=== PATIENT | female | born 1945 | race Caucasian/White ===

== ENCOUNTER 2017-01-28 15:47 | Inpatient (IN) | payer OTHER, MEDICARE ==
[2017-01-28 17:05] LABS: MCH 25.2 pg (25.7-33.7); MCHC 32.1 g/dl (32.0-36.0); MEAN CELL VOLUME 78.5 fl (80-96); MEAN PLT VOLUME 8.8 fl (7.5-11.1); PLATELET COUNT 197 K/MM3 (134-434); RDW 17.8 % (11.6-15.6); WHITE BLOOD COUNT 12.3 K/mm3 (4.0-10.0)
[2017-01-28 17:06] LABS: URINE APPEARANCE CLEAR; URINE BILIRUBIN NEGATIVE (NEGATIVE); URINE BLOOD 1+ (NEGATIVE); URINE COLOR YELLOW; URINE GLUCOSE (UA) NEGATIVE (NEGATIVE); URINE KETONE NEGATIVE (NEGATIVE); URINE NITRITE POSITIVE (NEGATIVE); URINE UROBILINOGEN NEGATIVE mg/dL (0.2-1.0)
[2017-01-28 17:07] LABS: URINE PROTEIN 1+ (NEGATIVE)
[2017-01-28 17:11] LABS: INR 1.11 (0.82-1.09); PROTHROMBIN TIME (PATIENT) 12.5 SEC (9.98-11.88)
[2017-01-28 17:14] LABS: ACTIVATED PTT 25.8 SECONDS (26.9-34.4)
--- NOTE | 2017-01-28 17:23 | PDOC ---
History of Present Illness - General Chief Complaint: Chest Pain Stated Complaint: FALL Time Seen by Provider: 01/28/17 16:10 History Source: Patient Exam Limitations: No Limitations - History of Present Illness Initial Comments: 01/28/17 17:08 Patient is a [71-year-old morbidly obese female with history of erb's paralysis , right knee replacement , IDDM, Wound to RLQ currently in wound care, BIBA, patient was at home, went to get up in the middle of the night and was unable to get back into bed " kept sliding off the side, but never fell to the floor. " Patient was calling her son but he did not some to help her until 1:30 pm. Patient was attempting to get back into bed for several hours but could not " get good footing" patient refused transfer to hospital by EMS initially they left then she attempted to stand again, started to become dizzy and could not stand safely on her legs so she called EMS again and was transferred to ER. Patient denies falling, no LOC, no SOB, has chest pain upon arrival to ER. Started on new insulin, name unknown, she "uses it once a week. " She admits to [facility] with the chest pain upon arrival. No fever. She reports she is normally able to walk with assistance of a cane. Denies fever, chills, cough, abdominal pain, nausea, vomiting, diaphoresis, palpitations, headache. Does have dizziness when she attempted to stand. Allergies: No known allergies Medications: [See medication list] Family History: Non-contributory Social History: Denies smoking, alcohol use, or IVDU Vital signs on arrival are [notable for pulse of 93.] Review of Systems GENERAL/CONSTITUTIONAL: [No fever or chills. No weakness. No weight change.] HEAD, EYES, EARS, NOSE AND THROAT: [No change in vision. No ear pain or discharge. No sore throat. ] CARDIOVASCULAR: [Right sided chest pain, [facility]. ] RESPIRATORY: [No cough, wheezing, or hemoptysis.] GASTROINTESTINAL: [No nausea, vomiting, diarrhea or constipation. No rectal bleeding.] GENITOURINARY: [No dysuria, frequency, or change in urination.] MUSCULOSKELETAL: [No joint or muscle swelling or pain. No neck or back pain.] SKIN AND BREASTS: [Erythema under both breasts with foul odor and under abdominal flap.] NEUROLOGIC: [No headache, + dizziness, loss of consciousness, or loss of sensation.] PSYCHIATRIC: [No depression or anxiety.] ENDOCRINE: [No increased thirst. No abnormal weight change.] HEMATOLOGIC/LYMPHATIC: [No anemia, easy bleeding, or history of blood clots.] ALLERGIC/IMMUNOLOGIC: [No hives or skin allergy. No latex allergy.] Physical Exam: GENERAL: [The patient is awake, alert, and fully oriented, in no acute distress. ] HEAD: [Normal with no signs of trauma.] EYES: [Pupils equal, round and reactive to light, extraocular movements intact, sclera anicteric, conjunctiva clear.] ENT: [Ears normal, nares patent, oropharynx clear without exudates. Moist mucous membranes. No uvula deviation] NECK: [Normal range of motion, supple without lymphadenopathy, JVD, or masses.] LUNGS: [Breath sounds equal, clear to auscultation bilaterally. No wheezes, and no crackles.] HEART: [Regular rate and rhythm, normal S1 and S2 without murmur, rub or gallop. ] ABDOMEN: [Soft, nontender, normoactive bowel sounds. No guarding, no rebound. No masses. No bruising or abrasions] MUSCULOSKELETAL: [Normal range of motion, no edema. No clubbing or cyanosis. No cords, erythema, or tenderness. No CVA Tenderness with fist.] NEUROLOGICAL: [Cranial nerves II through XII grossly intact. Normal speech, normal gait.] SKIN: [Warm, Dry, normal turgor, Erythema and foul odor under bilateral breasts and under abdominal flap.] 01/28/17 17:23 01/28/17 18:44 Past History - Past Medical History Allergies/Adverse Reactions: Allergies Allergy/AdvReac Type Severity Reaction Status Date / Time No Known Allergies Allergy Verified 10/28/14 04:52 Home Medications: Ambulatory Orders Aspirin [ASA -] 81 mg PO DAILY 10/05/13 Clopidogrel Bisulfate [Clopidogrel] 75 mg PO DAILY 10/05/13 Gabapentin 300 mg PO BID 10/05/13 Losartan Potassium 100 mg PO DAILY 10/05/13 Morphine Sulfate 30 mg PO Q4HWA 10/05/13 Simvastatin [Zocor -] 40 mg PO HS 10/05/13 Morphine *Immediate Release* [Msir -] 30 mg PO Q4H 03/15/14 Nystatin Powder [Nystop Powder -] 1 applic TP DAILY applic 10/30/14 Dulaglutide [Trulicity] 1.5 mg SQ WEEKLY 12/09/16 Anemia: No Asthma: No Cancer: No Cardiac Disorders: Yes (CARDIAC STENT X2) CVA: No COPD: No CHF: No Dementia: No Diabetes: Yes GI Disorders: No Disorders: No HTN: No Hypercholesterolemia: No Liver Disease: No Seizures: No Thyroid Disease: No Other medical history: chronic wound RLE hyperbaric tx - Surgical History Abdominal Surgery: No Appendectomy: No Cardiac Surgery: Yes (STENTS 5 yrs ago) Cholecystectomy: Yes Lung Surgery: No Neurologic Surgery: No Orthopedic Surgery: Yes (knee replacement 2005 - knee surgeries following that ) - Suicide/Smoking/Psychosocial Hx Smoking Status: No Smoking History: Never smoked Have you smoked in the past 12 months: No Number of Cigarettes Smoked Daily: 0 If you are a former smoker, when did you quit?: 15 years ago Cigars Per Day: 0 Information on smoking cessation initiated: No 'Breaking Loose' booklet given: 03/15/14 Hx Alcohol Use: No Drug/Substance Use Hx: No Substance Use Type: None Hx Substance Use Treatment: No *Physical Exam - Vital Signs Last Vital Signs Temp Pulse Resp BP Pulse Ox 98.1 F 93 H 24 145/79 98 01/28/17 16:14 01/28/17 16:14 01/28/17 16:14 01/28/17 16:14 01/28/17 16:20 ED Treatment Course - LABORATORY CBC & Chemistry Diagram: 01/28/17 04:45 01/28/17 04:45 - ADDITIONAL ORDERS Additional order review: Laboratory Results 01/28/17 17:00 Urine Color Yellow Urine Appearance Clear Urine pH 5.0 Ur Specific [place] 1.011 Urine Protein 1+ H Urine Glucose (UA) Negative Urine Ketones Negative Urine Blood 1+ H Urine Nitrite Positive Urine Bilirubin Negative Urine Urobilinogen Negative - RADIOLOGY Radiology Studies Ordered: Category Date Time Status CHEST - PA [RAD] Stat Radiology 01/28/17 16:15 Taken Medical Decision Making - Medical Decision Making 01/28/17 17:29 A/P: Patient here for evaluation of weakness unable to stand due to body habitus patient was attempting to stand up from the side of her bed but could not gain balance was there for several hours until son came, brought in by EMS because of dizziness after attempting to stand. Patient denies falling and hitting her head, started to have chest pain upon arrival to emergency department. Patient denies any headache, no dizziness upon arrival. Plan: CBC, CMP, cardiac enzymes EKG chest x-ray Urinalysis, urine culture Laboratory Results - last 24 hr 01/28/17 01/28/17 01/28/17 04:45 04:45 17:00 WBC 12.3 H RBC 4.40 Hgb 11.1 Hct 34.5 MCV 78.5 L MCH 25.2 L MCHC 32.1 RDW 17.8 H Plt Count 197 MPV 8.8 Neutrophils % No Result Required. Lymphocytes % No Result Required. PT with INR 12.50 H INR 1.11 PTT (Actin FS) 25.8 L Urine Color Yellow Urine Appearance Clear Urine pH 5.0 Ur Specific [place] 1.011 Urine Protein 1+ H Urine Glucose (UA) Negative Urine Ketones Negative Urine Blood 1+ H Urine Nitrite Positive Urine Bilirubin Negative Urine Urobilinogen Negative Patient with urinary tract infection., Elevated WBCs with nitrate positive. We will give Rocephin 1 g, blood cultures prior to antibiotic administration, patient's son is now at bedside who brought patient's medications with him she is on trulicity insulin and also on Cipro for wound infection that she did not tell us previously. Patient of Dr. Leahy. Sampson also reports that patient may have hit her chest against a chair at home yesterday. EKG: Twelve-lead EKG was performed and reviewed byRaúl and Dr. Panda. There is regular rhythm with a rate of 92. The axis is normal. The intervals are normal. There are no ST or T wave abnormalities. Impression: Normal twelve-lead EKG 01/28/17 17:47 01/28/17 18:02 Laboratory Results - last 24 hr 01/28/17 01/28/17 01/28/17 04:45 04:45 04:45 WBC 12.3 H RBC 4.40 Hgb 11.1 Hct 34.5 MCV 78.5 L MCH 25.2 L MCHC 32.1 RDW 17.8 H Plt Count 197 MPV 8.8 Neutrophils % No Result Required. Lymphocytes % No Result Required. PT with INR 12.50 H INR 1.11 PTT (Actin FS) 25.8 L Sodium 139 Potassium 5.2 H D Chloride 105 Carbon Dioxide 29 Anion Gap 5 L BUN 16 D Creatinine 1.2 H D Creat Clearance w eGFR 44.41 Random Glucose 124 H D Calcium 8.1 L Total Bilirubin 0.6 AST 24 D ALT 18 Alkaline Phosphatase 98 Creatine Kinase 86 Troponin I < 0.02 Total Protein 5.3 L Albumin 2.3 L D Urine Color Urine Appearance Urine pH Ur Specific [place] Urine Protein Urine Glucose (UA) Urine Ketones Urine Blood Urine Nitrite Urine Bilirubin Urine Urobilinogen 01/28/17 17:00 WBC RBC Hgb Hct MCV MCH MCHC RDW Plt Count MPV Neutrophils % Lymphocytes % PT with INR INR PTT (Actin FS) Sodium Potassium Chloride Carbon Dioxide Anion Gap BUN Creatinine Creat Clearance w eGFR Random Glucose Calcium Total Bilirubin AST ALT Alkaline Phosphatase Creatine Kinase Troponin I Total Protein Albumin Urine Color Yellow Urine Appearance Clear Urine pH 5.0 Ur Specific [place] 1.011 Urine Protein 1+ H Urine Glucose (UA) Negative Urine Ketones Negative Urine Blood 1+ H Urine Nitrite Positive Urine Bilirubin Negative Urine Urobilinogen Negative Spoke to Dr. Leahy, patient to be admitted under his service, telemetry, chest pain urinary tract infection. Consult with cardiology ordered. Dr. Sarmiento covering for Dr. Finch, made aware of patient case. Will follow 01/28/17 18:10 01/28/17 18:35 *DC/Admit/Observation/Transfer Diagnosis at time of Disposition: Chest pain Qualifiers: Chest pain type: other chest pain Qualified Code(s): R07.89 - Other chest pain Urinary tract infection Qualifiers: Urinary tract infection type: site unspecified Hematuria presence: without hematuria Qualified Code(s): N39.0 - Urinary tract infection, site not specified - Discharge Dispostion Admit: Yes - Referrals - Patient Instructions - Post Discharge Activity
[2017-01-28 17:37] LABS: ALBUMIN 2.3 g/dl (3.4-5.0); ANION GAP 5 (8-16); CALCIUM 8.1 mg/dL (8.5-10.1); CO2 29 mmol/L (21-32); GLUCOSE,RANDOM 124 mg/dL (74-106); SGPT/ALT 18 U/L (12-78)
[2017-01-28] MEDS ORDERED: CEFTRIAXONE 1,000 MG in DEXTROSE 5%-WATER - 50 ML IVPB ONE (17:37)
[2017-01-28 17:42] LABS: URINE BACTERIA MODERATE /hpf (NONE SEEN); URINE HYALINE CAST 1 /lpf; URINE MUCUS RARE; URINE RBC 3 /hpf (0-3); URINE WBC 1 /hpf (3-5)
[2017-01-28 17:42] LABS: ALK PHOS 98 U/L (45-117); BILIRUBIN,TOTAL 0.6 mg/dL (0.2-1.0); CPK 86 IU/L (26-192); CREATININE 1.2 mg/dL (0.55-1.02); SGOT/AST 24 U/L (15-37); TOT PROT 5.3 g/dl (6.4-8.2); TROPONIN I < 0.02 ng/ml (0.00-0.05)
[2017-01-28] MEDS ORDERED: CEFTRIAXONE 1 GM/50 ML BAG ONE (17:50)
[2017-01-28 19:31] LABS: PLATELET ESTIMATE ADEQUATE; TOTAL CELLS COUNTED 100
[2017-01-28] MEDS ORDERED: morphine SULFATE IMMEDIATE RELEASE 30 MG TAB PO PRN (19:46)
[2017-01-28] MEDS ORDERED: ALPRAZolam 0.25 MG TABLET PO PRN (19:49)
[2017-01-28 20:37] LABS: CPK 93 IU/L (26-192); TROPONIN I < 0.02 ng/ml (0.00-0.05)
[2017-01-28] MEDS: morphine SO4 SUSTAINED ACTING 30 MG TABLET.SA PO SCH (20:58)
[2017-01-28] MEDS: ATORVASTATIN CA 20 MG TABLET (FP) PO SCH ×2 (20:59→21:29)
[2017-01-28] MEDS: LEVOTHYROXINE NA 25 MCG TABLET (FP) PO SCH (20:59)
[2017-01-28] MEDS: GABAPENTIN 300 MG CAPSULE (FP) PO SCH (21:00)
[2017-01-28] MEDS ORDERED: PATIENT'S OWN MEDICATION (NON-FORMULARY) (Dulaglutide [Trulicity] 1.5 MG) SQ SCH (21:45)
[2017-01-28] MEDS: morphine SULFATE IMMEDIATE RELEASE 30 MG TAB PO PRN (22:24)
[2017-01-28] MEDS: NYSTATIN POWDER 100,000 UNITS/GM - 15 GM TOPICAL POWDER TP SCH (22:25)
[2017-01-28 22:30] LABS: URINE LEUK ESTERASE Negative (NEGATIVE)
[2017-01-29] MEDS: morphine SULFATE IMMEDIATE RELEASE 30 MG TAB PO PRN ×3 (06:32→22:32)
[2017-01-29] MEDS: LEVOTHYROXINE NA 25 MCG TABLET (FP) PO SCH (06:32)
[2017-01-29 07:01] LABS: BASOPHIL 0.5 % (0-2.0); EOSINOPHIL 4.1 % (0-4.5); MCH 25.1 pg (25.7-33.7); MCHC 31.7 g/dl (32.0-36.0); MEAN CELL VOLUME 79.1 fl (80-96); MEAN PLT VOLUME 8.7 fl (7.5-11.1); NEUTROPHILS 77.2 % (42.8-82.8); PLATELET COUNT 205 K/MM3 (134-434); RDW 18.3 % (11.6-15.6); WHITE BLOOD COUNT 9.6 K/mm3 (4.0-10.0)
[2017-01-29 07:03] VITALS: BMI 64.5
[2017-01-29 07:05] LABS: ANION GAP 6 (8-16); BILIRUBIN,TOTAL 0.4 mg/dL (0.2-1.0); CALCIUM 7.7 mg/dL (8.5-10.1); CO2 30 mmol/L (21-32); CREATININE 1.1 mg/dL (0.55-1.02); GLUCOSE,RANDOM 74 mg/dL (74-106); SGOT/AST 16 U/L (15-37); SGPT/ALT 16 U/L (12-78); TOT PROT 4.7 g/dl (6.4-8.2)
[2017-01-29 07:08] LABS: ALK PHOS 87 U/L (45-117); CPK 76 IU/L (26-192); TROPONIN I < 0.02 ng/ml (0.00-0.05)
--- NOTE | 2017-01-29 08:06 | PN ---
Progress Note (short form) - Note Progress Note: slipped out of her bed yesterday am, could not goet up, help arrived 12 hours later, still could not ambulate afterwards, so came in by ems. has been feeling weak with intermittent chest pains for past 2-3 weeks. attending wound care and ID with dr Jennings for right below knee chronic wound, recently oozing again. h/o infected right knee prosthesis-hardware removal-abx.sponge for months-again total knee replacement with chronic opening. last year underwent arthroscopic cleaning and debridement of right knee, ortho did not recommend hardware removal. now on oral abx-unsure what CBC, BMP 01/29/17 05:00 01/29/17 05:00 serial cardiac enzymes are negative mild UTI? Vital Signs Period Temp Pulse Resp BP Sys/Gottlieb Pulse Ox Last 24 Hr 98.1 F-99.3 F 78-93 18-24 117-145/63-79 98-99 s1s2 rrr lungs cta extensive erythema, excoriations in armpits, below breast, abdomen both legs are scaly erythematous, below right knee puctate opening with copious amount of serous discharge awake alert oriented IMP slip, weakness mild UTI chronic knee infection chest pain h/o CAD HTN NIDDM Morbid obesity osteoarthritis PLAN iv abx culture wound blood/urine culture pending ID/cardiology eval requested ECHO physical therapy
--- NOTE | 2017-01-29 09:03 | CON.CARD ---
Cardiology Consult (text) - Consultation Consultation Note: Cardiology Consult for [facility] Dictated IMP: Mechanical Fall, weakness LE Leukocytosis CAD w/ remote h/o PCI Chest pain: typical and atypical features x 1 one week DM REC: From CV perspective, cardiac enzymes are negative. Echo today. Plan for persantine MIBI prior to d/c. Infectious w/u as per ID. Consider Neuro Eval if weakness LE persists.
[2017-01-29] MEDS ORDERED: CEFTRIAXONE 1 G/50 ML PREMIX 1 ML IVPB SCH (10:00)
[2017-01-29] MEDS: AMMONIUM LACTATE 12% LOTION 225 GM BOTTLE TP PRN (10:15)
[2017-01-29] MEDS: ENOXAPARIN NA (PORCINE) 40 MG/0.4 ML DISP.SYRIN SQ SCH (10:15)
[2017-01-29] MEDS: CLOPIDOGREL BISULFATE 75 MG TABLET (FP) PO SCH (10:16)
[2017-01-29] MEDS: ASPIRIN 81 MG CHEWABLE TABLETS PO SCH (10:16)
[2017-01-29] MEDS: LOSARTAN POTASSIUM 50 MG TABLET (FP) PO SCH (10:16)
[2017-01-29] MEDS: HYDROCHLOROTHIAZIDE 25 MG TABLET (FP) PO SCH (10:16)
[2017-01-29] MEDS: morphine SO4 SUSTAINED ACTING 30 MG TABLET.SA PO SCH ×2 (10:18→20:08)
[2017-01-29] MEDS: INSULIN SLIDING SCALE (NOVOLOG) 1 VIAL SQ SCH ×4 (10:50→22:01)
[2017-01-29] MEDS: NYSTATIN POWDER 100,000 UNITS/GM - 15 GM TOPICAL POWDER TP SCH ×2 (10:51→22:32)
[2017-01-29] MEDS: GABAPENTIN 300 MG CAPSULE (FP) PO SCH ×2 (10:52→22:01)
--- NOTE | 2017-01-29 12:06 | CONS ---
DATE OF CONSULTATION: 01/29/2017 REQUESTING PHYSICIAN: The consultation is requested by Dr. Horner for fall, coronary artery disease, chest pain. HISTORY OF PRESENT ILLNESS: The patient is a 71-year-old female with morbid obesity, coronary artery disease and remote history of coronary stent, right knee replacement complicated by hardware infection with multiple right knee surgeries, hyperlipidemia and diabetes. She got up from bed, slipped and was unable to get back up. She was on the ground she reports for several hours. In that setting, she became stressed and began experiencing substernal chest pressure. She described it as central, tight, nonradiating, no associated nausea, vomiting, diaphoresis, or shortness of breath. She reports having a similar episode of substernal chest pressure approximately 1 week prior to admission, she laid down and it "went away." She did not notify Dr. Simpson. She normally walks with the cane and denies exertional chest pressure. She has not had this chest pressure with exertion. PAST MEDICAL HISTORY: Her past medical history includes hyperlipidemia, coronary disease with prior stent, diabetes, morbid obesity and prior right knee surgery complicated by wound infection and multiple subsequent surgeries. ALLERGIES: None. MEDICATIONS: Home medications include: 1. Zocor 40. 2. MSIR 30 mg q.4 p.r.n. 3. Losartan 100 daily for hypertension. 4. Neurontin 300 b.i.d. 5. Trulicity. 6. Plavix 75 daily. 7. Aspirin 81 daily. FAMILY HISTORY: Noncontributory. SOCIAL HISTORY: Former smoker. PHYSICAL EXAMINATION: General: No distress Vitals: Afebrile. Temperature 98.4, blood pressure 130/64, O2 98 on room air. Neck: No bruits. Heart: S1, S2 regular. Chest: Clear. Abdomen: Obese, soft, nontender. Extremities: 1+ edema with venous stasis changes. EKG shows sinus rhythm with frequent APCs and poor R wave progression. Cannot rule out old anteroseptal CA, versus attenuation of the signal due to body habitus. Blood cultures are pending. White count was elevated at 12.3 on admission, hematocrit 35, platelets 197, INR 1.1, sodium 139, potassium 5.1, creatinine 1.1. LFTs are normal. CK and troponin are negative x3 sets. Chest x-ray showed no evidence of active disease. IMPRESSION: 1. Mechanical fall, lower extremity weakness. 2. Leukocytosis. 3. Coronary artery disease with remote history of percutaneous coronary intervention. 4. Chest pain for at least 1 week with both typical and atypical features - cardiac enzymes negative. 5. Diabetes. RECOMMENDATIONS: 1. From the cardiac perspective, cardiac enzymes are negative. Will obtain echo today to assess LV function, rule out pericardial disease and to rule out pulmonary hypertension. 2. Will plan for pharmacologic stress test prior to discharge. 3. Infectious workup as per ID. 4. Consider neurological evaluation if lower extremity weakness persists. Thank you for the consultation. REKHA EUGENE M.D. [id number]
--- NOTE | 2017-01-29 14:34 | PN ---
Progress Note (short form) - Note Progress Note: ID Consult dictated Bilateral LE cellulitis Chronically infected R TKR Leukocytosis Diabetes mellitus Morbid obesity Await c/s ESR CRP Empiric zosyn/ vancomycin Chronic antibiotic suppression thereafter
--- NOTE | 2017-01-29 14:58 | CONS ---
DATE OF CONSULTATION: DATE OF DICTATION: 01/29/2017 The patient is a 71-year-old female evaluated for chronically infected right total knee replacement as well as bilateral lower extremity cellulitis. The patient was admitted to the hospital on January 28, 2017, after slipping out of bed onto the floor. She was unable to get up or ambulate. She was taken to the emergency room where she was admitted. She was noted to have an elevated white blood cell count of 12.3. In addition, she was noted to have erythema and warmth of bilateral lower extremities as well as serous drainage from a chronically infected left total knee replacement wound. Cultures were obtained, and she was empirically treated with ceftriaxone. The patient denies any traumatic injury to her lower extremities. The patient has a long history of a chronically infected right total knee replacement. She had undergone knee replacement surgery in 2005. Her postoperative course was complicated by infected prosthesis which required several revisions. According to the notes, she has had as many as 7 surgeries. Most recently she was evaluated by orthopedics and felt not to be an operative candidate. She had been on chronic suppressive antibiotic therapy in the past; however, not of late. She was recently treated with a course of ciprofloxacin for a positive wound culture, pseudomonas. She denies any associated fever or chills. PAST MEDICAL HISTORY: Positive for morbid obesity, insulin-dependent diabetes mellitus, coronary artery disease, hyperlipidemia, COPD. PAST SURGICAL HISTORY: Status post coronary artery stent. Past surgical history as above, also includes cholecystectomy and a hysterectomy. ALLERGIES: No known allergies. MEDICATIONS: Aspirin, Plavix, Neurontin, losartan, morphine sulfate, Zocor. SOCIAL HISTORY: Lives at home. She ambulates with a cane. REVIEW OF SYSTEMS: Neurologic: No loss of consciousness, seizure activity, or focal weakness. Cardiac: Negative chest pain or palpitations. Respiratory: Negative cough or sputum production. Gastrointestinal: Negative vomiting or diarrhea. Genitourinary: Negative for urinary tract infection. LABORATORY DATA: White count on admission 12.3, presently 9.6, hematocrit 31.7, platelet count 205, BUN 17, creatinine 1.1. Urinalysis negative. Blood and wound cultures are pending. Recent wound culture from November of this year grew pseudomonas. According to the notes, she has had wound cultures in the past which have grown MRSA, Staphylococcus epidermidis, E. coli, and enterococcus. PHYSICAL EXAMINATION: General: She is awake and alert. She is in no acute distress. Vital Signs: Temperature 98.7, blood pressure 134/67, pulse 82, regular. Respirations 20 per minute. HEENT: Sclerae were anicteric. Cardiovascular: Heart sounds S1, S2. Lungs: Clear. Abdomen: Obese, soft, nontender. Extremities: Examination of the lower extremities, there is bilateral lower extremity edema and chronic venous stasis dermatitis. There is confluent erythema and warmth present, left greater than right lower extremity extending from the area of the ankle to below the knee. There is a healed surgical wound of the right knee with a sinus which is draining serous fluid. IMPRESSION: 1. Cellulitis of the lower extremities bilaterally. 2. Chronically infected right total knee replacement. 3. Leukocytosis. 4. Diabetes mellitus. PLAN: Await wound and blood culture results. Obtain sedimentation rate and C-reactive protein. Will treat cellulitis with vancomycin and Zosyn. She will require long-term antibiotic suppression for her chronically infected right total knee replacement. She understands that in the absence of removing any infected hardware and surgical debridement, cure of infection not likely. Will follow. Thank you for the kind referral. REKHA PIERRE M.D. [id number]
[2017-01-29] MEDS: VANCOMYCIN 1,000 MG in DEXTROSE 5%-WATER - 250 ML IVPB SCH (16:43)
[2017-01-29] MEDS: PIPERACILLIN/TAZOB 4.5 GM 4.5 GM in DEXTROSE 5%-WATER - 100 ML IVPB SCH (17:03)
[2017-01-29] MEDS: ATORVASTATIN CA 20 MG TABLET (FP) PO SCH (22:01)
[2017-01-30] MEDS: PIPERACILLIN/TAZOB 4.5 GM 4.5 GM in DEXTROSE 5%-WATER - 100 ML IVPB SCH ×3 (01:56→17:14)
[2017-01-30] MEDS: VANCOMYCIN 1,000 MG in DEXTROSE 5%-WATER - 250 ML IVPB SCH ×2 (03:06→14:51)
[2017-01-30] MEDS: INSULIN SLIDING SCALE (NOVOLOG) 1 VIAL SQ SCH ×4 (06:23→22:51)
[2017-01-30] MEDS: LEVOTHYROXINE NA 25 MCG TABLET (FP) PO SCH (06:23)
--- NOTE | 2017-01-30 09:26 | PN ---
Progress Note, Physician Chief Complaint: TELE: NSR APCS History of Present Illness: Cardiac enzymes all negative - Current Medication List Current Medications: Active Medications Alprazolam (Xanax -) 0.5 mg PO Q12H PRN PRN Reason: ANXIETY Aspirin (Asa -) 81 mg PO DAILY [facility] Last Admin: 01/29/17 10:16 Dose: 81 mg Atorvastatin Calcium (Lipitor -) 20 mg PO HS [facility] Last Admin: 01/29/17 22:01 Dose: 20 mg Clopidogrel Bisulfate (Plavix -) 75 mg PO DAILY [facility] Last Admin: 01/29/17 10:16 Dose: 75 mg Enoxaparin Sodium (Lovenox -) 40 mg SQ DAILY [facility] Last Admin: 01/29/17 10:15 Dose: 40 mg Gabapentin (Neurontin -) 300 mg PO BID [facility] Last Admin: 01/29/17 22:01 Dose: 300 mg Hydrochlorothiazide (Hctz -) 25 mg PO DAILY [facility] Last Admin: 01/29/17 10:16 Dose: 25 mg Vancomycin HCl 1,000 mg/ (Dextrose) 250 mls @ 166.667 mls/hr IVPB Q12H [facility] Last Admin: 01/30/17 03:06 Dose: 166.667 mls/hr Piperacillin Sod/Tazobactam (Sod 4.5 gm/ Dextrose) 100 mls @ 200 mls/hr IVPB Q8H-IV EFRAIN PRN Reason: Protocol Last Admin: 01/30/17 01:56 Dose: 200 mls/hr Insulin Aspart (Novolog Vial Sliding Scale -) 1 vial SQ ACHS EFRAIN PRN Reason: Protocol Last Admin: 01/30/17 06:23 Dose: Not Given Lactic Acid (Lac-Hydrin 12) 1 applic TP BID PRN PRN Reason: DRY SKIN Last Admin: 01/29/17 10:15 Dose: 1 applic Levothyroxine Sodium (Synthroid -) 25 mcg PO DAILY@0700 [facility] Last Admin: 01/30/17 06:23 Dose: 25 mcg Losartan Potassium (Cozaar -) 100 mg PO DAILY [facility] Last Admin: 01/29/17 10:16 Dose: 100 mg Morphine Sulfate (Ms Contin -) 60 mg PO Q12H [facility] Last Admin: 01/29/17 20:08 Dose: 60 mg Morphine Sulfate (Msir -) 30 mg PO Q4H PRN PRN Reason: PAIN LEVEL 6-10 Last Admin: 01/29/17 22:32 Dose: 30 mg Non-Formulary Medication (Dulaglutide [Trulicity]) 1.5 mg SQ [place]@1000 [facility] Nystatin (Nystop Powder -) 1 applic TP BID [facility] Last Admin: 01/29/17 22:32 Dose: 1 applic - Objective Vital Signs: Vital Signs Temperature 98.7 F 01/30/17 05:45 Pulse Rate 75 01/30/17 05:45 Respiratory Rate 20 01/30/17 05:45 Blood Pressure 122/67 01/30/17 05:45 O2 Sat by Pulse Oximetry (%) 97 01/29/17 22:00 Constitutional: Yes: Calm Cardiovascular: Yes: Regular Rate and Rhythm Respiratory: Yes: CTA Bilaterally Gastrointestinal: Yes: Soft, Abdomen, Obese Edema: Yes Edema: LLE: 1+, RLE: 1+ Neurological: Yes: Alert, Oriented Labs: CBC, BMP 01/29/17 05:00 01/29/17 05:00 INR, PTT INR 1.11 (0.82-1.09) 01/28/17 04:45 Microbiology 01/28/17 17:45 Blood - Peripheral Venous Blood Culture - Preliminary NO GROWTH OBTAINED AFTER 24 HOURS, INCUBATION TO CONTINUE FOR 4 DAYS. 01/28/17 17:45 Blood - Peripheral Venous Blood Culture - Preliminary NO GROWTH OBTAINED AFTER 24 HOURS, INCUBATION TO CONTINUE FOR 4 DAYS. Laboratory Tests 01/28/17 01/28/17 01/29/17 04:45 19:50 05:00 WBC 9.6 Hgb 10.1 L Plt Count 205 Troponin I < 0.02 < 0.02 01/29/17 05:00 WBC Hgb Plt Count Troponin I < 0.02 - ....Imaging EKG: Image Reviewed Assessment/Plan IMP: Mechanical Fall, weakness LE Leukocytosis CAD w/ remote h/o PCI Chest pain: typical and atypical features x 1 one week DM REC: 1. Abx as per ID 2. Plan for Persantine MIBI prior to d/c: will order for Wednesday
[2017-01-30] MEDS: morphine SULFATE IMMEDIATE RELEASE 30 MG TAB PO PRN ×2 (10:24→20:36)
[2017-01-30] MEDS: morphine SO4 SUSTAINED ACTING 30 MG TABLET.SA PO SCH ×2 (10:25→19:55)
[2017-01-30] MEDS: ASPIRIN 81 MG CHEWABLE TABLETS PO SCH (10:26)
[2017-01-30] MEDS: NYSTATIN POWDER 100,000 UNITS/GM - 15 GM TOPICAL POWDER TP SCH ×2 (10:26→22:53)
[2017-01-30] MEDS: ENOXAPARIN NA (PORCINE) 40 MG/0.4 ML DISP.SYRIN SQ SCH (10:26)
[2017-01-30] MEDS: HYDROCHLOROTHIAZIDE 25 MG TABLET (FP) PO SCH (10:26)
[2017-01-30] MEDS: GABAPENTIN 300 MG CAPSULE (FP) PO SCH ×2 (10:26→22:51)
[2017-01-30] MEDS: LOSARTAN POTASSIUM 50 MG TABLET (FP) PO SCH (10:26)
[2017-01-30] MEDS: CLOPIDOGREL BISULFATE 75 MG TABLET (FP) PO SCH (10:26)
[2017-01-30] MEDS: AMMONIUM LACTATE 12% LOTION 225 GM BOTTLE TP PRN (10:27)
--- NOTE | 2017-01-30 13:32 | PN ---
Progress Note, Physician History of Present Illness: No c/o leg pain Afebrile WBC improved - Current Medication List Current Medications: Active Medications Alprazolam (Xanax -) 0.5 mg PO Q12H PRN PRN Reason: ANXIETY Aspirin (Asa -) 81 mg PO DAILY [facility] Last Admin: 01/30/17 10:26 Dose: 81 mg Atorvastatin Calcium (Lipitor -) 20 mg PO HS [facility] Last Admin: 01/29/17 22:01 Dose: 20 mg Clopidogrel Bisulfate (Plavix -) 75 mg PO DAILY [facility] Last Admin: 01/30/17 10:26 Dose: 75 mg Enoxaparin Sodium (Lovenox -) 40 mg SQ DAILY [facility] Last Admin: 01/30/17 10:26 Dose: 40 mg Gabapentin (Neurontin -) 300 mg PO BID [facility] Last Admin: 01/30/17 10:26 Dose: 300 mg Hydrochlorothiazide (Hctz -) 25 mg PO DAILY [facility] Last Admin: 01/30/17 10:26 Dose: 25 mg Vancomycin HCl 1,000 mg/ (Dextrose) 250 mls @ 166.667 mls/hr IVPB Q12H [facility] Last Admin: 01/30/17 03:06 Dose: 166.667 mls/hr Piperacillin Sod/Tazobactam (Sod 4.5 gm/ Dextrose) 100 mls @ 200 mls/hr IVPB Q8H-IV [facility] PRN Reason: Protocol Last Admin: 01/30/17 10:26 Dose: 200 mls/hr Insulin Aspart (Novolog Vial Sliding Scale -) 1 vial SQ ACHS [facility] PRN Reason: Protocol Last Admin: 01/30/17 12:51 Dose: Not Given Lactic Acid (Lac-Hydrin 12) 1 applic TP BID PRN PRN Reason: DRY SKIN Last Admin: 01/30/17 10:27 Dose: 1 applic Levothyroxine Sodium (Synthroid -) 25 mcg PO DAILY@0700 [facility] Last Admin: 01/30/17 06:23 Dose: 25 mcg Losartan Potassium (Cozaar -) 100 mg PO DAILY [facility] Last Admin: 01/30/17 10:26 Dose: 100 mg Morphine Sulfate (Ms Contin -) 60 mg PO Q12H [facility] Last Admin: 01/30/17 10:25 Dose: 60 mg Morphine Sulfate (Msir -) 30 mg PO Q4H PRN PRN Reason: PAIN LEVEL 6-10 Last Admin: 01/30/17 10:24 Dose: 30 mg Non-Formulary Medication (Dulaglutide [Trulicity]) 1.5 mg SQ [place]@1000 [facility] Nystatin (Nystop Powder -) 1 applic TP BID [facility] Last Admin: 01/30/17 10:26 Dose: 1 applic - Objective Vital Signs: Vital Signs Temperature 97.2 F L 01/30/17 12:10 Pulse Rate 74 01/30/17 12:10 Respiratory Rate 20 01/30/17 12:10 Blood Pressure 129/64 01/30/17 12:10 O2 Sat by Pulse Oximetry (%) 97 01/29/17 22:00 Constitutional: Yes: No Distress, Obese Cardiovascular: Yes: Regular Rate and Rhythm, S1, S2 Respiratory: Yes: CTA Bilaterally Gastrointestinal: Yes: Normal Bowel Sounds, Abdomen, Obese Extremities: Yes: Other (+ LE edema/ erythema/ chronic stasis + serous drainage from surgical wound) Labs: CBC, BMP 01/29/17 05:00 01/29/17 05:00 INR, PTT INR 1.11 (0.82-1.09) 01/28/17 04:45 Assessment/Plan Bilateral LE cellulitis Chronically infected R TKR Leukocytosis-improved Diabetes mellitus Morbid obesity Continue empiric vancomycin/ zosyn
[2017-01-30] MEDS: ATORVASTATIN CA 20 MG TABLET (FP) PO SCH (22:51)
[2017-01-31] MEDS ORDERED: PT OWN MED DRAWER 7, Y5N ONE ×2 (02:26→13:45)
[2017-01-31] MEDS: PIPERACILLIN/TAZOB 4.5 GM 4.5 GM in DEXTROSE 5%-WATER - 100 ML IVPB SCH ×3 (02:43→17:54)
[2017-01-31] MEDS: morphine SULFATE IMMEDIATE RELEASE 30 MG TAB PO PRN ×3 (02:43→22:55)
[2017-01-31] MEDS: VANCOMYCIN 1,000 MG in DEXTROSE 5%-WATER - 250 ML IVPB SCH ×2 (02:43→14:19)
[2017-01-31] MEDS: INSULIN SLIDING SCALE (NOVOLOG) 1 VIAL SQ SCH ×4 (06:08→21:20)
[2017-01-31] MEDS: LEVOTHYROXINE NA 25 MCG TABLET (FP) PO SCH (06:31)
[2017-01-31] MEDS: morphine SO4 SUSTAINED ACTING 30 MG TABLET.SA PO SCH ×2 (08:35→21:19)
[2017-01-31] MEDS: ENOXAPARIN NA (PORCINE) 40 MG/0.4 ML DISP.SYRIN SQ SCH (09:17)
[2017-01-31] MEDS: GABAPENTIN 300 MG CAPSULE (FP) PO SCH ×2 (09:18→21:20)
[2017-01-31] MEDS: LOSARTAN POTASSIUM 50 MG TABLET (FP) PO SCH (09:18)
[2017-01-31] MEDS: HYDROCHLOROTHIAZIDE 25 MG TABLET (FP) PO SCH (09:18)
[2017-01-31] MEDS: CLOPIDOGREL BISULFATE 75 MG TABLET (FP) PO SCH (09:18)
[2017-01-31] MEDS: ASPIRIN 81 MG CHEWABLE TABLETS PO SCH (09:18)
[2017-01-31] MEDS: NYSTATIN POWDER 100,000 UNITS/GM - 15 GM TOPICAL POWDER TP SCH ×2 (09:23→21:19)
--- NOTE | 2017-01-31 09:46 | PN ---
Progress Note, Physician Chief Complaint: no further CP TELE: NSR w/ rare APCs - Current Medication List Current Medications: Active Medications Alprazolam (Xanax -) 0.5 mg PO Q12H PRN PRN Reason: ANXIETY Last Admin: 01/31/17 08:35 Dose: 0.5 mg Aspirin (Asa -) 81 mg PO DAILY [facility] Last Admin: 01/31/17 09:18 Dose: 81 mg Atorvastatin Calcium (Lipitor -) 20 mg PO HS [facility] Last Admin: 01/30/17 22:51 Dose: 20 mg Clopidogrel Bisulfate (Plavix -) 75 mg PO DAILY [facility] Last Admin: 01/31/17 09:18 Dose: 75 mg Enoxaparin Sodium (Lovenox -) 40 mg SQ DAILY [facility] Last Admin: 01/31/17 09:17 Dose: 40 mg Gabapentin (Neurontin -) 300 mg PO BID [facility] Last Admin: 01/31/17 09:18 Dose: 300 mg Hydrochlorothiazide (Hctz -) 25 mg PO DAILY [facility] Last Admin: 01/31/17 09:18 Dose: 25 mg Vancomycin HCl 1,000 mg/ (Dextrose) 250 mls @ 166.667 mls/hr IVPB Q12H [facility] Last Admin: 01/31/17 02:43 Dose: 166.667 mls/hr Piperacillin Sod/Tazobactam (Sod 4.5 gm/ Dextrose) 100 mls @ 200 mls/hr IVPB Q8H-IV [facility] PRN Reason: Protocol Last Admin: 01/31/17 09:18 Dose: 200 mls/hr Insulin Aspart (Novolog Vial Sliding Scale -) 1 vial SQ ACHS [facility] PRN Reason: Protocol Last Admin: 01/31/17 06:08 Dose: Not Given Lactic Acid (Lac-Hydrin 12) 1 applic TP BID PRN PRN Reason: DRY SKIN Last Admin: 01/30/17 10:27 Dose: 1 applic Levothyroxine Sodium (Synthroid -) 25 mcg PO DAILY@0700 [facility] Last Admin: 01/31/17 06:31 Dose: 25 mcg Losartan Potassium (Cozaar -) 100 mg PO DAILY [facility] Last Admin: 01/31/17 09:18 Dose: 100 mg Morphine Sulfate (Ms Contin -) 60 mg PO Q12H [facility] Last Admin: 01/31/17 08:35 Dose: 60 mg Morphine Sulfate (Msir -) 30 mg PO Q4H PRN PRN Reason: PAIN LEVEL 6-10 Last Admin: 01/31/17 02:43 Dose: 30 mg Non-Formulary Medication (Dulaglutide [Trulicity]) 1.5 mg SQ [place]@1000 [facility] Last Admin: 01/31/17 09:19 Dose: 1.5 mg Nystatin (Nystop Powder -) 1 applic TP BID [facility] Last Admin: 01/31/17 09:23 Dose: 1 applic - Objective Vital Signs: Vital Signs Temperature 97.8 F 01/31/17 08:49 Pulse Rate 66 01/31/17 08:49 Respiratory Rate 20 01/31/17 08:53 Blood Pressure 129/60 01/31/17 08:49 O2 Sat by Pulse Oximetry (%) 96 01/31/17 08:53 Constitutional: Yes: Calm Cardiovascular: Yes: Regular Rate and Rhythm Respiratory: Yes: CTA Bilaterally Gastrointestinal: Yes: Soft, Abdomen, Obese Edema: Yes Edema: LLE: 1+, RLE: 1+ Neurological: Yes: Alert, Oriented ...Motor Strength: WNL Labs: CBC, BMP 01/29/17 05:00 01/29/17 05:00 INR, PTT INR 1.11 (0.82-1.09) 01/28/17 04:45 Microbiology 01/28/17 17:45 Blood - Peripheral Venous Blood Culture - Preliminary NO GROWTH OBTAINED AFTER 48 HOURS, INCUBATION TO CONTINUE FOR 3 DAYS. 01/28/17 17:45 Blood - Peripheral Venous Blood Culture - Preliminary NO GROWTH OBTAINED AFTER 48 HOURS, INCUBATION TO CONTINUE FOR 3 DAYS. - ....Imaging EKG: Image Reviewed Assessment/Plan IMP: Mechanical Fall, weakness LE Leukocytosis CAD w/ remote h/o PCI Chest pain: typical and atypical features x 1 one week DM REC: 1. Abx as per ID 2. Plan for Persantine MIBI prior to d/c: ordered for tomorrow Coverage for Daniel
[2017-01-31] MEDS ORDERED: PATIENT'S OWN MEDICATION (NON-FORMULARY) (Dulaglutide [Trulicity] 1.5 MG) SQ SCH (10:00)
--- NOTE | 2017-01-31 11:57 | PN ---
Progress Note (short form) - Note Progress Note: much better no chest pain no sob c/o pain in her knees no fever or chills vs Vital Signs Period Temp Pulse Resp BP Sys/Gottlieb Pulse Ox Last 24 Hr 98.7 F-99.0 F 75-82 18-20 121-134/50-67 97 Heent nad neck supple lungs clear heart no change ext edema present lungs clear Laboratory 01/28/17 01/28/17 01/28/17 04:45 04:45 04:45 WBC 12.3 K/mm3 H K/mm3 (4.0-10.0) RBC 4.40 M/mm3 M/mm3 (3.60-5.2) Hgb 11.1 GM/dL GM/dL (10.7-15.3) Hct 34.5 % % (32.4-45.2) MCV 78.5 fl L fl (80-96) MCH 25.2 pg L pg (25.7-33.7) MCHC 32.1 g/dl g/dl (32.0-36.0) RDW 17.8 % H % (11.6-15.6) Plt Count 197 K/MM3 K/MM3 (134-434) MPV 8.8 fl fl (7.5-11.1) Total Counted 100 Neutrophils % No Result Required. Neutrophils % (Manual) 93.0 % H* % (42.8-82.8) Lymphocytes % No Result Required. Lymphocytes % (Manual) 2.0 % L % (8-40) Monocytes % Monocytes % (Manual) 4 % % (3.8-10.2) Eosinophils % Eosinophils % (Manual) 1.0 % % (0-4.5) Basophils % Platelet Estimate Adequate PT with INR 12.50 SEC H SEC (9.98-11.88) INR 1.11 (0.82-1.09) PTT (Actin FS) 25.8 SECONDS L SECONDS (26.9-34.4) Sodium 139 mmol/L mmol/L (136-145) Potassium 5.2 mmol/L H D mmol/L (3.5-5.1) Chloride 105 mmol/L mmol/L (98-107) Carbon Dioxide 29 mmol/L mmol/L (21-32) Anion Gap 5 L (8-16) BUN 16 mg/dL D mg/dL (7-18) Creatinine 1.2 mg/dL H D mg/dL (0.55-1.02) Creat Clearance w eGFR 44.41 (>60) POC Glucometer Random Glucose 124 mg/dL H D mg/dL (74-106) Calcium 8.1 mg/dL L mg/dL (8.5-10.1) Total Bilirubin 0.6 mg/dL mg/dL (0.2-1.0) AST 24 U/L D U/L (15-37) ALT 18 U/L U/L (12-78) Alkaline Phosphatase 98 U/L U/L (45-117) Creatine Kinase 86 IU/L IU/L (26-192) Troponin I < 0.02 ng/ml ng/ml (0.00-0.05) Total Protein 5.3 g/dl L g/dl (6.4-8.2) Albumin 2.3 g/dl L D g/dl (3.4-5.0) Urine Color Urine Appearance Urine pH Ur Specific [place] Urine Protein Urine Glucose (UA) Urine Ketones Urine Blood Urine Nitrite Urine Bilirubin Urine Urobilinogen Ur Leukocyte Esterase Urine Bacteria Hyaline Casts Urine Mucus 01/28/17 01/28/17 01/28/17 17:00 19:50 21:21 WBC RBC Hgb Hct MCV MCH MCHC RDW Plt Count MPV Total Counted Neutrophils % Neutrophils % (Manual) Lymphocytes % Lymphocytes % (Manual) Monocytes % Monocytes % (Manual) Eosinophils % Eosinophils % (Manual) Basophils % Platelet Estimate PT with INR INR PTT (Actin FS) Sodium Potassium Chloride Carbon Dioxide Anion Gap BUN Creatinine Creat Clearance w eGFR POC Glucometer 165 UNITS UNITS (80-120) Random Glucose Calcium Total Bilirubin AST ALT Alkaline Phosphatase Creatine Kinase 93 IU/L IU/L (26-192) Troponin I < 0.02 ng/ml ng/ml (0.00-0.05) Total Protein Albumin Urine Color Yellow Urine Appearance Clear Urine pH 5.0 (5.0-8.0) Ur Specific [place] 1.011 (1.001-1.035) Urine Protein 1+ H (NEGATIVE) Urine Glucose (UA) Negative (NEGATIVE) Urine Ketones Negative (NEGATIVE) Urine Blood 1+ H (NEGATIVE) Urine Nitrite Positive (NEGATIVE) Urine Bilirubin Negative (NEGATIVE) Urine Urobilinogen Negative mg/dL mg/dL (0.2-1.0) Ur Leukocyte Esterase Negative (NEGATIVE) Urine Bacteria Moderate /hpf /hpf (NONE SEEN) Hyaline Casts 1 /lpf /lpf Urine Mucus Rare 01/29/17 01/29/17 01/29/17 05:00 05:00 16:49 WBC 9.6 K/mm3 K/mm3 (4.0-10.0) RBC 4.01 M/mm3 M/mm3 (3.60-5.2) Hgb 10.1 GM/dL L GM/dL (10.7-15.3) Hct 31.7 % L % (32.4-45.2) MCV 79.1 fl L fl (80-96) MCH 25.1 pg L pg (25.7-33.7) MCHC 31.7 g/dl L g/dl (32.0-36.0) RDW 18.3 % H % (11.6-15.6) Plt Count 205 K/MM3 K/MM3 (134-434) MPV 8.7 fl fl (7.5-11.1) Total Counted Neutrophils % 77.2 % % (42.8-82.8) Neutrophils % (Manual) Lymphocytes % 12.3 % D % (8-40) Lymphocytes % (Manual) Monocytes % 5.9 % % (3.8-10.2) Monocytes % (Manual) Eosinophils % 4.1 % D % (0-4.5) Eosinophils % (Manual) Basophils % 0.5 % % (0-2.0) Platelet Estimate PT with INR INR PTT (Actin FS) Sodium 139 mmol/L mmol/L (136-145) Potassium 5.1 mmol/L mmol/L (3.5-5.1) Chloride 103 mmol/L mmol/L (98-107) Carbon Dioxide 30 mmol/L mmol/L (21-32) Anion Gap 6 L (8-16) BUN 17 mg/dL mg/dL (7-18) Creatinine 1.1 mg/dL H mg/dL (0.55-1.02) Creat Clearance w eGFR 49.10 (>60) POC Glucometer 162 UNITS UNITS (80-120) Random Glucose 74 mg/dL D mg/dL (74-106) Calcium 7.7 mg/dL L mg/dL (8.5-10.1) Total Bilirubin 0.4 mg/dL D mg/dL (0.2-1.0) AST 16 U/L D U/L (15-37) ALT 16 U/L U/L (12-78) Alkaline Phosphatase 87 U/L U/L (45-117) Creatine Kinase 76 IU/L IU/L (26-192) Troponin I < 0.02 ng/ml ng/ml (0.00-0.05) Total Protein 4.7 g/dl L g/dl (6.4-8.2) Albumin 2.0 g/dl L g/dl (3.4-5.0) Urine Color Urine Appearance Urine pH Ur Specific [place] Urine Protein Urine Glucose (UA) Urine Ketones Urine Blood Urine Nitrite Urine Bilirubin Urine Urobilinogen Ur Leukocyte Esterase Urine Bacteria Hyaline Casts Urine Mucus 01/29/17 01/30/17 21:24 05:57 WBC RBC Hgb Hct MCV MCH MCHC RDW Plt Count MPV Total Counted Neutrophils % Neutrophils % (Manual) Lymphocytes % Lymphocytes % (Manual) Monocytes % Monocytes % (Manual) Eosinophils % Eosinophils % (Manual) Basophils % Platelet Estimate PT with INR INR PTT (Actin FS) Sodium Potassium Chloride Carbon Dioxide Anion Gap BUN Creatinine Creat Clearance w eGFR POC Glucometer 152 UNITS UNITS 123 UNITS UNITS (80-120) (80-120) Random Glucose Calcium Total Bilirubin AST ALT Alkaline Phosphatase Creatine Kinase Troponin I Total Protein Albumin Urine Color Urine Appearance Urine pH Ur Specific [place] Urine Protein Urine Glucose (UA) Urine Ketones Urine Blood Urine Nitrite Urine Bilirubin Urine Urobilinogen Ur Leukocyte Esterase Urine Bacteria Hyaline Casts Urine Mucus d/w cardiology Assessment slip, weakness mild UTI chronic knee infection chest pain h/o CAD HTN NIDDM Morbid obesity osteoarthritis PLAN iv abx culture wound blood/urine culture pending ID/cardiology eval requested ECHO physical therapy d/w cardiology CBC, BMP 01/29/17 05:00 01/29/17 05:00 Vital Signs Period Temp Pulse Resp BP Sys/Gottlieb Pulse Ox Last 24 Hr 97.2 F-98.4 F 66-80 18-20 126-140/53-88 94-96
[2017-01-31] MEDS: ATORVASTATIN CA 20 MG TABLET (FP) PO SCH (21:20)
[2017-01-31] MEDS: AMMONIUM LACTATE 12% LOTION 225 GM BOTTLE TP PRN (21:22)
[2017-02-01] MEDS ORDERED: PT OWN MED DRAWER 7, Y5N ONE ×2 (01:08→08:17)
[2017-02-01] MEDS: PIPERACILLIN/TAZOB 4.5 GM 4.5 GM in DEXTROSE 5%-WATER - 100 ML IVPB SCH ×3 (02:30→17:51)
[2017-02-01] MEDS: VANCOMYCIN 1,000 MG in DEXTROSE 5%-WATER - 250 ML IVPB SCH ×2 (03:34→14:42)
[2017-02-01] MEDS: INSULIN SLIDING SCALE (NOVOLOG) 1 VIAL SQ SCH ×4 (06:09→23:18)
[2017-02-01] MEDS: LEVOTHYROXINE NA 25 MCG TABLET (FP) PO SCH (06:37)
[2017-02-01] MEDS: morphine SULFATE IMMEDIATE RELEASE 30 MG TAB PO PRN ×3 (06:38→23:24)
[2017-02-01] MEDS: morphine SO4 SUSTAINED ACTING 30 MG TABLET.SA PO SCH ×2 (08:21→23:17)
[2017-02-01] MEDS: ALPRAZolam 0.25 MG TABLET PO PRN (08:22)
[2017-02-01] MEDS: CLOPIDOGREL BISULFATE 75 MG TABLET (FP) PO SCH (10:08)
[2017-02-01] MEDS: LOSARTAN POTASSIUM 50 MG TABLET (FP) PO SCH (10:08)
[2017-02-01] MEDS: HYDROCHLOROTHIAZIDE 25 MG TABLET (FP) PO SCH (10:08)
[2017-02-01] MEDS: ENOXAPARIN NA (PORCINE) 40 MG/0.4 ML DISP.SYRIN SQ SCH (10:08)
[2017-02-01] MEDS: ASPIRIN 81 MG CHEWABLE TABLETS PO SCH (10:08)
[2017-02-01] MEDS: GABAPENTIN 300 MG CAPSULE (FP) PO SCH ×2 (10:10→23:17)
[2017-02-01] MEDS: NYSTATIN POWDER 100,000 UNITS/GM - 15 GM TOPICAL POWDER TP SCH ×2 (10:12→23:18)
--- NOTE | 2017-02-01 13:01 | PN ---
Progress Note, Physician History of Present Illness: fidel is a [71-year-old morbidly obese female with history of erb's paralysis, right knee replacement , IDDM, Wound to RLQ currently in wound care, BIBA, patient was at home, went to get up in the middle of the night and was unable to get back into bed " kept sliding off the side, but never fell to the floor. " Patient was calling her son but he did not some to help her until 1:30 pm. Patient was attempting to get back into bed for several hours but could not " get good footing" patient refused transfer to hospital by EMS initially they left then she attempted to stand again, started to become dizzy and could not stand safely on her legs so she called EMS again and was transferred to ER. Patient denies falling, no LOC, no SOB, has chest pain upon arrival to ER. Started on new insulin, name unknown, she "uses it once a week. " - Current Medication List Current Medications: Active Medications Alprazolam (Xanax -) 0.5 mg PO Q12H PRN PRN Reason: ANXIETY/AGITATION Last Admin: 02/01/17 08:22 Dose: 0.5 mg Aspirin (Asa -) 81 mg PO DAILY [facility] Last Admin: 02/01/17 10:08 Dose: 81 mg Atorvastatin Calcium (Lipitor -) 20 mg PO HS [facility] Last Admin: 01/31/17 21:20 Dose: 20 mg Clopidogrel Bisulfate (Plavix -) 75 mg PO DAILY [facility] Last Admin: 02/01/17 10:08 Dose: 75 mg Enoxaparin Sodium (Lovenox -) 40 mg SQ DAILY [facility] Last Admin: 02/01/17 10:08 Dose: 40 mg Gabapentin (Neurontin -) 300 mg PO BID [facility] Last Admin: 02/01/17 10:10 Dose: 300 mg Hydrochlorothiazide (Hctz -) 25 mg PO DAILY [facility] Last Admin: 02/01/17 10:08 Dose: 25 mg Vancomycin HCl 1,000 mg/ (Dextrose) 250 mls @ 166.667 mls/hr IVPB Q12H [facility] Last Admin: 02/01/17 03:34 Dose: 166.667 mls/hr Piperacillin Sod/Tazobactam (Sod 4.5 gm/ Dextrose) 100 mls @ 200 mls/hr IVPB Q8H-IV [facility] PRN Reason: Protocol Last Admin: 02/01/17 10:10 Dose: 200 mls/hr Insulin Aspart (Novolog Vial Sliding Scale -) 1 vial SQ ACHS [facility] PRN Reason: Protocol Last Admin: 02/01/17 12:35 Dose: Not Given Lactic Acid (Lac-Hydrin 12) 1 applic TP BID PRN PRN Reason: DRY SKIN Last Admin: 01/31/17 21:22 Dose: 1 applic Levothyroxine Sodium (Synthroid -) 25 mcg PO DAILY@0700 [facility] Last Admin: 02/01/17 06:37 Dose: 25 mcg Losartan Potassium (Cozaar -) 100 mg PO DAILY [facility] Last Admin: 02/01/17 10:08 Dose: 100 mg Morphine Sulfate (Ms Contin -) 60 mg PO Q12H [facility] Last Admin: 02/01/17 08:21 Dose: 60 mg Morphine Sulfate (Msir -) 30 mg PO Q4H PRN PRN Reason: PAIN LEVEL 6-10 Last Admin: 02/01/17 06:38 Dose: 30 mg Non-Formulary Medication (Dulaglutide [Trulicity]) 1.5 mg SQ [place]@1000 [facility] Last Admin: 01/31/17 09:19 Dose: 1.5 mg Nystatin (Nystop Powder -) 1 applic TP BID [facility] Last Admin: 02/01/17 10:12 Dose: 1 applic - Objective Vital Signs: Vital Signs Temperature 97.8 F 02/01/17 07:53 Pulse Rate 63 02/01/17 07:53 Respiratory Rate 20 02/01/17 07:54 Blood Pressure 146/72 02/01/17 07:53 O2 Sat by Pulse Oximetry (%) 95 02/01/17 07:54 Eyes: Yes: WNL, Conjunctiva Clear, EOM Intact HENT: Yes: WNL, Atraumatic, Normocephalic Neck: Yes: WNL, Supple, Trachea Midline Cardiovascular: Yes: WNL, Regular Rate and Rhythm Respiratory: Yes: WNL, Regular, CTA Bilaterally Gastrointestinal: Yes: WNL, Normal Bowel Sounds Genitourinary: Yes: WNL Musculoskeletal: Yes: WNL Extremities: Yes: WNL, Erythema Edema: Yes Edema: LLE: 3+, RLE: 3+ Integumentary: Yes: WNL Neurological: Yes: WNL, Alert, Oriented ...Motor Strength: WNL Psychiatric: Yes: WNL Labs: CBC, BMP 01/29/17 05:00 01/29/17 05:00 INR, PTT INR 1.11 (0.82-1.09) 01/28/17 04:45 Laboratory Tests 01/28/17 01/28/17 01/28/17 04:45 04:45 04:45 WBC 12.3 H RBC 4.40 Hgb 11.1 Hct 34.5 MCV 78.5 L MCH 25.2 L MCHC 32.1 RDW 17.8 H Plt Count 197 MPV 8.8 Total Counted 100 Neutrophils % No Result Required. Neutrophils % (Manual) 93.0 H* Lymphocytes % No Result Required. Lymphocytes % (Manual) 2.0 L Monocytes % Monocytes % (Manual) 4 Eosinophils % Eosinophils % (Manual) 1.0 Basophils % Platelet Estimate Adequate ESR PT with INR 12.50 H INR 1.11 PTT (Actin FS) 25.8 L Sodium 139 Potassium 5.2 H D Chloride 105 Carbon Dioxide 29 Anion Gap 5 L BUN 16 D Creatinine 1.2 H D Creat Clearance w eGFR 44.41 POC Glucometer Random Glucose 124 H D Calcium 8.1 L Total Bilirubin 0.6 AST 24 D ALT 18 Alkaline Phosphatase 98 Creatine Kinase 86 Troponin I < 0.02 C-Reactive Protein Total Protein 5.3 L Albumin 2.3 L D Urine Color Urine Appearance Urine pH Ur Specific [place] Urine Protein Urine Glucose (UA) Urine Ketones Urine Blood Urine Nitrite Urine Bilirubin Urine Urobilinogen Ur Leukocyte Esterase Urine Bacteria Hyaline Casts Urine Mucus 01/28/17 01/28/17 01/28/17 17:00 19:50 21:21 WBC RBC Hgb Hct MCV MCH MCHC RDW Plt Count MPV Total Counted Neutrophils % Neutrophils % (Manual) Lymphocytes % Lymphocytes % (Manual) Monocytes % Monocytes % (Manual) Eosinophils % Eosinophils % (Manual) Basophils % Platelet Estimate ESR PT with INR INR PTT (Actin FS) Sodium Potassium Chloride Carbon Dioxide Anion Gap BUN Creatinine Creat Clearance w eGFR POC Glucometer 165 Random Glucose Calcium Total Bilirubin AST ALT Alkaline Phosphatase Creatine Kinase 93 Troponin I < 0.02 C-Reactive Protein Total Protein Albumin Urine Color Yellow Urine Appearance Clear Urine pH 5.0 Ur Specific [place] 1.011 Urine Protein 1+ H Urine Glucose (UA) Negative Urine Ketones Negative Urine Blood 1+ H Urine Nitrite Positive Urine Bilirubin Negative Urine Urobilinogen Negative Ur Leukocyte Esterase Negative Urine Bacteria Moderate Hyaline Casts 1 Urine Mucus Rare 01/29/17 01/29/17 01/29/17 05:00 05:00 16:49 WBC 9.6 RBC 4.01 Hgb 10.1 L Hct 31.7 L MCV 79.1 L MCH 25.1 L MCHC 31.7 L RDW 18.3 H Plt Count 205 MPV 8.7 Total Counted Neutrophils % 77.2 Neutrophils % (Manual) Lymphocytes % 12.3 D Lymphocytes % (Manual) Monocytes % 5.9 Monocytes % (Manual) Eosinophils % 4.1 D Eosinophils % (Manual) Basophils % 0.5 Platelet Estimate ESR PT with INR INR PTT (Actin FS) Sodium 139 Potassium 5.1 Chloride 103 Carbon Dioxide 30 Anion Gap 6 L BUN 17 Creatinine 1.1 H Creat Clearance w eGFR 49.10 POC Glucometer 162 Random Glucose 74 D Calcium 7.7 L Total Bilirubin 0.4 D AST 16 D ALT 16 Alkaline Phosphatase 87 Creatine Kinase 76 Troponin I < 0.02 C-Reactive Protein Total Protein 4.7 L Albumin 2.0 L Urine Color Urine Appearance Urine pH Ur Specific [place] Urine Protein Urine Glucose (UA) Urine Ketones Urine Blood Urine Nitrite Urine Bilirubin Urine Urobilinogen Ur Leukocyte Esterase Urine Bacteria Hyaline Casts Urine Mucus 01/29/17 01/30/17 01/30/17 21:24 05:25 05:25 WBC RBC Hgb Hct MCV MCH MCHC RDW Plt Count MPV Total Counted Neutrophils % Neutrophils % (Manual) Lymphocytes % Lymphocytes % (Manual) Monocytes % Monocytes % (Manual) Eosinophils % Eosinophils % (Manual) Basophils % Platelet Estimate ESR 45 H PT with INR INR PTT (Actin FS) Sodium Potassium Chloride Carbon Dioxide Anion Gap BUN Creatinine Creat Clearance w eGFR POC Glucometer 152 Random Glucose Calcium Total Bilirubin AST ALT Alkaline Phosphatase Creatine Kinase Troponin I C-Reactive Protein 6.1 H D Total Protein Albumin Urine Color Urine Appearance Urine pH Ur Specific [place] Urine Protein Urine Glucose (UA) Urine Ketones Urine Blood Urine Nitrite Urine Bilirubin Urine Urobilinogen Ur Leukocyte Esterase Urine Bacteria Hyaline Casts Urine Mucus 01/30/17 01/30/17 01/30/17 05:57 16:21 22:49 WBC RBC Hgb Hct MCV MCH MCHC RDW Plt Count MPV Total Counted Neutrophils % Neutrophils % (Manual) Lymphocytes % Lymphocytes % (Manual) Monocytes % Monocytes % (Manual) Eosinophils % Eosinophils % (Manual) Basophils % Platelet Estimate ESR PT with INR INR PTT (Actin FS) Sodium Potassium Chloride Carbon Dioxide Anion Gap BUN Creatinine Creat Clearance w eGFR POC Glucometer 123 214 138 Random Glucose Calcium Total Bilirubin AST ALT Alkaline Phosphatase Creatine Kinase Troponin I C-Reactive Protein Total Protein Albumin Urine Color Urine Appearance Urine pH Ur Specific [place] Urine Protein Urine Glucose (UA) Urine Ketones Urine Blood Urine Nitrite Urine Bilirubin Urine Urobilinogen Ur Leukocyte Esterase Urine Bacteria Hyaline Casts Urine Mucus 01/31/17 01/31/17 01/31/17 00:05 06:04 11:33 WBC RBC Hgb Hct MCV MCH MCHC RDW Plt Count MPV Total Counted Neutrophils % Neutrophils % (Manual) Lymphocytes % Lymphocytes % (Manual) Monocytes % Monocytes % (Manual) Eosinophils % Eosinophils % (Manual) Basophils % Platelet Estimate ESR PT with INR INR PTT (Actin FS) Sodium Potassium Chloride Carbon Dioxide Anion Gap BUN Creatinine Creat Clearance w eGFR POC Glucometer 160 105 > 600 Random Glucose Calcium Total Bilirubin AST ALT Alkaline Phosphatase Creatine Kinase Troponin I C-Reactive Protein Total Protein Albumin Urine Color Urine Appearance Urine pH Ur Specific [place] Urine Protein Urine Glucose (UA) Urine Ketones Urine Blood Urine Nitrite Urine Bilirubin Urine Urobilinogen Ur Leukocyte Esterase Urine Bacteria Hyaline Casts Urine Mucus 01/31/17 01/31/17 01/31/17 11:38 16:56 21:24 WBC RBC Hgb Hct MCV MCH MCHC RDW Plt Count MPV Total Counted Neutrophils % Neutrophils % (Manual) Lymphocytes % Lymphocytes % (Manual) Monocytes % Monocytes % (Manual) Eosinophils % Eosinophils % (Manual) Basophils % Platelet Estimate ESR PT with INR INR PTT (Actin FS) Sodium Potassium Chloride Carbon Dioxide Anion Gap BUN Creatinine Creat Clearance w eGFR POC Glucometer 97 135 155 Random Glucose Calcium Total Bilirubin AST ALT Alkaline Phosphatase Creatine Kinase Troponin I C-Reactive Protein Total Protein Albumin Urine Color Urine Appearance Urine pH Ur Specific [place] Urine Protein Urine Glucose (UA) Urine Ketones Urine Blood Urine Nitrite Urine Bilirubin Urine Urobilinogen Ur Leukocyte Esterase Urine Bacteria Hyaline Casts Urine Mucus 02/01/17 02/01/17 05:49 12:11 WBC RBC Hgb Hct MCV MCH MCHC RDW Plt Count MPV Total Counted Neutrophils % Neutrophils % (Manual) Lymphocytes % Lymphocytes % (Manual) Monocytes % Monocytes % (Manual) Eosinophils % Eosinophils % (Manual) Basophils % Platelet Estimate ESR PT with INR INR PTT (Actin FS) Sodium Potassium Chloride Carbon Dioxide Anion Gap BUN Creatinine Creat Clearance w eGFR POC Glucometer 96 122 Random Glucose Calcium Total Bilirubin AST ALT Alkaline Phosphatase Creatine Kinase Troponin I C-Reactive Protein Total Protein Albumin Urine Color Urine Appearance Urine pH Ur Specific [place] Urine Protein Urine Glucose (UA) Urine Ketones Urine Blood Urine Nitrite Urine Bilirubin Urine Urobilinogen Ur Leukocyte Esterase Urine Bacteria Hyaline Casts Urine Mucus Assessment/Plan IMP: Mechanical Fall, weakness LE Leukocytosis CAD w/ remote h/o PCI Chest pain: typical and atypical features x 1 one week DM CHF REC: Abx as per ID Plan for Persantine MIBI prior to d/c check bnp to r/o chf
--- NOTE | 2017-02-01 16:28 | PN ---
Progress Note, Physician History of Present Illness: No c/o leg pain Afebrile WBC improved Tolerating antibiotics - Current Medication List Current Medications: Active Medications Alprazolam (Xanax -) 0.5 mg PO Q12H PRN PRN Reason: ANXIETY/AGITATION Last Admin: 02/01/17 08:22 Dose: 0.5 mg Aspirin (Asa -) 81 mg PO DAILY [facility] Last Admin: 02/01/17 10:08 Dose: 81 mg Atorvastatin Calcium (Lipitor -) 20 mg PO HS [facility] Last Admin: 01/31/17 21:20 Dose: 20 mg Clopidogrel Bisulfate (Plavix -) 75 mg PO DAILY [facility] Last Admin: 02/01/17 10:08 Dose: 75 mg Enoxaparin Sodium (Lovenox -) 40 mg SQ DAILY [facility] Last Admin: 02/01/17 10:08 Dose: 40 mg Gabapentin (Neurontin -) 300 mg PO BID [facility] Last Admin: 02/01/17 10:10 Dose: 300 mg Hydrochlorothiazide (Hctz -) 25 mg PO DAILY [facility] Last Admin: 02/01/17 10:08 Dose: 25 mg Vancomycin HCl 1,000 mg/ (Dextrose) 250 mls @ 166.667 mls/hr IVPB Q12H [facility] Last Admin: 02/01/17 14:42 Dose: 166.667 mls/hr Piperacillin Sod/Tazobactam (Sod 4.5 gm/ Dextrose) 100 mls @ 200 mls/hr IVPB Q8H-IV [facility] PRN Reason: Protocol Last Admin: 02/01/17 10:10 Dose: 200 mls/hr Insulin Aspart (Novolog Vial Sliding Scale -) 1 vial SQ ACHS [facility] PRN Reason: Protocol Last Admin: 02/01/17 12:35 Dose: Not Given Lactic Acid (Lac-Hydrin 12) 1 applic TP BID PRN PRN Reason: DRY SKIN Last Admin: 01/31/17 21:22 Dose: 1 applic Levothyroxine Sodium (Synthroid -) 25 mcg PO DAILY@0700 [facility] Last Admin: 02/01/17 06:37 Dose: 25 mcg Losartan Potassium (Cozaar -) 100 mg PO DAILY [facility] Last Admin: 02/01/17 10:08 Dose: 100 mg Morphine Sulfate (Ms Contin -) 60 mg PO Q12H [facility] Last Admin: 02/01/17 08:21 Dose: 60 mg Morphine Sulfate (Msir -) 30 mg PO Q4H PRN PRN Reason: PAIN LEVEL 6-10 Last Admin: 02/01/17 13:36 Dose: 30 mg Non-Formulary Medication (Dulaglutide [Trulicity]) 1.5 mg SQ [place]@1000 [facility] Last Admin: 01/31/17 09:19 Dose: 1.5 mg Nystatin (Nystop Powder -) 1 applic TP BID [facility] Last Admin: 02/01/17 10:12 Dose: 1 applic - Objective Vital Signs: Vital Signs Temperature 98.3 F 02/01/17 15:36 Pulse Rate 63 02/01/17 15:36 Respiratory Rate 20 02/01/17 15:36 Blood Pressure 140/64 02/01/17 15:36 O2 Sat by Pulse Oximetry (%) 95 02/01/17 07:54 Constitutional: Yes: No Distress, Obese Cardiovascular: Yes: Regular Rate and Rhythm, S1, S2 Respiratory: Yes: CTA Bilaterally Gastrointestinal: Yes: Normal Bowel Sounds, Soft, Abdomen, Obese Extremities: Yes: Other (Improving erythema LE bilaterally + serous drainage from R knee wound) Edema: Yes Labs: CBC, BMP 01/29/17 05:00 01/29/17 05:00 INR, PTT INR 1.11 (0.82-1.09) 01/28/17 04:45 Assessment/Plan Bilateral LE cellulitis improved Chronically infected R TKR Leukocytosis-improved Diabetes mellitus Morbid obesity Continue empiric vancomycin/ zosyn
--- NOTE | 2017-02-01 17:29 | PN ---
Progress Note (short form) - Note Progress Note: slipped out of her bed yesterday am, could not goet up, help arrived 12 hours later, still could not ambulate afterwards, so came in by ems. has been feeling weak with intermittent chest pains for past 2-3 weeks. attending wound care and ID with dr Jennings for right below knee chronic wound, recently oozing again. h/o infected right knee prosthesis-hardware removal-abx.sponge for months-again total knee replacement with chronic opening. last year underwent arthroscopic cleaning and debridement of right knee, ortho did not recommend hardware removal. now on oral abx-unsure what CBC, BMP 01/29/17 05:00 01/29/17 05:00 Vital Signs Period Temp Pulse Resp BP Sys/Gottlieb Pulse Ox Last 24 Hr 97.8 F-98.7 F 63-76 20-20 140-151/64-78 95-95 S1 S2 RRR lungs cta edema bilateral lower ext, with erythema, minimla tensderness chronic right below knee fistula, no discharge today IMP slip, weakness mild UTI chronic knee infection chest pain h/o CAD HTN NIDDM Morbid obesity osteoarthritis PLAN iv abx ID/cardiology eval appreciated could not do stress test today due to large body habitus-did not fit machine will request dobutamine echo instead physical therapy
[2017-02-01] MEDS ORDERED: INSULIN (NOVOLOG) ASPART 100 UNITS/ML 10ML VIAL ONE (23:14)
[2017-02-01] MEDS: ATORVASTATIN CA 20 MG TABLET (FP) PO SCH (23:17)
--- NOTE | 2017-02-01 23:19 | EKG ---
Test Reason : Blood Pressure : / mmHG Vent. Rate : 092 BPM Atrial Rate : 092 BPM P-R Int : 000 ms QRS Dur : 064 ms QT Int : 328 ms P-R-T Axes : 000 056 036 degrees QTc Int : 405 ms UNDETERMINED RHYTHM PROBABLE SINUS WITH SINUS ARRHYTHMIA LOW VOLTAGE QRS CANNOT RULE OUT ANTEROSEPTAL INFARCT , AGE UNDETERMINED POOR R WAVE PROGRESSION ABNORMAL ECG WHEN COMPARED WITH ECG OF 28-OCT-2014 06:21, VENT. RATE HAS INCREASED Confirmed by MICHAEL THOMAS MD ([id number]) on 02/01/2017 11:19:23 PM Referred By: Confirmed By:MICHAEL THOMAS MD
[2017-02-02] MEDS: PIPERACILLIN/TAZOB 4.5 GM 4.5 GM in DEXTROSE 5%-WATER - 100 ML IVPB SCH ×3 (03:29→17:01)
[2017-02-02] MEDS ORDERED: PT OWN MED DRAWER 7, Y5N ONE (04:22)
[2017-02-02] MEDS: VANCOMYCIN 1,000 MG in DEXTROSE 5%-WATER - 250 ML IVPB SCH ×2 (04:29→14:12)
[2017-02-02] MEDS: INSULIN SLIDING SCALE (NOVOLOG) 1 VIAL SQ SCH ×4 (06:53→22:43)
[2017-02-02] MEDS: morphine SULFATE IMMEDIATE RELEASE 30 MG TAB PO PRN ×3 (06:58→19:54)
[2017-02-02] MEDS: LEVOTHYROXINE NA 25 MCG TABLET (FP) PO SCH (06:58)
[2017-02-02 07:19] LABS: ALBUMIN 2.3 g/dl (3.4-5.0); ANION GAP 7 (8-16); CALCIUM 8.5 mg/dL (8.5-10.1); CO2 32 mmol/L (21-32); GLUCOSE,RANDOM 94 mg/dL (74-106)
[2017-02-02 07:25] LABS: ALK PHOS 80 U/L (45-117); BILIRUBIN,TOTAL 0.5 mg/dL (0.2-1.0); CREATININE 1.4 mg/dL (0.55-1.02); SGOT/AST 16 U/L (15-37); SGPT/ALT 16 U/L (12-78); TOT PROT 5.3 g/dl (6.4-8.2)
[2017-02-02 07:27] LABS: BASOPHIL 0.7 % (0-2.0); EOSINOPHIL 4.8 % (0-4.5); MCH 25.6 pg (25.7-33.7); MCHC 32.3 g/dl (32.0-36.0); MEAN CELL VOLUME 79.4 fl (80-96); MEAN PLT VOLUME 8.9 fl (7.5-11.1); NEUTROPHILS 80.9 % (42.8-82.8); PLATELET COUNT 181 K/MM3 (134-434); RDW 18.4 % (11.6-15.6); WHITE BLOOD COUNT 7.8 K/mm3 (4.0-10.0)
[2017-02-02] MEDS: morphine SO4 SUSTAINED ACTING 30 MG TABLET.SA PO SCH ×2 (08:12→19:54)
[2017-02-02] MEDS: LOSARTAN POTASSIUM 50 MG TABLET (FP) PO SCH (10:10)
[2017-02-02] MEDS: CLOPIDOGREL BISULFATE 75 MG TABLET (FP) PO SCH (10:12)
[2017-02-02] MEDS: NYSTATIN POWDER 100,000 UNITS/GM - 15 GM TOPICAL POWDER TP SCH ×2 (10:12→22:44)
[2017-02-02] MEDS: ASPIRIN 81 MG CHEWABLE TABLETS PO SCH (10:12)
[2017-02-02] MEDS: HYDROCHLOROTHIAZIDE 25 MG TABLET (FP) PO SCH (10:12)
[2017-02-02] MEDS: GABAPENTIN 300 MG CAPSULE (FP) PO SCH ×2 (10:12→22:44)
[2017-02-02] MEDS: ENOXAPARIN NA (PORCINE) 40 MG/0.4 ML DISP.SYRIN SQ SCH (10:12)
--- NOTE | 2017-02-02 10:21 | PN ---
Progress Note (short form) - Note Progress Note: no new complaints awaiting stress echo CBC, BMP 02/02/17 06:30 02/02/17 06:30 Vital Signs Period Temp Pulse Resp BP Sys/Gottlieb Pulse Ox Last 24 Hr 98.0 F-99.5 F 62-74 20-20 131-151/60-76 96 IMP slip, weakness mild UTI chronic knee infection chest pain h/o CAD HTN NIDDM Morbid obesity osteoarthritis PLAN iv abx ID/cardiology eval appreciated could not do stress test due to large body habitus-did not fit machine awaiting dobutamine echo instead physical therapy dc planning likely to SNF
--- NOTE | 2017-02-02 12:13 | PN ---
Progress Note, Physician Chief Complaint: Pt A&Ox3; no chest pain or dyspnea; OOB in chair. History of Present Illness: Patient is a [71-year-old morbidly obese white female with history of erb's paralysis, right knee replacement , IDDM, Wound to RLQ currently in wound care, BIBA, patient was at home, went to get up in the middle of the night and was unable to get back into bed " kept sliding off the side, but never fell to the floor. " Patient was calling her son but he did not some to help her until 1: 30 pm. Patient was attempting to get back into bed for several hours but could not "get good footing" patient refused transfer to hospital by EMS initially they left then she attempted to stand again, started to become dizzy and could not stand safely on her legs so she called EMS again and was transferred to ER. Patient denies falling, no LOC, no SOB, has chest pain upon arrival to ER. Started on new insulin, name unknown, she "uses it once a week. " She admits to [facility] with the chest pain upon arrival. No fever. She reports she is normally able to walk with assistance of a cane - Current Medication List Current Medications: Active Medications Alprazolam (Xanax -) 0.5 mg PO Q12H PRN PRN Reason: ANXIETY/AGITATION Last Admin: 02/01/17 08:22 Dose: 0.5 mg Aspirin (Asa -) 81 mg PO DAILY [facility] Last Admin: 02/02/17 10:12 Dose: 81 mg Atorvastatin Calcium (Lipitor -) 20 mg PO HS [facility] Last Admin: 02/01/17 23:17 Dose: 20 mg Clopidogrel Bisulfate (Plavix -) 75 mg PO DAILY [facility] Last Admin: 02/02/17 10:12 Dose: 75 mg Enoxaparin Sodium (Lovenox -) 40 mg SQ DAILY [facility] Last Admin: 02/02/17 10:12 Dose: 40 mg Gabapentin (Neurontin -) 300 mg PO BID [facility] Last Admin: 02/02/17 10:12 Dose: 300 mg Hydrochlorothiazide (Hctz -) 25 mg PO DAILY [facility] Last Admin: 02/02/17 10:12 Dose: 25 mg Vancomycin HCl 1,000 mg/ (Dextrose) 250 mls @ 166.667 mls/hr IVPB Q12H [facility] Last Admin: 02/02/17 04:29 Dose: 166.667 mls/hr Piperacillin Sod/Tazobactam (Sod 4.5 gm/ Dextrose) 100 mls @ 200 mls/hr IVPB Q8H-IV [facility] PRN Reason: Protocol Last Admin: 02/02/17 10:20 Dose: 200 mls/hr Insulin Aspart (Novolog Vial Sliding Scale -) 1 vial SQ ACHS [facility] PRN Reason: Protocol Last Admin: 02/02/17 11:30 Dose: Not Given Lactic Acid (Lac-Hydrin 12) 1 applic TP BID PRN PRN Reason: DRY SKIN Last Admin: 01/31/17 21:22 Dose: 1 applic Levothyroxine Sodium (Synthroid -) 25 mcg PO DAILY@0700 [facility] Last Admin: 02/02/17 06:58 Dose: 25 mcg Losartan Potassium (Cozaar -) 100 mg PO DAILY [facility] Last Admin: 02/02/17 10:10 Dose: 100 mg Morphine Sulfate (Ms Contin -) 60 mg PO Q12H [facility] Last Admin: 02/02/17 08:12 Dose: 60 mg Morphine Sulfate (Msir -) 30 mg PO Q4H PRN PRN Reason: PAIN LEVEL 6-10 Last Admin: 02/02/17 06:58 Dose: 30 mg Non-Formulary Medication (Dulaglutide [Trulicity]) 1.5 mg SQ [place]@1000 [facility] Last Admin: 01/31/17 09:19 Dose: 1.5 mg Nystatin (Nystop Powder -) 1 applic TP BID [facility] Last Admin: 02/02/17 10:12 Dose: 1 applic - Objective Vital Signs: Vital Signs Temperature 98.2 F 02/02/17 08:14 Pulse Rate 62 02/02/17 08:14 Respiratory Rate 20 02/02/17 08:14 Blood Pressure 151/76 02/02/17 08:14 O2 Sat by Pulse Oximetry (%) 96 02/02/17 09:00 Constitutional: Yes: Anxious Eyes: Yes: WNL HENT: Yes: WNL Neck: Yes: WNL Cardiovascular: Yes: Regular Rate and Rhythm Respiratory: Yes: Regular Gastrointestinal: Yes: Soft, Abdomen, Obese ...Rectal Exam: Yes: Deferred Genitourinary: No: Anuria Breast(s): Yes: WNL Musculoskeletal: Yes: Joint Stiffness, Muscle Weakness Extremities: Yes: Cool, Other (small right arm/contracted hand (congenital deformity)) Edema: No Peripheral Pulses WNL: Yes Neurological: Yes: Alert, Oriented, Weakness Psychiatric: Yes: Alert, Oriented, Other (anxiety/depression) Labs: CBC, BMP 02/02/17 06:30 02/02/17 06:30 INR, PTT INR 1.11 (0.82-1.09) 01/28/17 04:45 Problem List - Problems (1) Hypothyroid Code(s): E03.9 - HYPOTHYROIDISM, UNSPECIFIED (2) Urinary tract infection Code(s): N39.0 - URINARY TRACT INFECTION, SITE NOT SPECIFIED Qualifiers: Urinary tract infection type: site unspecified Hematuria presence: without hematuria Qualified Code(s): N39.0 - Urinary tract infection, site not specified (3) CAD (coronary artery disease) Code(s): I25.10 - ATHSCL HEART DISEASE OF [place] CORONARY ARTERY W/O ANG PCTRS Qualifiers: Coronary Disease-Associated Artery/Lesion type: [place] coronary artery Associated angina: without angina pectoris (4) Cellulitis Code(s): L03.90 - CELLULITIS, UNSPECIFIED Qualifiers: Site of cellulitis of extremity: lower extremity Laterality: right (5) Chronic pain Code(s): G89.29 - OTHER CHRONIC PAIN (6) Diabetes mellitus Code(s): E11.9 - TYPE 2 DIABETES MELLITUS WITHOUT COMPLICATIONS Qualifiers: Diabetes mellitus type: type 2 Diabetes mellitus complication detail: with chronic kidney disease (7) Dyslipidemia Code(s): E78.5 - HYPERLIPIDEMIA, UNSPECIFIED (8) HTN (hypertension) Code(s): I10 - ESSENTIAL (PRIMARY) HYPERTENSION Qualifiers: Hypertension type: essential hypertension Qualified Code(s): I10 - Essential (primary) hypertension (9) Limb deformities, congenital Code(s): 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 ECHO images are suboptimal. She agrees to undergo coronary angiogram. Continue ASA, clopidogrel, statin.ACEI. Will discontinue HCTZ (renal insufficiency)hydrate gently; f/u BUN/Cr, elctyrolytes. F/u TSH (on Synthroid). EKG in am. Code(s): R07.9 - CHEST PAIN, UNSPECIFIED Qualifiers: Chest pain type: other chest pain Qualified Code(s): R07.89 - Other chest pain; R07.8 - Other chest pain
[2017-02-02] MEDS: ALPRAZolam 0.25 MG TABLET PO PRN (14:03)
[2017-02-02] MEDS: ATORVASTATIN CA 20 MG TABLET (FP) PO SCH (22:44)
[2017-02-03] MEDS: PIPERACILLIN/TAZOB 4.5 GM 4.5 GM in DEXTROSE 5%-WATER - 100 ML IVPB SCH ×2 (02:05→09:56)
[2017-02-03] MEDS ORDERED: PT OWN MED DRAWER 7, Y5N ONE (02:50)
[2017-02-03] MEDS: VANCOMYCIN 1,000 MG in DEXTROSE 5%-WATER - 250 ML IVPB SCH (03:03)
[2017-02-03] MEDS: INSULIN SLIDING SCALE (NOVOLOG) 1 VIAL SQ SCH ×2 (06:18→13:14)
[2017-02-03] MEDS: LEVOTHYROXINE NA 25 MCG TABLET (FP) PO SCH (06:19)
[2017-02-03] MEDS: morphine SULFATE IMMEDIATE RELEASE 30 MG TAB PO PRN ×2 (06:30→09:54)
[2017-02-03 06:44] VITALS: PULSE 65
--- NOTE | 2017-02-03 09:22 | PN ---
Progress Note (short form) - Note Progress Note: no new complaints CBC, BMP 02/02/17 06:30 02/02/17 06:30 Vital Signs Period Temp Pulse Resp BP Sys/Gottlieb Pulse Ox Last 24 Hr 98.1 F-99.2 F 63-76 20-20 126-142/56-65 98 S1S2 RRR lungs cta abd soft intertrigo in overlapping breast, abdominal areas bilteral lower ext. cellulitis improving IMP slip, weakness mild UTI chronic knee infection chest pain h/o CAD HTN NIDDM Morbid obesity osteoarthritis PLAN iv abx ID/cardiology eval appreciated could not do stress test due to large body habitus-did not fit machine patient is agreeable for card.cath-awaiting transfer to tertiary care center
[2017-02-03] MEDS: morphine SO4 SUSTAINED ACTING 30 MG TABLET.SA PO SCH (09:55)
[2017-02-03] MEDS: ENOXAPARIN NA (PORCINE) 40 MG/0.4 ML DISP.SYRIN SQ SCH (09:55)
[2017-02-03] MEDS: LOSARTAN POTASSIUM 50 MG TABLET (FP) PO SCH (09:55)
[2017-02-03] MEDS: GABAPENTIN 300 MG CAPSULE (FP) PO SCH (09:56)
[2017-02-03] MEDS: ASPIRIN 81 MG CHEWABLE TABLETS PO SCH (09:56)
[2017-02-03] MEDS: CLOPIDOGREL BISULFATE 75 MG TABLET (FP) PO SCH (09:56)
[2017-02-03] MEDS: NYSTATIN POWDER 100,000 UNITS/GM - 15 GM TOPICAL POWDER TP SCH (09:56)
[2017-02-03 10:02] VITALS: BP 118/96; TEMP 97.6
--- NOTE | 2017-02-03 11:52 | PN ---
Progress Note, Physician History of Present Illness: No c/o leg pain Afebrile WBC improved Tolerating antibiotics - Current Medication List Current Medications: Active Medications Alprazolam (Xanax -) 0.5 mg PO Q12H PRN PRN Reason: ANXIETY/AGITATION Last Admin: 02/02/17 14:03 Dose: 0.5 mg Aspirin (Asa -) 81 mg PO DAILY [facility] Last Admin: 02/03/17 09:56 Dose: 81 mg Atorvastatin Calcium (Lipitor -) 20 mg PO HS [facility] Last Admin: 02/02/17 22:44 Dose: 20 mg Clopidogrel Bisulfate (Plavix -) 75 mg PO DAILY [facility] Last Admin: 02/03/17 09:56 Dose: 75 mg Enoxaparin Sodium (Lovenox -) 40 mg SQ DAILY [facility] Last Admin: 02/03/17 09:55 Dose: 40 mg Gabapentin (Neurontin -) 300 mg PO BID [facility] Last Admin: 02/03/17 09:56 Dose: 300 mg Piperacillin Sod/Tazobactam (Sod 4.5 gm/ Dextrose) 100 mls @ 200 mls/hr IVPB Q8H-IV [facility] PRN Reason: Protocol Last Admin: 02/03/17 09:56 Dose: 200 mls/hr Insulin Aspart (Novolog Vial Sliding Scale -) 1 vial SQ ACHS [facility] PRN Reason: Protocol Last Admin: 02/03/17 06:18 Dose: Not Given Lactic Acid (Lac-Hydrin 12) 1 applic TP BID PRN PRN Reason: DRY SKIN Last Admin: 01/31/17 21:22 Dose: 1 applic Levothyroxine Sodium (Synthroid -) 25 mcg PO DAILY@0700 [facility] Last Admin: 02/03/17 06:19 Dose: 25 mcg Losartan Potassium (Cozaar -) 100 mg PO DAILY [facility] Last Admin: 02/03/17 09:55 Dose: 100 mg Morphine Sulfate (Ms Contin -) 60 mg PO Q12H [facility] Last Admin: 02/03/17 09:55 Dose: 60 mg Morphine Sulfate (Msir -) 30 mg PO Q4H PRN PRN Reason: PAIN LEVEL 6-10 Last Admin: 02/03/17 09:54 Dose: 30 mg Non-Formulary Medication (Dulaglutide [Trulicity]) 1.5 mg SQ [place]@1000 [facility] Last Admin: 01/31/17 09:19 Dose: 1.5 mg Nystatin (Nystop Powder -) 1 applic TP BID [facility] Last Admin: 02/03/17 09:56 Dose: 1 applic - Objective Vital Signs: Vital Signs Temperature 97.6 F 02/03/17 10:00 Pulse Rate 65 02/03/17 10:00 Respiratory Rate 20 02/03/17 10:00 Blood Pressure 118/96 02/03/17 10:00 O2 Sat by Pulse Oximetry (%) 98 02/02/17 21:00 Constitutional: Yes: No Distress, Obese Eyes: Yes: Conjunctiva Clear Cardiovascular: Yes: Regular Rate and Rhythm, S1, S2 Respiratory: Yes: Diminished Gastrointestinal: Yes: Normal Bowel Sounds, Soft, Abdomen, Obese. No: Tenderness Extremities: Yes: Other Edema: LLE: 3+, RLE: 3+ Integumentary: Yes: Other (decreasing erythema LE bilaterally) Labs: CBC, BMP 02/02/17 06:30 02/02/17 06:30 INR, PTT INR 1.11 (0.82-1.09) 01/28/17 04:45 Assessment/Plan Bilateral LE cellulitis improved Chronically infected R TKR Leukocytosis-improved Diabetes mellitus Morbid obesity Continue empiric zosyn D/C vancomycin ( elevated trough)
--- NOTE | 2017-02-03 11:58 | EKG ---
Test Reason : Blood Pressure : / mmHG Vent. Rate : 053 BPM Atrial Rate : 053 BPM P-R Int : 210 ms QRS Dur : 082 ms QT Int : 416 ms P-R-T Axes : 033 046 041 degrees QTc Int : 390 ms SINUS BRADYCARDIA WITH 1ST DEGREE A-V BLOCK WITH PREMATURE ATRIAL COMPLEXES LOW VOLTAGE QRS BORDERLINE ECG WHEN COMPARED WITH ECG OF 28-JAN-2017 16:34, PREVIOUS ECG HAS UNDETERMINED RHYTHM, NEEDS REVIEW MINIMAL CRITERIA FOR ANTEROSEPTAL INFARCT ARE NO LONGER PRESENT Confirmed by DARIELA ALEXIS MD ([id number]) on 02/03/2017 11:58:27 AM Referred By: Kathy HEAD Confirmed By:DARIELA ALEXIS MD
--- NOTE | 2017-02-03 13:41 | PN ---
Progress Note, Physician History of Present Illness: fidel is a [71-year-old morbidly obese female with history of erb's paralysis, right knee replacement , IDDM, Wound to RLQ currently in wound care, BIBA, patient was at home, went to get up in the middle of the night and was unable to get back into bed " kept sliding off the side, but never fell to the floor. " Patient was calling her son but he did not some to help her until 1:30 pm. Patient was attempting to get back into bed for several hours but could not " get good footing" patient refused transfer to hospital by EMS initially they left then she attempted to stand again, started to become dizzy and could not stand safely on her legs so she called EMS again and was transferred to ER. Patient denies falling, no LOC, no SOB, has chest pain upon arrival to ER. Started on new insulin, name unknown, she "uses it once a week. " - Objective Vital Signs: Vital Signs Temperature 97.6 F 02/03/17 10:00 Pulse Rate 65 02/03/17 10:00 Respiratory Rate 20 02/03/17 10:00 Blood Pressure 118/96 02/03/17 10:00 O2 Sat by Pulse Oximetry (%) 98 02/02/17 21:00 Eyes: Yes: WNL, Conjunctiva Clear, EOM Intact HENT: Yes: WNL, Atraumatic, Normocephalic Neck: Yes: WNL, Supple, Trachea Midline Cardiovascular: Yes: WNL, Regular Rate and Rhythm Respiratory: Yes: WNL, Regular, CTA Bilaterally Gastrointestinal: Yes: WNL, Normal Bowel Sounds Genitourinary: Yes: WNL Musculoskeletal: Yes: WNL Extremities: Yes: WNL Edema: Yes Integumentary: Yes: WNL Neurological: Yes: WNL, Alert, Oriented ...Motor Strength: WNL Psychiatric: Yes: WNL Labs: CBC, BMP 02/02/17 06:30 02/02/17 06:30 INR, PTT INR 1.11 (0.82-1.09) 01/28/17 04:45 Assessment/Plan - Problems (1) Hypothyroid Code(s): E03.9 - HYPOTHYROIDISM, UNSPECIFIED (2) Urinary tract infection Code(s): N39.0 - URINARY TRACT INFECTION, SITE NOT SPECIFIED Qualifiers: Urinary tract infection type: site unspecified Hematuria presence: without hematuria Qualified Code(s): N39.0 - Urinary tract infection, site not specified (3) CAD (coronary artery disease) Code(s): I25.10 - ATHSCL HEART DISEASE OF [place] CORONARY ARTERY W/O ANG PCTRS Qualifiers: Coronary Disease-Associated Artery/Lesion type: [place] coronary artery Associated angina: without angina pectoris (4) Cellulitis Code(s): L03.90 - CELLULITIS, UNSPECIFIED Qualifiers: Site of cellulitis of extremity: lower extremity Laterality: right (5) Chronic pain Code(s): G89.29 - OTHER CHRONIC PAIN (6) Diabetes mellitus Code(s): E11.9 - TYPE 2 DIABETES MELLITUS WITHOUT COMPLICATIONS Qualifiers: Diabetes mellitus type: type 2 Diabetes mellitus complication detail: with chronic kidney disease (7) Dyslipidemia Code(s): E78.5 - HYPERLIPIDEMIA, UNSPECIFIED (8) HTN (hypertension) Code(s): I10 - ESSENTIAL (PRIMARY) HYPERTENSION Qualifiers: Hypertension type: essential hypertension Qualified Code(s): I10 - Essential (primary) hypertension (9) Limb deformities, congenital Code(s): 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 ECHO images are suboptimal. She agrees to undergo coronary angiogram. Continue ASA, clopidogrel, statin.ACEI. Will discontinue HCTZ (renal insufficiency)hydrate gently; f/u BUN/Cr, elctyrolytes. F/u TSH (on Synthroid). EKG in am. Code(s): R07.9 - CHEST PAIN, UNSPECIFIED Qualifiers: Chest pain type: other chest pain Qualified Code(s): R07.89 - Other chest pain; R07.8 - Other chest pain
--- NOTE | 2017-02-03 15:14 | DS ---
Physical Examination Vital Signs: Vital Signs Temperature 97.6 F 02/03/17 10:00 Pulse Rate 65 02/03/17 10:00 Respiratory Rate 20 02/03/17 10:00 Blood Pressure 118/96 02/03/17 10:00 O2 Sat by Pulse Oximetry (%) 98 02/02/17 21:00 Constitutional: Yes: No Distress, Calm, Obese (morbidly) Eyes: Yes: EOM Intact HENT: Yes: Normocephalic Neck: Yes: Trachea Midline Cardiovascular: Yes: Regular Rate and Rhythm Respiratory: Yes: CTA Bilaterally Gastrointestinal: Yes: Normal Bowel Sounds, Soft, Abdomen, Obese Extremities: Yes: Other (right upper limb atrophic) Edema: Yes Edema: RLE: 1+ Peripheral Pulses WNL: Yes Integumentary: Yes: Other (bilateral lower extremity erythema improved, no drainage from fistula. intertrigo under overlapping skin folds under breasts and abdomen) Neurological: Yes: WNL Psychiatric: Yes: WNL Labs: CBC, BMP 02/02/17 06:30 02/02/17 06:30 Discharge Summary Reason For Visit: URINARY TRACT INFECTION,CHEST PAIN Hospital Course: admitted for slip, weakness, intermittent chest pains, mild UTI, lower extremity cellulitis and chronic knee infection h/o CAD, HTN, NIDDM, Morbid obesity, osteoarthritis patient improved with iv abx ID/cardiology eval was done could not do stress test due to large body habitus-did not fit machine patient is agreeable for card.cath-was transfered to tertiary [facility] - Instructions Disposition: TRANSFER ACUTE CARE/OTHER HOSP - Home Medications Comprehensive Discharge Medication List: Ambulatory Orders Aspirin [ASA -] 81 mg PO DAILY 10/05/13 Clopidogrel Bisulfate [Clopidogrel] 75 mg PO DAILY 10/05/13 Gabapentin 300 mg PO BID 10/05/13 Losartan Potassium 100 mg PO DAILY 10/05/13 Morphine Sulfate 30 mg PO Q4HWA 10/05/13 Simvastatin [Zocor -] 40 mg PO HS 10/05/13 Morphine *Immediate Release* [Msir -] 30 mg PO Q4H 03/15/14 Nystatin Powder [Nystop Powder -] 1 applic TP DAILY applic 10/30/14 Dulaglutide [Trulicity] 1.5 mg SQ WEEKLY 12/09/16
== END 2017-02-03 13:22 | disposition short-term general hospital (02) | DRG 603 ==
LOC: JER 15:47 → JERBED 18:04 → J4W 19:52
PROVIDERS: ADMIT Internal Medicine; ATTEND Internal Medicine
DX: L03.115 Cellulitis of right lower limb (principal); N39.0 Urinary tract infection, site not specified; I24.9 Acute ischemic heart disease, unspecified; Z68.44 Body mass index [BMI] 60.0-69.9, adult; L03.116 Cellulitis of left lower limb; E66.01 Morbid (severe) obesity due to excess calories; R07.9 Chest pain, unspecified; I25.10 Atherosclerotic heart disease of native coronary artery without angina pectoris; I10 Essential (primary) hypertension; E11.9 Type 2 diabetes mellitus without complications; M19.90 Unspecified osteoarthritis, unspecified site; E03.9 Hypothyroidism, unspecified; G89.29 Other chronic pain; E78.5 Hyperlipidemia, unspecified; D72.829 Elevated white blood cell count, unspecified; N28.9 Disorder of kidney and ureter, unspecified; Z98.61 Coronary angioplasty status
CPT/HCPCS: 36415; 71010-TC; 80053; 81003; 81015; 82550; 83880; 84443; 84484; 85025; 85610; 85651; 85730; 86140; 87040; 87070; 87077; 87086; 87186; 87205; 93005; 93010; 93306-TC; 97116-GP; 97161-GP; 99283-25; G0480

== ENCOUNTER 2018-01-15 18:21 | Inpatient (IN) | payer MEDICARE, OTHER ==
--- NOTE | 2018-01-15 18:59 | PDOC ---
History of Present Illness - General Chief Complaint: Injury Stated Complaint: FALL Time Seen by Provider: 01/15/18 18:59 - History of Present Illness Initial Comments: 01/15/18 20:07 The patient is a 72 year old female with a history of HTN, HLD, DM, CAD, Morbid Obesity, chronic lower extremity wounds who presents for evaluation following a fall. The patient reports that she was attempting to ambulate when she slid onto the floor and was unable to get up. She states that she was on the floor earlier afternoon before her son found her and called EMS. The patient reports chronic right leg pain, but otherwise denies head trauma or other injuries. She otherwise denies fevers, chills, SOB, chest pain, nausea, vomiting, abdominal pain, or changes with urination or bowel movements. Past History - Past Medical History Allergies/Adverse Reactions: Allergies Allergy/AdvReac Type Severity Reaction Status Date / Time No Known Allergies Allergy Verified 01/15/18 18:38 Home Medications: Ambulatory Orders Aspirin [ASA -] 81 mg PO DAILY 10/05/13 Clopidogrel Bisulfate [Clopidogrel] 75 mg PO DAILY 10/05/13 Gabapentin 300 mg PO BID 10/05/13 Losartan Potassium 100 mg PO DAILY 10/05/13 Morphine Sulfate 30 mg PO Q4HWA 10/05/13 Simvastatin [Zocor -] 40 mg PO HS 10/05/13 Morphine *Immediate Release* [Msir -] 30 mg PO Q4H 03/15/14 Nystatin Powder [Nystop Powder -] 1 applic TP DAILY applic 10/30/14 Anemia: No Asthma: No Cancer: Yes (Uterine Cancer) Cardiac Disorders: Yes (CARDIAC STENT X2) CVA: No COPD: No CHF: No Dementia: No Diabetes: Yes GI Disorders: No Disorders: No HTN: Yes Hypercholesterolemia: Yes Liver Disease: No Seizures: No Thyroid Disease: No - Surgical History Abdominal Surgery: No Appendectomy: No Cardiac Surgery: Yes (STENTS 5 yrs ago) Cholecystectomy: Yes Lung Surgery: No Neurologic Surgery: No Orthopedic Surgery: Yes (knee replacement 2005 - knee surgeries following that ) - Suicide/Smoking/Psychosocial Hx Smoking Status: No Smoking History: Former smoker Have you smoked in the past 12 months: No Number of Cigarettes Smoked Daily: 0 If you are a former smoker, when did you quit?: 15 years ago Cigars Per Day: 0 'Breaking Loose' booklet given: 03/15/14 Hx Alcohol Use: No Drug/Substance Use Hx: No Substance Use Type: None Hx Substance Use Treatment: No Review of Systems - Review of Systems Comments:: 01/15/18 20:10 Constitutional: No fevers, chills, fatigue, malaise HEENT: No Rhinorrhea, nasal congestion, visual changes Cardiovascular: No chest pain, syncope, palpitations, lightheadedness Respiratory: No Cough, SOB, Hemoptysis, Gastrointestinal: No Abdominal pain, Nausea, Vomiting, Constipation, Diarrhea, Melena Genitourinary: No Dysuria, Frequency, Urgency, Hesitancy, Hematuria, Flank pain Musculoskeletal: Right leg pain. No Myalgia, arthralgia Skin: Lower extremity uclers. No rashes, itching, bruising, pallor Neurologic: No Headache, Dizziness, Numbness, Weakness, or Tingling Psychiatric: No Hallucinations. No SI or HI *Physical Exam - Physical Exam Comments: 01/15/18 20:10 General Appearance: Nourished. Morbidly Obese No Apparent Distress HEENT: No Pharyngeal Erythema, Tonsillar Exudate, Tonsillar Erythema Neck: No Cervical Lymphadenopathy Respiratory/Chest: Lungs Clear, Normal Breath Sounds. No Crackles, Rales, Rhonchi, Wheezing Cardiovascular: Regular Rhythm, Regular Rate. No Murmur, Gallops, Rubs Gastrointestinal/Abdominal: Normal Bowel Sounds, Soft. No Guarding, Rebound, Tenderness Musculoskeletal: No CVA Tenderness Extremity: 4+ pitting edema in the lower extremity edema with purulent drainage from the right lower extremity with erythema and warmth. Normal Capillary Refill Integumentary: Normal Color, Dry, Warm Neurologic: Fully Oriented, Alert, Normal Mood/Affect, Normal Response, ED Treatment Course - LABORATORY CBC & Chemistry Diagram: 01/15/18 19:20 01/15/18 19:20 Medical Decision Making - Medical Decision Making 01/15/18 20:12 The patient is a 72 year old female with a history of HTN, HLD, DM, CAD, Morbid Obesity, chronic lower extremity wounds who presents for evaluation following a fall. Differential includes but is not limited to: Rhabdo, UTI, Cellulititis, Infections, Metabolic Derangement. Given the patient's history and physical exam, we will obtain a cbc, cmp, lactate, troponin, cpk, ua, urine culture, blood culture, ekg, chest plain film to evaluate further. We will treat with iv fluids, tylenol and continue to monitor and reassess while here in the ED. 01/15/18 23:19 CBC demonstrates an elevated wbc to 12. CMP demonstrates an increase in creatinine to 2.4. Lactate is unremarkable. UA is pending. Chest plain film is unremarkable. The patient's symptoms are likely due to a cellulitis and will require admission for further management. We will treat with vanc and zosyn. We discussed the case with the admitting team who accepted the patient for admission. *DC/Admit/Observation/Transfer Diagnosis at time of Disposition: SANGITA (acute kidney injury) Obesity Qualifiers: Obesity type: unspecified obesity type Obesity classification: unspecified obesity classification Serious obesity comorbidity presence: unspecified whether serious comorbidity present Qualified Code(s): E66.9 - Obesity, unspecified Cellulitis Qualifiers: Site of cellulitis: unspecified site Qualified Code(s): L03.90 - Cellulitis, unspecified - Discharge Dispostion Condition at time of disposition: Stable Decision to Admit order: Yes - Referrals - Patient Instructions - Post Discharge Activity
[2018-01-15] MEDS ORDERED: morphine CARPU-JECT 4 MG/1 ML DISP.SYRIN IVPUSH ONE (19:09)
--- NOTE | 2018-01-15 19:19 | PDOC ---
Attending Attestation - HPI HPI: 01/15/18 19:21 The patient is a 72 year old female, with a significant PMH of HTN, HLD, DM, morbid obesity, chronic wounds who presents to the emergency department s/p fall this afternoon. Patient was trying to come off her bed and slipped, but unknown how long she was on the floor. Patient denies head trauma or loss of consciousness. Patient walks with a cane at baseline. Patient endorses chronic right knee pain for which she takes morphine. The patient denies chest pain, shortness of breath, headache and dizziness. Denies fever, chills, nausea, vomit, diarrhea and constipation. Denies dysuria, frequency, urgency and hematuria. Allergies: NKA Past surgical history: None reported. Social history: No reported alcohol, drug or cigarette use . <Yodit Rowe - Last Filed: 01/15/18 19:51> - Resident Resident Name: Socrates Quevedo - ED Attending Attestation I have performed the following: I have examined & evaluated the patient, The case was reviewed & discussed with the resident, I agree w/resident's findings & plan - Physicial Exam PE: 01/16/18 02:12 Agree with resident exam. Pt has bilateral leg swelling; she has a poorly healed ulcer on her right knee. She has nontender abdomen; however she has a large confluent candidal infection beneath her pannus. Heart is tachy and lungs are clear. - Medical Decision Making 01/15/18 21:00 CXR portable: similar to old one from 12 months ago. Cardiomegaly. Pt is rotated to the right. Costophrenic angles are clear. 01/15/18 21:01 Cadena cath was placed for prolonged immobilization and to make sure pt has no UTI, as she has suffered with UTIs in the past. 01/16/18 02:16 Pt will be admitted for fall and UTI and cellulitis. Her PMD Antoine is aware. <Amaya Maurer - Last Filed: 01/16/18 02:16>
[2018-01-15] MEDS ORDERED: morphine SULFATE 4 MG/ML VIAL ONE (19:27)
[2018-01-15 19:30] LABS: BASO % 0.4 % (0-2.0); EOS % 0.8 % (0-4.5); HEMATOCRIT 36.1 % (32.4-45.2); HEMOGLOBIN 12.1 GM/dL (10.7-15.3); LYMPH % 6.2 % (8-40); MCH 27.4 pg (25.7-33.7); MCHC 33.4 g/dl (32.0-36.0); MEAN PLT VOLUME 8.3 fl (7.5-11.1); MONO % 5.1 % (3.8-10.2); NEUT % 87.5 % (42.8-82.8); PLATELET COUNT 260 K/MM3 (134-434); RDW 17.6 % (11.6-15.6); WHITE BLOOD COUNT 12.8 K/mm3 (4.0-10.0)
[2018-01-15] MEDS ORDERED: ACETAMINOPHEN 1000 MG/100 ML VIAL (NON FORMULARY) IVPB ONE (19:42)
[2018-01-15] MEDS ORDERED: SODIUM CHLORIDE 1,000 ML IV STA (19:43)
[2018-01-15] MEDS ORDERED: NYSTATIN POWDER 100,000 UNITS/GM - 15 GM TOPICAL POWDER TP SCH (19:45)
[2018-01-15] MEDS ORDERED: morphine SULFATE IMMEDIATE RELEASE 30 MG TAB PO ONE (19:53)
[2018-01-15] MEDS ORDERED: ACETAMINOPHEN INJECTION 100 ML IVPB ONE (20:10)
[2018-01-15] MEDS ORDERED: morphine SULFATE IMMEDIATE RELEASE 30 MG TAB ONE (20:10)
[2018-01-15 20:33] LABS: ALBUMIN 2.6 g/dl (3.4-5.0); ALK PHOS 110 U/L (45-117); ANION GAP 7 MMOL/L (8-16); BILIRUBIN,TOTAL 0.8 mg/dL (0.2-1); BLOOD UREA NITROGEN 32 mg/dL (7-18); CALCIUM 8.2 mg/dL (8.5-10.1); CHLORIDE 107 mmol/L (98-107); CO2 30 mmol/L (21-32); CREATININE 2.4 mg/dL (0.55-1.3); N-TERMINAL BNP 783.2 pg/ml (5-125); POTASSIUM 5.6 mmol/L (3.5-5.1); SGOT/AST 21 U/L (15-37); SGPT/ALT 18 U/L (13-61); SODIUM 144 mmol/L (136-145)
[2018-01-15 20:34] LABS: GLUCOSE,RANDOM 46 mg/dL (74-106)
[2018-01-15] MEDS ORDERED: DEXTROSE 50%-WATER - 25 GM/50 ML VIAL IVPUSH ONE (20:34)
[2018-01-15] MEDS ORDERED: PIPERACILLIN/TAZOB 4.5 GM 4.5 GM in DEXTROSE 5%-WATER 100 ML IVPB ONE (20:34)
[2018-01-15] MEDS ORDERED: VANCOMYCIN 1,500 MG in DEXTROSE 5%-WATER - 500 ML IVPB ONE (20:36)
[2018-01-15] MEDS ORDERED: SODIUM POLYSTYRENE SULFONATE 15 GM/60 ML BOTTLE PO ONE (20:55)
[2018-01-15] MEDS ORDERED: DEXTROSE 50%-WATER 25 GM/50 ML DISP.SYRIN ONE (20:58)
[2018-01-15] MEDS ORDERED: PIPERACILLIN/TAZOB 4.5 GM 4.5 GM/100 ML BAG IVPB ONE (20:59)
[2018-01-15 21:17] LABS: URINE APPEARANCE CLOUDY; URINE BILIRUBIN NEGATIVE (<2.0 mg/dL); URINE COLOR DKYELLOW; URINE GLUCOSE (UA) NEGATIVE (NEGATIVE); URINE KETONE NEGATIVE (NEGATIVE); URINE LEUK ESTERASE TRACE (NEGATIVE); URINE NITRITE NEGATIVE (NEGATIVE); URINE PROTEIN 2+ (NEGATIVE)
[2018-01-15 21:20] LABS: EPI CELLS FEW /HPF (FEW); URINE BACTERIA MANY /hpf (NONE SEEN); URINE MUCUS RARE
[2018-01-15] MEDS ORDERED: SODIUM CHLORIDE 0.45% 1,000 ML IV SCH (21:45)
[2018-01-15] MEDS ORDERED: PIPERACILLIN/TAZOBACTAM 4.5 GM VIAL IVPB ONE (23:22)
[2018-01-15] MEDS ORDERED: DEXTROSE 5%-WATER 100 ML IVPB ONE (23:22)
[2018-01-15] MEDS: ATORVASTATIN CA 20 MG TABLET (FP) PO SCH (23:28)
[2018-01-15] MEDS: morphine SO4 SUSTAINED ACTING 30 MG TABLET.SA PO SCH (23:28)
[2018-01-15] MEDS: GABAPENTIN 300 MG CAPSULE (FP) PO SCH (23:28)
[2018-01-15] MEDS: NYSTATIN POWDER 100,000 UNITS/GM - 15 GM TOPICAL POWDER TP SCH (23:31)
[2018-01-16 00:10] VITALS: BMI 67.3
[2018-01-16] MEDS: morphine SULFATE IMMEDIATE RELEASE 30 MG TAB PO PRN ×4 (00:44→15:50)
[2018-01-16 07:10] LABS: BASO % 0.5 % (0-2.0); EOS % 4.3 % (0-4.5); HEMATOCRIT 31.3 % (32.4-45.2); HEMOGLOBIN 10.2 GM/dL (10.7-15.3); LYMPH % 11.7 % (8-40); MCH 26.4 pg (25.7-33.7); MCHC 32.5 g/dl (32.0-36.0); MEAN CELL VOLUME 81.1 fl (80-96); MEAN PLT VOLUME 8.3 fl (7.5-11.1); MONO % 4.8 % (3.8-10.2); NEUT % 78.7 % (42.8-82.8); PLATELET COUNT 229 K/MM3 (134-434); RBC 3.86 M/mm3 (3.60-5.2); WHITE BLOOD COUNT 9.4 K/mm3 (4.0-10.0)
--- NOTE | 2018-01-16 07:32 | HP ---
Admitting History and Physical - Primary Care Physician PCP: Vinicio Leahy - Admission Chief Complaint: fell at home, could not get up History Source: Patient Limitations to Obtaining History: No Limitations - Past Medical History Cardiovascular: Yes: CAD (s/p cardiac stents, last cath in Mar 2014 showed nonobstructive disease), HTN, Hyperlipdemia Pulmonary: Yes: COPD Gastrointestinal: Yes: Constipation Infectious Disease: Yes: MRSA (h/o MRSA several years ago) Musculoskeletal: Yes: Osteoarthritis Endocrine: Yes: Diabetes Mellitus, Other (Morbid Obesity) - Past Surgical History Past Surgical History: Yes: Cholecystectomy, Hysterectomy, Joint Replacement (R knee as above) - Smoking History Smoking history: Former smoker Have you smoked in the past 12 months: No Aproximately how many cigarettes per day: 0 If you are a former smoker, when did you quit?: 15 years ago - Alcohol/Substance Use Hx Alcohol Use: No - Social History Usual Living Arrangement: Yes: With Child ADL: Family Assistance History of Recent Travel: No Home Medications - Allergies Allergies/Adverse Reactions: Allergies Allergy/AdvReac Type Severity Reaction Status Date / Time No Known Allergies Allergy Verified 01/15/18 18:38 - Home Medications Home Medications: Ambulatory Orders Aspirin [ASA -] 81 mg PO DAILY 10/05/13 Clopidogrel Bisulfate [Clopidogrel] 75 mg PO DAILY 10/05/13 Gabapentin 300 mg PO BID 10/05/13 Losartan Potassium 100 mg PO DAILY 10/05/13 Morphine Sulfate 30 mg PO Q4HWA 10/05/13 Simvastatin [Zocor -] 40 mg PO HS 10/05/13 Morphine *Immediate Release* [Msir -] 30 mg PO Q4H 03/15/14 Nystatin Powder [Nystop Powder -] 1 applic TP DAILY applic 10/30/14 Family Disease History - Family Disease History Family History: Unable to Obtain Review of Systems - Review of Systems Constitutional: reports: Weakness Eyes: reports: No Symptoms Neck: reports: No Symptoms Cardiovascular: reports: No Symptoms Respiratory: reports: No Symptoms Gastrointestinal: reports: No Symptoms Genitourinary: reports: No Symptoms Musculoskeletal: reports: Back Pain, Joint Pain Integumentary: reports: Other (chronic skin changes) Neurological: reports: No Symptoms Psychiatric: reports: Anxiety Physical Examination Vital Signs: Vital Signs Temperature 98.0 F 01/16/18 02:00 Pulse Rate 84 01/16/18 02:00 Respiratory Rate 01/16/18 02:00 Blood Pressure 108/48 L 01/16/18 02:00 O2 Sat by Pulse Oximetry (%) 95 01/15/18 23:12 Constitutional: Yes: Obese, Poor Hygeine Eyes: Yes: Conjunctiva Clear HENT: Yes: Atraumatic, Normocephalic Neck: Yes: Trachea Midline Cardiovascular: Yes: Regular Rate and Rhythm Respiratory: Yes: CTA Bilaterally Gastrointestinal: Yes: Normal Bowel Sounds, Soft Musculoskeletal: Yes: Back Pain, Joint Stiffness Extremities: Yes: Shortened, Other (congenital deformity right arm) Edema: Yes Peripheral Pulses WNL: Yes Integumentary: Yes: Other (severe candidiasis under breasts, armpits, abdmonial folds bilateral lower ext +edema, chronic soin changes, erythema chronic fistula under right knee with minimla drainage) Neurological: Yes: WNL Psychiatric: Yes: WNL Labs: Laboratory Tests 01/15/18 01/15/18 01/15/18 19:09 19:20 19:20 WBC 12.8 H RBC 4.40 Hgb 12.1 Hct 36.1 MCV 82.0 MCH 27.4 MCHC 33.4 RDW 17.6 H Plt Count 260 D MPV 8.3 Absolute Neuts (auto) 11.2 H Neutrophils % 87.5 H Lymphocytes % 6.2 L D Monocytes % 5.1 Eosinophils % 0.8 D Basophils % 0.4 Nucleated RBC % 0 Sodium 144 Potassium 5.6 H Chloride 107 Carbon Dioxide 30 Anion Gap 7 L BUN 32 H Creatinine 2.4 H Creat Clearance w eGFR 19.90 Random Glucose 46 L* Lactic Acid Calcium 8.2 L Total Bilirubin 0.8 AST 21 ALT 18 Alkaline Phosphatase 110 Creatine Kinase 79 Troponin I 0.03 B-Natriuretic Peptide 783.2 H Total Protein 6.0 L Albumin 2.6 L Urine Color Dkyellow Urine Appearance Cloudy Urine pH 5.0 Ur Specific [place] 1.015 Urine Protein 2+ H Urine Glucose (UA) Negative Urine Ketones Negative Urine Blood 3+ H Urine Nitrite Negative Urine Bilirubin Negative Urine Urobilinogen 2.0 H Ur Leukocyte Esterase Trace Urine WBC (Auto) 15 Urine RBC (Auto) 84 Ur Epithelial Cells Few Urine Bacteria Many Urine Mucus Rare 01/15/18 01/16/18 19:30 06:00 WBC 9.4 RBC 3.86 Hgb 10.2 L Hct 31.3 L MCV 81.1 MCH 26.4 MCHC 32.5 RDW 18.0 H Plt Count 229 MPV 8.3 Absolute Neuts (auto) 7.4 Neutrophils % 78.7 Lymphocytes % 11.7 D Monocytes % 4.8 Eosinophils % 4.3 D Basophils % 0.5 Nucleated RBC % 0 Sodium Potassium Chloride Carbon Dioxide Anion Gap BUN Creatinine Creat Clearance w eGFR Random Glucose Lactic Acid 1.5 Calcium Total Bilirubin AST ALT Alkaline Phosphatase Creatine Kinase Troponin I B-Natriuretic Peptide Total Protein Albumin Urine Color Urine Appearance Urine pH Ur Specific [place] Urine Protein Urine Glucose (UA) Urine Ketones Urine Blood Urine Nitrite Urine Bilirubin Urine Urobilinogen Ur Leukocyte Esterase Urine WBC (Auto) Urine RBC (Auto) Ur Epithelial Cells Urine Bacteria Urine Mucus Problem List - Problems (1) SANGITA (acute kidney injury) Code(s): N17.9 - ACUTE KIDNEY FAILURE, UNSPECIFIED (2) Cellulitis Code(s): L03.90 - CELLULITIS, UNSPECIFIED Qualifiers: Site of cellulitis: extremity Site of cellulitis of extremity: lower extremity Laterality: unspecified laterality Qualified Code(s): L03.119 - Cellulitis of unspecified part of limb (3) Obesity Code(s): E66.9 - OBESITY, UNSPECIFIED Qualifiers: Obesity type: unspecified obesity type Obesity classification: adult class 3 (BMI >= 40) Serious obesity comorbidity presence: unspecified whether serious comorbidity present Body mass index: BMI 60.0-69.9 Qualified Code(s) : E66.01 - Morbid (severe) obesity due to excess calories; Z68.44 - Body mass index (BMI) 60.0-69.9, adult (4) CAD (coronary artery disease) Code(s): I25.10 - ATHSCL HEART DISEASE OF [place] CORONARY ARTERY W/O ANG PCTRS Qualifiers: Coronary Disease-Associated Artery/Lesion type: [place] coronary artery Associated angina: without angina pectoris (5) Chronic pain Code(s): G89.29 - OTHER CHRONIC PAIN Qualifiers: Chronic pain type: chronic pain syndrome Qualified Code(s): G89.4 - Chronic pain syndrome (6) Diabetes mellitus Code(s): E11.9 - TYPE 2 DIABETES MELLITUS WITHOUT COMPLICATIONS Qualifiers: Diabetes mellitus type: type 2 Diabetes mellitus complication detail: with chronic kidney disease Chronic kidney disease stage: stage 2 (mild) (7) Dyslipidemia Code(s): E78.5 - HYPERLIPIDEMIA, UNSPECIFIED (8) HTN (hypertension) Code(s): I10 - ESSENTIAL (PRIMARY) HYPERTENSION Qualifiers: Hypertension type: essential hypertension Qualified Code(s): I10 - Essential (primary) hypertension (9) Limb deformities, congenital Code(s): 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 Assessment/Plan iv fluids iv abx DVT prophylaxis PT eval will need social evaluation for chr. care
[2018-01-16 08:01] LABS: ALBUMIN 2.1 g/dl (3.4-5.0); ALK PHOS 90 U/L (45-117); ANION GAP 9 MMOL/L (8-16); BILIRUBIN,TOTAL 0.8 mg/dL (0.2-1); BLOOD UREA NITROGEN 34 mg/dL (7-18); CALCIUM 7.5 mg/dL (8.5-10.1); CHLORIDE 103 mmol/L (98-107); CO2 27 mmol/L (21-32); CREATININE 2.2 mg/dL (0.55-1.3); POTASSIUM 4.4 mmol/L (3.5-5.1); SGOT/AST 31 U/L (15-37); SGPT/ALT 20 U/L (13-61); SODIUM 139 mmol/L (136-145); TOT PROT 4.8 g/dl (6.4-8.2)
[2018-01-16 08:14] LABS: GLUCOSE,RANDOM 30 mg/dL (74-106)
[2018-01-16] MEDS ORDERED: DEXTROSE 5%-0.45% SALINE 1,000 ML IV SCH (09:45)
[2018-01-16] MEDS ORDERED: AMPICILLIN NA/SULBACTAM NA 1.5 GM in SODIUM CHLORIDE 100 ML IVPB SCH (10:00)
[2018-01-16] MEDS ORDERED: SODIUM CHLORIDE 100 ML IVPB ONE (10:02)
[2018-01-16] MEDS ORDERED: PT OWN MED DRAWER 7, Y5N ONE (10:02)
[2018-01-16] MEDS ORDERED: AMPICILLIN NA/SULBACTAM NA 1.5 GM VIAL ONE (10:02)
[2018-01-16] MEDS: CLOPIDOGREL BISULFATE 75 MG TABLET (FP) PO SCH (10:11)
[2018-01-16] MEDS: GABAPENTIN 300 MG CAPSULE (FP) PO SCH ×3 (10:11→21:09)
[2018-01-16] MEDS: morphine SO4 SUSTAINED ACTING 30 MG TABLET.SA PO SCH ×2 (10:11→21:08)
[2018-01-16] MEDS: CALCIUM 500MG/VIT-D 200 UNITS COMBO TABLET (FP) PO SCH (10:11)
[2018-01-16] MEDS: ASPIRIN 81 MG CHEWABLE TABLETS PO SCH (10:11)
[2018-01-16] MEDS: ENOXAPARIN NA (PORCINE) 40 MG/0.4 ML DISP.SYRIN SQ SCH (10:12)
[2018-01-16] MEDS: NYSTATIN POWDER 100,000 UNITS/GM - 15 GM TOPICAL POWDER TP SCH (10:15)
--- NOTE | 2018-01-16 14:48 | PN ---
Progress Note (short form) - Note Progress Note: ID Consult dictated Recurrent LE cellulitis Leukocytosis/ hypoglycemia R/O sepsis secondary to skin source Azotemia Chronically infected R TKR Pending sepsis workup, empiric vancomycin/ zosyn, adjusted for azotemia
[2018-01-16] MEDS ORDERED: PIPERACILLIN/TAZOBACTAM 2.25 GM VIAL IVPB ONE ×2 (15:38→18:02)
[2018-01-16] MEDS ORDERED: DEXTROSE 5%-WATER - 50 ML IVPB ONE ×2 (15:38→18:02)
[2018-01-16] MEDS: PIPERACILLIN/TAZOB 2.25 GM 2.25 GM in DEXTROSE 5%-WATER - 50 ML IVPB SCH ×2 (15:45→18:05)
--- NOTE | 2018-01-16 16:02 | CONS ---
DATE OF CONSULTATION: INFECTIOUS DISEASE CONSULTATION DATE OF DICTATION: 01/16/2018 The patient is a 72-year-old female with a history of a chronically infected right total knee replacement on chronic suppressive antibiotic therapy, history of chronic venous stasis dermatitis lower extremities and recurrent cellulitis now evaluated for possible sepsis. The patient was admitted to the hospital on December 15, 2017 after slipping from the bed and falling onto the floor. She was taken by EMS to the emergency room. She was noted to have an elevated white blood cell count of 12.8 as well as erythema and warmth of the lower extremities bilaterally. The patient has a history of chronic lymphedema, chronic venous stasis, dermatitis, and recurrent cellulitis of the lower extremities. In the past the wound cultures have grown pseudomonas and diphtheroids. She denies any recent febrile illness. She continues to take amoxicillin twice a day for her chronically infected right knee prosthesis. She has continued drainage from the sinus tract over the right knee; however, she reports that the drainage has decreased considerably. PAST MEDICAL HISTORY: Positive for morbid obesity, insulin dependent diabetes mellitus, hypertension, hyperlipidemia, coronary artery disease, COPD and chronic venous stasis dermatitis lower extremities. PAST SURGICAL HISTORY: Status post coronary artery stent, hysterectomy and cholecystectomy. 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 She has had 6 or 7 operations on that knee and was felt to not be a surgical candidate thus she has been taking chronic antibiotic suppressive therapy. ALLERGIES: No known allergies. MEDICATIONS: Include aspirin, Plavix, Neurontin, losartan, simvastatin and amoxicillin. SOCIAL HISTORY: She resides at home. 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 She is a former smoker. SYSTEMS REVIEW: Neurologic: No loss of consciousness, seizure activity or focal weakness. Cardiovascular: Negative chest pain or palpitations. Respiratory: Negative cough or sputum production. Gastrointestinal: Negative vomiting or diarrhea. Genitourinary: Negative for urinary tract infection. LABORATORY DATA: White count 12.8, hematocrit 31.3, and platelet count 229. BUN 34, creatinine 2.2, and glucose 30. PHYSICAL EXAMINATION: General: She is supine in bed in no acute distress. The patient is in no acute distress not acutely toxic appearing. Vital Signs: Temperature 98.4, blood pressure 115/78, pulse 72 and regular, and respirations 18 per minute. HEENT: Sclerae anicteric. Heart: Sounds S1, S2. Lungs: Clear. Abdomen: Obese, soft and nontender. Extremities: Examination of bilateral lower extremities: Bilateral lower extremity edema with chronic venous stasis dermatitis. There is erythema and warmth involving both lower extremities from below the knee to the feet. No lymphangitic streaking. There is a sinus tract over the right patella with no expressible pus. IMPRESSION: 1. Recurrent cellulitis of the lower extremities bilaterally. 2. Leukocytosis hypoglycemia rule out sepsis secondary to skin sores. 3. Chronically infected right total knee rep placement. 4. Azotemia. Await cultures. Empiric coverage with vancomycin and Zosyn adjusted for renal insufficiency local wound care. We will follow. Thank you for the kind referral. REKHA PIERRE M.D. [id number]
--- NOTE | 2018-01-16 18:55 | EKG ---
Test Reason : Blood Pressure : / mmHG Vent. Rate : 085 BPM Atrial Rate : 085 BPM P-R Int : 194 ms QRS Dur : 068 ms QT Int : 392 ms P-R-T Axes : 098 052 050 degrees QTc Int : 466 ms NORMAL SINUS RHYTHM BASELINE ARTIFACT LOW VOLTAGE QRS ABNORMAL ECG WHEN COMPARED WITH ECG OF 03-FEB-2017 09:56, VENT. RATE HAS INCREASED BY 32 BPM Confirmed by WILLIAM PETERSON, MICHAEL ([id number]) on 01/16/2018 6:54:56 PM Referred By: Confirmed By:MICHAEL THOMAS MD
[2018-01-16] MEDS: VANCOMYCIN 1 GRAM (PRE-DOCKED) 1,000 MG/250 ML BAG IVPB SCH ×2 (21:07→21:09)
[2018-01-16] MEDS: ATORVASTATIN CA 20 MG TABLET (FP) PO SCH ×2 (21:08→21:09)
[2018-01-17] MEDS: morphine SULFATE IMMEDIATE RELEASE 30 MG TAB PO PRN ×4 (00:15→18:12)
[2018-01-17] MEDS ORDERED: DEXTROSE 5%-WATER - 50 ML IVPB ONE ×3 (01:33→17:28)
[2018-01-17] MEDS ORDERED: PIPERACILLIN/TAZOBACTAM 2.25 GM VIAL IVPB ONE ×3 (01:33→17:28)
[2018-01-17] MEDS: PIPERACILLIN/TAZOB 2.25 GM 2.25 GM in DEXTROSE 5%-WATER - 50 ML IVPB SCH ×3 (01:41→18:09)
[2018-01-17 08:25] LABS: ALBUMIN 1.9 g/dl (3.4-5.0); ALK PHOS 85 U/L (45-117); ANION GAP 6 MMOL/L (8-16); BILIRUBIN,TOTAL 0.4 mg/dL (0.2-1); BLOOD UREA NITROGEN 32 mg/dL (7-18); CALCIUM 7.5 mg/dL (8.5-10.1); CHLORIDE 104 mmol/L (98-107); CO2 27 mmol/L (21-32); GLUCOSE,RANDOM 96 mg/dL (74-106); POTASSIUM 4.8 mmol/L (3.5-5.1); SGOT/AST 18 U/L (15-37); SGPT/ALT 19 U/L (13-61); SODIUM 137 mmol/L (136-145); TOT PROT 4.7 g/dl (6.4-8.2)
[2018-01-17 08:29] LABS: BASO % 0.6 % (0-2.0); EOS % 4.8 % (0-4.5); HEMATOCRIT 30.3 % (32.4-45.2); HEMOGLOBIN 9.8 GM/dL (10.7-15.3); LYMPH % 11.8 % (8-40); MCH 26.2 pg (25.7-33.7); MCHC 32.5 g/dl (32.0-36.0); MEAN CELL VOLUME 80.8 fl (80-96); MEAN PLT VOLUME 8.2 fl (7.5-11.1); MONO % 4.4 % (3.8-10.2); NEUT % 78.4 % (42.8-82.8); PLATELET COUNT 210 K/MM3 (134-434); RBC 3.74 M/mm3 (3.60-5.2); RDW 17.4 % (11.6-15.6); WHITE BLOOD COUNT 9.1 K/mm3 (4.0-10.0)
--- NOTE | 2018-01-17 08:32 | PN ---
Progress Note (short form) - Note Progress Note: c/o pain in her legs did not leave bed yesterday CBC, BMP 01/17/18 07:10 Vital Signs Period Temp Pulse Resp BP Sys/[place]ott[place] Pulse Ox Last 24 Hr 97.8 F-98.5 F 72-99 18-20 115-147/71-91 93-94 s1s2 rrr lungs cta ant morbid obesity candidiasis under breasts, armpit, abdomen legs are scaly chronic seroupurulent discharge from right knee fistula tr edema positive pulses IMP cellulitis candidiasis morbid obesity HTN stable CAD stable DM on home insulin prolonged hypoglycemia due to insulin likely-wikll hold off of insulin and monitor SANGITA resolving, almost at baseline PLAN iv abx consult appreciated physical therapy GI/DVT prophylaxis Problem List - Problems (1) SANGITA (acute kidney injury) Code(s): N17.9 - ACUTE KIDNEY FAILURE, UNSPECIFIED (2) Cellulitis Code(s): L03.90 - CELLULITIS, UNSPECIFIED Qualifiers: Site of cellulitis: extremity Site of cellulitis of extremity: lower extremity Laterality: unspecified laterality Qualified Code(s): L03.119 - Cellulitis of unspecified part of limb (3) Obesity Code(s): E66.9 - OBESITY, UNSPECIFIED Qualifiers: Obesity type: unspecified obesity type Obesity classification: adult class 3 (BMI >= 40) Serious obesity comorbidity presence: unspecified whether serious comorbidity present Body mass index: BMI 60.0-69.9 Qualified Code(s) : E66.01 - Morbid (severe) obesity due to excess calories; Z68.44 - Body mass index (BMI) 60.0-69.9, adult (4) CAD (coronary artery disease) Code(s): I25.10 - ATHSCL HEART DISEASE OF [place] CORONARY ARTERY W/O ANG PCTRS Qualifiers: Coronary Disease-Associated Artery/Lesion type: [place] coronary artery Associated angina: without angina pectoris (5) Chronic pain Code(s): G89.29 - OTHER CHRONIC PAIN Qualifiers: Chronic pain type: chronic pain syndrome Qualified Code(s): G89.4 - Chronic pain syndrome (6) Diabetes mellitus Code(s): E11.9 - TYPE 2 DIABETES MELLITUS WITHOUT COMPLICATIONS Qualifiers: Diabetes mellitus type: type 2 Diabetes mellitus complication detail: with chronic kidney disease Chronic kidney disease stage: stage 2 (mild) (7) Dyslipidemia Code(s): E78.5 - HYPERLIPIDEMIA, UNSPECIFIED (8) HTN (hypertension) Code(s): I10 - ESSENTIAL (PRIMARY) HYPERTENSION Qualifiers: Hypertension type: essential hypertension Qualified Code(s): I10 - Essential (primary) hypertension (9) Limb deformities, congenital Code(s): 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
[2018-01-17] MEDS: morphine SO4 SUSTAINED ACTING 30 MG TABLET.SA PO SCH ×2 (10:24→21:17)
[2018-01-17] MEDS: ASPIRIN 81 MG CHEWABLE TABLETS PO SCH (10:24)
[2018-01-17] MEDS: RANITIDINE HCL 150 MG TABLET (FP) PO SCH (10:25)
[2018-01-17] MEDS: GABAPENTIN 300 MG CAPSULE (FP) PO SCH ×2 (10:25→21:17)
[2018-01-17] MEDS: NYSTATIN POWDER 100,000 UNITS/GM - 15 GM TOPICAL POWDER TP SCH (10:26)
[2018-01-17] MEDS: CLOPIDOGREL BISULFATE 75 MG TABLET (FP) PO SCH (10:26)
[2018-01-17] MEDS: CALCIUM 500MG/VIT-D 200 UNITS COMBO TABLET (FP) PO SCH (10:26)
[2018-01-17] MEDS: ENOXAPARIN NA (PORCINE) 40 MG/0.4 ML DISP.SYRIN SQ SCH (12:13)
--- NOTE | 2018-01-17 15:48 | PN ---
Progress Note, Physician History of Present Illness: C/O bilateral leg pain No c/o fever/ chills Tolerating antibiotics - Current Medication List Current Medications: Active Medications Aspirin (Asa -) 81 mg PO DAILY [facility] Last Admin: 01/17/18 10:24 Dose: 81 mg Atorvastatin Calcium (Lipitor -) 20 mg PO HS [facility] Last Admin: 01/16/18 21:09 Dose: 20 mg Calcium Carbonate/Cholecalciferol (Os-Jorge 500+D -) 2 tab PO DAILY [facility] Last Admin: 01/17/18 10:26 Dose: 2 tab Clopidogrel Bisulfate (Plavix -) 75 mg PO DAILY [facility] Last Admin: 01/17/18 10:26 Dose: 75 mg Enoxaparin Sodium (Lovenox -) 40 mg SQ DAILY [facility] Last Admin: 01/17/18 12:13 Dose: 40 mg Gabapentin (Neurontin -) 300 mg PO BID [facility] Last Admin: 01/17/18 10:25 Dose: 300 mg Piperacillin Sod/Tazobactam (Sod 2.25 gm/ Dextrose) 50 mls @ 100 mls/hr IVPB Q8H-IV [facility]; Protocol Last Admin: 01/17/18 10:25 Dose: 100 mls/hr Vancomycin HCl (Vancomycin (Pre-Docked)) 1,000 mg in 250 mls @ 200 mls/hr IVPB Q24H [facility]; Protocol Last Admin: 01/16/18 21:09 Dose: 200 mls/hr Morphine Sulfate (Msir -) 30 mg PO Q4H PRN PRN Reason: PAIN LEVEL 7 - 10 Last Admin: 01/17/18 14:08 Dose: 30 mg Morphine Sulfate (Ms Contin -) 60 mg PO BID [facility] Last Admin: 01/17/18 10:24 Dose: 60 mg Nystatin (Nystop Powder -) 1 applic TP DAILY [facility] Last Admin: 01/17/18 10:26 Dose: 1 applic Ranitidine HCl (Zantac -) 150 mg PO DAILY [facility] Last Admin: 01/17/18 10:25 Dose: 150 mg - Objective Vital Signs: Vital Signs Temperature 98.7 F 01/17/18 14:00 Pulse Rate 76 01/17/18 06:00 Respiratory Rate 20 01/17/18 06:00 Blood Pressure 147/71 01/17/18 06:00 O2 Sat by Pulse Oximetry (%) 94 L 01/16/18 22:00 Constitutional: Yes: No Distress, Obese Eyes: Yes: Conjunctiva Clear Cardiovascular: Yes: Regular Rate and Rhythm, S1, S2 Respiratory: Yes: CTA Bilaterally Gastrointestinal: Yes: Normal Bowel Sounds, Soft. No: Tenderness Extremities: Yes: Other (+ erythema/ warmth LE bilaterally No wound drainage noted) Labs: CBC, BMP 01/17/18 07:10 01/17/18 07:10 Assessment/Plan Cellulitis LE bilaterally Chronic venous stasis dermatitis Azotemia Continue empiric zosyn/ vancomycin
[2018-01-17] MEDS: ATORVASTATIN CA 20 MG TABLET (FP) PO SCH (21:17)
[2018-01-17] MEDS: VANCOMYCIN 1 GRAM (PRE-DOCKED) 1,000 MG/250 ML BAG IVPB SCH (21:17)
[2018-01-18] MEDS ORDERED: DEXTROSE 5%-WATER - 50 ML IVPB ONE ×2 (01:00→10:18)
[2018-01-18] MEDS ORDERED: PIPERACILLIN/TAZOBACTAM 2.25 GM VIAL IVPB ONE ×3 (01:00→16:56)
[2018-01-18] MEDS: PIPERACILLIN/TAZOB 2.25 GM 2.25 GM in DEXTROSE 5%-WATER - 50 ML IVPB SCH ×3 (01:30→16:59)
--- NOTE | 2018-01-18 08:55 | PN ---
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 tr edema positive pulses IMP cellulitis candidiasis morbid obesity HTN stable CAD stable DM on home insulin SANGITA resolving, almost at baseline DM PLAN iv abx as per id consult appreciated physical therapy GI/DVT prophylaxis resume low dose levemir dc planning to STR once on oral abx add lac-hydrin to legs Problem List - Problems (1) SANGITA (acute kidney injury) Code(s): N17.9 - ACUTE KIDNEY FAILURE, UNSPECIFIED (2) Cellulitis Code(s): L03.90 - CELLULITIS, UNSPECIFIED Qualifiers: Site of cellulitis: extremity Site of cellulitis of extremity: lower extremity Laterality: unspecified laterality Qualified Code(s): L03.119 - Cellulitis of unspecified part of limb (3) Obesity Code(s): E66.9 - OBESITY, UNSPECIFIED Qualifiers: Obesity type: unspecified obesity type Obesity classification: adult class 3 (BMI >= 40) Serious obesity comorbidity presence: unspecified whether serious comorbidity present Body mass index: BMI 60.0-69.9 Qualified Code(s) : E66.01 - Morbid (severe) obesity due to excess calories; Z68.44 - Body mass index (BMI) 60.0-69.9, adult (4) CAD (coronary artery disease) Code(s): I25.10 - ATHSCL HEART DISEASE OF [place] CORONARY ARTERY W/O ANG PCTRS Qualifiers: Coronary Disease-Associated Artery/Lesion type: [place] coronary artery Associated angina: without angina pectoris (5) Chronic pain Code(s): G89.29 - OTHER CHRONIC PAIN Qualifiers: Chronic pain type: chronic pain syndrome Qualified Code(s): G89.4 - Chronic pain syndrome (6) Diabetes mellitus Code(s): E11.9 - TYPE 2 DIABETES MELLITUS WITHOUT COMPLICATIONS Qualifiers: Diabetes mellitus type: type 2 Diabetes mellitus complication detail: with chronic kidney disease Chronic kidney disease stage: stage 2 (mild) (7) Dyslipidemia Code(s): E78.5 - HYPERLIPIDEMIA, UNSPECIFIED (8) HTN (hypertension) Code(s): I10 - ESSENTIAL (PRIMARY) HYPERTENSION Qualifiers: Hypertension type: essential hypertension Qualified Code(s): I10 - Essential (primary) hypertension (9) Limb deformities, congenital Code(s): 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
[2018-01-18] MEDS: morphine SO4 SUSTAINED ACTING 30 MG TABLET.SA PO SCH ×2 (10:10→22:14)
[2018-01-18] MEDS: CALCIUM 500MG/VIT-D 200 UNITS COMBO TABLET (FP) PO SCH (10:25)
[2018-01-18] MEDS: ASPIRIN 81 MG CHEWABLE TABLETS PO SCH (10:26)
[2018-01-18] MEDS: ENOXAPARIN NA (PORCINE) 40 MG/0.4 ML DISP.SYRIN SQ SCH (10:26)
[2018-01-18] MEDS: GABAPENTIN 300 MG CAPSULE (FP) PO SCH ×2 (10:26→22:14)
[2018-01-18] MEDS: RANITIDINE HCL 150 MG TABLET (FP) PO SCH (10:26)
[2018-01-18] MEDS: CLOPIDOGREL BISULFATE 75 MG TABLET (FP) PO SCH (10:26)
[2018-01-18] MEDS: NYSTATIN POWDER 100,000 UNITS/GM - 15 GM TOPICAL POWDER TP SCH (10:27)
[2018-01-18] MEDS: morphine SULFATE IMMEDIATE RELEASE 30 MG TAB PO PRN ×4 (13:12→23:45)
[2018-01-18] MEDS ORDERED: PT OWN MED DRAWER 7, Y5N ONE (13:19)
[2018-01-18] MEDS: AMMONIUM LACTATE 12% LOTION 225 GM BOTTLE TP SCH (13:21)
[2018-01-18] MEDS: VANCOMYCIN 1 GRAM (PRE-DOCKED) 1,000 MG/250 ML BAG IVPB SCH (22:13)
[2018-01-18] MEDS: ATORVASTATIN CA 20 MG TABLET (FP) PO SCH (22:14)
[2018-01-18] MEDS: INSULIN (LEVEMIR) 100 UNITS/ML UNITS SQ SCH (22:22)
[2018-01-19] MEDS ORDERED: PIPERACILLIN/TAZOBACTAM 2.25 GM VIAL IVPB ONE ×3 (00:43→17:31)
[2018-01-19] MEDS ORDERED: DEXTROSE 5%-WATER - 50 ML IVPB ONE ×3 (00:44→17:32)
[2018-01-19] MEDS: PIPERACILLIN/TAZOB 2.25 GM 2.25 GM in DEXTROSE 5%-WATER - 50 ML IVPB SCH ×3 (02:13→17:41)
[2018-01-19] MEDS: morphine SULFATE IMMEDIATE RELEASE 30 MG TAB PO PRN ×3 (03:24→16:31)
[2018-01-19 08:03] LABS: BASO % 0.5 % (0-2.0); EOS % 5.5 % (0-4.5); HEMATOCRIT 32.2 % (32.4-45.2); HEMOGLOBIN 10.5 GM/dL (10.7-15.3); LYMPH % 14.1 % (8-40); MCH 26.5 pg (25.7-33.7); MCHC 32.6 g/dl (32.0-36.0); MEAN CELL VOLUME 81.1 fl (80-96); MEAN PLT VOLUME 8.3 fl (7.5-11.1); MONO % 4.4 % (3.8-10.2); NEUT % 75.5 % (42.8-82.8); PLATELET COUNT 242 K/MM3 (134-434); RBC 3.97 M/mm3 (3.60-5.2); RDW 17.6 % (11.6-15.6); WHITE BLOOD COUNT 8.9 K/mm3 (4.0-10.0)
--- NOTE | 2018-01-19 08:30 | PN ---
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 tr edema positive pulses IMP cellulitis candidiasis morbid obesity HTN stable CAD stable DM on home insulin SANGITA resolving, almost at baseline DM PLAN iv abx as per id consult appreciated physical therapy GI/DVT prophylaxis low dose levemir dc planning to STR once on oral abx lac-hydrin to legs Problem List - Problems (1) SANGITA (acute kidney injury) Code(s): N17.9 - ACUTE KIDNEY FAILURE, UNSPECIFIED (2) Cellulitis Code(s): L03.90 - CELLULITIS, UNSPECIFIED Qualifiers: Site of cellulitis: extremity Site of cellulitis of extremity: lower extremity Laterality: unspecified laterality Qualified Code(s): L03.119 - Cellulitis of unspecified part of limb (3) Obesity Code(s): E66.9 - OBESITY, UNSPECIFIED Qualifiers: Obesity type: unspecified obesity type Obesity classification: adult class 3 (BMI >= 40) Serious obesity comorbidity presence: unspecified whether serious comorbidity present Body mass index: BMI 60.0-69.9 Qualified Code(s) : E66.01 - Morbid (severe) obesity due to excess calories; Z68.44 - Body mass index (BMI) 60.0-69.9, adult (4) CAD (coronary artery disease) Code(s): I25.10 - ATHSCL HEART DISEASE OF [place] CORONARY ARTERY W/O ANG PCTRS Qualifiers: Coronary Disease-Associated Artery/Lesion type: [place] coronary artery Associated angina: without angina pectoris (5) Chronic pain Code(s): G89.29 - OTHER CHRONIC PAIN Qualifiers: Chronic pain type: chronic pain syndrome Qualified Code(s): G89.4 - Chronic pain syndrome (6) Diabetes mellitus Code(s): E11.9 - TYPE 2 DIABETES MELLITUS WITHOUT COMPLICATIONS Qualifiers: Diabetes mellitus type: type 2 Diabetes mellitus complication detail: with chronic kidney disease Chronic kidney disease stage: stage 2 (mild) (7) Dyslipidemia Code(s): E78.5 - HYPERLIPIDEMIA, UNSPECIFIED (8) HTN (hypertension) Code(s): I10 - ESSENTIAL (PRIMARY) HYPERTENSION Qualifiers: Hypertension type: essential hypertension Qualified Code(s): I10 - Essential (primary) hypertension (9) Limb deformities, congenital Code(s): 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
[2018-01-19 08:37] LABS: ALBUMIN 2.1 g/dl (3.4-5.0); ALK PHOS 91 U/L (45-117); ANION GAP 7 MMOL/L (8-16); BILIRUBIN,TOTAL 0.4 mg/dL (0.2-1); BLOOD UREA NITROGEN 25 mg/dL (7-18); CALCIUM 7.7 mg/dL (8.5-10.1); CHLORIDE 103 mmol/L (98-107); CO2 29 mmol/L (21-32); CREATININE 1.7 mg/dL (0.55-1.3); GLUCOSE,RANDOM 155 mg/dL (74-106); POTASSIUM 4.8 mmol/L (3.5-5.1); SGOT/AST 13 U/L (15-37); SGPT/ALT 16 U/L (13-61); SODIUM 139 mmol/L (136-145); TOT PROT 5.2 g/dl (6.4-8.2)
[2018-01-19] MEDS: CALCIUM 500MG/VIT-D 200 UNITS COMBO TABLET (FP) PO SCH (08:59)
[2018-01-19] MEDS: ENOXAPARIN NA (PORCINE) 40 MG/0.4 ML DISP.SYRIN SQ SCH (08:59)
[2018-01-19] MEDS: CLOPIDOGREL BISULFATE 75 MG TABLET (FP) PO SCH (09:00)
[2018-01-19] MEDS: GABAPENTIN 300 MG CAPSULE (FP) PO SCH ×2 (09:00→21:51)
[2018-01-19] MEDS: ASPIRIN 81 MG CHEWABLE TABLETS PO SCH (09:00)
[2018-01-19] MEDS: RANITIDINE HCL 150 MG TABLET (FP) PO SCH (09:00)
[2018-01-19] MEDS: morphine SO4 SUSTAINED ACTING 30 MG TABLET.SA PO SCH ×2 (09:01→21:51)
[2018-01-19] MEDS: NYSTATIN POWDER 100,000 UNITS/GM - 15 GM TOPICAL POWDER TP SCH (09:07)
[2018-01-19] MEDS: AMMONIUM LACTATE 12% LOTION 225 GM BOTTLE TP SCH (09:08)
[2018-01-19] MEDS ORDERED: INSULIN (NOVOLOG) ASPART 100 UNITS/ML 10ML VIAL SQ ONE (17:00)
[2018-01-19] MEDS: ATORVASTATIN CA 20 MG TABLET (FP) PO SCH (21:51)
[2018-01-19] MEDS: VANCOMYCIN 1 GRAM (PRE-DOCKED) 1,000 MG/250 ML BAG IVPB SCH (21:52)
[2018-01-19] MEDS: INSULIN (LEVEMIR) 100 UNITS/ML UNITS SQ SCH (21:55)
[2018-01-19] MEDS: INSULIN SLIDING SCALE (NOVOLOG) 1 VIAL SQ SCH (22:17)
[2018-01-20] MEDS ORDERED: DEXTROSE 5%-WATER - 50 ML IVPB ONE ×3 (00:29→17:27)
[2018-01-20] MEDS ORDERED: PIPERACILLIN/TAZOBACTAM 2.25 GM VIAL IVPB ONE ×3 (00:29→17:27)
[2018-01-20] MEDS: PIPERACILLIN/TAZOB 2.25 GM 2.25 GM in DEXTROSE 5%-WATER - 50 ML IVPB SCH ×3 (02:00→17:32)
[2018-01-20] MEDS: INSULIN SLIDING SCALE (NOVOLOG) 1 VIAL SQ SCH ×4 (06:06→23:50)
--- NOTE | 2018-01-20 08:42 | PN ---
Progress Note (short form) - Note Progress Note: Vital Signs Period Temp Pulse Resp BP Sys/Gottlieb Pulse Ox Last 24 Hr 97.9 F-99.0 F 66-80 17-20 138-150/59-90 94-95 s1s2 rrr lungs cta ant morbid obesity candidiasis under breasts, armpit, abdomen legs are scaly little better chronic seropurulent discharge from right knee fistula tr edema positive pulses IMP cellulitis candidiasis morbid obesity HTN stable CAD stable DM on home insulin SANGITA resolving, almost at baseline DM PLAN iv abx as per id consult appreciated physical therapy GI/DVT prophylaxis dc planning to STR once on oral abx lac-hydrin to legs Problem List - Problems (1) SANGITA (acute kidney injury) Code(s): N17.9 - ACUTE KIDNEY FAILURE, UNSPECIFIED (2) Cellulitis Code(s): L03.90 - CELLULITIS, UNSPECIFIED Qualifiers: Site of cellulitis: extremity Site of cellulitis of extremity: lower extremity Laterality: unspecified laterality Qualified Code(s): L03.119 - Cellulitis of unspecified part of limb (3) Obesity Code(s): E66.9 - OBESITY, UNSPECIFIED Qualifiers: Obesity type: unspecified obesity type Obesity classification: adult class 3 (BMI >= 40) Serious obesity comorbidity presence: unspecified whether serious comorbidity present Body mass index: BMI 60.0-69.9 Qualified Code(s) : E66.01 - Morbid (severe) obesity due to excess calories; Z68.44 - Body mass index (BMI) 60.0-69.9, adult (4) CAD (coronary artery disease) Code(s): I25.10 - ATHSCL HEART DISEASE OF [place] CORONARY ARTERY W/O ANG PCTRS Qualifiers: Coronary Disease-Associated Artery/Lesion type: [place] coronary artery Associated angina: without angina pectoris (5) Chronic pain Code(s): G89.29 - OTHER CHRONIC PAIN Qualifiers: Chronic pain type: chronic pain syndrome Qualified Code(s): G89.4 - Chronic pain syndrome (6) Diabetes mellitus Code(s): E11.9 - TYPE 2 DIABETES MELLITUS WITHOUT COMPLICATIONS Qualifiers: Diabetes mellitus type: type 2 Diabetes mellitus complication detail: with chronic kidney disease Chronic kidney disease stage: stage 2 (mild) (7) Dyslipidemia Code(s): E78.5 - HYPERLIPIDEMIA, UNSPECIFIED (8) HTN (hypertension) Code(s): I10 - ESSENTIAL (PRIMARY) HYPERTENSION Qualifiers: Hypertension type: essential hypertension Qualified Code(s): I10 - Essential (primary) hypertension (9) Limb deformities, congenital Code(s): 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
[2018-01-20] MEDS: GABAPENTIN 300 MG CAPSULE (FP) PO SCH ×2 (09:56→23:46)
[2018-01-20] MEDS: CLOPIDOGREL BISULFATE 75 MG TABLET (FP) PO SCH (09:56)
[2018-01-20] MEDS: morphine SO4 SUSTAINED ACTING 30 MG TABLET.SA PO SCH (09:56)
[2018-01-20] MEDS: ENOXAPARIN NA (PORCINE) 40 MG/0.4 ML DISP.SYRIN SQ SCH (09:56)
[2018-01-20] MEDS: RANITIDINE HCL 150 MG TABLET (FP) PO SCH (09:56)
[2018-01-20] MEDS: ASPIRIN 81 MG CHEWABLE TABLETS PO SCH (09:56)
[2018-01-20] MEDS: CALCIUM 500MG/VIT-D 200 UNITS COMBO TABLET (FP) PO SCH (09:56)
[2018-01-20] MEDS: NYSTATIN POWDER 100,000 UNITS/GM - 15 GM TOPICAL POWDER TP SCH (10:03)
[2018-01-20] MEDS: AMMONIUM LACTATE 12% LOTION 225 GM BOTTLE TP SCH (10:05)
[2018-01-20] MEDS: morphine SULFATE IMMEDIATE RELEASE 30 MG TAB PO PRN ×3 (12:58→23:59)
[2018-01-20] MEDS ORDERED: morphine SO4 SUSTAINED ACTING 30 MG TABLET.SA PO SCH (15:52)
--- NOTE | 2018-01-20 15:57 | PN ---
Progress Note, Physician History of Present Illness: Reports less bilateral leg pain No c/o fever/ chills Tolerating antibiotics - Current Medication List Current Medications: Active Medications Aspirin (Asa -) 81 mg PO DAILY [facility] Last Admin: 01/20/18 09:56 Dose: 81 mg Atorvastatin Calcium (Lipitor -) 20 mg PO HS [facility] Last Admin: 01/19/18 21:51 Dose: 20 mg Calcium Carbonate/Cholecalciferol (Os-Jorge 500+D -) 2 tab PO DAILY [facility] Last Admin: 01/20/18 09:56 Dose: 2 tab Clopidogrel Bisulfate (Plavix -) 75 mg PO DAILY [facility] Last Admin: 01/20/18 09:56 Dose: 75 mg Enoxaparin Sodium (Lovenox -) 40 mg SQ DAILY [facility] Last Admin: 01/20/18 09:56 Dose: 40 mg Gabapentin (Neurontin -) 300 mg PO BID [facility] Last Admin: 01/20/18 09:56 Dose: 300 mg Piperacillin Sod/Tazobactam (Sod 2.25 gm/ Dextrose) 50 mls @ 100 mls/hr IVPB Q8H-IV [facility]; Protocol Last Admin: 01/20/18 09:57 Dose: 100 mls/hr Insulin Aspart (Novolog Vial Sliding Scale -) 1 vial SQ ACHS [facility]; Protocol Last Admin: 01/20/18 10:55 Dose: 2 units Insulin Detemir (Levemir Vial) 10 units SQ HS [facility] Last Admin: 01/19/18 21:55 Dose: 10 units Lactic Acid (Lac-Hydrin 12) 1 applic TP DAILY [facility] Last Admin: 01/20/18 10:05 Dose: 1 applic Morphine Sulfate (Msir -) 30 mg PO Q4H PRN PRN Reason: PAIN LEVEL 7 - 10 Last Admin: 01/20/18 12:58 Dose: 30 mg Morphine Sulfate (Ms Contin -) 40 mg PO BID [facility] Nystatin (Nystop Powder -) 1 applic TP DAILY [facility] Last Admin: 01/20/18 10:03 Dose: 1 applic Ranitidine HCl (Zantac -) 150 mg PO DAILY [facility] Last Admin: 01/20/18 09:56 Dose: 150 mg - Objective Vital Signs: Vital Signs Temperature 98.0 F 01/20/18 10:00 Pulse Rate 71 01/20/18 10:00 Respiratory Rate 18 01/20/18 10:00 Blood Pressure 113/58 L 01/20/18 10:00 O2 Sat by Pulse Oximetry (%) 96 01/20/18 10:00 Constitutional: Yes: No Distress, Obese Cardiovascular: Yes: Regular Rate and Rhythm, S1, S2 Respiratory: Yes: CTA Bilaterally Gastrointestinal: Yes: Normal Bowel Sounds, Soft. No: Tenderness Extremities: Yes: Other (Decreased LE erythema/ warmth) Edema: Yes Labs: CBC, BMP 01/19/18 06:30 01/19/18 06:30 Assessment/Plan Cellulitis LE bilaterally Chronic venous stasis dermatitis Azotemia Continue empiric zosyn Hold vancomycin
[2018-01-20] MEDS: morphine SO4 SUSTAINED ACTING 15 MG TABLET.SA PO SCH ×2 (16:17→23:45)
[2018-01-20] MEDS: ATORVASTATIN CA 20 MG TABLET (FP) PO SCH (23:45)
[2018-01-21] MEDS: INSULIN (LEVEMIR) 100 UNITS/ML UNITS SQ SCH ×2 (00:50→22:26)
[2018-01-21] MEDS ORDERED: PIPERACILLIN/TAZOBACTAM 2.25 GM VIAL IVPB ONE ×3 (03:28→17:32)
[2018-01-21] MEDS ORDERED: DEXTROSE 5%-WATER - 50 ML IVPB ONE ×3 (03:28→17:32)
[2018-01-21] MEDS: PIPERACILLIN/TAZOB 2.25 GM 2.25 GM in DEXTROSE 5%-WATER - 50 ML IVPB SCH ×3 (03:29→17:33)
[2018-01-21] MEDS: INSULIN SLIDING SCALE (NOVOLOG) 1 VIAL SQ SCH ×4 (06:14→22:28)
[2018-01-21] MEDS: morphine SULFATE IMMEDIATE RELEASE 30 MG TAB PO PRN ×4 (06:23→22:25)
--- NOTE | 2018-01-21 09:15 | PN ---
Progress Note (short form) - Note Progress Note: Vital Signs Period Temp Pulse Resp BP Sys/Gottlieb Pulse Ox Last 24 Hr 98.0 F-98.1 F 67-71 18-20 113-154/58-65 95-96 s1s2 rrr lungs cta ant morbid obesity candidiasis under breasts, armpit, abdomen legs are scaly little better chronic seropurulent discharge from right knee fistula tr edema positive pulses IMP cellulitis candidiasis morbid obesity HTN stable CAD stable DM on home insulin SANGITA resolving, almost at baseline DM PLAN iv abx as per id consult appreciated physical therapy GI/DVT prophylaxis dc planning to STR once on oral abx lac-hydrin to legs Problem List - Problems (1) SANGITA (acute kidney injury) Code(s): N17.9 - ACUTE KIDNEY FAILURE, UNSPECIFIED (2) Cellulitis Code(s): L03.90 - CELLULITIS, UNSPECIFIED Qualifiers: Site of cellulitis: extremity Site of cellulitis of extremity: lower extremity Laterality: unspecified laterality Qualified Code(s): L03.119 - Cellulitis of unspecified part of limb (3) Obesity Code(s): E66.9 - OBESITY, UNSPECIFIED Qualifiers: Obesity type: unspecified obesity type Obesity classification: adult class 3 (BMI >= 40) Serious obesity comorbidity presence: unspecified whether serious comorbidity present Body mass index: BMI 60.0-69.9 Qualified Code(s) : E66.01 - Morbid (severe) obesity due to excess calories; Z68.44 - Body mass index (BMI) 60.0-69.9, adult (4) CAD (coronary artery disease) Code(s): I25.10 - ATHSCL HEART DISEASE OF [place] CORONARY ARTERY W/O ANG PCTRS Qualifiers: Coronary Disease-Associated Artery/Lesion type: [place] coronary artery Associated angina: without angina pectoris (5) Chronic pain Code(s): G89.29 - OTHER CHRONIC PAIN Qualifiers: Chronic pain type: chronic pain syndrome Qualified Code(s): G89.4 - Chronic pain syndrome (6) Diabetes mellitus Code(s): E11.9 - TYPE 2 DIABETES MELLITUS WITHOUT COMPLICATIONS Qualifiers: Diabetes mellitus type: type 2 Diabetes mellitus complication detail: with chronic kidney disease Chronic kidney disease stage: stage 2 (mild) (7) Dyslipidemia Code(s): E78.5 - HYPERLIPIDEMIA, UNSPECIFIED (8) HTN (hypertension) Code(s): I10 - ESSENTIAL (PRIMARY) HYPERTENSION Qualifiers: Hypertension type: essential hypertension Qualified Code(s): I10 - Essential (primary) hypertension (9) Limb deformities, congenital Code(s): 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
[2018-01-21] MEDS: CALCIUM 500MG/VIT-D 200 UNITS COMBO TABLET (FP) PO SCH (09:55)
[2018-01-21] MEDS: morphine SO4 SUSTAINED ACTING 15 MG TABLET.SA PO SCH ×2 (09:55→22:26)
[2018-01-21] MEDS: ENOXAPARIN NA (PORCINE) 40 MG/0.4 ML DISP.SYRIN SQ SCH (09:55)
[2018-01-21] MEDS: GABAPENTIN 300 MG CAPSULE (FP) PO SCH ×2 (09:55→22:26)
[2018-01-21] MEDS: ASPIRIN 81 MG CHEWABLE TABLETS PO SCH (09:55)
[2018-01-21] MEDS: RANITIDINE HCL 150 MG TABLET (FP) PO SCH (09:55)
[2018-01-21] MEDS: AMMONIUM LACTATE 12% LOTION 225 GM BOTTLE TP SCH (09:59)
[2018-01-21] MEDS: NYSTATIN POWDER 100,000 UNITS/GM - 15 GM TOPICAL POWDER TP SCH (09:59)
[2018-01-21] MEDS: CLOPIDOGREL BISULFATE 75 MG TABLET (FP) PO SCH (10:03)
[2018-01-21] MEDS ORDERED: INSULIN (NOVOLOG) ASPART 100 UNITS/ML 10ML VIAL ONE (16:20)
--- NOTE | 2018-01-21 16:27 | PN ---
Progress Note, Physician History of Present Illness: Reports less bilateral leg pain No c/o fever/ chills Tolerating antibiotics Vancomycin held- level theraputic - Current Medication List Current Medications: Active Medications Aspirin (Asa -) 81 mg PO DAILY [facility] Last Admin: 01/21/18 09:55 Dose: 81 mg Atorvastatin Calcium (Lipitor -) 20 mg PO HS [facility] Last Admin: 01/20/18 23:45 Dose: 20 mg Calcium Carbonate/Cholecalciferol (Os-Jorge 500+D -) 2 tab PO DAILY [facility] Last Admin: 01/21/18 09:55 Dose: 2 tab Clopidogrel Bisulfate (Plavix -) 75 mg PO DAILY [facility] Last Admin: 01/21/18 10:03 Dose: 75 mg Enoxaparin Sodium (Lovenox -) 40 mg SQ DAILY [facility] Last Admin: 01/21/18 09:55 Dose: 40 mg Gabapentin (Neurontin -) 300 mg PO BID [facility] Last Admin: 01/21/18 09:55 Dose: 300 mg Piperacillin Sod/Tazobactam (Sod 2.25 gm/ Dextrose) 50 mls @ 100 mls/hr IVPB Q8H-IV [facility]; Protocol Last Admin: 01/21/18 09:55 Dose: 100 mls/hr Insulin Aspart (Novolog Vial Sliding Scale -) 1 vial SQ [facility]; Protocol Last Admin: 01/21/18 11:14 Dose: Not Given Insulin Detemir (Levemir Vial) 10 units SQ [facility] Last Admin: 01/21/18 00:50 Dose: 10 units Lactic Acid (Lac-Hydrin 12) 1 applic TP DAILY [facility] Last Admin: 01/21/18 09:59 Dose: 1 applic Morphine Sulfate (Msir -) 30 mg PO Q4H PRN PRN Reason: PAIN LEVEL 7 - 10 Last Admin: 01/21/18 11:16 Dose: 30 mg Morphine Sulfate (Ms Contin -) 45 mg PO BID [facility] Last Admin: 01/21/18 09:55 Dose: 45 mg Nystatin (Nystop Powder -) 1 applic TP DAILY [facility] Last Admin: 01/21/18 09:59 Dose: 1 applic Ranitidine HCl (Zantac -) 150 mg PO DAILY [facility] Last Admin: 01/21/18 09:55 Dose: 150 mg - Objective Vital Signs: Vital Signs Temperature 98.2 F 01/21/18 15:53 Pulse Rate 59 L 11/16/18 15:53 Respiratory Rate 20 01/21/18 15:53 Blood Pressure 141/68 01/21/18 15:53 O2 Sat by Pulse Oximetry (%) 96 01/21/18 10:00 Constitutional: Yes: No Distress, Obese Cardiovascular: Yes: Regular Rate and Rhythm, S1, S2 Respiratory: Yes: CTA Bilaterally Gastrointestinal: Yes: Normal Bowel Sounds, Soft, Abdomen, Obese. No: Tenderness Extremities: Yes: Other (decreased erythema LE bilaterally Minimal warmth L LE ) Edema: Yes Labs: CBC, BMP 01/19/18 06:30 01/19/18 06:30 Assessment/Plan Cellulitis LE bilaterally improved Chronic venous stasis dermatitis Azotemia improved Continue zosyn additional 24-48h then observe off
[2018-01-21] MEDS: ATORVASTATIN CA 20 MG TABLET (FP) PO SCH (22:25)
[2018-01-22] MEDS ORDERED: DEXTROSE 5%-WATER - 50 ML IVPB ONE ×3 (00:39→16:40)
[2018-01-22] MEDS ORDERED: PIPERACILLIN/TAZOBACTAM 2.25 GM VIAL IVPB ONE ×3 (00:39→16:40)
[2018-01-22] MEDS: PIPERACILLIN/TAZOB 2.25 GM 2.25 GM in DEXTROSE 5%-WATER - 50 ML IVPB SCH ×3 (02:49→17:34)
[2018-01-22] MEDS: morphine SULFATE IMMEDIATE RELEASE 30 MG TAB PO PRN ×4 (03:02→21:22)
[2018-01-22] MEDS: INSULIN SLIDING SCALE (NOVOLOG) 1 VIAL SQ SCH ×4 (06:40→21:23)
[2018-01-22 08:05] LABS: BASO % 0.4 % (0-2.0); EOS % 5.7 % (0-4.5); HEMATOCRIT 34.2 % (32.4-45.2); HEMOGLOBIN 10.8 GM/dL (10.7-15.3); LYMPH % 15.4 % (8-40); MCH 26.1 pg (25.7-33.7); MCHC 31.7 g/dl (32.0-36.0); MEAN CELL VOLUME 82.5 fl (80-96); MEAN PLT VOLUME 7.7 fl (7.5-11.1); MONO % 4.2 % (3.8-10.2); NEUT % 74.3 % (42.8-82.8); PLATELET COUNT 239 K/MM3 (134-434); RBC 4.14 M/mm3 (3.60-5.2); WHITE BLOOD COUNT 8.3 K/mm3 (4.0-10.0)
[2018-01-22 08:35] LABS: ALBUMIN 2.2 g/dl (3.4-5.0); ALK PHOS 80 U/L (45-117); ANION GAP 6 MMOL/L (8-16); BILIRUBIN,TOTAL 0.4 mg/dL (0.2-1); BLOOD UREA NITROGEN 26 mg/dL (7-18); CALCIUM 8.5 mg/dL (8.5-10.1); CHLORIDE 102 mmol/L (98-107); CO2 31 mmol/L (21-32); CREATININE 1.7 mg/dL (0.55-1.3); GLUCOSE,RANDOM 94 mg/dL (74-106); POTASSIUM 5.7 mmol/L (3.5-5.1); SGOT/AST 23 U/L (15-37); SGPT/ALT 18 U/L (13-61); SODIUM 139 mmol/L (136-145); TOT PROT 5.4 g/dl (6.4-8.2)
[2018-01-22] MEDS: morphine SO4 SUSTAINED ACTING 15 MG TABLET.SA PO SCH ×2 (10:06→22:10)
[2018-01-22] MEDS: RANITIDINE HCL 150 MG TABLET (FP) PO SCH (10:08)
[2018-01-22] MEDS: CALCIUM 500MG/VIT-D 200 UNITS COMBO TABLET (FP) PO SCH (10:08)
[2018-01-22] MEDS: GABAPENTIN 300 MG CAPSULE (FP) PO SCH ×2 (10:08→21:22)
[2018-01-22] MEDS: ASPIRIN 81 MG CHEWABLE TABLETS PO SCH (10:08)
[2018-01-22] MEDS: CLOPIDOGREL BISULFATE 75 MG TABLET (FP) PO SCH (10:08)
[2018-01-22] MEDS: ENOXAPARIN NA (PORCINE) 40 MG/0.4 ML DISP.SYRIN SQ SCH (10:08)
[2018-01-22] MEDS: NYSTATIN POWDER 100,000 UNITS/GM - 15 GM TOPICAL POWDER TP SCH (10:15)
[2018-01-22] MEDS: AMMONIUM LACTATE 12% LOTION 225 GM BOTTLE TP SCH (10:15)
--- NOTE | 2018-01-22 10:56 | PN ---
Progress Note, Physician Chief Complaint: Feels better - Current Medication List Current Medications: Active Medications Aspirin (Asa -) 81 mg PO DAILY [facility] Last Admin: 01/22/18 10:08 Dose: 81 mg Atorvastatin Calcium (Lipitor -) 20 mg PO HS [facility] Last Admin: 01/21/18 22:25 Dose: 20 mg Calcium Carbonate/Cholecalciferol (Os-Jorge 500+D -) 2 tab PO DAILY [facility] Last Admin: 01/22/18 10:08 Dose: 2 tab Clopidogrel Bisulfate (Plavix -) 75 mg PO DAILY [facility] Last Admin: 01/22/18 10:08 Dose: 75 mg Enoxaparin Sodium (Lovenox -) 40 mg SQ DAILY [facility] Last Admin: 01/22/18 10:08 Dose: 40 mg Gabapentin (Neurontin -) 300 mg PO BID [facility] Last Admin: 01/22/18 10:08 Dose: 300 mg Piperacillin Sod/Tazobactam (Sod 2.25 gm/ Dextrose) 50 mls @ 100 mls/hr IVPB Q8H-IV [facility]; Protocol Last Admin: 01/22/18 10:14 Dose: 100 mls/hr Insulin Aspart (Novolog Vial Sliding Scale -) 1 vial SQ ACHS [facility]; Protocol Last Admin: 01/22/18 06:40 Dose: 2 units Insulin Detemir (Levemir Vial) 10 units SQ HS [facility] Last Admin: 01/21/18 22:26 Dose: 10 units Lactic Acid (Lac-Hydrin 12) 1 applic TP DAILY [facility] Last Admin: 01/22/18 10:15 Dose: 1 applic Morphine Sulfate (Msir -) 30 mg PO Q4H PRN PRN Reason: PAIN LEVEL 7 - 10 Last Admin: 01/22/18 03:02 Dose: 30 mg Morphine Sulfate (Ms Contin -) 45 mg PO BID [facility] Last Admin: 01/22/18 10:06 Dose: 45 mg Nystatin (Nystop Powder -) 1 applic TP DAILY [facility] Last Admin: 01/22/18 10:15 Dose: 1 applic Ranitidine HCl (Zantac -) 150 mg PO DAILY [facility] Last Admin: 01/22/18 10:08 Dose: 150 mg - Objective Vital Signs: Vital Signs Temperature 97.3 F L 01/22/18 09:01 Pulse Rate 62 01/22/18 09:01 Respiratory Rate 16 01/22/18 09:01 Blood Pressure 140/68 01/22/18 09:01 O2 Sat by Pulse Oximetry (%) 96 01/21/18 21:00 Constitutional: Yes: No Distress Neck: Yes: Supple Cardiovascular: Yes: Regular Rate and Rhythm, S1, S2 Respiratory: Yes: CTA Bilaterally Gastrointestinal: Yes: Normal Bowel Sounds, Soft Neurological: Yes: Alert, Oriented ...Motor Strength: WNL Labs: CBC, BMP 01/22/18 07:30 01/22/18 07:30 Problem List - Problems (1) Cellulitis Assessment/Plan: Afshan Shukla. Improving. Code(s): L03.90 - CELLULITIS, UNSPECIFIED Qualifiers: Site of cellulitis: extremity Site of cellulitis of extremity: lower extremity Laterality: unspecified laterality Qualified Code(s): L03.119 - Cellulitis of unspecified part of limb
[2018-01-22] MEDS ORDERED: INSULIN (NOVOLOG) ASPART 100 UNITS/ML 10ML VIAL ONE (11:54)
[2018-01-22] MEDS ORDERED: SODIUM POLYSTYRENE SULFONATE 15 GM/60 ML BOTTLE PO ONE ×2 (17:00→17:45)
[2018-01-22] MEDS: INSULIN (LEVEMIR) 100 UNITS/ML UNITS SQ SCH (21:23)
[2018-01-22] MEDS: ATORVASTATIN CA 20 MG TABLET (FP) PO SCH (22:09)
[2018-01-23] MEDS ORDERED: DEXTROSE 5%-WATER - 50 ML IVPB ONE ×2 (01:14→10:06)
[2018-01-23] MEDS ORDERED: PIPERACILLIN/TAZOBACTAM 2.25 GM VIAL IVPB ONE ×2 (01:14→10:06)
[2018-01-23] MEDS: PIPERACILLIN/TAZOB 2.25 GM 2.25 GM in DEXTROSE 5%-WATER - 50 ML IVPB SCH ×2 (01:28→10:18)
[2018-01-23] MEDS: INSULIN SLIDING SCALE (NOVOLOG) 1 VIAL SQ SCH ×4 (06:00→21:19)
[2018-01-23] MEDS: morphine SULFATE IMMEDIATE RELEASE 30 MG TAB PO PRN ×4 (07:22→20:21)
[2018-01-23 07:59] LABS: ANION GAP 7 MMOL/L (8-16); BLOOD UREA NITROGEN 26 mg/dL (7-18); CALCIUM 8.2 mg/dL (8.5-10.1); CHLORIDE 102 mmol/L (98-107); CO2 29 mmol/L (21-32); CREATININE 1.6 mg/dL (0.55-1.3); GLUCOSE,RANDOM 98 mg/dL (74-106); POTASSIUM 5.1 mmol/L (3.5-5.1); SODIUM 138 mmol/L (136-145)
[2018-01-23] MEDS: morphine SO4 SUSTAINED ACTING 15 MG TABLET.SA PO SCH ×2 (10:17→22:35)
[2018-01-23] MEDS: ASPIRIN 81 MG CHEWABLE TABLETS PO SCH (10:18)
[2018-01-23] MEDS: GABAPENTIN 300 MG CAPSULE (FP) PO SCH ×2 (10:18→21:14)
[2018-01-23] MEDS: CALCIUM 500MG/VIT-D 200 UNITS COMBO TABLET (FP) PO SCH (10:18)
[2018-01-23] MEDS: CLOPIDOGREL BISULFATE 75 MG TABLET (FP) PO SCH (10:18)
[2018-01-23] MEDS: RANITIDINE HCL 150 MG TABLET (FP) PO SCH (10:18)
[2018-01-23] MEDS: ENOXAPARIN NA (PORCINE) 40 MG/0.4 ML DISP.SYRIN SQ SCH (10:18)
[2018-01-23] MEDS: AMMONIUM LACTATE 12% LOTION 225 GM BOTTLE TP SCH (10:20)
[2018-01-23] MEDS: NYSTATIN POWDER 100,000 UNITS/GM - 15 GM TOPICAL POWDER TP SCH (10:22)
[2018-01-23] MEDS ORDERED: INSULIN (NOVOLOG) ASPART 100 UNITS/ML 10ML VIAL ONE (11:39)
--- NOTE | 2018-01-23 17:52 | PN ---
Progress Note, Physician Chief Complaint: Feels better - Current Medication List Current Medications: Active Medications Aspirin (Asa -) 81 mg PO DAILY [facility] Last Admin: 01/23/18 10:18 Dose: 81 mg Atorvastatin Calcium (Lipitor -) 20 mg PO HS [facility] Last Admin: 01/22/18 22:09 Dose: 20 mg Calcium Carbonate/Cholecalciferol (Os-Jorge 500+D -) 2 tab PO DAILY [facility] Last Admin: 01/23/18 10:18 Dose: 2 tab Clopidogrel Bisulfate (Plavix -) 75 mg PO DAILY [facility] Last Admin: 01/23/18 10:18 Dose: 75 mg Enoxaparin Sodium (Lovenox -) 40 mg SQ DAILY [facility] Last Admin: 01/23/18 10:18 Dose: 40 mg Gabapentin (Neurontin -) 300 mg PO BID [facility] Last Admin: 01/23/18 10:18 Dose: 300 mg Insulin Aspart (Novolog Vial Sliding Scale -) 1 vial SQ [facility]; Protocol Last Admin: 01/23/18 16:27 Dose: 2 units Insulin Detemir (Levemir Vial) [address] [facility] Last Admin: 01/22/18 21:23 Dose: 10 units Lactic Acid (Lac-Hydrin 12) 1 applic TP DAILY [facility] Last Admin: 01/23/18 10:20 Dose: 1 applic Morphine Sulfate (Msir -) 30 mg PO Q4H PRN PRN Reason: PAIN LEVEL 7 - 10 Last Admin: 01/23/18 16:19 Dose: 30 mg Morphine Sulfate (Ms Contin -) 45 mg PO BID [facility] Last Admin: 01/23/18 10:17 Dose: 45 mg Nystatin (Nystop Powder -) 1 applic TP DAILY [facility] Last Admin: 01/23/18 10:22 Dose: 1 applic Ranitidine HCl (Zantac -) 150 mg PO DAILY [facility] Last Admin: 01/23/18 10:18 Dose: 150 mg - Objective Vital Signs: Vital Signs Temperature 98.2 F 01/23/18 14:00 Pulse Rate 73 01/23/18 14:00 Respiratory Rate 21 H 01/23/18 14:00 Blood Pressure 167/86 01/23/18 14:00 O2 Sat by Pulse Oximetry (%) 96 01/22/18 21:00 Constitutional: Yes: No Distress Neck: Yes: Supple Cardiovascular: Yes: Regular Rate and Rhythm, S1, S2 Respiratory: Yes: CTA Bilaterally Gastrointestinal: Yes: Normal Bowel Sounds, Soft Neurological: Yes: Alert, Oriented ...Motor Strength: WNL Labs: CBC, BMP 01/22/18 07:30 01/23/18 06:15 Problem List - Problems (1) Cellulitis Assessment/Plan: Cont Zosyn. Improving. Code(s): L03.90 - CELLULITIS, UNSPECIFIED Qualifiers: Site of cellulitis: extremity Site of cellulitis of extremity: lower extremity Laterality: unspecified laterality Qualified Code(s): L03.119 - Cellulitis of unspecified part of limb
[2018-01-23] MEDS: ATORVASTATIN CA 20 MG TABLET (FP) PO SCH (21:14)
[2018-01-23] MEDS: INSULIN (LEVEMIR) 100 UNITS/ML UNITS SQ SCH (21:18)
[2018-01-24] MEDS: morphine SULFATE IMMEDIATE RELEASE 30 MG TAB PO PRN ×4 (02:40→17:56)
[2018-01-24] MEDS: INSULIN SLIDING SCALE (NOVOLOG) 1 VIAL SQ SCH ×3 (06:10→17:16)
--- NOTE | 2018-01-24 08:47 | DS ---
Physical Examination Vital Signs: Vital Signs Temperature 97.7 F 01/24/18 06:43 Pulse Rate 64 01/24/18 06:43 Respiratory Rate 21 H 01/24/18 06:43 Blood Pressure 150/78 01/24/18 06:43 O2 Sat by Pulse Oximetry (%) 96 01/22/18 21:00 Constitutional: Yes: Calm, Obese Eyes: Yes: Conjunctiva Clear HENT: Yes: Normocephalic Neck: Yes: Trachea Midline Cardiovascular: Yes: Regular Rate and Rhythm Respiratory: Yes: CTA Bilaterally Gastrointestinal: Yes: Normal Bowel Sounds, Abdomen, Obese Extremities: Yes: Other (cheonic venous stasis and mild erythema on bilateral lower ext. Right knee fistula with chronic discharge.) Edema: Yes Edema: LLE: 1+, RLE: 1+ Integumentary: Yes: Other (candidiasis in skin folds, armpits, under breasts, abd.folds) Neurological: Yes: WNL Psychiatric: Yes: WNL Labs: CBC, BMP 01/22/18 07:30 01/23/18 06:15 Discharge Summary Reason For Visit: DIABETES MELLITUS,CELLULITIS,OBESITY Current Active Problems SANGITA (acute kidney injury) (Acute) Cellulitis (Acute) Obesity (Acute) Hospital Course: admitted after a fall at home, dehydrated with also lower extremity cellulitis, acute on chronic renal insuff. and hypoglycemia. blood cultures were negative, received iv vanco and zosyn, iv hydration with improvement. now off of abx for 24 hours, stable for dc for STR , will be on amoxicillin indefinitely due to chr. knee fistula over TKR for years. Condition: Guarded - Instructions Disposition: [facility] - Home Medications Comprehensive Discharge Medication List: Ambulatory Orders Aspirin [ASA -] 81 mg PO DAILY 10/05/13 Clopidogrel Bisulfate [Clopidogrel] 75 mg PO DAILY 10/05/13 Gabapentin 300 mg PO BID 10/05/13 Losartan Potassium 100 mg PO DAILY 10/05/13 Morphine Sulfate 30 mg PO Q4HWA 10/05/13 Simvastatin [Zocor -] 40 mg PO HS 10/05/13 Morphine *Immediate Release* [Msir -] 30 mg PO Q4H 03/15/14 Nystatin Powder [Nystop Powder -] 1 applic TP DAILY applic 10/30/14
[2018-01-24] MEDS ORDERED: LOSARTAN POTASSIUM 50 MG TABLET (FP) PO SCH (10:00)
[2018-01-24] MEDS: ENOXAPARIN NA (PORCINE) 40 MG/0.4 ML DISP.SYRIN SQ SCH (11:05)
[2018-01-24] MEDS: ASPIRIN 81 MG CHEWABLE TABLETS PO SCH (11:06)
[2018-01-24] MEDS: CLOPIDOGREL BISULFATE 75 MG TABLET (FP) PO SCH (11:06)
[2018-01-24] MEDS: GABAPENTIN 300 MG CAPSULE (FP) PO SCH (11:06)
[2018-01-24] MEDS: CALCIUM 500MG/VIT-D 200 UNITS COMBO TABLET (FP) PO SCH (11:06)
[2018-01-24] MEDS: morphine SO4 SUSTAINED ACTING 15 MG TABLET.SA PO SCH (11:06)
[2018-01-24] MEDS: RANITIDINE HCL 150 MG TABLET (FP) PO SCH (11:06)
[2018-01-24] MEDS: AMMONIUM LACTATE 12% LOTION 225 GM BOTTLE TP SCH (11:07)
[2018-01-24] MEDS: NYSTATIN POWDER 100,000 UNITS/GM - 15 GM TOPICAL POWDER TP SCH (11:45)
[2018-01-24 14:09] VITALS: BP 147/76; PULSE 65; TEMP 98.5
== END 2018-01-24 18:17 | DRG 683 ==
LOC: JER 18:21 → JERBED 21:10 → J6S 22:33
PROVIDERS: ADMIT Internal Medicine; ATTEND Internal Medicine
DX: N17.9 Acute kidney failure, unspecified (principal); Z68.44 Body mass index [BMI] 60.0-69.9, adult; B37.89 Other sites of candidiasis; M00.861 Arthritis due to other bacteria, right knee; L03.116 Cellulitis of left lower limb; L03.115 Cellulitis of right lower limb; E66.01 Morbid (severe) obesity due to excess calories; I25.10 Atherosclerotic heart disease of native coronary artery without angina pectoris; E78.5 Hyperlipidemia, unspecified; Q74.9 Unspecified congenital malformation of limb(s); G89.4 Chronic pain syndrome; E11.649 Type 2 diabetes mellitus with hypoglycemia without coma; L30.8 Other specified dermatitis; W18.30XA Fall on same level, unspecified, initial encounter; I12.9 Hypertensive chronic kidney disease with stage 1 through stage 4 chronic kidney disease, or unspecified chronic kidney disease; E11.22 Type 2 diabetes mellitus with diabetic chronic kidney disease; N18.2 Chronic kidney disease, stage 2 (mild); J44.9 Chronic obstructive pulmonary disease, unspecified; K59.00 Constipation, unspecified; Z96.651 Presence of right artificial knee joint; Y92.098 Other place in other non-institutional residence as the place of occurrence of the external cause; Z95.5 Presence of coronary angioplasty implant and graft; Z79.4 Long term (current) use of insulin
CPT/HCPCS: 36415; 71045-TC-FY; 80048; 80053; 81003; 81015; 82550; 82962; 83605; 83880; 84484; 85025; 87040; 87086; 87186; 93005; 93010; 97116-GP; 97162-GP; 99285-25; G0480; J0131; J7030

== ENCOUNTER 2018-03-29 20:30 | Inpatient (IN) | payer OTHER, MEDICARE ==
[2018-03-29 21:25] VITALS: BMI 64.0
--- NOTE | 2018-03-29 22:10 | PDOC ---
History of Present Illness - General Chief Complaint: Nausea/Vomiting Stated Complaint: Nausea/Vomiting Time Seen by Provider: 03/29/18 22:08 History Source: Patient - History of Present Illness Initial Comments: 03/29/18 22:21 72 year old female with nausea and vomiting x 2 weeks with fever 104 x 1 in the snf as per son. patient has been having bilious vomiting today with altered mental status. patient alert responsive to verbal stimuli last admuitted at this hospital in Jan 2018 and patient has been transferred to [facility] PCP at [facility]: Dr. Ding Past History - Past Medical History Allergies/Adverse Reactions: Allergies Allergy/AdvReac Type Severity Reaction Status Date / Time No Known Allergies Allergy Verified 03/30/18 03:55 Home Medications: Ambulatory Orders Aspirin [ASA -] 81 mg PO DAILY 10/05/13 Gabapentin 300 mg PO BID 10/05/13 Simvastatin [Zocor -] 40 mg PO HS 10/05/13 Morphine *Immediate Release* [Msir -] 30 mg PO Q4H 03/15/14 Calcium 500Mg/Vit-D 200 Units [Os-Jorge 500+D -] 2 tab PO DAILY tab 01/24/18 Enoxaparin [Lovenox -] 40 mg SQ DAILY disp.syrin 01/24/18 Insulin Detemir [Levemir Flextouch] 10 unit SQ HS 30 Days insuln.pen 01/24/18 Morphine *Sr* [Ms Contin -] 45 mg PO BID #60 tablet.sa MDD 90 mg 01/24/18 Ranitidine [Zantac -] 150 mg PO DAILY tablet 01/24/18 Clopidogrel Bisulfate [Plavix -] 75 mg PO DAILY 03/30/18 Docusate Sodium [Colace -] 300 mg PO DAILY 03/30/18 Insulin Lispro [Humalog] 100 unit SQ ASDIR 03/30/18 Olmesartan Medoxomil [Benicar (Nf)] 40 mg PO DAILY 03/30/18 Anemia: No Asthma: No Cancer: Yes (Uterine Cancer) Cardiac Disorders: Yes (CARDIAC STENT X2) CVA: No COPD: No CHF: No Dementia: No Diabetes: Yes GI Disorders: No Disorders: No HTN: Yes Hypercholesterolemia: Yes Liver Disease: No Seizures: No Thyroid Disease: No - Surgical History Abdominal Surgery: No Appendectomy: No Cardiac Surgery: Yes (STENTS 5 yrs ago) Cholecystectomy: Yes Lung Surgery: No Neurologic Surgery: No Orthopedic Surgery: Yes (knee replacement 2005 - knee surgeries following that ) - Suicide/Smoking/Psychosocial Hx Smoking Status: No Smoking History: Never smoked Have you smoked in the past 12 months: No Number of Cigarettes Smoked Daily: 0 If you are a former smoker, when did you quit?: 15 years ago Cigars Per Day: 0 Information on smoking cessation initiated: No 'Breaking Loose' booklet given: 03/15/14 Hx Alcohol Use: No Drug/Substance Use Hx: No Substance Use Type: None Hx Substance Use Treatment: No Review of Systems - Review of Systems Able to Perform ROS?: Yes Is the patient limited Kinyarwanda proficient: No Constitutional: Yes: Fever Respiratory: Yes: Cough ABD/GI: Yes: Nausea, Vomiting, Abdominal cramping *Physical Exam - Vital Signs Last Vital Signs Temp Pulse Resp BP Pulse Ox 10 F L 85 19 185/77 H 95 03/29/18 20:30 03/29/18 20:30 03/29/18 20:30 03/29/18 20:30 03/29/18 20:30 - Physical Exam General Appearance: Yes: Moderate Distress, Other (obese) Respiratory/Chest: positive: Rapid RR, Rales Cardiovascular: positive: Tachycardia Gastrointestinal/Abdominal: positive: Normal Bowel Sounds, Soft Extremity: positive: Normal Capillary Refill, Normal Inspection, Normal Range of Motion Integumentary: positive: Dry, Warm, Other (dry [place] ) Neurologic: positive: Alert (to verbal stimuli), Normal Mood/Affect Moderate Sedation - Procedure Monitoring Vital Signs: Procedure Monitoring Vital Signs Temperature 10 F L 03/29/18 20:30 Pulse Rate 85 03/29/18 20:30 Respiratory Rate 19 03/29/18 20:30 Blood Pressure 185/77 H 03/29/18 20:30 O2 Sat by Pulse Oximetry (%) 95 03/29/18 20:30 ED Treatment Course - LABORATORY CBC & Chemistry Diagram: 03/30/18 02:15 03/30/18 02:15 Progress Note - Progress Note Progress Note: A: sepsis; CHF exacerbation; elevated troponin P: labs lactic acid : Medical Decision Making - Medical Decision Making 03/30/18 04:43 Patient signed out to Dr. Leahy. to be admitted under Dr. Freedman service. *DC/Admit/Observation/Transfer Diagnosis at time of Disposition: Elevated troponin Sepsis Qualifiers: Sepsis type: sepsis due to unspecified organism Qualified Code(s): A41.9 - Sepsis, unspecified organism CHF exacerbation Qualifiers: Heart failure type: unspecified Qualified Code(s): I50.9 - Heart failure, unspecified Nausea & vomiting Qualifiers: Vomiting type: bilious vomiting Qualified Code(s): R11.14 - Bilious vomiting - Discharge Dispostion Condition at time of disposition: Fair Decision to Admit order: Yes - Referrals - Patient Instructions - Post Discharge Activity
[2018-03-29] MEDS ORDERED: SODIUM CHLORIDE 1,000 ML IV STA (22:21)
[2018-03-29] MEDS ORDERED: ACETAMINOPHEN 1000 MG/100 ML VIAL (NON FORMULARY) IVPB ONE ×2 (22:23→23:02)
[2018-03-29] MEDS ORDERED: ACETAMINOPHEN INJECTION 100 ML IVPB ONE (22:33)
[2018-03-29] MEDS ORDERED: ONDANSETRON 4 MG/2 ML VIAL ONE (22:33)
[2018-03-29] MEDS ORDERED: ONDANSETRON 4 MG/2 ML VIAL IVPB ONE (22:34)
[2018-03-29 23:03] LABS: ARTERIAL BLOOD GAS BASE EXCESS 1.3 meq/l (-2-2); ARTERIAL BLOOD GAS PCO2 52.9 mmHg (35-45); ARTERIAL BLOOD GAS PO2 91.4 mmHg (70-100); ARTERIAL BLOOD GAS pH 7.34 (7.35-7.45)
[2018-03-29] MEDS ORDERED: SODIUM CHLORIDE 0.9% 500 ML INFUS.BAG IV ONE (23:04)
[2018-03-29 23:19] LABS: ALLENS TEST POSITIVE
[2018-03-29] MEDS ORDERED: PIPERACILLIN/TAZOB 3.375 GM 3.375 GM in DEXTROSE 5%-WATER - 50 ML IVPB ONE (23:34)
[2018-03-30] MEDS: VANCOMYCIN 1,000 MG in DEXTROSE 5%-WATER - 250 ML IVPB SCH (00:40)
[2018-03-30] MEDS ORDERED: VANCOMYCIN 1 GRAM (PRE-DOCKED) 1,000 MG/250 ML BAG IVPB ONE ×2 (01:38→22:11)
[2018-03-30] MEDS ORDERED: PIPERACILLIN/TAZOB 3.375 GM 3.375 GM/50 ML BAG IVPB ONE ×2 (01:39→11:33)
[2018-03-30 02:23] LABS: VENOUS PC02 53.6 mmHg (38-52); VENOUS PH 7.32 (7.32-7.42); VENOUS PO2 87.3 mmHg (28-48)
[2018-03-30 02:42] LABS: BASO % 1.4 % (0-2.0); HEMATOCRIT 38.1 % (32.4-45.2); HEMOGLOBIN 12.3 GM/dL (10.7-15.3); LYMPH % 0.9 % (8-40); MCHC 32.1 g/dl (32.0-36.0); MEAN PLT VOLUME 9.2 fl (7.5-11.1); MONO % 2.2 % (3.8-10.2); NEUT % 95.5 % (42.8-82.8); PLATELET COUNT 242 K/MM3 (134-434); RBC 4.71 M/mm3 (3.60-5.2); RDW 18.3 % (11.6-15.6); WHITE BLOOD COUNT 19.7 K/mm3 (4.0-10.0)
[2018-03-30 02:59] LABS: INR 1.09 (0.83-1.09); PROTHROMBIN TIME (PATIENT) 12.9 SEC (9.7-13.0)
[2018-03-30 03:01] LABS: ACTIVATED PTT 32.5 SECONDS (25.2-36.5)
[2018-03-30 03:07] LABS: ALBUMIN 2.7 g/dl (3.4-5.0); ALK PHOS 376 U/L (45-117); ANION GAP 6 MMOL/L (8-16); BILIRUBIN,TOTAL 1.5 mg/dL (0.2-1); BLOOD UREA NITROGEN 27 mg/dL (7-18); CALCIUM 8.4 mg/dL (8.5-10.1); CHLORIDE 104 mmol/L (98-107); CO2 31 mmol/L (21-32); CREATININE 1.5 mg/dL (0.55-1.3); GLUCOSE,RANDOM 128 mg/dL (74-106); N-TERMINAL BNP 2067.2 pg/ml (5-125); POTASSIUM 4.4 mmol/L (3.5-5.1); SGOT/AST 265 U/L (15-37); SGPT/ALT 148 U/L (13-61); SODIUM 140 mmol/L (136-145); TOT PROT 5.7 g/dl (6.4-8.2)
[2018-03-30] MEDS ORDERED: SODIUM CHLORIDE 1,000 ML IV SCH ×3 (03:30→16:04)
[2018-03-30 04:04] LABS: URINE APPEARANCE CLOUDY; URINE BILIRUBIN NEGATIVE (<2.0 mg/dL); URINE COLOR AMBER; URINE GLUCOSE (UA) NEGATIVE (NEGATIVE); URINE KETONE NEGATIVE (NEGATIVE); URINE LEUK ESTERASE 3+ (NEGATIVE); URINE NITRITE POSITIVE (NEGATIVE); URINE PROTEIN 3+ (NEGATIVE); URINE UROBILINOGEN 4.0 E.U/dl mg/dL (0.2-1.0)
[2018-03-30] MEDS ORDERED: FUROSEMIDE 40 MG/4 ML INJECTABLE VIAL IVPUSH ONE (04:38)
--- NOTE | 2018-03-30 05:07 | HP ---
Admitting History and Physical - Past Medical History Cardiovascular: Yes: CAD (s/p cardiac stents, last cath in Mar 2014 showed nonobstructive disease), HTN, Hyperlipdemia Pulmonary: Yes: COPD Gastrointestinal: Yes: Constipation Infectious Disease: Yes: MRSA (h/o MRSA several years ago) Musculoskeletal: Yes: Osteoarthritis Endocrine: Yes: Diabetes Mellitus, Other (Morbid Obesity) - Past Surgical History Past Surgical History: Yes: Cholecystectomy, Hysterectomy, Joint Replacement (R knee as above) - Smoking History Smoking history: Never smoked Have you smoked in the past 12 months: No Aproximately how many cigarettes per day: 0 If you are a former smoker, when did you quit?: 15 years ago - Alcohol/Substance Use Hx Alcohol Use: No - Social History ADL: Family Assistance History of Recent Travel: No Home Medications - Allergies Allergies/Adverse Reactions: Allergies Allergy/AdvReac Type Severity Reaction Status Date / Time No Known Allergies Allergy Verified 03/30/18 03:55 - Home Medications Home Medications: Ambulatory Orders Aspirin [ASA -] 81 mg PO DAILY 10/05/13 Gabapentin 300 mg PO BID 10/05/13 Simvastatin [Zocor -] 40 mg PO HS 10/05/13 Morphine *Immediate Release* [Msir -] 30 mg PO Q4H 03/15/14 Calcium 500Mg/Vit-D 200 Units [Os-Jorge 500+D -] 2 tab PO DAILY tab 01/24/18 Enoxaparin [Lovenox -] 40 mg SQ DAILY disp.syrin 01/24/18 Insulin Detemir [Levemir Flextouch] 10 unit SQ HS 30 Days insuln.pen 01/24/18 Morphine *Sr* [Ms Contin -] 45 mg PO BID #60 tablet.sa MDD 90 mg 01/24/18 Ranitidine [Zantac -] 150 mg PO DAILY tablet 01/24/18 Clopidogrel Bisulfate [Plavix -] 75 mg PO DAILY 03/30/18 Docusate Sodium [Colace -] 300 mg PO DAILY 03/30/18 Insulin Lispro [Humalog] 100 unit SQ ASDIR 03/30/18 Olmesartan Medoxomil [Benicar (Nf)] 40 mg PO DAILY 03/30/18 Review of Systems - Review of Systems Constitutional: reports: Fever Physical Examination Vital Signs: Vital Signs Temperature 100.1 F H 03/29/18 22:20 Pulse Rate 85 03/29/18 20:30 Respiratory Rate 19 03/29/18 20:30 Blood Pressure 185/77 H 03/29/18 20:30 O2 Sat by Pulse Oximetry (%) 95 03/29/18 20:30 Labs: CBC, BMP 03/30/18 02:15 03/30/18 02:15 Problem List - Problems (1) Sepsis Code(s): A41.9 - SEPSIS, UNSPECIFIED ORGANISM Qualifiers: Sepsis type: sepsis due to unspecified organism Qualified Code(s): A41.9 - Sepsis, unspecified organism (2) CHF exacerbation Code(s): I50.9 - HEART FAILURE, UNSPECIFIED Qualifiers: Heart failure type: unspecified Qualified Code(s): I50.9 - Heart failure, unspecified (3) Elevated troponin Code(s): R74.8 - ABNORMAL LEVELS OF OTHER SERUM ENZYMES (4) Nausea & vomiting Code(s): R11.2 - NAUSEA WITH VOMITING, UNSPECIFIED Qualifiers: Vomiting type: bilious vomiting Qualified Code(s): R11.14 - Bilious vomiting (5) SANGITA (acute kidney injury) Code(s): N17.9 - ACUTE KIDNEY FAILURE, UNSPECIFIED (6) CAD (coronary artery disease) Code(s): I25.10 - ATHSCL HEART DISEASE OF [place] CORONARY ARTERY W/O ANG PCTRS (7) Diabetes mellitus Code(s): E11.9 - TYPE 2 DIABETES MELLITUS WITHOUT COMPLICATIONS (8) Dyslipidemia Code(s): E78.5 - HYPERLIPIDEMIA, UNSPECIFIED (9) HTN (hypertension) Code(s): I10 - ESSENTIAL (PRIMARY) HYPERTENSION Qualifiers:
[2018-03-30 05:16] LABS: EPI CELLS RARE /HPF (FEW); URINE BACTERIA MANY /hpf (NONE SEEN); URINE MUCUS RARE
[2018-03-30] MEDS ORDERED: FUROSEMIDE 40 MG/4 ML INJECTABLE VIAL ONE (05:23)
[2018-03-30 07:16] LABS: PLATELET ESTIMATE ADEQUATE
--- NOTE | 2018-03-30 09:36 | HP ---
Admitting History and Physical - Primary Care Physician PCP: Vinicio Leahy - Admission Chief Complaint: fever, nausea, vomiting History of Present Illness: has had a cough for two weeks. developed fever,lethargy and nausea with bilious vomiting yesterday, so was transferred to er. has been in care home since January 2018. History Source: Family Member, Medical Record Limitations to Obtaining History: Clinical Condition - Past Medical History Cardiovascular: Yes: CAD (s/p cardiac stents, last cath in Mar 2014 showed nonobstructive disease), HTN, Hyperlipdemia Pulmonary: Yes: COPD Gastrointestinal: Yes: Constipation Infectious Disease: Yes: MRSA (h/o MRSA several years ago) Musculoskeletal: Yes: Osteoarthritis Endocrine: Yes: Diabetes Mellitus, Other (Morbid Obesity) - Past Surgical History Past Surgical History: Yes: Cholecystectomy, Hysterectomy, Joint Replacement (R knee as above) - Smoking History Smoking history: Never smoked Have you smoked in the past 12 months: No Aproximately how many cigarettes per day: 0 If you are a former smoker, when did you quit?: 15 years ago - Alcohol/Substance Use Hx Alcohol Use: No - Social History ADL: Family Assistance History of Recent Travel: No Home Medications - Allergies Allergies/Adverse Reactions: Allergies Allergy/AdvReac Type Severity Reaction Status Date / Time No Known Allergies Allergy Verified 03/30/18 03:55 - Home Medications Home Medications: Ambulatory Orders Aspirin [ASA -] 81 mg PO DAILY 10/05/13 Gabapentin 300 mg PO BID 10/05/13 Simvastatin [Zocor -] 40 mg PO HS 10/05/13 Morphine *Immediate Release* [Msir -] 30 mg PO Q4H 03/15/14 Calcium 500Mg/Vit-D 200 Units [Os-Jorge 500+D -] 2 tab PO DAILY tab 01/24/18 Enoxaparin [Lovenox -] 40 mg SQ DAILY disp.syrin 01/24/18 Insulin Detemir [Levemir Flextouch] 10 unit SQ HS 30 Days insuln.pen 01/24/18 Morphine *Sr* [Ms Contin -] 45 mg PO BID #60 tablet.sa MDD 90 mg 01/24/18 Ranitidine [Zantac -] 150 mg PO DAILY tablet 01/24/18 Clopidogrel Bisulfate [Plavix -] 75 mg PO DAILY 03/30/18 Docusate Sodium [Colace -] 300 mg PO DAILY 03/30/18 Insulin Lispro [Humalog] 100 unit SQ ASDIR 03/30/18 Olmesartan Medoxomil [Benicar (Nf)] 40 mg PO DAILY 03/30/18 Family Disease History - Family Disease History Family History: Unable to Obtain Review of Systems Unable to obtain ROS, reason: lethargic Physical Examination Vital Signs: Vital Signs Temperature 98.0 F 03/30/18 08:34 Pulse Rate 67 03/30/18 08:34 Respiratory Rate 18 03/30/18 08:34 Blood Pressure 111/50 L 03/30/18 08:34 O2 Sat by Pulse Oximetry (%) 96 03/30/18 08:34 Constitutional: Yes: Obese, Poor Hygeine Eyes: Yes: Conjunctiva Clear HENT: Yes: Normocephalic Neck: Yes: Trachea Midline Cardiovascular: Yes: Regular Rate and Rhythm Respiratory: Yes: Rhonchi (bilateral scattered) Gastrointestinal: Yes: Abdomen, Obese, Other (pt is lethargic, no discrete tendereness noted) Musculoskeletal: Yes: Other (right upper extremity is contracted and atrophied) Edema: LLE: 1+, RLE: 1+ Peripheral Pulses WNL: Yes Integumentary: Yes: Other (excoriated, erythematous skin under abdominal flap, below breasts chronic eythema and stasis dermatitis over both lower extremities) Neurological: Yes: Lethargy (lethargic but arousable, recognizes me, does not follow commands) Labs: CBC, BMP 03/30/18 02:15 03/30/18 02:15 Imaging - Results Chest X-ray: Report Reviewed Cat Scan: Other (called radiology she should be able to complete) Problem List - Problems (1) CHF exacerbation Code(s): I50.9 - HEART FAILURE, UNSPECIFIED Qualifiers: Heart failure type: diastolic Qualified Code(s): I50.33 - Acute on chronic diastolic (congestive) heart failure (2) Nausea & vomiting Code(s): R11.2 - NAUSEA WITH VOMITING, UNSPECIFIED Qualifiers: Vomiting type: bilious vomiting Qualified Code(s): R11.14 - Bilious vomiting (3) Sepsis Code(s): A41.9 - SEPSIS, UNSPECIFIED ORGANISM Qualifiers: Sepsis type: sepsis due to unspecified organism Qualified Code(s): A41.9 - Sepsis, unspecified organism (4) CAD (coronary artery disease) Code(s): I25.10 - ATHSCL HEART DISEASE OF [place] CORONARY ARTERY W/O ANG PCTRS Qualifiers: Coronary Disease-Associated Artery/Lesion type: [place] artery Associated angina: without angina (5) Cellulitis Code(s): L03.90 - CELLULITIS, UNSPECIFIED Qualifiers: Site of cellulitis: extremity Site of cellulitis of extremity: lower extremity Laterality: unspecified laterality Qualified Code(s): L03.119 - Cellulitis of unspecified part of limb Assessment/Plan sepsis of unknown origin possibly intraabdominal with elevated lfts possibly skin source with cellulitis blood cultures, urine culture obtained pt received vancomycin, currently on zosyn unable to obtain abdominal imaging due to size called placed to [facility] [place] , they have bariatric ct, hopefully will be able to image abdomen hemodinamically stable CAD-serial troponins, possible cardiac strain HTN-stable DM-RISS only for now Morbid obesity keep NPO GI/DVT prophylaxis
[2018-03-30] MEDS ORDERED: ASPIRIN 81 MG CHEWABLE TABLETS PO SCH (10:00)
[2018-03-30] MEDS ORDERED: PIPERACILLIN/TAZOB 3.375 GM 3.375 GM in DEXTROSE 5%-WATER - 50 ML IVPB SCH (10:00)
[2018-03-30] MEDS ORDERED: ENOXAPARIN NA (PORCINE) 40 MG/0.4 ML DISP.SYRIN SQ SCH (10:00)
--- NOTE | 2018-03-30 10:00 | EKG ---
Test Reason : Blood Pressure : / mmHG Vent. Rate : 108 BPM Atrial Rate : 108 BPM P-R Int : 000 ms QRS Dur : 068 ms QT Int : 318 ms P-R-T Axes : 039 040 040 degrees QTc Int : 426 ms SINUS TACHYCARDIA WITH 1ST DEGREE A-V BLOCK LOW VOLTAGE QRS SEPTAL INFARCT (CITED ON OR BEFORE 29-MAR-2018) ABNORMAL ECG WHEN COMPARED WITH ECG OF 15-JAN-2018 20:59, ND INTERVAL HAS DECREASED Confirmed by VANESA PETERSON, DARIELA ([id number]) on 03/30/2018 9:59:57 AM Referred By: Confirmed By:DARIELA ALEXIS MD
--- NOTE | 2018-03-30 10:05 | CON.CARD ---
Consult Consult Specialty:: Cardiology - History of Present Illness History of Present Illness: 72 year old female with nausea and vomiting x 2 weeks with fever 104 x 1 in the skilled nursing as per son. patient has been having bilious vomiting today with altered mental status. patient alert responsive to verbal stimuli last admuitted at this hospital in Jan 2018 and patient has been transferred to [facility] - Past Medical History Cardio/Vascular: Yes: CAD (s/p cardiac stents, last cath in Mar 2014 showed nonobstructive disease), HTN, Hyperlipdemia Pulmonary: Yes: COPD Gastrointestinal: Yes: Constipation Infectious Disease: Yes: MRSA (h/o MRSA several years ago) Musculoskeletal: Yes: Osteoarthritis Endocrine: Yes: Diabetes Mellitus, Other (Morbid Obesity) - Past Surgical History Past Surgical History: Yes: Cholecystectomy, Hysterectomy, Joint Replacement (R knee as above) - Alcohol/Substance Use Hx Alcohol Use: No - Smoking History Smoking history: Never smoked Have you smoked in the past 12 months: No Aproximately how many cigarettes per day: 0 If you are a former smoker, when did you quit?: 15 years ago - Social History ADL: Family Assistance History of Recent Travel: No Home Medications - Allergies Allergies/Adverse Reactions: Allergies Allergy/AdvReac Type Severity Reaction Status Date / Time No Known Allergies Allergy Verified 03/30/18 03:55 - Home Medications Home Medications: Ambulatory Orders Aspirin [ASA -] 81 mg PO DAILY 10/05/13 Gabapentin 300 mg PO BID 10/05/13 Simvastatin [Zocor -] 40 mg PO HS 10/05/13 Morphine *Immediate Release* [Msir -] 30 mg PO Q4H 03/15/14 Calcium 500Mg/Vit-D 200 Units [Os-Jorge 500+D -] 2 tab PO DAILY tab 01/24/18 Enoxaparin [Lovenox -] 40 mg SQ DAILY disp.syrin 01/24/18 Insulin Detemir [Levemir Flextouch] 10 unit SQ HS 30 Days insuln.pen 01/24/18 Morphine *Sr* [Ms Contin -] 45 mg PO BID #60 tablet.sa MDD 90 mg 01/24/18 Ranitidine [Zantac -] 150 mg PO DAILY tablet 01/24/18 Clopidogrel Bisulfate [Plavix -] 75 mg PO DAILY 03/30/18 Docusate Sodium [Colace -] 300 mg PO DAILY 03/30/18 Insulin Lispro [Humalog] 100 unit SQ ASDIR 03/30/18 Olmesartan Medoxomil [Benicar (Nf)] 40 mg PO DAILY 03/30/18 Review of Systems - Review of Systems Constitutional: reports: No Symptoms Eyes: reports: No Symptoms HENT: reports: No Symptoms Neck: reports: No Symptoms Cardiovascular: reports: No Symptoms Gastrointestinal: reports: Nausea, Vomiting Genitourinary: reports: No Symptoms Breasts: reports: No Symptoms Reported Musculoskeletal: reports: No Symptoms Integumentary: reports: No Symptoms Neurological: reports: No Symptoms Endocrine: reports: No Symptoms Hematology/Lymphatic: reports: No Symptoms Psychiatric: reports: No Symptoms Vital Signs: Vital Signs Temperature 98.0 F 03/30/18 08:34 Pulse Rate 67 03/30/18 08:34 Respiratory Rate 18 03/30/18 08:34 Blood Pressure 111/50 L 03/30/18 08:34 O2 Sat by Pulse Oximetry (%) 96 03/30/18 08:34 Constitutional: Yes: Well Nourished, No Distress, Calm Eyes: Yes: WNL, Conjunctiva Clear, EOM Intact HENT: Yes: WNL, Atraumatic, Normocephalic Neck: Yes: WNL, Supple, Trachea Midline Respiratory: Yes: WNL, Regular, CTA Bilaterally Gastrointestinal: Yes: WNL, Normal Bowel Sounds Renal/: Yes: WNL Cardiovascular: Yes: WNL, Regular Rate and Rhythm Musculoskeletal: Yes: WNL Extremities: Yes: WNL Edema: Yes Integumentary: Yes: WNL Neurological: Yes: WNL, Alert, Oriented ...Motor Strength: WNL Psychiatric: Yes: WNL, Alert, Oriented - Other Data Labs, Other Data: CBC, BMP 03/30/18 02:15 03/30/18 02:15 INR, PTT INR 1.09 (0.83-1.09) 03/30/18 02:15 Troponin, BNP 03/30/18 02:15 Troponin I 0.09 H B-Natriuretic Peptide 2067.2 H Troponin, BNP 03/30/18 02:15 Troponin I 0.09 H B-Natriuretic Peptide 2067.2 H Laboratory Tests 03/29/18 03/29/18 03/29/18 22:26 22:55 23:11 WBC RBC Hgb Hct MCV MCH MCHC RDW Plt Count MPV Absolute Neuts (auto) Total Counted Neutrophils % Neutrophils % (Manual) Band Neutrophils % Lymphocytes % Lymphocytes % (Manual) Monocytes % Eosinophils % Basophils % Nucleated RBC % Platelet Estimate Platelet Comment PT with INR INR PTT (Actin FS) Anticoagulation Therapy No Result Required. Puncture Site Left brachial ABG pH 7.34 L ABG pCO2 at Pt Temp 52.9 H ABG pO2 at Pt Temp 91.4 ABG HCO3 27.9 H ABG O2 Sat (Measured) 94.0 ABG O2 Content 22.0 ABG Base Excess 1.3 Sergey Test Positive VBG pH POC VBG pCO2 POC VBG pO2 Mixed VBG HCO3 Carboxyhemoglobin 0.0 L Methemoglobin 0.6 O2 Delivery Device No Result Required. Oxygen Flow Rate 3l Vent Mode No Result Required. Vent Rate No Result Required. Mechanical Rate No Result Required. Pressure Support Vent No Result Required. Sodium Potassium Chloride Carbon Dioxide Anion Gap BUN Creatinine Creat Clearance w eGFR Random Glucose Lactic Acid 1.8 Calcium Total Bilirubin AST ALT Alkaline Phosphatase Creatine Kinase Troponin I B-Natriuretic Peptide Total Protein Albumin Urine Color Urine Appearance Urine pH Ur Specific [place] Urine Protein Urine Glucose (UA) Urine Ketones Urine Blood Urine Nitrite Urine Bilirubin Urine Urobilinogen Ur Leukocyte Esterase Urine WBC (Auto) Urine RBC (Auto) Ur Epithelial Cells Urine Bacteria Urine Mucus Acetone, Qual Influenza A (Rapid) Negative Influenza B (Rapid) Negative 03/30/18 03/30/18 03/30/18 01:59 02:15 02:15 WBC 19.7 H RBC 4.71 Hgb 12.3 Hct 38.1 MCV 81.0 MCH 26.0 MCHC 32.1 RDW 18.3 H Plt Count 242 MPV 9.2 D Absolute Neuts (auto) 18.8 H Total Counted 100 Neutrophils % 95.5 H D Neutrophils % (Manual) 88.0 H Band Neutrophils % 10.0 Lymphocytes % 0.9 L Lymphocytes % (Manual) 2.0 L Monocytes % 2.2 L Eosinophils % 0.0 D Basophils % 1.4 D Nucleated RBC % 0 Platelet Estimate Adequate Platelet Comment No clumping noted PT with INR 12.90 INR 1.09 PTT (Actin FS) 32.5 Anticoagulation Therapy Puncture Site ABG pH ABG pCO2 at Pt Temp ABG pO2 at Pt Temp ABG HCO3 ABG O2 Sat (Measured) ABG O2 Content ABG Base Excess Sergey Test VBG pH 7.32 POC VBG pCO2 53.6 H POC VBG pO2 87.3 H Mixed VBG HCO3 26.9 H Carboxyhemoglobin Methemoglobin O2 Delivery Device Oxygen Flow Rate Vent Mode Vent Rate Mechanical Rate Pressure Support Vent Sodium Potassium Chloride Carbon Dioxide Anion Gap BUN Creatinine Creat Clearance w eGFR Random Glucose Lactic Acid Calcium Total Bilirubin AST ALT Alkaline Phosphatase Creatine Kinase Troponin I B-Natriuretic Peptide Total Protein Albumin Urine Color Urine Appearance Urine pH Ur Specific [place] Urine Protein Urine Glucose (UA) Urine Ketones Urine Blood Urine Nitrite Urine Bilirubin Urine Urobilinogen Ur Leukocyte Esterase Urine WBC (Auto) Urine RBC (Auto) Ur Epithelial Cells Urine Bacteria Urine Mucus Acetone, Qual Influenza A (Rapid) Influenza B (Rapid) 03/30/18 03/30/18 03/30/18 02:15 02:15 02:15 WBC RBC Hgb Hct MCV MCH MCHC RDW Plt Count MPV Absolute Neuts (auto) Total Counted Neutrophils % Neutrophils % (Manual) Band Neutrophils % Lymphocytes % Lymphocytes % (Manual) Monocytes % Eosinophils % Basophils % Nucleated RBC % Platelet Estimate Platelet Comment PT with INR INR PTT (Actin FS) Anticoagulation Therapy Puncture Site ABG pH ABG pCO2 at Pt Temp ABG pO2 at Pt Temp ABG HCO3 ABG O2 Sat (Measured) ABG O2 Content ABG Base Excess Sergey Test VBG pH POC VBG pCO2 POC VBG pO2 Mixed VBG HCO3 Carboxyhemoglobin Methemoglobin O2 Delivery Device Oxygen Flow Rate Vent Mode Vent Rate Mechanical Rate Pressure Support Vent Sodium 140 Potassium 4.4 Chloride 104 Carbon Dioxide 31 Anion Gap 6 L BUN 27 H Creatinine 1.5 H Creat Clearance w eGFR 34.23 Random Glucose 128 H Lactic Acid 1.2 Calcium 8.4 L Total Bilirubin 1.5 H AST 265 H ALT 148 H Alkaline Phosphatase 376 H Creatine Kinase Troponin I 0.09 H B-Natriuretic Peptide 2067.2 H Total Protein 5.7 L Albumin 2.7 L Urine Color Urine Appearance Urine pH Ur Specific [place] Urine Protein Urine Glucose (UA) Urine Ketones Urine Blood Urine Nitrite Urine Bilirubin Urine Urobilinogen Ur Leukocyte Esterase Urine WBC (Auto) Urine RBC (Auto) Ur Epithelial Cells Urine Bacteria Urine Mucus Acetone, Qual Negative L Influenza A (Rapid) Influenza B (Rapid) 03/30/18 03/30/18 03:30 11:25 WBC RBC Hgb Hct MCV MCH MCHC RDW Plt Count MPV Absolute Neuts (auto) Total Counted Neutrophils % Neutrophils % (Manual) Band Neutrophils % Lymphocytes % Lymphocytes % (Manual) Monocytes % Eosinophils % Basophils % Nucleated RBC % Platelet Estimate Platelet Comment PT with INR INR PTT (Actin FS) Anticoagulation Therapy Puncture Site ABG pH ABG pCO2 at Pt Temp ABG pO2 at Pt Temp ABG HCO3 ABG O2 Sat (Measured) ABG O2 Content ABG Base Excess Sergey Test VBG pH POC VBG pCO2 POC VBG pO2 Mixed VBG HCO3 Carboxyhemoglobin Methemoglobin O2 Delivery Device Oxygen Flow Rate Vent Mode Vent Rate Mechanical Rate Pressure Support Vent Sodium 142 Potassium 4.8 Chloride 105 Carbon Dioxide 28 Anion Gap 8 BUN 32 H Creatinine 1.8 H Creat Clearance w eGFR 27.74 Random Glucose 135 H Lactic Acid Calcium 7.7 L Total Bilirubin 1.0 AST 177 H ALT 125 H Alkaline Phosphatase 307 H Creatine Kinase 35 Troponin I 0.04 B-Natriuretic Peptide Total Protein 5.1 L Albumin 2.3 L Urine Color Naye Urine Appearance Cloudy Urine pH 8.0 D Ur Specific [place] 1.014 Urine Protein 3+ H Urine Glucose (UA) Negative Urine Ketones Negative Urine Blood 1+ H Urine Nitrite Positive Urine Bilirubin Negative Urine Urobilinogen 4.0 e.u/dl H Ur Leukocyte Esterase 3+ H Urine WBC (Auto) 31 Urine RBC (Auto) 189 Ur Epithelial Cells Rare Urine Bacteria Many Urine Mucus Rare Acetone, Qual Influenza A (Rapid) Influenza B (Rapid) Imaging - Results Chest X-ray: Image Reviewed (cm congestion) EKG: Image Reviewed (s tachy 1 st degree av old septal mi) Problem List - Problems (1) CHF exacerbation Code(s): I50.9 - HEART FAILURE, UNSPECIFIED Qualifiers: Heart failure type: diastolic Qualified Code(s): I50.33 - Acute on chronic diastolic (congestive) heart failure (2) Elevated troponin Code(s): R74.8 - ABNORMAL LEVELS OF OTHER SERUM ENZYMES (3) Nausea & vomiting Code(s): R11.2 - NAUSEA WITH VOMITING, UNSPECIFIED Qualifiers: Vomiting type: bilious vomiting Qualified Code(s): R11.14 - Bilious vomiting (4) Sepsis Code(s): A41.9 - SEPSIS, UNSPECIFIED ORGANISM Qualifiers: Sepsis type: sepsis due to unspecified organism Qualified Code(s): A41.9 - Sepsis, unspecified organism (5) SANGITA (acute kidney injury) Code(s): N17.9 - ACUTE KIDNEY FAILURE, UNSPECIFIED (6) CAD (coronary artery disease) Code(s): I25.10 - ATHSCL HEART DISEASE OF [place] CORONARY ARTERY W/O ANG PCTRS Qualifiers: Coronary Disease-Associated Artery/Lesion type: [place] artery Associated angina: without angina (7) Cellulitis Code(s): L03.90 - CELLULITIS, UNSPECIFIED Qualifiers: Site of cellulitis: extremity Site of cellulitis of extremity: lower extremity Laterality: unspecified laterality Qualified Code(s): L03.119 - Cellulitis of unspecified part of limb (8) Chest pain Code(s): R07.9 - CHEST PAIN, UNSPECIFIED Qualifiers: Chest pain type: other chest pain Qualified Code(s): R07.89 - Other chest pain; R07.8 - Other chest pain (9) Chronic pain Code(s): G89.29 - OTHER CHRONIC PAIN Qualifiers: Chronic pain type: chronic pain syndrome Qualified Code(s): G89.4 - Chronic pain syndrome (10) Diabetes mellitus Code(s): E11.9 - TYPE 2 DIABETES MELLITUS WITHOUT COMPLICATIONS (11) Dyslipidemia Code(s): E78.5 - HYPERLIPIDEMIA, UNSPECIFIED (12) HTN (hypertension) Code(s): I10 - ESSENTIAL (PRIMARY) HYPERTENSION Qualifiers: (13) Hypothyroid Code(s): E03.9 - HYPOTHYROIDISM, UNSPECIFIED (14) Infection of knee Code(s): [id number] - (15) Limb deformities, congenital Code(s): 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 (16) Obesity Code(s): E66.9 - OBESITY, UNSPECIFIED Qualifiers: Obesity type: unspecified obesity type Obesity classification: adult class 3 (BMI >= 40) Serious obesity comorbidity presence: unspecified whether serious comorbidity present Body mass index: BMI 60.0-69.9 Qualified Code(s) : E66.01 - Morbid (severe) obesity due to excess calories; Z68.44 - Body mass index (BMI) 60.0-69.9, adult (17) Renal insufficiency, mild Code(s): N28.9 - DISORDER OF KIDNEY AND URETER, UNSPECIFIED (18) Tinea Code(s): B35.9 - DERMATOPHYTOSIS, UNSPECIFIED (19) Urinary tract infection Code(s): N39.0 - URINARY TRACT INFECTION, SITE NOT SPECIFIED Qualifiers: Urinary tract infection type: site unspecified Hematuria presence: without hematuria Qualified Code(s): N39.0 - Urinary tract infection, site not specified (20) Vertigo Code(s): R42 - DIZZINESS AND GIDDINESS Assessment/Plan sepsis of unknown origin possibly intraabdominal with elevated lfts possibly skin source with cellulitis blood cultures, urine culture obtained pt received vancomycin, currently on zosyn unable to obtain abdominal imaging due to size called placed to [facility] , they have bariatric ct, hopefully will be able to image abdomen hemodinamically stable CAD-st tni positive second nl . Probably due to sepsis doubt primary mi. will check echo HTN-stable DM-RISS only for now Morbid obesity keep NPO GI/DVT prophylaxis
[2018-03-30] MEDS ORDERED: ASPIRIN 81 MG CHEWABLE TABLETS ONE (11:08)
[2018-03-30] MEDS ORDERED: ENOXAPARIN NA (PORCINE) 40 MG/0.4 ML DISP.SYRIN SQ ONE (11:08)
[2018-03-30] MEDS: INSULIN (NOVOLOG) ASPART 100 UNITS/ML 10ML VIAL SQ SCH ×3 (11:24→21:59)
[2018-03-30] MEDS ORDERED: PANTOPRAZOLE SODIUM 40 MG/100 ML BAG IVPB ONE (11:42)
[2018-03-30] MEDS ORDERED: morphine SULFATE IMMEDIATE RELEASE 30 MG TAB ONE ×3 (11:42→22:02)
[2018-03-30] MEDS ORDERED: PANTOPRAZOLE SODIUM 40 MG VIAL IVPUSH SCH (11:45)
[2018-03-30] MEDS: morphine SULFATE IMMEDIATE RELEASE 30 MG TAB PO PRN ×2 (11:51→22:05)
[2018-03-30 11:52] LABS: HEMATOCRIT 34.7 % (32.4-45.2); HEMOGLOBIN 11.4 GM/dL (10.7-15.3); MCH 26.7 pg (25.7-33.7); MCHC 32.8 g/dl (32.0-36.0); MEAN CELL VOLUME 81.6 fl (80-96); MEAN PLT VOLUME 9.2 fl (7.5-11.1); PLATELET COUNT 215 K/MM3 (134-434); RBC 4.26 M/mm3 (3.60-5.2); RDW 18.7 % (11.6-15.6); WHITE BLOOD COUNT 15.1 K/mm3 (4.0-10.0)
[2018-03-30 12:16] LABS: ALBUMIN 2.3 g/dl (3.4-5.0); ALK PHOS 307 U/L (45-117); ANION GAP 8 MMOL/L (8-16); BLOOD UREA NITROGEN 32 mg/dL (7-18); CALCIUM 7.7 mg/dL (8.5-10.1); CHLORIDE 105 mmol/L (98-107); CO2 28 mmol/L (21-32); CREATININE 1.8 mg/dL (0.55-1.3); GLUCOSE,RANDOM 135 mg/dL (74-106); POTASSIUM 4.8 mmol/L (3.5-5.1); SGOT/AST 177 U/L (15-37); SGPT/ALT 125 U/L (13-61); SODIUM 142 mmol/L (136-145); TOT PROT 5.1 g/dl (6.4-8.2)
[2018-03-30 13:25] LABS: ANISOCYTOSIS 1+
--- NOTE | 2018-03-30 14:13 | ECHO ---
Name: MARICRUZ ESPARZA Exam:Adult Echocardiogram Study Date: 03/30/2018 11:13 AM Age: 72 yrs Reason For Study: EF Height: 62 in Weight: 350 lb BSA: 2.4 m2 MMode/2D Measurements & Calculations IVSd: 0.90 cm Ao root diam: 3.5 cm LVIDd: 5.4 cm LA dimension: 5.1 cm LVIDs: 3.2 cm ACS: 1.5 cm LVPWd: 0.94 cm IVSs: 1.2 cm LVPWs: 1.3 cm EDV(Teich): 140.8 ml ESV(Teich): 40.5 ml Doppler Measurements & Calculations MV E max omar: 91.8 cm/sec Ao V2 max: 152.0 cm/sec MV A max omar: 89.3 cm/sec Ao max P.2 mmHg MV E/A: 1.0 Ao V2 mean: 99.6 cm/sec Ao mean P.8 mmHg Ao V2 VTI: 27.7 cm Med Peak E' Omar: 6.6 cm/sec Med E/e': 13.9 Lat Peak E' Omar: 6.9 cm/sec Lat E/e': 13.3 Procedure A two-dimensional transthoracic echocardiogram with color flow and Doppler was performed. The study w as technically difficult with many images being suboptimal in quality. Left Ventricle The left ventricle is not well visualized. There is moderate concentric left ventricular hypertrophy. The left ventricular ejection fraction is normal. Regional wall motion abnormalities cannot be excluded due to limited visualization. Right Ventricle The right ventricle is not well visualized. Atria The left atrium is not well visualized. Right atrium not well visualized. Mitral Valve The mitral valve is not well visualized. Tricuspid Valve The tricuspid valve is not well visualized. Aortic Valve The aortic valve is normal in structure and function. Pulmonic Valve The pulmonic valve is not well visualized. Great Vessels The aortic root is not well visualized. Pericardium/Pleura Large pericardial effusion (>2 cm). Interpretation Summary The study was technically difficult with many images being suboptimal in quality. Large pericardial effusion (>2 cm) The left ventricle is not well visualized. There is moderate concentric left ventricular hypertrophy. The left ventricular ejection fraction is normal. Regional wall motion abnormalities cannot be excluded due to limited visualization. MD Abdon Sanchez 03/30/2018 02:12 PM
--- NOTE | 2018-03-30 16:54 | CONSULT ---
- Consultation REQUESTING PROVIDER: CONSULT REQUEST: We have been asked to surgically evaluate this patient for bilateral cellulitis LE PCP:Marleni Horner HISTORY OF PRESENT ILLNESS: 72yo F seen and examined in the ED, pt has some confusion and is a difficult historian, but pt states that she presented to the ED after developing fever and nausea with vomiting. Pt denies seeing anyone for wound care. Pt is unclear how long her legs have been red like this. PMHx: DM, HLD, HTN Home Medications Medication Instructions Recorded Aspirin [ASA -] 81 mg PO DAILY 10/05/13 Gabapentin 300 mg PO BID 10/05/13 Simvastatin [Zocor -] 40 mg PO HS 10/05/13 Morphine *Immediate Release* [Msir 30 mg PO Q4H 03/15/14 -] Calcium 500Mg/Vit-D 200 Units 2 tab PO DAILY tab 01/24/18 [Os-Jorge 500+D -] Enoxaparin [Lovenox -] 40 mg SQ DAILY disp.syrin 01/24/18 Insulin Detemir [Levemir Flextouch] 10 unit SQ HS 30 Days insuln.pen 01/24/18 Morphine *Sr* [Ms Contin -] 45 mg PO BID #60 tablet.sa MDD 90 01/24/18 mg Ranitidine [Zantac -] 150 mg PO DAILY tablet 01/24/18 Clopidogrel Bisulfate [Plavix -] 75 mg PO DAILY 03/30/18 Docusate Sodium [Colace -] 300 mg PO DAILY 03/30/18 Insulin Lispro [Humalog] 100 unit SQ ASDIR 03/30/18 Olmesartan Medoxomil [Benicar (Nf)] 40 mg PO DAILY 03/30/18 Allergies Allergy/AdvReac Type Severity Reaction Status Date / Time No Known Allergies Allergy Verified 03/30/18 03:55 PHYSICAL EXAM: GENERAL: Awake, alert, confused, in no acute distress. HEAD: Normal with no signs of trauma. EYES: PERRL, sclera anicteric, conjunctiva clear. NECK: Normal ROM HEART: Regular rate and rhythm. ABDOMEN: Soft, nontender, not distended, normoactive bowel sounds, no guarding, no rebound, no masses. No organomegaly. Morbidly obese UPPER EXTREMITIES: 2+ pulses, warm, well-perfused. No cyanosis. Cap refill <2 seconds. No peripheral edema. LOWER EXTREMITIES: 2+ pulses, warm, well-perfused. No calf tenderness.+1 edema, circumferential erythema on lower legs bilaterally. NEUROLOGICAL: Normal speech, gait not observed. PSYCH: Cooperative. Good eye contact. Appropriate mood and affect. SKIN: Warm, dry, normal turgor, no rashes or lesions noted. Vital Signs Temperature 98.0 F 03/30/18 08:34 Pulse Rate 57 L 03/30/18 14:05 Respiratory Rate 18 03/30/18 14:05 Blood Pressure 108/53 L 03/30/18 14:05 O2 Sat by Pulse Oximetry (%) 97 03/30/18 14:05 Lab Results WBC 15.1 K/mm3 (4.0-10.0) H 03/30/18 11:25 RBC 4.26 M/mm3 (3.60-5.2) 03/30/18 11:25 Hgb 11.4 GM/dL (10.7-15.3) 03/30/18 11:25 Hct 34.7 % (32.4-45.2) 03/30/18 11:25 MCV 81.6 fl (80-96) 03/30/18 11:25 MCHC 32.8 g/dl (32.0-36.0) 03/30/18 11:25 RDW 18.7 % (11.6-15.6) H 03/30/18 11:25 Plt Count 215 K/MM3 (134-434) 03/30/18 11:25 Sodium 142 mmol/L (136-145) 03/30/18 11:25 Potassium 4.8 mmol/L (3.5-5.1) 03/30/18 11:25 Chloride 105 mmol/L (98-107) 03/30/18 11:25 Carbon Dioxide 28 mmol/L (21-32) 03/30/18 11:25 Anion Gap 8 MMOL/L (8-16) 03/30/18 11:25 BUN 32 mg/dL (7-18) H 03/30/18 11:25 Creatinine 1.8 mg/dL (0.55-1.3) H 03/30/18 11:25 Random Glucose 135 mg/dL (74-106) H 03/30/18 11:25 Calcium 7.7 mg/dL (8.5-10.1) L 03/30/18 11:25 INR 1.09 (0.83-1.09) 03/30/18 02:15 Problem List - Problems (1) Cellulitis Assessment/Plan: Plan -no signs of acute vascular issue no need for surgical evaluation at this time. -needs abx as per Med/ID Code(s): L03.90 - CELLULITIS, UNSPECIFIED Qualifiers: Site of cellulitis: extremity Site of cellulitis of extremity: lower extremity Laterality: unspecified laterality Qualified Code(s): L03.119 - Cellulitis of unspecified part of limb
--- NOTE | 2018-03-30 17:14 | PN ---
Progress Note (short form) - Note Progress Note: PULMONARY CONSULTATION DICTATED 03/30/18 IMP ACUTE HYPOXEMIC/HYPERCAPNEIC RESPIRATORY FAILURE ABD PAIN/N/V FEVER LARGE PERICARDIAL EFFUSION CHF COPD ACUTE ON CHRONIC KIDNEY INJURY CELLULITIS DM ASHD S/P STENTS HTN ELEVATED LFTS LIKELY OSAS PLAN O2 INHALED BRONCHODILATORS ABX PER ID GI EVALUATION THORACIC SURGERY EVALUATION REGARDING PERICARDIAL EFFUSION MONITOR LYTES,RENAL FUNCTION TREND LFTS DR PIERSON Problem List - Problems (1) Pericardial effusion Code(s): I31.3 - PERICARDIAL EFFUSION (NONINFLAMMATORY) (2) CHF exacerbation Code(s): I50.9 - HEART FAILURE, UNSPECIFIED Qualifiers: Heart failure type: diastolic Qualified Code(s): I50.33 - Acute on chronic diastolic (congestive) heart failure (3) Nausea & vomiting Code(s): R11.2 - NAUSEA WITH VOMITING, UNSPECIFIED Qualifiers: Vomiting type: bilious vomiting Qualified Code(s): R11.14 - Bilious vomiting (4) CAD (coronary artery disease) Code(s): I25.10 - ATHSCL HEART DISEASE OF [place] CORONARY ARTERY W/O ANG PCTRS Qualifiers: Coronary Disease-Associated Artery/Lesion type: [place] artery Associated angina: without angina (5) Cellulitis Code(s): L03.90 - CELLULITIS, UNSPECIFIED Qualifiers: Site of cellulitis: extremity Site of cellulitis of extremity: lower extremity Laterality: unspecified laterality Qualified Code(s): L03.119 - Cellulitis of unspecified part of limb (6) Diabetes mellitus Code(s): E11.9 - TYPE 2 DIABETES MELLITUS WITHOUT COMPLICATIONS (7) HTN (hypertension) Code(s): I10 - ESSENTIAL (PRIMARY) HYPERTENSION Qualifiers: (8) Hypothyroid Code(s): E03.9 - HYPOTHYROIDISM, UNSPECIFIED (9) Obesity Code(s): E66.9 - OBESITY, UNSPECIFIED Qualifiers: Obesity type: unspecified obesity type Obesity classification: adult class 3 (BMI >= 40) Serious obesity comorbidity presence: unspecified whether serious comorbidity present Body mass index: BMI 60.0-69.9 Qualified Code(s) : E66.01 - Morbid (severe) obesity due to excess calories; Z68.44 - Body mass index (BMI) 60.0-69.9, adult (10) [id number] kidney injury Code(s): N17.9 - ACUTE KIDNEY FAILURE, UNSPECIFIED; N18.9 - CHRONIC KIDNEY DISEASE, UNSPECIFIED (11) Acute respiratory failure with hypoxia and hypercapnia Code(s): J96.01 - ACUTE RESPIRATORY FAILURE WITH HYPOXIA; J96.02 - ACUTE RESPIRATORY FAILURE WITH HYPERCAPNIA (12) Pericardial effusion Code(s): I31.3 - PERICARDIAL EFFUSION (NONINFLAMMATORY)
[2018-03-30] MEDS ORDERED: PIPERACILLIN/TAZOB 4.5 GM 4.5 GM in DEXTROSE 5%-WATER 100 ML IVPB SCH (18:00)
--- NOTE | 2018-03-30 18:59 | CONS ---
DATE OF CONSULTATION: 03/30/2018 PULMONARY CONSULTATION REFERRING PHYSICIAN: Marleni Horner M.D. HISTORY OF PRESENT ILLNESS: The patient is a 72-year-old white female with past medical history of ASHD status post stent, last catheter 2014 showed nonobstructive disease, hypertension, hyperlipidemia, morbid obesity, COPD, osteoarthritis, MRSA, diabetes, cholecystectomy, right knee replacement, history of smoking, quit approximately 15 years ago, admitted to [facility] from [facility] secondary to fever, lethargy, nausea, and bilious vomiting x1 day. Patient apparently at the [place] [facility] started to feel the above symptoms. She also noted increasing lower extremity swelling and erythema. Blood cultures were obtained in the ER. Patient was placed on broad spectrum antibiotics. Of note, the patient has been complaining of wheezing for the past few days. She has a minimal cough which is nonproductive. There are no chest pains or palpitations. Patient underwent an echo in the emergency room which revealed large pericardial effusion, left ventricular ejection fraction was normal with moderate concentric left ventricular hypertrophy. PAST MEDICAL HISTORY: Again includes ASHD status post stents, morbid obesity, history of uterine CA, COPD, hypertension, diabetes, hyperlipidemia, MRSA, osteoarthritis. REVIEW OF SYSTEMS: Positive nausea. Positive vomiting. No chest pain. Positive cough. Positive wheezing. Positive fever. No hemoptysis. No diarrhea. Positive lower extremity edema. Positive erythema lower extremities. MEDICATION: Prior to admission include aspirin, gabapentin, Zocor, morphine, Lovenox, insulin, morphine, ranitidine, Plavix, Colace, Humalog, Benicar. CURRENT MEDICATIONS: Include Zosyn, vancomycin, Lovenox, aspirin, and Protonix. PHYSICAL EXAMINATION: GENERAL: The patient is a morbidly obese female, alert, awake, in no acute distress. She is afebrile. VITAL SIGNS: Blood pressure 108/53, respiratory rate 18, O2 saturation 97% on 3 L. HEENT: Normocephalic, atraumatic. NECK: Supple. HEART: Regular S1, S2. CHEST: A few scattered bilateral wheezes. ABDOMEN: Soft, bowel sounds positive. EXTREMITIES: Bilateral extremity edema and erythema. LABORATORY: WBC is 15.1, hemoglobin 11.4, hematocrit 34.7, platelet count of 215,000, INR is 1.09. Blood gas: pH 7.34, pCO2 of 52, pO2 of 91, bicarbonate 27, saturation 94% on 3 L nasal cannula. BUN 32, creatinine 1.8. LFTs: AST 177, ALT 125, alkaline phosphatase 307, BNP 2067. Chest x-ray reveals cardiomegaly, possibly mild pulmonary vascular congestion. IMPRESSION: Acute hypercapnic, hypoxemic respiratory failure secondary to multiple factors. 1. Likely some mild decompensated congestive heart failure. 2. Chronic obstructive pulmonary disease. 3. Abdominal pain, elevate liver function tests, rule out cholecystitis, rule out viral syndrome. 4. Diabetes mellitus. 5. Morbid obesity. 6. Arteriosclerotic heart disease status post stents. 7. Large pericardial effusion. 8. Cellulitis. 9. Acute on chronic kidney injury. PLAN: IV antibiotics as per infectious disease. Blood cultures, obtain cultures. Supplemental O2. Inhaled bronchodilators as needed Lasix. Monitor renal function. Consider thoracic surgical consultation for evaluation of pericardial effusion. Consider ICU monitoring. GI evaluation. Monitor LFTs. DALILA PIERSON M.D. [id number]
[2018-03-30] MEDS ORDERED: PIPERACILLIN/TAZOB 4.5 GM 4.5 GM/100 ML BAG IVPB ONE (20:16)
[2018-03-30] MEDS: PIPERACILLIN/TAZOB 4.5 GM 4.5 GM in DEXTROSE 5%-WATER 100 ML IVPB SCH (21:40)
[2018-03-31] MEDS: VANCOMYCIN 1,000 MG in DEXTROSE 5%-WATER - 250 ML IVPB SCH (01:37)
[2018-03-31] MEDS ORDERED: PIPERACILLIN/TAZOB 4.5 GM 4.5 GM/100 ML BAG IVPB ONE (03:05)
[2018-03-31] MEDS: PIPERACILLIN/TAZOB 4.5 GM 4.5 GM in DEXTROSE 5%-WATER 100 ML IVPB SCH (03:10)
[2018-03-31] MEDS ORDERED: morphine SULFATE IMMEDIATE RELEASE 30 MG TAB ONE (03:27)
[2018-03-31] MEDS: morphine SULFATE IMMEDIATE RELEASE 30 MG TAB PO PRN (03:30)
[2018-03-31 03:39] VITALS: TEMP 98.9
[2018-03-31 05:20] VITALS: BP 159/95; PULSE 67
[2018-03-31] MEDS ORDERED: VANCOMYCIN 1 GRAM (PRE-DOCKED) 1,000 MG/250 ML BAG IVPB SCH (23:45)
== END 2018-03-31 07:30 | disposition short-term general hospital (02) | DRG 871 ==
LOC: JER 20:30 → JERBED 03-30 04:42 → J2W 03-31 04:47
PROVIDERS: ADMIT Internal Medicine; ATTEND Internal Medicine
DX: A41.9 Sepsis, unspecified organism (principal); I50.33 Acute on chronic diastolic (congestive) heart failure; J96.01 Acute respiratory failure with hypoxia; J96.02 Acute respiratory failure with hypercapnia; Z68.44 Body mass index [BMI] 60.0-69.9, adult; I31.3 Pericardial effusion (noninflammatory); N39.0 Urinary tract infection, site not specified; L03.116 Cellulitis of left lower limb; L03.115 Cellulitis of right lower limb; I25.10 Atherosclerotic heart disease of native coronary artery without angina pectoris; J44.9 Chronic obstructive pulmonary disease, unspecified; K59.00 Constipation, unspecified; E11.9 Type 2 diabetes mellitus without complications; E66.01 Morbid (severe) obesity due to excess calories; E78.5 Hyperlipidemia, unspecified; K81.9 Cholecystitis, unspecified; G47.33 Obstructive sleep apnea (adult) (pediatric); I11.0 Hypertensive heart disease with heart failure; R11.14 Bilious vomiting; G89.4 Chronic pain syndrome; E03.9 Hypothyroidism, unspecified; B96.4 Proteus (mirabilis) (morganii) as the cause of diseases classified elsewhere; R94.5 Abnormal results of liver function studies; Z95.5 Presence of coronary angioplasty implant and graft; Z96.659 Presence of unspecified artificial knee joint
CPT/HCPCS: 36415; 36600; 71045-TC-FY; 80053; 81003; 81015; 82009; 82375; 82550; 82803; 82962; 83050; 83605; 83880; 84484; 85025; 85610; 85730; 87040; 87086; 87186; 87804; 93005; 93010; 93306-TC; 99285-25; J0131; J7030

== ENCOUNTER 2018-04-13 00:35 | Inpatient (IN) | payer OTHER, MEDICARE ==
--- NOTE | 2018-04-13 04:29 | PDOC ---
History of Present Illness - General History Source: Family, Longterm Records Exam Limitations: No Limitations - History of Present Illness Initial Comments: 04/13/18 05:15 The patient is a 72 year old female, with a significant past medical history of HTN, HLD, DM, morbid obesity, and recent admission for sepsis (was transferred to [facility] for further care), who presents to the emergency department via EMS from [facility], [place]. Patients son at bedside notes, today she was increasingly lethargic and short of breath, prompting her arrival. As per [facility], the patient was O2 saturation was 84-88% on room air. History was obtained by son at bedside and via NH secondary to patients lethargy. Allergies: NKDA <Herbert Harden - Last Filed: 04/13/18 06:34> <Hafsa Gordon - Last Filed: 04/13/18 06:44> - General Chief Complaint: Shortness of Breath Stated Complaint: S.O.B. Time Seen by Provider: 04/13/18 04:23 Past History <Herbert Harden - Last Filed: 04/13/18 06:34> - Past Medical History Anemia: No Asthma: No Cancer: Yes (Uterine Cancer) Cardiac Disorders: Yes (CARDIAC STENT X2) CVA: No COPD: No CHF: No Dementia: No Diabetes: Yes GI Disorders: No Disorders: No HTN: Yes Hypercholesterolemia: Yes Liver Disease: No Seizures: No Thyroid Disease: No - Surgical History Abdominal Surgery: No Appendectomy: No Cardiac Surgery: Yes (STENTS 5 yrs ago) Cholecystectomy: Yes Lung Surgery: No Neurologic Surgery: No Orthopedic Surgery: Yes (knee replacement 2005 - knee surgeries following that ) - Immunization History Immunization Up to Date: Yes - Suicide/Smoking/Psychosocial Hx Smoking Status: No Smoking History: Never smoked Have you smoked in the past 12 months: No Number of Cigarettes Smoked Daily: 0 If you are a former smoker, when did you quit?: 15 years ago Cigars Per Day: 0 Information on smoking cessation initiated: No 'Breaking Loose' booklet given: 03/15/14 Hx Alcohol Use: No Drug/Substance Use Hx: No Substance Use Type: None Hx Substance Use Treatment: No <Hafsa Gordon - Last Filed: 04/13/18 06:44> - Past Medical History Allergies/Adverse Reactions: Allergies Allergy/AdvReac Type Severity Reaction Status Date / Time No Known Allergies Allergy Verified 04/13/18 01:11 Home Medications: Ambulatory Orders Aspirin [ASA -] 81 mg PO DAILY 10/05/13 Gabapentin 300 mg PO BID 10/05/13 Simvastatin [Zocor -] 40 mg PO HS 10/05/13 Morphine *Immediate Release* [Msir -] 30 mg PO Q4H 03/15/14 Calcium 500Mg/Vit-D 200 Units [Os-Jorge 500+D -] 2 tab PO DAILY tab 01/24/18 Enoxaparin [Lovenox -] 40 mg SQ DAILY disp.syrin 01/24/18 Insulin Detemir [Levemir Flextouch] 10 unit SQ HS 30 Days insuln.pen 01/24/18 Morphine *Sr* [Ms Contin -] 45 mg PO BID #60 tablet.sa MDD 90 mg 01/24/18 Ranitidine [Zantac -] 150 mg PO DAILY tablet 01/24/18 Clopidogrel Bisulfate [Plavix -] 75 mg PO DAILY 03/30/18 Docusate Sodium [Colace -] 300 mg PO DAILY 03/30/18 Insulin Lispro [Humalog] 100 unit SQ ASDIR 03/30/18 Olmesartan Medoxomil [Benicar (Nf)] 40 mg PO DAILY 03/30/18 Review of Systems - Review of Systems Able to Perform ROS?: No Comments:: 04/13/18 05:16 Unable to perform an ROS secondary to patient's lethargy. <Herbert Harden - Last Filed: 04/13/18 06:34> *Physical Exam - Vital Signs Last Vital Signs Temp Pulse Resp BP Pulse Ox 98.7 F 72 19 142/66 97 04/13/18 00:35 04/13/18 00:35 04/13/18 00:35 04/13/18 00:35 04/13/18 00:35 <Herbert Harden - Last Filed: 04/13/18 06:34> - Vital Signs Last Vital Signs Temp Pulse Resp BP Pulse Ox 98.7 F 72 19 142/66 97 04/13/18 00:35 04/13/18 00:35 04/13/18 00:35 04/13/18 00:35 04/13/18 00:35 <Hafsa Gordon - Last Filed: 04/13/18 06:44> Moderate Sedation - Procedure Monitoring Vital Signs: Procedure Monitoring Vital Signs Temperature 98.7 F 04/13/18 00:35 Pulse Rate 72 04/13/18 00:35 Respiratory Rate 19 04/13/18 00:35 Blood Pressure 142/66 04/13/18 00:35 O2 Sat by Pulse Oximetry (%) 97 04/13/18 00:35 <Herbert Harden - Last Filed: 04/13/18 06:34> - Procedure Monitoring Vital Signs: Procedure Monitoring Vital Signs Temperature 98.7 F 04/13/18 00:35 Pulse Rate 72 04/13/18 00:35 Respiratory Rate 19 04/13/18 00:35 Blood Pressure 142/66 04/13/18 00:35 O2 Sat by Pulse Oximetry (%) 97 04/13/18 00:35 <Hafsa Gordon - Last Filed: 04/13/18 06:44> ED Treatment Course - LABORATORY CBC & Chemistry Diagram: 04/13/18 05:20 04/13/18 05:20 <Herbert Harden - Last Filed: 04/13/18 06:34> - LABORATORY CBC & Chemistry Diagram: 04/13/18 05:20 04/13/18 05:20 <Hafsa Gordon - Last Filed: 04/13/18 06:44> Medical Decision Making - Medical Decision Making 04/13/18 06:34 ICU paged, case discussed with Dr. Cordon, circulation man ICU resident. Call placed to Dr. Leahy's answering service, awaiting call back. <Herbert Harden - Last Filed: 04/13/18 06:34> *DC/Admit/Observation/Transfer - Attestations Scribe Attestion: 04/13/18 05:16 Documentation prepared by Herbert Harden, acting as chief medical technologist for Hafsa Gordon DO. <Herbert Harden - Last Filed: 04/13/18 06:34> - Discharge Dispostion Decision to Admit order: Yes <Hafsa Gordon - Last Filed: 04/13/18 06:44> Diagnosis at time of Disposition: COPD exacerbation, CHF exacerbation, Obesity, Acute respiratory failure with hypoxia and hypercapnia, CAD (coronary artery disease) - Discharge Dispostion Condition at time of disposition: Fair - Referrals Referrals: Vinicio Leahy MD [Primary Care Provider] - - Patient Instructions - Post Discharge Activity
[2018-04-13] MEDS ORDERED: ALBUTEROL SO4 2.5/IPRATROPIUM 0.5 INH SOL 3 ML VIAL.NEB. NEB ONE ×2 (05:53→08:25)
[2018-04-13 05:57] LABS: HEMATOCRIT 33.3 % (32.4-45.2); MCH 27.1 pg (25.7-33.7); MEAN CELL VOLUME 82.2 fl (80-96); MEAN PLT VOLUME 8.6 fl (7.5-11.1); PLATELET COUNT 224 K/MM3 (134-434); RBC 4.05 M/mm3 (3.60-5.2); RDW 18.5 % (11.6-15.6); WHITE BLOOD COUNT 9.1 K/mm3 (4.0-10.0)
[2018-04-13 06:09] LABS: INR 1.06 (0.83-1.09); PROTHROMBIN TIME (PATIENT) 12.5 SEC (9.7-13.0)
[2018-04-13 06:10] LABS: ARTERIAL BLOOD GAS BASE EXCESS 2.6 meq/l (-2-2); ARTERIAL BLOOD GAS PO2 97.4 mmHg (70-100)
[2018-04-13 06:11] LABS: ALLENS TEST POSITIVE
[2018-04-13 06:12] LABS: ARTERIAL BLOOD GAS PCO2 78.8 mmHg (35-45); ARTERIAL BLOOD GAS pH 7.23 (7.35-7.45)
[2018-04-13 06:29] LABS: ALBUMIN 2.5 g/dl (3.4-5.0); ALK PHOS 141 U/L (45-117); ANION GAP 3 MMOL/L (8-16); BILIRUBIN,TOTAL 0.5 mg/dL (0.2-1); BLOOD UREA NITROGEN 23 mg/dL (7-18); CALCIUM 7.8 mg/dL (8.5-10.1); CHLORIDE 103 mmol/L (98-107); CO2 34 mmol/L (21-32); CREATININE 1.8 mg/dL (0.55-1.3); GLUCOSE,RANDOM 106 mg/dL (74-106); MAGNESIUM 2.2 mg/dL (1.8-2.4); PHOSPHOROUS 5.1 mg/dL (2.5-4.9); SGOT/AST 14 U/L (15-37); SGPT/ALT 14 U/L (13-61); SODIUM 139 mmol/L (136-145); TOT PROT 5.8 g/dl (6.4-8.2)
[2018-04-13] MEDS ORDERED: methylPREDNISolone NA SUCC 125 MG/2 ML VIAL IVPUSH ONE (08:25)
--- NOTE | 2018-04-13 10:09 | HP ---
Admitting History and Physical - Primary Care Physician PCP: Vinicio Leahy - Admission Chief Complaint: lethargy, altered mental status History of Present Illness: transferred from [facility] for altered MS was here last week with e.coli sepsis-transferred to [facility] for further care, we were unable to image her due to morbid obesity she has been at [facility] for less than a week on iv abx mentation has been ok, but with intermittent confusion yesterday became more lethargic History Source: Family Member Limitations to Obtaining History: Clinical Condition - Past Medical History Cardiovascular: Yes: CAD (s/p cardiac stents, last cath in Mar 2014 showed nonobstructive disease), HTN, Hyperlipdemia Pulmonary: Yes: COPD Gastrointestinal: Yes: Constipation Infectious Disease: Yes: MRSA (h/o MRSA several years ago) Musculoskeletal: Yes: Osteoarthritis Endocrine: Yes: Diabetes Mellitus, Other (Morbid Obesity) - Past Surgical History Past Surgical History: Yes: Cholecystectomy, Hysterectomy, Joint Replacement (R knee as above) - Smoking History Smoking history: Never smoked Have you smoked in the past 12 months: No Aproximately how many cigarettes per day: 0 If you are a former smoker, when did you quit?: 15 years ago - Alcohol/Substance Use Hx Alcohol Use: No - Social History ADL: Family Assistance History of Recent Travel: No Home Medications - Allergies Allergies/Adverse Reactions: Allergies Allergy/AdvReac Type Severity Reaction Status Date / Time metoprolol Allergy Verified 04/13/18 07:23 metronidazole Allergy Verified 04/13/18 07:23 - Home Medications Home Medications: Ambulatory Orders Aspirin [ASA -] 81 mg PO DAILY 10/05/13 Gabapentin 300 mg PO BID 10/05/13 Simvastatin [Zocor -] 40 mg PO HS 10/05/13 Morphine *Immediate Release* [Msir -] 30 mg PO Q4H 03/15/14 Calcium 500Mg/Vit-D 200 Units [Os-Jorge 500+D -] 2 tab PO DAILY tab 01/24/18 Enoxaparin [Lovenox -] 40 mg SQ DAILY disp.syrin 01/24/18 Insulin Detemir [Levemir Flextouch] 10 unit SQ HS 30 Days insuln.pen 01/24/18 Morphine *Sr* [Ms Contin -] 45 mg PO BID #60 tablet.sa MDD 90 mg 11/19/18 Ranitidine [Zantac -] 150 mg PO DAILY tablet 01/24/18 Clopidogrel Bisulfate [Plavix -] 75 mg PO DAILY 03/30/18 Docusate Sodium [Colace -] 300 mg PO DAILY 03/30/18 Insulin Lispro [Humalog] 100 unit SQ ASDIR 03/30/18 Olmesartan Medoxomil [Benicar (Nf)] 40 mg PO DAILY 03/30/18 Family Disease History - Family Disease History Family History: Unable to Obtain Review of Systems Unable to obtain ROS, reason: lethargic Physical Examination Vital Signs: Vital Signs Temperature 100.2 F H 04/13/18 09:57 Pulse Rate 77 04/13/18 09:17 Respiratory Rate 16 04/13/18 09:17 Blood Pressure 118/91 04/13/18 09:17 O2 Sat by Pulse Oximetry (%) 97 04/13/18 09:15 Constitutional: Yes: Calm, Obese Eyes: Yes: EOM Intact HENT: Yes: Normocephalic Neck: Yes: Trachea Midline Cardiovascular: Yes: Regular Rate and Rhythm Respiratory: Yes: Rhonchi (scattered rhonchi) Gastrointestinal: Yes: Normal Bowel Sounds, Soft Musculoskeletal: Yes: Other (chronic arthroapthy right knee fistula scabbed over at present, no drainage) Extremities: Yes: Other (right arm contracted, atrophic) Edema: LLE: 1+, RLE: 1+ Peripheral Pulses WNL: Yes Integumentary: Yes: Other (extensive erythema under abd apron and groin-better that last week rigth lower ext chr stasis dermatitis, with some dependent erythema scaly heels) Neurological: Yes: Other (arousable oriented to person only moves all 4 ext. equally myoclonic jerks noted at times) Psychiatric: Yes: Other Labs: CBC, BMP 04/13/18 05:20 04/13/18 05:20 Imaging - Results X-ray: Report Reviewed Problem List - Problems (1) Acute respiratory failure with hypoxia and hypercapnia Code(s): J96.01 - ACUTE RESPIRATORY FAILURE WITH HYPOXIA; J96.02 - ACUTE RESPIRATORY FAILURE WITH HYPERCAPNIA (2) CAD (coronary artery disease) Code(s): I25.10 - ATHSCL HEART DISEASE OF [place] CORONARY ARTERY W/O ANG PCTRS Qualifiers: Coronary Disease-Associated Artery/Lesion type: lummi artery Associated angina: without angina (3) Obesity Code(s): E66.9 - OBESITY, UNSPECIFIED Qualifiers: Obesity type: due to excess calories Obesity classification: adult class 3 (BMI >= 40) Body mass index: BMI 60.0-69.9 (4) SANGITA (acute kidney injury) Code(s): N17.9 - ACUTE KIDNEY FAILURE, UNSPECIFIED (5) Cellulitis Code(s): L03.90 - CELLULITIS, UNSPECIFIED Qualifiers: Site of cellulitis: extremity Site of cellulitis of extremity: lower extremity Laterality: right Qualified Code(s): L03.115 - Cellulitis of right lower limb (6) Chronic pain Code(s): G89.29 - OTHER CHRONIC PAIN Qualifiers: Chronic pain type: chronic pain syndrome Qualified Code(s): G89.4 - Chronic pain syndrome (7) Diabetes mellitus Code(s): E11.9 - TYPE 2 DIABETES MELLITUS WITHOUT COMPLICATIONS Qualifiers: Diabetes mellitus type: type 2 Diabetes mellitus route inspector insulin use: with halfway use (8) Limb deformities, congenital Code(s): 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
[2018-04-13] MEDS ORDERED: ERTAPENEM SODIUM 1 GM in SODIUM CHLORIDE 50 ML IVPB SCH (10:15)
--- NOTE | 2018-04-13 10:39 | PN ---
Progress Note (short form) - Note Progress Note: ID CONSULT DICTATED RESPIRATORY FAILURE R/O PNEUMONIA RECENT ESBL BACTEREMIA, PRESUMED SOURCE CHRONICALLY INFECTED R TKR MORBID OBESITY AZOTEMIA AWAIT C/S EMPIRIC MEROPENEM + STAT DOSE VANCOMYCIN CONTACT PRECAUTIONS
[2018-04-13] MEDS ORDERED: VANCOMYCIN 1 GRAM (PRE-DOCKED) 1,000 MG/250 ML BAG IVPB ONE (11:00)
--- NOTE | 2018-04-13 11:21 | CONS ---
DATE OF CONSULTATION: DATE OF DICTATION: 04/13/2018 INFECTIOUS DISEASE CONSULTATION The patient is a 72-year-old female evaluated for fever. History was obtained from the chart as she cannot give a history secondary to her mental status. She is presently in the intensive care unit lethargic on BiPAP mask. The patient was admitted to the hospital on April 13, 2018, with reports of increasing lethargy, altered mentation, and hypoxemia at the correction. She was transferred to the emergency room where her O2 saturations were noted to be in the low 80s. Patient was placed on a BiPAP mask. A chest x-ray was performed and showed an enlarged heart, and a left pleural, possible infiltrate. The patient has a history of COPD and congestive heart failure. She was recently seen in the emergency room at [facility] on March 30, 2018, with similar presentation. At that time, blood cultures were positive for ESBL. She was transferred to the [facility] for imaging studies. She received a course of intravenous Carbapenem and was discharged to the correction with a PICC line to complete a course of IV ertapenem. At the present time, she is lethargic but arousable. She is unable to offer any additional details. Her course has been complicated by low-grade fever. Patient has a long history of a chronically infected right total knee replacement for which he had been on chronic suppressive antibiotic therapy as she was considered a nonoperative candidate. PAST MEDICAL HISTORY: Positive for morbid obesity, insulin dependent diabetes mellitus, congestive heart failure, coronary artery disease, COPD, hyperlipidemia. PAST SURGICAL HISTORY: Status post coronary artery stent, cholecystectomy, hysterectomy. ALLERGIES: METOPROLOL, METRONIDAZOLE. MEDICATIONS: At the present time include albuterol, aspirin, Plavix, Colace, Lanoxin, ertapenem, methylprednisolone, morphine, Protonix. SOCIAL HISTORY: [facility] a [facility]. No active tobacco or alcohol use. SYSTEM REVIEW: Neurologic: As per HPI. Cardiac: Negative chest pain or palpitations. Respiratory: As per HPI. Gastrointestinal: Negative vomiting or diarrhea. Genitourinary: Positive for recent urinary tract infection. LABORATORY DATA: White count 9.1, hematocrit 33.3, platelet count 224. BUN 23, creatinine 1.8. Urine and blood cultures are pending. Blood cultures from March 30, positive for E. coli ESBL. PHYSICAL EXAMINATION: General: She is lethargic, but arousable. She is not conversant. Vital Signs: Temperature 100.2, blood pressure 118/91, pulse 77 regular respirations 16 per minute. HEENT: Sclerae anicteric. BiPAP mask is in place. Heart: Sounds S1, S2. Lungs: Decreased breath sounds bilaterally. Abdomen: Massively obese, nontender. Extremities: Positive for lower extremity edema, bilateral lower extremity chronic venous stasis dermatitis. There is no appreciable erythema or warmth. There is a sinus on the right knee from which no drainage is noted or expressed. IMPRESSION: 1. Respiratory failure, acute on chronic. 2. Rule out pneumonia. 3. Left pleural effusion, rule out infiltrate. 4. Recent extended spectrum beta-lactamase bacteremia presumed urinary tract source. 5. Chronically infected right total knee replacement. 6. Morbid obesity. 7. Azotemia. RECOMMENDATIONS: Await sepsis workup. Continue empiric coverage for possible ESBL with meropenem 500 mg piggyback every 8 hours. STAT dose vancomycin. Contact precautions. Will follow. Thank you for the kind referral. REKHA PIERRE M.D. [id number]
--- NOTE | 2018-04-13 11:37 | EKG ---
Test Reason : Blood Pressure : / mmHG Vent. Rate : 078 BPM Atrial Rate : 078 BPM P-R Int : 214 ms QRS Dur : 072 ms QT Int : 370 ms P-R-T Axes : 050 034 024 degrees QTc Int : 421 ms SINUS RHYTHM WITH 1ST DEGREE A-V BLOCK LOW VOLTAGE QRS SEPTAL INFARCT (CITED ON OR BEFORE 29-MAR-2018) ABNORMAL ECG WHEN COMPARED WITH ECG OF 29-MAR-2018 23:15, NONSPECIFIC T WAVE ABNORMALITY, WORSE IN INFERIOR LEADS NONSPECIFIC T WAVE ABNORMALITY NOW EVIDENT IN ANTEROLATERAL LEADS Confirmed by VANESA PETERSON, DARIELA ([id number]) on 04/13/2018 11:36:54 AM Referred By: Confirmed By:DARIELA A[place]IS MD
[2018-04-13] MEDS: INSULIN (NOVOLOG) ASPART 100 UNITS/ML 10ML VIAL SQ SCH ×3 (12:00→21:51)
[2018-04-13] MEDS: ALBUTEROL SO4 2.5/IPRATROPIUM 0.5 INH SOL 3 ML VIAL.NEB. NEB SCH ×3 (12:23→20:56)
--- NOTE | 2018-04-13 12:36 | PN ---
Teaching Attending Note Name of Resident: Melina Sanchez ATTENDING PHYSICIAN STATEMENT I saw and evaluated the patient. I reviewed the resident's note and discussed the case with the resident. I agree with the resident's findings and plan as documented. SUBJECTIVE: Pt seen and examined in the ICU. Lethargic but arousable on BiPAP. Low grade temp but no pressors. OBJECTIVE: Vital Signs Period Temp Pulse Resp BP Sys/Gottlieb Pulse Ox Last 24 Hr 98.7 F-100.2 F 72-82 16-20 96-142/60-91 97-100 Intake & Output 04/10/18 04/11/18 04/12/18 04/13/18 23:59 23:59 23:59 23:59 Output Total 400 Balance -400 Weight 158.757 kg Gen: lethargic on BiPAP Heart: RRR Lung: distant breath sounds Abd: soft, nontender, obese Ext: + edema CBC, BMP 04/13/18 05:20 04/13/18 05:20 Active Medications Albuterol/Ipratropium (Duoneb -) 1 amp NEB RQID EFRAIN Last Admin: 04/13/18 12:23 Dose: 1 amp Aspirin (Asa -) 81 mg PO DAILY EFRAIN Clopidogrel Bisulfate (Plavix -) 75 mg PO DAILY EFRAIN Docusate Sodium (Colace -) 300 mg PO DAILY EFRAIN Enoxaparin Sodium (Lovenox -) 40 mg SQ DAILY EFRAIN Meropenem 500 mg/ Dextrose 100 mls @ 200 mls/hr IVPB Q8H-IV EFRAIN Insulin Aspart (Novolog Vial) 1 units SQ ACHS EFRAIN; Protocol Methylprednisolone Sodium Succinate (Solu-Medrol -) 80 mg IVPUSH Q8H-IV EFRAIN Morphine Sulfate (Msir -) 15 mg PO Q6H PRN PRN Reason: PAIN LEVEL 7 - 10 Pantoprazole Sodium (Protonix Iv) 40 mg IVPUSH DAILY EFRAIN ASSESSMENT AND PLAN: Acute on Chronic Hypoxic and Hypercapneic Respiratory Failure Acute COPD Exacerbation r/o Pneumonia r/o Sepsis Acute on Chronic Renal Failure Pericardial Effusion DM - adjusted BiPAP settings - monitor ABG - IV medrol - inhaled bronchodilators standing and PRN - O2 to keep Spo2 88-92% - antibiotics per ID - f/u cultures - monitor urine output, creatinine - NPO until mental status improved - aspiration precautions - DVT prophylaxis - continue ICU monitoring for tenuous respiratory status critical care time spent in reviewing chart, evaluating patient and formulating plan 35 min
[2018-04-13] MEDS ORDERED: PT OWN MED DRAWER 7, Y5N ONE ×3 (12:40→20:10)
[2018-04-13] MEDS: ENOXAPARIN NA (PORCINE) 40 MG/0.4 ML DISP.SYRIN SQ SCH (12:50)
[2018-04-13] MEDS: ASPIRIN 81 MG CHEWABLE TABLETS PO SCH (12:51)
[2018-04-13] MEDS: DOCUSATE SODIUM 100 MG CAPSULE (FP) PO SCH (12:51)
[2018-04-13] MEDS: CLOPIDOGREL BISULFATE 75 MG TABLET (FP) PO SCH (12:51)
[2018-04-13] MEDS: PANTOPRAZOLE SODIUM 40 MG VIAL IVPUSH SCH (12:52)
[2018-04-13] MEDS: methylPREDNISolone NA SUCC 125 MG/2 ML VIAL IVPUSH SCH ×2 (12:53→18:33)
[2018-04-13] MEDS: MEROPENEM 500 MG in DEXTROSE 5%-WATER 100 ML IVPB SCH ×2 (12:58→18:32)
[2018-04-13 13:13] LABS: ARTERIAL BLD GAS O2 SATURATION 91.8 % (90-98.9); ARTERIAL BLOOD GAS BASE EXCESS 1.9 meq/l (-2-2); ARTERIAL BLOOD GAS PO2 71.6 mmHg (70-100)
[2018-04-13 13:30] LABS: ALLENS TEST POSITIVE
[2018-04-13 13:37] LABS: ARTERIAL BLOOD GAS pH 7.19 (7.35-7.45)
--- NOTE | 2018-04-13 14:47 | CONSULT ---
Consultation: REQUESTING PROVIDER: CONSULT REQUEST: We have been asked to medically evaluate this patient for admission to ICU. HISTORY OF PRESENT ILLNESS: 72 y/o F with PMHx of CAD s/p Stents, HTN, HLD, COPD, DM, MRSA cellulitis, Former smoker (Quit 15 years ago), who was recently transferred to [facility] for possible Sepsis, was BIBEMS from [facility] for AMS. Patient is altered during my interview and unable to provide hx however she recalls having increasing cough and worsening dyspnea. Patients son reports increasing SOB since yesterday. He mentions that [facility] Staff reported O2 Sats of 84-88% after trying 2 nebulizer tx' s. He is unable to provide the hospital course at [facility] however he mentions she completed a course of ABx. Lastly, son mentions that patients mental status waxes and wanes for the past 3 weeks. REVIEW OF SYSTEMS: Unable to obtain as patient is Lethargic PHYSICAL EXAMINATION Vital Signs - 24 hr 04/13/18 04/13/18 04/13/18 00:35 01:45 06:45 Temperature 98.7 F Pulse Rate 72 Pulse Rate [ Apical] Respiratory 19 Rate Blood Pressure 142/66 Blood Pressure [Left Arm] O2 Sat by Pulse 97 98 100 Oximetry (%) 04/13/18 04/13/18 04/13/18 07:52 09:15 09:17 Temperature 98.7 F Pulse Rate 77 Pulse Rate [ 82 Apical] Respiratory 20 16 Rate Blood Pressure 118/91 Blood Pressure 111/60 [Left Arm] O2 Sat by Pulse 99 97 Oximetry (%) 04/13/18 04/13/18 09:57 12:19 Temperature 100.2 F H Pulse Rate 76 Pulse Rate [ Apical] Respiratory 16 Rate Blood Pressure 96/84 Blood Pressure [Left Arm] O2 Sat by Pulse 97 Oximetry (%) GENERAL: Awake but Lethargic HEAD: NCAT EYES: PERRL, EOMI EARS, NOSE, THROAT: Dry mucous membranes NECK: Supple LUNGS: Diminished breath sounds at the bases, On Bipap HEART: Regular rate and rhythm, normal S1 and S2 without murmur ABDOMEN: Obese, Soft, nontender, not distended, + bowel sounds, no guarding UPPER EXTREMITIES: Atrophic and Contracted RUE LOWER EXTREMITIES: 1+ edema NEUROLOGICAL: Lethargic SKIN: Warm, dry, Anterior [place] Hyperpigmentation Laboratory Results - last 24 hr 04/13/18 04/13/18 04/13/18 05:20 05:20 05:20 WBC RBC Hgb Hct MCV MCH MCHC RDW Plt Count MPV PT with INR 12.50 INR 1.06 Anticoagulation Therapy Puncture Site ABG pH ABG pCO2 at Pt Temp ABG pO2 at Pt Temp ABG HCO3 ABG O2 Sat (Measured) ABG O2 Content ABG Base Excess Sergey Test O2 Delivery Device Oxygen Flow Rate Vent Mode Vent Rate Mechanical Rate Pressure Support Vent Sodium 139 Potassium 5.0 Chloride 103 Carbon Dioxide 34 H Anion Gap 3 L BUN 23 H Creatinine 1.8 H Creat Clearance w eGFR 27.74 POC Glucometer Random Glucose 106 Lactic Acid 0.7 Calcium 7.8 L Phosphorus 5.1 H Magnesium 2.2 Total Bilirubin 0.5 AST 14 L ALT 14 Alkaline Phosphatase 141 H Troponin I < 0.02 B-Natriuretic Peptide 2647.0 H Total Protein 5.8 L Albumin 2.5 L 04/13/18 04/13/18 04/13/18 05:20 05:55 12:07 WBC 9.1 RBC 4.05 Hgb 11.0 Hct 33.3 MCV 82.2 MCH 27.1 MCHC 33.0 RDW 18.5 H Plt Count 224 MPV 8.6 PT with INR INR Anticoagulation Therapy No Result Required. Puncture Site Right brachial ABG pH 7.23 L* ABG pCO2 at Pt Temp 78.8 H* D ABG pO2 at Pt Temp 97.4 ABG HCO3 31.5 H ABG O2 Sat (Measured) 95.0 ABG O2 Content 14.2 L ABG Base Excess 2.6 H Sergey Test Positive O2 Delivery Device Room air Oxygen Flow Rate 21 Vent Mode No Result Required. Vent Rate No Result Required. Mechanical Rate No Result Required. Pressure Support Vent No Result Required. Sodium Potassium Chloride Carbon Dioxide Anion Gap BUN Creatinine Creat Clearance w eGFR POC Glucometer 95 Random Glucose Lactic Acid Calcium Phosphorus Magnesium Total Bilirubin AST ALT Alkaline Phosphatase Troponin I B-Natriuretic Peptide Total Protein Albumin 04/13/18 13:05 WBC RBC Hgb Hct MCV MCH MCHC RDW Plt Count MPV PT with INR INR Anticoagulation Therapy Puncture Site Left radial ABG pH 7.19 L* ABG pCO2 at Pt Temp 87.0 H* ABG pO2 at Pt Temp 71.6 D ABG HCO3 31.7 H ABG O2 Sat (Measured) 91.8 ABG O2 Content 13.1 L ABG Base Excess 1.9 Sergey Test Positive O2 Delivery Device Venti mask Oxygen Flow Rate 40% Vent Mode Vent Rate Mechanical Rate Pressure Support Vent Sodium Potassium Chloride Carbon Dioxide Anion Gap BUN Creatinine Creat Clearance w eGFR POC Glucometer Random Glucose Lactic Acid Calcium Phosphorus Magnesium Total Bilirubin AST ALT Alkaline Phosphatase Troponin I B-Natriuretic Peptide Total Protein Albumin Active Medications Albuterol/Ipratropium (Duoneb -) 1 amp NEB RQID [facility] Last Admin: 04/13/18 12:23 Dose: 1 amp Aspirin (Asa -) 81 mg PO DAILY [facility] Last Admin: 04/13/18 12:51 Dose: 81 mg Clopidogrel Bisulfate (Plavix -) 75 mg PO DAILY [facility] Last Admin: 04/13/18 12:51 Dose: 75 mg Docusate Sodium (Colace -) 300 mg PO DAILY [facility] Last Admin: 04/13/18 12:51 Dose: 300 mg Enoxaparin Sodium (Lovenox -) 40 mg SQ DAILY [facility] Last Admin: 04/13/18 12:50 Dose: 40 mg Meropenem 500 mg/ Dextrose 100 mls @ 200 mls/hr IVPB Q8H-IV [facility] Last Admin: 04/13/18 12:58 Dose: 200 mls/hr Insulin Aspart (Novolog Vial) 1 units SQ ACHS [facility]; Protocol Last Admin: 04/13/18 12:00 Dose: Not Given Methylprednisolone Sodium Succinate (Solu-Medrol -) 80 mg IVPUSH Q8H-IV [facility] Last Admin: 04/13/18 12:53 Dose: Not Given Morphine Sulfate (Msir -) 15 mg PO Q6H PRN PRN Reason: PAIN LEVEL 7 - 10 Pantoprazole Sodium (Protonix Iv) 40 mg IVPUSH DAILY [facility] Last Admin: 04/13/18 12:52 Dose: 40 mg ASSESSMENT/PLAN: 72 y/o F with PMHx of CAD s/p Stents, HTN, HLD, COPD, DM, MRSA cellulitis, Former smoker (Quit 15 years ago), who was recently transferred to [facility] for possible Sepsis, was BIBEMS from [facility] for AMS and will be monitored in ICU for Acute Respiratory Failure. #Neuro Lethargic this AM -Likely due to Hypercapnia -Keep NPO until mental status improves -Aspiration precautions -Continue to monitor #Cardio Pericardial Effusion Elevated BNP Hx of CAD s/p Stents, HTN, HLD -Trop < 0.02 -BNP 2647 -EKG: SINUS RHYTHM WITH 1ST DEGREE A-V BLOCK, VR 78, QTc 421 -ECHO pending to evaluate Pericardial Effusion -Continue ASA, Clopidogrel #Pulmonary Acute Hypoxic Hypercapnic Respiratory Failure Hx of COPD -Likely due to COPD Exacerbation, Components of NIKHIL -Patient removed Bipap, [place] more comfortable with Ventimask however blood gas worsening -Monitor ABG -CXR: Questionable left pleural effusion. No pneumothorax is seen. No evidence of airspace opacities. -Continue Bipap -Albuterol/Ipratropium QID -IV Methylprednisolone 80mg Q8H -Supplemental O2 to maintain SpO2 85-92% #GI Elevated Alk Phos Morbid Obesity -Continue to monitor; Will consider further imaging if continues to rise -IV Pantoprazole 40mg Daily -Bowel regimen via Docusate -Will need outpatient follow up for tighter weight control, possibly bariatric surgery #Renal Elevated Cr; Baseline 1.5-1.6 Hyperphosphatemia -Monitor urine output, creatinine #Heme -No Active issues, Continue to monitor #Endo Hx of DM -BGMs ISS ACHS #ID Recently treated for Sepsis; R/O Sepsis Hx of MRSA cellulitis -Currently AFebrile, Without elevated WBC Count -LA 0.7 -UA, Blood and urine Cx pending -Dr. Jennings Consulted -IV Meropenem 500mg Q8H (started on 04/13) #FEN -No Standing Fluids -Replete lytes PRN -NPO #PPx -DVT: Enoxaparin -GI: Pantoprazole Code Status: Full Code Dispo: We will continue to follow the patient. Thank you for this consultative opportunity. Visit type - Emergency Visit Emergency Visit: Yes ED Registration Date: 04/13/18 Care time: The patient presented to the Emergency Department on the above date and was hospitalized for further evaluation of their emergent condition. - New Patient This patient is new to me today: Yes Date on this admission: 04/13/18 - Critical Care Critical Care patient: Yes Total Critical Care Time (in minutes): 40 Critical Care Statement: The care of this patient involved high complexity decision making to prevent further life threatening deterioration of the patient 's condition and/or to evaluate & treat vital organ system(s) failure or risk of failure.
--- NOTE | 2018-04-13 15:11 | ECHO ---
Name: SAM PEGLázaro MARICRUZ Exam:Adult Echocardiogram Study Date: 04/13/2018 02:15 PM Age: 72 yrs Reason For Study: EVALUATE PERICARDIAL EFFUSION Height: 62 in Weight: 350 lb BSA: 2.4 m2 MMode/2D Measurements & Calculations IVSd: 0.90 cm Ao root diam: 3.1 cm LVIDd: 4.8 cm LVIDs: 3.5 cm LVPWd: 0.85 cm EDV(Teich): 106.1 ml ESV(Teich): 49.8 ml Doppler Measurements & Calculations MV E max kyra: 77.9 cm/sec Ao V2 max: 121.6 cm/sec MV A max kyra: 84.8 cm/sec Ao max P.9 mmHg MV E/A: 0.92 MV dec time: 0.25 sec LV V1 max P.1 mmHg LV V1 max: 53.4 cm/sec Procedure A two-dimensional transthoracic echocardiogram with color flow and Doppler was performed. The study w as technically difficult with many images being suboptimal in quality. The study was non-diagnostic in q uality. No definitive statements could be made about this echo due to extremely poor acoustic windows. Left Ventricle The left ventricular size, thickness and function are normal. The left ventricle is not well visualiz ed. The left ventricular ejection fraction is normal. Regional wall motion abnormalities cannot be excluded d ue to limited visualization. Right Ventricle The right ventricle is not well visualized. Atria The left atrium is not well visualized. Right atrium not well visualized. Mitral Valve The mitral valve is not well visualized. Tricuspid Valve The tricuspid valve is not well visualized. Aortic Valve The aortic valve is not well visualized. Pulmonic Valve The pulmonic valve is not well visualized. Great Vessels The aortic root is not well visualized. Interpretation Summary The study was technically difficult with many images being suboptimal in quality. The left ventricular size, thickness and function are normal The left ventricular ejection fraction is normal. The left ventricle is not well visualized. Regional wall motion abnormalities cannot be excluded due to limited visualization. The study was non-diagnostic in quality. No definitive statements could be made about this echo due t o extremely poor acoustic windows. The mitral valve is not well visualized. The tricuspid valve is not well visualized. The aortic valve is not well visualized. The pulmonic valve is not well visualized. The aortic root is not well visualized. MD Abdon Sanchez 04/13/2018 03:10 PM
[2018-04-13 15:44] LABS: URINE APPEARANCE CLOUDY; URINE BILIRUBIN NEGATIVE (<2.0 mg/dL); URINE COLOR DKYELLOW; URINE GLUCOSE (UA) NEGATIVE (NEGATIVE); URINE KETONE NEGATIVE (NEGATIVE); URINE LEUK ESTERASE 3+ (NEGATIVE); URINE NITRITE NEGATIVE (NEGATIVE); URINE PROTEIN 2+ (NEGATIVE); URINE UROBILINOGEN NEGATIVE mg/dL (0.2-1.0)
[2018-04-13 15:57] LABS: EPI CELLS MANY /HPF (FEW); URINE BACTERIA RARE /hpf (NONE SEEN); URINE HYALINE CAST 27 /lpf; URINE MUCUS RARE; YEAST MODERATE
[2018-04-13 17:28] VITALS: BMI 61.2
[2018-04-14] MEDS: methylPREDNISolone NA SUCC 125 MG/2 ML VIAL IVPUSH SCH ×2 (01:24→09:44)
[2018-04-14] MEDS: MEROPENEM 500 MG in DEXTROSE 5%-WATER 100 ML IVPB SCH ×3 (01:25→19:56)
[2018-04-14] MEDS ORDERED: morphine SULFATE 4 MG/ML VIAL IVPUSH ONE (02:04)
[2018-04-14] MEDS ORDERED: morphine SULFATE 4 MG/ML VIAL ONE (02:11)
[2018-04-14] MEDS: INSULIN (NOVOLOG) ASPART 100 UNITS/ML 10ML VIAL SQ SCH ×4 (06:11→21:26)
[2018-04-14 06:25] LABS: BASO % 0.1 % (0-2.0); HEMATOCRIT 31.8 % (32.4-45.2); HEMOGLOBIN 10.6 GM/dL (10.7-15.3); LYMPH % 4.6 % (8-40); MCH 27.1 pg (25.7-33.7); MCHC 33.4 g/dl (32.0-36.0); MEAN CELL VOLUME 81.1 fl (80-96); MEAN PLT VOLUME 8.7 fl (7.5-11.1); NEUT % 92.3 % (42.8-82.8); PLATELET COUNT 173 K/MM3 (134-434); RBC 3.93 M/mm3 (3.60-5.2); WHITE BLOOD COUNT 6.1 K/mm3 (4.0-10.0)
[2018-04-14 06:58] LABS: ARTERIAL BLD GAS O2 SATURATION 93.8 % (90-98.9); ARTERIAL BLOOD GAS BASE EXCESS 3.1 meq/l (-2-2); ARTERIAL BLOOD GAS PCO2 66.4 mmHg (35-45); ARTERIAL BLOOD GAS PO2 85.6 mmHg (70-100); ARTERIAL BLOOD GAS pH 7.29 (7.35-7.45)
[2018-04-14 08:17] LABS: ALBUMIN 2.5 g/dl (3.4-5.0); ALK PHOS 124 U/L (45-117); ANION GAP 3 MMOL/L (8-16); BILIRUBIN,TOTAL 0.4 mg/dL (0.2-1); BLOOD UREA NITROGEN 32 mg/dL (7-18); CALCIUM 8.3 mg/dL (8.5-10.1); CHLORIDE 101 mmol/L (98-107); CO2 35 mmol/L (21-32); CREATININE 1.7 mg/dL (0.55-1.3); GLUCOSE,RANDOM 165 mg/dL (74-106); MAGNESIUM 2.3 mg/dL (1.8-2.4); PHOSPHOROUS 4.7 mg/dL (2.5-4.9); POTASSIUM 5.4 mmol/L (3.5-5.1); SGOT/AST 10 U/L (15-37); SGPT/ALT 13 U/L (13-61); SODIUM 139 mmol/L (136-145); TOT PROT 5.6 g/dl (6.4-8.2)
[2018-04-14] MEDS: ALBUTEROL SO4 2.5/IPRATROPIUM 0.5 INH SOL 3 ML VIAL.NEB. NEB SCH ×4 (08:20→20:11)
[2018-04-14] MEDS: morphine SULFATE IMMEDIATE RELEASE 30 MG TAB PO PRN (08:26)
[2018-04-14] MEDS: PANTOPRAZOLE SODIUM 40 MG VIAL IVPUSH SCH (09:41)
[2018-04-14] MEDS: ENOXAPARIN NA (PORCINE) 40 MG/0.4 ML DISP.SYRIN SQ SCH (09:41)
[2018-04-14] MEDS: CLOPIDOGREL BISULFATE 75 MG TABLET (FP) PO SCH (09:42)
[2018-04-14] MEDS: DOCUSATE SODIUM 100 MG CAPSULE (FP) PO SCH (09:42)
[2018-04-14] MEDS: ASPIRIN 81 MG CHEWABLE TABLETS PO SCH (09:42)
--- NOTE | 2018-04-14 09:53 | PN ---
Progress Note (short form) - Note Progress Note: much better today awake, alert, agitated, anxious did not tolerate BIPAP at night Vital Signs Period Temp Pulse Resp BP Sys/Gottlieb Pulse Ox Last 24 Hr 98.0 F-100.2 F 58-76 14-77 96-150/61-92 92-97 S!s2 rrr lungs cta and, thick yellow sputum upon coughing abd obese, soft tr edema aaox3 hypercapnic respiratory failure morbid obesity salbador copd exacerbation possible underlying pna recent e.coli bactermia niddm cont bipap at night at least iv steroids iv abx nebulizers gi/dvt prophylaxis can eat transfer as per icu team resume bp meds Problem List - Problems (1) Acute respiratory failure with hypoxia and hypercapnia Code(s): J96.01 - ACUTE RESPIRATORY FAILURE WITH HYPOXIA; J96.02 - ACUTE RESPIRATORY FAILURE WITH HYPERCAPNIA (2) CAD (coronary artery disease) Code(s): I25.10 - ATHSCL HEART DISEASE OF [place] CORONARY ARTERY W/O ANG PCTRS Qualifiers: Coronary Disease-Associated Artery/Lesion type: [place] artery Associated angina: without angina (3) Obesity Code(s): E66.9 - OBESITY, UNSPECIFIED Qualifiers: Obesity type: due to excess calories Obesity classification: adult class 3 (BMI >= 40) Body mass index: BMI 60.0-69.9 (4) SANGITA (acute kidney injury) Code(s): N17.9 - ACUTE KIDNEY FAILURE, UNSPECIFIED (5) Cellulitis Code(s): L03.90 - CELLULITIS, UNSPECIFIED Qualifiers: Site of cellulitis: extremity Site of cellulitis of extremity: lower extremity Laterality: right Qualified Code(s): L03.115 - Cellulitis of right lower limb (6) Chronic pain Code(s): G89.29 - OTHER CHRONIC PAIN Qualifiers: Chronic pain type: chronic pain syndrome Qualified Code(s): G89.4 - Chronic pain syndrome (7) Diabetes mellitus Code(s): E11.9 - TYPE 2 DIABETES MELLITUS WITHOUT COMPLICATIONS Qualifiers: Diabetes mellitus type: type 2 Diabetes mellitus senior care insulin use: with senior care use (8) Limb deformities, congenital Code(s): 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
--- NOTE | 2018-04-14 10:53 | PN ---
Teaching Attending Note Name of Resident: Melina Sanchez ATTENDING PHYSICIAN STATEMENT I saw and evaluated the patient. I reviewed the resident's note and discussed the case with the resident. I agree with the resident's findings and plan as documented. SUBJECTIVE: Pt seen and examined in the ICU. Mental status much improved. On ventimask 40%. ABG with improving respiratory acidosis. OBJECTIVE: Vital Signs Period Temp Pulse Resp BP Sys/Gottlieb Pulse Ox Last 24 Hr 98.0 F-100.2 F 58-76 14-77 96-150/61-92 92-100 Intake & Output 04/11/18 04/12/18 04/13/18 04/14/18 23:59 23:59 23:59 23:59 Intake Total 450 Output Total 500 50 Balance -50 -50 Weight 151.953 kg Gen: more awake, alert Heart: RRR Lung: decreased breath sounds at the bases Abd: soft, nontender, obese Ext: + edema CBC, BMP 04/14/18 05:30 04/14/18 05:30 Active Medications Albuterol/Ipratropium (Duoneb -) 1 amp NEB RQID [facility] Last Admin: 04/14/18 08:20 Dose: 1 amp Aspirin (Asa -) 81 mg PO DAILY [facility] Last Admin: 04/14/18 09:42 Dose: 81 mg Clopidogrel Bisulfate (Plavix -) 75 mg PO DAILY [facility] Last Admin: 04/14/18 09:42 Dose: 75 mg Docusate Sodium (Colace -) 300 mg PO DAILY [facility] Last Admin: 04/14/18 09:42 Dose: 300 mg Enoxaparin Sodium (Lovenox -) 40 mg SQ DAILY [facility] Last Admin: 04/14/18 09:41 Dose: 40 mg Meropenem 500 mg/ Dextrose 100 mls @ 200 mls/hr IVPB Q8H-IV [facility] Last Admin: 04/14/18 09:43 Dose: 200 mls/hr Insulin Aspart (Novolog Vial) 1 units SQ ACHS [facility]; Protocol Last Admin: 04/14/18 06:11 Dose: 2 unit Losartan Potassium (Cozaar -) 50 mg PO DAILY [facility] Methylprednisolone Sodium Succinate (Solu-Medrol -) 60 mg IVPUSH Q8H-IV [facility] Morphine Sulfate (Msir -) 15 mg PO Q6H PRN PRN Reason: PAIN LEVEL 7 - 10 Last Admin: 04/14/18 08:26 Dose: 15 mg Pantoprazole Sodium (Protonix Iv) 40 mg IVPUSH DAILY [facility] Last Admin: 04/14/18 09:41 Dose: 40 mg ASSESSMENT AND PLAN: Acute on Chronic Hypoxic and Hypercapneic Respiratory Failure Acute COPD Exacerbation r/o Pneumonia r/o Sepsis Acute on Chronic Renal Failure Pericardial Effusion DM - continue medrol - inhaled bronchodilators standing and PRN - O2 to keep Spo2 88-92% - monitor ABG - BiPAP as needed if mental status worsens - antibiotics per ID - f/u cultures - monitor urine output, creatinine - PO as tolerated - aspiration precautions - will need outpt PFTs, PSG - DVT prophylaxis - continue ICU monitoring for tenuous respiratory status critical care time spent in reviewing chart, evaluating patient and formulating plan 35 min
--- NOTE | 2018-04-14 10:55 | PN ---
Physical Exam: SUBJECTIVE: Patient seen and examined this morning in ICU. Agitated overnight and kept pulling Bipap mask off. This AM, her mental status has improved. OBJECTIVE: Vital Signs Period Temp Pulse Resp BP Sys/Gottlieb Pulse Ox Last 24 Hr 98.0 F-100.2 F 58-76 14-77 96-150/61-92 92-100 GENERAL: A&Ox3, NAD HEAD: NCAT EYES: PERRL, EOMI ENT: Moist mucous membranes NECK: Supple LUNGS: Diminished breath sounds at the bases HEART: Regular rate and rhythm, normal S1 and S2 without murmur ABDOMEN: Obese, Soft, nontender, not distended, + bowel sounds, no guarding UPPER EXTREMITIES: Atrophic and Contracted RUE LOWER EXTREMITIES: 1+ edema NEUROLOGICAL: Cranial nerves II through XII grossly intact. Normal speech. SKIN: Warm, dry, Anterior [place] Hyperpigmentation Laboratory Results - last 24 hr 04/13/18 04/13/18 04/14/18 17:07 21:42 05:30 WBC 6.1 RBC 3.93 Hgb 10.6 L Hct 31.8 L MCV 81.1 MCH 27.1 MCHC 33.4 RDW 18.0 H Plt Count 173 D MPV 8.7 Absolute Neuts (auto) 5.6 Neutrophils % 92.3 H Lymphocytes % 4.6 L D Monocytes % 3.0 L Eosinophils % 0.0 Basophils % 0.1 Nucleated RBC % 0 Puncture Site ABG pH ABG pCO2 at Pt Temp ABG pO2 at Pt Temp ABG HCO3 ABG O2 Sat (Measured) ABG O2 Content ABG Base Excess Sergey Test O2 Delivery Device Oxygen Flow Rate Sodium Potassium Chloride Carbon Dioxide Anion Gap BUN Creatinine Creat Clearance w eGFR POC Glucometer 150 155 Random Glucose Calcium Phosphorus Magnesium Total Bilirubin AST ALT Alkaline Phosphatase Total Protein Albumin Urine Color Urine Appearance Urine pH Ur Specific [place] Urine Protein Urine Glucose (UA) Urine Ketones Urine Blood Urine Nitrite Urine Bilirubin Urine Urobilinogen Ur Leukocyte Esterase Urine WBC (Auto) Urine RBC (Auto) Ur Epithelial Cells Urine Bacteria Hyaline Casts Urine Mucus Urine Yeast 04/14/18 04/14/18 04/14/18 05:30 06:00 06:09 WBC RBC Hgb Hct MCV MCH MCHC RDW Plt Count MPV Absolute Neuts (auto) Neutrophils % Lymphocytes % Monocytes % Eosinophils % Basophils % Nucleated RBC % Puncture Site Left brachial ABG pH 7.29 L ABG pCO2 at Pt Temp 66.4 H* D ABG pO2 at Pt Temp 85.6 ABG HCO3 31.1 H ABG O2 Sat (Measured) 93.8 ABG O2 Content 18.2 ABG Base Excess 3.1 H Sergey Test No Result Required. O2 Delivery Device Venti mask Oxygen Flow Rate 40 Sodium 139 Potassium 5.4 H Chloride 101 Carbon Dioxide 35 H Anion Gap 3 L BUN 32 H Creatinine 1.7 H Creat Clearance w eGFR 29.63 POC Glucometer 169 Random Glucose 165 H Calcium 8.3 L Phosphorus 4.7 Magnesium 2.3 Total Bilirubin 0.4 AST 10 L ALT 13 Alkaline Phosphatase 124 H Total Protein 5.6 L Albumin 2.5 L Urine Color Urine Appearance Urine pH Ur Specific [place] Urine Protein Urine Glucose (UA) Urine Ketones Urine Blood Urine Nitrite Urine Bilirubin Urine Urobilinogen Ur Leukocyte Esterase Urine WBC (Auto) Urine RBC (Auto) Ur Epithelial Cells Urine Bacteria Hyaline Casts Urine Mucus Urine Yeast Active Medications Albuterol/Ipratropium (Duoneb -) 1 amp NEB RQID [facility] Last Admin: 04/14/18 08:20 Dose: 1 amp Aspirin (Asa -) 81 mg PO DAILY [facility] Last Admin: 04/14/18 09:42 Dose: 81 mg Clopidogrel Bisulfate (Plavix -) 75 mg PO DAILY [facility] Last Admin: 04/14/18 09:42 Dose: 75 mg Docusate Sodium (Colace -) 300 mg PO DAILY [facility] Last Admin: 04/14/18 09:42 Dose: 300 mg Enoxaparin Sodium (Lovenox -) 40 mg SQ DAILY [facility] Last Admin: 04/14/18 09:41 Dose: 40 mg Meropenem 500 mg/ Dextrose 100 mls @ 200 mls/hr IVPB Q8H-IV [facility] Last Admin: 04/14/18 09:43 Dose: 200 mls/hr Insulin Aspart (Novolog Vial) 1 units SQ ACHS [facility]; Protocol Last Admin: 04/14/18 06:11 Dose: 2 unit Losartan Potassium (Cozaar -) 50 mg PO DAILY [facility] Methylprednisolone Sodium Succinate (Solu-Medrol -) 60 mg IVPUSH Q8H-IV [facility] Morphine Sulfate (Msir -) 15 mg PO Q6H PRN PRN Reason: PAIN LEVEL 7 - 10 Last Admin: 04/14/18 08:26 Dose: 15 mg Pantoprazole Sodium (Protonix Iv) 40 mg IVPUSH DAILY [facility] Last Admin: 04/14/18 09:41 Dose: 40 mg ASSESSMENT/PLAN: 72 y/o F with PMHx of CAD s/p Stents, HTN, HLD, COPD, DM, MRSA cellulitis, Former smoker (Quit 15 years ago), who was recently transferred to [facility] for possible Sepsis, was BIBEMS from [facility] for AMS and will be monitored in ICU for Acute Respiratory Failure. #Neuro Lethargy, Improving -Likely due to Hypercapnia -Aspiration precautions -Continue to monitor #Cardio Pericardial Effusion Elevated BNP Hx of CAD s/p Stents, HTN, HLD -Trop < 0.02 -BNP 2647 -EKG: SINUS RHYTHM WITH 1ST DEGREE A-V BLOCK, VR 78, QTc 421 -ECHO: LV EF is normal -Continue ASA, Clopidogrel #Pulmonary Acute Hypoxic Hypercapnic Respiratory Failure Hx of COPD -Likely due to COPD Exacerbation, Components of NIKHIL -ABG Improving -Does not tolerate Bipap overnight; Monitor on Nasal canula -Bipap HS -CXR: Questionable left pleural effusion. No pneumothorax is seen. No evidence of airspace opacities. -Albuterol/Ipratropium QID -IV Methylprednisolone decreased to 60mg Q8H -Supplemental O2 to maintain SpO2 85-92% #GI Elevated Alk Phos Morbid Obesity -Continue to monitor; Will consider further imaging if continues to rise -IV Pantoprazole 40mg Daily -Bowel regimen via Docusate -Will need outpatient follow up for tighter weight control, possibly bariatric surgery #Renal Elevated Cr, Improving; Baseline 1.5-1.6 Hyperphosphatemia, Corrected Hyperkalemia -Monitor urine output, creatinine #Heme -No Active issues, Continue to monitor #Endo Hx of DM -BGMs ISS ACHS #ID Recently treated for Sepsis; R/O Sepsis Hx of MRSA cellulitis -AFebrile, Without elevated WBC Count -LA 0.7 -UA, Blood and urine Cx pending -Dr. Jennings Consulted -IV Meropenem 500mg Q8H (started on 04/13) #FEN -No Standing Fluids -Replete lytes PRN -NPO; Full Liquid diet for lunch #PPx -DVT: Enoxaparin -GI: Pantoprazole Code Status: Full Code Dispo: We will continue to follow the patient. Thank you for this consultative opportunity. Visit type - Emergency Visit Emergency Visit: Yes ED Registration Date: 04/13/18 Care time: The patient presented to the Emergency Department on the above date and was hospitalized for further evaluation of their emergent condition. - New Patient This patient is new to me today: No - Critical Care Critical Care patient: Yes Total Critical Care Time (in minutes): 36 Critical Care Statement: The care of this patient involved high complexity decision making to prevent further life threatening deterioration of the patient 's condition and/or to evaluate & treat vital organ system(s) failure or risk of failure.
[2018-04-14] MEDS: LOSARTAN POTASSIUM 50 MG TABLET (FP) PO SCH (11:13)
[2018-04-14 11:55] LABS: ANISOCYTOSIS 1+; MACROCYTOSIS 0; PLATELET ESTIMATE DECREASED; TEAR DROP CELLS 1+
--- NOTE | 2018-04-14 12:42 | PN ---
Progress Note, Physician History of Present Illness: MUCH MORE AWAKE AND ALERT C/O R LE PAIN BREATHING NON-LABORED ON NASAL CANNULA O2 TEMPS DOWN AFEBRILE - Current Medication List Current Medications: Active Medications Albuterol/Ipratropium (Duoneb -) 1 amp NEB RQID [facility] Last Admin: 04/14/18 11:20 Dose: 1 amp Aspirin (Asa -) 81 mg PO DAILY [facility] Last Admin: 04/14/18 09:42 Dose: 81 mg Clopidogrel Bisulfate (Plavix -) 75 mg PO DAILY [facility] Last Admin: 04/14/18 09:42 Dose: 75 mg Docusate Sodium (Colace -) 300 mg PO DAILY [facility] Last Admin: 04/14/18 09:42 Dose: 300 mg Enoxaparin Sodium (Lovenox -) 40 mg SQ DAILY [facility] Last Admin: 04/14/18 09:41 Dose: 40 mg Meropenem 500 mg/ Dextrose 100 mls @ 200 mls/hr IVPB Q8H-IV [facility] Last Admin: 04/14/18 09:43 Dose: 200 mls/hr Insulin Aspart (Novolog Vial) [address] [facility]; Protocol Last Admin: 04/14/18 11:05 Dose: Not Given Losartan Potassium (Cozaar -) 50 mg PO DAILY [facility] Last Admin: 04/14/18 11:13 Dose: 50 mg Methylprednisolone Sodium Succinate (Solu-Medrol -) 60 mg IVPUSH Q8H-IV [facility] Morphine Sulfate (Msir -) 15 mg PO Q6H PRN PRN Reason: PAIN LEVEL 7 - 10 Last Admin: 04/14/18 08:26 Dose: 15 mg Pantoprazole Sodium (Protonix Iv) 40 mg IVPUSH DAILY [facility] Last Admin: 04/14/18 09:41 Dose: 40 mg - Objective Vital Signs: Vital Signs Temperature 98.4 F 04/14/18 10:00 Pulse Rate 76 04/14/18 11:54 Respiratory Rate 17 04/14/18 11:54 Blood Pressure 131/66 04/14/18 11:54 O2 Sat by Pulse Oximetry (%) 100 04/14/18 09:56 Constitutional: Yes: Obese Cardiovascular: Yes: Regular Rate and Rhythm, S1, S2 Respiratory: Yes: Diminished Gastrointestinal: Yes: Normal Bowel Sounds, Soft, Abdomen, Obese Extremities: Yes: Other (CHRONIC VENOUS STASIS DERMATITIS B/L NO ERYTHEMA/ WARMTH/ DRAINAGE) Edema: Yes Labs: CBC, BMP 04/14/18 05:30 04/14/18 05:30 INR, PTT INR 1.06 (0.83-1.09) 04/13/18 05:20 Assessment/Plan RESP FAILURE FEVER R/O SEPSIS HX ESBL BACTEREMIA/ SEPSIS CHRONICALLY INFECTED R TKR MORBID OBESITY AWAIT C/S CONTINUE EMPIRIC MEROPENEM
--- NOTE | 2018-04-14 16:05 | CON.CARD ---
Consult Consult Specialty:: Pt A&Ox3; crying; agitated; denies chest pain Reason for Consultation:: shortness of breath; hx diastolic CHF - History of Present Illness Chief Complaint: Pt alert; panicky; imploring she not be left alone; short of breath History of Present Illness: The patient is a 72 year old white woman, with a significant past medical history of morbid obesity, HTN, HLD, DM, diastolic CHF, anxiety/panic, chronically infected right TKR, and recent admission for sepsis (was transferred at that time to [facility] for further care), who presents to the emergency department via EMS from [facility] with, AMS. Patients son at bedside notes, today she was increasingly lethargic and short of breath, prompting her arrival. As per [facility], the patient was O2 saturation was 84-88% on room air. History was obtained by son at bedside and via NH secondary to patients lethargy. - History Source History Provided By: Patient, Medical Record Limitations to Obtaining History: Poor Historian - Past Medical History Cardio/Vascular: Yes: CAD (s/p cardiac stents, last cath in Mar 2014 showed nonobstructive disease), HTN, Hyperlipdemia Pulmonary: Yes: COPD Gastrointestinal: Yes: Constipation Renal/: Yes: Renal Inusuff Reproductive: Yes: Postmenopausal ...: No Infectious Disease: Yes: MRSA (h/o MRSA several years ago) Psych: Yes: Anxiety, Panic Musculoskeletal: Yes: Osteoarthritis Endocrine: Yes: Diabetes Mellitus, Other (Morbid Obesity) - Past Surgical History Past Surgical History: Yes: Cholecystectomy, Hysterectomy, Joint Replacement (R knee as above) - Alcohol/Substance Use Hx Alcohol Use: No - Smoking History Smoking history: Former smoker Have you smoked in the past 12 months: No Aproximately how many cigarettes per day: 0 If you are a former smoker, when did you quit?: 15 years ago - Social History ADL: Family Assistance History of Recent Travel: No Home Medications - Allergies Allergies/Adverse Reactions: Allergies Allergy/AdvReac Type Severity Reaction Status Date / Time metoprolol Allergy Verified 04/13/18 07:23 metronidazole Allergy Verified 04/13/18 07:23 - Home Medications Home Medications: Ambulatory Orders Aspirin [ASA -] 81 mg PO DAILY 10/05/13 Gabapentin 300 mg PO BID 10/05/13 Simvastatin [Zocor -] 40 mg PO HS 10/05/13 Morphine *Immediate Release* [Msir -] 30 mg PO Q4H 03/15/14 Calcium 500Mg/Vit-D 200 Units [Os-Jorge 500+D -] 2 tab PO DAILY tab 01/24/18 Enoxaparin [Lovenox -] 40 mg SQ DAILY disp.syrin 01/24/18 Insulin Detemir [Levemir Flextouch] 10 unit SQ HS 30 Days insuln.pen 01/24/18 Morphine *Sr* [Ms Contin -] 45 mg PO BID #60 tablet.sa MDD 90 mg 01/24/18 Ranitidine [Zantac -] 150 mg PO DAILY tablet 01/24/18 Clopidogrel Bisulfate [Plavix -] 75 mg PO DAILY 03/30/18 Docusate Sodium [Colace -] 300 mg PO DAILY 03/30/18 Insulin Lispro [Humalog] 100 unit SQ [facility] 03/30/18 Olmesartan Medoxomil [Benicar (Nf)] 40 mg PO DAILY 03/30/18 Family Disease History - Family Disease History Family History: Denies Review of Systems - Review of Systems Constitutional: reports: No Symptoms Eyes: reports: No Symptoms HENT: reports: No Symptoms Neck: reports: No Symptoms Cardiovascular: reports: Shortness of Breath Respiratory: reports: SOB Gastrointestinal: reports: No Symptoms Genitourinary: reports: No Symptoms Breasts: reports: No Symptoms Reported Musculoskeletal: reports: Joint Pain, Muscle Pain, Muscle Weakness Integumentary: reports: Erythema Neurological: reports: Weakness Psychiatric: reports: Anxiety, Panic - Risk Factors Known Risk Factors: Yes: Age, Physical Inactivity, Other (morbid obesity) Vital Signs: Vital Signs Temperature 98.8 F 04/14/18 14:00 Pulse Rate 76 04/14/18 14:00 Respiratory Rate 16 04/14/18 14:00 Blood Pressure 145/70 04/14/18 14:00 O2 Sat by Pulse Oximetry (%) 93 L 04/14/18 15:59 Constitutional: Yes: Anxious, Obese Eyes: Yes: WNL HENT: Yes: WNL Neck: Yes: WNL Respiratory: Yes: Diminished, Tachypnea Gastrointestinal: Yes: Soft, Abdomen, Obese Renal/: No: Anuria Cardiovascular: Yes: Tachycardia JVD: No Carotid Bruit: No PMI: Non-Displaced Heart Sounds: Yes: S1, S4 Musculoskeletal: Yes: Joint Stiffness, Joint Swelling, Muscle Pain, Muscle Weakness Extremities: Yes: Cool Edema: Yes Edema: LLE: 1+, RLE: 1+ Peripheral Pulses WNL: Yes Neurological: Yes: Alert, Oriented, Weakness Psychiatric: Yes: Alert, Oriented, Other (anxiety/panic) - Other Data Labs, Other Data: CBC, BMP 04/14/18 05:30 04/14/18 05:30 INR, PTT INR 1.06 (0.83-1.09) 04/13/18 05:20 Abnormal Lab Results 04/15/18 04/15/18 07:36 07:36 Hgb 10.6 L Hct 32.2 L RDW 18.1 H Neutrophils % 91.9 H Neutrophils % (Manual) 96.0 H Lymphocytes % 4.1 L Lymphocytes % (Manual) 1.0 L D Monocytes % (Manual) 3 L D Carbon Dioxide 33 H Anion Gap 4 L BUN 38 H Creatinine 1.6 H Random Glucose 162 H Calcium 8.4 L Magnesium 2.5 H AST 9 L ALT 12 L Total Protein 5.7 L Albumin 2.6 L Echo: Report Reviewed (12/23: normal LVEF; limited study) Ejection Fraction %: LVEF > or = 40 % Imaging - Results Chest X-ray: Image Reviewed EKG: Image Reviewed Problem List - Problems (1) Morbid obesity Code(s): E66.01 - MORBID (SEVERE) OBESITY DUE TO EXCESS CALORIES (2) Chronic renal insufficiency Code(s): N18.9 - CHRONIC KIDNEY DISEASE, UNSPECIFIED (3) Acute respiratory failure with hypoxia and hypercapnia Assessment/Plan: Steroids, bronchodilators, and O2 per cotton ginner helper. Code(s): J96.01 - ACUTE RESPIRATORY FAILURE WITH HYPOXIA; J96.02 - ACUTE RESPIRATORY FAILURE WITH HYPERCAPNIA (4) COPD exacerbation Code(s): J44.1 - CHRONIC OBSTRUCTIVE PULMONARY DISEASE W (ACUTE) EXACERBATION (5) HTN (hypertension) Assessment/Plan: On losartan. ECHO: normal LVEF; repeat when pt positioning allows additional views (unable to assess chamber sizes, wall motion, valvular status). Code(s): I10 - ESSENTIAL (PRIMARY) HYPERTENSION Qualifiers: (6) Hyperlipidemia Assessment/Plan: f/u lipid profile. Code(s): E78.5 - HYPERLIPIDEMIA, UNSPECIFIED (7) Dehydration Assessment/Plan: IV fluids; F/u Is and OS, daily weight, electrolytes, BUN/Cr. Code(s): E86.0 - DEHYDRATION Assessment/Plan CCU time spent evaluating pt, formulating plan: 75 minutes.
[2018-04-14] MEDS ORDERED: PT OWN MED DRAWER 7, Y5N ONE (19:55)
[2018-04-14] MEDS: methylPREDNISolone NA SUCC 40 MG/1 ML VIAL IVPUSH SCH (19:56)
[2018-04-15] MEDS ORDERED: PT OWN MED DRAWER 7, Y5N ONE ×3 (00:27→18:29)
[2018-04-15] MEDS: methylPREDNISolone NA SUCC 40 MG/1 ML VIAL IVPUSH SCH ×4 (01:06→21:04)
[2018-04-15] MEDS: MEROPENEM 500 MG in DEXTROSE 5%-WATER 100 ML IVPB SCH ×3 (01:06→18:33)
[2018-04-15] MEDS: INSULIN (NOVOLOG) ASPART 100 UNITS/ML 10ML VIAL SQ SCH ×4 (06:00→21:07)
[2018-04-15] MEDS: morphine SULFATE IMMEDIATE RELEASE 30 MG TAB PO PRN ×3 (06:38→17:53)
[2018-04-15] MEDS: ALBUTEROL SO4 2.5/IPRATROPIUM 0.5 INH SOL 3 ML VIAL.NEB. NEB SCH ×4 (07:30→21:05)
[2018-04-15 08:11] LABS: BASO % 0.2 % (0-2.0); HEMATOCRIT 32.2 % (32.4-45.2); HEMOGLOBIN 10.6 GM/dL (10.7-15.3); LYMPH % 4.1 % (8-40); MCH 26.6 pg (25.7-33.7); MEAN CELL VOLUME 80.7 fl (80-96); MEAN PLT VOLUME 8.7 fl (7.5-11.1); MONO % 3.8 % (3.8-10.2); NEUT % 91.9 % (42.8-82.8); PLATELET COUNT 178 K/MM3 (134-434); RBC 3.99 M/mm3 (3.60-5.2); RDW 18.1 % (11.6-15.6); WHITE BLOOD COUNT 5.5 K/mm3 (4.0-10.0)
[2018-04-15 08:45] LABS: ALBUMIN 2.6 g/dl (3.4-5.0); ALK PHOS 112 U/L (45-117); ANION GAP 4 MMOL/L (8-16); BILIRUBIN,TOTAL 0.4 mg/dL (0.2-1); BLOOD UREA NITROGEN 38 mg/dL (7-18); CALCIUM 8.4 mg/dL (8.5-10.1); CHLORIDE 100 mmol/L (98-107); CO2 33 mmol/L (21-32); CREATININE 1.6 mg/dL (0.55-1.3); GLUCOSE,RANDOM 162 mg/dL (74-106); MAGNESIUM 2.5 mg/dL (1.8-2.4); PHOSPHOROUS 2.8 mg/dL (2.5-4.9); POTASSIUM 4.8 mmol/L (3.5-5.1); SGOT/AST 9 U/L (15-37); SGPT/ALT 12 U/L (13-61); SODIUM 137 mmol/L (136-145); TOT PROT 5.7 g/dl (6.4-8.2)
[2018-04-15] MEDS ORDERED: guaiFENesin 200 MG/10 ML 10 ML UNIT-DOSE CUPS PO PRN (08:56)
--- NOTE | 2018-04-15 08:56 | PN ---
Progress Note (short form) - Note Progress Note: much better today awake, alert, anxious CBC, BMP 04/15/18 07:36 04/15/18 07:36 Vital Signs Period Temp Pulse Resp BP Sys/Gottlieb Pulse Ox Last 24 Hr 98.4 F-98.8 F 59-79 14-19 109-150/60-92 93-100 S1s2 rrr lungs scattered rhonchi and, thick yellow sputum upon coughing abd obese, soft tr edema aaox3 hypercapnic respiratory failure morbid obesity salbador copd exacerbation possible underlying pna recent e.coli bactermia niddm cont bipap at night at least iv steroids iv abx nebulizers gi/dvt prophylaxis advance diet chest pt robitussin physical therapy transfer as per icu team Problem List - Problems (1) Acute respiratory failure with hypoxia and hypercapnia Code(s): J96.01 - ACUTE RESPIRATORY FAILURE WITH HYPOXIA; J96.02 - ACUTE RESPIRATORY FAILURE WITH HYPERCAPNIA (2) CAD (coronary artery disease) Code(s): I25.10 - ATHSCL HEART DISEASE OF [place] CORONARY ARTERY W/O ANG PCTRS Qualifiers: Coronary Disease-Associated Artery/Lesion type: [place] artery Associated angina: without angina (3) Obesity Code(s): E66.9 - OBESITY, UNSPECIFIED Qualifiers: Obesity type: due to excess calories Obesity classification: adult class 3 (BMI >= 40) Body mass index: BMI 60.0-69.9 (4) SANGITA (acute kidney injury) Code(s): N17.9 - ACUTE KIDNEY FAILURE, UNSPECIFIED (5) Cellulitis Code(s): L03.90 - CELLULITIS, UNSPECIFIED Qualifiers: Site of cellulitis: extremity Site of cellulitis of extremity: lower extremity Laterality: right Qualified Code(s): L03.115 - Cellulitis of right lower limb (6) Chronic pain Code(s): G89.29 - OTHER CHRONIC PAIN Qualifiers: Chronic pain type: chronic pain syndrome Qualified Code(s): G89.4 - Chronic pain syndrome (7) Diabetes mellitus Code(s): E11.9 - TYPE 2 DIABETES MELLITUS WITHOUT COMPLICATIONS Qualifiers: Diabetes mellitus type: type 2 Diabetes mellitus health assessment and treatment teacher insulin use: with health assessment and treatment teacher use (8) Limb deformities, congenital Code(s): 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
--- NOTE | 2018-04-15 09:32 | PN ---
Progress Note, Physician History of Present Illness: AWAKE AND ALERT SEATED IN BED EATING BREAKFAST BREATHING NON-LABORED ON RA + HARSH COUGH TEMPS REMAIN DOWN AFEBRILE - Current Medication List Current Medications: Active Medications Albuterol/Ipratropium (Duoneb -) 1 amp NEB RQID [facility] Last Admin: 04/15/18 07:30 Dose: 1 amp Aspirin (Asa -) 81 mg PO DAILY [facility] Last Admin: 04/14/18 09:42 Dose: 81 mg Clopidogrel Bisulfate (Plavix -) 75 mg PO DAILY [facility] Last Admin: 04/14/18 09:42 Dose: 75 mg Docusate Sodium (Colace -) 300 mg PO DAILY [facility] Last Admin: 04/14/18 09:42 Dose: 300 mg Enoxaparin Sodium (Lovenox -) 40 mg SQ DAILY [facility] Last Admin: 04/14/18 09:41 Dose: 40 mg Guaifenesin (Robitussin -) 10 ml PO Q6H PRN PRN Reason: COUGH Meropenem 500 mg/ Dextrose 100 mls @ 200 mls/hr IVPB Q8H-IV [facility] Last Admin: 04/15/18 01:06 Dose: 200 mls/hr Insulin Aspart (Novolog Vial) 1 units SQ [facility]; Protocol Last Admin: 04/15/18 06:00 Dose: 2 unit Losartan Potassium (Cozaar -) 50 mg PO DAILY [facility] Last Admin: 04/14/18 11:13 Dose: 50 mg Methylprednisolone Sodium Succinate (Solu-Medrol -) 60 mg IVPUSH Q8H-IV [facility] Last Admin: 04/15/18 01:06 Dose: 60 mg Morphine Sulfate (Msir -) 15 mg PO Q6H PRN PRN Reason: PAIN LEVEL 7 - 10 Last Admin: 04/15/18 06:38 Dose: 15 mg Pantoprazole Sodium (Protonix -) 20 mg PO DAILY [facility] - Objective Vital Signs: Vital Signs Temperature 98.8 F 04/14/18 14:00 Pulse Rate 63 04/15/18 08:15 Respiratory Rate 04/15/18 06:00 Blood Pressure 139/72 04/15/18 06:00 O2 Sat by Pulse Oximetry (%) 98 04/15/18 08:15 Constitutional: Yes: No Distress, Obese Cardiovascular: Yes: Regular Rate and Rhythm, S1, S2 Respiratory: Yes: Diminished Gastrointestinal: Yes: Normal Bowel Sounds, Soft, Abdomen, Obese. No: Tenderness Extremities: Yes: Other (+ CHRONIC VENOUS STASIS DERMATITIS; R LE PAINFUL WHEN MOVED; NO DRAINAGE/ WEEPAGE) Edema: LLE: 2+, RLE: 2+ Labs: CBC, BMP 04/15/18 07:36 04/15/18 07:36 INR, PTT INR 1.06 (0.83-1.09) 04/13/18 05:20 Assessment/Plan RESP FAILURE IMPROVED FEVER R/O SEPSIS HX ESBL BACTEREMIA/ SEPSIS CHRONICALLY INFECTED R TKR MORBID OBESITY AWAIT C/S CONTINUE EMPIRIC MEROPENEM
[2018-04-15] MEDS: ENOXAPARIN NA (PORCINE) 40 MG/0.4 ML DISP.SYRIN SQ SCH (10:31)
[2018-04-15] MEDS: PANTOPRAZOLE 20 MG TABLET (FP) PO SCH (10:32)
[2018-04-15] MEDS: LOSARTAN POTASSIUM 50 MG TABLET (FP) PO SCH (10:32)
[2018-04-15] MEDS: ASPIRIN 81 MG CHEWABLE TABLETS PO SCH (10:33)
[2018-04-15] MEDS: DOCUSATE SODIUM 100 MG CAPSULE (FP) PO SCH (10:33)
[2018-04-15] MEDS: CLOPIDOGREL BISULFATE 75 MG TABLET (FP) PO SCH (10:33)
[2018-04-15 11:33] LABS: ACANTHOCYTES 0; ANISOCYTOSIS 0; HELMET CELLS 0; HOWELL-JOLLY BODIES 0; MACROCYTOSIS 0; OVALOCYTE 0; PLATELET ESTIMATE NORMAL; ROULEAU 0; SICKELED CELLS 0; TARGET CELLS 0; TEAR DROP CELLS 0; TOXIC GRANULATION 0
--- NOTE | 2018-04-15 12:30 | PN ---
Teaching Attending Note Name of Resident: Melina Sanchez ATTENDING PHYSICIAN STATEMENT I saw and evaluated the patient. I reviewed the resident's note and discussed the case with the resident. I agree with the resident's findings and plan as documented. SUBJECTIVE: Patient seen and examined in the ICU. Mental status much improved. NIPPV overnight. NC O2. ABG with improving respiratory acidosis. OBJECTIVE: Intake & Output 04/12/18 04/13/18 04/14/18 04/15/18 23:59 23:59 23:59 23:59 Intake Total 450 100 Output Total 500 50 Balance -50 50 Weight 335 lb Last Vital Signs Temp Pulse Resp BP Pulse Ox 98 F 64 22 H 140/105 H 100 04/15/18 10:00 04/15/18 10:00 04/15/18 10:00 04/15/18 10:00 04/15/18 10:00 Active Medications Albuterol/Ipratropium (Duoneb -) 1 amp NEB RQID [facility] Last Admin: 04/15/18 11:30 Dose: 1 amp Aspirin (Asa -) 81 mg PO DAILY [facility] Last Admin: 04/15/18 10:33 Dose: 81 mg Clopidogrel Bisulfate (Plavix -) 75 mg PO DAILY [facility] Last Admin: 04/15/18 10:33 Dose: 75 mg Docusate Sodium (Colace -) 300 mg PO DAILY [facility] Last Admin: 04/15/18 10:33 Dose: 300 mg Enoxaparin Sodium (Lovenox -) 40 mg SQ DAILY [facility] Last Admin: 04/15/18 10:31 Dose: 40 mg Guaifenesin (Robitussin -) 10 ml PO Q6H PRN PRN Reason: COUGH Meropenem 500 mg/ Dextrose 100 mls @ 200 mls/hr IVPB Q8H-IV [facility] Last Admin: 04/15/18 01:06 Dose: 200 mls/hr Insulin Aspart (Novolog Vial) 1 units SQ ACHS [facility]; Protocol Last Admin: 04/15/18 06:00 Dose: 2 unit Losartan Potassium (Cozaar -) 50 mg PO DAILY [facility] Last Admin: 04/15/18 10:32 Dose: 50 mg Methylprednisolone Sodium Succinate (Solu-Medrol -) 60 mg IVPUSH BID [facility] Morphine Sulfate (Msir -) 15 mg PO Q6H PRN PRN Reason: PAIN LEVEL 7 - 10 Last Admin: 04/15/18 11:43 Dose: 15 mg Pantoprazole Sodium (Protonix -) 20 mg PO DAILY [facility] Last Admin: 04/15/18 10:32 Dose: 20 mg Gen: more awake, alert Heart: RRR Lung: decreased breath sounds at the bases Abd: soft, nontender, obese Ext: + edema Laboratory Results - last 24 hr 04/14/18 04/15/18 04/15/18 21:21 05:50 07:36 WBC 5.5 RBC 3.99 Hgb 10.6 L Hct 32.2 L MCV 80.7 MCH 26.6 MCHC 33.0 RDW 18.1 H Plt Count 178 MPV 8.7 Absolute Neuts (auto) 5.1 Neutrophils % 91.9 H Neutrophils % (Manual) 96.0 H Band Neutrophils % 0.0 Lymphocytes % 4.1 L Lymphocytes % (Manual) 1.0 L D Monocytes % 3.8 Monocytes % (Manual) 3 L D Eosinophils % 0.0 Eosinophils % (Manual) 0.0 Basophils % 0.2 Basophils % (Manual) 0.0 Myelocytes % (Man) 0 Promyelocytes % (Man) 0 Blast Cells % (Manual) 0 Nucleated RBC % 0 Metamyelocytes 0 Hypochromia 0 Toxic Granulation 0 Dohle Bodies 0 Platelet Estimate Normal Polychromasia 0 Poikilocytosis 0 Basophilic Stippling 0 Anisocytosis 0 Microcytosis 0 Macrocytosis 0 Spherocytes 0 Sickle Cells 0 Target Cells 0 Tear Drop Cells 0 Ovalocytes 0 Stomatocytes 0 Helmet Cells 0 [place] Bodies 0 Hughes Rings 0 Fabian Cells 0 Acanthocytes (Spur) 0 Rouleaux 0 Fragmented RBCs 0 Schistocytes 0 Sodium Potassium Chloride Carbon Dioxide Anion Gap BUN Creatinine Creat Clearance w eGFR POC Glucometer 221 149 Random Glucose Calcium Phosphorus Magnesium Total Bilirubin AST ALT Alkaline Phosphatase Total Protein Albumin 04/15/18 07:36 WBC RBC Hgb Hct MCV MCH MCHC RDW Plt Count MPV Absolute Neuts (auto) Neutrophils % Neutrophils % (Manual) Band Neutrophils % Lymphocytes % Lymphocytes % (Manual) Monocytes % Monocytes % (Manual) Eosinophils % Eosinophils % (Manual) Basophils % Basophils % (Manual) Myelocytes % (Man) Promyelocytes % (Man) Blast Cells % (Manual) Nucleated RBC % Metamyelocytes Hypochromia Toxic Granulation Dohle Bodies Platelet Estimate Polychromasia Poikilocytosis Basophilic Stippling Anisocytosis Microcytosis Macrocytosis Spherocytes Sickle Cells Target Cells Tear Drop Cells Ovalocytes Stomatocytes Helmet Cells [place] Bodies Hughes Rings Fabian Cells Acanthocytes (Spur) Rouleaux Fragmented RBCs Schistocytes Sodium 137 Potassium 4.8 Chloride 100 Carbon Dioxide 33 H Anion Gap 4 L BUN 38 H Creatinine 1.6 H Creat Clearance w eGFR 31.78 POC Glucometer Random Glucose 162 H Calcium 8.4 L Phosphorus 2.8 Magnesium 2.5 H Total Bilirubin 0.4 AST 9 L ALT 12 L Alkaline Phosphatase 112 Total Protein 5.7 L Albumin 2.6 L ASSESSMENT AND PLAN: Acute on Chronic Hypoxic and Hypercapneic Respiratory Failure Acute COPD Exacerbation r/o Pneumonia r/o Sepsis Acute on Chronic Renal Failure Pericardial Effusion DM - Taper medrol - inhaled bronchodilators standing and PRN - O2 to keep Spo2 88-92% - monitor ABG - NIPPV QHS and PRN - ABX per ID - monitor urine output, creatinine - PO as tolerated - Aspiration precautions - will need outpt PFTs, PSG - DVT prophylaxis - 4W / [address] Juarez
[2018-04-15] MEDS ORDERED: morphine SO4 SUSTAINED ACTING 15 MG TABLET.SA PO ONE (15:26)
--- NOTE | 2018-04-15 15:34 | PN ---
Physical Exam: SUBJECTIVE: Patient seen and examined this morning in ICU. Used Bipap overnight. No new complaints. No acute overnight events. OBJECTIVE: Vital Signs Period Temp Pulse Resp BP Sys/Gottlieb Pulse Ox Last 24 Hr 98 F 59-94 14-22 109-148/60-105 93-100 GENERAL: A&Ox3, NAD HEAD: NCAT EYES: PERRL, EOMI ENT: Moist mucous membranes NECK: Supple LUNGS: Diminished breath sounds at the bases HEART: Regular rate and rhythm, normal S1 and S2 without murmur ABDOMEN: Obese, Soft, nontender, not distended, + bowel sounds, no guarding UPPER EXTREMITIES: Atrophic and Contracted RUE LOWER EXTREMITIES: 1+ edema NEUROLOGICAL: Cranial nerves II through XII grossly intact. Normal speech. SKIN: Warm, dry, Anterior [place] Hyperpigmentation Laboratory Results - last 24 hr 04/14/18 04/15/18 04/15/18 21:21 05:50 07:36 WBC 5.5 RBC 3.99 Hgb 10.6 L Hct 32.2 L MCV 80.7 MCH 26.6 MCHC 33.0 RDW 18.1 H Plt Count 178 MPV 8.7 Absolute Neuts (auto) 5.1 Neutrophils % 91.9 H Neutrophils % (Manual) 96.0 H Band Neutrophils % 0.0 Lymphocytes % 4.1 L Lymphocytes % (Manual) 1.0 L D Monocytes % 3.8 Monocytes % (Manual) 3 L D Eosinophils % 0.0 Eosinophils % (Manual) 0.0 Basophils % 0.2 Basophils % (Manual) 0.0 Myelocytes % (Man) 0 Promyelocytes % (Man) 0 Blast Cells % (Manual) 0 Nucleated RBC % 0 Metamyelocytes 0 Hypochromia 0 Toxic Granulation 0 Dohle Bodies 0 Platelet Estimate Normal Polychromasia 0 Poikilocytosis 0 Basophilic Stippling 0 Anisocytosis 0 Microcytosis 0 Macrocytosis 0 Spherocytes 0 Sickle Cells 0 Target Cells 0 Tear Drop Cells 0 Ovalocytes 0 Stomatocytes 0 Helmet Cells 0 [place] Bodies 0 Meridian Rings 0 [place] Cells 0 Acanthocytes (Spur) 0 Rouleaux 0 Fragmented RBCs 0 Schistocytes 0 Sodium Potassium Chloride Carbon Dioxide Anion Gap BUN Creatinine Creat Clearance w eGFR POC Glucometer 221 149 Random Glucose Calcium Phosphorus Magnesium Total Bilirubin AST ALT Alkaline Phosphatase Total Protein Albumin 04/15/18 04/15/18 07:36 12:55 WBC RBC Hgb Hct MCV MCH MCHC RDW Plt Count MPV Absolute Neuts (auto) Neutrophils % Neutrophils % (Manual) Band Neutrophils % Lymphocytes % Lymphocytes % (Manual) Monocytes % Monocytes % (Manual) Eosinophils % Eosinophils % (Manual) Basophils % Basophils % (Manual) Myelocytes % (Man) Promyelocytes % (Man) Blast Cells % (Manual) Nucleated RBC % Metamyelocytes Hypochromia Toxic Granulation Dohle Bodies Platelet Estimate Polychromasia Poikilocytosis Basophilic Stippling Anisocytosis Microcytosis Macrocytosis Spherocytes Sickle Cells Target Cells Tear Drop Cells Ovalocytes Stomatocytes Helmet Cells [place]ov[place] Bodies Meridian Rings [place] Cells Acanthocytes (Spur) Rouleaux Fragmented RBCs Schistocytes Sodium 137 Potassium 4.8 Chloride 100 Carbon Dioxide 33 H Anion Gap 4 L BUN 38 H Creatinine 1.6 H Creat Clearance w eGFR 31.78 POC Glucometer 210 Random Glucose 162 H Calcium 8.4 L Phosphorus 2.8 Magnesium 2.5 H Total Bilirubin 0.4 AST 9 L ALT 12 L Alkaline Phosphatase 112 Total Protein 5.7 L Albumin 2.6 L Microbiology 04/13/18 12:55 Blood - Peripheral Venous Blood Culture - Preliminary NO GROWTH OBTAINED AFTER 48 HOURS, INCUBATION TO CONTINUE FOR 3 DAYS. 04/13/18 11:15 Blood - Peripheral Venous Blood Culture - Preliminary NO GROWTH OBTAINED AFTER 48 HOURS, INCUBATION TO CONTINUE FOR 3 DAYS. 04/13/18 15:00 Urine - Urine Clean Catch Urine Culture - Final Contaminated: Please Repeat Active Medications Albuterol/Ipratropium (Duoneb -) 1 amp NEB RQID [facility] Last Admin: 04/15/18 11:30 Dose: 1 amp Aspirin (Asa -) 81 mg PO DAILY [facility] Last Admin: 04/15/18 10:33 Dose: 81 mg Clopidogrel Bisulfate (Plavix -) 75 mg PO DAILY [facility] Last Admin: 04/15/18 10:33 Dose: 75 mg Docusate Sodium (Colace -) 300 mg PO DAILY [facility] Last Admin: 04/15/18 10:33 Dose: 300 mg Enoxaparin Sodium (Lovenox -) 40 mg SQ DAILY [facility] Last Admin: 04/15/18 10:31 Dose: 40 mg Guaifenesin (Robitussin -) 10 ml PO Q6H PRN PRN Reason: COUGH Meropenem 500 mg/ Dextrose 100 mls @ 200 mls/hr IVPB Q8H-IV [facility] Last Admin: 04/15/18 10:04 Dose: 200 mls/hr Insulin Aspart (Novolog Vial) 1 units SQ ACHS [facility]; Protocol Last Admin: 04/15/18 13:04 Dose: 4 unit Losartan Potassium (Cozaar -) 50 mg PO DAILY [facility] Last Admin: 04/15/18 10:32 Dose: 50 mg Methylprednisolone Sodium Succinate (Solu-Medrol -) 60 mg IVPUSH BID [facility] Last Admin: 04/15/18 13:06 Dose: 60 mg Morphine Sulfate (Msir -) 15 mg PO Q6H PRN PRN Reason: PAIN LEVEL 7 - 10 Last Admin: 04/15/18 11:43 Dose: 15 mg Pantoprazole Sodium (Protonix -) 20 mg PO DAILY [facility] Last Admin: 04/15/18 10:32 Dose: 20 mg ASSESSMENT/PLAN: 72 y/o F with PMHx of CAD s/p Stents, HTN, HLD, COPD, DM, MRSA cellulitis, Former smoker (Quit 15 years ago), who was recently transferred to [facility] for possible Sepsis, was BIBEMS from [facility] [address] for AMS and will be monitored in ICU for Acute Respiratory Failure. #Neuro Lethargy, Improving -Likely due to Hypercapnia -Aspiration precautions -Continue to monitor #Cardio Pericardial Effusion Elevated BNP Hx of CAD s/p Stents, HTN, HLD -Trop < 0.02 -BNP 2647 -EKG: SINUS RHYTHM WITH 1ST DEGREE A-V BLOCK, VR 78, QTc 421 -ECHO: LV EF is normal -Continue ASA, Clopidogrel #Pulmonary Acute Hypoxic Hypercapnic Respiratory Failure Hx of COPD -Likely due to COPD Exacerbation, Components of NIKHIL -ABG Improving -Does not tolerate Bipap overnight; Monitor on Nasal canula -Bipap HS -CXR: Questionable left pleural effusion. No pneumothorax is seen. No evidence of airspace opacities. -Albuterol/Ipratropium QID -IV Methylprednisolone decreased to 60mg Q12H -Supplemental O2 to maintain SpO2 88-92% -Will need PFTs, PSG once acute process resolves #GI Elevated Alk Phos Morbid Obesity -Continue to monitor; Will consider further imaging if continues to rise -IV Pantoprazole 40mg Daily -Bowel regimen via Docusate -Will need outpatient follow up for tighter weight control, possibly bariatric surgery #Renal Elevated Cr, Improving; Baseline 1.5-1.6 Hyperphosphatemia, Corrected Hyperkalemia, Corrected -Monitor urine output, creatinine #Heme -No Active issues, Continue to monitor #Endo Hx of DM -BGMs ISS ACHS #ID Recently treated for Sepsis; R/O Sepsis Hx of MRSA cellulitis -AFebrile, Without elevated WBC Count -LA 0.7 -UA, Blood and urine Cx pending -Dr. Jennings Consulted -IV Meropenem 500mg Q8H (started on 04/13) #FEN -No Standing Fluids -Replete lytes PRN -NPO; Full Liquid diet for lunch #PPx -DVT: Enoxaparin -GI: Pantoprazole Code Status: Full Code Dispo: Transfer to Tele Visit type - Emergency Visit Emergency Visit: Yes ED Registration Date: 04/13/18 Care time: The patient presented to the Emergency Department on the above date and was hospitalized for further evaluation of their emergent condition. - New Patient This patient is new to me today: No - Critical Care Critical Care patient: Yes Total Critical Care Time (in minutes): 36 Critical Care Statement: The care of this patient involved high complexity decision making to prevent further life threatening deterioration of the patient 's condition and/or to evaluate & treat vital organ system(s) failure or risk of failure.
[2018-04-15] MEDS ORDERED: morphine SULFATE IMMEDIATE RELEASE 30 MG TAB PO ONE (18:04)
[2018-04-15] MEDS: morphine SO4 SUSTAINED ACTING 30 MG TABLET.SA PO SCH (21:03)
[2018-04-15] MEDS: NYSTATIN POWDER 100,000 UNITS/GM - 15 GM TOPICAL POWDER TP SCH (22:45)
--- NOTE | 2018-04-16 01:37 | PN ---
Progress Note, Physician Chief Complaint: Pt alert; anxious; breathing easier; c/o bilateral leg pains History of Present Illness: The patient is a 72 year old white woman, with a significant past medical history of morbid obesity, HTN, HLD, DM, diastolic CHF, anxiety/panic, chronically infected right TKR, and recent admission for sepsis (was transferred at that time to [facility] for further care), who presents to the emergency department via EMS from [facility] with, AMS. Patients son at bedside notes, today she was increasingly lethargic and short of breath, prompting her arrival. As per [facility], the patient was O2 saturation was 84-88% on room air. History was obtained by son at bedside and via NH secondary to patients lethargy. - Current Medication List Current Medications: Active Medications Albuterol/Ipratropium (Duoneb -) 1 amp NEB RQID [facility] Last Admin: 04/15/18 21:05 Dose: 1 amp Aspirin (Asa -) 81 mg PO DAILY [facility] Last Admin: 04/15/18 10:33 Dose: 81 mg Clopidogrel Bisulfate (Plavix -) 75 mg PO DAILY [facility] Last Admin: 04/15/18 10:33 Dose: 75 mg Docusate Sodium (Colace -) 300 mg PO DAILY [facility] Last Admin: 04/15/18 10:33 Dose: 300 mg Enoxaparin Sodium (Lovenox -) 40 mg SQ DAILY [facility] Last Admin: 04/15/18 10:31 Dose: 40 mg Guaifenesin (Robitussin -) 10 ml PO Q6H PRN PRN Reason: COUGH Meropenem 500 mg/ Dextrose 100 mls @ 200 mls/hr IVPB Q8H-IV [facility] Last Admin: 04/15/18 18:33 Dose: 200 mls/hr Insulin Aspart (Novolog Vial) 1 units SQ ACHS [facility]; Protocol Last Admin: 04/15/18 21:07 Dose: 4 unit Losartan Potassium (Cozaar -) 50 mg PO DAILY [facility] Last Admin: 04/15/18 10:32 Dose: 50 mg Methylprednisolone Sodium Succinate (Solu-Medrol -) 60 mg IVPUSH BID [facility] Last Admin: 04/15/18 21:04 Dose: 60 mg Morphine Sulfate (Msir -) 30 mg PO Q6H PRN PRN Reason: PAIN LEVEL 7 - 10 Morphine Sulfate (Ms Contin -) 60 mg PO BID [facility] Last Admin: 04/15/18 21:03 Dose: 60 mg Nystatin (Nystop Powder -) 1 applic TP DAILY [facility] Pantoprazole Sodium (Protonix -) 20 mg PO DAILY [facility] Last Admin: 04/15/18 10:32 Dose: 20 mg - Objective Vital Signs: Vital Signs Temperature 97.5 F L 04/15/18 22:00 Pulse Rate 78 04/15/18 22:00 Respiratory Rate 21 H 04/15/18 22:00 Blood Pressure 166/72 04/15/18 22:00 O2 Sat by Pulse Oximetry (%) 95 04/16/18 00:12 Constitutional: Yes: Anxious, Obese Eyes: Yes: WNL HENT: Yes: WNL Neck: Yes: WNL Cardiovascular: Yes: S1, S2, S4 Respiratory: Yes: SOB on Exertion Gastrointestinal: Yes: Soft, Abdomen, Obese ...Rectal Exam: Yes: Deferred Genitourinary: No: Anuria Breast(s): Yes: WNL Musculoskeletal: Yes: Joint Stiffness, Muscle Pain Extremities: Yes: WNL Edema: No Peripheral Pulses WNL: Yes Neurological: Yes: Alert, Oriented Psychiatric: Yes: Alert, Oriented, Agitated Labs: CBC, BMP 04/15/18 07:36 04/15/18 07:36 INR, PTT INR 1.06 (0.83-1.09) 04/13/18 05:20 Abnormal Lab Results 04/15/18 04/15/18 07:36 07:36 Hgb 10.6 L Hct 32.2 L RDW 18.1 H Neutrophils % 91.9 H Neutrophils % (Manual) 96.0 H Lymphocytes % 4.1 L Lymphocytes % (Manual) 1.0 L D Monocytes % (Manual) 3 L D Carbon Dioxide 33 H Anion Gap 4 L BUN 38 H Creatinine 1.6 H Random Glucose 162 H Calcium 8.4 L Magnesium 2.5 H AST 9 L ALT 12 L Total Protein 5.7 L Albumin 2.6 L Problem List - Problems (1) Morbid obesity Code(s): E66.01 - MORBID (SEVERE) OBESITY DUE TO EXCESS CALORIES (2) Chronic renal insufficiency Code(s): N18.9 - CHRONIC KIDNEY DISEASE, UNSPECIFIED (3) Acute respiratory failure with hypoxia and hypercapnia Assessment/Plan: Continue steroids, bronchodilators, and O2 per rn orthopedic. Antibiotics per ID. Code(s): J96.01 - ACUTE RESPIRATORY FAILURE WITH HYPOXIA; J96.02 - ACUTE RESPIRATORY FAILURE WITH HYPERCAPNIA (4) COPD exacerbation Code(s): J44.1 - CHRONIC OBSTRUCTIVE PULMONARY DISEASE W (ACUTE) EXACERBATION (5) HTN (hypertension) Assessment/Plan: On losartan; f/u BP serially. ECHO: normal LVEF; repeat when pt positioning allows additional views (unable to assess chamber sizes, wall motion, valvular status). Code(s): I10 - ESSENTIAL (PRIMARY) HYPERTENSION Qualifiers: (6) Hyperlipidemia Assessment/Plan: f/u lipid profile. Code(s): E78.5 - HYPERLIPIDEMIA, UNSPECIFIED (7) Dehydration Assessment/Plan: IV fluids; F/u Is and OS, daily weight, electrolytes, BUN/Cr. Code(s): E86.0 - DEHYDRATION (8) Hypothyroid Assessment/Plan: f/u TSH. Code(s): E03.9 - HYPOTHYROIDISM, UNSPECIFIED Assessment/Plan CCU time spent evaluating pt, formulating plan: 35minutes.
[2018-04-16] MEDS: MEROPENEM 500 MG in DEXTROSE 5%-WATER 100 ML IVPB SCH ×3 (03:00→17:14)
[2018-04-16] MEDS ORDERED: PT OWN MED DRAWER 7, Y5N ONE (06:28)
[2018-04-16] MEDS: INSULIN (NOVOLOG) ASPART 100 UNITS/ML 10ML VIAL SQ SCH ×2 (06:36→13:42)
[2018-04-16 07:06] LABS: BASO % 0.4 % (0-2.0); HEMATOCRIT 32.7 % (32.4-45.2); HEMOGLOBIN 10.8 GM/dL (10.7-15.3); LYMPH % 3.6 % (8-40); MCH 26.8 pg (25.7-33.7); MEAN CELL VOLUME 81.1 fl (80-96); MEAN PLT VOLUME 9.1 fl (7.5-11.1); MONO % 3.6 % (3.8-10.2); NEUT % 92.4 % (42.8-82.8); PLATELET COUNT 164 K/MM3 (134-434); RBC 4.03 M/mm3 (3.60-5.2); RDW 18.5 % (11.6-15.6); WHITE BLOOD COUNT 5.5 K/mm3 (4.0-10.0)
[2018-04-16 07:16] LABS: ALBUMIN 2.6 g/dl (3.4-5.0); ALK PHOS 104 U/L (45-117); ANION GAP 4 MMOL/L (8-16); BILIRUBIN,TOTAL 0.4 mg/dL (0.2-1); BLOOD UREA NITROGEN 41 mg/dL (7-18); CALCIUM 8.6 mg/dL (8.5-10.1); CHLORIDE 101 mmol/L (98-107); CO2 32 mmol/L (21-32); CREATININE 1.5 mg/dL (0.55-1.3); GLUCOSE,RANDOM 204 mg/dL (74-106); MAGNESIUM 2.4 mg/dL (1.8-2.4); PHOSPHOROUS 2.9 mg/dL (2.5-4.9); POTASSIUM 5.3 mmol/L (3.5-5.1); SGOT/AST 12 U/L (15-37); SGPT/ALT 12 U/L (13-61); SODIUM 137 mmol/L (136-145); TOT PROT 5.4 g/dl (6.4-8.2)
--- NOTE | 2018-04-16 08:14 | PN ---
Progress Note (short form) - Note Progress Note: PULM/CCM Pt seen & examined in the ICU. Pt CA+OX3. Exquisite chronic LE discomfort continues. Active Medications Albuterol/Ipratropium (Duoneb -) 1 amp NEB RQID [facility] Last Admin: 04/16/18 08:37 Dose: 1 amp Aspirin (Asa -) 81 mg PO DAILY [facility] Last Admin: 04/16/18 10:13 Dose: 81 mg Clopidogrel Bisulfate (Plavix -) 75 mg PO DAILY [facility] Last Admin: 04/16/18 10:09 Dose: 75 mg Docusate Sodium (Colace -) 300 mg PO DAILY [facility] Last Admin: 04/16/18 10:12 Dose: 300 mg Enoxaparin Sodium (Lovenox -) 40 mg SQ DAILY [facility] Last Admin: 04/16/18 10:12 Dose: 40 mg Guaifenesin (Robitussin -) 10 ml PO Q6H PRN PRN Reason: COUGH Meropenem 500 mg/ Dextrose 100 mls @ 200 mls/hr IVPB Q8H-IV [facility] Last Admin: 04/16/18 10:11 Dose: 200 mls/hr Insulin Aspart (Novolog Vial) 1 units SQ ACHS [facility]; Protocol Last Admin: 04/16/18 06:36 Dose: 2 unit Losartan Potassium (Cozaar -) 50 mg PO DAILY [facility] Last Admin: 04/16/18 10:12 Dose: 50 mg Methylprednisolone Sodium Succinate (Solu-Medrol -) 60 mg IVPUSH BID [facility] Last Admin: 04/16/18 10:11 Dose: 60 mg Morphine Sulfate (Msir -) 30 mg PO Q6H PRN PRN Reason: PAIN LEVEL 7 - 10 Morphine Sulfate (Ms Contin -) 60 mg PO BID [facility] Last Admin: 04/16/18 10:10 Dose: 60 mg Nystatin (Nystop Powder -) 1 applic TP DAILY [facility] Last Admin: 04/16/18 10:09 Dose: 1 applic Pantoprazole Sodium (Protonix -) 20 mg PO DAILY [facility] Last Admin: 04/16/18 10:11 Dose: 20 mg Vital Signs Period Temp Pulse Resp BP Sys/Gottlieb Pulse Ox Last 24 Hr 97.5 F-98.1 F 64-82 13-23 143-186/72-103 93-97 Intake & Output 02/06/04/14/18 04/15/18 04/16/18 23:59 23:59 23:59 23:59 Intake Total 450 100 300 Output Total 500 50 500 Balance -50 50 300 -500 Weight 151.953 kg 151.953 kg GEN: [place] woman whom appears older than her stated age, unkempt & unwell, CA+OX3 HEENT: PERRL, an-icteric, MMM PULM: CTAB CV: nml S1 S2, RR, unable to appreciate any G/R/M ABD: Obese, +BS, S/S N/T N/D X4Q EXT: L UE PICC, LE: gross pedal edema, cellulitis w/ exquisite pain CBC, BMP 04/16/18 05:30 04/16/18 05:30 RECENT STUDIES TO NOTE: LE US 04/15: Impression: No DVT is identified involving either leg. CXR 04/13: Comparison study March 29, 2018. Patient is rotated to the right side. Cardiomegaly. The pulmonary vasculature is normal. Questionable left pleural effusion. No pneumothorax is seen. No evidence of airspace opacities. ASSESSMENT AND PLAN: Acute on Chronic Hypoxic and Hypercapneic Respiratory Failure Acute COPD Exacerbation r/o Pneumonia r/o Sepsis Acute on Chronic Renal Failure Pericardial Effusion DM - Careful Pain Control (Pt is prone to Hypoventilation) - Taper medrol - inhaled bronchodilators standing and PRN - O2 to keep Spo2 88-92% - monitor ABG - NIPPV QHS and PRN - ABX per ID - monitor urine output, creatinine - PO as tolerated - Aspiration precautions - will need outpt PFTs, PSG - DVT prophylaxis - 4W / 4 S monitoring DGL, ACNP-BC [facility] ICU PULM/CCM Critical Care Total Critical Care Time (in minutes): 42 Critical Care Statement: The care of this patient involved high complexity decision making to prevent further life threatening deterioration of the patient 's condition and/or to evaluate & treat vital organ system(s) failure or risk of failure.
[2018-04-16] MEDS: ALBUTEROL SO4 2.5/IPRATROPIUM 0.5 INH SOL 3 ML VIAL.NEB. NEB SCH ×5 (08:37→20:45)
[2018-04-16] MEDS: NYSTATIN POWDER 100,000 UNITS/GM - 15 GM TOPICAL POWDER TP SCH (10:09)
[2018-04-16] MEDS: CLOPIDOGREL BISULFATE 75 MG TABLET (FP) PO SCH (10:09)
[2018-04-16] MEDS: morphine SO4 SUSTAINED ACTING 30 MG TABLET.SA PO SCH ×2 (10:10→21:52)
[2018-04-16] MEDS: PANTOPRAZOLE 20 MG TABLET (FP) PO SCH (10:11)
[2018-04-16] MEDS: methylPREDNISolone NA SUCC 40 MG/1 ML VIAL IVPUSH SCH ×2 (10:11→21:54)
[2018-04-16] MEDS: LOSARTAN POTASSIUM 50 MG TABLET (FP) PO SCH (10:12)
[2018-04-16] MEDS: ENOXAPARIN NA (PORCINE) 40 MG/0.4 ML DISP.SYRIN SQ SCH (10:12)
[2018-04-16] MEDS: DOCUSATE SODIUM 100 MG CAPSULE (FP) PO SCH (10:12)
[2018-04-16 10:13] LABS: ANISOCYTOSIS 1+; MACROCYTOSIS 0
[2018-04-16] MEDS: ASPIRIN 81 MG CHEWABLE TABLETS PO SCH (10:13)
--- NOTE | 2018-04-16 10:23 | PN ---
Progress Note, Physician History of Present Illness: The patient is a 72 year old white woman, with a significant past medical history of morbid obesity, HTN, HLD, DM, diastolic CHF, anxiety/panic, chronically infected right TKR, and recent admission for sepsis (was transferred at that time to [facility] for further care), who presents to the emergency department via EMS from [facility] with, ALEXIS. Patients son at bedside notes, today she was increasingly lethargic and short of breath, prompting her arrival. As per [facility], the patient was O2 saturation was 84-88% on room air. History was obtained by son at bedside and via NH secondary to patients lethargy. - Current Medication List Current Medications: Active Medications Albuterol/Ipratropium (Duoneb -) 1 amp NEB RQID [facility] Last Admin: 04/16/18 08:37 Dose: 1 amp Aspirin (Asa -) 81 mg PO DAILY [facility] Last Admin: 04/16/18 10:13 Dose: 81 mg Clopidogrel Bisulfate (Plavix -) 75 mg PO DAILY [facility] Last Admin: 04/16/18 10:09 Dose: 75 mg Docusate Sodium (Colace -) 300 mg PO DAILY [facility] Last Admin: 04/16/18 10:12 Dose: 300 mg Enoxaparin Sodium (Lovenox -) 40 mg SQ DAILY [facility] Last Admin: 04/16/18 10:12 Dose: 40 mg Guaifenesin (Robitussin -) 10 ml PO Q6H PRN PRN Reason: COUGH Meropenem 500 mg/ Dextrose 100 mls @ 200 mls/hr IVPB Q8H-IV [facility] Last Admin: 04/16/18 10:11 Dose: 200 mls/hr Insulin Aspart (Novolog Vial) 1 units SQ ACHS [facility]; Protocol Last Admin: 04/16/18 06:36 Dose: 2 unit Losartan Potassium (Cozaar -) 50 mg PO DAILY [facility] Last Admin: 04/16/18 10:12 Dose: 50 mg Methylprednisolone Sodium Succinate (Solu-Medrol -) 60 mg IVPUSH BID [facility] Last Admin: 04/16/18 10:11 Dose: 60 mg Morphine Sulfate (Msir -) 30 mg PO Q6H PRN PRN Reason: PAIN LEVEL 7 - 10 Morphine Sulfate (Ms Contin -) 60 mg PO BID [facility] Last Admin: 04/16/18 10:10 Dose: 60 mg Nystatin (Nystop Powder -) 1 applic TP DAILY [facility] Last Admin: 04/16/18 10:09 Dose: 1 applic Pantoprazole Sodium (Protonix -) 20 mg PO DAILY [facility] Last Admin: 04/16/18 10:11 Dose: 20 mg - Objective Vital Signs: Vital Signs Temperature 98.1 F 04/16/18 02:00 Pulse Rate 82 04/16/18 08:36 Respiratory Rate 14 04/16/18 07:58 Blood Pressure 166/74 04/16/18 07:58 O2 Sat by Pulse Oximetry (%) 97 04/16/18 08:36 Eyes: Yes: WNL, Conjunctiva Clear, EOM Intact HENT: Yes: WNL, Atraumatic, Normocephalic Neck: Yes: WNL, Supple, Trachea Midline Cardiovascular: Yes: WNL, Regular Rate and Rhythm Respiratory: Yes: WNL, Regular, CTA Bilaterally Gastrointestinal: Yes: WNL, Normal Bowel Sounds Genitourinary: Yes: WNL Musculoskeletal: Yes: WNL Extremities: Yes: WNL Edema: No Integumentary: Yes: WNL Neurological: Yes: WNL, Alert, Oriented ...Motor Strength: WNL Psychiatric: Yes: WNL Labs: CBC, BMP 04/16/18 05:30 04/16/18 05:30 INR, PTT INR 1.06 (0.83-1.09) 04/13/18 05:20 Assessment/Plan - Problems (1) Morbid obesity Code(s): E66.01 - MORBID (SEVERE) OBESITY DUE TO EXCESS CALORIES (2) Chronic renal insufficiency Code(s): N18.9 - CHRONIC KIDNEY DISEASE, UNSPECIFIED (3) Acute respiratory failure with hypoxia and hypercapnia Assessment/Plan: Continue steroids, bronchodilators, and O2 per registered nurse renal. Antibiotics per ID. Code(s): J96.01 - ACUTE RESPIRATORY FAILURE WITH HYPOXIA; J96.02 - ACUTE RESPIRATORY FAILURE WITH HYPERCAPNIA (4) COPD exacerbation Code(s): J44.1 - CHRONIC OBSTRUCTIVE PULMONARY DISEASE W (ACUTE) EXACERBATION (5) HTN (hypertension) Assessment/Plan: On losartan; f/u BP serially. ECHO: normal LVEF; repeat when pt positioning allows additional views (unable to assess chamber sizes, wall motion, valvular status). Code(s): I10 - ESSENTIAL (PRIMARY) HYPERTENSION Qualifiers: (6) Hyperlipidemia Assessment/Plan: f/u lipid profile. Code(s): E78.5 - HYPERLIPIDEMIA, UNSPECIFIED (7) Dehydration Assessment/Plan: IV fluids; F/u Is and OS, daily weight, electrolytes, BUN/Cr. Code(s): E86.0 - DEHYDRATION (8) Hypothyroid Assessment/Plan: f/u TSH. Code(s): E03.9 - HYPOTHYROIDISM, UNSPECIFIED Assessment/Plan CCU time spent evaluating pt, formulating plan: 35minutes.
[2018-04-16 10:35] LABS: PLATELET ESTIMATE ADEQUATE
--- NOTE | 2018-04-16 11:26 | PN ---
Progress Note, Physician History of Present Illness: AWAKE AND ALERT SEATED IN BED BREATHING NON-LABORED ON NASAL CANNULA + COUGH TEMPS REMAIN DOWN AFEBRILE - Current Medication List Current Medications: Active Medications Albuterol/Ipratropium (Duoneb -) 1 amp NEB RQID [facility] Last Admin: 04/16/18 08:37 Dose: 1 amp Aspirin (Asa -) 81 mg PO DAILY [facility] Last Admin: 04/16/18 10:13 Dose: 81 mg Clopidogrel Bisulfate (Plavix -) 75 mg PO DAILY [facility] Last Admin: 04/16/18 10:09 Dose: 75 mg Docusate Sodium (Colace -) 300 mg PO DAILY [facility] Last Admin: 04/16/18 10:12 Dose: 300 mg Enoxaparin Sodium (Lovenox -) 40 mg SQ DAILY [facility] Last Admin: 04/16/18 10:12 Dose: 40 mg Guaifenesin (Robitussin -) 10 ml PO Q6H PRN PRN Reason: COUGH Meropenem 500 mg/ Dextrose 100 mls @ 200 mls/hr IVPB Q8H-IV [facility] Last Admin: 04/16/18 10:11 Dose: 200 mls/hr Insulin Aspart (Novolog Vial) 1 units SQ ACHS [facility]; Protocol Last Admin: 04/16/18 06:36 Dose: 2 unit Losartan Potassium (Cozaar -) 50 mg PO DAILY [facility] Last Admin: 04/16/18 10:12 Dose: 50 mg Methylprednisolone Sodium Succinate (Solu-Medrol -) 60 mg IVPUSH BID [facility] Last Admin: 04/16/18 10:11 Dose: 60 mg Morphine Sulfate (Msir -) 30 mg PO Q6H PRN PRN Reason: PAIN LEVEL 7 - 10 Morphine Sulfate (Ms Contin -) 60 mg PO BID [facility] Last Admin: 04/16/18 10:10 Dose: 60 mg Nystatin (Nystop Powder -) 1 applic TP DAILY [facility] Last Admin: 04/16/18 10:09 Dose: 1 applic Pantoprazole Sodium (Protonix -) 20 mg PO DAILY [facility] Last Admin: 04/16/18 10:11 Dose: 20 mg - Objective Vital Signs: Vital Signs Temperature 97.6 F 04/16/18 10:00 Pulse Rate 82 04/16/18 10:00 Respiratory Rate 22 H 04/16/18 10:00 Blood Pressure 186/76 H 04/16/18 10:00 O2 Sat by Pulse Oximetry (%) 96 04/16/18 09:00 Constitutional: Yes: Obese Eyes: Yes: Conjunctiva Clear Cardiovascular: Yes: Regular Rate and Rhythm, S1, S2 Respiratory: Yes: Diminished Gastrointestinal: Yes: Normal Bowel Sounds, Soft, Abdomen, Obese. No: Tenderness Edema: Yes Labs: CBC, BMP 04/16/18 05:30 04/16/18 05:30 INR, PTT INR 1.06 (0.83-1.09) 04/13/18 05:20 Assessment/Plan RESP FAILURE IMPROVED FEVER R/O SEPSIS HX ESBL BACTEREMIA/ SEPSIS CHRONICALLY INFECTED R TKR MORBID OBESITY DAY# 4 MEROPENEM D/C AFTER AM DOSE 04/17
[2018-04-16] MEDS ORDERED: ALBUTEROL SO4 2.5/IPRATROPIUM 0.5 INH SOL 3 ML VIAL.NEB. NEB ONE (11:45)
[2018-04-16] MEDS: INSULIN SLIDING SCALE (NOVOLOG) 1 VIAL SQ SCH ×3 (12:26→21:55)
[2018-04-16] MEDS: morphine SULFATE IMMEDIATE RELEASE 30 MG TAB PO PRN ×2 (14:44→20:30)
--- NOTE | 2018-04-16 22:37 | PN ---
Progress Note (short form) - Note Progress Note: no new change she is alert and awake Vital Signs Period Temp Pulse Resp BP Sys/Gottlieb Pulse Ox Last 24 Hr 97.6 F-98.5 F 56-82 14-22 151-186/73-103 93-97 Laboratory Results - last 24 hr 04/16/18 04/16/18 04/16/18 05:30 05:30 06:21 WBC 5.5 RBC 4.03 Hgb 10.8 Hct 32.7 MCV 81.1 MCH 26.8 MCHC 33.0 RDW 18.5 H Plt Count 164 MPV 9.1 Absolute Neuts (auto) 5.1 Neutrophils % 92.4 H Neutrophils % (Manual) 91.9 H Band Neutrophils % 2.0 Lymphocytes % 3.6 L Lymphocytes % (Manual) 3.1 L D Monocytes % 3.6 L Monocytes % (Manual) 2 L Eosinophils % 0.0 Eosinophils % (Manual) 1.0 D Basophils % 0.4 Basophils % (Manual) 0.0 Myelocytes % (Man) 0 Promyelocytes % (Man) 0 Blast Cells % (Manual) 0 Nucleated RBC % 0 Metamyelocytes 0 Hypochromia 0 Platelet Estimate Adequate Polychromasia 0 Poikilocytosis 1+ Anisocytosis 1+ Microcytosis 0 Macrocytosis 0 Schistocytes 1+ Sodium 137 Potassium 5.3 H Chloride 101 Carbon Dioxide 32 Anion Gap 4 L BUN 41 H Creatinine 1.5 H Creat Clearance w eGFR 34.23 POC Glucometer 196 Random Glucose 204 H Calcium 8.6 Phosphorus 2.9 Magnesium 2.4 Total Bilirubin 0.4 AST 12 L ALT 12 L Alkaline Phosphatase 104 Total Protein 5.4 L Albumin 2.6 L 04/16/18 04/16/18 04/16/18 12:14 17:14 20:42 WBC RBC Hgb Hct MCV MCH MCHC RDW Plt Count MPV Absolute Neuts (auto) Neutrophils % Neutrophils % (Manual) Band Neutrophils % Lymphocytes % Lymphocytes % (Manual) Monocytes % Monocytes % (Manual) Eosinophils % Eosinophils % (Manual) Basophils % Basophils % (Manual) Myelocytes % (Man) Promyelocytes % (Man) Blast Cells % (Manual) Nucleated RBC % Metamyelocytes Hypochromia Platelet Estimate Polychromasia Poikilocytosis Anisocytosis Microcytosis Macrocytosis Schistocytes Sodium Potassium Chloride Carbon Dioxide Anion Gap BUN Creatinine Creat Clearance w eGFR POC Glucometer 219 252 241 Random Glucose Calcium Phosphorus Magnesium Total Bilirubin AST ALT Alkaline Phosphatase Total Protein Albumin Heent nad neck supple lungs coarse bs bilateral abd soft and non tender bs normal ext trace edema disability coordinator alert and awake Current Medications Albuterol/Ipratropium (Duoneb -) 1 amp NEB RQID [facility] Last Admin: 04/16/18 20:45 Dose: 1 amp Aspirin (Asa -) 81 mg PO DAILY [facility] Clopidogrel Bisulfate (Plavix -) 75 mg PO DAILY [facility] Docusate Sodium (Colace -) 300 mg PO DAILY [facility] Enoxaparin Sodium (Lovenox -) 40 mg SQ DAILY [facility] Guaifenesin (Robitussin -) 10 ml PO Q6H PRN PRN Reason: COUGH Meropenem 500 mg/ Dextrose 100 mls @ 200 mls/hr IVPB Q8H-IV [facility] Last Admin: 04/16/18 17:14 Dose: 200 mls/hr Insulin Aspart (Novolog Vial Sliding Scale -) 1 vial SQ ACHS [facility]; Protocol Last Admin: 04/16/18 21:55 Dose: 4 units Losartan Potassium (Cozaar -) 50 mg PO DAILY [facility] Methylprednisolone Sodium Succinate (Solu-Medrol -) 60 mg IVPUSH BID [facility] Last Admin: 04/16/18 21:54 Dose: 60 mg Morphine Sulfate (Msir -) 30 mg PO Q6H PRN PRN Reason: PAIN LEVEL 7 - 10 Last Admin: 04/16/18 20:30 Dose: 30 mg Morphine Sulfate (Ms Contin -) 60 mg PO BID [facility] Last Admin: 04/16/18 21:52 Dose: 60 mg Nystatin (Nystop Powder -) 1 applic TP DAILY [facility] Last Admin: 04/16/18 10:09 Dose: 1 applic Pantoprazole Sodium (Protonix -) 20 mg PO DAILY [facility] ASSESSMENT/PLAN: 72 y/o F with PMHx of CAD s/p Stents, HTN, HLD, COPD, DM, MRSA cellulitis, Former smoker (Quit 15 years ago), who was recently transferred to [facility] for possible Sepsis, was BIBEMS from [facility] for AMS and will be monitored in ICU for Acute Respiratory Failure. #Neuro Lethargy, Improving -Likely due to Hypercapnia -Aspiration precautions -Continue to monitor #Cardio Pericardial Effusion Elevated BNP Hx of CAD s/p Stents, HTN, HLD -Trop < 0.02 -BNP 2647 -EKG: SINUS RHYTHM WITH 1ST DEGREE A-V BLOCK, VR 78, QTc 421 -ECHO: LV EF is normal -Continue ASA, Clopidogrel #Pulmonary Acute Hypoxic Hypercapnic Respiratory Failure Hx of COPD -Likely due to COPD Exacerbation, Components of NIKHIL -ABG Improving -Does not tolerate Bipap overnight; Monitor on Nasal canula -Bipap HS -IV Methylprednisolone decreased to 60mg Q12H -Supplemental O2 to maintain SpO2 88-92% -Will need PFTs, PSG once acute process resolves #GI Elevated Alk Phos Morbid Obesity -Continue to monitor; Will consider further imaging if continues to rise -IV Pantoprazole 40mg Daily -Bowel regimen via Docusate -Will need outpatient follow up for tighter weight control, possibly bariatric surgery #Renal Elevated Cr, Improving; Baseline 1.5-1.6 Hyperphosphatemia, Corrected Hyperkalemia, Corrected -Monitor urine output, creatinine #Heme -No Active issues, Continue to monitor #Endo Hx of DM -BGMs ISS ACHS #ID Recently treated for Sepsis; R/O Sepsis Hx of MRSA cellulitis -AFebrile, Without elevated WBC Count -LA 0.7 -UA, Blood and urine Cx pending -Dr. Jennings Consulted -IV Meropenem 500mg Q8H (started on 04/13) #FEN -No Standing Fluids -Replete lytes PRN -NPO; Full Liquid diet for lunch #PPx -DVT: Enoxaparin -GI: Pantoprazole
[2018-04-17] MEDS: MEROPENEM 500 MG in DEXTROSE 5%-WATER 100 ML IVPB SCH ×3 (01:56→18:01)
[2018-04-17] MEDS: morphine SULFATE IMMEDIATE RELEASE 30 MG TAB PO PRN ×3 (02:55→18:01)
[2018-04-17] MEDS: INSULIN SLIDING SCALE (NOVOLOG) 1 VIAL SQ SCH ×4 (06:47→22:36)
[2018-04-17] MEDS: ALBUTEROL SO4 2.5/IPRATROPIUM 0.5 INH SOL 3 ML VIAL.NEB. NEB SCH ×4 (07:29→20:33)
[2018-04-17] MEDS: morphine SO4 SUSTAINED ACTING 30 MG TABLET.SA PO SCH ×2 (09:41→22:29)
[2018-04-17] MEDS: methylPREDNISolone NA SUCC 40 MG/1 ML VIAL IVPUSH SCH ×2 (09:41→22:29)
[2018-04-17] MEDS: CLOPIDOGREL BISULFATE 75 MG TABLET (FP) PO SCH (09:42)
[2018-04-17] MEDS: PANTOPRAZOLE 20 MG TABLET (FP) PO SCH (09:42)
[2018-04-17] MEDS: ASPIRIN 81 MG CHEWABLE TABLETS PO SCH (09:42)
[2018-04-17] MEDS: DOCUSATE SODIUM 100 MG CAPSULE (FP) PO SCH (09:42)
[2018-04-17] MEDS: LOSARTAN POTASSIUM 50 MG TABLET (FP) PO SCH (09:42)
[2018-04-17] MEDS: ENOXAPARIN NA (PORCINE) 40 MG/0.4 ML DISP.SYRIN SQ SCH (09:43)
[2018-04-17] MEDS: NYSTATIN POWDER 100,000 UNITS/GM - 15 GM TOPICAL POWDER TP SCH (09:43)
--- NOTE | 2018-04-17 09:56 | PN ---
Progress Note, Physician History of Present Illness: The patient is a 72 year old white woman, with a significant past medical history of morbid obesity, HTN, HLD, DM, diastolic CHF, anxiety/panic, chronically infected right TKR, and recent admission for sepsis (was transferred at that time to [facility] for further care), who presents to the emergency department via EMS from [facility] with, ALEXIS. Patients son at bedside notes, today she was increasingly lethargic and short of breath, prompting her arrival. As per [facility], the patient was O2 saturation was 84-88% on room air. History was obtained by son at bedside and via NH secondary to patients lethargy. - Current Medication List Current Medications: Active Medications Albuterol/Ipratropium (Duoneb -) 1 amp NEB RQID [facility] Last Admin: 04/17/18 07:29 Dose: 1 amp Aspirin (Asa -) 81 mg PO DAILY [facility] Last Admin: 04/17/18 09:42 Dose: 81 mg Clopidogrel Bisulfate (Plavix -) 75 mg PO DAILY [facility] Last Admin: 04/17/18 09:42 Dose: 75 mg Docusate Sodium (Colace -) 300 mg PO DAILY [facility] Last Admin: 04/17/18 09:42 Dose: 300 mg Enoxaparin Sodium (Lovenox -) 40 mg SQ DAILY [facility] Last Admin: 04/17/18 09:43 Dose: 40 mg Guaifenesin (Robitussin -) 10 ml PO Q6H PRN PRN Reason: COUGH Meropenem 500 mg/ Dextrose 100 mls @ 200 mls/hr IVPB Q8H-IV [facility] Last Admin: 04/17/18 09:43 Dose: 200 mls/hr Insulin Aspart (Novolog Vial Sliding Scale -) 1 vial SQ ACHS [facility]; Protocol Last Admin: 04/17/18 06:47 Dose: 4 units Losartan Potassium (Cozaar -) 50 mg PO DAILY [facility] Last Admin: 04/17/18 09:42 Dose: 50 mg Methylprednisolone Sodium Succinate (Solu-Medrol -) 60 mg IVPUSH BID [facility] Last Admin: 04/17/18 09:41 Dose: 60 mg Morphine Sulfate (Msir -) 30 mg PO Q6H PRN PRN Reason: PAIN LEVEL 7 - 10 Last Admin: 04/17/18 02:55 Dose: 30 mg Morphine Sulfate (Ms Contin -) 60 mg PO BID [facility] Last Admin: 04/17/18 09:41 Dose: 60 mg Nystatin (Nystop Powder -) 1 applic TP DAILY [facility] Last Admin: 04/17/18 09:43 Dose: 1 applic Pantoprazole Sodium (Protonix -) 20 mg PO DAILY [facility] Last Admin: 04/17/18 09:42 Dose: 20 mg - Objective Vital Signs: Vital Signs Temperature 98.8 F 04/17/18 06:00 Pulse Rate 70 04/17/18 06:00 Respiratory Rate 20 04/17/18 06:00 Blood Pressure 155/79 04/17/18 06:00 O2 Sat by Pulse Oximetry (%) 93 L 04/16/18 21:00 Eyes: Yes: WNL, Conjunctiva Clear, EOM Intact HENT: Yes: WNL, Atraumatic, Normocephalic Neck: Yes: WNL, Supple, Trachea Midline Cardiovascular: Yes: WNL, Regular Rate and Rhythm Respiratory: Yes: WNL, Regular, CTA Bilaterally Gastrointestinal: Yes: WNL, Normal Bowel Sounds Genitourinary: Yes: WNL Musculoskeletal: Yes: WNL Extremities: Yes: WNL Edema: No Integumentary: Yes: WNL Neurological: Yes: WNL, Alert, Oriented ...Motor Strength: WNL Psychiatric: Yes: WNL Labs: CBC, BMP 04/16/18 05:30 04/16/18 05:30 INR, PTT INR 1.06 (0.83-1.09) 04/13/18 05:20 Assessment/Plan - Problems (1) Morbid obesity Code(s): E66.01 - MORBID (SEVERE) OBESITY DUE TO EXCESS CALORIES (2) Chronic renal insufficiency Code(s): N18.9 - CHRONIC KIDNEY DISEASE, UNSPECIFIED (3) Acute respiratory failure with hypoxia and hypercapnia Assessment/Plan: Continue steroids, bronchodilators, and O2 per belt loop cutter. Antibiotics per ID. Code(s): J96.01 - ACUTE RESPIRATORY FAILURE WITH HYPOXIA; J96.02 - ACUTE RESPIRATORY FAILURE WITH HYPERCAPNIA (4) COPD exacerbation Code(s): J44.1 - CHRONIC OBSTRUCTIVE PULMONARY DISEASE W (ACUTE) EXACERBATION (5) HTN (hypertension) Assessment/Plan: On losartan; f/u BP serially. ECHO: normal LVEF; repeat when pt positioning allows additional views (unable to assess chamber sizes, wall motion, valvular status). Code(s): I10 - ESSENTIAL (PRIMARY) HYPERTENSION Qualifiers: (6) Hyperlipidemia Assessment/Plan: f/u lipid profile. Code(s): E78.5 - HYPERLIPIDEMIA, UNSPECIFIED (7) Dehydration Assessment/Plan: IV fluids; F/u Is and OS, daily weight, electrolytes, BUN/Cr. Code(s): E86.0 - DEHYDRATION (8) Hypothyroid Assessment/Plan: f/u TSH. Code(s): E03.9 - HYPOTHYROIDISM, UNSPECIFIED
--- NOTE | 2018-04-17 12:36 | PN ---
Progress Note, Physician History of Present Illness: AWAKE AND ALERT C/O R LE PAIN BREATHING NON-LABORED ON NASAL CANNULA LESS COUGH TEMPS REMAIN DOWN AFEBRILE - Current Medication List Current Medications: Active Medications Albuterol/Ipratropium (Duoneb -) 1 amp NEB RQID [facility] Last Admin: 04/17/18 11:37 Dose: Not Given Aspirin (Asa -) 81 mg PO DAILY [facility] Last Admin: 04/17/18 09:42 Dose: 81 mg Clopidogrel Bisulfate (Plavix -) 75 mg PO DAILY [facility] Last Admin: 04/17/18 09:42 Dose: 75 mg Docusate Sodium (Colace -) 300 mg PO DAILY [facility] Last Admin: 04/17/18 09:42 Dose: 300 mg Enoxaparin Sodium (Lovenox -) 40 mg SQ DAILY [facility] Last Admin: 04/17/18 09:43 Dose: 40 mg Guaifenesin (Robitussin -) 10 ml PO Q6H PRN PRN Reason: COUGH Meropenem 500 mg/ Dextrose 100 mls @ 200 mls/hr IVPB Q8H-IV [facility] Last Admin: 04/17/18 09:43 Dose: 200 mls/hr Insulin Aspart (Novolog Vial Sliding Scale -) 1 vial SQ ACHS [facility]; Protocol Last Admin: 04/17/18 11:06 Dose: 2 units Losartan Potassium (Cozaar -) 50 mg PO DAILY [facility] Last Admin: 04/17/18 09:42 Dose: 50 mg Methylprednisolone Sodium Succinate (Solu-Medrol -) 60 mg IVPUSH BID [facility] Last Admin: 04/17/18 09:41 Dose: 60 mg Morphine Sulfate (Msir -) 30 mg PO Q6H PRN PRN Reason: PAIN LEVEL 7 - 10 Last Admin: 04/17/18 12:24 Dose: 30 mg Morphine Sulfate (Ms Contin -) 60 mg PO BID [facility] Last Admin: 04/17/18 09:41 Dose: 60 mg Nystatin (Nystop Powder -) 1 applic TP DAILY [facility] Last Admin: 04/17/18 09:43 Dose: 1 applic Pantoprazole Sodium (Protonix -) 20 mg PO DAILY [facility] Last Admin: 04/17/18 09:42 Dose: 20 mg - Objective Vital Signs: Vital Signs Temperature 98.8 F 04/17/18 06:00 Pulse Rate 70 04/17/18 06:00 Respiratory Rate 20 02/10/19 06:00 Blood Pressure 155/79 04/17/18 06:00 O2 Sat by Pulse Oximetry (%) 93 L 04/16/18 21:00 Constitutional: Yes: No Distress, Obese Cardiovascular: Yes: Regular Rate and Rhythm, S1, S2 Respiratory: Yes: Rhonchi Gastrointestinal: Yes: Normal Bowel Sounds, Soft, Abdomen, Obese. No: Tenderness Edema: Yes Edema: LLE: 2+, RLE: 2+ Integumentary: Yes: Venous Stasis Changes Labs: CBC, BMP 04/16/18 05:30 04/16/18 05:30 INR, PTT INR 1.06 (0.83-1.09) 04/13/18 05:20 Assessment/Plan RESP FAILURE IMPROVED FEVER RESOLVED HX ESBL BACTEREMIA/ SEPSIS CHRONICALLY INFECTED R TKR MORBID OBESITY DAY# 5 MEROPENEM D/C ANTIBIOTICS, OBSERVE OFF
--- NOTE | 2018-04-17 15:13 | PN ---
Progress Note, Physician History of Present Illness: PULMONARY ALERT,COMFORTABLE,-RESP DISTRESS - Current Medication List Current Medications: Active Medications Albuterol/Ipratropium (Duoneb -) 1 amp NEB RQID [facility] Last Admin: 04/17/18 11:37 Dose: Not Given Aspirin (Asa -) 81 mg PO DAILY [facility] Last Admin: 04/17/18 09:42 Dose: 81 mg Clopidogrel Bisulfate (Plavix -) 75 mg PO DAILY [facility] Last Admin: 04/17/18 09:42 Dose: 75 mg Docusate Sodium (Colace -) 300 mg PO DAILY [facility] Last Admin: 04/17/18 09:42 Dose: 300 mg Enoxaparin Sodium (Lovenox -) 40 mg SQ DAILY [facility] Last Admin: 04/17/18 09:43 Dose: 40 mg Guaifenesin (Robitussin -) 10 ml PO Q6H PRN PRN Reason: COUGH Meropenem 500 mg/ Dextrose 100 mls @ 200 mls/hr IVPB Q8H-IV [facility] Last Admin: 04/17/18 09:43 Dose: 200 mls/hr Insulin Aspart (Novolog Vial Sliding Scale -) 1 vial SQ ACHS [facility]; Protocol Last Admin: 04/17/18 11:06 Dose: 2 units Losartan Potassium (Cozaar -) 50 mg PO DAILY [facility] Last Admin: 04/17/18 09:42 Dose: 50 mg Methylprednisolone Sodium Succinate (Solu-Medrol -) 60 mg IVPUSH BID [facility] Last Admin: 04/17/18 09:41 Dose: 60 mg Morphine Sulfate (Msir -) 30 mg PO Q6H PRN PRN Reason: PAIN LEVEL 7 - 10 Last Admin: 04/17/18 12:24 Dose: 30 mg Morphine Sulfate (Ms Contin -) 60 mg PO BID [facility] Last Admin: 04/17/18 09:41 Dose: 60 mg Nystatin (Nystop Powder -) 1 applic TP DAILY [facility] Last Admin: 04/17/18 09:43 Dose: 1 applic Pantoprazole Sodium (Protonix -) 20 mg PO DAILY [facility] Last Admin: 04/17/18 09:42 Dose: 20 mg - Objective Vital Signs: Vital Signs Temperature 98.8 F 04/17/18 06:00 Pulse Rate 70 04/17/18 06:00 Respiratory Rate 20 04/17/18 06:00 Blood Pressure 155/79 04/17/18 06:00 O2 Sat by Pulse Oximetry (%) 93 L 04/16/18 21:00 Constitutional: Yes: Well Nourished, Obese Eyes: Yes: WNL HENT: Yes: WNL Neck: Yes: WNL Cardiovascular: Yes: Regular Rate and Rhythm, S1, S2 Respiratory: Yes: Diminished Gastrointestinal: Yes: Normal Bowel Sounds, Soft Extremities: Yes: WNL Edema: Yes Labs: CBC, BMP 04/16/18 05:30 04/16/18 05:30 INR, PTT INR 1.06 (0.83-1.09) 04/13/18 05:20 Problem List - Problems (1) Acute respiratory failure with hypoxia and hypercapnia Code(s): J96.01 - ACUTE RESPIRATORY FAILURE WITH HYPOXIA; J96.02 - ACUTE RESPIRATORY FAILURE WITH HYPERCAPNIA (2) CAD (coronary artery disease) Code(s): I25.10 - ATHSCL HEART DISEASE OF [place] CORONARY ARTERY W/O ANG PCTRS Qualifiers: Coronary Disease-Associated Artery/Lesion type: [place] artery Associated angina: without angina (3) COPD exacerbation Code(s): J44.1 - CHRONIC OBSTRUCTIVE PULMONARY DISEASE W (ACUTE) EXACERBATION (4) Chronic renal insufficiency Code(s): N18.9 - CHRONIC KIDNEY DISEASE, UNSPECIFIED (5) Dehydration Code(s): E86.0 - DEHYDRATION (6) Morbid obesity Code(s): E66.01 - MORBID (SEVERE) OBESITY DUE TO EXCESS CALORIES (7) Obesity Code(s): E66.9 - OBESITY, UNSPECIFIED Qualifiers: Obesity type: due to excess calories Obesity classification: adult class 3 (BMI >= 40) Body mass index: BMI 60.0-69.9 (8) Jldup-yj-awobbdg kidney injury Code(s): N17.9 - ACUTE KIDNEY FAILURE, UNSPECIFIED; N18.9 - CHRONIC KIDNEY DISEASE, UNSPECIFIED (9) Diabetes mellitus Code(s): E11.9 - TYPE 2 DIABETES MELLITUS WITHOUT COMPLICATIONS Qualifiers: Diabetes mellitus type: type 2 Diabetes mellitus 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 insulin use: with 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 use (10) HTN (hypertension) Code(s): I10 - ESSENTIAL (PRIMARY) HYPERTENSION Qualifiers: (11) Pericardial effusion Code(s): I31.3 - PERICARDIAL EFFUSION (NONINFLAMMATORY) Assessment/Plan ASSESSMENT AND PLAN: Acute on Chronic Hypoxic and Hypercapneic Respiratory Failure improved Acute COPD Exacerbation improving r/o Pneumonia r/o Sepsis Acute on Chronic Renal Failure Pericardial Effusion DM - o2,nippv for increased resp distress - monitor ABG - IV medrol - inhaled bronchodilators standing and PRN - O2 to keep Spo2 88-92% - antibiotics per ID - monitor urine output, creatinine - aspiration precautions - DVT prophylaxis DR PIERSON
--- NOTE | 2018-04-17 21:12 | PN ---
Progress Note (short form) - Note Progress Note: no new change she is alert and awake Vital Signs Vital Signs Period Temp Pulse Resp BP Sys/Gottlieb Pulse Ox Last 24 Hr 97.3 F-98.8 F 62-77 18-20 152-181/67-88 95 Laboratory Results - last 24 hr 04/16/18 04/16/18 04/16/18 05:30 05:30 06:21 WBC 5.5 RBC 4.03 Hgb 10.8 Hct 32.7 MCV 81.1 MCH 26.8 MCHC 33.0 RDW 18.5 H Plt Count 164 MPV 9.1 Absolute Neuts (auto) 5.1 Neutrophils % 92.4 H Neutrophils % (Manual) 91.9 H Band Neutrophils % 2.0 Lymphocytes % 3.6 L Lymphocytes % (Manual) 3.1 L D Monocytes % 3.6 L Monocytes % (Manual) 2 L Eosinophils % 0.0 Eosinophils % (Manual) 1.0 D Basophils % 0.4 Basophils % (Manual) 0.0 Myelocytes % (Man) 0 Promyelocytes % (Man) 0 Blast Cells % (Manual) 0 Nucleated RBC % 0 Metamyelocytes 0 Hypochromia 0 Platelet Estimate Adequate Polychromasia 0 Poikilocytosis 1+ Anisocytosis 1+ Microcytosis 0 Macrocytosis 0 Schistocytes 1+ Sodium 137 Potassium 5.3 H Chloride 101 Carbon Dioxide 32 Anion Gap 4 L BUN 41 H Creatinine 1.5 H Creat Clearance w eGFR 34.23 POC Glucometer 196 Random Glucose 204 H Calcium 8.6 Phosphorus 2.9 Magnesium 2.4 Total Bilirubin 0.4 AST 12 L ALT 12 L Alkaline Phosphatase 104 Total Protein 5.4 L Albumin 2.6 L 04/16/18 04/16/18 04/16/18 12:14 17:14 20:42 WBC RBC Hgb Hct MCV MCH MCHC RDW Plt Count MPV Absolute Neuts (auto) Neutrophils % Neutrophils % (Manual) Band Neutrophils % Lymphocytes % Lymphocytes % (Manual) Monocytes % Monocytes % (Manual) Eosinophils % Eosinophils % (Manual) Basophils % Basophils % (Manual) Myelocytes % (Man) Promyelocytes % (Man) Blast Cells % (Manual) Nucleated RBC % Metamyelocytes Hypochromia Platelet Estimate Polychromasia Poikilocytosis Anisocytosis Microcytosis Macrocytosis Schistocytes Sodium Potassium Chloride Carbon Dioxide Anion Gap BUN Creatinine Creat Clearance w eGFR POC Glucometer 219 252 241 Random Glucose Calcium Phosphorus Magnesium Total Bilirubin AST ALT Alkaline Phosphatase Total Protein Albumin Heent nad neck supple lungs coarse bs bilateral abd soft and non tender bs normal ext trace 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 Current Medications Albuterol/Ipratropium (Duoneb -) 1 amp NEB RQID [facility] Last Admin: 04/16/18 20:45 Dose: 1 amp Aspirin (Asa -) 81 mg PO DAILY [facility] Clopidogrel Bisulfate (Plavix -) 75 mg PO DAILY [facility] Docusate Sodium (Colace -) 300 mg PO DAILY [facility] Enoxaparin Sodium (Lovenox -) 40 mg SQ DAILY [facility] Guaifenesin (Robitussin -) 10 ml PO Q6H PRN PRN Reason: COUGH Meropenem 500 mg/ Dextrose 100 mls @ 200 mls/hr IVPB Q8H-IV [facility] Last Admin: 04/16/18 17:14 Dose: 200 mls/hr Insulin Aspart (Novolog Vial Sliding Scale -) 1 vial SQ ACHS [facility]; Protocol Last Admin: 04/16/18 21:55 Dose: 4 units Losartan Potassium (Cozaar -) 50 mg PO DAILY [facility] Methylprednisolone Sodium Succinate (Solu-Medrol -) 60 mg IVPUSH BID [facility] Last Admin: 04/16/18 21:54 Dose: 60 mg Morphine Sulfate (Msir -) 30 mg PO Q6H PRN PRN Reason: PAIN LEVEL 7 - 10 Last Admin: 04/16/18 20:30 Dose: 30 mg Morphine Sulfate (Ms Contin -) 60 mg PO BID [facility] Last Admin: 04/16/18 21:52 Dose: 60 mg Nystatin (Nystop Powder -) 1 applic TP DAILY [facility] Last Admin: 04/16/18 10:09 Dose: 1 applic Pantoprazole Sodium (Protonix -) 20 mg PO DAILY [facility] ASSESSMENT/PLAN: 72 y/o F with PMHx of CAD s/p Stents, HTN, HLD, COPD, DM, MRSA cellulitis, Former smoker (Quit 15 years ago), who was recently transferred to [facility] for possible Sepsis, was BIBEMS from [facility] for AMS and will be monitored in ICU for Acute Respiratory Failure. #Neuro Lethargy, Improving -Likely due to Hypercapnia -Aspiration precautions -Continue to monitor #Cardio Pericardial Effusion Elevated BNP Hx of CAD s/p Stents, HTN, HLD -Trop < 0.02 -BNP 2647 -EKG: SINUS RHYTHM WITH 1ST DEGREE A-V BLOCK, VR 78, QTc 421 -ECHO: LV EF is normal -Continue ASA, Clopidogrel #Pulmonary Acute Hypoxic Hypercapnic Respiratory Failure Hx of COPD -Likely due to COPD Exacerbation, Components of NIKHIL -ABG Improving -Does not tolerate Bipap overnight; Monitor on Nasal canula -Bipap HS -IV Methylprednisolone decreased to 60mg Q12H -Supplemental O2 to maintain SpO2 88-92% -Will need PFTs, PSG once acute process resolves #GI Elevated Alk Phos Morbid Obesity -Continue to monitor; Will consider further imaging if continues to rise -IV Pantoprazole 40mg Daily -Bowel regimen via Docusate -Will need outpatient follow up for tighter weight control, possibly bariatric surgery #Renal Elevated Cr, Improving; Baseline 1.5-1.6 Hyperphosphatemia, Corrected Hyperkalemia, Corrected -Monitor urine output, creatinine #Heme -No Active issues, Continue to monitor #Endo Hx of DM -BGMs ISS ACHS #ID Recently treated for Sepsis; R/O Sepsis Hx of MRSA cellulitis -AFebrile, Without elevated WBC Count -LA 0.7 -UA, Blood and urine Cx pending -Dr. Jennings Consulted -IV Meropenem 500mg Q8H (started on 04/13) #FEN -No Standing Fluids -Replete lytes PRN -NPO; Full Liquid diet for lunch #PPx -DVT: Enoxaparin -GI: Pantoprazole
[2018-04-17] MEDS ORDERED: PT OWN MED DRAWER 7, Y5N ONE (22:20)
[2018-04-18] MEDS: MEROPENEM 500 MG in DEXTROSE 5%-WATER 100 ML IVPB SCH (01:59)
[2018-04-18] MEDS: morphine SULFATE IMMEDIATE RELEASE 30 MG TAB PO PRN ×2 (02:32→16:08)
[2018-04-18] MEDS: ALBUTEROL SO4 2.5/IPRATROPIUM 0.5 INH SOL 3 ML VIAL.NEB. NEB SCH ×4 (07:00→21:33)
[2018-04-18] MEDS: INSULIN SLIDING SCALE (NOVOLOG) 1 VIAL SQ SCH ×4 (07:05→21:02)
--- NOTE | 2018-04-18 08:32 | PN ---
Progress Note (short form) - Note Progress Note: Resting in NAD on 3 L NC O2. No acute events overnight. Intake & Output 04/15/18 04/16/18 04/17/18 04/18/18 23:59 23:59 23:59 23:59 Intake Total 300 650 720 Output Total 500 Balance 300 150 720 Weight 335 lb Last Vital Signs Temp Pulse Resp BP Pulse Ox 98.2 F 62 20 187/102 H 95 04/18/18 07:49 04/18/18 07:49 04/18/18 07:49 04/18/18 07:49 04/17/18 21:00 Active Medications Albuterol/Ipratropium (Duoneb -) 1 amp NEB RQID [facility] Last Admin: 04/18/18 07:00 Dose: 1 amp Aspirin (Asa -) 81 mg PO DAILY [facility] Last Admin: 04/17/18 09:42 Dose: 81 mg Clopidogrel Bisulfate (Plavix -) 75 mg PO DAILY [facility] Last Admin: 04/17/18 09:42 Dose: 75 mg Docusate Sodium (Colace -) 300 mg PO DAILY [facility] Last Admin: 04/17/18 09:42 Dose: 300 mg Enoxaparin Sodium (Lovenox -) 40 mg SQ DAILY [facility] Last Admin: 04/17/18 09:43 Dose: 40 mg Guaifenesin (Robitussin -) 10 ml PO Q6H PRN PRN Reason: COUGH Meropenem 500 mg/ Dextrose 100 mls @ 200 mls/hr IVPB Q8H-IV [facility] Last Admin: 04/18/18 01:59 Dose: 200 mls/hr Insulin Aspart (Novolog Vial Sliding Scale -) 1 vial SQ ACHS [facility]; Protocol Last Admin: 04/18/18 07:05 Dose: 2 units Losartan Potassium (Cozaar -) 50 mg PO DAILY [facility] Last Admin: 04/17/18 09:42 Dose: 50 mg Methylprednisolone Sodium Succinate (Solu-Medrol -) 60 mg IVPUSH BID [facility] Last Admin: 04/17/18 22:29 Dose: 60 mg Morphine Sulfate (Msir -) 30 mg PO Q6H PRN PRN Reason: PAIN LEVEL 7 - 10 Last Admin: 04/18/18 02:32 Dose: 30 mg Morphine Sulfate (Ms Contin -) 60 mg PO BID [facility] Last Admin: 04/17/18 22:29 Dose: 60 mg Nystatin (Nystop Powder -) 1 applic TP DAILY [facility] Last Admin: 04/17/18 09:43 Dose: 1 applic Pantoprazole Sodium (Protonix -) 20 mg PO DAILY [facility] Last Admin: 04/17/18 09:42 Dose: 20 mg Constitutional: Yes: NAD, morbidly Obese Eyes: Yes: WNL HENT: Yes: WNL Neck: Yes: WNL Cardiovascular: Yes: Regular Rate and Rhythm, S1, S2 Respiratory: Yes: Diminished Gastrointestinal: Yes: Normal Bowel Sounds, Soft Extremities: Yes: WNL Edema: Yes Labs: Laboratory Results - last 24 hr 04/17/18 04/17/18 04/17/18 11:05 17:22 22:34 POC Glucometer 192 313 278 04/18/18 07:02 POC Glucometer 180 Problem List - Problems (1) Acute respiratory failure with hypoxia and hypercapnia Code(s): J96.01 - ACUTE RESPIRATORY FAILURE WITH HYPOXIA; J96.02 - ACUTE RESPIRATORY FAILURE WITH HYPERCAPNIA (2) CAD (coronary artery disease) Code(s): I25.10 - ATHSCL HEART DISEASE OF [place] CORONARY ARTERY W/O ANG PCTRS Qualifiers: Coronary Disease-Associated Artery/Lesion type: [place] artery Associated angina: without angina (3) COPD exacerbation Code(s): J44.1 - CHRONIC OBSTRUCTIVE PULMONARY DISEASE W (ACUTE) EXACERBATION (4) Chronic renal insufficiency Code(s): N18.9 - CHRONIC KIDNEY DISEASE, UNSPECIFIED (5) Dehydration Code(s): E86.0 - DEHYDRATION (6) Morbid obesity Code(s): E66.01 - MORBID (SEVERE) OBESITY DUE TO EXCESS CALORIES (7) Obesity Code(s): E66.9 - OBESITY, UNSPECIFIED Qualifiers: Obesity type: due to excess calories Obesity classification: adult class 3 (BMI >= 40) Body mass index: BMI 60.0-69.9 (8) Ngkrw-nl-nbglzeu kidney injury Code(s): N17.9 - ACUTE KIDNEY FAILURE, UNSPECIFIED; N18.9 - CHRONIC KIDNEY DISEASE, UNSPECIFIED (9) Diabetes mellitus Code(s): E11.9 - TYPE 2 DIABETES MELLITUS WITHOUT COMPLICATIONS Qualifiers: Diabetes mellitus type: type 2 Diabetes mellitus skilled nursing insulin use: with skilled nursing use (10) HTN (hypertension) Code(s): I10 - ESSENTIAL (PRIMARY) HYPERTENSION Qualifiers: (11) Pericardial effusion Code(s): I31.3 - PERICARDIAL EFFUSION (NONINFLAMMATORY) Assessment/Plan ASSESSMENT AND PLAN: Acute on Chronic Hypoxic and Hypercapneic Respiratory Failure improved Acute COPD Exacerbation improving r/o Pneumonia r/o Sepsis Acute on Chronic Renal Failure Pericardial Effusion DM - O2 as needed saturation 88% to 92%, NIPPV for WOB - monitor ABG - Wean IV medrol - inhaled bronchodilators standing and PRN - O2 to keep Spo2 88-92% - antibiotics per ID - monitor urine output, creatinine - aspiration precautions - DVT prophylaxis Dr Juarez
--- NOTE | 2018-04-18 08:48 | PN ---
Progress Note (short form) - Note Progress Note: much better today awake, alert, anxious CBC, BMP 04/16/18 05:30 04/16/18 05:30 Vital Signs Period Temp Pulse Resp BP Sys/Gottlieb Pulse Ox Last 24 Hr 97.3 F-98.2 F 62-77 18-20 160-187/67-102 95-95 S1s2 rrr lungs scattered rhonchi abd obese, soft tr edema aaox3 hypercapnic respiratory failure morbid obesity [place] copd exacerbation possible underlying pna recent e.coli bactermia niddm steroid taper iv abx as per ID nebulizers gi/dvt prophylaxis chest pt robitussin physical therapy dc planning to snf Problem List - Problems (1) Acute respiratory failure with hypoxia and hypercapnia Code(s): J96.01 - ACUTE RESPIRATORY FAILURE WITH HYPOXIA; J96.02 - ACUTE RESPIRATORY FAILURE WITH HYPERCAPNIA (2) CAD (coronary artery disease) Code(s): I25.10 - ATHSCL HEART DISEASE OF [place] CORONARY ARTERY W/O ANG PCTRS Qualifiers: Coronary Disease-Associated Artery/Lesion type: [place] artery Associated angina: without angina (3) Obesity Code(s): E66.9 - OBESITY, UNSPECIFIED Qualifiers: Obesity type: due to excess calories Obesity classification: adult class 3 (BMI >= 40) Body mass index: BMI 60.0-69.9 (4) SANGITA (acute kidney injury) Code(s): N17.9 - ACUTE KIDNEY FAILURE, UNSPECIFIED (5) Cellulitis Code(s): L03.90 - CELLULITIS, UNSPECIFIED Qualifiers: Site of cellulitis: extremity Site of cellulitis of extremity: lower extremity Laterality: right Qualified Code(s): L03.115 - Cellulitis of right lower limb (6) Chronic pain Code(s): G89.29 - OTHER CHRONIC PAIN Qualifiers: Chronic pain type: chronic pain syndrome Qualified Code(s): G89.4 - Chronic pain syndrome (7) Diabetes mellitus Code(s): E11.9 - TYPE 2 DIABETES MELLITUS WITHOUT COMPLICATIONS Qualifiers: Diabetes mellitus type: type 2 Diabetes mellitus penitentiary insulin use: with penitentiary use (8) Limb deformities, congenital Code(s): 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
[2018-04-18] MEDS: morphine SO4 SUSTAINED ACTING 15 MG TABLET.SA PO SCH ×2 (10:43→21:02)
[2018-04-18] MEDS: ENOXAPARIN NA (PORCINE) 40 MG/0.4 ML DISP.SYRIN SQ SCH (10:44)
[2018-04-18] MEDS: amLODIPine BESYLATE 10 MG TABLET (FP) PO SCH (10:44)
[2018-04-18] MEDS: LOSARTAN POTASSIUM 50 MG TABLET (FP) PO SCH (10:44)
[2018-04-18] MEDS: CLOPIDOGREL BISULFATE 75 MG TABLET (FP) PO SCH (10:44)
[2018-04-18] MEDS: PANTOPRAZOLE 20 MG TABLET (FP) PO SCH (10:45)
[2018-04-18] MEDS: DOCUSATE SODIUM 100 MG CAPSULE (FP) PO SCH (10:45)
[2018-04-18] MEDS: ASPIRIN 81 MG CHEWABLE TABLETS PO SCH (10:45)
[2018-04-18] MEDS: methylPREDNISolone NA SUCC 40 MG/1 ML VIAL IVPUSH SCH ×2 (10:47→21:02)
[2018-04-18] MEDS: guaiFENesin 200 MG/10 ML 10 ML UNIT-DOSE CUPS PO PRN ×2 (11:02→21:54)
--- NOTE | 2018-04-18 13:33 | PN ---
Progress Note, Physician History of Present Illness: The patient is a 72 year old white woman, with a significant past medical history of morbid obesity, HTN, HLD, DM, diastolic CHF, anxiety/panic, chronically infected right TKR, and recent admission for sepsis (was transferred at that time to [facility] for further care), who presents to the emergency department via EMS from [facility] with, ALEXIS. Patients son at bedside notes, today she was increasingly lethargic and short of breath, prompting her arrival. As per [facility], the patient was O2 saturation was 84-88% on room air. History was obtained by son at bedside and via NH secondary to patients lethargy. - Current Medication List Current Medications: Active Medications Albuterol/Ipratropium (Duoneb -) 1 amp NEB RQID [facility] Last Admin: 04/18/18 11:05 Dose: 1 amp Amlodipine Besylate (Norvasc -) 10 mg PO DAILY [facility] Last Admin: 04/18/18 10:44 Dose: 10 mg Aspirin (Asa -) 81 mg PO DAILY [facility] Last Admin: 04/18/18 10:45 Dose: 81 mg Clopidogrel Bisulfate (Plavix -) 75 mg PO DAILY [facility] Last Admin: 04/18/18 10:44 Dose: 75 mg Docusate Sodium (Colace -) 300 mg PO DAILY [facility] Last Admin: 04/18/18 10:45 Dose: 300 mg Enoxaparin Sodium (Lovenox -) 40 mg SQ DAILY [facility] Last Admin: 04/18/18 10:44 Dose: 40 mg Guaifenesin (Robitussin -) 10 ml PO Q6H PRN PRN Reason: COUGH Last Admin: 04/18/18 11:02 Dose: 10 ml Insulin Aspart (Novolog Vial Sliding Scale -) 1 vial SQ [facility]; Protocol Last Admin: 04/18/18 12:07 Dose: 2 units Losartan Potassium (Cozaar -) 50 mg PO DAILY [facility] Last Admin: 04/18/18 10:44 Dose: 50 mg Methylprednisolone Sodium Succinate (Solu-Medrol -) 40 mg IVPUSH BID [facility] Last Admin: 04/18/18 10:47 Dose: 40 mg Morphine Sulfate (Msir -) 30 mg PO Q6H PRN PRN Reason: PAIN LEVEL 7 - 10 Last Admin: 04/18/18 02:32 Dose: 30 mg Morphine Sulfate (Ms Contin -) 45 mg PO BID [facility] Last Admin: 04/18/18 10:43 Dose: 45 mg Nystatin (Nystop Powder -) 1 applic TP DAILY [facility] Last Admin: 04/17/18 09:43 Dose: 1 applic Pantoprazole Sodium (Protonix -) 20 mg PO DAILY [facility] Last Admin: 04/18/18 10:45 Dose: 20 mg - Objective Vital Signs: Vital Signs Temperature 98.2 F 04/18/18 07:49 Pulse Rate 62 04/18/18 07:49 Respiratory Rate 20 04/18/18 07:49 Blood Pressure 187/102 H 04/18/18 07:49 O2 Sat by Pulse Oximetry (%) 95 04/17/18 21:00 Eyes: Yes: WNL, Conjunctiva Clear, EOM Intact HENT: Yes: WNL, Atraumatic, Normocephalic Neck: Yes: WNL, Supple, Trachea Midline Cardiovascular: Yes: WNL, Regular Rate and Rhythm Respiratory: Yes: Diminished Gastrointestinal: Yes: WNL, Normal Bowel Sounds Genitourinary: Yes: WNL Musculoskeletal: Yes: WNL Extremities: Yes: WNL Edema: No Integumentary: Yes: WNL Neurological: Yes: WNL, Alert, Oriented ...Motor Strength: WNL Psychiatric: Yes: WNL Labs: CBC, BMP 04/16/18 05:30 04/16/18 05:30 INR, PTT INR 1.06 (0.83-1.09) 04/13/18 05:20 Assessment/Plan - Problems (1) Morbid obesity Code(s): E66.01 - MORBID (SEVERE) OBESITY DUE TO EXCESS CALORIES (2) Chronic renal insufficiency Code(s): N18.9 - CHRONIC KIDNEY DISEASE, UNSPECIFIED (3) Acute respiratory failure with hypoxia and hypercapnia Assessment/Plan: Continue steroids, bronchodilators, and O2 per [employer] certified network professional. Antibiotics per ID. Code(s): J96.01 - ACUTE RESPIRATORY FAILURE WITH HYPOXIA; J96.02 - ACUTE RESPIRATORY FAILURE WITH HYPERCAPNIA (4) COPD exacerbation Code(s): J44.1 - CHRONIC OBSTRUCTIVE PULMONARY DISEASE W (ACUTE) EXACERBATION (5) HTN (hypertension) Assessment/Plan: On losartan; f/u BP serially. ECHO: normal LVEF; repeat when pt positioning allows additional views (unable to assess chamber sizes, wall motion, valvular status). Code(s): I10 - ESSENTIAL (PRIMARY) HYPERTENSION Qualifiers: (6) Hyperlipidemia Assessment/Plan: f/u lipid profile. Code(s): E78.5 - HYPERLIPIDEMIA, UNSPECIFIED (7) Dehydration Assessment/Plan: IV fluids; F/u Is and OS, daily weight, electrolytes, BUN/Cr. Code(s): E86.0 - DEHYDRATION (8) Hypothyroid Assessment/Plan: f/u TSH. Code(s): E03.9 - HYPOTHYROIDISM, UNSPECIFIED
[2018-04-18] MEDS: NYSTATIN POWDER 100,000 UNITS/GM - 15 GM TOPICAL POWDER TP SCH (17:53)
[2018-04-19] MEDS ORDERED: MORPHINE SULFATE 2 MG/ML VIAL IVPUSH ONE (02:25)
[2018-04-19] MEDS ORDERED: morphine SULFATE IMMEDIATE RELEASE 30 MG TAB PO ONE (02:30)
[2018-04-19 05:56] VITALS: BP 191/76; PULSE 62; TEMP 98.2
[2018-04-19] MEDS: INSULIN SLIDING SCALE (NOVOLOG) 1 VIAL SQ SCH ×2 (07:13→12:06)
[2018-04-19] MEDS: ALBUTEROL SO4 2.5/IPRATROPIUM 0.5 INH SOL 3 ML VIAL.NEB. NEB SCH (08:37)
[2018-04-19] MEDS ORDERED: PT OWN MED DRAWER 7, Y5N ONE (08:47)
[2018-04-19] MEDS: ENOXAPARIN NA (PORCINE) 40 MG/0.4 ML DISP.SYRIN SQ SCH (09:00)
[2018-04-19] MEDS: DOCUSATE SODIUM 100 MG CAPSULE (FP) PO SCH (09:00)
[2018-04-19] MEDS: PANTOPRAZOLE 20 MG TABLET (FP) PO SCH (09:00)
[2018-04-19] MEDS: CLOPIDOGREL BISULFATE 75 MG TABLET (FP) PO SCH (09:01)
[2018-04-19] MEDS: methylPREDNISolone NA SUCC 40 MG/1 ML VIAL IVPUSH SCH (09:01)
[2018-04-19] MEDS: ASPIRIN 81 MG CHEWABLE TABLETS PO SCH (09:01)
[2018-04-19] MEDS: amLODIPine BESYLATE 10 MG TABLET (FP) PO SCH (09:01)
[2018-04-19] MEDS: LOSARTAN POTASSIUM 50 MG TABLET (FP) PO SCH (09:01)
[2018-04-19] MEDS: morphine SO4 SUSTAINED ACTING 15 MG TABLET.SA PO SCH (09:01)
[2018-04-19] MEDS: NYSTATIN POWDER 100,000 UNITS/GM - 15 GM TOPICAL POWDER TP SCH (09:09)
--- NOTE | 2018-04-19 09:34 | PN ---
Progress Note (short form) - Note Progress Note: PULMONARY States breathing is improving. Less cough and wheezing. Vital Signs Period Temp Pulse Resp BP Sys/Gottlieb Pulse Ox Last 24 Hr 98.0 F-98.5 F 62-70 18-20 146-191/69-80 95 Intake & Output 04/16/18 04/17/18 04/18/18 04/19/18 23:59 23:59 23:59 23:59 Intake Total 650 720 750 Output Total 500 Balance 150 720 750 Gen: NAD at rest Heart: RRR, +systolic murmur Lung: decreased breath sounds at the bases Abd: soft, nontender Ext: + edema CBC, BMP 04/16/18 05:30 04/16/18 05:30 Active Medications Albuterol/Ipratropium (Duoneb -) 1 amp NEB RQID [facility] Last Admin: 04/19/18 08:37 Dose: 1 amp Amlodipine Besylate (Norvasc -) 10 mg PO DAILY [facility] Last Admin: 04/19/18 09:01 Dose: 10 mg Aspirin (Asa -) 81 mg PO DAILY [facility] Last Admin: 04/19/18 09:01 Dose: 81 mg Clopidogrel Bisulfate (Plavix -) 75 mg PO DAILY [facility] Last Admin: 04/19/18 09:01 Dose: 75 mg Docusate Sodium (Colace -) 300 mg PO DAILY [facility] Last Admin: 04/19/18 09:00 Dose: 300 mg Enoxaparin Sodium (Lovenox -) 40 mg SQ DAILY [facility] Last Admin: 04/19/18 09:00 Dose: 40 mg Guaifenesin (Robitussin -) 10 ml PO Q6H PRN PRN Reason: COUGH Last Admin: 04/18/18 21:54 Dose: 10 ml Insulin Aspart (Novolog Vial Sliding Scale -) 1 vial SQ ACHS [facility]; Protocol Last Admin: 04/19/18 07:13 Dose: 4 units Losartan Potassium (Cozaar -) 50 mg PO DAILY [facility] Last Admin: 04/19/18 09:01 Dose: 50 mg Methylprednisolone Sodium Succinate (Solu-Medrol -) 40 mg IVPUSH BID [facility] Last Admin: 04/19/18 09:01 Dose: 40 mg Morphine Sulfate (Ms Contin -) 45 mg PO BID [facility] Last Admin: 04/19/18 09:01 Dose: 45 mg Nystatin (Nystop Powder -) 1 applic TP DAILY [facility] Last Admin: 04/19/18 09:09 Dose: 1 applic Pantoprazole Sodium (Protonix -) 20 mg PO DAILY [facility] Last Admin: 04/19/18 09:00 Dose: 20 mg A/P Acute on Chronic Hypoxic and Hypercapneic Respiratory Failure Acute COPD Exacerbation r/o Pneumonia r/o Sepsis Acute on Chronic Renal Failure Pericardial Effusion DM - can change steroids to PO prednisone 40mg ginette and taper as outpt - inhaled bronchodilators standing and PRN - O2 to keep Spo2 88-92% - completed antibiotics - monitor urine output, creatinine - PO as tolerated - will need outpt PFTs, PSG - DVT prophylaxis
--- NOTE | 2018-04-19 11:58 | DS ---
Physical Examination Vital Signs: Vital Signs Temperature 98.2 F 04/19/18 05:55 Pulse Rate 62 04/19/18 05:55 Respiratory Rate 20 04/19/18 05:55 Blood Pressure 191/76 H 04/19/18 05:55 O2 Sat by Pulse Oximetry (%) 95 04/18/18 21:00 Constitutional: Yes: Anxious Eyes: Yes: EOM Intact HENT: Yes: Normocephalic Neck: Yes: Trachea Midline Cardiovascular: Yes: Regular Rate and Rhythm Respiratory: Yes: Rhonchi (scattered rhonchi) Gastrointestinal: Yes: Normal Bowel Sounds, Soft, Abdomen, Obese Edema: No Psychiatric: Yes: WNL Labs: CBC, BMP 04/16/18 05:30 04/16/18 05:30 Discharge Summary Reason For Visit: ACUTE RESPIRATORY FAILURE W/HYPOXIA AND HYPERCAPNI Current Active Problems Acute respiratory failure with hypoxia and hypercapnia (Acute) CAD (coronary artery disease) (Acute) COPD exacerbation (Acute) Chronic renal insufficiency (Acute) Dehydration (Acute) Hyperlipidemia (Acute) Morbid obesity (Acute) Obesity (Acute) Hospital Course: admitted for hypercapnic respiratory failure, NIKHIL and COPD exacerbation with possible underlying pneumonia. Pt has been on high dose of morphine also. Improved with BIPAP, O2, nebulizers, steroids and iv abx. Also while in hospital completed abx course for E.coli bacteremia. Currently stable to dc to SNF for STR and for oral steroid taper. Condition: Fair - Instructions Diet, Activity, Other Instructions: taper prednisone to dc over the next 7-10 days Referrals: Vinicio Leahy MD [Primary Care Provider] - - Home Medications Comprehensive Discharge Medication List: Ambulatory Orders Aspirin [ASA -] 81 mg PO DAILY 10/05/13 Gabapentin 300 mg PO BID 10/05/13 Simvastatin [Zocor -] 40 mg PO HS 10/05/13 Morphine *Immediate Release* [Msir -] 30 mg PO Q4H PRN 03/15/14 Calcium 500Mg/Vit-D 200 Units [Os-Jorge 500+D -] 2 tab PO DAILY tab 01/24/18 Enoxaparin [Lovenox -] 40 mg SQ DAILY disp.syrin 01/24/18 Morphine *Sr* [Ms Contin -] 45 mg PO BID #60 tablet.sa MDD 90 mg 01/24/18 Clopidogrel Bisulfate [Plavix -] 75 mg PO DAILY 03/30/18 Docusate Sodium [Colace -] 300 mg PO DAILY 03/30/18 Albuterol 2.5/Ipratropium 0.5 [Duoneb -] 1 amp NEB RQID amp 04/19/18 Amlodipine Besylate [Norvasc -] 10 mg PO DAILY tablet 04/19/18 Guaifenesin [Robitussin -] 10 ml PO Q6H PRN cup 04/19/18 Insulin Sliding Scale [Novolog Vial Sliding Scale -] 1 vial SQ ACHS units 04/19 Losartan Potassium [Cozaar -] 50 mg PO DAILY tablet 04/19/18 Nystatin Powder [Nystop Powder -] 1 applic TP DAILY applic 04/19/18 Pantoprazole Sodium [Protonix -] 20 mg PO DAILY tablet.ec 04/19/18 Prednisone [Deltasone] 40 mg PO DAILY #5 tablet 04/19/18
== END 2018-04-19 12:55 | DRG 189 ==
LOC: JER 00:35 → JERBED 06:44 → JICU 08:41 → J8W 04-16 11:35
PROVIDERS: ADMIT Internal Medicine; ATTEND Internal Medicine
DX: J96.01 Acute respiratory failure with hypoxia (principal); J18.9 Pneumonia, unspecified organism; J44.1 Chronic obstructive pulmonary disease with (acute) exacerbation; Z68.44 Body mass index [BMI] 60.0-69.9, adult; N17.9 Acute kidney failure, unspecified; I31.3 Pericardial effusion (noninflammatory); I25.10 Atherosclerotic heart disease of native coronary artery without angina pectoris; E66.01 Morbid (severe) obesity due to excess calories; I10 Essential (primary) hypertension; E11.9 Type 2 diabetes mellitus without complications; E78.5 Hyperlipidemia, unspecified; E86.0 Dehydration; E03.9 Hypothyroidism, unspecified
CPT/HCPCS: 36415; 36600; 71045-TC-FY; 80053; 81003; 81015; 82803; 82962; 83605; 83735; 83880; 84100; 84484; 85025; 85027; 85610; 87040; 87086; 93005; 93010; 93306-TC; 93970-TC; 94640; 94660; 97116-GP; 97162-GP; 99284-25

== ENCOUNTER 2018-05-19 14:47 | Inpatient (IN) | payer OTHER, MEDICARE ==
--- NOTE | 2018-05-19 16:34 | PDOC ---
Attending Attestation - HPI HPI: 05/19/18 19:36 Ms. Garcia is a 72 year old female with past medical history significant for CAD s/p stents, HTN, HLD, COPD, hx of MRSA, OA, DM , and Morbid Obesity presents to the emergency department from home with difficulty ambulation. Per son, the patient was DC from [facility] 1 day prior, at where she stopped PT 2 weeks prior and she had an X-ray which showed fracture around the knee placement hardware site. The son states since stopping PT, the patients been having increased difficulty ambulating. Per home health aide and psych social worker, the patient has 2 dogs at home, which the aide states has bit them and they feel unsafe. Per psych social worker, the patient is a hoarder. Allergies: Vinicio Knowles. - Physicial Exam PE: 05/19/18 19:20 GENERAL: +morbid obese. HEAD: No signs of trauma EYES: PERRLA, EOMI, sclera anicteric, conjunctiva clear ENT: +dry mucus membrane. Auricles normal inspection, hearing grossly normal, nares patent, oropharynx clear without exudates. NECK: Normal ROM, supple, no lymphadenopathy, JVD, or masses LUNGS: L. diminished at the base, on body habitus HEART: Regular rate and rhythm, normal S1 and S2, no murmurs, rubs or gallops ABDOMEN: +soft obese, 2 pannus. EXTREMITIES: +bilateral swelling, right greater than left, chronic cellulitis knees, Unchanged per son on chronic antibiotic. Pedial pulse and sensation intact. Redness to the anterior shukla. NEUROLOGICAL: Awake and alert. SKIN: Warm, Dry, normal turgor, no rashes or lesions noted. - Medical Decision Making 05/19/18 19:20 Documentation prepared by Hailey Macias, acting as medical record retrieval specialist for Sadia Mcclellan DO. <Hailey Macias - Last Filed: 05/19/18 19:36> - Resident Resident Name: Anson Sanders - ED Attending Attestation I have performed the following: I have examined & evaluated the patient, The case was reviewed & discussed with the resident, I agree w/resident's findings & plan, Exceptions are as noted - Medical Decision Making 05/19/18 16:33 I, Dr. Sadia Mcclellan DO, attest that this document has been prepared under my direction and personally reviewed by me in its entirety. I further attest, that it accurately reflects all work, treatment, procedures and medical decision -making performed by me. 05/19/18 17:02 a/p: 72yo female with hx of 11 knee replacements to the R knee who was dc from [facility] yesterday and cannot get up and move around -worsening pain to R leg, redness to RLE -mild warmth to RLE -apparently outpt xray showed a fracture around the hardware site -per social work, home health aide and visiting team was alledgedly bit by the dog -pt with morbid obesity -will need placement -social work/case management aware -pt arrives with her son -concern for acute on chronic LE cellultiis -labs, cultures, xray for poss fx -pt will need admission given she cannot get out of bed or move around 05/19/18 20:18 resident discussed the case with ariel who accepts pt to service <Sadia Mcclellan - Last Filed: 05/19/18 20:26> Heart Score/ECG Review - ECG Intrepretation Comment:: 05/19/18 17:01 sinus at 60, low voltage, nl axis, poor r wave progression, no acute st/t wave findings <Sadia Mcclellan - Last Filed: 05/19/18 20:26>
--- NOTE | 2018-05-19 17:30 | PDOC ---
History of Present Illness - General Chief Complaint: Pain, Acute Stated Complaint: LEG PAIN Time Seen by Provider: 05/19/18 16:12 History Source: Patient Exam Limitations: No Limitations - History of Present Illness Initial Comments: 05/19/18 17:28 72 yo female recently admitted (DC 04/19/18) for hypercapnic resp failure, E coli bacteremia, NIKHIL and COPD requiring Bipap and IV antibiotics DC to [facility] for rehab (DC from [facility] yesterday) pmh of R knee replacement requiring multiple revisions and antibiotic spacers sent by travel agency manager for unsafe living conditions and placement needs. According to social work and Case Management, pt has 2 dogs and home health aides/nursing staff feel unsafe also, pt reported to martin items at home. Pt also reportedly non compliant with medical treatment. Pt states she is on Ampicillin "for life" due to chronic knee infections. Pt son present who states while at [facility], pt has not had physical therapy for the last 2 weeks of her stay and since then has had increasing difficulty ambulating along with bilateral lower limb edema, redness and pain for over 2 months. Pt has no new or current medical complaints at this time but expresses concern as to why no home health aide or nurse has come to help at home since DC. Past History - Past Medical History Allergies/Adverse Reactions: Allergies Allergy/AdvReac Type Severity Reaction Status Date / Time metoprolol Allergy Verified 04/13/18 07:23 metronidazole Allergy Verified 04/13/18 07:23 Home Medications: Ambulatory Orders Aspirin [ASA -] 81 mg PO DAILY 10/05/13 Gabapentin 300 mg PO BID 10/05/13 Simvastatin [Zocor -] 40 mg PO HS 10/05/13 Morphine *Immediate Release* [Msir -] 30 mg PO Q4H PRN 03/15/14 Calcium 500Mg/Vit-D 200 Units [Os-Jorge 500+D -] 2 tab PO DAILY tab 01/24/18 Enoxaparin [Lovenox -] 40 mg SQ DAILY disp.syrin 01/24/18 Morphine *Sr* [Ms Contin -] 45 mg PO BID #60 tablet.sa MDD 90 mg 01/24/18 Clopidogrel Bisulfate [Plavix -] 75 mg PO DAILY 03/30/18 Docusate Sodium [Colace -] 300 mg PO DAILY 03/30/18 Albuterol 2.5/Ipratropium 0.5 [Duoneb -] 1 amp NEB RQID amp 04/19/18 Amlodipine Besylate [Norvasc -] 10 mg PO DAILY tablet 04/19/18 Guaifenesin [Robitussin -] 10 ml PO Q6H PRN cup 04/19/18 Insulin Sliding Scale [Novolog Vial Sliding Scale -] 1 vial SQ ACHS units 04/19 Losartan Potassium [Cozaar -] 50 mg PO DAILY tablet 04/19/18 Nystatin Powder [Nystop Powder -] 1 applic TP DAILY applic 04/19/18 Pantoprazole Sodium [Protonix -] 20 mg PO DAILY tablet.ec 04/19/18 Prednisone [Deltasone] 40 mg PO DAILY #5 tablet 04/19/18 Anemia: No Asthma: No Cancer: Yes (Uterine Cancer) Cardiac Disorders: Yes (CARDIAC STENT X2) CVA: No COPD: No CHF: No Dementia: No Diabetes: Yes GI Disorders: No Disorders: No HTN: Yes Hypercholesterolemia: Yes Liver Disease: No Seizures: No Thyroid Disease: No - Surgical History Abdominal Surgery: No Appendectomy: No Cardiac Surgery: Yes (STENTS 5 yrs ago) Cholecystectomy: Yes Lung Surgery: No Neurologic Surgery: No Orthopedic Surgery: Yes (knee replacement 2005 - knee surgeries following that ) - Immunization History Immunization Up to Date: Yes - Suicide/Smoking/Psychosocial Hx Smoking Status: No Smoking History: Former smoker Have you smoked in the past 12 months: No Number of Cigarettes Smoked Daily: 0 If you are a former smoker, when did you quit?: 15 years ago Cigars Per Day: 0 Information on smoking cessation initiated: No 'Breaking Loose' booklet given: 03/15/14 Hx Alcohol Use: No Drug/Substance Use Hx: No Substance Use Type: None Hx Substance Use Treatment: No Review of Systems - Review of Systems Constitutional: No: Chills, Fever Respiratory: No: Shortness of Breath Cardiac (ROS): No: Chest Pain ABD/GI: No: Constipated, Diarrhea, Nausea, Vomiting : No: Burning, Dysuria, Frequency Integumentary: Yes: Change in Color (redness bilateral LL with swelling) Neurological: Yes: Weakness (inability to ambulate well). No: Headache, Numbness, Paresthesia *Physical Exam - Vital Signs Last Vital Signs Temp Pulse Resp BP Pulse Ox 99.1 F 63 18 155/68 100 05/19/18 14:47 05/19/18 14:47 05/19/18 14:47 05/19/18 14:47 05/19/18 14:47 - Physical Exam General Appearance: Yes: Nourished, Appropriately Dressed. No: Apparent Distress HEENT: positive: EOMI Respiratory/Chest: positive: Lungs Clear, Normal Breath Sounds. negative: Accessory Muscle Use, Crackles, Wheezing Cardiovascular: positive: Regular Rhythm, Regular Rate, Edema (bilateral, right worse than left). negative: JVD, Murmur Vascular Pulses: Dorsalis-Pedis (R): 2+, Doralis-Pedis (L): 2+ Gastrointestinal/Abdominal: positive: Flat, Soft. negative: Pulsatile Mass, Distended, Guarding, Rebound, Tenderness Musculoskeletal: negative: CVA Tenderness Integumentary: positive: Dry, Warm, Erythema (RLE worse than left). negative: Pale, Cold Neurologic: positive: Fully Oriented, Alert, Normal Mood/Affect, Motor Strength 5/5 Moderate Sedation - Procedure Monitoring Vital Signs: Procedure Monitoring Vital Signs Temperature 99.1 F 05/19/18 14:47 Pulse Rate 63 05/19/18 14:47 Respiratory Rate 18 05/19/18 14:47 Blood Pressure 155/68 05/19/18 14:47 O2 Sat by Pulse Oximetry (%) 100 05/19/18 14:47 ED Treatment Course - LABORATORY CBC & Chemistry Diagram: 05/23/18 05:30 05/23/18 06:00 Medical Decision Making - Medical Decision Making 72 yo female recently admitted (DC 04/19/18) for hypercapnic resp failure, E coli bacteremia, NIKHIL and COPD requiring Bipap and IV antibiotics DC to [facility] for rehab (DC from [facility] yesterday) pmh of R knee replacement requiring multiple revisions and antibiotic spacers sent by travel agency manager for unsafe living conditions and placement needs. According to social work and Case Management, pt has 2 dogs and home health aides/nursing staff feel unsafe also, pt reported to martin items at home. Pt also reportedly non compliant with medical treatment. Pt states she is on Ampicillin "for life" due to chronic knee infections. Pt son present who states while at [facility], pt has not had physical therapy for the last 2 weeks of her stay and since then has had increasing difficulty ambulating along with bilateral lower limb edema, redness and pain for over 2 months. Pt has no new or current medical complaints at this time but expresses concern as to why no home health aide or nurse has come to help at home since DC. According to social work, pt sent for admission due to unsafe living conditions at home along with unsafe environment for home care workers. Dog bit a home health aide Vitals wnl NAD, AOX3 non toxic appearing bilateral lower ext swelling and erythema, right worse than left, pt unable to ambulate states she needs further Physical therapy DDX INLT: cellulitis, osteomylitis,chronic wound, PVD Knee x ray shows knee replacement, no acute path or disease CXR shows enlarged heart without acute disease Spoke with ID regarding antibiotics and treatment, antibiotics ordered and pt will be admitted Pt accepted for admission by ariel *DC/Admit/Observation/Transfer Diagnosis at time of Disposition: Hospital admission due to social situation Cellulitis Qualifiers: Site of cellulitis: extremity Site of cellulitis of extremity: lower extremity Laterality: unspecified laterality Qualified Code(s): L03.119 - Cellulitis of unspecified part of limb - Discharge Dispostion Condition at time of disposition: Fair Decision to Admit order: Yes - Referrals - Patient Instructions - Post Discharge Activity
[2018-05-19 17:59] LABS: BASO % 0.1 % (0-2.0); EOS % 1.4 % (0-4.5); HEMATOCRIT 37.9 % (32.4-45.2); HEMOGLOBIN 12.4 GM/dL (10.7-15.3); LYMPH % 2.3 % (8-40); MCH 27.2 pg (25.7-33.7); MCHC 32.7 g/dl (32.0-36.0); MEAN CELL VOLUME 83.3 fl (80-96); MEAN PLT VOLUME 9.1 fl (7.5-11.1); MONO % 2.3 % (3.8-10.2); NEUT % 93.9 % (42.8-82.8); PLATELET COUNT 147 K/MM3 (134-434); RBC 4.55 M/mm3 (3.60-5.2); RDW 18.5 % (11.6-15.6); WHITE BLOOD COUNT 10.2 K/mm3 (4.0-10.0)
[2018-05-19 18:21] LABS: ALK PHOS 299 U/L (45-117); ANION GAP 5 MMOL/L (8-16); BILIRUBIN,TOTAL 1.7 mg/dL (0.2-1); BLOOD UREA NITROGEN 56 mg/dL (7-18); CALCIUM 7.9 mg/dL (8.5-10.1); CHLORIDE 108 mmol/L (98-107); CO2 29 mmol/L (21-32); CREATININE 1.6 mg/dL (0.55-1.3); GLUCOSE,RANDOM 91 mg/dL (74-106); MAGNESIUM 2.1 mg/dL (1.8-2.4); POTASSIUM 4.1 mmol/L (3.5-5.1); SGOT/AST 160 U/L (15-37); SGPT/ALT 261 U/L (13-61); SODIUM 142 mmol/L (136-145); TOT PROT 4.9 g/dl (6.4-8.2)
[2018-05-19 18:33] LABS: PROTHROMBIN TIME (PATIENT) 11.8 SEC (9.7-13.0)
[2018-05-19] MEDS ORDERED: VANCOMYCIN 1 GM in D5W (PRE-DOCKED) 1,000 MG/250 ML IVPB ONE (18:48)
[2018-05-19] MEDS ORDERED: MEROPENEM 1 GM in DEXTROSE 5%-WATER 100 ML IVPB ONE (18:48)
[2018-05-19] MEDS ORDERED: VANCOMYCIN 1 GRAM (PRE-DOCKED) 1,000 MG/250 ML BAG IVPB ONE (19:34)
[2018-05-19 20:41] LABS: PLATELET ESTIMATE ADEQUATE
[2018-05-19] MEDS ORDERED: morphine SULFATE IMMEDIATE RELEASE 30 MG TAB PO ONE (20:46)
--- NOTE | 2018-05-19 20:47 | HP ---
CHIEF COMPLAINT:unable to ambulate , sever knee pain PCP:DR Albrecht HISTORY OF PRESENT ILLNESS: 72 yo female recently admitted (DC 04/19/18) for hypercapnic resp failure, E coli bacteremia, NIKHIL and COPD requiring Bipap and IV antibiotics DC to [facility] for rehab (DC from [facility] yesterday) pmh of R knee replacement requiring multiple revisions and antibiotic spacers sent by interior design project manager for unsafe living conditions and placement needs. According to social work and Case Management, pt has 2 dogs and home health aides/nursing staff feel unsafe also, pt reported to martin items at home. Pt also reportedly non compliant with medical treatment. Pt states she is on Ampicillin "for life" due to chronic knee infections. Pt son present who states while at [facility], pt has not had physical therapy for the last 2 weeks of her stay and since then has had increasing difficulty ambulating along with bilateral lower limb edema, redness and pain for over 2 months. Pt has no new or current medical complaints at this time but expresses concern as to why no home health aide or nurse has come to help at home since DC. complain of right knee pain , 9/10 local non radiating has been there for years complain of local chest pain chandrakant sternal , non radiating but denies any sob , or palpitation , reports productive cough of velez sputum , has been treated fro PNA last month deneis any fever , chills, N/V/D/C. denies any urinary symptoms , denies abdominal pain son at bed side claim he is not able to take care of her as well as the visiting nurse who decide to send her to ED [facility] who told her there is a loose hard ríos and an old fx per pt . ER course was notable for: (1)cbc, cmp (2)Knee X ray (3)Vanco meropenem Recent Travel:[place] , DC yesterday from [facility] PAST MEDICAL HISTORY: per HPI PAST SURGICAL HISTORY: cardiac stent X4 , right knee surgery , Cholecystetomy Social History: Smoking:former smoker 1/2 PPD for 24 years quit long time ago Alcohol:socially Drugs: denies Family History: Allergies metoprolol Allergy (Verified 04/13/18 07:23) metronidazole Allergy (Verified 04/13/18 07:23) HOME MEDICATIONS: Home Medications Medication Instructions Recorded Aspirin [ASA -] 81 mg PO DAILY 10/05/13 Gabapentin 300 mg PO BID 10/05/13 Simvastatin [Zocor -] 40 mg PO HS 10/05/13 Morphine *Immediate Release* [Msir 30 mg PO Q4H PRN 03/15/14 -] Calcium 500Mg/Vit-D 200 Units 2 tab PO DAILY tab 01/24/18 [Os-Jorge 500+D -] Enoxaparin [Lovenox -] 40 mg SQ DAILY disp.syrin 01/24/18 Morphine *Sr* [Ms Contin -] 45 mg PO BID #60 tablet.sa MDD 90 01/24/18 mg Clopidogrel Bisulfate [Plavix -] 75 mg PO DAILY 03/30/18 Docusate Sodium [Colace -] 300 mg PO DAILY 03/30/18 Albuterol 2.5/Ipratropium 0.5 1 amp NEB RQID amp 04/19/18 [Duoneb -] Amlodipine Besylate [Norvasc -] 10 mg PO DAILY tablet 04/19/18 Guaifenesin [Robitussin -] 10 ml PO Q6H PRN cup 04/19/18 Insulin Sliding Scale [Novolog 1 vial SQ ACHS units 04/19/18 Vial Sliding Scale -] Losartan Potassium [Cozaar -] 50 mg PO DAILY tablet 04/19/18 Nystatin Powder [Nystop Powder -] 1 applic TP DAILY applic 04/19/18 Pantoprazole Sodium [Protonix -] 20 mg PO DAILY tablet.ec 04/19/18 Prednisone [Deltasone] 40 mg PO DAILY #5 tablet 04/19/18 REVIEW OF SYSTEMS: un able to ambulate , sever knee pain CONSTITUTIONAL: Absent: fever, chills, diaphoresis, generalized weakness, malaise, loss of appetite, weight change HEENT: Absent: rhinorrhea, nasal congestion, throat pain, throat swelling, difficulty swallowing, mouth swelling, ear pain, eye pain, visual changes CARDIOVASCULAR: Absent: chest pain, syncope, palpitations, irregular heart rate, lightheadedness , peripheral edema RESPIRATORY: Absent: cough, shortness of breath, dyspnea with exertion, orthopnea, wheezing, stridor, hemoptysis GASTROINTESTINAL: Absent: abdominal pain, abdominal distension, nausea, vomiting, diarrhea, constipation, melena, hematochezia GENITOURINARY: Absent: dysuria, frequency, urgency, hesitancy, hematuria, flank pain, genital pain MUSCULOSKELETAL: Absent: myalgia, arthralgia, joint swelling, back pain, neck pain SKIN: Absent: rash, itching, pallor HEMATOLOGIC/IMMUNOLOGIC: Absent: easy bleeding, easy bruising, lymphadenopathy, frequent infections ENDOCRINE: Absent: unexplained weight gain, unexplained weight loss, heat intolerance, cold intolerance NEUROLOGIC: Absent: headache, focal weakness or paresthesias, dizziness, unsteady gait, seizure, mental status changes, bladder or bowel incontinence PSYCHIATRIC: Absent: anxiety, depression, suicidal or homicidal ideation, hallucinations. PHYSICAL EXAMINATION Vital Signs - 24 hr 05/19/18 14:47 Temperature 99.1 F Pulse Rate 63 Respiratory 18 Rate Blood Pressure 155/68 O2 Sat by Pulse 100 Oximetry (%) GENERAL: Awake, alert, and fully oriented, in no acute distress.poor hygiene, morbid obese HEAD: Normal with no signs of trauma. EYES: Pupils equal, round and reactive to light, extraocular movements intact, ENT: Dry mucous membranes. NECK: supple LUNGS: Breath sounds equal, clear to auscultation bilaterally. HEART: Regular rate and rhythm, normal S1 and S2 without murmur, rub or gallop. ABDOMEN: Soft,obese nontender, not distended, normoactive bowel sounds, MUSCULOSKELETAL: Normal range of motion at all joints. No bony deformities or tenderness. No CVA tenderness. UPPER EXTREMITIES: 2+ pulses, warm, well-perfused. No cyanosis right hand congenial deformity , LOWER EXTREMITIES: 2+ pulses, warm, well-perfused. No calf tenderness. non pitting peripheral edema B/L , B/L erythema but it s not warm , tenderness on right anterior shukla NEUROLOGICAL: Cranial nerves II-XII intact. Normal speech.foot extensiona nd flexion 5/5 , unable to raise her foot of bed , PSYCHIATRIC: Cooperative. Good eye contact. SKIN: Warm, dry,B/L LE erythema with non pititng edema , right arm echymosis Laboratory Results - last 24 hr 05/19/18 05/19/18 05/19/18 17:14 17:14 17:14 WBC 10.2 H RBC 4.55 Hgb 12.4 Hct 37.9 D MCV 83.3 MCH 27.2 MCHC 32.7 RDW 18.5 H Plt Count 147 MPV 9.1 Absolute Neuts (auto) 9.6 H Neutrophils % 93.9 H Neutrophils % (Manual) 96.0 H Band Neutrophils % 1.0 Lymphocytes % 2.3 L D Lymphocytes % (Manual) 3.0 L Monocytes % 2.3 L Monocytes % (Manual) 0 L D Eosinophils % 1.4 D Eosinophils % (Manual) 0.0 D Basophils % 0.1 Basophils % (Manual) 0.0 Nucleated RBC % 0 Platelet Estimate Adequate ESR PT with INR INR PTT (Actin FS) 27.5 Sodium 142 Potassium 4.1 Chloride 108 H Carbon Dioxide 29 Anion Gap 5 L BUN 56 H Creatinine 1.6 H Creat Clearance w eGFR 31.78 Random Glucose 91 Lactic Acid Calcium 7.9 L Magnesium 2.1 Total Bilirubin 1.7 H AST 160 H ALT 261 H Alkaline Phosphatase 299 H C-Reactive Protein Total Protein 4.9 L Albumin 2.0 L Blood Type Antibody Screen 05/19/18 05/19/18 05/19/18 17:14 17:14 17:14 WBC RBC Hgb Hct MCV MCH MCHC RDW Plt Count MPV Absolute Neuts (auto) Neutrophils % Neutrophils % (Manual) Band Neutrophils % Lymphocytes % Lymphocytes % (Manual) Monocytes % Monocytes % (Manual) Eosinophils % Eosinophils % (Manual) Basophils % Basophils % (Manual) Nucleated RBC % Platelet Estimate ESR 36 H PT with INR 11.80 INR 1.00 PTT (Actin FS) Sodium Potassium Chloride Carbon Dioxide Anion Gap BUN Creatinine Creat Clearance w eGFR Random Glucose Lactic Acid Calcium Magnesium Total Bilirubin AST ALT Alkaline Phosphatase C-Reactive Protein > 19.0 H Total Protein Albumin Blood Type Antibody Screen 05/19/18 05/19/18 17:25 17:25 WBC RBC Hgb Hct MCV MCH MCHC RDW Plt Count MPV Absolute Neuts (auto) Neutrophils % Neutrophils % (Manual) Band Neutrophils % Lymphocytes % Lymphocytes % (Manual) Monocytes % Monocytes % (Manual) Eosinophils % Eosinophils % (Manual) Basophils % Basophils % (Manual) Nucleated RBC % Platelet Estimate ESR PT with INR INR PTT (Actin FS) Sodium Potassium Chloride Carbon Dioxide Anion Gap BUN Creatinine Creat Clearance w eGFR Random Glucose Lactic Acid 1.5 Calcium Magnesium Total Bilirubin AST ALT Alkaline Phosphatase C-Reactive Protein Total Protein Albumin Blood Type O POSITIVE Antibody Screen Negative CBC, BMP 05/19/18 17:14 05/19/18 17:14 ASSESSMENT/PLAN: # Unable to ambulate * due to morbid obesity and knee pain * had multiple surgeries on right knee , does not seem infected * Ortho consult * pain control * PT * 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 * given Vanc and meropenem in ED , monitor off abx #Atypical chest pain * trend trop * EKG * ASA # Transaminitis * AST 160 ALT [id number] * US with hepatocellular disease * trend lab if no improvement consult GI # CAD # HTN # HLD * cont home meds Losartan ,Norvasc , ASA , plavix , Zocor # Obesity * BMI 88.6 * educated about life style changes and low calory diet # SANGITA * at her base line * oral fluids * avoid nephrotoxic agents # Cellulites, stable * leg with erythema but not worm and no WBC # Chronic Knee pain * cont home dose morphine sort acting Q 4 and long acting BID , gabapentin # Diabetes mellitus * ISS ACHS * diabetic diet * life style changes ? 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 Visit type - Emergency Visit Emergency Visit: Yes ED Registration Date: 05/19/18 Care time: The patient presented to the Emergency Department on the above date and was hospitalized for further evaluation of their emergent condition. - New Patient This patient is new to me today: Yes Date on this admission: 05/20/18 - Critical Care Critical Care patient: No
[2018-05-19] MEDS ORDERED: morphine SULFATE IMMEDIATE RELEASE 30 MG TAB ONE (21:03)
[2018-05-19] MEDS ORDERED: guaiFENesin 200 MG/10 ML 10 ML UNIT-DOSE CUPS PO PRN (21:21)
[2018-05-19] MEDS ORDERED: HEPARIN NA (PORCINE) 5,000 UNITS/ML 1ML VIAL SQ SCH (22:00)
--- NOTE | 2018-05-19 22:28 | PN ---
Teaching Attending Note Name of Resident: Antonio Alvarado ATTENDING PHYSICIAN STATEMENT I saw and evaluated the patient. I reviewed the resident's note and discussed the case with the resident. I agree with the resident's findings and plan as documented. SUBJECTIVE: Patient is a 72 year old woman with PMH significant for CAD s/p stents, HTN, HLD , COPD, hx of MRSA, OA, DM and Morbid Obesity presents to the emergency department from home with difficulty ambulating. Per son, the patient was discharged from [facility] 1 day prior, at where she stopped PT 2 weeks prior and she had an X-ray which showed fracture around the knee replacement hardware site. The son states since stopping PT, the patients been having increased difficulty ambulating. Per home health aide and social work nurse, the patient has 2 dogs at home, which the aide states has bit them and they feel unsafe. Per social work nurse, the patient is a hoarder. OBJECTIVE: Alert and morbidly obese Vital Signs Period Temp Pulse Resp BP Sys/Gottlieb Pulse Ox Last 24 Hr 99.1 F 63 18 155/68 100 HEENT: No Jaundice, eye redness or discharge, PERRLA, EOMI. Normocephalic, atraumatic. External ears are normal and hearing is grossly intact. No nasal discharge. Neck: Supple, nontender. No palpable adenopathy or thyromegaly. No JVD Chest: Good effort. Clear to auscultation and percussion. Heart: Regular. No S3, rub or murmur Abdomen: Obese with pannus; Not distended, soft, nontender and no HSM. No rebound or guarding. Normal bowel sounds. Ext: Peripheral pulses intact. Bilateral non pitting leg edema (R>L), with chronic stasis dermatitis/venous stasis changes. Not warm. Skin: Warm and dry. No petechiae, rash or ecchymosis. Neuro: Alert. Oriented x3. CN 2-12 grossly intact. Sensation grossly intact in all four extremities and DTR are symmetric. Psych: Appropriate mood and affect. Good insight. Current Medications Generic Name Dose Route Start Last Admin Trade Name Freq PRN Reason Stop Dose Admin Albuterol/Ipratropium 1 amp 05/20/18 08:00 Duoneb - NEB RQID EFRAIN Amlodipine Besylate 10 mg 05/20/18 10:00 Norvasc - PO DAILY EFRAIN Aspirin 81 mg 05/20/18 10:00 Asa - PO DAILY [facility] Atorvastatin Calcium 20 mg 05/19/18 22:00 Lipitor - PO HS [facility] Calcium Carbonate/Cholecalciferol 2 tab 05/20/18 10:00 Os-Jorge 500+D - PO DAILY [facility] Clopidogrel Bisulfate 75 mg 05/20/18 10:00 Plavix - PO DAILY [facility] Docusate Sodium 300 mg 05/20/18 10:00 Colace - PO DAILY [facility] Enoxaparin Sodium 40 mg 05/20/18 10:00 Lovenox - SQ DAILY [facility] Gabapentin 300 mg 05/19/18 22:00 Neurontin - PO BID [facility] Guaifenesin 10 ml 05/19/18 21:21 Robitussin - PO Q6H PRN COUGH Insulin Aspart 1 vial 05/19/18 22:00 Novolog Vial Sliding Scale - SQ ACHS [facility] Protocol Losartan Potassium 50 mg 05/20/18 10:00 Cozaar - PO DAILY [facility] Morphine Sulfate 30 mg 05/19/18 21:21 Msir - PO Q4H PRN PAIN LEVEL 6-10 Morphine Sulfate 45 mg 05/19/18 22:00 Ms Contin - PO BID [facility] Nystatin 1 applic 05/20/18 10:00 Nystop Powder - TP DAILY [facility] Pantoprazole Sodium 20 mg 05/20/18 10:00 Protonix - PO DAILY [facility] Prednisone 40 mg 05/20/18 10:00 Deltasone - PO DAILY [facility] Home Medications Medication Instructions Recorded Aspirin [ASA -] 81 mg PO DAILY 10/05/13 Gabapentin 300 mg PO BID 10/05/13 Simvastatin [Zocor -] 40 mg PO HS 10/05/13 Morphine *Immediate Release* [Msir 30 mg PO Q4H PRN 03/15/14 -] Calcium 500Mg/Vit-D 200 Units 2 tab PO DAILY tab 01/24/18 [Os-Jorge 500+D -] Enoxaparin [Lovenox -] 40 mg SQ DAILY disp.syrin 01/24/18 Morphine *Sr* [Ms Contin -] 45 mg PO BID #60 tablet.sa MDD 90 01/24/18 mg Clopidogrel Bisulfate [Plavix -] 75 mg PO DAILY 03/30/18 Docusate Sodium [Colace -] 300 mg PO DAILY 03/30/18 Albuterol 2.5/Ipratropium 0.5 1 amp NEB RQID amp 04/19/18 [Duoneb -] Amlodipine Besylate [Norvasc -] 10 mg PO DAILY tablet 04/19/18 Guaifenesin [Robitussin -] 10 ml PO Q6H PRN cup 04/19/18 Insulin Sliding Scale [Novolog 1 vial SQ ACHS units 04/19/18 Vial Sliding Scale -] Losartan Potassium [Cozaar -] 50 mg PO DAILY tablet 04/19/18 Nystatin Powder [Nystop Powder -] 1 applic TP DAILY applic 04/19/18 Pantoprazole Sodium [Protonix -] 20 mg PO DAILY tablet.ec 04/19/18 Prednisone [Deltasone] 40 mg PO DAILY #5 tablet 04/19/18 ASSESSMENT AND PLAN: 1. Right knee pain/Inability to ambulate - Xray of the right knee didnot show any fracture. May have malfunction of the knee replacement hardware. Will consult Ortho. Mordid obesity is likely primary reason for mobility issues. Leukocytosis may be due to steroid therapy. No obvious source of infection - the changes in her legs are chronic. CXR shows cardiomegaly. Sonogram of the liver shows absent gall bladder, enlarged liver and advanced hepatocellular disease. She has had recurrent unexplained reversible elevations in her LFTs in the past 6 months. No obvious evidence of cholangitis at this time. Will trend LFTs, withhold antibiotics and consult ID and GI. Get Urinalysis STAT. She got vancomycin and zosyn in the ER. Consult healthcare consulting manager and Photocopying Equipment Mechanic. 2. Hypoalbuminemia - Possibly due to combined effects of malnutrition, liver disease and inflammation associated with comorbid chronic conditions. Will ensure adequate dietary protein intake and also consult service line layer. 3. DM For now, we will hold the home diabetes drugs and implement sliding scale insulin regimen. Provide comprehensive diabetes care with patient teaching and counseling about the importance of adherence to prescribed diabetes regimen, euglycemia, eye care and foot care. 4. Morbid Obesity Counseled on the risks associated with obesity. Will provide patient all the necessary assistance, counseling and positive reinforcement to facilitate weight loss. Consult service line layer. 5. Hypertension - Restart outpatient antihypertensive drugs and revise regimen to ensure smooth [id number] good BP control. Nonpharmacologic measures to control hypertension like weight loss, salt restriction and exercise discussed. 6. DVT prophylaxis - Lovenox 40 mg SQ q 12 hours. 7. Advance directives - Full code
[2018-05-19] MEDS ORDERED: ATORVASTATIN CA 10 MG TABLET (FP) ONE (23:16)
[2018-05-19] MEDS ORDERED: morphine SO4 SUSTAINED ACTING 15 MG TABLET.SA ONE (23:17)
[2018-05-19] MEDS ORDERED: GABAPENTIN 100 MG CAPSULE (FP) ONE (23:17)
[2018-05-19] MEDS: GABAPENTIN 300 MG CAPSULE (FP) PO SCH (23:26)
[2018-05-19] MEDS: morphine SO4 SUSTAINED ACTING 15 MG TABLET.SA PO SCH (23:26)
[2018-05-19] MEDS: ATORVASTATIN CA 20 MG TABLET (FP) PO SCH (23:26)
[2018-05-19] MEDS: INSULIN SLIDING SCALE (NOVOLOG) 1 VIAL SQ SCH (23:52)
[2018-05-20] MEDS ORDERED: morphine SULFATE IMMEDIATE RELEASE 30 MG TAB ONE (03:19)
[2018-05-20] MEDS: morphine SULFATE IMMEDIATE RELEASE 30 MG TAB PO PRN ×2 (03:28→17:19)
[2018-05-20 05:48] LABS: BASO % 0.3 % (0-2.0); EOS % 3.2 % (0-4.5); LYMPH % 3.8 % (8-40); MCH 27.2 pg (25.7-33.7); MCHC 33.3 g/dl (32.0-36.0); MEAN CELL VOLUME 81.5 fl (80-96); MEAN PLT VOLUME 8.7 fl (7.5-11.1); MONO % 3.5 % (3.8-10.2); NEUT % 89.2 % (42.8-82.8); PLATELET COUNT 132 K/MM3 (134-434); RBC 4.05 M/mm3 (3.60-5.2); RDW 18.5 % (11.6-15.6); WHITE BLOOD COUNT 9.2 K/mm3 (4.0-10.0)
[2018-05-20 05:59] LABS: INR 0.98 (0.83-1.09); PROTHROMBIN TIME (PATIENT) 11.6 SEC (9.7-13.0)
[2018-05-20 06:01] LABS: ACTIVATED PTT 26.8 SECONDS (25.2-36.5)
[2018-05-20 06:23] LABS: ALBUMIN 1.8 g/dl (3.4-5.0); ALK PHOS 243 U/L (45-117); AMYLASE 17 U/L (25-115); ANION GAP 5 MMOL/L (8-16); BILIRUBIN,TOTAL 1.4 mg/dL (0.2-1); BLOOD UREA NITROGEN 47 mg/dL (7-18); CALCIUM 7.5 mg/dL (8.5-10.1); CHLORIDE 106 mmol/L (98-107); CO2 27 mmol/L (21-32); CREATININE 1.3 mg/dL (0.55-1.3); GLUCOSE,RANDOM 81 mg/dL (74-106); LIPASE 62 U/L (73-393); N-TERMINAL BNP 3054.9 pg/ml (5-125); PHOSPHOROUS 3.2 mg/dL (2.5-4.9); SGOT/AST 83 U/L (15-37); SGPT/ALT 183 U/L (13-61); SODIUM 138 mmol/L (136-145); TOT PROT 4.3 g/dl (6.4-8.2)
[2018-05-20] MEDS: INSULIN SLIDING SCALE (NOVOLOG) 1 VIAL SQ SCH ×4 (07:25→22:49)
[2018-05-20] MEDS: ALBUTEROL SO4 2.5/IPRATROPIUM 0.5 INH SOL 3 ML VIAL.NEB. NEB SCH ×4 (08:00→20:15)
[2018-05-20] MEDS ORDERED: ALBUTEROL SO4 2.5/IPRATROPIUM 0.5 INH SOL 3 ML VIAL.NEB. NEB ONE (08:01)
--- NOTE | 2018-05-20 08:53 | PN ---
Progress Note (short form) - Note Progress Note: H+P reviewed readmitted from home, due to social problems. CBC, BMP 05/20/18 05:15 05/20/18 05:15 Vital Signs Period Temp Pulse Resp BP Sys/Gottlieb Pulse Ox Last 24 Hr 97.8 F-99.1 F 62-63 18-18 121-155/60-68 96-100 s1s2 rrr lungs cta ant abd large ventral hernia soft, non-tender, +BS chr edema, stasis dermatitis no sign of acute cellulitis-this is actually the best her skin has been in 4 months awake alert anxious morbidly obese right arm atrophied and contracted imp CAD HTN IDDM chr pain syndrome NIKHIL physical therapy and social professionals evaluation dc planning to SNF
[2018-05-20] MEDS: CALCIUM 500MG/VIT-D 200 UNITS COMBO TABLET (FP) PO SCH (09:55)
[2018-05-20] MEDS: predniSONE 20 MG TABLET (UD) PO SCH (09:55)
[2018-05-20] MEDS: ENOXAPARIN NA (PORCINE) 40 MG/0.4 ML DISP.SYRIN SQ SCH (09:55)
[2018-05-20] MEDS: amLODIPine BESYLATE 10 MG TABLET (FP) PO SCH (09:55)
[2018-05-20] MEDS: GABAPENTIN 300 MG CAPSULE (FP) PO SCH ×2 (09:55→22:29)
[2018-05-20] MEDS: LOSARTAN POTASSIUM 50 MG TABLET (FP) PO SCH (09:55)
[2018-05-20] MEDS: ASPIRIN 81 MG CHEWABLE TABLETS PO SCH (09:55)
[2018-05-20] MEDS: CLOPIDOGREL BISULFATE 75 MG TABLET (FP) PO SCH (09:55)
[2018-05-20] MEDS: PANTOPRAZOLE 20 MG TABLET (FP) PO SCH (09:55)
[2018-05-20] MEDS: DOCUSATE SODIUM 100 MG CAPSULE (FP) PO SCH (09:55)
[2018-05-20] MEDS ORDERED: morphine SO4 SUSTAINED ACTING 15 MG TABLET.SA ONE (09:58)
[2018-05-20] MEDS: morphine SO4 SUSTAINED ACTING 15 MG TABLET.SA PO SCH ×2 (10:00→22:26)
[2018-05-20] MEDS: NYSTATIN POWDER 100,000 UNITS/GM - 15 GM TOPICAL POWDER TP SCH (10:04)
--- NOTE | 2018-05-20 11:08 | EKG ---
Test Reason : Blood Pressure : / mmHG Vent. Rate : 060 BPM Atrial Rate : 060 BPM P-R Int : 190 ms QRS Dur : 086 ms QT Int : 396 ms P-R-T Axes : 036 044 042 degrees QTc Int : 396 ms NORMAL SINUS RHYTHM LOW VOLTAGE QRS CANNOT RULE OUT ANTERIOR INFARCT (CITED ON OR BEFORE 29-MAR-2018) ABNORMAL ECG Confirmed by REKHA EUGENE MD ([id number]) on 05/20/2018 11:08:34 AM Referred By: Confirmed By:REKHA EUGENE MD
--- NOTE | 2018-05-20 11:10 | CON.ORTH ---
Consult Reason for Consultation:: right knee pain - Past Medical History Cardio/Vascular: Yes: CAD (s/p cardiac stents, last cath in Mar 2014 showed nonobstructive disease), HTN, Hyperlipdemia Pulmonary: Yes: COPD Gastrointestinal: Yes: Constipation Renal/: Yes: Renal Inusuff Infectious Disease: Yes: MRSA (h/o MRSA several years ago) Psych: Yes: Anxiety, Panic Musculoskeletal: Yes: Osteoarthritis Endocrine: Yes: Diabetes Mellitus, Other (Morbid Obesity) - Past Surgical History Past Surgical History: Yes: Cholecystectomy, Hysterectomy, Joint Replacement (R knee as above) - Alcohol/Substance Use Hx Alcohol Use: No - Smoking History Smoking history: Former smoker Have you smoked in the past 12 months: No Aproximately how many cigarettes per day: 0 If you are a former smoker, when did you quit?: 15 years ago - Social History ADL: Family Assistance History of Recent Travel: No Home Medications - Allergies Allergies/Adverse Reactions: Allergies Allergy/AdvReac Type Severity Reaction Status Date / Time metoprolol Allergy Verified 04/13/18 07:23 metronidazole Allergy Verified 04/13/18 07:23 - Home Medications Home Medications: Ambulatory Orders Aspirin [ASA -] 81 mg PO DAILY 10/05/13 Gabapentin 300 mg PO BID 10/05/13 Simvastatin [Zocor -] 40 mg PO HS 10/05/13 Morphine *Immediate Release* [Msir -] 30 mg PO Q4H PRN 03/15/14 Calcium 500Mg/Vit-D 200 Units [Os-Jorge 500+D -] 2 tab PO DAILY tab 01/24/18 Enoxaparin [Lovenox -] 40 mg SQ DAILY disp.syrin 01/24/18 Morphine *Sr* [Ms Contin -] 45 mg PO BID #60 tablet.sa MDD 90 mg 01/24/18 Clopidogrel Bisulfate [Plavix -] 75 mg PO DAILY 03/30/18 Docusate Sodium [Colace -] 300 mg PO DAILY 03/30/18 Albuterol 2.5/Ipratropium 0.5 [Duoneb -] 1 amp NEB RQID amp 04/19/18 Amlodipine Besylate [Norvasc -] 10 mg PO DAILY tablet 04/19/18 Guaifenesin [Robitussin -] 10 ml PO Q6H PRN cup 04/19/18 Insulin Sliding Scale [Novolog Vial Sliding Scale -] 1 vial SQ ACHS units 04/19 Losartan Potassium [Cozaar -] 50 mg PO DAILY tablet 04/19/18 Nystatin Powder [Nystop Powder -] 1 applic TP DAILY applic 04/19/18 Pantoprazole Sodium [Protonix -] 20 mg PO DAILY tablet.ec 04/19/18 Prednisone [Deltasone] 40 mg PO DAILY #5 tablet 04/19/18 Physical Exam for Ortho Vital Signs: Vital Signs Temperature 98 F 05/20/18 09:55 Pulse Rate 63 05/20/18 09:55 Respiratory Rate 18 05/20/18 09:55 Blood Pressure 139/63 05/20/18 09:55 O2 Sat by Pulse Oximetry (%) 98 05/20/18 09:55 Constitutional: Yes: Obese Labs: CBC, BMP 05/20/18 05:15 05/20/18 05:15 INR, PTT INR 0.98 (0.83-1.09) 05/20/18 05:15 - Lower Extremity Knee: Yes: Right, Limited ROM, Pain, Swelling, Tenderness, Other (nvi) Imaging - Results X-ray: Report Reviewed, Image Reviewed Assessment/Plan 72 yo female recently admitted (DC 04/19/18) for hypercapnic resp failure, E coli bacteremia, NIKHIL and COPD requiring Bipap and IV antibiotics DC to [facility] for rehab (DC from [facility] yesterday) pmh of R knee replacement requiring multiple revisions and antibiotic spacers sent by completions manager for unsafe living conditions and placement needs. According to social work and Case Management, pt has 2 dogs and home health aides/nursing staff feel unsafe also, pt reported to martin items at home. Pt also reportedly non compliant with medical treatment. Pt states she is on Ampicillin "for life" due to chronic knee infections. Pt son present who states while at [facility], pt has not had physical therapy for the last 2 weeks of her stay and since then has had increasing difficulty ambulating along with bilateral lower limb edema, redness and pain for over 2 months. Pt has no new or current medical complaints at this time but expresses concern as to why no home health aide or nurse has come to help at home since DC. a/p right knee chronic septic TKR, multiple revisions, evidence of loosening No surgical intervention PT eval wbat IV abx as per med/ID Pt to f/u with her surgeon upon d/c d/w Dr. Araujo
[2018-05-20] MEDS ORDERED: FLU VACCINE QUAD 60 MCG/0.5 ML (MDV 18-19) IM ONE (18:00)
[2018-05-20] MEDS ORDERED: INSULIN (NOVOLOG) ASPART 100 UNITS/ML 10ML VIAL ONE (20:45)
--- NOTE | 2018-05-20 21:31 | CONSULT ---
Consult Consult Specialty:: Podiatry Reason for Consultation:: Elongated nails with dry skin b/l plantar feet and pvd. - History of Present Illness Chief Complaint: elongated nails. dry skin. History of Present Illness: Chronic fungal toe nails. Dry skin. Diabetes. PVD. - History Source History Provided By: Patient - Past Medical History Cardio/Vascular: Yes: CAD (s/p cardiac stents, last cath in Mar 2014 showed nonobstructive disease), HTN, Hyperlipdemia Pulmonary: Yes: COPD Gastrointestinal: Yes: Constipation Renal/: Yes: Renal Inusuff ...: No Infectious Disease: Yes: MRSA (h/o MRSA several years ago) Psych: Yes: Anxiety, Panic Musculoskeletal: Yes: Osteoarthritis Endocrine: Yes: Diabetes Mellitus, Other (Morbid Obesity) - Past Surgical History Past Surgical History: Yes: Cholecystectomy, Hysterectomy, Joint Replacement (R knee as above) - Alcohol/Substance Use Hx Alcohol Use: No - Smoking History Smoking history: Former smoker Have you smoked in the past 12 months: No Aproximately how many cigarettes per day: 0 If you are a former smoker, when did you quit?: 15 years ago - Social History ADL: Family Assistance History of Recent Travel: No Home Medications - Allergies Allergies/Adverse Reactions: Allergies Allergy/AdvReac Type Severity Reaction Status Date / Time metoprolol Allergy Verified 04/13/18 07:23 metronidazole Allergy Verified 04/13/18 07:23 - Home Medications Home Medications: Ambulatory Orders Aspirin [ASA -] 81 mg PO DAILY 10/05/13 Gabapentin 300 mg PO BID 10/05/13 Simvastatin [Zocor -] 40 mg PO HS 10/05/13 Morphine *Immediate Release* [Msir -] 30 mg PO Q4H PRN 03/15/14 Calcium 500Mg/Vit-D 200 Units [Os-Jorge 500+D -] 2 tab PO DAILY tab 01/24/18 Enoxaparin [Lovenox -] 40 mg SQ DAILY disp.syrin 01/24/18 Morphine *Sr* [Ms Contin -] 45 mg PO BID #60 tablet.sa MDD 90 mg 01/24/18 Clopidogrel Bisulfate [Plavix -] 75 mg PO DAILY 03/30/18 Docusate Sodium [Colace -] 300 mg PO DAILY 03/30/18 Albuterol 2.5/Ipratropium 0.5 [Duoneb -] 1 amp NEB RQID amp 04/19/18 Amlodipine Besylate [Norvasc -] 10 mg PO DAILY tablet 04/19/18 Guaifenesin [Robitussin -] 10 ml PO Q6H PRN cup 04/19/18 Insulin Sliding Scale [Novolog Vial Sliding Scale -] 1 vial SQ ACHS units 04/19 Losartan Potassium [Cozaar -] 50 mg PO DAILY tablet 04/19/18 Nystatin Powder [Nystop Powder -] 1 applic TP DAILY applic 04/19/18 Pantoprazole Sodium [Protonix -] 20 mg PO DAILY tablet.ec 04/19/18 Prednisone [Deltasone] 40 mg PO DAILY #5 tablet 04/19/18 Physical Exam Vital Signs: Vital Signs Temperature 98.2 F 05/20/18 17:00 Pulse Rate 67 05/20/18 17:00 Respiratory Rate 20 05/20/18 17:00 Blood Pressure 148/69 05/20/18 17:00 O2 Sat by Pulse Oximetry (%) 92 L 05/20/18 16:36 Extremities: Yes: Other (+tender dystrophic mycotic nails with subungual debris x 10, +xerosis right greater than left, non palpable pulses,) Labs: CBC, BMP 05/20/18 05:15 05/20/18 05:15 Assessment/Plan onychomycosis pain xerosis pvd Debride nails in ER by Dr. Ward. Dr. Ward covering for me and unable to write note into computer. Dictated to me and typed by me. Will follow patient.
[2018-05-20] MEDS: ATORVASTATIN CA 20 MG TABLET (FP) PO SCH (22:29)
[2018-05-21] MEDS: morphine SULFATE IMMEDIATE RELEASE 30 MG TAB PO PRN ×2 (05:27→20:35)
[2018-05-21] MEDS: INSULIN SLIDING SCALE (NOVOLOG) 1 VIAL SQ SCH ×4 (07:28→23:09)
[2018-05-21] MEDS: ALBUTEROL SO4 2.5/IPRATROPIUM 0.5 INH SOL 3 ML VIAL.NEB. NEB SCH ×4 (07:45→20:50)
[2018-05-21] MEDS ORDERED: PT OWN MED DRAWER 7, Y5N ONE (09:59)
[2018-05-21] MEDS: ASPIRIN 81 MG CHEWABLE TABLETS PO SCH (10:11)
[2018-05-21] MEDS: morphine SO4 SUSTAINED ACTING 15 MG TABLET.SA PO SCH ×2 (10:11→22:19)
[2018-05-21] MEDS: DOCUSATE SODIUM 100 MG CAPSULE (FP) PO SCH (10:11)
[2018-05-21] MEDS: CLOPIDOGREL BISULFATE 75 MG TABLET (FP) PO SCH (10:13)
[2018-05-21] MEDS: CALCIUM 500MG/VIT-D 200 UNITS COMBO TABLET (FP) PO SCH (10:14)
[2018-05-21] MEDS: PANTOPRAZOLE 20 MG TABLET (FP) PO SCH (10:14)
[2018-05-21] MEDS: GABAPENTIN 300 MG CAPSULE (FP) PO SCH ×2 (10:14→22:22)
[2018-05-21] MEDS: ENOXAPARIN NA (PORCINE) 40 MG/0.4 ML DISP.SYRIN SQ SCH (10:14)
[2018-05-21] MEDS: predniSONE 20 MG TABLET (UD) PO SCH (10:14)
[2018-05-21] MEDS: LOSARTAN POTASSIUM 50 MG TABLET (FP) PO SCH (10:14)
[2018-05-21] MEDS: amLODIPine BESYLATE 10 MG TABLET (FP) PO SCH (10:14)
[2018-05-21] MEDS: NYSTATIN POWDER 100,000 UNITS/GM - 15 GM TOPICAL POWDER TP SCH (12:12)
[2018-05-21] MEDS ORDERED: INSULIN (NOVOLOG) ASPART 100 UNITS/ML 10ML VIAL ONE (12:14)
--- NOTE | 2018-05-21 16:43 | PN ---
Progress Note (short form) - Note Progress Note: CBC, BMP 05/20/18 05:15 05/20/18 05:15 Vital Signs Period Temp Pulse Resp BP Sys/Gottlieb Pulse Ox Last 24 Hr 98 F-98.2 F 57-68 18-20 112-148/56-87 94 S1S2 RRR lungs cta ant abd large ventral hernia soft, non-tender, +BS chr edema, stasis dermatitis no sign of acute cellulitis-this is actually the best her skin has been in 4 months awake alert anxious morbidly obese right arm atrophied and contracted imp CAD HTN IDDM chr pain syndrome NIKHIL physical therapy and mental health social worker evaluation dc planning to SNF add lasix po for mild congestion
[2018-05-21] MEDS ORDERED: INSULIN (NOVOLOG) ASPART 100 UNITS/ML 10ML VIAL SQ ONE (19:00)
[2018-05-21] MEDS: ATORVASTATIN CA 20 MG TABLET (FP) PO SCH (22:20)
[2018-05-22] MEDS: INSULIN SLIDING SCALE (NOVOLOG) 1 VIAL SQ SCH ×4 (06:49→22:48)
[2018-05-22] MEDS: morphine SULFATE IMMEDIATE RELEASE 30 MG TAB PO PRN (06:52)
[2018-05-22] MEDS: ALBUTEROL SO4 2.5/IPRATROPIUM 0.5 INH SOL 3 ML VIAL.NEB. NEB SCH ×4 (07:34→20:22)
--- NOTE | 2018-05-22 08:51 | PN ---
Progress Note (short form) - Note Progress Note: Patiet seen in room. Eating beakfast and resting comfortably. vss, tmax 98.2 non palpable pulses b/l feet, +xerosis, +onychomycosis, xerosis onychomycosis Nails were debrided in ER by my partner Dr. Mynor Ward. Ammonium lactate BID to feet. Foot carer q8 weeks.
--- NOTE | 2018-05-22 09:20 | PN ---
Progress Note (short form) - Note Progress Note: Vital Signs Period Temp Pulse Resp BP Sys/Gottlieb Pulse Ox Last 24 Hr 98.1 F-98.4 F 66-72 18-20 112-431/54-87 94 S1S2 RRR lungs cta ant abd large ventral hernia soft, non-tender, +BS chr edema, stasis dermatitis no sign of acute cellulitis-this is actually the best her skin has been in 4 months awake alert anxious stage 2 sacral decubitus present since admission morbidly obese right arm atrophied and contracted c/o mouth hurting her, pearly mucosa, no ulcers wet cough without fever, chills, or CXR findings imp CAD HTN IDDM chr pain syndrome NIKHIL add nystatin swish and swallow add mucinex will need extra wide walker and hospital bed if goes home physical therapy and home health care social worker evaluation dc planning to SNF vs home depending on social follow up add lasix po for mild congestion
[2018-05-22] MEDS ORDERED: AMMONIUM LACTATE 12% LOTION 225 GM BOTTLE TP PRN (10:45)
[2018-05-22] MEDS: GABAPENTIN 300 MG CAPSULE (FP) PO SCH ×2 (10:55→22:46)
[2018-05-22] MEDS: ASPIRIN 81 MG CHEWABLE TABLETS PO SCH (10:55)
[2018-05-22] MEDS: FUROSEMIDE 40 MG TABLET (FP) PO SCH (10:56)
[2018-05-22] MEDS: morphine SO4 SUSTAINED ACTING 15 MG TABLET.SA PO SCH ×2 (10:56→22:44)
[2018-05-22] MEDS: DOCUSATE SODIUM 100 MG CAPSULE (FP) PO SCH (10:58)
[2018-05-22] MEDS: ENOXAPARIN NA (PORCINE) 40 MG/0.4 ML DISP.SYRIN SQ SCH (10:58)
[2018-05-22] MEDS: amLODIPine BESYLATE 10 MG TABLET (FP) PO SCH (10:58)
[2018-05-22] MEDS: LOSARTAN POTASSIUM 50 MG TABLET (FP) PO SCH (10:59)
[2018-05-22] MEDS: CLOPIDOGREL BISULFATE 75 MG TABLET (FP) PO SCH (10:59)
[2018-05-22] MEDS: CALCIUM 500MG/VIT-D 200 UNITS COMBO TABLET (FP) PO SCH (10:59)
[2018-05-22] MEDS: PANTOPRAZOLE 20 MG TABLET (FP) PO SCH (11:00)
[2018-05-22] MEDS: predniSONE 10 MG TABLET (UD) PO SCH (11:01)
[2018-05-22] MEDS ORDERED: PT OWN MED DRAWER 7, Y5N ONE ×2 (11:52→20:52)
[2018-05-22] MEDS: guaiFENesin/D-METHORPHAN HB 1 EACH TAB.ER.12H PO SCH ×2 (12:00→22:47)
[2018-05-22] MEDS: NYSTATIN 500,000 UNITS/5 ML SUSPENSION PO SCH ×2 (12:00→18:00)
[2018-05-22] MEDS: NYSTATIN POWDER 100,000 UNITS/GM - 15 GM TOPICAL POWDER TP SCH (17:59)
[2018-05-22] MEDS: ATORVASTATIN CA 20 MG TABLET (FP) PO SCH (22:44)
[2018-05-23] MEDS: NYSTATIN 500,000 UNITS/5 ML SUSPENSION PO SCH ×4 (00:18→17:06)
[2018-05-23] MEDS: INSULIN SLIDING SCALE (NOVOLOG) 1 VIAL SQ SCH ×4 (06:18→22:29)
[2018-05-23] MEDS: ALBUTEROL SO4 2.5/IPRATROPIUM 0.5 INH SOL 3 ML VIAL.NEB. NEB SCH (07:15)
[2018-05-23 07:24] LABS: BASO % 0.5 % (0-2.0); EOS % 1.5 % (0-4.5); HEMATOCRIT 34.4 % (32.4-45.2); HEMOGLOBIN 11.7 GM/dL (10.7-15.3); LYMPH % 8.9 % (8-40); MCH 27.4 pg (25.7-33.7); MCHC 33.9 g/dl (32.0-36.0); MEAN CELL VOLUME 80.6 fl (80-96); MEAN PLT VOLUME 8.7 fl (7.5-11.1); MONO % 5.3 % (3.8-10.2); NEUT % 83.8 % (42.8-82.8); PLATELET COUNT 175 K/MM3 (134-434); RBC 4.27 M/mm3 (3.60-5.2); WHITE BLOOD COUNT 10.9 K/mm3 (4.0-10.0)
[2018-05-23 08:23] LABS: ALBUMIN 2.2 g/dl (3.4-5.0); ALK PHOS 199 U/L (45-117); ANION GAP 5 MMOL/L (8-16); BILIRUBIN,TOTAL 0.6 mg/dL (0.2-1); BLOOD UREA NITROGEN 26 mg/dL (7-18); CHLORIDE 103 mmol/L (98-107); CO2 29 mmol/L (21-32); CREATININE 1.2 mg/dL (0.55-1.3); GLUCOSE,RANDOM 71 mg/dL (74-106); POTASSIUM 4.3 mmol/L (3.5-5.1); SGOT/AST 10 U/L (15-37); SGPT/ALT 79 U/L (13-61); SODIUM 138 mmol/L (136-145); TOT PROT 5.1 g/dl (6.4-8.2)
--- NOTE | 2018-05-23 09:14 | PN ---
Progress Note (short form) - Note Progress Note: CBC, BMP 05/23/18 05:30 05/23/18 06:00 Vital Signs Period Temp Pulse Resp BP Sys/Gottlieb Pulse Ox Last 24 Hr 97.2 F-98.7 F 61-68 18-20 122-155/53-79 S1S2 RRR lungs scattered exp.wheezing abd large ventral hernia soft, non-tender, +BS chr edema, stasis dermatitis no sign of acute cellulitis awake alert, mood better stage 2 sacral decubitus present since admission morbidly obese right arm atrophied and contracted wet coughwheezing without fever, chills, or CXR findings imp CAD HTN IDDM chr pain syndrome NIKHIL astham? add sipiriva, add nebulizers qid will need extra wide walker and hospital bed if goes home encouraged to consider medicais application, she will think about it physical therapy and long term care social worker evaluation dc planning to SNF vs home depending on social follow up continue other medications
[2018-05-23 10:22] LABS: ANISOCYTOSIS 0; MACROCYTOSIS 0; PLATELET ESTIMATE NORMAL
[2018-05-23] MEDS ORDERED: PT OWN MED DRAWER 7, Y5N ONE (10:38)
[2018-05-23] MEDS: TIOTROPIUM BROMIDE 2.5 MCG (SPIRIVA) RESPIMAT INHALER IH SCH (10:44)
[2018-05-23] MEDS: ENOXAPARIN NA (PORCINE) 40 MG/0.4 ML DISP.SYRIN SQ SCH (10:45)
[2018-05-23] MEDS: morphine SO4 SUSTAINED ACTING 15 MG TABLET.SA PO SCH ×2 (10:46→22:23)
[2018-05-23] MEDS: DOCUSATE SODIUM 100 MG CAPSULE (FP) PO SCH (10:46)
[2018-05-23] MEDS: CALCIUM 500MG/VIT-D 200 UNITS COMBO TABLET (FP) PO SCH (10:47)
[2018-05-23] MEDS: CLOPIDOGREL BISULFATE 75 MG TABLET (FP) PO SCH (10:47)
[2018-05-23] MEDS: predniSONE 10 MG TABLET (UD) PO SCH (10:47)
[2018-05-23] MEDS: LOSARTAN POTASSIUM 50 MG TABLET (FP) PO SCH (10:47)
[2018-05-23] MEDS: PANTOPRAZOLE 20 MG TABLET (FP) PO SCH (10:47)
[2018-05-23] MEDS: FUROSEMIDE 40 MG TABLET (FP) PO SCH (10:47)
[2018-05-23] MEDS: GABAPENTIN 300 MG CAPSULE (FP) PO SCH ×2 (10:47→21:13)
[2018-05-23] MEDS: guaiFENesin/D-METHORPHAN HB 1 EACH TAB.ER.12H PO SCH ×2 (10:48→22:23)
[2018-05-23] MEDS: ASPIRIN 81 MG CHEWABLE TABLETS PO SCH (10:48)
[2018-05-23] MEDS: amLODIPine BESYLATE 10 MG TABLET (FP) PO SCH (10:48)
[2018-05-23] MEDS: NYSTATIN POWDER 100,000 UNITS/GM - 15 GM TOPICAL POWDER TP SCH (10:54)
[2018-05-23] MEDS: ALBUTEROL SO4 0.083% IH SOL 2.5 MG/3 ML VIAL.NEB. NEB SCH ×3 (11:29→22:00)
--- NOTE | 2018-05-23 16:33 | PN ---
Progress Note (short form) - Note Progress Note: Surgery Asked to evaluate patient for sacral decubitus. Vital Signs Temp 98.7 F 05/23/18 15:00 Pulse 75 05/23/18 15:00 Resp 20 05/23/18 15:00 BP 103/58 L 05/23/18 15:00 Pulse Ox 98 05/23/18 09:00 Intake & Output 05/22/18 05/23/18 05/23/18 23:59 11:59 23:59 Intake Total 1200 300 Output Total 800 700 Balance 400 -400 Weight 239 lb Intake: Oral 1200 300 Output: Urine 800 700 External Catheter 800 700 Other: Voiding Method External Catheter External Catheter # Unmeasured Voids External Catheter 1 1 Bowel Movement No Weight Measurement Method Built in [facility] CBC, BMP 05/23/18 05:30 05/23/18 06:00 PE: A&Ox3,NAD Unlabored resp on RA Small @[id number] stage 2 sacral decubitus at proximal portion of gluteal cleft, surrounding tissue intact with, no tracking erythema, edema, collection or d/c. Problem List - Problems (1) Sacral decubitus ulcer, stage II Assessment/Plan: Stable stage 2 ulcer. 1) Bacitracin to ulcer daily 2) Optifoam to sacrum daily 3) Keep area clean and dry 4) Off load pressure sensitive areas 5) Frequent positioning 6) reconsult surgery PRN Evaluation and plan discussed with Dr Hall Code(s): L89.152 - PRESSURE ULCER OF SACRAL REGION, STAGE 2
[2018-05-23] MEDS: morphine SULFATE IMMEDIATE RELEASE 30 MG TAB PO PRN (18:07)
[2018-05-23] MEDS: ATORVASTATIN CA 20 MG TABLET (FP) PO SCH (21:13)
[2018-05-24] MEDS: NYSTATIN 500,000 UNITS/5 ML SUSPENSION PO SCH ×5 (01:26→23:28)
[2018-05-24] MEDS: INSULIN SLIDING SCALE (NOVOLOG) 1 VIAL SQ SCH ×4 (06:45→22:05)
[2018-05-24] MEDS: morphine SULFATE IMMEDIATE RELEASE 30 MG TAB PO PRN ×2 (06:46→18:04)
[2018-05-24] MEDS: ALBUTEROL SO4 0.083% IH SOL 2.5 MG/3 ML VIAL.NEB. NEB SCH ×4 (08:04→21:46)
--- NOTE | 2018-05-24 08:32 | PN ---
Progress Note (short form) - Note Progress Note: CBC, BMP 05/23/18 05:30 05/23/18 06:00 Vital Signs Period Temp Pulse Resp BP Sys/Gottlieb Pulse Ox Last 24 Hr 98.7 F-98.7 F 75-92 20-20 103-140/58-82 98-98 S1S2 RRR lungs clear anteriorly abd large ventral hernia soft, non-tender, +BS chr edema, stasis dermatitis no sign of acute cellulitis awake alert, mood better stage 2 sacral decubitus present since admission morbidly obese right arm atrophied and contracted imp CAD HTN IDDM chr pain syndrome NIKHIL asthma cont sipiriva, add nebulizers qid will need extra wide walker and hospital bed dc planning home once supplies delivered, pt currently refusing SNF continue other medications
[2018-05-24] MEDS: ASPIRIN 81 MG CHEWABLE TABLETS PO SCH (11:48)
[2018-05-24] MEDS: ENOXAPARIN NA (PORCINE) 40 MG/0.4 ML DISP.SYRIN SQ SCH (11:48)
[2018-05-24] MEDS: morphine SO4 SUSTAINED ACTING 15 MG TABLET.SA PO SCH ×3 (11:49→21:26)
[2018-05-24] MEDS: predniSONE 10 MG TABLET (UD) PO SCH (11:50)
[2018-05-24] MEDS: CALCIUM 500MG/VIT-D 200 UNITS COMBO TABLET (FP) PO SCH (11:50)
[2018-05-24] MEDS: CLOPIDOGREL BISULFATE 75 MG TABLET (FP) PO SCH (11:50)
[2018-05-24] MEDS: FUROSEMIDE 40 MG TABLET (FP) PO SCH (11:50)
[2018-05-24] MEDS: DOCUSATE SODIUM 100 MG CAPSULE (FP) PO SCH (11:51)
[2018-05-24] MEDS: GABAPENTIN 300 MG CAPSULE (FP) PO SCH ×2 (11:51→21:33)
[2018-05-24] MEDS: amLODIPine BESYLATE 10 MG TABLET (FP) PO SCH (11:51)
[2018-05-24] MEDS: PANTOPRAZOLE 20 MG TABLET (FP) PO SCH (11:51)
[2018-05-24] MEDS: LOSARTAN POTASSIUM 50 MG TABLET (FP) PO SCH (11:51)
[2018-05-24] MEDS: BACITRACIN 15 GM TUBE TOPICAL OINTMENT TP SCH (11:51)
[2018-05-24] MEDS: guaiFENesin/D-METHORPHAN HB 1 EACH TAB.ER.12H PO SCH ×2 (11:52→21:33)
[2018-05-24] MEDS: TIOTROPIUM BROMIDE 2.5 MCG (SPIRIVA) RESPIMAT INHALER IH SCH (15:48)
[2018-05-24] MEDS: NYSTATIN POWDER 100,000 UNITS/GM - 15 GM TOPICAL POWDER TP SCH (15:49)
[2018-05-24] MEDS: ATORVASTATIN CA 20 MG TABLET (FP) PO SCH (21:33)
[2018-05-25] MEDS: NYSTATIN 500,000 UNITS/5 ML SUSPENSION PO SCH ×3 (05:20→17:57)
[2018-05-25] MEDS: INSULIN SLIDING SCALE (NOVOLOG) 1 VIAL SQ SCH ×4 (06:33→21:10)
[2018-05-25] MEDS: ALBUTEROL SO4 0.083% IH SOL 2.5 MG/3 ML VIAL.NEB. NEB SCH ×4 (07:40→21:49)
[2018-05-25] MEDS: DOCUSATE SODIUM 100 MG CAPSULE (FP) PO SCH (10:47)
[2018-05-25] MEDS: FUROSEMIDE 40 MG TABLET (FP) PO SCH (10:47)
[2018-05-25] MEDS: predniSONE 10 MG TABLET (UD) PO SCH (10:47)
[2018-05-25] MEDS: ENOXAPARIN NA (PORCINE) 40 MG/0.4 ML DISP.SYRIN SQ SCH (10:47)
[2018-05-25] MEDS: CLOPIDOGREL BISULFATE 75 MG TABLET (FP) PO SCH (10:47)
[2018-05-25] MEDS: GABAPENTIN 300 MG CAPSULE (FP) PO SCH ×2 (10:47→21:10)
[2018-05-25] MEDS: CALCIUM 500MG/VIT-D 200 UNITS COMBO TABLET (FP) PO SCH (10:47)
[2018-05-25] MEDS: ASPIRIN 81 MG CHEWABLE TABLETS PO SCH (10:47)
[2018-05-25] MEDS: LOSARTAN POTASSIUM 50 MG TABLET (FP) PO SCH (10:48)
[2018-05-25] MEDS: PANTOPRAZOLE 20 MG TABLET (FP) PO SCH (10:48)
[2018-05-25] MEDS: amLODIPine BESYLATE 10 MG TABLET (FP) PO SCH (10:48)
[2018-05-25] MEDS ORDERED: PT OWN MED DRAWER 7, Y5N ONE ×2 (10:49→21:38)
[2018-05-25] MEDS: guaiFENesin/D-METHORPHAN HB 1 EACH TAB.ER.12H PO SCH ×2 (10:50→21:46)
[2018-05-25] MEDS: TIOTROPIUM BROMIDE 2.5 MCG (SPIRIVA) RESPIMAT INHALER IH SCH (10:51)
[2018-05-25] MEDS: morphine SO4 SUSTAINED ACTING 15 MG TABLET.SA PO SCH ×2 (10:52→21:07)
[2018-05-25] MEDS ORDERED: INSULIN (NOVOLOG) ASPART 100 UNITS/ML 10ML VIAL ONE ×2 (12:08→18:03)
[2018-05-25] MEDS: NYSTATIN POWDER 100,000 UNITS/GM - 15 GM TOPICAL POWDER TP SCH (13:10)
[2018-05-25] MEDS: BACITRACIN 15 GM TUBE TOPICAL OINTMENT TP SCH (13:10)
--- NOTE | 2018-05-25 13:35 | PN ---
Progress Note (short form) - Note Progress Note: CBC, BMP 05/23/18 05:30 05/23/18 06:00 Vital Signs Vital Signs Period Temp Pulse Resp BP Sys/Gottlieb Pulse Ox Last 24 Hr 97.7 F-98.6 F 60-111 10-22 135-170/57-82 96-96 S1S2 RRR lungs clear anteriorly abd large ventral hernia soft, non-tender, +BS chr edema, stasis dermatitis no sign of acute cellulitis awake alert, mood better stage 2 sacral decubitus present since admission-topical bacitracin and optiofoam morbidly obese right arm atrophied and contracted imp CAD HTN IDDM chr pain syndrome NIKHIL asthma awaiting dc planning once home is set up
[2018-05-25] MEDS: morphine SULFATE IMMEDIATE RELEASE 30 MG TAB PO PRN (18:28)
[2018-05-25] MEDS: ATORVASTATIN CA 20 MG TABLET (FP) PO SCH (21:07)
[2018-05-26] MEDS: NYSTATIN 500,000 UNITS/5 ML SUSPENSION PO SCH ×4 (07:16→17:46)
[2018-05-26] MEDS: INSULIN SLIDING SCALE (NOVOLOG) 1 VIAL SQ SCH ×4 (07:21→23:14)
[2018-05-26] MEDS: ALBUTEROL SO4 0.083% IH SOL 2.5 MG/3 ML VIAL.NEB. NEB SCH ×4 (07:30→20:13)
--- NOTE | 2018-05-26 09:10 | DS ---
Physical Examination Vital Signs: Vital Signs Temperature 97.6 F 05/26/18 07:13 Pulse Rate 58 L 05/26/18 07:13 Respiratory Rate 20 05/26/18 07:13 Blood Pressure 117/75 05/26/18 07:13 O2 Sat by Pulse Oximetry (%) 93 L 05/25/18 18:16 Constitutional: Yes: Obese Eyes: Yes: Conjunctiva Clear HENT: Yes: Normocephalic Neck: Yes: Trachea Midline Cardiovascular: Yes: Regular Rate and Rhythm Respiratory: Yes: CTA Bilaterally Gastrointestinal: Yes: Abdomen, Obese, Other (ventral hernia present) Musculoskeletal: Yes: Joint Stiffness, Other (atrophied right arm) Edema: No Peripheral Pulses WNL: Yes Integumentary: Yes: Venous Stasis Changes, Other (stage 2 sacral ulcer chronic stasis dermatitis in bilateral lower extremities) Neurological: Yes: WNL Psychiatric: Yes: WNL Labs: CBC, BMP 05/23/18 05:30 05/23/18 06:00 Discharge Summary Reason For Visit: CELLULITIS Current Active Problems Cellulitis (Acute) Hospital admission due to social situation (Acute) Sacral decubitus ulcer, stage II (Acute) Hospital Course: pt was sent to hospital a day after NH discharge due to Unsafe living environment according to [facility]NS. since then hsopital bed and rolling walker has been arranged to patient's home, son arranged for private hire. she is awaiting discharge long h/o morbid obesity, salbador, iddm, cad, anxiety and chronic pain syndrome will need close outpt f/up Condition: Guarded - Instructions Disposition: VNS/HOME HEALTH CARE - Home Medications Comprehensive Discharge Medication List: Ambulatory Orders Aspirin [ASA -] 81 mg PO DAILY 10/05/13 Calcium 500Mg/Vit-D 200 Units [Os-Jorge 500+D -] 2 tab PO DAILY tab 01/24/18 Docusate Sodium [Colace -] 300 mg PO DAILY 03/30/18 Guaifenesin [Robitussin -] 10 ml PO Q6H PRN cup 04/19/18 Insulin Sliding Scale [Novolog Vial Sliding Scale -] 1 vial SQ ACHS units 04/19 Pantoprazole Sodium [Protonix -] 20 mg PO DAILY tablet.ec 04/19/18 Amlodipine Besylate [Norvasc -] 10 mg PO DAILY #30 tablet 05/26/18 Ammonium Lactate Lotion [Lac-Hydrin 12] 1 applic TP DAILY PRN #1 bottle Bacitracin - [Bacitracin Topical Ointment -] 1 applic TP DAILY #1 tube 05/26/18 Clopidogrel Bisulfate [Plavix -] 75 mg PO DAILY #30 tablet 05/26/18 Furosemide [Lasix -] 40 mg PO DAILY #30 tablet 05/26/18 Gabapentin [Neurontin -] 300 mg PO BID #60 capsule 05/26/18 Guaifenesin Dm [Mucinex Dm -] 2 tablet PO BID tab.er.12h 05/26/18 Losartan Potassium [Cozaar -] 50 mg PO DAILY #30 tablet 05/26/18 Morphine *Immediate Release* [Msir -] 30 mg PO Q4H PRN #90 tab MDD 120mg Morphine *Sr* [Ms Contin -] 45 mg PO BID #60 tablet.sa MDD 90 mg 05/26/18 Nystatin Powder [Nystop Powder -] 1 applic TP DAILY #1 bottle 05/26/18 Prednisone [Deltasone] 20 mg PO DAILY #5 tablet 05/26/18 Simvastatin [Zocor -] 40 mg PO HS #30 tablet 05/26/18 Tiotropium Argillite [Spiriva Respimat] 2 puff IH DAILY #1 inhaler 05/26/18
[2018-05-26] MEDS ORDERED: PT OWN MED DRAWER 7, Y5N ONE ×2 (09:33→21:12)
[2018-05-26] MEDS: ENOXAPARIN NA (PORCINE) 40 MG/0.4 ML DISP.SYRIN SQ SCH (09:40)
[2018-05-26] MEDS: PANTOPRAZOLE 20 MG TABLET (FP) PO SCH (09:40)
[2018-05-26] MEDS: ASPIRIN 81 MG CHEWABLE TABLETS PO SCH (09:41)
[2018-05-26] MEDS: FUROSEMIDE 40 MG TABLET (FP) PO SCH (09:41)
[2018-05-26] MEDS: DOCUSATE SODIUM 100 MG CAPSULE (FP) PO SCH (09:41)
[2018-05-26] MEDS: CLOPIDOGREL BISULFATE 75 MG TABLET (FP) PO SCH (09:41)
[2018-05-26] MEDS: predniSONE 10 MG TABLET (UD) PO SCH (09:41)
[2018-05-26] MEDS: LOSARTAN POTASSIUM 50 MG TABLET (FP) PO SCH (09:41)
[2018-05-26] MEDS: BACITRACIN 15 GM TUBE TOPICAL OINTMENT TP SCH (09:41)
[2018-05-26] MEDS: CALCIUM 500MG/VIT-D 200 UNITS COMBO TABLET (FP) PO SCH (09:41)
[2018-05-26] MEDS: GABAPENTIN 300 MG CAPSULE (FP) PO SCH ×2 (09:41→23:08)
[2018-05-26] MEDS: amLODIPine BESYLATE 10 MG TABLET (FP) PO SCH (09:41)
[2018-05-26] MEDS: guaiFENesin/D-METHORPHAN HB 1 EACH TAB.ER.12H PO SCH ×2 (09:42→23:08)
[2018-05-26] MEDS: morphine SO4 SUSTAINED ACTING 15 MG TABLET.SA PO SCH ×2 (09:42→23:05)
[2018-05-26] MEDS: NYSTATIN POWDER 100,000 UNITS/GM - 15 GM TOPICAL POWDER TP SCH (09:44)
[2018-05-26] MEDS: TIOTROPIUM BROMIDE 2.5 MCG (SPIRIVA) RESPIMAT INHALER IH SCH (09:45)
[2018-05-26] MEDS: morphine SULFATE IMMEDIATE RELEASE 30 MG TAB PO PRN (19:17)
[2018-05-26] MEDS: ATORVASTATIN CA 20 MG TABLET (FP) PO SCH (23:05)
[2018-05-27] MEDS: NYSTATIN 500,000 UNITS/5 ML SUSPENSION PO SCH ×4 (00:19→18:10)
[2018-05-27] MEDS: morphine SULFATE IMMEDIATE RELEASE 30 MG TAB PO PRN (06:19)
[2018-05-27] MEDS: INSULIN SLIDING SCALE (NOVOLOG) 1 VIAL SQ SCH ×4 (06:26→23:49)
[2018-05-27] MEDS: ALBUTEROL SO4 0.083% IH SOL 2.5 MG/3 ML VIAL.NEB. NEB SCH ×4 (07:25→20:48)
[2018-05-27] MEDS: ENOXAPARIN NA (PORCINE) 40 MG/0.4 ML DISP.SYRIN SQ SCH (10:13)
[2018-05-27] MEDS: LOSARTAN POTASSIUM 50 MG TABLET (FP) PO SCH (10:39)
[2018-05-27] MEDS: DOCUSATE SODIUM 100 MG CAPSULE (FP) PO SCH (10:39)
[2018-05-27] MEDS: FUROSEMIDE 40 MG TABLET (FP) PO SCH (10:39)
[2018-05-27] MEDS: predniSONE 10 MG TABLET (UD) PO SCH (10:39)
[2018-05-27] MEDS: GABAPENTIN 300 MG CAPSULE (FP) PO SCH ×2 (10:39→23:38)
[2018-05-27] MEDS: PANTOPRAZOLE 20 MG TABLET (FP) PO SCH (10:40)
[2018-05-27] MEDS: amLODIPine BESYLATE 10 MG TABLET (FP) PO SCH (10:40)
[2018-05-27] MEDS: ASPIRIN 81 MG CHEWABLE TABLETS PO SCH (10:40)
[2018-05-27] MEDS: CALCIUM 500MG/VIT-D 200 UNITS COMBO TABLET (FP) PO SCH (10:40)
[2018-05-27] MEDS: CLOPIDOGREL BISULFATE 75 MG TABLET (FP) PO SCH (10:40)
[2018-05-27] MEDS: BACITRACIN 15 GM TUBE TOPICAL OINTMENT TP SCH (10:41)
[2018-05-27] MEDS: NYSTATIN POWDER 100,000 UNITS/GM - 15 GM TOPICAL POWDER TP SCH (10:41)
[2018-05-27] MEDS: guaiFENesin/D-METHORPHAN HB 1 EACH TAB.ER.12H PO SCH ×2 (10:41→23:40)
[2018-05-27] MEDS: TIOTROPIUM BROMIDE 2.5 MCG (SPIRIVA) RESPIMAT INHALER IH SCH (10:42)
[2018-05-27] MEDS: morphine SO4 SUSTAINED ACTING 15 MG TABLET.SA PO SCH ×2 (12:44→23:38)
--- NOTE | 2018-05-27 16:04 | PN ---
Progress Note (short form) - Note Progress Note: developed increased congestion and hypoxia today Vital Signs Period Temp Pulse Resp BP Sys/Gottlieb Pulse Ox Last 24 Hr 97.8 F-98.9 F 59-73 18-20 117-157/63-80 S1S2 RRR lungs diffuse scattered rhonchi abd large ventral hernia soft, non-tender, +BS chr edema, stasis dermatitis no sign of acute cellulitis awake but lethargic stage 2 sacral decubitus present since admission-topical bacitracin and optiofoam morbidly obese right arm atrophied and contracted imp CAD HTN IDDM chr pain syndrome NIKHIL asthma worsening check cxr iv steroids nebulizers pulm f/up requested
[2018-05-27 17:13] VITALS: BMI 54.7
[2018-05-27] MEDS: methylPREDNISolone NA SUCC 40 MG/1 ML VIAL IVPUSH SCH ×2 (18:10→23:37)
[2018-05-27] MEDS: ATORVASTATIN CA 20 MG TABLET (FP) PO SCH (23:38)
[2018-05-28] MEDS: NYSTATIN 500,000 UNITS/5 ML SUSPENSION PO SCH ×4 (00:57→17:20)
[2018-05-28] MEDS: methylPREDNISolone NA SUCC 40 MG/1 ML VIAL IVPUSH SCH ×4 (02:57→22:14)
[2018-05-28] MEDS: INSULIN SLIDING SCALE (NOVOLOG) 1 VIAL SQ SCH ×4 (06:07→22:21)
[2018-05-28 08:25] LABS: ALBUMIN 2.5 g/dl (3.4-5.0); ALK PHOS 153 U/L (45-117); ANION GAP 6 MMOL/L (8-16); BASO % 0.6 % (0-2.0); BILIRUBIN,TOTAL 0.9 mg/dL (0.2-1); BLOOD UREA NITROGEN 38 mg/dL (7-18); CALCIUM 8.2 mg/dL (8.5-10.1); CHLORIDE 99 mmol/L (98-107); CO2 33 mmol/L (21-32); CREATININE 1.3 mg/dL (0.55-1.3); GLUCOSE,RANDOM 172 mg/dL (74-106); HEMATOCRIT 34.4 % (32.4-45.2); HEMOGLOBIN 11.6 GM/dL (10.7-15.3); LYMPH % 3.2 % (8-40); MCH 27.3 pg (25.7-33.7); MCHC 33.6 g/dl (32.0-36.0); MEAN PLT VOLUME 8.7 fl (7.5-11.1); MONO % 1.6 % (3.8-10.2); NEUT % 94.6 % (42.8-82.8); PLATELET COUNT 210 K/MM3 (134-434); POTASSIUM 4.6 mmol/L (3.5-5.1); RBC 4.25 M/mm3 (3.60-5.2); RDW 18.3 % (11.6-15.6); SGOT/AST 10 U/L (15-37); SGPT/ALT 38 U/L (13-61); SODIUM 137 mmol/L (136-145); TOT PROT 5.4 g/dl (6.4-8.2); WHITE BLOOD COUNT 9.2 K/mm3 (4.0-10.0)
[2018-05-28] MEDS: ALBUTEROL SO4 0.083% IH SOL 2.5 MG/3 ML VIAL.NEB. NEB SCH (08:56)
[2018-05-28] MEDS ORDERED: INSULIN (NOVOLOG) ASPART 100 UNITS/ML 10ML VIAL ONE (10:10)
[2018-05-28] MEDS ORDERED: PT OWN MED DRAWER 7, Y5N ONE ×2 (10:13→14:19)
[2018-05-28] MEDS: ASPIRIN 81 MG CHEWABLE TABLETS PO SCH (10:26)
[2018-05-28] MEDS: LOSARTAN POTASSIUM 50 MG TABLET (FP) PO SCH (10:26)
[2018-05-28] MEDS: CLOPIDOGREL BISULFATE 75 MG TABLET (FP) PO SCH (10:26)
[2018-05-28] MEDS: FUROSEMIDE 40 MG TABLET (FP) PO SCH (10:26)
[2018-05-28] MEDS: PANTOPRAZOLE 20 MG TABLET (FP) PO SCH (10:26)
[2018-05-28] MEDS: amLODIPine BESYLATE 10 MG TABLET (FP) PO SCH (10:26)
[2018-05-28] MEDS: DOCUSATE SODIUM 100 MG CAPSULE (FP) PO SCH (10:26)
[2018-05-28] MEDS: GABAPENTIN 300 MG CAPSULE (FP) PO SCH (10:26)
[2018-05-28] MEDS: CALCIUM 500MG/VIT-D 200 UNITS COMBO TABLET (FP) PO SCH (10:26)
[2018-05-28] MEDS: guaiFENesin/D-METHORPHAN HB 1 EACH TAB.ER.12H PO SCH (10:27)
[2018-05-28] MEDS: TIOTROPIUM BROMIDE 2.5 MCG (SPIRIVA) RESPIMAT INHALER IH SCH (10:28)
[2018-05-28] MEDS: BACITRACIN 15 GM TUBE TOPICAL OINTMENT TP SCH (10:28)
[2018-05-28] MEDS: morphine SO4 SUSTAINED ACTING 15 MG TABLET.SA PO SCH ×2 (10:29→22:14)
[2018-05-28] MEDS: ENOXAPARIN NA (PORCINE) 40 MG/0.4 ML DISP.SYRIN SQ SCH (10:31)
[2018-05-28] MEDS: NYSTATIN POWDER 100,000 UNITS/GM - 15 GM TOPICAL POWDER TP SCH (10:31)
[2018-05-28 11:26] LABS: ANISOCYTOSIS 1+; MACROCYTOSIS 0; PLATELET ESTIMATE NORMAL
--- NOTE | 2018-05-28 11:57 | CON.PULM ---
Consult Consult Specialty:: PULMONARY Referred by:: STEPHENIE Reason for Consultation:: COUGH - History of Present Illness Chief Complaint: COUGH History of Present Illness: 72 yo female recently admitted (DC 04/19/18) for hypercapnic resp failure, E coli bacteremia, NIKHIL and COPD requiring Bipap and IV antibiotics DC to [facility] for rehab (transferred back from [facility] ) pmh of R knee replacement requiring multiple revisions Pt also reportedly non compliant with medical treatment. Pt states she is on Ampicillin "for life" due to chronic knee infections. We have been asked to eval for acute onset of unrelenting cough. - History Source History Provided By: Patient, Medical Record Limitations to Obtaining History: Clinical Condition - Past Medical History SACK MAKER: No: Alzheimer's Cardio/Vascular: Yes: CAD (s/p cardiac stents, last cath in Mar 2014 showed nonobstructive disease), HTN, Hyperlipdemia Pulmonary: Yes: COPD Gastrointestinal: Yes: Constipation Renal/: Yes: Renal Inusuff ...: No Infectious Disease: Yes: MRSA (h/o MRSA several years ago) Psych: Yes: Anxiety, Panic Musculoskeletal: Yes: Osteoarthritis Endocrine: Yes: Diabetes Mellitus, Other (Morbid Obesity) - Past Surgical History Past Surgical History: Yes: Cholecystectomy, Hysterectomy, Joint Replacement (R knee as above) - Alcohol/Substance Use Hx Alcohol Use: No - Smoking History Smoking history: Former smoker Have you smoked in the past 12 months: No Aproximately how many cigarettes per day: 0 If you are a former smoker, when did you quit?: 15 years ago - Social History ADL: Family Assistance History of Recent Travel: No Home Medications - Allergies Allergies/Adverse Reactions: Allergies Allergy/AdvReac Type Severity Reaction Status Date / Time metoprolol Allergy Verified 04/13/18 07:23 metronidazole Allergy Verified 04/13/18 07:23 - Home Medications Home Medications: Ambulatory Orders Aspirin [ASA -] 81 mg PO DAILY 10/05/13 Calcium 500Mg/Vit-D 200 Units [Os-Jorge 500+D -] 2 tab PO DAILY tab 01/24/18 Docusate Sodium [Colace -] 300 mg PO DAILY 03/30/18 Guaifenesin [Robitussin -] 10 ml PO Q6H PRN cup 04/19/18 Insulin Sliding Scale [Novolog Vial Sliding Scale -] 1 vial SQ ACHS units 04/19 Pantoprazole Sodium [Protonix -] 20 mg PO DAILY tablet.ec 04/19/18 Amlodipine Besylate [Norvasc -] 10 mg PO DAILY #30 tablet 05/26/18 Ammonium Lactate Lotion [Lac-Hydrin 12] 1 applic TP DAILY PRN #1 bottle Bacitracin - [Bacitracin Topical Ointment -] 1 applic TP DAILY #1 tube 05/26/18 Clopidogrel Bisulfate [Plavix -] 75 mg PO DAILY #30 tablet 05/26/18 Furosemide [Lasix -] 40 mg PO DAILY #30 tablet 05/26/18 Gabapentin [Neurontin -] 300 mg PO BID #60 capsule 05/26/18 Guaifenesin Dm [Mucinex Dm -] 2 tablet PO BID tab.er.12h 05/26/18 Losartan Potassium [Cozaar -] 50 mg PO DAILY #30 tablet 05/26/18 Morphine *Immediate Release* [Msir -] 30 mg PO Q4H PRN #90 tab MDD 120mg Morphine *Sr* [Ms Contin -] 45 mg PO BID #60 tablet.sa MDD 90 mg 05/26/18 Nystatin Powder [Nystop Powder -] 1 applic TP DAILY #1 bottle 05/26/18 Prednisone [Deltasone] 20 mg PO DAILY #5 tablet 05/26/18 Simvastatin [Zocor -] 40 mg PO HS #30 tablet 05/26/18 Tiotropium [place] [Spiriva Respimat] 2 puff IH DAILY #1 inhaler 05/26/18 Family Disease History - Family Disease History Family History: Unable to Obtain Review of Systems - Review of Systems Cardiovascular: denies: Chest Pain Respiratory: reports: Cough, Exercise Intolerance, SOB on Exertion. denies: Hemoptysis Physical Exam Vital Sings: Vital Signs Temperature 98.2 F 05/28/18 10:06 Pulse Rate 73 05/28/18 10:06 Respiratory Rate 05/28/18 10:06 Blood Pressure 112/66 05/28/18 10:06 O2 Sat by Pulse Oximetry (%) 96 05/27/18 21:00 Constitutional: Yes: Anxious Eyes: Yes: EOM Intact HENT: Yes: Normocephalic Neck: Yes: Trachea Midline Cardiovascular: Yes: Regular Rate and Rhythm Respiratory: Yes: Diminished, Rhonchi Gastrointestinal: Yes: Abdomen, Obese Edema: LLE: 1+, RLE: 1+ Neurological: Yes: Alert Labs: CBC, BMP 05/28/18 06:40 05/28/18 06:40 rest reviewed Imaging - Results Chest X-ray: Report Reviewed, Image Reviewed Problem List - Problems (1) Cough Code(s): R05 - COUGH (2) Cellulitis Code(s): L03.90 - CELLULITIS, UNSPECIFIED Qualifiers: Site of cellulitis: extremity Site of cellulitis of extremity: lower extremity Laterality: unspecified laterality Qualified Code(s): L03.119 - Cellulitis of unspecified part of limb (3) Sacral decubitus ulcer, stage II Code(s): L89.152 - PRESSURE ULCER OF SACRAL REGION, STAGE 2 (4) Acute respiratory failure with hypoxia and hypercapnia Code(s): J96.01 - ACUTE RESPIRATORY FAILURE WITH HYPOXIA; J96.02 - ACUTE RESPIRATORY FAILURE WITH HYPERCAPNIA (5) CAD (coronary artery disease) Code(s): I25.10 - ATHSCL HEART DISEASE OF [place] CORONARY ARTERY W/O ANG PCTRS Qualifiers: Coronary Disease-Associated Artery/Lesion type: [place] artery Associated angina: without angina (6) CHF exacerbation Code(s): I50.9 - HEART FAILURE, UNSPECIFIED Qualifiers: Heart failure type: unspecified Qualified Code(s): I50.9 - Heart failure, unspecified (7) COPD exacerbation Code(s): J44.1 - CHRONIC OBSTRUCTIVE PULMONARY DISEASE W (ACUTE) EXACERBATION Assessment/Plan Would be concerned for chronic aspiration in this debilitated patient causing cough COPD exacerbation is more likely Agree with iv medrol Have ordered ICS/LABA/Duoneb/cough suppressant Will Follow Oswaldo Richards MD
[2018-05-28] MEDS: ALBUTEROL SO4 2.5/IPRATROPIUM 0.5 INH SOL 3 ML VIAL.NEB. NEB SCH ×3 (12:37→21:40)
[2018-05-28] MEDS: DEXTROMETHORPHAN/PROMETHAZINE 15 MG/6.25 MG/5 ML SYRUP PO PRN (14:32)
[2018-05-28] MEDS: BUDESONIDE/FORMETEROL FUMARATE 80/4.5 mcg INHALER IH SCH ×2 (14:33→22:17)
--- NOTE | 2018-05-28 19:24 | PN ---
Progress Note (short form) - Note Progress Note: she is better and has less cough no fever or chills no diarrhea seen by pulmonary Vital Signs Period Temp Pulse Resp BP Sys/Gottlieb Pulse Ox Last 24 Hr 97.9 F-99.0 F 59-79 18-20 112-132/56-78 93-96 Heent nad neck supple lungs coarse bs bilateral and mild wheezing abd soft and non tender neur alert and awake Laboratory Results - last 24 hr 05/27/18 05/28/18 05/28/18 23:45 06:02 06:40 WBC 9.2 RBC 4.25 Hgb 11.6 Hct 34.4 MCV 81.0 MCH 27.3 MCHC 33.6 RDW 18.3 H Plt Count 210 MPV 8.7 Absolute Neuts (auto) 8.7 H Neutrophils % 94.6 H Neutrophils % (Manual) 97.0 H Band Neutrophils % 0.0 Lymphocytes % 3.2 L D Lymphocytes % (Manual) 0.0 L Monocytes % 1.6 L Monocytes % (Manual) 2 L Eosinophils % 0.0 D Eosinophils % (Manual) 0.0 D Basophils % 0.6 Basophils % (Manual) 0.0 Myelocytes % (Man) 1 Promyelocytes % (Man) 0 Blast Cells % (Manual) 0 Nucleated RBC % 0 Metamyelocytes 0 Hypochromia 0 Platelet Estimate Normal Polychromasia 0 Poikilocytosis 1+ Basophilic Stippling 1+ Anisocytosis 1+ Microcytosis 1+ Macrocytosis 0 Sodium Potassium Chloride Carbon Dioxide Anion Gap BUN Creatinine Creat Clearance w eGFR POC Glucometer 257 179 Random Glucose Calcium Total Bilirubin AST ALT Alkaline Phosphatase Total Protein Albumin 05/28/18 05/28/18 05/28/18 06:40 11:13 17:23 WBC RBC Hgb Hct MCV MCH MCHC RDW Plt Count MPV Absolute Neuts (auto) Neutrophils % Neutrophils % (Manual) Band Neutrophils % Lymphocytes % Lymphocytes % (Manual) Monocytes % Monocytes % (Manual) Eosinophils % Eosinophils % (Manual) Basophils % Basophils % (Manual) Myelocytes % (Man) Promyelocytes % (Man) Blast Cells % (Manual) Nucleated RBC % Metamyelocytes Hypochromia Platelet Estimate Polychromasia Poikilocytosis Basophilic Stippling Anisocytosis Microcytosis Macrocytosis Sodium 137 Potassium 4.6 Chloride 99 Carbon Dioxide 33 H Anion Gap 6 L BUN 38 H Creatinine 1.3 Creat Clearance w eGFR 40.38 POC Glucometer 295 193 Random Glucose 172 H Calcium 8.2 L Total Bilirubin 0.9 AST 10 L ALT 38 Alkaline Phosphatase 153 H Total Protein 5.4 L Albumin 2.5 L ASSESSMENT CAD HTN IDDM chr pain syndrome NIKHIL asthma worsening CHEST X RAYS SHOWS NO PNEMUNIA iv steroids nebulizers laba and ics as well Current Medications Albuterol/Ipratropium (Duoneb -) 1 amp NEB RQID [facility] Last Admin: 05/28/18 15:45 Dose: 1 amp Amlodipine Besylate (Norvasc -) 10 mg PO DAILY [facility] Last Admin: 05/28/18 10:26 Dose: 10 mg Aspirin (Asa -) 81 mg PO DAILY [facility] Last Admin: 05/28/18 10:26 Dose: 81 mg Atorvastatin Calcium (Lipitor -) 20 mg PO HS [facility] Last Admin: 05/27/18 23:38 Dose: 20 mg Bacitracin (Bacitracin -) 1 applic TP DAILY [facility] Last Admin: 05/28/18 10:28 Dose: 1 applic Budesonide/Formoterol Fumarate (Symbicort 80/4.5mcg -) 2 puff IH BID [facility] Last Admin: 05/28/18 14:33 Dose: 2 puff Calcium Carbonate/Cholecalciferol (Os-Jorge 500+D -) 2 tab PO DAILY [facility] Last Admin: 05/28/18 10:26 Dose: 2 tab Clopidogrel Bisulfate (Plavix -) 75 mg PO DAILY [facility] Last Admin: 05/28/18 10:26 Dose: 75 mg Docusate Sodium (Colace -) 300 mg PO DAILY [facility] Last Admin: 05/28/18 10:26 Dose: 300 mg Enoxaparin Sodium (Lovenox -) 40 mg SQ DAILY [facility] Last Admin: 05/28/18 10:31 Dose: 40 mg Furosemide (Lasix -) 40 mg PO DAILY [facility] Last Admin: 05/28/18 10:26 Dose: 40 mg Insulin Aspart (Novolog Vial Sliding Scale -) 1 vial SQ ACHS [facility]; Protocol Last Admin: 05/28/18 17:26 Dose: 2 units Lactic Acid (Lac-Hydrin 12) 1 applic TP DAILY PRN PRN Reason: xerosis Last Admin: 05/23/18 10:54 Dose: 1 applic Losartan Potassium (Cozaar -) 50 mg PO DAILY [facility] Last Admin: 05/28/18 10:26 Dose: 50 mg Methylprednisolone Sodium Succinate (Solu-Medrol -) 40 mg IVPUSH Q6H-IV EFRAIN Last Admin: 05/28/18 14:32 Dose: 40 mg Morphine Sulfate (Ms Contin -) 45 mg PO BID [facility] Last Admin: 05/28/18 10:29 Dose: 45 mg Morphine Sulfate (Msir -) 30 mg PO Q4H PRN PRN Reason: PAIN SCALE 6-10 Last Admin: 05/27/18 06:19 Dose: 30 mg Nystatin (Nystop Powder -) 1 applic TP DAILY [facility] Last Admin: 05/28/18 10:31 Dose: 1 applic Nystatin (Nystatin Oral Suspension -) 500,000 units PO Q6HPO [facility] Last Admin: 05/28/18 17:20 Dose: 500,000 units Pantoprazole Sodium (Protonix -) 20 mg PO DAILY [facility] Last Admin: 05/28/18 10:26 Dose: 20 mg Promethazine HCl/Dextromethorphan (Phenergan-Dm Syrup -) 5 ml PO Q4H PRN PRN Reason: COUGH Last Admin: 05/28/18 14:32 Dose: 5 ml
[2018-05-28] MEDS: ATORVASTATIN CA 20 MG TABLET (FP) PO SCH (22:14)
[2018-05-29] MEDS: methylPREDNISolone NA SUCC 40 MG/1 ML VIAL IVPUSH SCH ×3 (03:05→17:44)
[2018-05-29] MEDS: NYSTATIN 500,000 UNITS/5 ML SUSPENSION PO SCH ×4 (03:05→17:44)
[2018-05-29] MEDS: INSULIN SLIDING SCALE (NOVOLOG) 1 VIAL SQ SCH ×4 (07:14→22:39)
[2018-05-29] MEDS: ALBUTEROL SO4 2.5/IPRATROPIUM 0.5 INH SOL 3 ML VIAL.NEB. NEB SCH ×4 (07:33→20:32)
[2018-05-29] MEDS ORDERED: PT OWN MED DRAWER 7, Y5N ONE (10:31)
[2018-05-29] MEDS: amLODIPine BESYLATE 10 MG TABLET (FP) PO SCH (10:37)
[2018-05-29] MEDS: CLOPIDOGREL BISULFATE 75 MG TABLET (FP) PO SCH (10:37)
[2018-05-29] MEDS: BACITRACIN 15 GM TUBE TOPICAL OINTMENT TP SCH (10:37)
[2018-05-29] MEDS: FUROSEMIDE 40 MG TABLET (FP) PO SCH (10:37)
[2018-05-29] MEDS: PANTOPRAZOLE 20 MG TABLET (FP) PO SCH (10:37)
[2018-05-29] MEDS: ASPIRIN 81 MG CHEWABLE TABLETS PO SCH (10:37)
[2018-05-29] MEDS: LOSARTAN POTASSIUM 50 MG TABLET (FP) PO SCH (10:37)
[2018-05-29] MEDS: CALCIUM 500MG/VIT-D 200 UNITS COMBO TABLET (FP) PO SCH (10:37)
[2018-05-29] MEDS: ENOXAPARIN NA (PORCINE) 40 MG/0.4 ML DISP.SYRIN SQ SCH (10:38)
[2018-05-29] MEDS: DOCUSATE SODIUM 100 MG CAPSULE (FP) PO SCH (10:38)
[2018-05-29] MEDS: morphine SO4 SUSTAINED ACTING 15 MG TABLET.SA PO SCH ×2 (10:39→22:32)
[2018-05-29] MEDS: DEXTROMETHORPHAN/PROMETHAZINE 15 MG/6.25 MG/5 ML SYRUP PO PRN (10:40)
[2018-05-29] MEDS: NYSTATIN POWDER 100,000 UNITS/GM - 15 GM TOPICAL POWDER TP SCH (10:42)
[2018-05-29] MEDS: BUDESONIDE/FORMETEROL FUMARATE 80/4.5 mcg INHALER IH SCH ×2 (10:42→22:41)
--- NOTE | 2018-05-29 12:15 | PN ---
Progress Note (short form) - Note Progress Note: PULMONARY Constitutional: Yes: Anxious Eyes: Yes: EOM Intact HENT: Yes: Normocephalic Neck: Yes: Trachea Midline Cardiovascular: Yes: Regular Rate and Rhythm Respiratory: Yes: Diminished, Rhonchi Gastrointestinal: Yes: Abdomen, Obese Edema: LLE: 1+, RLE: 1+ Neurological: Yes: Alert Labs: noted Chest X-ray: Report Reviewed, Image Reviewed - Problems (1) Cough Code(s): R05 - COUGH (2) Cellulitis Code(s): L03.90 - CELLULITIS, UNSPECIFIED Qualifiers: Site of cellulitis: extremity Site of cellulitis of extremity: lower extremity Laterality: unspecified laterality Qualified Code(s): L03.119 - Cellulitis of unspecified part of limb (3) Sacral decubitus ulcer, stage II Code(s): L89.152 - PRESSURE ULCER OF SACRAL REGION, STAGE 2 (4) Acute respiratory failure with hypoxia and hypercapnia Code(s): J96.01 - ACUTE RESPIRATORY FAILURE WITH HYPOXIA; J96.02 - ACUTE RESPIRATORY FAILURE WITH HYPERCAPNIA (5) CAD (coronary artery disease) Code(s): I25.10 - ATHSCL HEART DISEASE OF [place] CORONARY ARTERY W/O ANG PCTRS Qualifiers: Coronary Disease-Associated Artery/Lesion type: [place] artery Associated angina: without angina (6) CHF exacerbation Code(s): I50.9 - HEART FAILURE, UNSPECIFIED Qualifiers: Heart failure type: unspecified Qualified Code(s): I50.9 - Heart failure, unspecified (7) COPD exacerbation Code(s): J44.1 - CHRONIC OBSTRUCTIVE PULMONARY DISEASE W (ACUTE) EXACERBATION Assessment/Plan Concerned for chronic aspiration in this debilitated patient causing cough COPD exacerbation is more likely. Multiple co-morbid conditions IV medrol to taper ICS/LABA/Duoneb/cough suppressant Need to avoid oversedation in view of high doses of opiates Will Follow Oswaldo Richards MD Problem List - Problems (1) Cough Code(s): R05 - COUGH (2) Cellulitis Code(s): L03.90 - CELLULITIS, UNSPECIFIED Qualifiers: Site of cellulitis: extremity Site of cellulitis of extremity: lower extremity Laterality: unspecified laterality Qualified Code(s): L03.119 - Cellulitis of unspecified part of limb (3) Sacral decubitus ulcer, stage II Code(s): L89.152 - PRESSURE ULCER OF SACRAL REGION, STAGE 2 (4) Acute respiratory failure with hypoxia and hypercapnia Code(s): J96.01 - ACUTE RESPIRATORY FAILURE WITH HYPOXIA; J96.02 - ACUTE RESPIRATORY FAILURE WITH HYPERCAPNIA (5) CAD (coronary artery disease) Code(s): I25.10 - ATHSCL HEART DISEASE OF [place] CORONARY ARTERY W/O ANG PCTRS Qualifiers: Coronary Disease-Associated Artery/Lesion type: [place] artery Associated angina: without angina (6) CHF exacerbation Code(s): I50.9 - HEART FAILURE, UNSPECIFIED Qualifiers: Heart failure type: unspecified Qualified Code(s): I50.9 - Heart failure, unspecified (7) COPD exacerbation Code(s): J44.1 - CHRONIC OBSTRUCTIVE PULMONARY DISEASE W (ACUTE) EXACERBATION
[2018-05-29] MEDS ORDERED: INSULIN (NOVOLOG) ASPART 100 UNITS/ML 10ML VIAL ONE (12:46)
--- NOTE | 2018-05-29 21:58 | PN ---
Progress Note (short form) - Note Progress Note: she is better and has less cough no fever or chills no diarrhea seen by pulmonary\ Vital Signs Period Temp Pulse Resp BP Sys/Gottlieb Pulse Ox Last 24 Hr 97.7 F-98.5 F 51-68 17-22 140-176/62-70 98-100 neck supple\ lungs coarse bs bilateral and mild wheezing abd soft and non tender neur alert and awake Laboratory Results - last 24 hr CBC, BMP 05/28/18 06:40 05/28/18 06:40 SSESSMENT CAD HTN IDDM chr pain syndrome NIKHIL asthma worsening CHEST X RAYS SHOWS NO PNEMUNIA iv steroids nebulizers laba and ics as well Current Medications Albuterol/Ipratropium (Duoneb -) 1 amp NEB RQID [facility] Last Admin: 05/28/18 15:45 Dose: 1 amp Amlodipine Besylate (Norvasc -) 10 mg PO DAILY [facility] Last Admin: 05/28/18 10:26 Dose: 10 mg Aspirin (Asa -) 81 mg PO DAILY [facility] Last Admin: 05/28/18 10:26 Dose: 81 mg Atorvastatin Calcium (Lipitor -) 20 mg PO HS [facility] Last Admin: 05/27/18 23:38 Dose: 20 mg Bacitracin (Bacitracin -) 1 applic TP DAILY [facility] Last Admin: 05/28/18 10:28 Dose: 1 applic Budesonide/Formoterol Fumarate (Symbicort 80/4.5mcg -) 2 puff IH BID [facility] Last Admin: 05/28/18 14:33 Dose: 2 puff Calcium Carbonate/Cholecalciferol (Os-Jorge 500+D -) 2 tab PO DAILY [facility] Last Admin: 05/28/18 10:26 Dose: 2 tab Clopidogrel Bisulfate (Plavix -) 75 mg PO DAILY [facility] Last Admin: 05/28/18 10:26 Dose: 75 mg Docusate Sodium (Colace -) 300 mg PO DAILY [facility] Last Admin: 05/28/18 10:26 Dose: 300 mg Enoxaparin Sodium (Lovenox -) 40 mg SQ DAILY [facility] Last Admin: 05/28/18 10:31 Dose: 40 mg Furosemide (Lasix -) 40 mg PO DAILY [facility] Last Admin: 05/28/18 10:26 Dose: 40 mg Insulin Aspart (Novolog Vial Sliding Scale -) 1 vial SQ ACHS [facility]; Protocol Last Admin: 05/28/18 17:26 Dose: 2 units Lactic Acid (Lac-Hydrin 12) 1 applic TP DAILY PRN PRN Reason: xerosis Last Admin: 05/23/18 10:54 Dose: 1 applic Losartan Potassium (Cozaar -) 50 mg PO DAILY [facility] Last Admin: 05/28/18 10:26 Dose: 50 mg Methylprednisolone Sodium Succinate (Solu-Medrol -) 40 mg IVPUSH Q6H-IV EFRAIN Last Admin: 05/28/18 14:32 Dose: 40 mg Morphine Sulfate (Ms Contin -) 45 mg PO BID [facility] Last Admin: 05/28/18 10:29 Dose: 45 mg Morphine Sulfate (Msir -) 30 mg PO Q4H PRN PRN Reason: PAIN SCALE 6-10 Last Admin: 05/27/18 06:19 Dose: 30 mg Nystatin (Nystop Powder -) 1 applic TP DAILY [facility] Last Admin: 05/28/18 10:31 Dose: 1 applic Nystatin (Nystatin Oral Suspension -) 500,000 units PO Q6HPO [facility] Last Admin: 05/28/18 17:20 Dose: 500,000 units Pantoprazole Sodium (Protonix -) 20 mg PO DAILY [facility] Last Admin: 05/28/18 10:26 Dose: 20 mg Promethazine HCl/Dextromethorphan (Phenergan-Dm Syrup -) 5 ml PO Q4H PRN PRN Reason: COUGH Last Admin: 05/28/18 14:32 Dose: 5 ml
[2018-05-29] MEDS: ATORVASTATIN CA 20 MG TABLET (FP) PO SCH (22:32)
[2018-05-30] MEDS: methylPREDNISolone NA SUCC 40 MG/1 ML VIAL IVPUSH SCH ×3 (02:30→21:27)
[2018-05-30] MEDS: NYSTATIN 500,000 UNITS/5 ML SUSPENSION PO SCH ×4 (02:33→17:24)
[2018-05-30] MEDS: ALBUTEROL SO4 2.5/IPRATROPIUM 0.5 INH SOL 3 ML VIAL.NEB. NEB SCH ×4 (07:12→20:06)
[2018-05-30] MEDS: INSULIN SLIDING SCALE (NOVOLOG) 1 VIAL SQ SCH ×4 (07:54→21:24)
--- NOTE | 2018-05-30 08:39 | PN ---
Progress Note (short form) - Note Progress Note: CBC, BMP 05/28/18 06:40 05/28/18 06:40 S1S2 RRR lungs diffuse scattered rhonchi, poor inspiratory effort abd large ventral hernia soft, non-tender, +BS chr edema, stasis dermatitis no sign of acute cellulitis awake but lethargic stage 2 sacral decubitus present since admission-topical bacitracin and optiofoam morbidly obese right arm atrophied and contracted imp CAD HTN IDDM chr pain syndrome NIKHIL asthma / COPD exacerbation hypoventilation chest PT OOB as much as possible incentive spirometry iv steroids taper nebulizers pulm f/up appreciated
[2018-05-30] MEDS ORDERED: PT OWN MED DRAWER 7, Y5N ONE ×2 (09:44→20:57)
[2018-05-30] MEDS: ASPIRIN 81 MG CHEWABLE TABLETS PO SCH (10:01)
[2018-05-30] MEDS: CALCIUM 500MG/VIT-D 200 UNITS COMBO TABLET (FP) PO SCH (10:01)
[2018-05-30] MEDS: FUROSEMIDE 40 MG TABLET (FP) PO SCH (10:01)
[2018-05-30] MEDS: morphine SO4 SUSTAINED ACTING 15 MG TABLET.SA PO SCH ×2 (10:01→21:19)
[2018-05-30] MEDS: amLODIPine BESYLATE 10 MG TABLET (FP) PO SCH (10:01)
[2018-05-30] MEDS: DOCUSATE SODIUM 100 MG CAPSULE (FP) PO SCH (10:02)
[2018-05-30] MEDS: CLOPIDOGREL BISULFATE 75 MG TABLET (FP) PO SCH (10:02)
[2018-05-30] MEDS: ENOXAPARIN NA (PORCINE) 40 MG/0.4 ML DISP.SYRIN SQ SCH (10:02)
[2018-05-30] MEDS: PANTOPRAZOLE 20 MG TABLET (FP) PO SCH (10:02)
[2018-05-30] MEDS: LOSARTAN POTASSIUM 50 MG TABLET (FP) PO SCH (10:02)
[2018-05-30] MEDS: BUDESONIDE/FORMETEROL FUMARATE 80/4.5 mcg INHALER IH SCH ×2 (10:03→21:27)
[2018-05-30] MEDS: BACITRACIN 15 GM TUBE TOPICAL OINTMENT TP SCH (10:04)
[2018-05-30] MEDS: NYSTATIN POWDER 100,000 UNITS/GM - 15 GM TOPICAL POWDER TP SCH (10:04)
--- NOTE | 2018-05-30 10:52 | PN ---
Progress Note (short form) - Note Progress Note: PULMONARY Breathing slightly better today but not at baseline. Occasional nonproductive cough and wheezing. Vital Signs Period Temp Pulse Resp BP Sys/Gottlieb Pulse Ox Last 24 Hr 98.4 F-98.6 F 54-68 17-22 123-147/64-64 100 Gen: NAD at rest Heart: RRR Lung: bilateral scattered rhonchi, wheezes Abd: soft, nontender Ext: + edema CBC, BMP 05/28/18 06:40 05/28/18 06:40 Active Medications Albuterol/Ipratropium (Duoneb -) 1 amp NEB RQID [facility] Last Admin: 05/30/18 07:12 Dose: 1 amp Amlodipine Besylate (Norvasc -) 10 mg PO DAILY [facility] Last Admin: 05/30/18 10:01 Dose: 10 mg Aspirin (Asa -) 81 mg PO DAILY [facility] Last Admin: 05/30/18 10:01 Dose: 81 mg Atorvastatin Calcium (Lipitor -) 20 mg PO HS [facility] Last Admin: 05/29/18 22:32 Dose: 20 mg Bacitracin (Bacitracin -) 1 applic TP DAILY [facility] Last Admin: 05/30/18 10:04 Dose: 1 applic Budesonide/Formoterol Fumarate (Symbicort 80/4.5mcg -) 2 puff IH BID [facility] Last Admin: 05/30/18 10:03 Dose: 2 puff Calcium Carbonate/Cholecalciferol (Os-Jorge 500+D -) 2 tab PO DAILY [facility] Last Admin: 05/30/18 10:01 Dose: 2 tab Clopidogrel Bisulfate (Plavix -) 75 mg PO DAILY [facility] Last Admin: 05/30/18 10:02 Dose: 75 mg Docusate Sodium (Colace -) 300 mg PO DAILY [facility] Last Admin: 05/30/18 10:02 Dose: Not Given Enoxaparin Sodium (Lovenox -) 40 mg SQ DAILY [facility] Last Admin: 05/30/18 10:02 Dose: 40 mg Furosemide (Lasix -) 40 mg PO DAILY [facility] Last Admin: 05/30/18 10:01 Dose: 40 mg Insulin Aspart (Novolog Vial Sliding Scale -) 1 vial SQ [facility]; Protocol Last Admin: 05/30/18 07:54 Dose: Not Given Lactic Acid (Lac-Hydrin 12) 1 applic TP DAILY PRN PRN Reason: xerosis Last Admin: 05/23/18 10:54 Dose: 1 applic Losartan Potassium (Cozaar -) 50 mg PO DAILY [facility] Last Admin: 05/30/18 10:02 Dose: 50 mg Methylprednisolone Sodium Succinate (Solu-Medrol -) 40 mg IVPUSH Q12H [facility] Last Admin: 05/30/18 10:17 Dose: 40 mg Morphine Sulfate (Ms Contin -) 45 mg PO BID [facility] Last Admin: 05/30/18 10:01 Dose: 45 mg Morphine Sulfate (Msir -) 30 mg PO Q4H PRN PRN Reason: PAIN SCALE 6-10 Last Admin: 05/27/18 06:19 Dose: 30 mg Nystatin (Nystop Powder -) 1 applic TP DAILY [facility] Last Admin: 05/30/18 10:04 Dose: 1 applic Nystatin (Nystatin Oral Suspension -) 500,000 units PO Q6HPO [facility] Last Admin: 05/30/18 05:50 Dose: 500,000 units Pantoprazole Sodium (Protonix -) 20 mg PO DAILY [facility] Last Admin: 05/30/18 10:02 Dose: 20 mg Promethazine HCl/Dextromethorphan (Phenergan-Dm Syrup -) 5 ml PO Q4H PRN PRN Reason: COUGH Last Admin: 05/29/18 10:40 Dose: 5 ml A/P Acute COPD Exacerbation CAD Morbid Obesity NIKHIL/OHS HTN DM - continue medrol at current dose - can likely change steroids to PO in AM if continues to improve - inhaled bronchodilators - O2 to keep SpO2 >90% - DVT prophylaxis
[2018-05-30] MEDS ORDERED: INSULIN (NOVOLOG) ASPART 100 UNITS/ML 10ML VIAL ONE (11:58)
[2018-05-30] MEDS: ATORVASTATIN CA 20 MG TABLET (FP) PO SCH (21:21)
[2018-05-31] MEDS: NYSTATIN 500,000 UNITS/5 ML SUSPENSION PO SCH ×4 (00:35→17:17)
[2018-05-31] MEDS: ALBUTEROL SO4 2.5/IPRATROPIUM 0.5 INH SOL 3 ML VIAL.NEB. NEB SCH ×4 (05:00→20:15)
[2018-05-31] MEDS: INSULIN SLIDING SCALE (NOVOLOG) 1 VIAL SQ SCH ×4 (06:39→22:08)
--- NOTE | 2018-05-31 08:25 | PN ---
Progress Note (short form) - Note Progress Note: Vital Signs Period Temp Pulse Resp BP Sys/Gottlieb Pulse Ox Last 24 Hr 97.8 F-98.6 F 56-73 19-20 133-154/63-79 94-97 S1S2 RRR lungs diffuse scattered rhonchi clears up after deep cough abd large ventral hernia soft, non-tender, +BS chr edema, stasis dermatitis no sign of acute cellulitis awake but lethargic stage 2 sacral decubitus present since admission-topical bacitracin and optiofoam morbidly obese right arm atrophied and contracted imp CAD HTN IDDM chr pain syndrome NIKHIL asthma / COPD exacerbation hypoventilation chest PT OOB as much as possible incentive spirometry convert to po steroids today resp.eval for home O2 nebulizers pulm f/up appreciated dc planning in am still refuses to consider SNF
[2018-05-31] MEDS ORDERED: PT OWN MED DRAWER 7, Y5N ONE (10:20)
--- NOTE | 2018-05-31 10:36 | PN ---
Progress Note (short form) - Note Progress Note: PULMONARY Breathing continues to improve. Less cough and wheezing. Vital Signs Period Temp Pulse Resp BP Sys/Gottlieb Pulse Ox Last 24 Hr 97.8 F-98.6 F 59-73 19-20 133-154/63-79 94 Intake & Output 05/28/18 05/29/18 05/30/18 05/31/18 23:59 23:59 23:59 23:59 Intake Total 680 136 0264 Output Total 1200 800 Balance 320 -650 480 Weight 137.484 kg 133.356 kg 137.529 kg Gen: NAD at rest Heart: RRR Lung: scattered rhonchi, wheezes Abd: soft, nontender Ext: + edema CBC, BMP 05/28/18 06:40 05/28/18 06:40 Active Medications Albuterol/Ipratropium (Duoneb -) 1 amp NEB RQID [facility] Last Admin: 05/31/18 08:14 Dose: 1 amp Amlodipine Besylate (Norvasc -) 10 mg PO DAILY [facility] Last Admin: 05/30/18 10:01 Dose: 10 mg Aspirin (Asa -) 81 mg PO DAILY [facility] Last Admin: 05/30/18 10:01 Dose: 81 mg Atorvastatin Calcium (Lipitor -) 20 mg PO HS [facility] Last Admin: 05/30/18 21:21 Dose: 20 mg Bacitracin (Bacitracin -) 1 applic TP DAILY [facility] Last Admin: 05/30/18 10:04 Dose: 1 applic Budesonide/Formoterol Fumarate (Symbicort 80/4.5mcg -) 2 puff IH BID [facility] Last Admin: 05/30/18 21:27 Dose: 2 puff Calcium Carbonate/Cholecalciferol (Os-Jorge 500+D -) 2 tab PO DAILY [facility] Last Admin: 05/30/18 10:01 Dose: 2 tab Clopidogrel Bisulfate (Plavix -) 75 mg PO DAILY [facility] Last Admin: 05/30/18 10:02 Dose: 75 mg Docusate Sodium (Colace -) 300 mg PO DAILY [facility] Last Admin: 05/30/18 10:02 Dose: Not Given Enoxaparin Sodium (Lovenox -) 40 mg SQ DAILY [facility] Last Admin: 05/30/18 10:02 Dose: 40 mg Furosemide (Lasix -) 40 mg PO DAILY [facility] Last Admin: 05/30/18 10:01 Dose: 40 mg Insulin Aspart (Novolog Vial Sliding Scale -) 1 vial SQ ACHS [facility]; Protocol Last Admin: 05/31/18 06:39 Dose: Not Given Lactic Acid (Lac-Hydrin 12) 1 applic TP DAILY PRN PRN Reason: xerosis Last Admin: 05/23/18 10:54 Dose: 1 applic Losartan Potassium (Cozaar -) 50 mg PO DAILY [facility] Last Admin: 05/30/18 10:02 Dose: 50 mg Morphine Sulfate (Ms Contin -) 45 mg PO BID [facility] Last Admin: 05/30/18 21:19 Dose: 45 mg Morphine Sulfate (Msir -) 30 mg PO Q4H PRN PRN Reason: PAIN SCALE 6-10 Last Admin: 05/27/18 06:19 Dose: 30 mg Nystatin (Nystop Powder -) 1 applic TP DAILY [facility] Last Admin: 05/30/18 10:04 Dose: 1 applic Nystatin (Nystatin Oral Suspension -) 500,000 units PO Q6HPO [facility] Last Admin: 05/31/18 06:35 Dose: 500,000 units Pantoprazole Sodium (Protonix -) 20 mg PO DAILY [facility] Last Admin: 05/30/18 10:02 Dose: 20 mg Prednisone (Deltasone -) 40 mg PO DAILY [facility] Promethazine HCl/Dextromethorphan (Phenergan-Dm Syrup -) 5 ml PO Q4H PRN PRN Reason: COUGH Last Admin: 05/29/18 10:40 Dose: 5 ml A/P Acute COPD Exacerbation CAD Morbid Obesity NIKHIL/OHS HTN DM - agree with prednisone taper - inhaled bronchodilators - O2 to keep SpO2 >90% - rehab/PT - DVT prophylaxis
[2018-05-31] MEDS: PANTOPRAZOLE 20 MG TABLET (FP) PO SCH (11:29)
[2018-05-31] MEDS: predniSONE 20 MG TABLET (UD) PO SCH (11:29)
[2018-05-31] MEDS: LOSARTAN POTASSIUM 50 MG TABLET (FP) PO SCH (11:29)
[2018-05-31] MEDS: CALCIUM 500MG/VIT-D 200 UNITS COMBO TABLET (FP) PO SCH (11:30)
[2018-05-31] MEDS: FUROSEMIDE 40 MG TABLET (FP) PO SCH (11:30)
[2018-05-31] MEDS: amLODIPine BESYLATE 10 MG TABLET (FP) PO SCH (11:30)
[2018-05-31] MEDS: ENOXAPARIN NA (PORCINE) 40 MG/0.4 ML DISP.SYRIN SQ SCH (11:30)
[2018-05-31] MEDS: DOCUSATE SODIUM 100 MG CAPSULE (FP) PO SCH (11:30)
[2018-05-31] MEDS: ASPIRIN 81 MG CHEWABLE TABLETS PO SCH (11:30)
[2018-05-31] MEDS: CLOPIDOGREL BISULFATE 75 MG TABLET (FP) PO SCH (11:31)
[2018-05-31] MEDS: morphine SO4 SUSTAINED ACTING 15 MG TABLET.SA PO SCH ×2 (11:31→23:09)
[2018-05-31] MEDS: BUDESONIDE/FORMETEROL FUMARATE 80/4.5 mcg INHALER IH SCH ×2 (11:42→23:06)
[2018-05-31] MEDS: NYSTATIN POWDER 100,000 UNITS/GM - 15 GM TOPICAL POWDER TP SCH (11:43)
[2018-05-31] MEDS: BACITRACIN 15 GM TUBE TOPICAL OINTMENT TP SCH (12:49)
[2018-05-31] MEDS ORDERED: ONDANSETRON 4 MG TABLET PO PRN (13:35)
[2018-05-31] MEDS: morphine SULFATE IMMEDIATE RELEASE 30 MG TAB PO PRN ×2 (16:26→20:13)
[2018-05-31] MEDS: ATORVASTATIN CA 20 MG TABLET (FP) PO SCH (23:06)
[2018-06-01] MEDS: NYSTATIN 500,000 UNITS/5 ML SUSPENSION PO SCH ×3 (00:07→12:30)
[2018-06-01] MEDS: morphine SULFATE IMMEDIATE RELEASE 30 MG TAB PO PRN (03:19)
[2018-06-01] MEDS: INSULIN SLIDING SCALE (NOVOLOG) 1 VIAL SQ SCH ×2 (06:55→12:04)
[2018-06-01] MEDS: ALBUTEROL SO4 2.5/IPRATROPIUM 0.5 INH SOL 3 ML VIAL.NEB. NEB SCH (09:39)
[2018-06-01] MEDS: morphine SO4 SUSTAINED ACTING 15 MG TABLET.SA PO SCH (09:44)
[2018-06-01] MEDS: amLODIPine BESYLATE 10 MG TABLET (FP) PO SCH (09:45)
[2018-06-01] MEDS: predniSONE 20 MG TABLET (UD) PO SCH (09:45)
[2018-06-01] MEDS: ASPIRIN 81 MG CHEWABLE TABLETS PO SCH (09:45)
[2018-06-01] MEDS: LOSARTAN POTASSIUM 50 MG TABLET (FP) PO SCH (09:45)
[2018-06-01] MEDS: CLOPIDOGREL BISULFATE 75 MG TABLET (FP) PO SCH (09:45)
[2018-06-01] MEDS: CALCIUM 500MG/VIT-D 200 UNITS COMBO TABLET (FP) PO SCH (09:45)
[2018-06-01] MEDS: NYSTATIN POWDER 100,000 UNITS/GM - 15 GM TOPICAL POWDER TP SCH (09:46)
[2018-06-01] MEDS: PANTOPRAZOLE 20 MG TABLET (FP) PO SCH (09:46)
[2018-06-01] MEDS: FUROSEMIDE 40 MG TABLET (FP) PO SCH (09:46)
[2018-06-01] MEDS: ENOXAPARIN NA (PORCINE) 40 MG/0.4 ML DISP.SYRIN SQ SCH (09:46)
[2018-06-01] MEDS: BACITRACIN 15 GM TUBE TOPICAL OINTMENT TP SCH (09:47)
[2018-06-01] MEDS: BUDESONIDE/FORMETEROL FUMARATE 80/4.5 mcg INHALER IH SCH (09:47)
[2018-06-01] MEDS: DOCUSATE SODIUM 100 MG CAPSULE (FP) PO SCH (09:57)
[2018-06-01 10:38] VITALS: BP 138/71; PULSE 77; TEMP 97.9
--- NOTE | 2018-06-01 11:49 | DS ---
Physical Examination Vital Signs: Vital Signs Temperature 97.9 F 06/01/18 10:00 Pulse Rate 77 06/01/18 10:00 Respiratory Rate 20 06/01/18 10:00 Blood Pressure 138/71 06/01/18 10:00 O2 Sat by Pulse Oximetry (%) 91 L 06/01/18 09:00 Constitutional: Yes: Obese Eyes: Yes: Conjunctiva Clear HENT: Yes: Normocephalic Neck: Yes: Trachea Midline Cardiovascular: Yes: Regular Rate and Rhythm Respiratory: Yes: CTA Bilaterally Gastrointestinal: Yes: Normal Bowel Sounds, Soft, Abdomen, Obese Musculoskeletal: Yes: Muscle Weakness, Other (atrophied right arm) Edema: No Peripheral Pulses WNL: Yes Integumentary: Yes: Pressure Ulcer (stage 2 sacral), Venous Stasis Changes, Other (dry scaly skin over lower ext resolved tinea) Neurological: Yes: WNL Psychiatric: Yes: WNL Labs: CBC, BMP 05/28/18 06:40 05/28/18 06:40 Discharge Summary Reason For Visit: CELLULITIS Current Active Problems Cellulitis (Acute) Cough (Acute) Hospital admission due to social situation (Acute) Sacral decubitus ulcer, stage II (Acute) Hospital Course: patient was sent to hospital a day after NH discharge due to Unsafe living environment according to [facility]NS. since then hospital bed and rolling walker has been arranged to patient's home, son arranged for private hire. long h/o morbid obesity, salbador, iddm, cad, anxiety and chronic pain syndrome will need close outpt f/up hospital dc was delayed by 5 days due to acute copd exacerbation, respiratory status is better now, no wheezing, on oral steroids. Condition: Guarded - Instructions Disposition: VNS/HOME HEALTH CARE - Home Medications Comprehensive Discharge Medication List: Ambulatory Orders Aspirin [ASA -] 81 mg PO DAILY 10/05/13 Calcium 500Mg/Vit-D 200 Units [Os-Jorge 500+D -] 2 tab PO DAILY tab 01/24/18 Docusate Sodium [Colace -] 300 mg PO DAILY 03/30/18 Guaifenesin [Robitussin -] 10 ml PO Q6H PRN cup 04/19/18 Insulin Sliding Scale [Novolog Vial Sliding Scale -] 1 vial SQ ACHS units 04/19 Pantoprazole Sodium [Protonix -] 20 mg PO DAILY tablet.ec 04/19/18 Amlodipine Besylate [Norvasc -] 10 mg PO DAILY #30 tablet 05/26/18 Ammonium Lactate Lotion [Lac-Hydrin 12] 1 applic TP DAILY PRN #1 bottle Bacitracin - [Bacitracin Topical Ointment -] 1 applic TP DAILY #1 tube 05/26/18 Clopidogrel Bisulfate [Plavix -] 75 mg PO DAILY #30 tablet 05/26/18 Furosemide [Lasix -] 40 mg PO DAILY #30 tablet 05/26/18 Gabapentin [Neurontin -] 300 mg PO BID #60 capsule 05/26/18 Guaifenesin Dm [Mucinex Dm -] 2 tablet PO BID tab.er.12h 05/26/18 Losartan Potassium [Cozaar -] 50 mg PO DAILY #30 tablet 05/26/18 Morphine *Immediate Release* [Msir -] 30 mg PO Q4H PRN #90 tab MDD 120mg Morphine *Sr* [Ms Contin -] 45 mg PO BID #60 tablet.sa MDD 90 mg 05/26/18 Nystatin Powder [Nystop Powder -] 1 applic TP DAILY #1 bottle 05/26/18 Prednisone [Deltasone] 20 mg PO DAILY #5 tablet 05/26/18 Simvastatin [Zocor -] 40 mg PO HS #30 tablet 05/26/18 Tiotropium [place] [Spiriva Respimat] 2 puff IH DAILY #1 inhaler 05/26/18
[2018-06-01] MEDS ORDERED: INSULIN (NOVOLOG) ASPART 100 UNITS/ML 10ML VIAL ONE (12:02)
== END 2018-06-01 12:46 | disposition home health service (06) | DRG 641 ==
LOC: JER 14:47 → JERBED 20:24 → J8W 05-20 12:08
PROVIDERS: ADMIT Internal Medicine; ATTEND Internal Medicine
DX: E66.01 Morbid (severe) obesity due to excess calories (principal); N17.9 Acute kidney failure, unspecified; J44.1 Chronic obstructive pulmonary disease with (acute) exacerbation; G47.33 Obstructive sleep apnea (adult) (pediatric); J44.9 Chronic obstructive pulmonary disease, unspecified; Z79.4 Long term (current) use of insulin; R07.89 Other chest pain; R74.0 Nonspecific elevation of levels of transaminase and lactic acid dehydrogenase [LDH]; I25.10 Atherosclerotic heart disease of native coronary artery without angina pectoris; I10 Essential (primary) hypertension; E78.5 Hyperlipidemia, unspecified; Q74.8 Other specified congenital malformations of limb(s); I87.2 Venous insufficiency (chronic) (peripheral); E88.09 Other disorders of plasma-protein metabolism, not elsewhere classified; K43.9 Ventral hernia without obstruction or gangrene; G89.4 Chronic pain syndrome; B35.1 Tinea unguium; E11.51 Type 2 diabetes mellitus with diabetic peripheral angiopathy without gangrene; L89.152 Pressure ulcer of sacral region, stage 2; Z68.42 Body mass index [BMI] 45.0-49.9, adult
CPT/HCPCS: 36415; 71045-TC-FY; 73560-TC-RT-FY; 76705-TC; 80053; 82150; 82962; 83036; 83605; 83690; 83735; 83880; 84100; 84484; 85025; 85610; 85651; 85730; 86140; 86850; 86900; 86901; 87040; 90688; 93005; 93010; 94640; 94761; 97116-GP; 97161-GP; 99285-25; G0008

== ENCOUNTER 2019-02-19 19:22 | Inpatient (IN) | payer MEDICARE, OTHER ==
--- NOTE | 2019-02-19 20:37 | PDOC ---
Documentation entered by Socrates Porter SCRIBE, acting as scribe for Thuy Ragland MD. Thuy Ragland MD: This documentation has been prepared by the German hood Daniel, SCRIBE, under my direction and personally reviewed by me in its entirety. I confirm that the documentation accurately reflects all work, treatment, procedures, and medical decision making performed by me. Attending Attestation - Resident Resident Name: Andrew Alcaraz - ED Attending Attestation I have performed the following: I have examined & evaluated the patient, The case was reviewed & discussed with the resident, I agree w/resident's findings & plan, Exceptions are as noted - HPI HPI: 02/19/19 20:42 The patient is a 73 year old female with a past medical history of CAD s/p stents, HTN, HLD, asthma, history of MRSA, OA, diabetes, and Morbid Obesity here today for evaluation of cough. The patient reports that she has had a productive cough for the past few days. She also reports nausea, vomiting, and diarrhea but states that these have been chronic and intermittent. Patient notes chronic lower extremity edema but states that it is worse today. Patient denies headache, lightheadedness. Denies fever, chills. Denies chest pain, shortness of breath. Denies diarrhea. Allergies: metoprolol, metronidazole PCP: Vinicio Leahy - Physicial Exam PE: 02/19/19 20:42 GENERAL: +petite obese petite ,morbidly obese 73 yo female BIBA for cough HEENT: Normocephalic, atraumatic. PERRLA, EOMI. No conjunctival pallor. Sclera are non- icteric. Moist mucous membranes. Oropharynx is clear. NECK: Supple. Full ROM. No JVD. Carotid pulses 2+ and symmetric, without bruits. No thyromegaly. No lymphadenopathy. CARDIOVASCULAR: Regular rate and rhythm. No murmurs, rubs, or gallops. Distal pulses are 2+ and symmetric. PULMONARY: +rhonchi ABDOMINAL: + protuberant.no guarding MUSCULOSKELETAL Normal range of motion at all joints. No bony deformities or tenderness. No CVA tenderness. EXTREMITIES: +chronic venous stasis. + 3+pitting edema of lower extremities. No cyanosis. No clubbing. No calf tenderness. SKIN: +multiple blisters on lower extremities. Warm and dry NEUROLOGICAL: Alert, awake, appropriate. Cranial nerves 2-12 intact. PSYCHIATRIC: Cooperative. Good eye contact. Appropriate mood and affect. 02/19/19 20:51 - Medical Decision Making 02/19/19 22:35 73-year-old female presents with complaint of cough Past medical history COPD, NIKHIL, coronary artery disease status post stents, last cath in March 2014, hypertension, hyperlipidemia, renal insufficiency, diabetes, morbid obesity 02/19/19 22:36 Labs reviewed and her BNP is greater than 1200 Troponin is negative Chest x-ray cardiomyopathy Impression CHF Admit
[2019-02-19] MEDS ORDERED: ALBUTEROL SO4 2.5/IPRATROPIUM 0.5 INH SOL 3 ML VIAL.NEB. NEB ONE (20:39)
--- NOTE | 2019-02-19 20:46 | PDOC ---
History of Present Illness - General Chief Complaint: Cold Symptoms Stated Complaint: CONGESTION Time Seen by Provider: 02/19/19 19:59 - History of Present Illness Initial Comments: Ms. Joan Santana is a 73 y/o female with PMH significant for DM, asthma, morbid obesity, CAD s/p stents, presenting today with congestion and productive cough. Reports that 2 days ago she started having a productive cough with clear mucous and chest congestion. Denies chest pain or shortness of breath. Denies fever or chills. Reports intermittent NBNB vomiting over the past week. Denies abdominal pain. Reports intermittent diarrhea. Reports bilateral lower extremity swelling worse than prior. PMH: asthma, cad s/p stents SurgHx: cardiac stents, hysterectomy, knee replacement Past History - Past Medical History Allergies/Adverse Reactions: Allergies Allergy/AdvReac Type Severity Reaction Status Date / Time metoprolol Allergy Verified 02/19/19 19:54 metronidazole Allergy Verified 02/19/19 19:54 Home Medications: Ambulatory Orders Aspirin [ASA -] 81 mg PO DAILY 10/05/13 Calcium 500Mg/Vit-D 200 Units [Os-Jorge 500+D -] 2 tab PO DAILY tab 01/24/18 Docusate Sodium [Colace -] 300 mg PO DAILY 03/30/18 Guaifenesin [Robitussin -] 10 ml PO Q6H PRN cup 04/19/18 Insulin Sliding Scale [Novolog Vial Sliding Scale -] 1 vial SQ ACHS units 04/19 Pantoprazole Sodium [Protonix -] 20 mg PO DAILY tablet.ec 04/19/18 Amlodipine Besylate [Norvasc -] 10 mg PO DAILY #30 tablet 05/26/18 Ammonium Lactate Lotion [Lac-Hydrin 12] 1 applic TP DAILY PRN #1 bottle Bacitracin - [Bacitracin Topical Ointment -] 1 applic TP DAILY #1 tube 05/26/18 Clopidogrel Bisulfate [Plavix -] 75 mg PO DAILY #30 tablet 05/26/18 Furosemide [Lasix -] 40 mg PO DAILY #30 tablet 05/26/18 Gabapentin [Neurontin -] 300 mg PO BID #60 capsule 05/26/18 Guaifenesin Dm [Mucinex Dm -] 2 tablet PO BID tab.er.12h 05/26/18 Losartan Potassium [Cozaar -] 50 mg PO DAILY #30 tablet 05/26/18 Morphine *Immediate Release* [Msir -] 30 mg PO Q4H PRN #90 tab MDD 120mg Morphine *Sr* [Ms Contin -] 45 mg PO BID #60 tablet.sa MDD 90 mg 05/26/18 Nystatin Powder [Nystop Powder -] 1 applic TP DAILY #1 bottle 05/26/18 Simvastatin [Zocor -] 40 mg PO HS #30 tablet 05/26/18 Tiotropium [place] [Spiriva Respimat] 2 puff IH DAILY #1 inhaler 05/26/18 predniSONE [Deltasone] 20 mg PO DAILY #5 tablet 05/26/18 Anemia: No Asthma: No Cancer: Yes (Uterine Cancer) Cardiac Disorders: Yes (CARDIAC STENT X2) CVA: No COPD: No CHF: No Dementia: No Diabetes: Yes GI Disorders: No Disorders: No HTN: Yes Hypercholesterolemia: Yes Liver Disease: No Seizures: No Thyroid Disease: No - Surgical History Abdominal Surgery: No Appendectomy: No Cardiac Surgery: Yes (STENTS 5 yrs ago) Cholecystectomy: Yes Lung Surgery: No Neurologic Surgery: No Orthopedic Surgery: Yes (knee replacement 2005 knee surgeries following that ) - Immunization History Immunization Up to Date: Yes - Psycho Social/Smoking Cessation Hx Smoking Status: No Smoking History: Never smoked Have you smoked in the past 12 months: No Number of Cigarettes Smoked Daily: 0 If you are a former smoker, when did you quit?: 15 years ago Cigars Per Day: 0 Information on smoking cessation initiated: No 'Breaking Loose' booklet given: 03/15/14 Hx Alcohol Use: No Drug/Substance Use Hx: No Substance Use Type: None Hx Substance Use Treatment: No Review of Systems - Review of Systems Comments:: GENERAL/CONSTITUTIONAL: No fever or chills. No weakness._ HEAD, EYES, EARS, NOSE AND THROAT: No change in vision. No change in hearing. No sore throat._ CARDIOVASCULAR: No chest pain or shortness of breath. RESPIRATORY: Reports congestion and productive cough. GASTROINTESTINAL: Reports nausea and vomiting. No diarrhea or constipation._ GENITOURINARY: No dysuria, frequency, or change in urination._ MUSCULOSKELETAL: Reports bilateral leg swelling. No neck or back pain._ SKIN: No rash_ NEUROLOGIC: No headache, vertigo, loss of consciousness, or change in strength/ sensation._ ENDOCRINE: No increased thirst. No abnormal weight change_ HEMATOLOGIC/LYMPHATIC: No anemia, easy bleeding, or history of blood clots._ ALLERGIC/IMMUNOLOGIC: No hives or skin allergy._ *Physical Exam - Vital Signs Last Vital Signs Temp Pulse Resp BP Pulse Ox 98.0 F 78 17 146/68 95 02/19/19 19:49 02/19/19 19:49 02/19/19 19:49 02/19/19 19:49 02/19/19 19:49 - Physical Exam GENERAL: Awake, alert, and oriented to person/place/time, in no acute distress_ HEAD: No signs of trauma, normocephalic, atraumatic _ EYES: PERRLA, EOMI, sclera anicteric, conjunctiva clear_ ENT: Hearing grossly normal, nares patent, oropharynx clear without exudates. No uvular deviation. Moist mucosa_ NECK: Normal ROM, supple, no lymphadenopathy, JVD, or masses_ LUNGS: No distress, speaks in full sentences, diffuse congestion throughout upper and lower lung velez. HEART: Regular rate and rhythm, normal S1 and S2, no murmurs appreciated, peripheral pulses normal and equal bilaterally._ ABDOMEN: Soft, obese, nontender, normoactive bowel sounds. No guarding, no rebound. No masses_ EXTREMITIES: LUE contracted with limited ROM and strength. 4+ pitting edema with overlying skin thickening and erythema equal bilaterally chronic venous stasis. NEUROLOGICAL: Cranial nerves II through XII grossly intact. Normal speech, normal gait, no focal sensorimotor deficits _ SKIN: Warm, Dry, normal turgor, no rashes or lesions noted_ ED Treatment Course - LABORATORY CBC & Chemistry Diagram: 02/20/19 05:50 02/20/19 05:40 - RADIOLOGY Radiology Studies Ordered: Category Date Time Status CHEST X-RAY PORTABLE* [RAD] Stat Radiology 02/19/19 20:39 Ordered Medical Decision Making - Medical Decision Making 02/19/19 20:30 73F presenting with productive cough and congestion. -cbc, cmp, coags, bnp -cxr, ekg, trop -duoneb x1 -blood cx 02/19/19 22:25 EKG shows NSR, 78 bpm, no axis deviation, no ST elevation, QTc 403. CXR shows cardiomegaly otherwise no acute intra-thoracic process. 12/15/19 23:00 Labs reviewed. Laboratory Tests 02/19/19 02/19/19 02/19/19 21:07 21:07 21:07 WBC 11.3 H RBC 4.28 Hgb 12.3 Hct 38.4 MCV 89.6 MCH 28.8 MCHC 32.2 RDW 17.7 H Plt Count 246 MPV 9.0 Absolute Neuts (auto) 10.0 H Neutrophils % 88.6 H Neutrophils % (Manual) 86.0 H Band Neutrophils % 3.7 Lymphocytes % 5.1 L D Lymphocytes % (Manual) 3.8 L D Monocytes % 5.5 D Monocytes % (Manual) 5 D Eosinophils % 0.5 D Eosinophils % (Manual) 0.9 D Basophils % 0.3 Basophils % (Manual) 0.0 Myelocytes % (Man) 0 D Promyelocytes % (Man) 0 Blast Cells % (Manual) 0 Nucleated RBC % 0 Metamyelocytes 1 D Hypochromia 0 Platelet Estimate Normal Polychromasia 0 Poikilocytosis 0 Anisocytosis 1+ Microcytosis 1+ Macrocytosis 0 PT with INR INR PTT (Actin FS) Sodium 140 Potassium 4.8 Chloride 105 Carbon Dioxide 31 Anion Gap 4 L BUN 38.9 H Creatinine 1.7 H Est GFR (CKD-EPI)AfAm 34.32 Est GFR (CKD-EPI)NonAf 29.61 Random Glucose 106 Calcium 8.0 L Total Bilirubin 0.5 AST 19 ALT 19 Alkaline Phosphatase 127 H Creatine Kinase Troponin I B-Natriuretic Peptide Total Protein 4.6 L Albumin 2.1 L Influenza A (Rapid) Negative Influenza B (Rapid) Negative 02/19/19 02/19/19 02/19/19 21:07 21:07 21:07 WBC RBC Hgb Hct MCV MCH MCHC RDW Plt Count MPV Absolute Neuts (auto) Neutrophils % Neutrophils % (Manual) Band Neutrophils % Lymphocytes % Lymphocytes % (Manual) Monocytes % Monocytes % (Manual) Eosinophils % Eosinophils % (Manual) Basophils % Basophils % (Manual) Myelocytes % (Man) Promyelocytes % (Man) Blast Cells % (Manual) Nucleated RBC % Metamyelocytes Hypochromia Platelet Estimate Polychromasia Poikilocytosis Anisocytosis Microcytosis Macrocytosis PT with INR 13.00 INR 1.10 H PTT (Actin FS) 32.1 Sodium Potassium Chloride Carbon Dioxide Anion Gap BUN Creatinine Est GFR (CKD-EPI)AfAm Est GFR (CKD-EPI)NonAf Random Glucose Calcium Total Bilirubin AST ALT Alkaline Phosphatase Creatine Kinase 22 L Troponin I < 0.02 B-Natriuretic Peptide 1290.3 H Total Protein Albumin Influenza A (Rapid) Influenza B (Rapid) 02/19/19 23:22 Pt reassessed. Reports some improvement after duonebs. D/w MIXER OPERATOR Daniel who accepts the patient for admission. Will give 20 mg IV lasix. Discharge - Discharge Information Problems reviewed: Yes Clinical Impression/Diagnosis: CHF (congestive heart failure) Qualifiers: Heart failure type: unspecified Heart failure chronicity: unspecified Qualified Code(s): I50.9 - Heart failure, unspecified Condition: Stable - Admission Yes - Follow up/Referral - Patient Discharge Instructions - Post Discharge Activity
[2019-02-19 21:18] LABS: BASO % 0.3 % (0-2.0); EOS % 0.5 % (0-4.5); HEMATOCRIT 38.4 % (32.4-45.2); HEMOGLOBIN 12.3 GM/dL (10.7-15.3); LYMPH % 5.1 % (8-40); MCH 28.8 pg (25.7-33.7); MCHC 32.2 g/dl (32.0-36.0); MEAN CELL VOLUME 89.6 fl (80-96); MONO % 5.5 % (3.8-10.2); NEUT % 88.6 % (42.8-82.8); PLATELET COUNT 246 K/MM3 (134-434); RBC 4.28 M/mm3 (3.60-5.2); RDW 17.7 % (11.6-15.6); WHITE BLOOD COUNT 11.3 K/mm3 (4.0-10.0)
[2019-02-19 21:35] LABS: INR 1.1 (0.83-1.09)
[2019-02-19 21:37] LABS: ACTIVATED PTT 32.1 SECONDS (25.2-36.5)
[2019-02-19 21:46] LABS: ALBUMIN 2.1 g/dl (3.4-5.0); BILIRUBIN,TOTAL 0.5 mg/dL (0.2-1); BLOOD UREA NITROGEN 38.9 mg/dL (7-18); CREATININE 1.7 mg/dL (0.55-1.3); POTASSIUM 4.8 mmol/L (3.5-5.1); TOT PROT 4.6 g/dl (6.4-8.2)
[2019-02-19 22:08] LABS: ANISOCYTOSIS 1+; MACROCYTOSIS 0; PLATELET ESTIMATE NORMAL
[2019-02-19] MEDS ORDERED: FUROSEMIDE 40 MG/4 ML INJECTABLE VIAL IVPUSH ONE (23:21)
[2019-02-19] MEDS ORDERED: FUROSEMIDE 40 MG/4 ML INJECTABLE VIAL ONE (23:38)
[2019-02-19] MEDS ORDERED: guaiFENesin 200 MG/10 ML 10 ML UNIT-DOSE CUPS PO PRN (23:42)
[2019-02-19] MEDS ORDERED: ACETAMINOPHEN 325 MG TABLET (FP) PO PRN (23:47)
--- NOTE | 2019-02-19 23:49 | HP ---
Admitting History and Physical - Primary Care Physician PCP: Dr. Leahy - Admission Chief Complaint: wheezing, congestion History of Present Illness: 73 y/o female with PMH significant for DM, asthma, morbid obesity, CAD s/p stents, presenting today with congestion, wheezing and productive cough. Reports that 2 days ago she started having a productive cough with clear mucous and chest congestion. Denies chest pain or shortness of breath. Denies fever or chills. Reports intermittent NBNB vomiting over the past week. Denies abdominal pain. Reports bilateral lower extremity swelling worse than prior. History Source: Patient, Family Member Limitations to Obtaining History: No Limitations - Past Medical History Cardiovascular: Yes: CAD (s/p cardiac stents, last cath in Mar 2014 showed nonobstructive disease), HTN, Hyperlipdemia Pulmonary: Yes: COPD Gastrointestinal: Yes: Constipation Renal/: Yes: Renal Inusuff Musculoskeletal: Yes: Osteoarthritis Endocrine: Yes: Diabetes Mellitus, Other (Morbid Obesity) - Past Surgical History Past Surgical History: Yes: Cholecystectomy, Hysterectomy, Joint Replacement (R knee as above) - Smoking History Smoking history: Never smoked Have you smoked in the past 12 months: No Aproximately how many cigarettes per day: 0 If you are a former smoker, when did you quit?: 15 years ago - Alcohol/Substance Use Hx Alcohol Use: No History of Substance Use: reports: None - Social History Usual Living Arrangement: Yes: Other (with aide, and family visits) ADL: Family Assistance History of Recent Travel: No Home Medications - Allergies Allergies/Adverse Reactions: Allergies Allergy/AdvReac Type Severity Reaction Status Date / Time metoprolol Allergy Verified 02/19/19 19:54 metronidazole Allergy Verified 02/19/19 19:54 - Home Medications Home Medications: Ambulatory Orders Aspirin [ASA -] 81 mg PO DAILY 10/05/13 Calcium 500Mg/Vit-D 200 Units [Os-Jorge 500+D -] 2 tab PO DAILY tab 01/24/18 Docusate Sodium [Colace -] 300 mg PO DAILY 03/30/18 Guaifenesin [Robitussin -] 10 ml PO Q6H PRN cup 04/19/18 Insulin Sliding Scale [Novolog Vial Sliding Scale -] 1 vial SQ ACHS units 04/19 Pantoprazole Sodium [Protonix -] 20 mg PO DAILY tablet.ec 04/19/18 Amlodipine Besylate [Norvasc -] 10 mg PO DAILY #30 tablet 05/26/18 Ammonium Lactate Lotion [Lac-Hydrin 12] 1 applic TP DAILY PRN #1 bottle Bacitracin - [Bacitracin Topical Ointment -] 1 applic TP DAILY #1 tube 05/26/18 Clopidogrel Bisulfate [Plavix -] 75 mg PO DAILY #30 tablet 05/26/18 Furosemide [Lasix -] 40 mg PO DAILY #30 tablet 05/26/18 Gabapentin [Neurontin -] 300 mg PO BID #60 capsule 05/26/18 Guaifenesin Dm [Mucinex Dm -] 2 tablet PO BID tab.er.12h 05/26/18 Losartan Potassium [Cozaar -] 50 mg PO DAILY #30 tablet 05/26/18 Morphine *Immediate Release* [Msir -] 30 mg PO Q4H PRN #90 tab MDD 120mg Morphine *Sr* [Ms Contin -] 45 mg PO BID #60 tablet.sa MDD 90 mg 05/26/18 Nystatin Powder [Nystop Powder -] 1 applic TP DAILY #1 bottle 05/26/18 Simvastatin [Zocor -] 40 mg PO HS #30 tablet 05/26/18 Tiotropium [place] [Spiriva Respimat] 2 puff IH DAILY #1 inhaler 05/26/18 predniSONE [Deltasone] 20 mg PO DAILY #5 tablet 05/26/18 Family Medical History Family History: Denies Review of Systems - Review of Systems Constitutional: reports: No Symptoms Eyes: reports: No Symptoms HENT: reports: No Symptoms Neck: reports: No Symptoms Cardiovascular: reports: No Symptoms Respiratory: reports: Cough, Wheezing Gastrointestinal: reports: Nausea, Vomiting Genitourinary: reports: No Symptoms Breasts: reports: No Symptoms Reported Musculoskeletal: reports: No Symptoms Integumentary: reports: No Symptoms Neurological: reports: No Symptoms Endocrine: reports: No Symptoms Hematology/Lymphatic: reports: No Symptoms Psychiatric: reports: No Symptoms Physical Examination Vital Signs: Vital Signs Temperature 98.0 F 02/19/19 19:49 Pulse Rate 78 02/19/19 19:49 Respiratory Rate 17 02/19/19 19:49 Blood Pressure 146/68 02/19/19 19:49 O2 Sat by Pulse Oximetry (%) 95 02/19/19 19:49 Constitutional: Yes: No Distress, Calm Eyes: Yes: Conjunctiva Clear, EOM Intact HENT: Yes: Atraumatic, Normocephalic Neck: Yes: Supple, Trachea Midline Cardiovascular: Yes: Regular Rate and Rhythm, S1, S2 Respiratory: Yes: Regular, On Nasal O2, SOB, Wheezes Gastrointestinal: Yes: Normal Bowel Sounds, Soft, Abdomen, Obese Renal/: Yes: WNL Musculoskeletal: Yes: WNL Extremities: Yes: WNL Edema: Yes Edema: LLE: 4+, RLE: 4+ Peripheral Pulses WNL: Yes Neurological: Yes: Alert, Oriented Labs: CBC, BMP 02/19/19 21:07 02/19/19 21:07 Imaging - Results Chest X-ray: Report Reviewed (Chest x-ray - right side vascular changes, cardiomyopathy (my reading)) EKG: Report Reviewed (EKG shows NSR, 78 bpm, no axis deviation, no ST elevation) Problem List - Problems (1) COPD exacerbation Code(s): J44.1 - CHRONIC OBSTRUCTIVE PULMONARY DISEASE W (ACUTE) EXACERBATION (2) CHF exacerbation Code(s): I50.9 - HEART FAILURE, UNSPECIFIED Qualifiers: Heart failure type: unspecified Qualified Code(s): I50.9 - Heart failure, unspecified (3) SANGITA (acute kidney injury) Code(s): N17.9 - ACUTE KIDNEY FAILURE, UNSPECIFIED (4) CAD (coronary artery disease) Code(s): I25.10 - ATHSCL HEART DISEASE OF [place] CORONARY ARTERY W/O ANG PCTRS Qualifiers: Coronary Disease-Associated Artery/Lesion type: [place] artery Associated angina: without angina (5) Cough Code(s): R05 - COUGH (6) Diabetes mellitus Code(s): E11.9 - TYPE 2 DIABETES MELLITUS WITHOUT COMPLICATIONS Qualifiers: Diabetes mellitus type: type 2 Diabetes mellitus detention insulin use: with ferry terminal supervisor use (7) HTN (hypertension) Code(s): I10 - ESSENTIAL (PRIMARY) HYPERTENSION Qualifiers: (8) Hyperlipidemia Code(s): E78.5 - HYPERLIPIDEMIA, UNSPECIFIED (9) Morbid obesity Code(s): E66.01 - MORBID (SEVERE) OBESITY DUE TO EXCESS CALORIES (10) Nausea & vomiting Code(s): R11.2 - NAUSEA WITH VOMITING, UNSPECIFIED Qualifiers: Vomiting type: bilious vomiting Qualified Code(s): R11.14 - Bilious vomiting Assessment/Plan 73 y/o female with PMH significant for DM, morbid obesity, HTN/ HLD, CAD s/p stents, Asthma ? COPD arrived to ED for congestion, productive cough and right side wheezing. # COPD VS CHF exacerbation - BNP: 1290.3 - CXR: - wbc: 11.3, afebriel at this time - follow up blood, urine cx - In ED given Lasix, and nebulizer x1 with relief - Cadena inserted, Monitor I &O - Fluid restriction, Weights - continue with lasix 40 mg IV Push daily - Continue with solumedorl 40 mg BID - Continue with nebulizer tx QID - Continue with robitussin q6h PRN - continue with o2 via NC - follow up mold yard supervisor in AM - consider cardiology follow up if needed - elevate extremity # CAD # HTN/ HLD - cont home meds Losartan ,Norvasc , ASA , plavix , Zocor # SANGITA - avoid nephrotoxic agents - consider nephrology follow up if needed # Nausea/ vomiting - resolved - if noted, consider zofran pRN # Diabetes mellitus - FSBS TID AC - Coverage with Novolog sliding scale - diabetic diet # Chronic Knee pain ( h/o of knee replacement) - cont home dose morphine sort acting Q 4 and long acting BID , gabapentin # GERD # Constipation - Continue with PPI - Continue with Colace # Obesity -educated about life style changes and low calorie diet FEN: - FLOR[place]/ NCS - Fluid restriction VTE: - Heparin SQ TID # Dispo - med surg Visit type - Emergency Visit Emergency Visit: Yes Care time: The patient presented to the Emergency Department on the above date and was hospitalized for further evaluation of their emergent condition. - New Patient This patient is new to me today: Yes Date on this admission: 02/19/19 - Critical Care Critical Care patient: No
[2019-02-20 03:11] LABS: URINE APPEARANCE CLOUDY
[2019-02-20 03:12] LABS: URINE BILIRUBIN NEGATIVE (NEGATIVE); URINE COLOR BROWN; URINE GLUCOSE (UA) NEGATIVE (NEGATIVE); URINE KETONE NEGATIVE (NEGATIVE); URINE PROTEIN 100 (NEGATIVE)
[2019-02-20 03:13] LABS: URINE NITRITE POSITIVE (NEGATIVE)
[2019-02-20 03:14] LABS: URINE LEUK ESTERASE MODERATE (NEGATIVE); URINE RBC 16 /hpf (0-4); URINE WBC 117 /hpf (0-5)
[2019-02-20 03:15] LABS: EPI CELLS 3 /HPF (0-5/HPF); URINE BACTERIA 5022 /hpf (NEGATIVE)
[2019-02-20 03:21] LABS: HYALINE CASTS 3 /lpf (0-8)
[2019-02-20] MEDS: morphine SULFATE IMMEDIATE RELEASE 30 MG TAB PO PRN ×2 (03:44→07:59)
[2019-02-20] MEDS: HEPARIN NA (PORCINE) 5,000 UNITS/ML 1ML VIAL SQ SCH ×3 (06:45→22:00)
[2019-02-20] MEDS: INSULIN SLIDING SCALE (NOVOLOG) 1 VIAL SQ SCH ×3 (06:45→17:25)
[2019-02-20 06:46] LABS: HEMATOCRIT 32.7 % (32.4-45.2); HEMOGLOBIN 10.8 GM/dL (10.7-15.3); MCH 29.2 pg (25.7-33.7); MCHC 32.9 g/dl (32.0-36.0); MEAN CELL VOLUME 88.8 fl (80-96); MEAN PLT VOLUME 8.8 fl (7.5-11.1); PLATELET COUNT 212 K/MM3 (134-434); RBC 3.68 M/mm3 (3.60-5.2); RDW 17.1 % (11.6-15.6); WHITE BLOOD COUNT 8.2 K/mm3 (4.0-10.0)
[2019-02-20 07:02] LABS: BLOOD UREA NITROGEN 42.8 mg/dL (7-18); CALCIUM 7.7 mg/dL (8.5-10.1); CREATININE 1.9 mg/dL (0.55-1.3); POTASSIUM 4.8 mmol/L (3.5-5.1)
[2019-02-20] MEDS: ALBUTEROL SO4 2.5/IPRATROPIUM 0.5 INH SOL 3 ML VIAL.NEB. NEB SCH ×4 (08:00→20:09)
[2019-02-20] MEDS ORDERED: morphine SULFATE IMMEDIATE RELEASE 30 MG TAB PO PRN (08:27)
--- NOTE | 2019-02-20 08:41 | PN ---
Progress Note (short form) - Note Progress Note: 73 yo lady multiple medical problems including morbid obesity, Type 2 DM, CAD, HTN, high cholesterol, NIKHIL, COPD, OA, chronic pain syndrome brought in by daughter due to chest congestion pt herself feels she is ok, but did note increased cough, and inability to expectorate lives home with private hire aid and niece CBC, BMP 02/20/19 05:50 02/20/19 05:40 Vital Signs Period Temp Pulse Resp BP Sys/Gott[place] Pulse Ox Last 24 Hr 97.9 F-98.0 F 73-78 17-19 146-152/68-80 94-98 Active Medications Acetaminophen (Tylenol -) 650 mg PO Q6H PRN PRN Reason: PAIN LEVEL 1-5 Albuterol/Ipratropium (Duoneb -) 1 amp NEB RQID [facility] Amlodipine Besylate (Norvasc -) 10 mg PO DAILY [facility] Aspirin (Asa -) 81 mg PO DAILY [facility] Atorvastatin Calcium (Lipitor -) 20 mg PO HS [facility] Calcium Carbonate/Cholecalciferol (Os-Jorge 500+D -) 2 tab PO DAILY [facility] Clopidogrel Bisulfate (Plavix -) 75 mg PO DAILY [facility] Docusate Sodium (Colace -) 300 mg PO DAILY [facility] Furosemide (Lasix Injection -) 40 mg IVPUSH DAILY [facility] Gabapentin (Neurontin -) 300 mg PO BID [facility] Guaifenesin (Robitussin -) 10 ml PO Q6H PRN PRN Reason: COUGH Heparin Sodium (Porcine) (Heparin -) 5,000 unit SQ TID [facility] Last Admin: 02/20/19 06:45 Dose: 5,000 unit Ceftriaxone Sodium 1 gm/ (Dextrose) 50 mls @ 100 mls/hr IVPB DAILY [facility] Insulin Aspart (Novolog Vial Sliding Scale -) 1 vial SQ TIDAC [facility]; Protocol Last Admin: 02/20/19 06:45 Dose: Not Given Losartan Potassium (Cozaar -) 50 mg PO DAILY [facility] Methylprednisolone Sodium Succinate (Solu-Medrol -) 40 mg IVPUSH BID [facility] Morphine Sulfate (Msir -) 15 mg PO Q4H PRN PRN Reason: BREAKTHROUGH PAIN Morphine Sulfate (Ms Contin -) 30 mg PO BID [facility] Stop: 02/26/19 09:59 Nystatin (Nystop Powder -) 1 applic TP BID [facility] Pantoprazole Sodium (Protonix -) 20 mg PO DAILY [facility] Tiotropium [place] (Spiriva Respimat) 2 puff IH DAILY [facility] CXR no infiltrate of failure-poor quality morbidly obese s1s2 rrr lungs diffuse rhonchi anteriorly abd obese tinea, erythema under abdominal flap and groin chronic stasis dermatitis bilateral lower ext. tr edema bedbound, did not walk for over 1 year tearful, anxious oriented x3, but does have dependent jerking movements and slightly slurred speech acute copd exacerbation NIKHIL component of bronchitis? UTI too much pain medicine CKD-acute on chr. baseline creat~1.2 dm htn cad morbid obesity plan iv steroid iv ceftriaxone bipap at night PT eval-pt wants to go home, needs social service f/up gi/dvt prophylaxis decrease narcotic dosing
[2019-02-20] MEDS ORDERED: DEXTROSE 5%-WATER - 50 ML IVPB ONE (09:00)
[2019-02-20] MEDS ORDERED: cefTRIAXone SODIUM 1 GM VIAL ONE (09:00)
[2019-02-20] MEDS: CEFTRIAXONE 1 GM in DEXTROSE 5%-WATER - 50 ML IVPB SCH (09:55)
[2019-02-20] MEDS: CALCIUM 500MG/VIT-D 200 UNITS COMBO TABLET (FP) PO SCH (09:56)
[2019-02-20] MEDS: GABAPENTIN 300 MG CAPSULE (FP) PO SCH ×2 (09:57→22:02)
[2019-02-20] MEDS: DOCUSATE SODIUM 100 MG CAPSULE (FP) PO SCH (09:57)
[2019-02-20] MEDS: amLODIPine BESYLATE 10 MG TABLET (FP) PO SCH (09:57)
[2019-02-20] MEDS: CLOPIDOGREL BISULFATE 75 MG TABLET (FP) PO SCH (09:57)
[2019-02-20] MEDS: ASPIRIN 81 MG CHEWABLE TABLETS PO SCH (09:57)
[2019-02-20] MEDS: LOSARTAN POTASSIUM 50 MG TABLET (FP) PO SCH (09:57)
[2019-02-20] MEDS: FUROSEMIDE 40 MG/4 ML INJECTABLE VIAL IVPUSH SCH (09:57)
[2019-02-20] MEDS: PANTOPRAZOLE 20 MG TABLET (FP) PO SCH (09:57)
[2019-02-20] MEDS: methylPREDNISolone NA SUCC 40 MG/1 ML VIAL IVPUSH SCH ×2 (09:58→22:00)
[2019-02-20] MEDS: morphine SO4 SUSTAINED ACTING 30 MG TABLET.SA PO SCH ×2 (09:58→22:02)
[2019-02-20] MEDS: NYSTATIN POWDER 100,000 UNITS/GM - 15 GM TOPICAL POWDER TP SCH ×2 (09:58→22:02)
[2019-02-20] MEDS ORDERED: TIOTROPIUM BROMIDE 2.5 MCG (SPIRIVA) RESPIMAT INHALER IH SCH (10:00)
[2019-02-20] MEDS ORDERED: morphine SO4 SUSTAINED ACTING 15 MG TABLET.SA PO SCH (10:00)
--- NOTE | 2019-02-20 10:52 | CON.CARD ---
Consult Consult Specialty:: Cardiology - History of Present Illness History of Present Illness: 73 y/o female with PMH significant for DM, asthma, morbid obesity, CAD s/p stents, presenting today with congestion, wheezing and productive cough. Reports that 2 days ago she started having a productive cough with clear mucous and chest congestion. Denies chest pain or shortness of breath. Denies fever or chills. Reports intermittent NBNB vomiting over the past week. Denies abdominal pain. Reports bilateral lower extremity swelling worse than prior. - History Source History Provided By: Patient, Medical Record - Past Medical History Cardio/Vascular: Yes: CAD (s/p cardiac stents, last cath in Mar 2014 showed nonobstructive disease), HTN, Hyperlipdemia Pulmonary: Yes: COPD Gastrointestinal: Yes: Constipation Renal/: Yes: Renal Inusuff ...: No Infectious Disease: Yes: MRSA (h/o MRSA several years ago) Psych: Yes: Anxiety, Panic Musculoskeletal: Yes: Osteoarthritis Endocrine: Yes: Diabetes Mellitus, Other (Morbid Obesity) - Past Surgical History Past Surgical History: Yes: Cholecystectomy, Hysterectomy, Joint Replacement (R knee as above) - Alcohol/Substance Use Hx Alcohol Use: No History of Substance Use: reports: None - Smoking History Smoking history: Former smoker Have you smoked in the past 12 months: No Aproximately how many cigarettes per day: 0 If you are a former smoker, when did you quit?: 15 years ago - Social History ADL: Family Assistance History of Recent Travel: No Home Medications - Allergies Allergies/Adverse Reactions: Allergies Allergy/AdvReac Type Severity Reaction Status Date / Time metoprolol Allergy Verified 02/19/19 19:54 metronidazole Allergy Verified 02/19/19 19:54 - Home Medications Home Medications: Ambulatory Orders Aspirin [ASA -] 81 mg PO DAILY 10/05/13 Calcium 500Mg/Vit-D 200 Units [Os-Jorge 500+D -] 2 tab PO DAILY tab 01/24/18 Docusate Sodium [Colace -] 300 mg PO DAILY 03/30/18 Guaifenesin [Robitussin -] 10 ml PO Q6H PRN cup 04/19/18 Insulin Sliding Scale [Novolog Vial Sliding Scale -] 1 vial SQ ACHS units 04/19 Pantoprazole Sodium [Protonix -] 20 mg PO DAILY tablet.ec 04/19/18 Amlodipine Besylate [Norvasc -] 10 mg PO DAILY #30 tablet 05/26/18 Ammonium Lactate Lotion [Lac-Hydrin 12] 1 applic TP DAILY PRN #1 bottle Bacitracin - [Bacitracin Topical Ointment -] 1 applic TP DAILY #1 tube 05/26/18 Clopidogrel Bisulfate [Plavix -] 75 mg PO DAILY #30 tablet 05/26/18 Furosemide [Lasix -] 40 mg PO DAILY #30 tablet 05/26/18 Gabapentin [Neurontin -] 300 mg PO BID #60 capsule 05/26/18 Guaifenesin Dm [Mucinex Dm -] 2 tablet PO BID tab.er.12h 05/26/18 Losartan Potassium [Cozaar -] 50 mg PO DAILY #30 tablet 05/26/18 Morphine *Immediate Release* [Msir -] 30 mg PO Q4H PRN #90 tab MDD 120mg Morphine *Sr* [Ms Contin -] 45 mg PO BID #60 tablet.sa MDD 90 mg 05/26/18 Nystatin Powder [Nystop Powder -] 1 applic TP DAILY #1 bottle 05/26/18 Simvastatin [Zocor -] 40 mg PO HS #30 tablet 05/26/18 Tiotropium [place] [Spiriva Respimat] 2 puff IH DAILY #1 inhaler 05/26/18 predniSONE [Deltasone] 20 mg PO DAILY #5 tablet 05/26/18 Review of Systems - Review of Systems Constitutional: reports: No Symptoms Eyes: reports: No Symptoms HENT: reports: No Symptoms Neck: reports: No Symptoms Cardiovascular: reports: Edema, Shortness of Breath Respiratory: reports: SOB, SOB on Exertion Gastrointestinal: reports: No Symptoms Genitourinary: reports: No Symptoms Breasts: reports: No Symptoms Reported Musculoskeletal: reports: No Symptoms Integumentary: reports: No Symptoms Neurological: reports: No Symptoms Endocrine: reports: No Symptoms Hematology/Lymphatic: reports: No Symptoms Psychiatric: reports: No Symptoms Vital Signs: Vital Signs Temperature 97.9 F 02/20/19 04:46 Pulse Rate 74 02/20/19 04:46 Respiratory Rate 18 02/20/19 04:46 Blood Pressure 149/80 02/20/19 04:46 O2 Sat by Pulse Oximetry (%) 98 02/20/19 04:46 Constitutional: Yes: Well Nourished, No Distress, Calm Eyes: Yes: WNL, Conjunctiva Clear, EOM Intact HENT: Yes: WNL, Atraumatic, Normocephalic Neck: Yes: WNL, Supple, Trachea Midline Respiratory: Yes: WNL, Regular, CTA Bilaterally Gastrointestinal: Yes: WNL, Normal Bowel Sounds Renal/: Yes: WNL Cardiovascular: Yes: WNL, Regular Rate and Rhythm Musculoskeletal: Yes: WNL Extremities: Yes: WNL Edema: Yes Integumentary: Yes: WNL ...Motor Strength: WNL Psychiatric: Yes: WNL, Alert, Oriented - Other Data Labs, Other Data: CBC, BMP 02/20/19 05:50 02/20/19 05:40 INR, PTT INR 1.10 (0.83-1.09) H 02/19/19 21:07 Troponin, BNP 02/19/19 02/19/19 21:07 21:07 Troponin I < 0.02 B-Natriuretic Peptide 1290.3 H Troponin, BNP 02/19/19 02/19/19 21:07 21:07 Troponin I < 0.02 B-Natriuretic Peptide 1290.3 H Imaging - Results Chest X-ray: Image Reviewed (no i/e) Problem List - Problems (1) SANGITA (acute kidney injury) Code(s): N17.9 - ACUTE KIDNEY FAILURE, UNSPECIFIED (2) Acute respiratory failure with hypoxia and hypercapnia Code(s): J96.01 - ACUTE RESPIRATORY FAILURE WITH HYPOXIA; J96.02 - ACUTE RESPIRATORY FAILURE WITH HYPERCAPNIA (3) [id number] kidney injury Code(s): N17.9 - ACUTE KIDNEY FAILURE, UNSPECIFIED; N18.9 - CHRONIC KIDNEY DISEASE, UNSPECIFIED (4) CAD (coronary artery disease) Code(s): I25.10 - ATHSCL HEART DISEASE OF [place] CORONARY ARTERY W/O ANG PCTRS Qualifiers: Coronary Disease-Associated Artery/Lesion type: [place] artery Associated angina: without angina (5) CHF exacerbation Code(s): I50.9 - HEART FAILURE, UNSPECIFIED Qualifiers: Heart failure type: unspecified Qualified Code(s): I50.9 - Heart failure, unspecified (6) COPD exacerbation Code(s): J44.1 - CHRONIC OBSTRUCTIVE PULMONARY DISEASE W (ACUTE) EXACERBATION (7) Cellulitis Code(s): L03.90 - CELLULITIS, UNSPECIFIED Qualifiers: Site of cellulitis: extremity Site of cellulitis of extremity: lower extremity Laterality: unspecified laterality Qualified Code(s): L03.119 - Cellulitis of unspecified part of limb (8) Chest pain Code(s): R07.9 - CHEST PAIN, UNSPECIFIED Qualifiers: Chest pain type: other chest pain Qualified Code(s): R07.89 - Other chest pain; R07.8 - Other chest pain (9) Chronic pain Code(s): G89.29 - OTHER CHRONIC PAIN Qualifiers: Chronic pain type: chronic pain syndrome Qualified Code(s): G89.4 - Chronic pain syndrome (10) Chronic renal insufficiency Code(s): N18.9 - CHRONIC KIDNEY DISEASE, UNSPECIFIED (11) Cough Code(s): R05 - COUGH (12) Dehydration Code(s): E86.0 - DEHYDRATION (13) Diabetes mellitus Code(s): E11.9 - TYPE 2 DIABETES MELLITUS WITHOUT COMPLICATIONS Qualifiers: Diabetes mellitus type: type 2 Diabetes mellitus rat 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 insulin use: with rat 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 use (14) Dyslipidemia Code(s): E78.5 - HYPERLIPIDEMIA, UNSPECIFIED (15) Elevated troponin Code(s): R74.8 - ABNORMAL LEVELS OF OTHER SERUM ENZYMES (16) HTN (hypertension) Code(s): I10 - ESSENTIAL (PRIMARY) HYPERTENSION Qualifiers: (17) Hospital admission due to social situation Code(s): Z60.9 - PROBLEM RELATED TO SOCIAL ENVIRONMENT, UNSPECIFIED (18) Hyperlipidemia Code(s): E78.5 - HYPERLIPIDEMIA, UNSPECIFIED (19) Hypothyroid Code(s): E03.9 - HYPOTHYROIDISM, UNSPECIFIED (20) Infection of knee Code(s): [id number] - (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, congenital Code(s): 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 (22) Morbid obesity Code(s): E66.01 - MORBID (SEVERE) OBESITY DUE TO EXCESS CALORIES (23) Nausea & vomiting Code(s): R11.2 - NAUSEA WITH VOMITING, UNSPECIFIED Qualifiers: Vomiting type: bilious vomiting Qualified Code(s): R11.14 - Bilious vomiting (24) Obesity Code(s): E66.9 - OBESITY, UNSPECIFIED Qualifiers: Obesity type: due to excess calories Obesity classification: adult class 3 (BMI >= 40) Body mass index: BMI 60.0-69.9 (25) Pericardial effusion Code(s): I31.3 - PERICARDIAL EFFUSION (NONINFLAMMATORY) (26) Pericardial effusion Code(s): I31.3 - PERICARDIAL EFFUSION (NONINFLAMMATORY) (27) Renal insufficiency, mild Code(s): N28.9 - DISORDER OF KIDNEY AND URETER, UNSPECIFIED (28) Sacral decubitus ulcer, stage II Code(s): L89.152 - PRESSURE ULCER OF SACRAL REGION, STAGE 2 (29) Sepsis Code(s): A41.9 - SEPSIS, UNSPECIFIED ORGANISM Qualifiers: Sepsis type: sepsis due to unspecified organism Qualified Code(s): A41.9 - Sepsis, unspecified organism (30) Tinea Code(s): B35.9 - DERMATOPHYTOSIS, UNSPECIFIED (31) Urinary tract infection Code(s): N39.0 - URINARY TRACT INFECTION, SITE NOT SPECIFIED Qualifiers: Urinary tract infection type: site unspecified Hematuria presence: without hematuria Qualified Code(s): N39.0 - Urinary tract infection, site not specified (32) Vertigo Code(s): R42 - DIZZINESS AND GIDDINESS Assessment/Plan DM, asthma, morbid obesity, CAD s/p stents presenting with decompensated CHF Plan IV Lasix ASA BP control steroids and abx as per pulmonary
[2019-02-20] MEDS ORDERED: ALBUTEROL SO4 0.083% IH SOL 2.5 MG/3 ML VIAL.NEB. NEB PRN (11:37)
--- NOTE | 2019-02-20 11:37 | CON.PULM ---
Consult Consult Specialty:: PULMONARY Referred by:: Dr Leahy Reason for Consultation:: COPD - History of Present Illness Chief Complaint: shortness of breath History of Present Illness: 73yo female with h/o DM, CAD, asthma, morbid obesity who was admitted with worsening shortness of breath. Reports a cough productive of clear sputum and wheezing. No fevers, chills or sweats. No chest pain or discomfort. Reports improvement with nebulizer treatments. Also reports increase in leg swelling. She is a nonsmoker. - History Source History Provided By: Patient, Medical Record Limitations to Obtaining History: No Limitations - Past Medical History Cardio/Vascular: Yes: CAD (s/p cardiac stents, last cath in Mar 2014 showed nonobstructive disease), HTN, Hyperlipdemia Pulmonary: Yes: COPD Gastrointestinal: Yes: Constipation Renal/: Yes: Renal Inusuff ...: No Infectious Disease: Yes: MRSA (h/o MRSA several years ago) Psych: Yes: Anxiety, Panic Musculoskeletal: Yes: Osteoarthritis Endocrine: Yes: Diabetes Mellitus, Other (Morbid Obesity) - Past Surgical History Past Surgical History: Yes: Cholecystectomy, Hysterectomy, Joint Replacement (R knee as above) - Alcohol/Substance Use Hx Alcohol Use: No History of Substance Use: reports: None - Smoking History Smoking history: Former smoker Have you smoked in the past 12 months: No Aproximately how many cigarettes per day: 0 If you are a former smoker, when did you quit?: 15 years ago - Social History ADL: Family Assistance History of Recent Travel: No Home Medications - Allergies Allergies/Adverse Reactions: Allergies Allergy/AdvReac Type Severity Reaction Status Date / Time metoprolol Allergy Verified 02/19/19 19:54 metronidazole Allergy Verified 02/19/19 19:54 - Home Medications Home Medications: Ambulatory Orders Aspirin [ASA -] 81 mg PO DAILY 10/05/13 Calcium 500Mg/Vit-D 200 Units [Os-Jorge 500+D -] 2 tab PO DAILY tab 01/24/18 Docusate Sodium [Colace -] 300 mg PO DAILY 03/30/18 Guaifenesin [Robitussin -] 10 ml PO Q6H PRN cup 04/19/18 Insulin Sliding Scale [Novolog Vial Sliding Scale -] 1 vial SQ ACHS units 04/19 Pantoprazole Sodium [Protonix -] 20 mg PO DAILY tablet.ec 04/19/18 Amlodipine Besylate [Norvasc -] 10 mg PO DAILY #30 tablet 05/26/18 Ammonium Lactate Lotion [Lac-Hydrin 12] 1 applic TP DAILY PRN #1 bottle Bacitracin - [Bacitracin Topical Ointment -] 1 applic TP DAILY #1 tube 05/26/18 Clopidogrel Bisulfate [Plavix -] 75 mg PO DAILY #30 tablet 05/26/18 Furosemide [Lasix -] 40 mg PO DAILY #30 tablet 05/26/18 Gabapentin [Neurontin -] 300 mg PO BID #60 capsule 05/26/18 Guaifenesin Dm [Mucinex Dm -] 2 tablet PO BID tab.er.12h 05/26/18 Losartan Potassium [Cozaar -] 50 mg PO DAILY #30 tablet 05/26/18 Morphine *Immediate Release* [Msir -] 30 mg PO Q4H PRN #90 tab MDD 120mg Morphine *Sr* [Ms Contin -] 45 mg PO BID #60 tablet.sa MDD 90 mg 05/26/18 Nystatin Powder [Nystop Powder -] 1 applic TP DAILY #1 bottle 05/26/18 Simvastatin [Zocor -] 40 mg PO HS #30 tablet 05/26/18 Tiotropium [place] [Spiriva Respimat] 2 puff IH DAILY #1 inhaler 05/26/18 predniSONE [Deltasone] 20 mg PO DAILY #5 tablet 05/26/18 Review of Systems - Review of Systems Constitutional: denies: Chills, Fever Eyes: denies: Recent Change in Vision HENT: denies: Nasal Congestion, Throat Pain Neck: denies: Stiffness, Tenderness Cardiovascular: reports: Edema, Shortness of Breath. denies: Chest Pain, Palpitations Respiratory: reports: Cough, SOB, Wheezing. denies: Hemoptysis Gastrointestinal: denies: Abdominal Pain, Nausea, Vomiting Genitourinary: denies: Dysuria, Hematuria Neurological: denies: Dizziness, Headache Endocrine: denies: Unexplained Weight Loss Physical Exam Vital Sings: Vital Signs Temperature 98.9 F 02/20/19 10:00 Pulse Rate 77 02/20/19 10:00 Respiratory Rate 18 02/20/19 10:00 Blood Pressure 94/51 L 02/20/19 10:00 O2 Sat by Pulse Oximetry (%) 98 02/20/19 04:46 Constitutional: Yes: Calm Eyes: Yes: Conjunctiva Clear, EOM Intact HENT: Yes: Atraumatic, Normocephalic Neck: Yes: Supple, Trachea Midline Cardiovascular: Yes: Regular Rate and Rhythm Respiratory: Yes: Diminished (decreased breath sounds at the bases) ...Clubbing: No Gastrointestinal: Yes: Normal Bowel Sounds, Soft. No: Tenderness Edema: Yes Neurological: Yes: Alert, Oriented Labs: CBC, BMP 02/20/19 05:50 02/20/19 05:40 Imaging - Results Chest X-ray: Report Reviewed, Image Reviewed (no infiltrates) Problem List - Problems (1) COPD exacerbation Code(s): J44.1 - CHRONIC OBSTRUCTIVE PULMONARY DISEASE W (ACUTE) EXACERBATION Assessment/Plan Acute COPD Exacerbation Acute on Chronic Diastolic Heart Failure CAD DM Morbid Obesity Likely Obstructive Sleep Apnea - IV lasix - monitor urine output, creatinine - daily weights - continue medrol - inhaled bronchodilators - O2 to keep SpO2 >90% - CPAP at night - glucose control while on systemic steroids - DVT prophylaxis Thank you for this consult Ran Broderick MD
[2019-02-20] MEDS ORDERED: INSULIN (NOVOLOG) ASPART 100 UNITS/ML 10ML VIAL ONE (18:13)
[2019-02-20] MEDS ORDERED: PT OWN MED DRAWER 7, Y5N ONE (18:14)
[2019-02-20] MEDS: ATORVASTATIN CA 20 MG TABLET (FP) PO SCH (22:01)
[2019-02-21] MEDS: HEPARIN NA (PORCINE) 5,000 UNITS/ML 1ML VIAL SQ SCH ×3 (06:43→22:38)
[2019-02-21] MEDS: INSULIN SLIDING SCALE (NOVOLOG) 1 VIAL SQ SCH ×3 (06:44→17:21)
[2019-02-21] MEDS: ALBUTEROL SO4 2.5/IPRATROPIUM 0.5 INH SOL 3 ML VIAL.NEB. NEB SCH ×4 (08:00→20:02)
[2019-02-21] MEDS ORDERED: DEXTROSE 5%-WATER - 50 ML IVPB ONE (09:00)
[2019-02-21] MEDS ORDERED: cefTRIAXone SODIUM 1 GM VIAL ONE (09:00)
[2019-02-21] MEDS: CEFTRIAXONE 1 GM in DEXTROSE 5%-WATER - 50 ML IVPB SCH (09:27)
[2019-02-21] MEDS: DOCUSATE SODIUM 100 MG CAPSULE (FP) PO SCH (09:28)
[2019-02-21] MEDS: LOSARTAN POTASSIUM 50 MG TABLET (FP) PO SCH (09:28)
[2019-02-21] MEDS: ASPIRIN 81 MG CHEWABLE TABLETS PO SCH (09:28)
[2019-02-21] MEDS: morphine SO4 SUSTAINED ACTING 30 MG TABLET.SA PO SCH (09:28)
[2019-02-21] MEDS: CALCIUM 500MG/VIT-D 200 UNITS COMBO TABLET (FP) PO SCH (09:28)
[2019-02-21] MEDS: FUROSEMIDE 40 MG/4 ML INJECTABLE VIAL IVPUSH SCH (09:28)
[2019-02-21] MEDS: methylPREDNISolone NA SUCC 40 MG/1 ML VIAL IVPUSH SCH ×2 (09:28→22:38)
[2019-02-21] MEDS: CLOPIDOGREL BISULFATE 75 MG TABLET (FP) PO SCH (09:28)
[2019-02-21] MEDS: amLODIPine BESYLATE 10 MG TABLET (FP) PO SCH (09:28)
[2019-02-21] MEDS: PANTOPRAZOLE 20 MG TABLET (FP) PO SCH (09:28)
[2019-02-21] MEDS: NYSTATIN POWDER 100,000 UNITS/GM - 15 GM TOPICAL POWDER TP SCH ×2 (09:29→22:42)
[2019-02-21] MEDS: GABAPENTIN 300 MG CAPSULE (FP) PO SCH ×3 (09:29→22:58)
--- NOTE | 2019-02-21 09:48 | EKG ---
Test Reason : Blood Pressure : / mmHG Vent. Rate : 078 BPM Atrial Rate : 078 BPM P-R Int : 202 ms QRS Dur : 068 ms QT Int : 354 ms P-R-T Axes : 053 024 025 degrees QTc Int : 403 ms NORMAL SINUS RHYTHM LOW VOLTAGE QRS POSSIBLE ANTEROLATERAL INFARCT (CITED ON OR BEFORE 19-MAY-2018) ABNORMAL ECG WHEN COMPARED WITH ECG OF 19-MAY-2018 16:41, NONSPECIFIC T WAVE ABNORMALITY NO LONGER EVIDENT IN ANTERIOR LEADS Confirmed by MD Karlos, Socrates ([id number]) on 02/21/2019 9:48:07 AM Referred By: Confirmed By:Socrates Everett MD
--- NOTE | 2019-02-21 10:47 | PN ---
Progress Note (short form) - Note Progress Note: PULMONARY States breathing is better today. Less cough. Vital Signs Period Temp Pulse Resp BP Sys/Gottlieb Pulse Ox Last 24 Hr 98 F-98.6 F 75-88 18-20 102-121/52-71 96 Intake & Output 02/18/19 02/19/19 02/20/19 02/21/19 23:59 23:59 23:59 23:59 Intake Total 0 Output Total 440 100 Balance -440 -100 Weight 136.078 kg 150.593 kg 150.411 kg Gen: NAD at rest Heart: RRR Lung: scattered rhonchi Abd: soft, nontender Ext: + edema CBC, BMP 02/20/19 05:50 02/20/19 05:40 Active Medications Acetaminophen (Tylenol -) 650 mg PO Q6H PRN PRN Reason: PAIN LEVEL 1-5 Albuterol Sulfate (Ventolin 0.083% Nebulizer Soln -) 1 amp NEB Q4H PRN PRN Reason: SHORT OF BREATH/WHEEZING Albuterol/Ipratropium (Duoneb -) 1 amp NEB RQID [facility] Last Admin: 02/21/19 08:00 Dose: 1 amp Amlodipine Besylate (Norvasc -) 10 mg PO DAILY [facility] Last Admin: 02/21/19 09:28 Dose: 10 mg Aspirin (Asa -) 81 mg PO DAILY [facility] Last Admin: 02/21/19 09:28 Dose: 81 mg Atorvastatin Calcium (Lipitor -) 20 mg PO HS [facility] Last Admin: 02/20/19 22:01 Dose: Not Given Calcium Carbonate/Cholecalciferol (Os-Jorge 500+D -) 2 tab PO DAILY [facility] Last Admin: 02/21/19 09:28 Dose: 2 tab Clopidogrel Bisulfate (Plavix -) 75 mg PO DAILY [facility] Last Admin: 02/21/19 09:28 Dose: 75 mg Docusate Sodium (Colace -) 300 mg PO DAILY [facility] Last Admin: 02/21/19 09:28 Dose: 300 mg Furosemide (Lasix Injection -) 40 mg IVPUSH DAILY [facility] Last Admin: 02/21/19 09:28 Dose: 40 mg Gabapentin (Neurontin -) 300 mg PO BID [facility] Last Admin: 02/21/19 09:29 Dose: Not Given Guaifenesin (Robitussin -) 10 ml PO Q6H PRN PRN Reason: COUGH Heparin Sodium (Porcine) (Heparin -) 5,000 unit SQ TID [facility] Last Admin: 02/21/19 06:43 Dose: 5,000 unit Ceftriaxone Sodium 1 gm/ (Dextrose) 50 mls @ 100 mls/hr IVPB DAILY [facility] Last Admin: 02/21/19 09:27 Dose: 100 mls/hr Insulin Aspart (Novolog Vial Sliding Scale -) 1 vial SQ TIDAC [facility]; Protocol Last Admin: 02/21/19 06:44 Dose: Not Given Losartan Potassium (Cozaar -) 50 mg PO DAILY [facility] Last Admin: 02/21/19 09:28 Dose: 50 mg Methylprednisolone Sodium Succinate (Solu-Medrol -) 40 mg IVPUSH BID [facility] Last Admin: 02/21/19 09:28 Dose: 40 mg Morphine Sulfate (Msir -) 15 mg PO Q4H PRN PRN Reason: BREAKTHROUGH PAIN Morphine Sulfate (Ms Contin -) 30 mg PO BID [facility] Stop: 02/26/19 09:59 Last Admin: 02/21/19 09:28 Dose: Not Given Nystatin (Nystop Powder -) 1 applic TP BID [facility] Last Admin: 02/21/19 09:29 Dose: 1 applic Pantoprazole Sodium (Protonix -) 20 mg PO DAILY [facility] Last Admin: 02/21/19 09:28 Dose: 20 mg A/P Acute COPD Exacerbation Acute on Chronic Diastolic Heart Failure CAD DM Morbid Obesity Likely Obstructive Sleep Apnea - continue lasix - monitor urine output, creatinine - daily weights - continue medrol - inhaled bronchodilators - O2 to keep SpO2 >90% - CPAP at night - glucose control while on systemic steroids - DVT prophylaxis Problem List - Problems (1) COPD exacerbation Code(s): J44.1 - CHRONIC OBSTRUCTIVE PULMONARY DISEASE W (ACUTE) EXACERBATION
--- NOTE | 2019-02-21 14:20 | PN ---
Progress Note, Physician Chief Complaint: Pt A&Ox3; SOB; no chest pain. History of Present Illness: The patient is a 73 year old white female with a past medical history of morbid obesity, CAD s/p stents, HTN, HLD, COPD/?asthma, history of MRSA, OA, diabetes, now here today for evaluation of cough. The patient reports that she has had a productive cough for the past few days. She also reports nausea, vomiting, and diarrhea but states that these have been chronic and intermittent. Patient notes chronic lower extremity edema but states that it is worse today. Patient denies headache, lightheadedness. Denies fever, chills. Denies chest pain, shortness of breath. Denies diarrhea. Allergies: metoprolol, metronidazole PCP: Vinicio Leahy - Current Medication List Current Medications: Active Medications Acetaminophen (Tylenol -) 650 mg PO Q6H PRN PRN Reason: PAIN LEVEL 1-5 Albuterol Sulfate (Ventolin 0.083% Nebulizer Soln -) 1 amp NEB Q4H PRN PRN Reason: SHORT OF BREATH/WHEEZING Albuterol/Ipratropium (Duoneb -) 1 amp NEB RQID [facility] Last Admin: 02/21/19 12:00 Dose: 1 amp Amlodipine Besylate (Norvasc -) 10 mg PO DAILY [facility] Last Admin: 02/21/19 09:28 Dose: 10 mg Aspirin (Asa -) 81 mg PO DAILY [facility] Last Admin: 02/21/19 09:28 Dose: 81 mg Atorvastatin Calcium (Lipitor -) 20 mg PO HS [facility] Last Admin: 02/20/19 22:01 Dose: Not Given Calcium Carbonate/Cholecalciferol (Os-Jorge 500+D -) 2 tab PO DAILY [facility] Last Admin: 02/21/19 09:28 Dose: 2 tab Clopidogrel Bisulfate (Plavix -) 75 mg PO DAILY [facility] Last Admin: 02/21/19 09:28 Dose: 75 mg Docusate Sodium (Colace -) 300 mg PO DAILY [facility] Last Admin: 02/21/19 09:28 Dose: 300 mg Furosemide (Lasix Injection -) 40 mg IVPUSH DAILY [facility] Last Admin: 02/21/19 09:28 Dose: 40 mg Gabapentin (Neurontin -) 300 mg PO BID [facility] Last Admin: 02/21/19 09:29 Dose: Not Given Guaifenesin (Robitussin -) 10 ml PO Q6H PRN PRN Reason: COUGH Heparin Sodium (Porcine) (Heparin -) 5,000 unit SQ TID [facility] Last Admin: 02/21/19 14:10 Dose: 5,000 unit Ceftriaxone Sodium 1 gm/ (Dextrose) 50 mls @ 100 mls/hr IVPB DAILY [facility] Last Admin: 02/21/19 09:27 Dose: 100 mls/hr Insulin Aspart (Novolog Vial Sliding Scale -) 1 vial SQ TIDAC [facility]; Protocol Last Admin: 02/21/19 12:01 Dose: Not Given Losartan Potassium (Cozaar -) 50 mg PO DAILY [facility] Last Admin: 02/21/19 09:28 Dose: 50 mg Methylprednisolone Sodium Succinate (Solu-Medrol -) 40 mg IVPUSH BID [facility] Last Admin: 02/21/19 09:28 Dose: 40 mg Morphine Sulfate (Msir -) 15 mg PO Q4H PRN PRN Reason: BREAKTHROUGH PAIN Morphine Sulfate (Ms Contin -) 30 mg PO BID [facility] Stop: 02/26/19 09:59 Last Admin: 02/21/19 09:28 Dose: Not Given Nystatin (Nystop Powder -) 1 applic TP BID [facility] Last Admin: 02/21/19 09:29 Dose: 1 applic Pantoprazole Sodium (Protonix -) 20 mg PO DAILY [facility] Last Admin: 02/21/19 09:28 Dose: 20 mg - Objective Vital Signs: Vital Signs Temperature 98.6 F 02/21/19 13:50 Pulse Rate 86 02/21/19 13:50 Respiratory Rate 20 02/21/19 13:50 Blood Pressure 109/41 L 02/21/19 13:50 O2 Sat by Pulse Oximetry (%) 96 02/20/19 21:00 Constitutional: Yes: Anxious, Obese Eyes: Yes: WNL HENT: Yes: WNL Neck: Yes: WNL Cardiovascular: Yes: S1, S2, S4 Respiratory: Yes: Diminished, SOB Gastrointestinal: Yes: Soft ...Rectal Exam: Yes: Deferred Genitourinary: No: Anuria Breast(s): Yes: WNL Musculoskeletal: Yes: Joint Stiffness, Muscle Weakness Edema: Yes Edema: LLE: 1+, RLE: 1+ Peripheral Pulses WNL: Yes Neurological: Yes: Alert, Oriented, Weakness Psychiatric: Yes: Alert, Oriented Labs: CBC, BMP 02/20/19 05:50 02/20/19 05:40 INR, PTT INR 1.10 (0.83-1.09) H 02/19/19 21:07 Abnormal Lab Results 02/23/19 02/24/19 02/24/19 20:50 10:10 10:10 WBC 10.3 H RDW 16.9 H Absolute Neuts (auto) 9.2 H Neutrophils % 89.1 H Neutrophils % (Manual) 91.1 H Lymphocytes % 6.5 L D Lymphocytes % (Manual) 1.0 L D Monocytes % 3.0 L ABG pH 7.15 L* ABG pCO2 at Pt Temp 79.8 H* ABG pO2 at Pt Temp 76.6 L ABG O2 Sat (Measured) 93.0 L ABG Base Excess -2.9 L Potassium 5.5 H BUN 71.0 H Creatinine 2.3 H Random Glucose 162 H Phosphorus 5.4 H Total Protein 5.0 L Albumin 2.4 L - ....Imaging Chest X-ray: Image Reviewed EKG: Image Reviewed Problem List - Problems (1) Diastolic CHF Assessment/Plan: No JVD; no infiltrate on CXR. Will discontinue furosemide to avoid renal compromise. Repeat ECHO (04/2018 ECHO showed normal LVEF, but evaluation of valves could not be made). Code(s): I50.30 - UNSPECIFIED DIASTOLIC (CONGESTIVE) HEART FAILURE (2) Renal insufficiency Assessment/Plan: Dada discontinue furosemide (Cr 1.1 last months; now rising to 1.9; no signs of acute CHF). Code(s): N28.9 - DISORDER OF KIDNEY AND URETER, UNSPECIFIED (3) Sleep apnea Assessment/Plan: On nightly CPAP sleep studies,, if not done already, per pulmonoary. Code(s): G47.30 - SLEEP APNEA, UNSPECIFIED (4) Anxiety and depression Code(s): F41.9 - ANXIETY DISORDER, UNSPECIFIED; F32.9 - MAJOR DEPRESSIVE DISORDER, SINGLE EPISODE, UNSPECIFIED (5) HTN (hypertension) Code(s): I10 - ESSENTIAL (PRIMARY) HYPERTENSION Qualifiers: (6) Hyperlipidemia Assessment/Plan: f/u lipid profile Code(s): E78.5 - HYPERLIPIDEMIA, UNSPECIFIED (7) Morbid obesity Assessment/Plan: pt has had this condition for years, with attendant increase in cardiac and other health risks. Borderline elevateed HGBA1c 05/24; will repeat.(Likely exacerbated by steroids). Code(s): E66.01 - MORBID (SEVERE) OBESITY DUE TO EXCESS CALORIES (8) Pericardial effusion Code(s): I31.3 - PERICARDIAL EFFUSION (NONINFLAMMATORY) (9) Sacral decubitus ulcer, stage II Code(s): L89.152 - PRESSURE ULCER OF SACRAL REGION, STAGE 2 (10) Cough Code(s): R05 - COUGH (11) Urinary tract infection Assessment/Plan: On antibiotics. Maintain fluids. Code(s): N39.0 - URINARY TRACT INFECTION, SITE NOT SPECIFIED Qualifiers: Urinary tract infection type: site unspecified Hematuria presence: without hematuria Qualified Code(s): N39.0 - Urinary tract infection, site not specified
[2019-02-21] MEDS ORDERED: VANCOMYCIN 1 GM in D5W (PRE-DOCKED) 1,000 MG/250 ML IVPB ONE (17:34)
[2019-02-21] MEDS ORDERED: morphine SULFATE IMMEDIATE RELEASE 30 MG TAB PO PRN ×2 (17:38→18:00)
--- NOTE | 2019-02-21 17:59 | PN ---
Progress Note (short form) - Note Progress Note: 73 yo lady multiple medical problems including morbid obesity, Type 2 DM, CAD, HTN, high cholesterol, NIKHIL, COPD, OA, chronic pain syndrome not significantly different from admission CXR no infiltrate of failure-poor quality Vital Signs Period Temp Pulse Resp BP Sys/Gottlieb Pulse Ox Last 24 Hr 97.5 F-98.6 F 75-90 20-20 109-132/41-87 84-96 morbidly obese s1s2 rrr lungs diffuse rhonchi anteriorly, poor expectoration abd obese tinea, erythema under abdominal flap and groin chronic stasis dermatitis bilateral lower ext. tr edema bedbound, did not walk for over 1 year tearful, anxious oriented x3, but does have dependent jerking movements and slightly slurred speech, nods off often acute copd exacerbation NIKHIL component of bronchitis? UTI too much pain medicine CKD-acute on chr. baseline creat~1.2 gram pos cocci in anaerobic bottlex1 on blood culture acute CHF metabolic encephalopathy due to acute condition and narcotics dm htn cad morbid obesity iv steroid iv ceftriaxone vancomycin x1 ID evaluation requested need to f/up culture results, contamination? otherwise does not appear to be septic bipap at night PT eval-pt wants to go home, needs social service f/up gi/dvt prophylaxis further decrease narcotic dosing chest PT
[2019-02-21] MEDS ORDERED: VANCOMYCIN 1 GRAM (PRE-DOCKED) 1,000 MG/250 ML BAG IVPB ONE (18:15)
[2019-02-21] MEDS: VANCOMYCIN 1 GRAM (PRE-DOCKED) 1,000 MG/250 ML BAG IVPB SCH (22:38)
[2019-02-21] MEDS: morphine SO4 SUSTAINED ACTING 15 MG TABLET.SA PO SCH ×2 (22:39→22:57)
[2019-02-21] MEDS: ATORVASTATIN CA 20 MG TABLET (FP) PO SCH (22:39)
[2019-02-22] MEDS: VANCOMYCIN 1 GRAM (PRE-DOCKED) 1,000 MG/250 ML BAG IVPB SCH (06:44)
[2019-02-22] MEDS: HEPARIN NA (PORCINE) 5,000 UNITS/ML 1ML VIAL SQ SCH ×3 (06:44→22:09)
[2019-02-22] MEDS: INSULIN SLIDING SCALE (NOVOLOG) 1 VIAL SQ SCH ×2 (06:53→11:54)
[2019-02-22 07:54] LABS: BASO % 0.2 % (0-2.0); EOS % 0.6 % (0-4.5); HEMATOCRIT 32.7 % (32.4-45.2); HEMOGLOBIN 10.8 GM/dL (10.7-15.3); LYMPH % 3.4 % (8-40); MCH 29.1 pg (25.7-33.7); MCHC 33.2 g/dl (32.0-36.0); MEAN CELL VOLUME 87.7 fl (80-96); MEAN PLT VOLUME 8.4 fl (7.5-11.1); NEUT % 93.8 % (42.8-82.8); PLATELET COUNT 244 K/MM3 (134-434); RBC 3.73 M/mm3 (3.60-5.2); RDW 17.5 % (11.6-15.6)
--- NOTE | 2019-02-22 08:05 | PN ---
Progress Note (short form) - Note Progress Note: 73 yo lady multiple medical problems including morbid obesity, Type 2 DM, CAD, HTN, high cholesterol, NIKHIL, COPD, OA, chronic pain syndrome CBC, BMP 02/22/19 06:38 02/22/19 06:38 Vital Signs Period Temp Pulse Resp BP Sys/Gottlieb Pulse Ox Last 24 Hr 97.5 F-98.8 F 74-92 20-20 109-132/41-87 84-93 morbidly obese s1s2 rrr lungs diffuse rhonchi anteriorly, poor expectoration abd obese tinea, erythema under abdominal flap and groin chronic stasis dermatitis bilateral lower ext. tr edema bedbound, did not walk for over 1 year tearful, anxious oriented x3, but does have dependent jerking movements and slightly slurred speech, nods off often acute copd exacerbation NIKHIL component of bronchitis? UTI too much pain medicine CKD-acute on chr. baseline creat~1.2 gram pos cocci in anaerobic bottlex1 on blood culture acute CHF metabolic encephalopathy due to acute condition and narcotics dm htn cad morbid obesity iv steroid iv ceftriaxone iv vancomycin repeat bcx have been drawn ID evaluation requested need to f/up culture results, contamination? otherwise does not appear to be septic has not gotten any morphine for 48 hours at least-will stop order check abg start iv hydration bipap at night-pt is refusing PT eval-pt wants to go home, needs social service f/up gi/dvt prophylaxis chest PT
[2019-02-22 08:18] LABS: ALBUMIN 2.2 g/dl (3.4-5.0); BILIRUBIN,TOTAL 0.3 mg/dL (0.2-1); BLOOD UREA NITROGEN 59.2 mg/dL (7-18); CALCIUM 8.3 mg/dL (8.5-10.1); CREATININE 2.5 mg/dL (0.55-1.3); POTASSIUM 5.6 mmol/L (3.5-5.1); TOT PROT 4.7 g/dl (6.4-8.2)
[2019-02-22] MEDS ORDERED: ACETAMINOPHEN 325 MG TABLET (FP) PO PRN (08:23)
[2019-02-22] MEDS ORDERED: SODIUM CHLORIDE 1,000 ML IV SCH (08:30)
[2019-02-22] MEDS ORDERED: oxyCODONE HCL 5 MG TABLET PO PRN (08:33)
[2019-02-22] MEDS ORDERED: DEXTROSE 5%-WATER - 50 ML IVPB ONE (09:06)
[2019-02-22] MEDS ORDERED: cefTRIAXone SODIUM 1 GM VIAL ONE (09:06)
[2019-02-22] MEDS: ALBUTEROL SO4 2.5/IPRATROPIUM 0.5 INH SOL 3 ML VIAL.NEB. NEB SCH ×4 (09:20→20:57)
[2019-02-22] MEDS: CEFTRIAXONE 1 GM in DEXTROSE 5%-WATER - 50 ML IVPB SCH (09:23)
[2019-02-22 09:40] LABS: ARTERIAL BLD GAS O2 SATURATION 96.6 % (95-98); ARTERIAL BLOOD GAS PCO2 65.9 mmHg (35-45); ARTERIAL BLOOD GAS PO2 93.8 mmHg (80-100); ARTERIAL BLOOD GAS pH 7.21 (7.35-7.45)
[2019-02-22 09:44] LABS: ALLENS TEST POSITIVE
[2019-02-22] MEDS: DOCUSATE SODIUM 100 MG CAPSULE (FP) PO SCH (10:07)
[2019-02-22] MEDS: CALCIUM 500MG/VIT-D 200 UNITS COMBO TABLET (FP) PO SCH (10:07)
[2019-02-22] MEDS: ASPIRIN 81 MG CHEWABLE TABLETS PO SCH (10:07)
[2019-02-22] MEDS: PANTOPRAZOLE 20 MG TABLET (FP) PO SCH (10:07)
[2019-02-22] MEDS: CLOPIDOGREL BISULFATE 75 MG TABLET (FP) PO SCH (10:07)
[2019-02-22] MEDS: LOSARTAN POTASSIUM 50 MG TABLET (FP) PO SCH (10:08)
[2019-02-22] MEDS: NYSTATIN POWDER 100,000 UNITS/GM - 15 GM TOPICAL POWDER TP SCH ×2 (10:08→22:11)
[2019-02-22] MEDS: amLODIPine BESYLATE 10 MG TABLET (FP) PO SCH (10:08)
[2019-02-22] MEDS: methylPREDNISolone NA SUCC 40 MG/1 ML VIAL IVPUSH SCH ×2 (10:08→18:07)
[2019-02-22] MEDS: GABAPENTIN 300 MG CAPSULE (FP) PO SCH ×2 (10:08→22:09)
[2019-02-22 10:58] LABS: ANISOCYTOSIS 0; MACROCYTOSIS 0; PLATELET ESTIMATE NORMAL
--- NOTE | 2019-02-22 11:41 | PN ---
Progress Note (short form) - Note Progress Note: ID consult dictated imp/reccd 73 yo morbidly obese female, with pmh of COPD, CHF admitted from home with cough and chest congestion on 02/19 one for 4 blood culture bottles with coag negative staph no fevers reports she is on chronic antibiotics at home?- has history of chronically infected right knee replacement recent prior history of ecoli esbl bacteremia Mar 2018 one of 4 bottles with coag negative staph- suspect contaminant repeat blood cultures sent will d/c vancomycin she is on ceftriaxone for UTI refusing bipap pulmonary f/u pending should resume her suppressive antibiotics for her knee as well at time of discharge Problem List - Problems (1) Bacteremia Code(s): R78.81 - BACTEREMIA (2) CHF exacerbation Code(s): I50.9 - HEART FAILURE, UNSPECIFIED Qualifiers: Heart failure type: unspecified Qualified Code(s): I50.9 - Heart failure, unspecified (3) COPD exacerbation Code(s): J44.1 - CHRONIC OBSTRUCTIVE PULMONARY DISEASE W (ACUTE) EXACERBATION (4) Chronic infection of prosthetic knee Code(s): T84.59XA - INFECT/INFLM REACTION DUE TO OTH INTERNAL JOINT PROSTH, INIT ; Z96.659 - PRESENCE OF UNSPECIFIED ARTIFICIAL KNEE JOINT
--- NOTE | 2019-02-22 13:36 | CONSULT ---
Consult Consult Specialty:: Nephrology Reason for Consultation:: SANGITA and hyperkalemia - History of Present Illness Chief Complaint: cough and shortness of breath History of Present Illness: Pt is a 73 year old female with pmhx of DM, ashtma, obesity, and CAD who presented to the ER wtih cough and congestion. She was found to have elevatred creatinine and I was called to evaluate her. She does have history of CKD. She complains of lower ext edema. She denies dysuria. She denies fevers or chills. She is not a great historian. - History Source History Provided By: Patient, Medical Record - Past Medical History Cardio/Vascular: Yes: CAD (s/p cardiac stents, last cath in Mar 2014 showed nonobstructive disease), HTN, Hyperlipdemia Pulmonary: Yes: COPD Gastrointestinal: Yes: Constipation Renal/: Yes: Renal Inusuff ...: No Infectious Disease: Yes: MRSA (h/o MRSA several years ago) Psych: Yes: Anxiety, Panic Musculoskeletal: Yes: Osteoarthritis Endocrine: Yes: Diabetes Mellitus, Other (Morbid Obesity) - Past Surgical History Past Surgical History: Yes: Cholecystectomy, Hysterectomy, Joint Replacement (R knee as above) - Alcohol/Substance Use Hx Alcohol Use: No History of Substance Use: reports: None - Smoking History Smoking history: Never smoked Have you smoked in the past 12 months: No Aproximately how many cigarettes per day: 0 If you are a former smoker, when did you quit?: 15 years ago - Social History ADL: Family Assistance History of Recent Travel: No Home Medications - Allergies Allergies/Adverse Reactions: Allergies Allergy/AdvReac Type Severity Reaction Status Date / Time metoprolol Allergy Verified 02/19/19 19:54 metronidazole Allergy Verified 02/19/19 19:54 - Home Medications Home Medications: Ambulatory Orders Aspirin [ASA -] 81 mg PO DAILY 10/05/13 Calcium 500Mg/Vit-D 200 Units [Os-Jorge 500+D -] 2 tab PO DAILY tab 01/24/18 Docusate Sodium [Colace -] 300 mg PO DAILY 03/30/18 Guaifenesin [Robitussin -] 10 ml PO Q6H PRN cup 04/19/18 Insulin Sliding Scale [Novolog Vial Sliding Scale -] 1 vial SQ ACHS units 04/19 Pantoprazole Sodium [Protonix -] 20 mg PO DAILY tablet.ec 04/19/18 Amlodipine Besylate [Norvasc -] 10 mg PO DAILY #30 tablet 05/26/18 Ammonium Lactate Lotion [Lac-Hydrin 12] 1 applic TP DAILY PRN #1 bottle Bacitracin - [Bacitracin Topical Ointment -] 1 applic TP DAILY #1 tube 05/26/18 Clopidogrel Bisulfate [Plavix -] 75 mg PO DAILY #30 tablet 05/26/18 Furosemide [Lasix -] 40 mg PO DAILY #30 tablet 05/26/18 Gabapentin [Neurontin -] 300 mg PO BID #60 capsule 05/26/18 Guaifenesin Dm [Mucinex Dm -] 2 tablet PO BID tab.er.12h 05/26/18 Losartan Potassium [Cozaar -] 50 mg PO DAILY #30 tablet 05/26/18 Morphine *Immediate Release* [Msir -] 30 mg PO Q4H PRN #90 tab MDD 120mg Morphine *Sr* [Ms Contin -] 45 mg PO BID #60 tablet.sa MDD 90 mg 05/26/18 Nystatin Powder [Nystop Powder -] 1 applic TP DAILY #1 bottle 05/26/18 Simvastatin [Zocor -] 40 mg PO HS #30 tablet 05/26/18 Tiotropium [place] [Spiriva Respimat] 2 puff IH DAILY #1 inhaler 05/26/18 predniSONE [Deltasone] 20 mg PO DAILY #5 tablet 05/26/18 Family Medical History Family History: Denies Review of Systems - Review of Systems Constitutional: reports: Malaise Eyes: reports: No Symptoms Neck: reports: No Symptoms Cardiovascular: reports: Edema Respiratory: reports: Cough, SOB, SOB on Exertion Gastrointestinal: reports: No Symptoms Musculoskeletal: reports: No Symptoms Integumentary: reports: No Symptoms Neurological: reports: No Symptoms Endocrine: reports: No Symptoms Hematology/Lymphatic: reports: No Symptoms Psychiatric: reports: No Symptoms Physical Exam Vital Signs: Vital Signs Temperature 98.0 F 02/22/19 10:00 Pulse Rate 70 02/22/19 10:00 Respiratory Rate 20 02/22/19 10:00 Blood Pressure 106/57 L 02/22/19 10:00 O2 Sat by Pulse Oximetry (%) 97 02/22/19 09:00 Constitutional: Yes: Calm Eyes: Yes: Conjunctiva Clear HENT: Yes: Atraumatic Cardiovascular: Yes: S1, S2 Respiratory: Yes: CTA Bilaterally Gastrointestinal: Yes: Soft Renal/: Yes: Cadena Present Edema: Yes Edema: LUE: 1+, RUE: 1+, LLE: 1+, RLE: 1+ Neurological: Yes: Oriented Psychiatric: Yes: Oriented Labs: CBC, BMP 02/22/19 06:38 02/22/19 06:38 Laboratory Tests 03/30/18 04/15/18 04/16/18 11:25 07:36 05:30 Sodium Potassium Creatinine 1.8 H 1.6 H 1.5 H 05/19/18 05/28/18 02/19/19 17:14 06:40 21:07 Sodium Potassium Creatinine 1.6 H 1.3 1.7 H 02/20/19 02/22/19 05:40 06:38 Sodium 134 L Potassium 5.6 H Creatinine 1.9 H 2.5 H Imaging - Results Chest X-ray: Report Reviewed Problem List - Problems (1) Hyperkalemia Code(s): E87.5 - HYPERKALEMIA (2) CHF (congestive heart failure) Code(s): I50.9 - HEART FAILURE, UNSPECIFIED Qualifiers: Heart failure type: unspecified Heart failure chronicity: unspecified Qualified Code(s): I50.9 - Heart failure, unspecified (3) Renal insufficiency Code(s): N28.9 - DISORDER OF KIDNEY AND URETER, UNSPECIFIED Assessment/Plan Current Medications Generic Name Dose Route Start Last Admin Trade Name Freq PRN Reason Stop Dose Admin Acetaminophen 650 mg 02/19/19 23:47 Tylenol - PO Q6H PRN PAIN LEVEL 1-5 Acetaminophen 650 mg 02/22/19 08:23 Tylenol - PO Q6H PRN PAIN LEVEL 7 - 10 Albuterol Sulfate 1 amp 02/20/19 11:37 Ventolin 0.083% Nebulizer Soln - NEB Q4H PRN SHORT OF BREATH/WHEEZING Albuterol/Ipratropium 1 amp 02/20/19 08:00 02/21/19 20:02 Duoneb - NEB 1 amp RQID EFRAIN Administration Amlodipine Besylate 10 mg 02/20/19 10:00 02/22/19 10:08 Norvasc - PO Not Given DAILY EFRAIN Aspirin 81 mg 02/20/19 10:00 02/22/19 10:07 Asa - PO 81 mg DAILY EFRAIN Administration Atorvastatin Calcium 20 mg 02/20/19 22:00 02/21/19 22:39 Lipitor - PO 20 mg HS EFRAIN Administration Calcium Carbonate/Cholecalciferol 2 tab 02/20/19 10:00 02/22/19 10:07 Os-Jorge 500+D - PO 2 tab DAILY EFRAIN Administration Clopidogrel Bisulfate 75 mg 02/20/19 10:00 02/22/19 10:07 Plavix - PO 75 mg DAILY EFRAIN Administration Docusate Sodium 300 mg 02/20/19 10:00 02/22/19 10:07 Colace - PO 300 mg DAILY EFRAIN Administration Gabapentin 300 mg 02/20/19 10:00 02/22/19 10:08 Neurontin - PO Not Given BID EFRAIN Guaifenesin 10 ml 02/19/19 23:42 Robitussin - PO Q6H PRN COUGH Heparin Sodium (Porcine) 5,000 unit 02/20/19 06:00 02/22/19 06:44 Heparin - SQ 5,000 unit TID EFRAIN Administration Ceftriaxone Sodium 1 gm/ 50 mls @ 100 mls/hr 02/20/19 10:00 02/22/19 09:23 Dextrose IVPB 100 mls/hr DAILY EFRAIN Administration Sodium Chloride 1,000 mls @ 50 mls/hr 02/22/19 08:30 02/22/19 09:22 Normal Saline - IV 02/23/19 08:27 50 mls/hr ASDIR EFRAIN Administration Losartan Potassium 50 mg 02/20/19 10:00 02/22/19 10:08 Cozaar - PO Not Given DAILY EFRAIN Methylprednisolone Sodium Succinate 40 mg 02/20/19 10:00 02/22/19 10:08 Solu-Medrol - IVPUSH 40 mg BID EFRAIN Administration Nystatin 1 applic 02/20/19 10:00 02/22/19 10:08 Nystop Powder - TP 1 applic BID EFRAIN Administration Oxycodone HCl 10 mg 02/22/19 08:33 Roxicodone - PO Q6H PRN PAIN LEVEL 7 - 10 Pantoprazole Sodium 20 mg 02/20/19 10:00 02/22/19 10:07 Protonix - PO 20 mg DAILY EFRAIN Administration Impression 1. hyperkalemia 2. edema 3. chf 4. cough 5. morbid obesity 6. dm 7. asthma 8. cad Plan - will give lokelma - stop arb as potassium elevatd - check renal ultrasound - hold amlodipine as bp is low, also may contribute to lower ext edema - repeat cxr in am - check urine lytes and vice president of product marketing to calc fena
[2019-02-22] MEDS ORDERED: FUROSEMIDE 40 MG/4 ML INJECTABLE VIAL IVPUSH ONE (13:42)
--- NOTE | 2019-02-22 14:25 | CONS ---
INFECTIOUS DISEASE CONSULTATION DATE OF CONSULTATION: DATE OF DICTATION: 02/22/2019 HISTORY OF PRESENT ILLNESS: This is a 73-year-old woman who presents to the emergency room from home with 2 days of cough with clear sputum and chest congestion, no fevers or chills, worsening bilateral lower extremity edema. She is nonambulatory for at least 1 year at home. She has a history of CHF and COPD. She has a history of multiple revisions of a right knee prosthesis, which is apparently chronically infected, for which she is on oral antibiotic suppressive therapy. She was admitted and started on steroids, Lasix, and nebulizers. She had a Cadena placed in the ER, as well, and was started on ceftriaxone for a UTI. I am asked to see her for a positive blood culture. She currently wakens easily, but she is lethargic. She just had a blood gas done and was advised BiPAP which she is refusing. She denies abdominal pain or chest pain. PAST MEDICAL HISTORY: Notable for coronary artery disease, status post stents. She has a history of hypertension, hyperlipidemia, COPD, constipation, renal insufficiency, osteoarthritis. She has a history of chronically infected right total knee replacement, dating back to 2005. She has had 6 or 7 operations on that knee and has also been on chronic suppressive treatment. She is status post hysterectomy and cholecystectomy. She has a history in March 2018 of an E coli-ESBL bacteremia and she has had multiple E coli UTIs in the past. ALLERGIES: She is allergic to METOPROLOL and METRONIDAZOLE. SOCIAL HISTORY: She is a former smoker. She quit 15 years ago. She is nonambulatory and lives at home. MEDICATIONS: Include aspirin, calcium with vitamin D, Colace, insulin, Protonix, Norvasc, Lac-Hydrin, Plavix, Lasix, Neurontin, Cozaar, morphine, Zocor, and Spiriva. As well, she tells me, she is on oral antibiotics, but she does not know what. REVIEW OF SYSTEMS: As per HPI. FAMILY HISTORY: Not obtainable. PHYSICAL EXAMINATION: General: She is an obese woman in no acute distress. She is sleepy, but easily arousable. Vital Signs: Temperature is 98, pulse of 70, blood pressure 106/57, respiratory rate of 20. She is saturating 97% on 2 L. HEENT: She is normocephalic. Her eyes are anicteric. Neck: Supple. Lungs: Have diminished breath sounds at the bases. Heart: Regular rate and rhythm. Abdomen: Protuberant. She has multiple skin folds. Extremities: She has multiple surgical scars on the right lower extremity. Both legs have 2+ pitting edema. Genitourinary: She has a Cadena. LABORATORIES: White count is 12,000, hemoglobin 10.8, platelets are 244. Chemistries: BUN and creatinine are 59 and 2.5. LFTs are normal. Blood culture: One of 4 bottles is growing coagulase-negative staph. Repeat blood cultures have been sent. Urine culture is growing a sensitive E coli. Chest x-ray is clear. 1. In summary, this is a 73-year-old woman with I suspect a skin contaminant. Repeat blood cultures have been sent. I would stop her vancomycin. 2. She is on ceftriaxone for E coli UTI. 3. CHF, COPD, and CKD, per Pulmonary and Cardiology. She is currently refusing BiPAP. 4. She should resume her suppressive antibiotics for her knee, at the time of discharge. BRYCE CHERRY M.D. [id number]
--- NOTE | 2019-02-22 14:50 | PN ---
Progress Note, Physician History of Present Illness: 73 y/o female with PMH significant for DM, asthma, morbid obesity, CAD s/p stents, presenting today with congestion, wheezing and productive cough. Reports that 2 days ago she started having a productive cough with clear mucous and chest congestion. Denies chest pain or shortness of breath. Denies fever or chills. Reports intermittent NBNB vomiting over the past week. Denies abdominal pain. Reports bilateral lower extremity swelling worse than prior. - Current Medication List Current Medications: Active Medications Acetaminophen (Tylenol -) 650 mg PO Q6H PRN PRN Reason: PAIN LEVEL 1-5 Acetaminophen (Tylenol -) 650 mg PO Q6H PRN PRN Reason: PAIN LEVEL 7 - 10 Albuterol Sulfate (Ventolin 0.083% Nebulizer Soln -) 1 amp NEB Q4H PRN PRN Reason: SHORT OF BREATH/WHEEZING Albuterol/Ipratropium (Duoneb -) 1 amp NEB RQID [facility] Last Admin: 02/21/19 20:02 Dose: 1 amp Aspirin (Asa -) 81 mg PO DAILY [facility] Last Admin: 02/22/19 10:07 Dose: 81 mg Atorvastatin Calcium (Lipitor -) 20 mg PO HS [facility] Last Admin: 02/21/19 22:39 Dose: 20 mg Calcium Carbonate/Cholecalciferol (Os-Jorge 500+D -) 2 tab PO DAILY [facility] Last Admin: 02/22/19 10:07 Dose: 2 tab Clopidogrel Bisulfate (Plavix -) 75 mg PO DAILY [facility] Last Admin: 02/22/19 10:07 Dose: 75 mg Docusate Sodium (Colace -) 300 mg PO DAILY [facility] Last Admin: 02/22/19 10:07 Dose: 300 mg Gabapentin (Neurontin -) 300 mg PO BID [facility] Last Admin: 02/22/19 10:08 Dose: Not Given Guaifenesin (Robitussin -) 10 ml PO Q6H PRN PRN Reason: COUGH Heparin Sodium (Porcine) (Heparin -) 5,000 unit SQ TID [facility] Last Admin: 02/22/19 06:44 Dose: 5,000 unit Ceftriaxone Sodium 1 gm/ (Dextrose) 50 mls @ 100 mls/hr IVPB DAILY [facility] Last Admin: 02/22/19 09:23 Dose: 100 mls/hr Sodium Chloride (Normal Saline -) 1,000 mls @ 50 mls/hr IV ASDIR [facility] Stop: 02/23/19 08:27 Last Admin: 02/22/19 09:22 Dose: 50 mls/hr Methylprednisolone Sodium Succinate (Solu-Medrol -) 40 mg IVPUSH BID [facility] Last Admin: 02/22/19 10:08 Dose: 40 mg Nystatin (Nystop Powder -) 1 applic TP BID [facility] Last Admin: 02/22/19 10:08 Dose: 1 applic Oxycodone HCl (Roxicodone -) 10 mg PO Q6H PRN PRN Reason: PAIN LEVEL 7 - 10 Pantoprazole Sodium (Protonix -) 20 mg PO DAILY [facility] Last Admin: 02/22/19 10:07 Dose: 20 mg Sodium Zirconium Cyclosilicate (Lokelma) 10 gm PO DAILY [facility] Stop: 02/23/19 10:01 - Objective Vital Signs: Vital Signs Temperature 98.1 F 02/22/19 13:56 Pulse Rate 76 02/22/19 13:56 Respiratory Rate 20 02/22/19 13:56 Blood Pressure 107/53 L 02/22/19 13:56 O2 Sat by Pulse Oximetry (%) 97 02/22/19 09:00 Eyes: Yes: WNL, Conjunctiva Clear, EOM Intact HENT: Yes: WNL, Atraumatic, Normocephalic Neck: Yes: WNL, Supple, Trachea Midline Cardiovascular: Yes: WNL, Regular Rate and Rhythm Respiratory: Yes: WNL, Regular, CTA Bilaterally Gastrointestinal: Yes: WNL, Normal Bowel Sounds Genitourinary: Yes: WNL Musculoskeletal: Yes: WNL Extremities: Yes: WNL Edema: Yes Integumentary: Yes: WNL Neurological: Yes: WNL, Alert, Oriented ...Motor Strength: WNL Psychiatric: Yes: WNL Labs: CBC, BMP 02/22/19 06:38 02/22/19 06:38 INR, PTT INR 1.10 (0.83-1.09) H 02/19/19 21:07 Problem List - Problems (1) SANGITA (acute kidney injury) Code(s): N17.9 - ACUTE KIDNEY FAILURE, UNSPECIFIED (2) Acute respiratory failure with hypoxia and hypercapnia Code(s): J96.01 - ACUTE RESPIRATORY FAILURE WITH HYPOXIA; J96.02 - ACUTE RESPIRATORY FAILURE WITH HYPERCAPNIA (3) [id number] kidney injury Code(s): N17.9 - ACUTE KIDNEY FAILURE, UNSPECIFIED; N18.9 - CHRONIC KIDNEY DISEASE, UNSPECIFIED (4) CAD (coronary artery disease) Code(s): I25.10 - ATHSCL HEART DISEASE OF CIRCLE CORONARY ARTERY W/O ANG PCTRS Qualifiers: Coronary Disease-Associated Artery/Lesion type: [place] artery Associated angina: without angina (5) CHF exacerbation Code(s): I50.9 - HEART FAILURE, UNSPECIFIED Qualifiers: Heart failure type: unspecified Qualified Code(s): I50.9 - Heart failure, unspecified (6) COPD exacerbation Code(s): J44.1 - CHRONIC OBSTRUCTIVE PULMONARY DISEASE W (ACUTE) EXACERBATION (7) Cellulitis Code(s): L03.90 - CELLULITIS, UNSPECIFIED Qualifiers: Site of cellulitis: extremity Site of cellulitis of extremity: lower extremity Laterality: unspecified laterality Qualified Code(s): L03.119 - Cellulitis of unspecified part of limb (8) Chest pain Code(s): R07.9 - CHEST PAIN, UNSPECIFIED Qualifiers: Chest pain type: other chest pain Qualified Code(s): R07.89 - Other chest pain; R07.8 - Other chest pain (9) Chronic pain Code(s): G89.29 - OTHER CHRONIC PAIN Qualifiers: Chronic pain type: chronic pain syndrome Qualified Code(s): G89.4 - Chronic pain syndrome (10) Chronic renal insufficiency Code(s): N18.9 - CHRONIC KIDNEY DISEASE, UNSPECIFIED (11) Cough Code(s): R05 - COUGH (12) Dehydration Code(s): E86.0 - DEHYDRATION (13) Diabetes mellitus Code(s): E11.9 - TYPE 2 DIABETES MELLITUS WITHOUT COMPLICATIONS Qualifiers: Diabetes mellitus type: 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 (14) Dyslipidemia Code(s): E78.5 - HYPERLIPIDEMIA, UNSPECIFIED (15) Elevated troponin Code(s): R74.8 - ABNORMAL LEVELS OF OTHER SERUM ENZYMES (16) HTN (hypertension) Code(s): I10 - ESSENTIAL (PRIMARY) HYPERTENSION Qualifiers: (17) Hospital admission due to social situation Code(s): Z60.9 - PROBLEM RELATED TO SOCIAL ENVIRONMENT, UNSPECIFIED (18) Hyperlipidemia Code(s): E78.5 - HYPERLIPIDEMIA, UNSPECIFIED (19) Hypothyroid Code(s): E03.9 - HYPOTHYROIDISM, UNSPECIFIED (20) Infection of knee Code(s): [id number] - (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, congenital Code(s): 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 (22) Morbid obesity Code(s): E66.01 - MORBID (SEVERE) OBESITY DUE TO EXCESS CALORIES (23) Nausea & vomiting Code(s): R11.2 - NAUSEA WITH VOMITING, UNSPECIFIED Qualifiers: Vomiting type: bilious vomiting Qualified Code(s): R11.14 - Bilious vomiting (24) Obesity Code(s): E66.9 - OBESITY, UNSPECIFIED Qualifiers: Obesity type: due to excess calories Obesity classification: adult class 3 (BMI >= 40) Body mass index: BMI 60.0-69.9 (25) Pericardial effusion Code(s): I31.3 - PERICARDIAL EFFUSION (NONINFLAMMATORY) (26) Pericardial effusion Code(s): I31.3 - PERICARDIAL EFFUSION (NONINFLAMMATORY) (27) Renal insufficiency, mild Code(s): N28.9 - DISORDER OF KIDNEY AND URETER, UNSPECIFIED (28) Sacral decubitus ulcer, stage II Code(s): L89.152 - PRESSURE ULCER OF SACRAL REGION, STAGE 2 (29) Sepsis Code(s): A41.9 - SEPSIS, UNSPECIFIED ORGANISM Qualifiers: Sepsis type: sepsis due to unspecified organism Qualified Code(s): A41.9 - Sepsis, unspecified organism (30) Tinea Code(s): B35.9 - DERMATOPHYTOSIS, UNSPECIFIED (31) Urinary tract infection Code(s): N39.0 - URINARY TRACT INFECTION, SITE NOT SPECIFIED Qualifiers: Urinary tract infection type: site unspecified Hematuria presence: without hematuria Qualified Code(s): N39.0 - Urinary tract infection, site not specified (32) Vertigo Code(s): R42 - DIZZINESS AND GIDDINESS Assessment/Plan - Problems (1) Diastolic CHF Assessment/Plan: No JVD; no infiltrate on CXR. Will discontinue furosemide to avoid renal compromise. Repeat ECHO (04/2018 ECHO showed normal LVEF, but evaluation of valves could not be made). Code(s): I50.30 - UNSPECIFIED DIASTOLIC (CONGESTIVE) HEART FAILURE (2) Renal insufficiency Assessment/Plan: Dada discontinue furosemide (Cr 1.1 last months; now rising to 1.9; no signs of acute CHF). Code(s): N28.9 - DISORDER OF KIDNEY AND URETER, UNSPECIFIED (3) Sleep apnea Assessment/Plan: On nightly CPAP sleep studies,, if not done already, per pulmonoary. Code(s): G47.30 - SLEEP APNEA, UNSPECIFIED (4) Anxiety and depression Code(s): F41.9 - ANXIETY DISORDER, UNSPECIFIED; F32.9 - MAJOR DEPRESSIVE DISORDER, SINGLE EPISODE, UNSPECIFIED (5) HTN (hypertension) Code(s): I10 - ESSENTIAL (PRIMARY) HYPERTENSION Qualifiers: (6) Hyperlipidemia Assessment/Plan: f/u lipid profile Code(s): E78.5 - HYPERLIPIDEMIA, UNSPECIFIED (7) Morbid obesity Assessment/Plan: pt has had this condition for years, with attendant increase in cardiac and other health risks. Borderline elevateed HGBA1c 05/24; will repeat.(Likely exacerbated by steroids). Code(s): E66.01 - MORBID (SEVERE) OBESITY DUE TO EXCESS CALORIES (8) Pericardial effusion Code(s): I31.3 - PERICARDIAL EFFUSION (NONINFLAMMATORY) (9) Sacral decubitus ulcer, stage II Code(s): L89.152 - PRESSURE ULCER OF SACRAL REGION, STAGE 2 (10) Cough Code(s): R05 - COUGH (11) Urinary tract infection Assessment/Plan: On antibiotics. Maintain fluids. Code(s): N39.0 - URINARY TRACT INFECTION, SITE NOT SPECIFIED Qualifiers: Urinary tract infection type: site unspecified Hematuria presence: without hematuria Qualified Code(s): N39.0 - Urinary tract infection, site not specified
--- NOTE | 2019-02-22 15:22 | PN ---
Progress Note (short form) - Note Progress Note: PULMONARY States breathing is worse today. Not compliant with BiPAP. Vital Signs Period Temp Pulse Resp BP Sys/Gottlieb Pulse Ox Last 24 Hr 98.0 F-98.8 F 70-92 20-20 106-123/53-77 93-97 Gen: NAD at rest Heart: RRR Lung: scattered rhonchi Abd: soft, nontender Ext: + edema CBC, BMP 02/22/19 06:38 02/22/19 06:38 Active Medications Acetaminophen (Tylenol -) 650 mg PO Q6H PRN PRN Reason: PAIN LEVEL 1-5 Acetaminophen (Tylenol -) 650 mg PO Q6H PRN PRN Reason: PAIN LEVEL 7 - 10 Albuterol Sulfate (Ventolin 0.083% Nebulizer Soln -) 1 amp NEB Q4H PRN PRN Reason: SHORT OF BREATH/WHEEZING Albuterol/Ipratropium (Duoneb -) 1 amp NEB RQID [facility]S [facility]CLUDE 234 BEDS AT [facility] Last Admin: 02/21/19 20:02 Dose: 1 amp Aspirin (Asa -) 81 mg PO DAILY [facility] 234 BEDS [facility] Last Admin: 02/22/19 10:07 Dose: 81 mg Atorvastatin Calcium (Lipitor -) 20 mg PO HS [facility]S [facility]CLUDE 234 BEDS AT [facility] Last Admin: 02/21/19 22:39 Dose: 20 mg Calcium Carbonate/Cholecalciferol (Os-Jorge 500+D -) 2 tab PO DAILY [facility]CLUDE 234 BEDS AT [facility] Last Admin: 02/22/19 10:07 Dose: 2 tab Clopidogrel Bisulfate (Plavix -) 75 mg PO DAILY [facility]S [facility]CLUDE 234 BEDS AT [facility] Last Admin: 02/22/19 10:07 Dose: 75 mg Docusate Sodium (Colace -) 300 mg PO DAILY [facility]CLUDE 234 BEDS AT [facility] Last Admin: 02/22/19 10:07 Dose: 300 mg Gabapentin (Neurontin -) 300 mg PO BID [facility]S [facility]CLUDE 234 BEDS AT [facility] Last Admin: 02/22/19 10:08 Dose: Not Given Guaifenesin (Robitussin -) 10 ml PO Q6H PRN PRN Reason: COUGH Heparin Sodium (Porcine) (Heparin -) 5,000 unit SQ TID COUNTS [facility]CLUDE 234 BEDS AT [facility] Last Admin: 02/22/19 06:44 Dose: 5,000 unit Ceftriaxone Sodium 1 gm/ (Dextrose) 50 mls @ 100 mls/hr IVPB DAILY [facility]S [facility]CLUDE 234 BEDS AT [facility] Last Admin: 02/22/19 09:23 Dose: 100 mls/hr Sodium Chloride (Normal Saline -) 1,000 mls @ 50 mls/hr IV ASDIR COUNTS INCLUDE 234 BEDS AT THE [facility] Stop: 02/23/19 08:27 Last Admin: 02/22/19 09:22 Dose: 50 mls/hr Methylprednisolone Sodium Succinate (Solu-Medrol -) 40 mg IVPUSH BID COUNTS INCLUDE 234 BEDS AT [facility] Last Admin: 02/22/19 10:08 Dose: 40 mg Nystatin (Nystop Powder -) 1 applic TP BID COUNTS INCLUDE 234 BEDS AT [facility] Last Admin: 02/22/19 10:08 Dose: 1 applic Oxycodone HCl (Roxicodone -) 10 mg PO Q6H PRN PRN Reason: PAIN LEVEL 7 - 10 Pantoprazole Sodium (Protonix -) 20 mg PO DAILY [facility]S [facility]CLUDE 234 BEDS AT [facility] Last Admin: 02/22/19 10:07 Dose: 20 mg Sodium Zirconium Cyclosilicate (Lokelma) 10 gm PO DAILY [facility]S INCLUDE 234 BEDS AT [facility] Stop: 02/23/19 10:01 A/P Acute COPD Exacerbation Acute on Chronic Diastolic Heart Failure CAD DM Morbid Obesity Likely Obstructive Sleep Apnea - monitor urine output, creatinine - daily weights - continue medrol, will increase dose - inhaled bronchodilators - O2 to keep SpO2 >90% - CPAP at night - glucose control while on systemic steroids - DVT prophylaxis Problem List - Problems (1) COPD exacerbation Code(s): J44.1 - CHRONIC OBSTRUCTIVE PULMONARY DISEASE W (ACUTE) EXACERBATION
[2019-02-22] MEDS: SODIUM ZIRCONIUM CYCLOSILICATE (LOKELMA) 5 GM PACKET PO SCH (15:55)
[2019-02-22] MEDS: ATORVASTATIN CA 20 MG TABLET (FP) PO SCH (22:09)
[2019-02-23] MEDS: methylPREDNISolone NA SUCC 40 MG/1 ML VIAL IVPUSH SCH ×3 (01:54→22:32)
[2019-02-23] MEDS: HEPARIN NA (PORCINE) 5,000 UNITS/ML 1ML VIAL SQ SCH ×3 (06:41→22:32)
[2019-02-23] MEDS: ALBUTEROL SO4 2.5/IPRATROPIUM 0.5 INH SOL 3 ML VIAL.NEB. NEB SCH ×4 (07:39→20:50)
[2019-02-23 07:50] LABS: BASO % 0.2 % (0-2.0); EOS % 0.1 % (0-4.5); HEMOGLOBIN 10.6 GM/dL (10.7-15.3); MCH 29.2 pg (25.7-33.7); MCHC 33.1 g/dl (32.0-36.0); MEAN PLT VOLUME 8.4 fl (7.5-11.1); MONO % 1.7 % (3.8-10.2); PLATELET COUNT 216 K/MM3 (134-434); RBC 3.64 M/mm3 (3.60-5.2); RDW 17.2 % (11.6-15.6); WHITE BLOOD COUNT 9.4 K/mm3 (4.0-10.0)
[2019-02-23 08:20] LABS: ALBUMIN 2.3 g/dl (3.4-5.0); BILIRUBIN,TOTAL 0.3 mg/dL (0.2-1); BLOOD UREA NITROGEN 66.5 mg/dL (7-18); CREATININE 2.5 mg/dL (0.55-1.3); POTASSIUM 5.4 mmol/L (3.5-5.1); TOT PROT 4.9 g/dl (6.4-8.2)
[2019-02-23] MEDS ORDERED: ONDANSETRON 4 MG/2 ML VIAL IVPB PRN ×2 (08:28→17:14)
--- NOTE | 2019-02-23 08:29 | PN ---
Progress Note (short form) - Note Progress Note: CBC, BMP 02/23/19 06:10 02/23/19 06:10 Vital Signs Period Temp Pulse Resp BP Sys/Gottlieb Pulse Ox Last 24 Hr 98.0 F-98.8 F 70-86 20-20 106-136/53-67 94-96 morbidly obese s1s2 rrr lungs diffuse rhonchi anteriorly, poor expectoration abd obese tinea, erythema under abdominal flap and groin chronic stasis dermatitis bilateral lower ext. tr edema bedbound, did not walk for over 1 year increased lethargy, arousable but does not hold meaningful conversation on BIPAP at present worsening respiratory failure/hypoventilation NPO BIPAP stat ABG, CXR requested icu evaluation acute copd exacerbation NIKHIL component of bronchitis? UTI too much pain medicine CKD-acute on chr. baseline creat~1.2 staph coag neg. anaerobic bottlex1 on blood culture-contaminant acute CHF metabolic encephalopathy due to acute condition and narcotics dm htn cad morbid obesity iv steroid iv ceftriaxone repeat bcx have been drawn-negative to date iv hydration gi/dvt prophylaxis chest PT
[2019-02-23] MEDS ORDERED: FUROSEMIDE 40 MG/4 ML INJECTABLE VIAL IVPUSH ONE (09:30)
[2019-02-23 09:41] LABS: ARTERIAL BLD GAS O2 SATURATION 92.4 % (95-98); ARTERIAL BLOOD GAS BASE EXCESS -3.8 meq/l (-2-2); ARTERIAL BLOOD GAS PCO2 67.3 mmHg (35-45)
[2019-02-23] MEDS ORDERED: cefTRIAXone SODIUM 1 GM VIAL ONE (09:42)
[2019-02-23] MEDS ORDERED: DEXTROSE 5%-WATER - 50 ML IVPB ONE (09:42)
[2019-02-23 09:54] LABS: ALLENS TEST POSITIVE
[2019-02-23] MEDS: CEFTRIAXONE 1 GM in DEXTROSE 5%-WATER - 50 ML IVPB SCH (10:00)
[2019-02-23 10:42] LABS: ANISOCYTOSIS 0; MACROCYTOSIS 0; PLATELET ESTIMATE NORMAL
--- NOTE | 2019-02-23 10:48 | PN ---
Progress Note (short form) - Note Progress Note: PULMONARY c/o shortness of breath. ABG done showing acute respiratory acidosis. CXR with increased congestion. Vital Signs Period Temp Pulse Resp BP Sys/Gottlieb Pulse Ox Last 24 Hr 98.1 F-98.8 F 73-86 20-20 107-136/53-67 94-96 Gen: NAD at rest Heart: RRR Lung: scattered rhonchi Abd: soft, nontender Ext: + edema CBC, BMP 02/23/19 06:10 02/23/19 06:10 Active Medications Acetaminophen (Tylenol -) 650 mg PO Q6H PRN PRN Reason: PAIN LEVEL 1-5 Acetaminophen (Tylenol -) 650 mg PO Q6H PRN PRN Reason: PAIN LEVEL 7 - 10 Albuterol Sulfate (Ventolin 0.083% Nebulizer Soln -) 1 amp NEB Q4H PRN PRN Reason: SHORT OF BREATH/WHEEZING Albuterol/Ipratropium (Duoneb -) 1 amp NEB RQID [facility] Last Admin: 02/23/19 07:39 Dose: 1 amp Aspirin (Asa -) 81 mg PO DAILY [facility] Last Admin: 02/22/19 10:07 Dose: 81 mg Atorvastatin Calcium (Lipitor -) 20 mg PO HS [facility] Last Admin: 02/22/19 22:09 Dose: 20 mg Calcium Carbonate/Cholecalciferol (Os-Jorge 500+D -) 2 tab PO DAILY [facility] Last Admin: 02/22/19 10:07 Dose: 2 tab Clopidogrel Bisulfate (Plavix -) 75 mg PO DAILY [facility] Last Admin: 02/22/19 10:07 Dose: 75 mg Docusate Sodium (Colace -) 300 mg PO DAILY [facility] Last Admin: 02/22/19 10:07 Dose: 300 mg Gabapentin (Neurontin -) 300 mg PO BID [facility] Last Admin: 02/22/19 22:09 Dose: Not Given Guaifenesin (Robitussin -) 10 ml PO Q6H PRN PRN Reason: COUGH Heparin Sodium (Porcine) (Heparin -) 5,000 unit SQ TID [facility] Last Admin: 02/23/19 06:41 Dose: 5,000 unit Ceftriaxone Sodium 1 gm/ (Dextrose) 50 mls @ 100 mls/hr IVPB DAILY [facility] Last Admin: 02/22/19 09:23 Dose: 100 mls/hr Methylprednisolone Sodium Succinate (Solu-Medrol -) 60 mg IVPUSH Q8H-IV [facility] Last Admin: 02/23/19 09:45 Dose: 60 mg Nystatin (Nystop Powder -) 1 applic TP BID [facility] Last Admin: 02/22/19 22:11 Dose: 1 applic Ondansetron HCl (Zofran Injection) 8 mg IVPB Q8H PRN PRN Reason: NAUSEA Last Admin: 02/23/19 09:45 Dose: 8 mg Pantoprazole Sodium (Protonix -) 20 mg PO DAILY [facility] Last Admin: 02/22/19 10:07 Dose: 20 mg A/P Acute COPD Exacerbation Acute on Chronic Diastolic Heart Failure CAD DM Morbid Obesity Likely Obstructive Sleep Apnea - lasix - monitor urine output, creatinine - daily weights - continue medrol, will increase dose - inhaled bronchodilators - O2 to keep SpO2 >90% - BiPAP to assist in work of breathing and respiratory acidosis - glucose control while on systemic steroids - DVT prophylaxis - transfer to telemetry for continuous pulse oximetry monitoring Problem List - Problems (1) COPD exacerbation Code(s): J44.1 - CHRONIC OBSTRUCTIVE PULMONARY DISEASE W (ACUTE) EXACERBATION
--- NOTE | 2019-02-23 11:24 | CONSULT ---
Consultation: REQUESTING PROVIDER: Dr. Horner CONSULT REQUEST: We have been asked to medically evaluate this patient for acute hypercapneic respiratory failure. HISTORY OF PRESENT ILLNESS: 73F w/ pmhx of DM, asthma, morbid obesity, CAD s/p stents, CKD presented to the ED with complaints of congestion, wheezing, cough currently being treated for COPD/CHF exacerbation. Pt was admitted to medical floor and requested to be evaluated for worsening respiratory failure. Upon admission, pt was started on IV Solumedrol, Duonebs. She was found to have a UTI and started on IV Ceftriaxone. Additionally, due to hyperkalemia and SANGITA, she was evaluated by nephro and given IV Lasix. Upon my encounter, pt was AAOx3, laying in bed complaining of difficulty breathing. She was satting at 95% on 3L NC. An ABG was done in the morning that showed pH 7.20, pCO2 67.3, pO2 70, HCO3 25.1 (ABG on admission 7.21/65.9/93.8/25.4). She was placed on NIPPV last night, but per nurse, did not tolerate the mask well and was only intermittently on it. She continues to complain of difficulty breathing, speaks in short sentences, and has intermittent episodes of falling asleep mid-conversation. Pt denies previous intubation and states she follows up with Dr. Cordero as an outpatient. States she used to smoke 30 years ago, but could not quantify the amount. REVIEW OF SYSTEMS: CONSTITUTIONAL: fatigue Absent: fever, chills, diaphoresis, generalized weakness, malaise, loss of appetite, weight change HEENT: Absent: rhinorrhea, nasal congestion, throat pain, throat swelling, difficulty swallowing, mouth swelling, ear pain, eye pain, visual changes CARDIOVASCULAR: b/l leg swelling Absent: chest pain, syncope, palpitations, irregular heart rate, lightheadedness , peripheral edema RESPIRATORY: shortness of breath Absent: cough, shortness of breath, dyspnea with exertion, orthopnea, wheezing, stridor, hemoptysis GASTROINTESTINAL: Absent: abdominal pain, abdominal distension, nausea, vomiting, diarrhea, constipation, melena, hematochezia GENITOURINARY: Absent: dysuria, frequency, urgency, hesitancy, hematuria, flank pain, genital pain MUSCULOSKELETAL: Absent: myalgia, arthralgia, joint swelling, back pain, neck pain SKIN: Absent: rash, itching, pallor HEMATOLOGIC/IMMUNOLOGIC: Absent: easy bleeding, easy bruising, lymphadenopathy, frequent infections ENDOCRINE: Absent: unexplained weight gain, unexplained weight loss, heat intolerance, cold intolerance NEUROLOGIC: Absent: headache, focal weakness or paresthesias, dizziness, unsteady gait, seizure, mental status changes, bladder or bowel incontinence PSYCHIATRIC: Absent: anxiety, depression, suicidal or homicidal ideation, hallucinations. PHYSICAL EXAMINATION Vital Signs - 24 hr 02/22/19 02/22/19 02/22/19 13:56 19:22 21:00 Temperature 98.1 F 98.1 F Pulse Rate 76 78 Respiratory 20 20 20 Rate Blood Pressure 107/53 L 112/54 L O2 Sat by Pulse Oximetry (%) 02/22/19 02/23/19 02/23/19 22:00 06:13 07:38 Temperature 98.3 F 98.8 F Pulse Rate 86 73 Respiratory 20 20 Rate Blood Pressure 131/55 L 136/67 O2 Sat by Pulse 94 L Oximetry (%) 02/23/19 08:52 Temperature Pulse Rate Respiratory 20 Rate Blood Pressure O2 Sat by Pulse 96 Oximetry (%) GENERAL: Morbidly obese female, resting comfortably in bed. AAOx2 (person, place ). HEENT: AT/NC. EOMI. Dry mucus membranes. No JVD/LAD. No pharyngeal erythema. NECK: Normal range of motion, supple without lymphadenopathy, JVD, or masses. LUNGS: Poor respiratory effort, distant breath sounds. HEART: RRR. Normal S1, S2. No murmurs noted. ABDOMEN: Obese, soft/nontender/nondistended. MUSCULOSKELETAL: Normal range of motion at all joints. No bony deformities or tenderness. No CVA tenderness. UPPER EXTREMITIES: 2+ pulses, warm, well-perfused. No cyanosis. No clubbing. Cap refill <2 seconds. No peripheral edema. LOWER EXTREMITIES: 2+ pulses, warm, well-perfused. No calf tenderness. No peripheral edema. NEUROLOGICAL: Cranial nerves II-XII intact. Normal speech. Normal gait. PSYCHIATRIC: Cooperative. Good eye contact. Appropriate mood and affect. SKIN: Warm, dry, normal turgor, no rashes or lesions noted. Laboratory Results - last 24 hr 02/22/19 02/22/19 02/23/19 06:38 23:50 06:10 WBC 9.4 RBC 3.64 Hgb 10.6 L Hct 32.0 L MCV 88.0 MCH 29.2 MCHC 33.1 RDW 17.2 H Plt Count 216 MPV 8.4 Absolute Neuts (auto) 8.9 H Neutrophils % 95.0 H Neutrophils % (Manual) 89.2 H Band Neutrophils % 0.0 Lymphocytes % 3.0 L Lymphocytes % (Manual) 4.5 L D Monocytes % 1.7 L Monocytes % (Manual) 2 L Eosinophils % 0.1 D Eosinophils % (Manual) 1.8 D Basophils % 0.2 Basophils % (Manual) 0.0 Myelocytes % (Man) 0 Promyelocytes % (Man) 0 Blast Cells % (Manual) 0 Nucleated RBC % 0 Metamyelocytes 3 H D Hypochromia 0 Platelet Estimate Normal Polychromasia 0 Poikilocytosis 0 Anisocytosis 0 Microcytosis 0 Macrocytosis 0 Anticoagulation Therapy Puncture Site ABG pH ABG pCO2 at Pt Temp ABG pO2 at Pt Temp ABG HCO3 ABG O2 Sat (Measured) ABG O2 Content ABG Base Excess Sergey Test O2 Delivery Device Oxygen Flow Rate Vent Mode Vent Rate Mechanical Rate Pressure Support Vent Sodium 134 L Potassium 5.6 H Chloride 100 Carbon Dioxide 29 Anion Gap 5 L BUN 59.2 H Creatinine 2.5 H Est GFR (CKD-EPI)AfAm 21.53 Est GFR (CKD-EPI)NonAf 18.57 POC Glucometer Random Glucose 135 H Calcium 8.3 L Total Bilirubin 0.3 AST 22 ALT 17 Alkaline Phosphatase 97 Total Protein 4.7 L Albumin 2.2 L Ur Random Creatinine 67.0 02/23/19 02/23/19 02/23/19 06:10 06:13 09:19 WBC RBC Hgb Hct MCV MCH MCHC RDW Plt Count MPV Absolute Neuts (auto) Neutrophils % Neutrophils % (Manual) Band Neutrophils % Lymphocytes % Lymphocytes % (Manual) Monocytes % Monocytes % (Manual) Eosinophils % Eosinophils % (Manual) Basophils % Basophils % (Manual) Myelocytes % (Man) Promyelocytes % (Man) Blast Cells % (Manual) Nucleated RBC % Metamyelocytes Hypochromia Platelet Estimate Polychromasia Poikilocytosis Anisocytosis Microcytosis Macrocytosis Anticoagulation Therapy No Result Required. Puncture Site Left radial ABG pH 7.20 L ABG pCO2 at Pt Temp 67.3 H ABG pO2 at Pt Temp 70.0 L ABG HCO3 25.1 ABG O2 Sat (Measured) 92.4 L ABG O2 Content 15.9 ABG Base Excess -3.8 L Sergey Test Positive O2 Delivery Device Nasal Oxygen Flow Rate 2 jumpbasting canvas baster Vent Mode No Result Required. Vent Rate No Result Required. Mechanical Rate No Result Required. Pressure Support Vent No Result Required. Sodium 135 L Potassium 5.4 H Chloride 100 Carbon Dioxide 29 Anion Gap 6 L BUN 66.5 H Creatinine 2.5 H Est GFR (CKD-EPI)AfAm 21.53 Est GFR (CKD-EPI)NonAf 18.57 POC Glucometer 158 Random Glucose 157 H Calcium 8.0 L Total Bilirubin 0.3 AST 19 ALT 19 Alkaline Phosphatase 90 Total Protein 4.9 L Albumin 2.3 L Ur Random Creatinine Active Medications Acetaminophen (Tylenol -) 650 mg PO Q6H PRN PRN Reason: PAIN LEVEL 1-5 Acetaminophen (Tylenol -) 650 mg PO Q6H PRN PRN Reason: PAIN LEVEL 7 - 10 Albuterol Sulfate (Ventolin 0.083% Nebulizer Soln -) 1 amp NEB Q4H PRN PRN Reason: SHORT OF BREATH/WHEEZING Albuterol/Ipratropium (Duoneb -) 1 amp NEB RQID [facility] Last Admin: 02/23/19 07:39 Dose: 1 amp Aspirin (Asa -) 81 mg PO DAILY [facility] Last Admin: 02/22/19 10:07 Dose: 81 mg Atorvastatin Calcium (Lipitor -) 20 mg PO HS [facility] Last Admin: 02/22/19 22:09 Dose: 20 mg Calcium Carbonate/Cholecalciferol (Os-Jorge 500+D -) 2 tab PO DAILY [facility] Last Admin: 02/22/19 10:07 Dose: 2 tab Clopidogrel Bisulfate (Plavix -) 75 mg PO DAILY [facility] Last Admin: 02/22/19 10:07 Dose: 75 mg Docusate Sodium (Colace -) 300 mg PO DAILY [facility] Last Admin: 02/22/19 10:07 Dose: 300 mg Gabapentin (Neurontin -) 300 mg PO BID [facility] Last Admin: 02/22/19 22:09 Dose: Not Given Guaifenesin (Robitussin -) 10 ml PO Q6H PRN PRN Reason: COUGH Heparin Sodium (Porcine) (Heparin -) 5,000 unit SQ TID [facility] Last Admin: 02/23/19 06:41 Dose: 5,000 unit Ceftriaxone Sodium 1 gm/ (Dextrose) 50 mls @ 100 mls/hr IVPB DAILY [facility] Last Admin: 02/22/19 09:23 Dose: 100 mls/hr Methylprednisolone Sodium Succinate (Solu-Medrol -) 60 mg IVPUSH Q6H [facility] Nystatin (Nystop Powder -) 1 applic TP BID [facility] Last Admin: 02/22/19 22:11 Dose: 1 applic Ondansetron HCl (Zofran Injection) 8 mg IVPB Q8H PRN PRN Reason: NAUSEA Last Admin: 02/23/19 09:45 Dose: 8 mg Pantoprazole Sodium (Protonix -) 20 mg PO DAILY [facility] Last Admin: 02/22/19 10:07 Dose: 20 mg ASSESSMENT/PLAN: 73F w/ pmhx of DM, asthma, morbid obesity, CAD s/p stents, CKD presented to the ED with complaints of congestion, wheezing, cough currently being treated for COPD/CHF exacerbation with worsening respiratory failure. Neuro -AAOx3. Intermittently falling asleep, but answers questions appropriately when awake. -No sedation -Cont to monitor neuro status Pulm Acute Hypercapneic Respiratory Failure, Respiratory Acidosis COPD exacerbation Acute Bronchitis Likely Obstructive Sleep Apnea -Currently on 3L NC, cont NIPPV -Cont Solumedrol 60 mg IVP Q6H -Keep O2 >90% -Duonebs/Alb nebs CV Acute on Chronic Heart Failure (w/ preserved EF) Hx of CAD Hx of HTN -Hold home Amlo for now due to b/l leg swelling -Cont home ASA 81, Plavix 75, Lipitor 20 -Daily weights, I/Os -IV Lasix 40 given x2 -CXR showed new congestive changes today (02/23/19) Endo DM Morbid Obesity -Diet/Weight loss counseling UTI SANGITA on CKD Hyperkalemia -Cont IV Ceftriaxone -[place] catheter -Hold home Losartan -Nephro following; give Lokelma. Repeat BMP -Renal U/S Prophylaxis DVT: SQH GI: Home Protonix 20 FEN -no IVf -recheck lytes in AM -NPO Dispo: Pt will be monitored in ICU due to worsening respiratory status. We will continue to follow the patient. Thank you for this consultative opportunity. ATTENDING PHYSICIAN STATEMENT I saw and evaluated the patient. I reviewed the resident's note and discussed the case with the resident. I agree with the resident's findings and plan as documented. SUBJECTIVE: OBJECTIVE: ASSESSMENT AND PLAN:
--- NOTE | 2019-02-23 13:41 | PN ---
Physical Exam: SUBJECTIVE: 73F w/ pmhx of DM, asthma, morbid obesity, CAD s/p stents, CKD presented to the ED with complaints of congestion, wheezing, cough currently being treated for COPD/CHF exacerbation. Pt was admitted to medical floor and requested to be evaluated for worsening respiratory failure. Upon admission, pt was started on IV Solumedrol, Duonebs. She was found to have a UTI and started on IV Ceftriaxone. Additionally, due to hyperkalemia and SANGITA, she was evaluated by nephro and given IV Lasix. Upon my encounter, pt was AAOx3, laying in bed complaining of difficulty breathing. She was satting at 95% on 3L NC. An ABG was done in the morning that showed pH 7.20, pCO2 67.3, pO2 70, HCO3 25.1 (ABG on admission 7.21/65.9/93.8/25.4). She was placed on NIPPV last night, but per nurse, did not tolerate the mask well and was only intermittently on it. She continues to complain of difficulty breathing, speaks in short sentences, and has intermittent episodes of falling asleep mid-conversation. Pt denies previous intubation and states she follows up with Dr. Cordero as an outpatient. States she used to smoke 30 years ago, but could not quantify the amount. OBJECTIVE: Vital Signs Period Temp Pulse Resp BP Sys/Gottlieb Pulse Ox Last 24 Hr 98.1 F-98.8 F 73-86 20-20 107-136/53-67 94-96 GENERAL: Morbidly obese female, resting comfortably in bed. AAOx2 (person, place ). HEENT: AT/NC. EOMI. Dry mucus membranes. No JVD/LAD. No pharyngeal erythema. NECK: Normal range of motion, supple without lymphadenopathy, JVD, or masses. LUNGS: Poor respiratory effort, distant breath sounds. HEART: RRR. Normal S1, S2. No murmurs noted. ABDOMEN: Obese, soft/nontender/nondistended. MUSCULOSKELETAL: Normal range of motion at all joints. No bony deformities or tenderness. No CVA tenderness. UPPER EXTREMITIES: 2+ pulses, warm, well-perfused. No cyanosis. No clubbing. Cap refill <2 seconds. No peripheral edema. LOWER EXTREMITIES: 2+ pulses, warm, well-perfused. No calf tenderness. No peripheral edema. NEUROLOGICAL: Cranial nerves II-XII intact. Normal speech. Normal gait. PSYCHIATRIC: Cooperative. Good eye contact. Appropriate mood and affect. SKIN: Warm, dry, normal turgor, no rashes or lesions noted. Laboratory Results - last 24 hr 02/22/19 02/22/19 02/23/19 06:38 23:50 06:10 WBC 9.4 RBC 3.64 Hgb 10.6 L Hct 32.0 L MCV 88.0 MCH 29.2 MCHC 33.1 RDW 17.2 H Plt Count 216 MPV 8.4 Absolute Neuts (auto) 8.9 H Neutrophils % 95.0 H Neutrophils % (Manual) 89.2 H Band Neutrophils % 0.0 Lymphocytes % 3.0 L Lymphocytes % (Manual) 4.5 L D Monocytes % 1.7 L Monocytes % (Manual) 2 L Eosinophils % 0.1 D Eosinophils % (Manual) 1.8 D Basophils % 0.2 Basophils % (Manual) 0.0 Myelocytes % (Man) 0 Promyelocytes % (Man) 0 Blast Cells % (Manual) 0 Nucleated RBC % 0 Metamyelocytes 3 H D Hypochromia 0 Platelet Estimate Normal Polychromasia 0 Poikilocytosis 0 Anisocytosis 0 Microcytosis 0 Macrocytosis 0 Anticoagulation Therapy Puncture Site ABG pH ABG pCO2 at Pt Temp ABG pO2 at Pt Temp ABG HCO3 ABG O2 Sat (Measured) ABG O2 Content ABG Base Excess Sergey Test O2 Delivery Device Oxygen Flow Rate Vent Mode Vent Rate Mechanical Rate Pressure Support Vent Sodium 134 L Potassium 5.6 H Chloride 100 Carbon Dioxide 29 Anion Gap 5 L BUN 59.2 H Creatinine 2.5 H Est GFR (CKD-EPI)AfAm 21.53 Est GFR (CKD-EPI)NonAf 18.57 POC Glucometer Random Glucose 135 H Calcium 8.3 L Total Bilirubin 0.3 AST 22 ALT 17 Alkaline Phosphatase 97 Total Protein 4.7 L Albumin 2.2 L Ur Random Creatinine 67.0 02/23/19 02/23/19 02/23/19 06:10 06:13 09:19 WBC RBC Hgb Hct MCV MCH MCHC RDW Plt Count MPV Absolute Neuts (auto) Neutrophils % Neutrophils % (Manual) Band Neutrophils % Lymphocytes % Lymphocytes % (Manual) Monocytes % Monocytes % (Manual) Eosinophils % Eosinophils % (Manual) Basophils % Basophils % (Manual) Myelocytes % (Man) Promyelocytes % (Man) Blast Cells % (Manual) Nucleated RBC % Metamyelocytes Hypochromia Platelet Estimate Polychromasia Poikilocytosis Anisocytosis Microcytosis Macrocytosis Anticoagulation Therapy No Result Required. Puncture Site Left radial ABG pH 7.20 L ABG pCO2 at Pt Temp 67.3 H ABG pO2 at Pt Temp 70.0 L ABG HCO3 25.1 ABG O2 Sat (Measured) 92.4 L ABG O2 Content 15.9 ABG Base Excess -3.8 L Sergey Test Positive O2 Delivery Device Nasal Oxygen Flow Rate 2 manager child Vent Mode No Result Required. Vent Rate No Result Required. Mechanical Rate No Result Required. Pressure Support Vent No Result Required. Sodium 135 L Potassium 5.4 H Chloride 100 Carbon Dioxide 29 Anion Gap 6 L BUN 66.5 H Creatinine 2.5 H Est GFR (CKD-EPI)AfAm 21.53 Est GFR (CKD-EPI)NonAf 18.57 POC Glucometer 158 Random Glucose 157 H Calcium 8.0 L Total Bilirubin 0.3 AST 19 ALT 19 Alkaline Phosphatase 90 Total Protein 4.9 L Albumin 2.3 L Ur Random Creatinine Active Medications Acetaminophen (Tylenol -) 650 mg PO Q6H PRN PRN Reason: PAIN LEVEL 1-5 Acetaminophen (Tylenol -) 650 mg PO Q6H PRN PRN Reason: PAIN LEVEL 7 - 10 Albuterol Sulfate (Ventolin 0.083% Nebulizer Soln -) 1 amp NEB Q4H PRN PRN Reason: SHORT OF BREATH/WHEEZING Albuterol/Ipratropium (Duoneb -) 1 amp NEB RQID [facility] Last Admin: 02/23/19 11:39 Dose: 1 amp Aspirin (Asa -) 81 mg PO DAILY [facility] Last Admin: 02/22/19 10:07 Dose: 81 mg Atorvastatin Calcium (Lipitor -) 20 mg PO HS [facility] Last Admin: 02/22/19 22:09 Dose: 20 mg Calcium Carbonate/Cholecalciferol (Os-Jorge 500+D -) 2 tab PO DAILY [facility] Last Admin: 02/22/19 10:07 Dose: 2 tab Clopidogrel Bisulfate (Plavix -) 75 mg PO DAILY [facility] Last Admin: 02/22/19 10:07 Dose: 75 mg Docusate Sodium (Colace -) 300 mg PO DAILY [facility] Last Admin: 02/22/19 10:07 Dose: 300 mg Gabapentin (Neurontin -) 300 mg PO BID [facility] Last Admin: 02/22/19 22:09 Dose: Not Given Guaifenesin (Robitussin -) 10 ml PO Q6H PRN PRN Reason: COUGH Heparin Sodium (Porcine) (Heparin -) 5,000 unit SQ TID [facility] Last Admin: 02/23/19 06:41 Dose: 5,000 unit Ceftriaxone Sodium 1 gm/ (Dextrose) 50 mls @ 100 mls/hr IVPB DAILY [facility] Last Admin: 02/22/19 09:23 Dose: 100 mls/hr Methylprednisolone Sodium Succinate (Solu-Medrol -) 60 mg IVPUSH Q6H [facility] Nystatin (Nystop Powder -) 1 applic TP BID [facility] Last Admin: 02/22/19 22:11 Dose: 1 applic Ondansetron HCl (Zofran Injection) 8 mg IVPB Q8H PRN PRN Reason: NAUSEA Last Admin: 02/23/19 09:45 Dose: 8 mg Pantoprazole Sodium (Protonix -) 20 mg PO DAILY [facility] Last Admin: 02/22/19 10:07 Dose: 20 mg ASSESSMENT/PLAN: 73F w/ pmhx of DM, asthma, morbid obesity, CAD s/p stents, CKD presented to the ED with complaints of congestion, wheezing, cough currently being treated for COPD/CHF exacerbation with worsening respiratory failure. Neuro -AAOx3. Intermittently falling asleep, but answers questions appropriately when awake. -No sedation -Cont to monitor neuro status Pulm Acute Hypercapneic Respiratory Failure, Respiratory Acidosis COPD exacerbation Acute Bronchitis Likely Obstructive Sleep Apnea -Currently on 3L NC, cont NIPPV -Cont Solumedrol 60 mg IVP Q6H -Keep O2 >90% -Duonebs/Alb nebs CV Acute on Chronic Heart Failure (w/ preserved EF) Hx of CAD Hx of HTN -Hold home Amlo for now due to b/l leg swelling -Cont home ASA 81, Plavix 75, Lipitor 20 -Daily weights, I/Os -IV Lasix 40 given x2 -CXR showed new congestive changes today (02/23/19) Endo DM Morbid Obesity Hyperkalemia -Diet/Weight loss counseling UTI SANGITA on CKD Hyperkalemia -Cont IV Ceftriaxone -[place] catheter -Hold home Losartan -Nephro following; give Lokelma. Repeat BMP -Renal U/S Prophylaxis DVT: SQH GI: Home Protonix 20 FEN -no IVf -recheck lytes in AM -NPO Visit type - Emergency Visit Emergency Visit: Yes ED Registration Date: 02/19/19 Care time: The patient presented to the Emergency Department on the above date and was hospitalized for further evaluation of their emergent condition. - New Patient This patient is new to me today: Yes Date on this admission: 02/23/19 - Critical Care Critical Care patient: Yes Total Critical Care Time (in minutes): 35 Critical Care Statement: The care of this patient involved high complexity decision making to prevent further life threatening deterioration of the patient 's condition and/or to evaluate & treat vital organ system(s) failure or risk of failure. ATTENDING PHYSICIAN STATEMENT I saw and evaluated the patient. I reviewed the resident's note and discussed the case with the resident. I agree with the resident's findings and plan as documented. SUBJECTIVE: OBJECTIVE: ASSESSMENT AND PLAN:
[2019-02-23] MEDS: CLOPIDOGREL BISULFATE 75 MG TABLET (FP) PO SCH (14:22)
[2019-02-23] MEDS: CALCIUM 500MG/VIT-D 200 UNITS COMBO TABLET (FP) PO SCH (14:22)
[2019-02-23] MEDS: PANTOPRAZOLE 20 MG TABLET (FP) PO SCH (14:22)
[2019-02-23] MEDS: GABAPENTIN 300 MG CAPSULE (FP) PO SCH ×2 (14:23→22:33)
[2019-02-23] MEDS: ASPIRIN 81 MG CHEWABLE TABLETS PO SCH (14:23)
[2019-02-23] MEDS: DOCUSATE SODIUM 100 MG CAPSULE (FP) PO SCH (14:24)
[2019-02-23] MEDS ORDERED: PT OWN MED DRAWER 7, Y5N ONE ×2 (14:56→21:07)
[2019-02-23] MEDS: SODIUM ZIRCONIUM CYCLOSILICATE (LOKELMA) 5 GM PACKET PO SCH (15:06)
[2019-02-23] MEDS: NYSTATIN POWDER 100,000 UNITS/GM - 15 GM TOPICAL POWDER TP SCH (15:07)
[2019-02-23] MEDS ORDERED: methylPREDNISolone NA SUCC 40 MG/1 ML VIAL IVPUSH SCH (16:00)
[2019-02-23] MEDS ORDERED: ACETAMINOPHEN 325 MG TABLET (FP) PO PRN ×2 (17:14)
[2019-02-23] MEDS ORDERED: guaiFENesin 200 MG/10 ML 10 ML UNIT-DOSE CUPS PO PRN (17:14)
[2019-02-23] MEDS ORDERED: ALBUTEROL SO4 0.083% IH SOL 2.5 MG/3 ML VIAL.NEB. NEB PRN (17:14)
--- NOTE | 2019-02-23 20:45 | PN ---
Progress Note, Physician History of Present Illness: Pt seen and examined at bedside. She is more awake and interactive today. She feels that her breathing is improved. - Current Medication List Current Medications: Active Medications Acetaminophen (Tylenol -) 650 mg PO Q6H PRN PRN Reason: PAIN LEVEL 1-5 Albuterol Sulfate (Ventolin 0.083% Nebulizer Soln -) 1 amp NEB Q4H PRN PRN Reason: SHORT OF BREATH/WHEEZING Albuterol/Ipratropium (Duoneb -) 1 amp NEB RQID [facility] Aspirin (Asa -) 81 mg PO DAILY [facility] Atorvastatin Calcium (Lipitor -) 20 mg PO HS [facility] Calcium Carbonate/Cholecalciferol (Os-Jorge 500+D -) 2 tab PO DAILY [facility] Clopidogrel Bisulfate (Plavix -) 75 mg PO DAILY [facility] Docusate Sodium (Colace -) 300 mg PO DAILY [facility] Gabapentin (Neurontin -) 300 mg PO BID [facility] Guaifenesin (Robitussin -) 10 ml PO Q6H PRN PRN Reason: COUGH Heparin Sodium (Porcine) (Heparin -) 5,000 unit SQ TID [facility] Ceftriaxone Sodium 1 gm/ (Dextrose) 50 mls @ 100 mls/hr IVPB DAILY [facility] Methylprednisolone Sodium Succinate (Solu-Medrol -) 60 mg IVPUSH Q6H-IV [facility]FR[facility] Nystatin (Nystop Powder -) 1 applic TP BID [facility] Ondansetron HCl (Zofran Injection) 8 mg IVPB Q8H PRN PRN Reason: NAUSEA Pantoprazole Sodium (Protonix -) 20 mg PO DAILY [facility] - Objective Vital Signs: Vital Signs Temperature 98 F 02/23/19 16:31 Pulse Rate 89 02/23/19 16:31 Respiratory Rate 18 02/23/19 16:31 Blood Pressure 110/80 02/23/19 16:31 O2 Sat by Pulse Oximetry (%) 93 L 02/23/19 17:23 Constitutional: Yes: Calm Eyes: Yes: Conjunctiva Clear HENT: Yes: Atraumatic Neck: Yes: Supple Cardiovascular: Yes: S1, S2 Respiratory: Yes: CTA Bilaterally Gastrointestinal: Yes: Normal Bowel Sounds, Soft Genitourinary: Yes: WNL Edema: Yes Edema: LUE: Trace, RUE: Trace, LLE: 2+, RLE: 2+ Integumentary: Yes: Venous Stasis Changes Neurological: Yes: Oriented Labs: CBC, BMP 02/23/19 06:10 02/23/19 06:10 INR, PTT INR 1.10 (0.83-1.09) H 02/19/19 21:07 Problem List - Problems (1) Hyperkalemia Code(s): E87.5 - HYPERKALEMIA (2) CHF (congestive heart failure) Code(s): I50.9 - HEART FAILURE, UNSPECIFIED Qualifiers: Heart failure type: unspecified Heart failure chronicity: unspecified Qualified Code(s): I50.9 - Heart failure, unspecified (3) Renal insufficiency Code(s): N28.9 - DISORDER OF KIDNEY AND URETER, UNSPECIFIED Assessment/Plan Current Medications Generic Name Dose Route Start Last Admin Trade Name Freq PRN Reason Stop Dose Admin Acetaminophen 650 mg 02/23/19 17:14 Tylenol - PO Q6H PRN PAIN LEVEL 1-5 Albuterol Sulfate 1 amp 02/23/19 17:14 Ventolin 0.083% Nebulizer Soln - NEB Q4H PRN SHORT OF BREATH/WHEEZING Albuterol/Ipratropium 1 amp 02/23/19 20:00 Duoneb - NEB RQID [facility] Aspirin 81 mg 02/24/19 10:00 Asa - PO DAILY [facility] Atorvastatin Calcium 20 mg 02/23/19 22:00 Lipitor - PO HS [facility] Calcium Carbonate/Cholecalciferol 2 tab 02/24/19 10:00 Os-Jorge 500+D - PO DAILY [facility] Clopidogrel Bisulfate 75 mg 02/24/19 10:00 Plavix - PO DAILY [facility] Docusate Sodium 300 mg 02/24/19 10:00 Colace - PO DAILY [facility] Gabapentin 300 mg 02/23/19 22:00 Neurontin - PO BID [facility] Guaifenesin 10 ml 02/23/19 17:14 Robitussin - PO Q6H PRN COUGH Heparin Sodium (Porcine) 5,000 unit 02/23/19 22:00 Heparin - SQ TID [facility] Ceftriaxone Sodium 1 gm/ 50 mls @ 100 mls/hr 02/24/19 10:00 Dextrose IVPB DAILY [facility] Methylprednisolone Sodium Succinate 60 mg 02/23/19 21:00 Solu-Medrol - IVPUSH Q6H-IV [facility] Nystatin 1 applic 02/23/19 22:00 Nystop Powder - TP BID [facility] Ondansetron HCl 8 mg 02/23/19 17:14 Zofran Injection IVPB Q8H PRN NAUSEA Pantoprazole Sodium 20 mg 02/24/19 10:00 Protonix - PO DAILY [facility] Impression 1. hyperkalemia 2. edema 3. chf 4. cough 5. morbid obesity 6. dm 7. asthma 8. cad Plan - repeat labs in am - potassium improving - follow renal ultrasound - monitor bp - arb and amlodipine on hold - cont lasix
[2019-02-23 21:01] LABS: ARTERIAL BLOOD GAS BASE EXCESS -2.9 meq/l (-2-2); ARTERIAL BLOOD GAS PO2 76.6 mmHg (80-100)
[2019-02-23 21:06] LABS: ALLENS TEST POSITIVE
[2019-02-23 21:12] LABS: ARTERIAL BLOOD GAS PCO2 79.8 mmHg (35-45); ARTERIAL BLOOD GAS pH 7.15 (7.35-7.45)
[2019-02-23] MEDS ORDERED: RAPID SEQUENCE INTUBATION KIT NR ONE (21:29)
--- NOTE | 2019-02-23 22:32 | PN ---
Progress Note (short form) - Note Progress Note: Pt noted to be non responsive to deep painful stimulus, including blood draws for abg Abg showed CO2 retention with PH 7.15, CO2- 79.8 from PH 7.20 and CO2 67.3 in am Decision was made to intubate her due to worsening CO2 retention and anesthesia was called- Dr Machuca He intubated the pt under direct visualization with thick secretions noted in ETT Pt woke up and started to attempt to self extubate, she was sedated with propofol after one episode of vomiting. OGT was inserted.
[2019-02-23] MEDS: PROPOFOL 1,000,000 MCG/100 ML VIAL IVPB SCH (22:33)
[2019-02-23] MEDS: ATORVASTATIN CA 20 MG TABLET (FP) PO SCH (22:33)
[2019-02-24] MEDS: methylPREDNISolone NA SUCC 40 MG/1 ML VIAL IVPUSH SCH ×4 (02:32→21:56)
[2019-02-24] MEDS: NYSTATIN POWDER 100,000 UNITS/GM - 15 GM TOPICAL POWDER TP SCH ×3 (02:33→21:59)
[2019-02-24] MEDS: HEPARIN NA (PORCINE) 5,000 UNITS/ML 1ML VIAL SQ SCH ×3 (05:06→21:57)
[2019-02-24 05:54] LABS: ALLENS TEST POSITIVE
[2019-02-24 06:02] LABS: ARTERIAL BLD GAS O2 SATURATION 96.1 % (95-98); ARTERIAL BLOOD GAS BASE EXCESS 0.1 meq/l (-2-2); ARTERIAL BLOOD GAS PCO2 40.9 mmHg (35-45); ARTERIAL BLOOD GAS PO2 86.6 mmHg (80-100); ARTERIAL BLOOD GAS pH 7.39 (7.35-7.45)
[2019-02-24] MEDS: ALBUTEROL SO4 2.5/IPRATROPIUM 0.5 INH SOL 3 ML VIAL.NEB. NEB SCH ×4 (08:38→20:26)
[2019-02-24] MEDS: ASPIRIN 81 MG CHEWABLE TABLETS PO SCH (09:38)
[2019-02-24] MEDS: CALCIUM 500MG/VIT-D 200 UNITS COMBO TABLET (FP) PO SCH (09:39)
[2019-02-24] MEDS: PANTOPRAZOLE 20 MG TABLET (FP) PO SCH (09:39)
[2019-02-24] MEDS: CLOPIDOGREL BISULFATE 75 MG TABLET (FP) PO SCH (09:39)
[2019-02-24] MEDS: DOCUSATE SODIUM 100 MG CAPSULE (FP) PO SCH (09:39)
[2019-02-24] MEDS: GABAPENTIN 300 MG CAPSULE (FP) PO SCH ×2 (09:39→21:57)
[2019-02-24] MEDS ORDERED: cefTRIAXone SODIUM 1 GM VIAL ONE (09:47)
[2019-02-24] MEDS ORDERED: DEXTROSE 5%-WATER - 50 ML IVPB ONE (09:48)
[2019-02-24] MEDS: CEFTRIAXONE 1 GM in DEXTROSE 5%-WATER - 50 ML IVPB SCH (10:00)
--- NOTE | 2019-02-24 10:30 | PN ---
Teaching Attending Note Name of Resident: Jonny Rosado ATTENDING PHYSICIAN STATEMENT I saw and evaluated the patient. I reviewed the resident's note and discussed the case with the resident. I agree with the resident's findings and plan as documented. SUBJECTIVE: Patient seen and examined in the ICU. Events noted. Decompensated overnight and required intubation. Sedated on propofol. Intake & Output 02/21/19 02/22/19 02/23/19 02/24/19 23:59 23:59 23:59 23:59 Intake Total 965 876 1349 224 Output Total 300 116 945 8399 Balance 350 0 600 -1176 Weight 331 lb 334 lb 0.005 oz Last Vital Signs Temp Pulse Resp BP Pulse Ox 97.4 F L 68 16 161/72 99 02/24/19 10:00 02/24/19 10:00 02/24/19 10:00 02/24/19 10:00 02/24/19 08:25 Active Medications Acetaminophen (Tylenol -) 650 mg PO Q6H PRN PRN Reason: PAIN LEVEL 1-5 Albuterol Sulfate (Ventolin 0.083% Nebulizer Soln -) 1 amp NEB Q4H PRN PRN Reason: SHORT OF BREATH/WHEEZING Albuterol/Ipratropium (Duoneb -) 1 amp NEB RQID [facility] Last Admin: 02/24/19 08:38 Dose: 1 amp Aspirin (Asa -) 81 mg PO DAILY [facility] Last Admin: 02/24/19 09:38 Dose: 81 mg Atorvastatin Calcium (Lipitor -) 20 mg PO HS [facility] Last Admin: 02/23/19 22:33 Dose: Not Given Calcium Carbonate/Cholecalciferol (Os-Jorge 500+D -) 2 tab PO DAILY [facility] Last Admin: 02/24/19 09:39 Dose: 2 tab Clopidogrel Bisulfate (Plavix -) 75 mg PO DAILY [facility] Last Admin: 02/24/19 09:39 Dose: 75 mg Docusate Sodium (Colace -) 300 mg PO DAILY [facility] Last Admin: 02/24/19 09:39 Dose: 300 mg Gabapentin (Neurontin -) 300 mg PO BID [facility] Last Admin: 02/24/19 09:39 Dose: 300 mg Guaifenesin (Robitussin -) 10 ml PO Q6H PRN PRN Reason: COUGH Heparin Sodium (Porcine) (Heparin -) 5,000 unit SQ TID [facility] Last Admin: 02/24/19 05:06 Dose: 5,000 unit Ceftriaxone Sodium 1 gm/ (Dextrose) 50 mls @ 100 mls/hr IVPB DAILY [facility] Propofol (Diprivan -) 1,000,000 mcg in 100 mls @ 4.504 mls/hr IVPB TITR [facility]; Protocol Last Titration: 02/23/19 23:00 Dose: 10 mcg/kg/min, 9.008 mls/hr Insulin Aspart (Novolog Vial Sliding Scale -) 1 vial SQ ACHS [facility]; Protocol Methylprednisolone Sodium Succinate (Solu-Medrol -) 60 mg IVPUSH Q6H-IV [facility] Last Admin: 02/24/19 09:39 Dose: 60 mg Nystatin (Nystop Powder -) 1 applic TP BID [facility] Last Admin: 02/24/19 09:39 Dose: 1 applic Ondansetron HCl (Zofran Injection) 8 mg IVPB Q8H PRN PRN Reason: NAUSEA Pantoprazole Sodium (Protonix -) 20 mg PO DAILY [facility] Last Admin: 02/24/19 09:39 Dose: 20 mg Gen: Intubated and sedated Heart: RRR Lung: scattered rhonchi Abd: soft, nontender Ext: + edema [employer]: sedated Laboratory Results - last 24 hr 02/23/19 02/23/19 02/24/19 06:10 20:50 05:45 Neutrophils % (Manual) 89.2 H Band Neutrophils % 0.0 Lymphocytes % (Manual) 4.5 L D Monocytes % (Manual) 2 L Eosinophils % (Manual) 1.8 D Basophils % (Manual) 0.0 Myelocytes % (Man) 0 Promyelocytes % (Man) 0 Blast Cells % (Manual) 0 Nucleated RBC % 0 Metamyelocytes 3 H D Hypochromia 0 Platelet Estimate Normal Polychromasia 0 Poikilocytosis 0 Anisocytosis 0 Microcytosis 0 Macrocytosis 0 Anticoagulation Therapy No Result Required. No Result Required. Puncture Site Left radial Right radial ABG pH 7.15 L* 7.39 ABG pCO2 at Pt Temp 79.8 H* 40.9 ABG pO2 at Pt Temp 76.6 L 86.6 ABG HCO3 26.8 24.4 ABG O2 Sat (Measured) 93.0 L 96.1 ABG O2 Content 13.4 14.7 ABG Base Excess -2.9 L 0.1 Sergey Test Positive Positive O2 Delivery Device No Result Required. Vent Oxygen Flow Rate No Result Required. 45% Vent Mode No Result Required. A/c Vent Rate No Result Required. 16 Mechanical Rate No Result Required. Yes PEEP 5.0 Pressure Support Vent No Result Required. 450 Problem List - Problems (1) COPD exacerbation Code(s): J44.1 - CHRONIC OBSTRUCTIVE PULMONARY DISEASE W (ACUTE) EXACERBATION IMP: Acute Respiratory Failure due to Acute COPD Exacerbation & Acute on Chronic Diastolic Heart Failure CAD DM Morbid Obesity Likely Obstructive Sleep Apnea - AC Mode of vent - Lasix - monitor urine output, creatinine - daily weights - continue medrol - inhaled bronchodilators - O2 to keep SpO2 >90% - glucose control while on systemic steroids - DVT prophylaxis - Requires ICU monitoring Dr Juarez Critical care time spent in reviewing chart, evaluating patient and formulating plan - 36 minutes.
[2019-02-24 10:33] LABS: BASO % 1.3 % (0-2.0); EOS % 0.1 % (0-4.5); HEMATOCRIT 35.3 % (32.4-45.2); HEMOGLOBIN 11.6 GM/dL (10.7-15.3); LYMPH % 6.5 % (8-40); MCH 28.7 pg (25.7-33.7); MCHC 32.8 g/dl (32.0-36.0); MEAN CELL VOLUME 87.6 fl (80-96); MEAN PLT VOLUME 8.3 fl (7.5-11.1); NEUT % 89.1 % (42.8-82.8); PLATELET COUNT 206 K/MM3 (134-434); RBC 4.03 M/mm3 (3.60-5.2); RDW 16.9 % (11.6-15.6); WHITE BLOOD COUNT 10.3 K/mm3 (4.0-10.0)
[2019-02-24 11:09] LABS: ALBUMIN 2.4 g/dl (3.4-5.0); BILIRUBIN,TOTAL 0.5 mg/dL (0.2-1); CALCIUM 9.1 mg/dL (8.5-10.1); CREATININE 2.3 mg/dL (0.55-1.3); MAGNESIUM 2.3 mg/dL (1.8-2.4); PHOSPHOROUS 5.4 mg/dL (2.5-4.9); POTASSIUM 5.5 mmol/L (3.5-5.1)
[2019-02-24 11:42] LABS: ANISOCYTOSIS 0; MACROCYTOSIS 0; PLATELET ESTIMATE NORMAL
[2019-02-24] MEDS: INSULIN SLIDING SCALE (NOVOLOG) 1 VIAL SQ SCH ×3 (12:12→22:11)
[2019-02-24] MEDS ORDERED: INSULIN REGULAR HUMAN 100 UNITS/ML *VIAL IVPUSH ONE (14:41)
[2019-02-24] MEDS ORDERED: DEXTROSE 50%-WATER - 25 GM/50 ML VIAL IVPUSH ONE (14:41)
[2019-02-24] MEDS ORDERED: CALCIUM GLUCONATE 10% - 1,000 MG/10 ML VIAL IVPB ONE (14:42)
[2019-02-24] MEDS: SODIUM ZIRCONIUM CYCLOSILICATE (LOKELMA) 5 GM PACKET PO SCH (15:45)
[2019-02-24] MEDS ORDERED: DEXTROSE 50%-WATER 25 GM/50 ML DISP.SYRIN ONE (15:56)
[2019-02-24] MEDS ORDERED: FUROSEMIDE 40 MG/4 ML INJECTABLE VIAL IVPUSH ONE ×2 (16:12→19:02)
--- NOTE | 2019-02-24 16:32 | PN ---
Physical Exam: SUBJECTIVE: Patient seen and examined in the morning. No acute events overnight. No cardiac events on monitor. Patient sedated and not responding with examiner. OBJECTIVE: Vital Signs Period Temp Pulse Resp BP Sys/Gottlieb Pulse Ox Last 24 Hr 97.4 F-98 F 58-89 16-19 95-191/72-111 92-99 GENERAL:Morbidly obese female. Sedated. HEAD: Normal with no signs of trauma. EYES: PERRL, extraocular movements intact, sclera anicteric, conjunctiva clear. No ptosis. LUNGS: Ventilator sounds dominate. HEART: Regular rate and rhythm, S1, S2 without murmur, rub or gallop. ABDOMEN: Soft, nontender, nondistended, normoactive bowel sounds, no guarding, no rebound. EXTREMITIES: 2+ pulses, warm, well-perfused, no edema. NEUROLOGICAL: Cranial nerves II through XII grossly intact Laboratory Results - last 24 hr 02/23/19 02/24/19 02/24/19 20:50 05:45 10:10 WBC 10.3 H RBC 4.03 Hgb 11.6 Hct 35.3 MCV 87.6 MCH 28.7 MCHC 32.8 RDW 16.9 H Plt Count 206 MPV 8.3 Absolute Neuts (auto) 9.2 H Neutrophils % 89.1 H Neutrophils % (Manual) 91.1 H Band Neutrophils % 0.0 Lymphocytes % 6.5 L D Lymphocytes % (Manual) 1.0 L D Monocytes % 3.0 L Monocytes % (Manual) 5 D Eosinophils % 0.1 Eosinophils % (Manual) 0.0 D Basophils % 1.3 D Basophils % (Manual) 0.0 Myelocytes % (Man) 0 Promyelocytes % (Man) 0 Blast Cells % (Manual) 0 Nucleated RBC % 0 Metamyelocytes 0 D Hypochromia 0 Platelet Estimate Normal Polychromasia 0 Poikilocytosis 0 Anisocytosis 0 Microcytosis 0 Macrocytosis 0 Anticoagulation Therapy No Result Required. No Result Required. Puncture Site Left radial Right radial ABG pH 7.15 L* 7.39 ABG pCO2 at Pt Temp 79.8 H* 40.9 ABG pO2 at Pt Temp 76.6 L 86.6 ABG HCO3 26.8 24.4 ABG O2 Sat (Measured) 93.0 L 96.1 ABG O2 Content 13.4 14.7 ABG Base Excess -2.9 L 0.1 Sergey Test Positive Positive O2 Delivery Device No Result Required. Vent Oxygen Flow Rate No Result Required. 45% Vent Mode No Result Required. A/c Vent Rate No Result Required. 16 Mechanical Rate No Result Required. Yes PEEP 5.0 Pressure Support Vent No Result Required. 450 Sodium Potassium Chloride Carbon Dioxide Anion Gap BUN Creatinine Est GFR (CKD-EPI)AfAm Est GFR (CKD-EPI)NonAf POC Glucometer Random Glucose Calcium Phosphorus Magnesium Total Bilirubin AST ALT Alkaline Phosphatase Total Protein Albumin 02/24/19 02/24/19 10:10 12:08 WBC RBC Hgb Hct MCV MCH MCHC RDW Plt Count MPV Absolute Neuts (auto) Neutrophils % Neutrophils % (Manual) Band Neutrophils % Lymphocytes % Lymphocytes % (Manual) Monocytes % Monocytes % (Manual) Eosinophils % Eosinophils % (Manual) Basophils % Basophils % (Manual) Myelocytes % (Man) Promyelocytes % (Man) Blast Cells % (Manual) Nucleated RBC % Metamyelocytes Hypochromia Platelet Estimate Polychromasia Poikilocytosis Anisocytosis Microcytosis Macrocytosis Anticoagulation Therapy Puncture Site ABG pH ABG pCO2 at Pt Temp ABG pO2 at Pt Temp ABG HCO3 ABG O2 Sat (Measured) ABG O2 Content ABG Base Excess Sergey Test O2 Delivery Device Oxygen Flow Rate Vent Mode Vent Rate Mechanical Rate PEEP Pressure Support Vent Sodium 138 Potassium 5.5 H Chloride 100 Carbon Dioxide 28 Anion Gap 10 BUN 71.0 H Creatinine 2.3 H Est GFR (CKD-EPI)AfAm 23.81 Est GFR (CKD-EPI)NonAf 20.54 POC Glucometer 157 Random Glucose 162 H Calcium 9.1 Phosphorus 5.4 H Magnesium 2.3 Total Bilirubin 0.5 AST 22 ALT 21 Alkaline Phosphatase 84 Total Protein 5.0 L Albumin 2.4 L Active Medications Generic Name Dose Route Start Last Admin Trade Name Freq PRN Reason Stop Dose Admin Acetaminophen 650 mg 02/23/19 17:14 Tylenol - PO Q6H PRN PAIN LEVEL 1-5 Albuterol Sulfate 1 amp 02/23/19 17:14 Ventolin 0.083% Nebulizer Soln - NEB Q4H PRN SHORT OF BREATH/WHEEZING Albuterol/Ipratropium 1 amp 02/23/19 20:00 02/24/19 16:09 Duoneb - NEB 1 amp RQID [facility] Administration Aspirin 81 mg 02/24/19 10:00 02/24/19 09:38 Asa - PO 81 mg DAILY [facility] Administration Atorvastatin Calcium 20 mg 02/23/19 22:00 02/23/19 22:33 Lipitor - PO Not Given HS [facility] Calcium Carbonate/Cholecalciferol 2 tab 02/24/19 10:00 02/24/19 09:39 Os-Jorge 500+D - PO 2 tab DAILY [facility] Administration Clopidogrel Bisulfate 75 mg 02/24/19 10:00 02/24/19 09:39 Plavix - PO 75 mg DAILY [facility] Administration Docusate Sodium 300 mg 02/24/19 10:00 02/24/19 09:39 Colace - PO 300 mg DAILY [facility] Administration Furosemide 40 mg 02/24/19 16:12 Lasix Injection - IVPUSH 02/24/19 16:13 ONCE ONE Gabapentin 300 mg 02/23/19 22:00 02/24/19 09:39 Neurontin - PO 300 mg BID [facility] Administration Guaifenesin 10 ml 02/23/19 17:14 Robitussin - PO Q6H PRN COUGH Heparin Sodium (Porcine) 5,000 unit 02/23/19 22:00 02/24/19 05:06 Heparin - SQ 5,000 unit TID [facility] Administration Ceftriaxone Sodium 1 gm/ 50 mls @ 100 mls/hr 02/24/19 10:00 02/24/19 10:00 Dextrose IVPB 100 mls/hr DAILY [facility] Administration Propofol 1,000,000 mcg in 100 mls @ 4.504 mls/hr 02/23/19 22:15 02/23/19 23: 00 Diprivan - IVPB 10 mcg/kg/min TITR [facility] 9.008 mls/hr Titration Protocol 5 MCG/KG/MIN Insulin Aspart 1 vial 02/24/19 11:00 02/24/19 12:12 Novolog Vial Sliding Scale - SQ 2 units ACHS [facility] Administration Protocol Methylprednisolone Sodium Succinate 60 mg 02/23/19 21:00 02/24/19 09:39 Solu-Medrol - IVPUSH 60 mg Q6H-IV [facility] Administration Nystatin 1 applic 02/23/19 22:00 02/24/19 09:39 Nystop Powder - TP 1 applic BID [facility] Administration Ondansetron HCl 8 mg 12/19/19 17:14 Zofran Injection IVPB Q8H PRN NAUSEA Pantoprazole Sodium 20 mg 02/24/19 10:00 02/24/19 09:39 Protonix - PO 20 mg DAILY [facility] Administration Sodium Zirconium Cyclosilicate 10 gm 02/24/19 14:45 Lokelma PO DAILY [facility] ASSESSMENT/PLAN: 73 F PMH of DM, asthma, morbid obesity, CAD s/p stents, CKD who presented to ED with complaints of congestion, wheezing, cough currently being treated for COPD/ CHF exacerbation. Due to worsening respiratory failure and worsening mental status patient was intubated overnight. Neuro Patient is currently intubated and sedated -Continue propofol. -Continue monitoring -Sedation breaks daily Pulm Acute Hypercapnic Respiratory Failure, Respiratory Acidosis COPD exacerbation -Continue ventilator -Continue Solumedrol 60 mg IV Q6H -Duonebs -Albuterol Cardiac Acute on Chronic Heart Failure (w/ preserved EF) Hx of CAD and HTN -Holding home amlodipine -Home aspirin 81, plavix 75 mg, lipitor 20 -Daily weights, I&O -Continue Lasix 80 mg -Chest X-Ray showed no improvement today Endo Hx of Diabetes, Morbid Obesity, Hyperkalemia -Lokelma, IV Insulin, D50, Calcium gluconate given UTI SANGITA on CKD Hyperkalemia -Ceftriaxone -[place] Catheter -Hold home losartan -Lokelma. Repeat BMP -Renal U/S Prophylaxis DVT: SQH GI: Home Protonix 20 F: Oral Hydration E: Monitor BMP N: NPO Dispo: ICU monitoring. Visit type - Emergency Visit Emergency Visit: Yes ED Registration Date: 02/19/19 Care time: The patient presented to the Emergency Department on the above date and was hospitalized for further evaluation of their emergent condition. - New Patient This patient is new to me today: No - Critical Care Critical Care patient: Yes Total Critical Care Time (in minutes): 45 Critical Care Statement: The care of this patient involved high complexity decision making to prevent further life threatening deterioration of the patient 's condition and/or to evaluate & treat vital organ system(s) failure or risk of failure. ATTENDING PHYSICIAN STATEMENT I saw and evaluated the patient. I reviewed the resident's note and discussed the case with the resident. I agree with the resident's findings and plan as documented. SUBJECTIVE: OBJECTIVE: ASSESSMENT AND PLAN:
--- NOTE | 2019-02-24 16:53 | PN ---
Progress Note (short form) - Note Progress Note: Events noted CBC, BMP 02/24/19 10:10 02/24/19 10:10 Vital Signs Period Temp Pulse Resp BP Sys/Gottlieb Pulse Ox Last 24 Hr 97.4 F-97.6 F 58-80 16-19 95-191/72-111 92-99 morbidly obese s1s2 rrr lungs diffuse rhonchi anteriorly abd obese tinea, erythema under abdominal flap and groin chronic stasis dermatitis bilateral lower ext. tr edema sedated on ventilator Active Medications Acetaminophen (Tylenol -) 650 mg PO Q6H PRN PRN Reason: PAIN LEVEL 1-5 Albuterol Sulfate (Ventolin 0.083% Nebulizer Soln -) 1 amp NEB Q4H PRN PRN Reason: SHORT OF BREATH/WHEEZING Albuterol/Ipratropium (Duoneb -) 1 amp NEB RQID [facility] Last Admin: 02/24/19 16:09 Dose: 1 amp Aspirin (Asa -) 81 mg PO DAILY [facility] Last Admin: 02/24/19 09:38 Dose: 81 mg Atorvastatin Calcium (Lipitor -) 20 mg PO HS [facility] Last Admin: 02/23/19 22:33 Dose: Not Given Calcium Carbonate/Cholecalciferol (Os-Jorge 500+D -) 2 tab PO DAILY [facility] Last Admin: 02/24/19 09:39 Dose: 2 tab Clopidogrel Bisulfate (Plavix -) 75 mg PO DAILY [facility] Last Admin: 02/24/19 09:39 Dose: 75 mg Docusate Sodium (Colace -) 300 mg PO DAILY [facility] Last Admin: 02/24/19 09:39 Dose: 300 mg Gabapentin (Neurontin -) 300 mg PO BID [facility] Last Admin: 02/24/19 09:39 Dose: 300 mg Guaifenesin (Robitussin -) 10 ml PO Q6H PRN PRN Reason: COUGH Heparin Sodium (Porcine) (Heparin -) 5,000 unit SQ TID [facility] Last Admin: 02/24/19 14:45 Dose: 5,000 unit Ceftriaxone Sodium 1 gm/ (Dextrose) 50 mls @ 100 mls/hr IVPB DAILY [facility] Last Admin: 02/24/19 10:00 Dose: 100 mls/hr Propofol (Diprivan -) 1,000,000 mcg in 100 mls @ 4.504 mls/hr IVPB TITR [facility]; Protocol Last Titration: 02/23/19 23:00 Dose: 10 mcg/kg/min, 9.008 mls/hr Insulin Aspart (Novolog Vial Sliding Scale -) 1 vial SQ ACHS [facility]; Protocol Last Admin: 02/24/19 12:12 Dose: 2 units Methylprednisolone Sodium Succinate (Solu-Medrol -) 60 mg IVPUSH Q6H-IV [facility] Last Admin: 02/24/19 09:39 Dose: 60 mg Nystatin (Nystop Powder -) 1 applic TP BID [facility] Last Admin: 02/24/19 09:39 Dose: 1 applic Ondansetron HCl (Zofran Injection) 8 mg IVPB Q8H PRN PRN Reason: NAUSEA Pantoprazole Sodium (Protonix -) 20 mg PO DAILY [facility] Last Admin: 02/24/19 09:39 Dose: 20 mg Sodium Zirconium Cyclosilicate (Lokelma) 10 gm PO DAILY [facility] Last Admin: 02/24/19 15:45 Dose: 10 gm acute respiratory failure due to hypoventilation, NIKHIL UTI CKD-acute on chr. baseline creat~1.2 staph coag neg. anaerobic bottlex1 on blood culture-contaminant acute CHF metabolic encephalopathy dm htn cad morbid obesity consults appreciated iv steroid iv ceftriaxone diuresed gi/dvt prophylaxis
--- NOTE | 2019-02-24 17:40 | PN ---
Progress Note, Physician History of Present Illness: Pt seen and examined at bedside. She is now intubated. - Current Medication List Current Medications: Active Medications Acetaminophen (Tylenol -) 650 mg PO Q6H PRN PRN Reason: PAIN LEVEL 1-5 Albuterol Sulfate (Ventolin 0.083% Nebulizer Soln -) 1 amp NEB Q4H PRN PRN Reason: SHORT OF BREATH/WHEEZING Albuterol/Ipratropium (Duoneb -) 1 amp NEB RQID [facility] Last Admin: 02/24/19 16:09 Dose: 1 amp Aspirin (Asa -) 81 mg PO DAILY [facility] Last Admin: 02/24/19 09:38 Dose: 81 mg Atorvastatin Calcium (Lipitor -) 20 mg PO HS [facility] Last Admin: 02/23/19 22:33 Dose: Not Given Calcium Carbonate/Cholecalciferol (Os-Jorge 500+D -) 2 tab PO DAILY [facility] Last Admin: 02/24/19 09:39 Dose: 2 tab Clopidogrel Bisulfate (Plavix -) 75 mg PO DAILY [facility] Last Admin: 02/24/19 09:39 Dose: 75 mg Docusate Sodium (Colace -) 300 mg PO DAILY [facility] Last Admin: 02/24/19 09:39 Dose: 300 mg Gabapentin (Neurontin -) 300 mg PO BID [facility] Last Admin: 02/24/19 09:39 Dose: 300 mg Guaifenesin (Robitussin -) 10 ml PO Q6H PRN PRN Reason: COUGH Heparin Sodium (Porcine) (Heparin -) 5,000 unit SQ TID [facility] Last Admin: 02/24/19 14:45 Dose: 5,000 unit Ceftriaxone Sodium 1 gm/ (Dextrose) 50 mls @ 100 mls/hr IVPB DAILY [facility] Last Admin: 02/24/19 10:00 Dose: 100 mls/hr Propofol (Diprivan -) 1,000,000 mcg in 100 mls @ 4.504 mls/hr IVPB TITR [facility]; Protocol Last Titration: 02/23/19 23:00 Dose: 10 mcg/kg/min, 9.008 mls/hr Insulin Aspart (Novolog Vial Sliding Scale -) 1 vial SQ ACHS [facility]; Protocol Last Admin: 02/24/19 12:12 Dose: 2 units Methylprednisolone Sodium Succinate (Solu-Medrol -) 60 mg IVPUSH Q6H-IV [facility] Last Admin: 02/24/19 09:39 Dose: 60 mg Nystatin (Nystop Powder -) 1 applic TP BID [facility] Last Admin: 02/24/19 09:39 Dose: 1 applic Ondansetron HCl (Zofran Injection) 8 mg IVPB Q8H PRN PRN Reason: NAUSEA Pantoprazole Sodium (Protonix -) 20 mg PO DAILY [facility] Last Admin: 02/24/19 09:39 Dose: 20 mg Sodium Zirconium Cyclosilicate (Lokelma) 10 gm PO DAILY [facility] Last Admin: 02/24/19 15:45 Dose: 10 gm - Objective Vital Signs: Vital Signs Temperature 97.6 F 02/24/19 12:00 Pulse Rate 65 02/24/19 16:00 Respiratory Rate 16 02/24/19 16:00 Blood Pressure 170/80 02/24/19 16:00 O2 Sat by Pulse Oximetry (%) 99 02/24/19 10:00 Constitutional: Yes: Calm Eyes: Yes: Conjunctiva Clear HENT: Yes: Atraumatic Cardiovascular: Yes: S1, S2 Respiratory: Yes: Intubated, Mechanically Ventilated Gastrointestinal: Yes: Soft, Abdomen, Obese Genitourinary: Yes: Cadena Present Musculoskeletal: Yes: WNL Edema: Yes Edema: LLE: 2+, RLE: 2+ Neurological: Yes: Lethargy Labs: CBC, BMP 02/24/19 10:10 02/24/19 10:10 INR, PTT INR 1.10 (0.83-1.09) H 02/19/19 21:07 - ....Imaging Chest X-ray: Report Reviewed Problem List - Problems (1) Hyperkalemia Code(s): E87.5 - HYPERKALEMIA (2) CHF (congestive heart failure) Code(s): I50.9 - HEART FAILURE, UNSPECIFIED Qualifiers: Heart failure type: unspecified Heart failure chronicity: unspecified Qualified Code(s): I50.9 - Heart failure, unspecified (3) Renal insufficiency Code(s): N28.9 - DISORDER OF KIDNEY AND URETER, UNSPECIFIED Assessment/Plan Current Medications Generic Name Dose Route Start Last Admin Trade Name Freq PRN Reason Stop Dose Admin Acetaminophen 650 mg 02/23/19 17:14 Tylenol - PO Q6H PRN PAIN LEVEL 1-5 Albuterol Sulfate 1 amp 02/23/19 17:14 Ventolin 0.083% Nebulizer Soln - NEB Q4H PRN SHORT OF BREATH/WHEEZING Albuterol/Ipratropium 1 amp 02/23/19 20:00 02/24/19 16:09 Duoneb - NEB 1 amp RQID [facility] Administration Aspirin 81 mg 02/24/19 10:00 02/24/19 09:38 Asa - PO 81 mg DAILY [facility] Administration Atorvastatin Calcium 20 mg 02/23/19 22:00 02/23/19 22:33 Lipitor - PO Not Given HS [facility] Calcium Carbonate/Cholecalciferol 2 tab 02/24/19 10:00 02/24/19 09:39 Os-Jorge 500+D - PO 2 tab DAILY [facility] Administration Clopidogrel Bisulfate 75 mg 02/24/19 10:00 02/24/19 09:39 Plavix - PO 75 mg DAILY [facility] Administration Docusate Sodium 300 mg 02/24/19 10:00 02/24/19 09:39 Colace - PO 300 mg DAILY [facility] Administration Gabapentin 300 mg 02/23/19 22:00 02/24/19 09:39 Neurontin - PO 300 mg BID [facility] Administration Guaifenesin 10 ml 02/23/19 17:14 Robitussin - PO Q6H PRN COUGH Heparin Sodium (Porcine) 5,000 unit 02/23/19 22:00 02/24/19 14:45 Heparin - SQ 5,000 unit TID [facility] Administration Ceftriaxone Sodium 1 gm/ 50 mls @ 100 mls/hr 02/24/19 10:00 02/24/19 10:00 Dextrose IVPB 100 mls/hr DAILY [facility] Administration Propofol 1,000,000 mcg in 100 mls @ 4.504 mls/hr 02/23/19 22:15 02/23/19 23: 00 Diprivan - IVPB 10 mcg/kg/min TITR [facility] 9.008 mls/hr Titration Protocol 5 MCG/KG/MIN Insulin Aspart 1 vial 02/24/19 11:00 02/24/19 12:12 Novolog Vial Sliding Scale - SQ 2 units ACHS [facility] Administration Protocol Methylprednisolone Sodium Succinate 60 mg 02/23/19 21:00 02/24/19 09:39 Solu-Medrol - IVPUSH 60 mg Q6H-IV [facility] Administration Nystatin 1 applic 02/23/19 22:00 12/20/19 09:39 Nystop Powder - TP 1 applic BID [facility] Administration Ondansetron HCl 8 mg 02/23/19 17:14 Zofran Injection IVPB Q8H PRN NAUSEA Pantoprazole Sodium 20 mg 02/24/19 10:00 02/24/19 09:39 Protonix - PO 20 mg DAILY [facility] Administration Sodium Zirconium Cyclosilicate 10 gm 02/24/19 14:45 02/24/19 15:45 Lokelma PO 10 gm DAILY [facility] Administration Impression 1. hyperkalemia 2. edema 3. chf 4. cough 5. morbid obesity 6. dm 7. asthma 8. cad 9. 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
--- NOTE | 2019-02-24 19:22 | PN ---
Progress Note, Physician - Current Medication List Current Medications: Active Medications Acetaminophen (Tylenol -) 650 mg PO Q6H PRN PRN Reason: PAIN LEVEL 1-5 Albuterol Sulfate (Ventolin 0.083% Nebulizer Soln -) 1 amp NEB Q4H PRN PRN Reason: SHORT OF BREATH/WHEEZING Albuterol/Ipratropium (Duoneb -) 1 amp NEB RQID [facility] Last Admin: 02/24/19 16:09 Dose: 1 amp Aspirin (Asa -) 81 mg PO DAILY [facility] Last Admin: 02/24/19 09:38 Dose: 81 mg Atorvastatin Calcium (Lipitor -) 20 mg PO HS [facility] Last Admin: 02/23/19 22:33 Dose: Not Given Calcium Carbonate/Cholecalciferol (Os-Jorge 500+D -) 2 tab PO DAILY [facility] Last Admin: 02/24/19 09:39 Dose: 2 tab Clopidogrel Bisulfate (Plavix -) 75 mg PO DAILY [facility] Last Admin: 02/24/19 09:39 Dose: 75 mg Docusate Sodium (Colace -) 300 mg PO DAILY [facility] Last Admin: 02/24/19 09:39 Dose: 300 mg Gabapentin (Neurontin -) 300 mg PO BID [facility] Last Admin: 02/24/19 09:39 Dose: 300 mg Guaifenesin (Robitussin -) 10 ml PO Q6H PRN PRN Reason: COUGH Heparin Sodium (Porcine) (Heparin -) 5,000 unit SQ TID [facility] Last Admin: 02/24/19 14:45 Dose: 5,000 unit Ceftriaxone Sodium 1 gm/ (Dextrose) 50 mls @ 100 mls/hr IVPB DAILY [facility] Last Admin: 02/24/19 10:00 Dose: 100 mls/hr Propofol (Diprivan -) 1,000,000 mcg in 100 mls @ 4.504 mls/hr IVPB TITR [facility]; Protocol Last Titration: 02/23/19 23:00 Dose: 10 mcg/kg/min, 9.008 mls/hr Insulin Aspart (Novolog Vial Sliding Scale -) 1 vial SQ ACHS [facility]; Protocol Last Admin: 02/24/19 18:35 Dose: 2 units Methylprednisolone Sodium Succinate (Solu-Medrol -) 60 mg IVPUSH Q6H-IV [facility] Last Admin: 02/24/19 15:00 Dose: 60 mg Nystatin (Nystop Powder -) 1 applic TP BID [facility] Last Admin: 02/24/19 09:39 Dose: 1 applic Ondansetron HCl (Zofran Injection) 8 mg IVPB Q8H PRN PRN Reason: NAUSEA Pantoprazole Sodium (Protonix -) 20 mg PO DAILY [facility] Last Admin: 02/24/19 09:39 Dose: 20 mg Sodium Zirconium Cyclosilicate (Lokelma) 10 gm PO DAILY [facility] Last Admin: 02/24/19 15:45 Dose: 10 gm - Objective Vital Signs: Vital Signs Temperature 97.6 F 02/24/19 12:00 Pulse Rate 62 02/24/19 18:00 Respiratory Rate 16 02/24/19 18:00 Blood Pressure 135/60 02/24/19 18:00 O2 Sat by Pulse Oximetry (%) 99 02/24/19 10:00 Labs: CBC, BMP 02/24/19 10:10 02/24/19 10:10 INR, PTT INR 1.10 (0.83-1.09) H 02/19/19 21:07 Problem List - Problems (1) Diastolic CHF Code(s): I50.30 - UNSPECIFIED DIASTOLIC (CONGESTIVE) HEART FAILURE (2) Renal insufficiency Code(s): N28.9 - DISORDER OF KIDNEY AND URETER, UNSPECIFIED (3) Sleep apnea Code(s): G47.30 - SLEEP APNEA, UNSPECIFIED (4) Anxiety and depression Code(s): F41.9 - ANXIETY DISORDER, UNSPECIFIED; F32.9 - MAJOR DEPRESSIVE DISORDER, SINGLE EPISODE, UNSPECIFIED (5) HTN (hypertension) Code(s): I10 - ESSENTIAL (PRIMARY) HYPERTENSION Qualifiers: (6) Hyperlipidemia Code(s): E78.5 - HYPERLIPIDEMIA, UNSPECIFIED (7) Morbid obesity Code(s): E66.01 - MORBID (SEVERE) OBESITY DUE TO EXCESS CALORIES (8) Pericardial effusion Code(s): I31.3 - PERICARDIAL EFFUSION (NONINFLAMMATORY) (9) Sacral decubitus ulcer, stage II Code(s): L89.152 - PRESSURE ULCER OF SACRAL REGION, STAGE 2 (10) Cough Code(s): R05 - COUGH (11) Urinary tract infection Code(s): N39.0 - URINARY TRACT INFECTION, SITE NOT SPECIFIED Qualifiers: Urinary tract infection type: site unspecified Hematuria presence: without hematuria Qualified Code(s): N39.0 - Urinary tract infection, site not specified
--- NOTE | 2019-02-24 19:23 | PN ---
Progress Note, Physician Chief Complaint: Pt A&Ox3; lethargic; dyspneic. History of Present Illness: The patient is a 73 year old white female with a past medical history of morbid obesity, CAD s/p stents, HTN, HLD, COPD/?asthma, history of MRSA, OA, diabetes, now here today for evaluation of cough. The patient reports that she has had a productive cough for the past few days. She also reports nausea, vomiting, and diarrhea but states that these have been chronic and intermittent. Patient notes chronic lower extremity edema but states that it is worse today. Patient denies headache, lightheadedness. Denies fever, chills. Denies chest pain, shortness of breath. Denies diarrhea. Allergies: metoprolol, metronidazole PCP: Vinicio Leahy - Current Medication List Current Medications: Active Medications Acetaminophen (Tylenol -) 650 mg PO Q6H PRN PRN Reason: PAIN LEVEL 1-5 Albuterol Sulfate (Ventolin 0.083% Nebulizer Soln -) 1 amp NEB Q4H PRN PRN Reason: SHORT OF BREATH/WHEEZING Albuterol/Ipratropium (Duoneb -) 1 amp NEB RQID [facility] Last Admin: 02/24/19 16:09 Dose: 1 amp Aspirin (Asa -) 81 mg PO DAILY [facility] Last Admin: 02/24/19 09:38 Dose: 81 mg Atorvastatin Calcium (Lipitor -) 20 mg PO HS [facility] Last Admin: 02/23/19 22:33 Dose: Not Given Calcium Carbonate/Cholecalciferol (Os-Jorge 500+D -) 2 tab PO DAILY [facility] Last Admin: 02/24/19 09:39 Dose: 2 tab Clopidogrel Bisulfate (Plavix -) 75 mg PO DAILY [facility] Last Admin: 02/24/19 09:39 Dose: 75 mg Docusate Sodium (Colace -) 300 mg PO DAILY [facility] Last Admin: 02/24/19 09:39 Dose: 300 mg Gabapentin (Neurontin -) 300 mg PO BID [facility] Last Admin: 02/24/19 09:39 Dose: 300 mg Guaifenesin (Robitussin -) 10 ml PO Q6H PRN PRN Reason: COUGH Heparin Sodium (Porcine) (Heparin -) 5,000 unit SQ TID [facility] Last Admin: 02/24/19 14:45 Dose: 5,000 unit Ceftriaxone Sodium 1 gm/ (Dextrose) 50 mls @ 100 mls/hr IVPB DAILY [facility] Last Admin: 02/24/19 10:00 Dose: 100 mls/hr Propofol (Diprivan -) 1,000,000 mcg in 100 mls @ 4.504 mls/hr IVPB TITR [facility]; Protocol Last Titration: 02/23/19 23:00 Dose: 10 mcg/kg/min, 9.008 mls/hr Insulin Aspart (Novolog Vial Sliding Scale -) 1 vial SQ ACHS [facility]; Protocol Last Admin: 02/24/19 18:35 Dose: 2 units Methylprednisolone Sodium Succinate (Solu-Medrol -) 60 mg IVPUSH Q6H-IV [facility] Last Admin: 02/24/19 15:00 Dose: 60 mg Nystatin (Nystop Powder -) 1 applic TP BID [facility] Last Admin: 02/24/19 09:39 Dose: 1 applic Ondansetron HCl (Zofran Injection) 8 mg IVPB Q8H PRN PRN Reason: NAUSEA Pantoprazole Sodium (Protonix -) 20 mg PO DAILY [facility] Last Admin: 02/24/19 09:39 Dose: 20 mg Sodium Zirconium Cyclosilicate (Lokelma) 10 gm PO DAILY [facility] Last Admin: 02/24/19 15:45 Dose: 10 gm - Objective Vital Signs: Vital Signs Temperature 97.6 F 02/24/19 12:00 Pulse Rate 62 02/24/19 18:00 Respiratory Rate 16 02/24/19 18:00 Blood Pressure 135/60 02/24/19 18:00 O2 Sat by Pulse Oximetry (%) 99 02/24/19 10:00 Constitutional: Yes: Obese Eyes: Yes: WNL HENT: Yes: WNL Neck: Yes: WNL Cardiovascular: Yes: S1, S2 Respiratory: Yes: Diminished, Tachypnea Gastrointestinal: Yes: Soft, Abdomen, Obese ...Rectal Exam: Yes: Deferred Genitourinary: No: Anuria Breast(s): Yes: WNL Musculoskeletal: Yes: Joint Stiffness, Joint Swelling, Muscle Weakness Extremities: Yes: Cool Edema: Yes Edema: LLE: 1+, RLE: 1+ Peripheral Pulses WNL: Yes Integumentary: Yes: Venous Stasis Changes Neurological: Yes: Confusion, Weakness Psychiatric: Yes: Other Labs: CBC, BMP 02/24/19 10:10 12/20/19 10:10 INR, PTT INR 1.10 (0.83-1.09) H 02/19/19 21:07 - ....Imaging Chest X-ray: Image Reviewed EKG: Image Reviewed Problem List - Problems (1) Diastolic CHF Assessment/Plan: No JVD; no infiltrate on CXR. Repeat ECHO (04/2018 ECHO showed normal LVEF, but evaluation of valves could not be made). Code(s): I50.30 - UNSPECIFIED DIASTOLIC (CONGESTIVE) HEART FAILURE (2) Renal insufficiency Assessment/Plan: Dada discontinue furosemide (Cr 1.1 last months; now rising to 2.5; no signs of acute CHF). Code(s): N28.9 - DISORDER OF KIDNEY AND URETER, UNSPECIFIED (3) Sleep apnea Assessment/Plan: On nightly CPAP sleep studies,, if not done already, per pulmonary. Code(s): G47.30 - SLEEP APNEA, UNSPECIFIED (4) Anxiety and depression Code(s): F41.9 - ANXIETY DISORDER, UNSPECIFIED; F32.9 - MAJOR DEPRESSIVE DISORDER, SINGLE EPISODE, UNSPECIFIED (5) HTN (hypertension) Code(s): I10 - ESSENTIAL (PRIMARY) HYPERTENSION Qualifiers: (6) Hyperlipidemia Assessment/Plan: Total cholesterol 116 mg/dL. Code(s): E78.5 - HYPERLIPIDEMIA, UNSPECIFIED (7) Morbid obesity Assessment/Plan: pt has had this condition for years, with attendant increase in cardiac and other health risks. HGBA1c 4.5 Code(s): E66.01 - MORBID (SEVERE) OBESITY DUE TO EXCESS CALORIES (8) Pericardial effusion Code(s): I31.3 - PERICARDIAL EFFUSION (NONINFLAMMATORY) (9) Sacral decubitus ulcer, stage II Code(s): L89.152 - PRESSURE ULCER OF SACRAL REGION, STAGE 2 (10) Cough Code(s): R05 - COUGH (11) Urinary tract infection Assessment/Plan: On antibiotics. Maintain fluids. Code(s): N39.0 - URINARY TRACT INFECTION, SITE NOT SPECIFIED Qualifiers: Urinary tract infection type: site unspecified Hematuria presence: without hematuria Qualified Code(s): N39.0 - Urinary tract infection, site not specified (12) Acute respiratory failure Assessment/Plan: worsening state; for transfer to ICU. Code(s): J96.00 - ACUTE RESPIRATORY FAILURE, UNSP W HYPOXIA OR HYPERCAPNIA
[2019-02-24] MEDS: ATORVASTATIN CA 20 MG TABLET (FP) PO SCH (21:57)
[2019-02-24] MEDS: PROPOFOL 1,000,000 MCG/100 ML VIAL IVPB SCH (21:58)
--- NOTE | 2019-02-25 02:22 | PN ---
Progress Note, Physician Chief Complaint: Pt. required intubation overnight; on propofol. History of Present Illness: The patient is a 73 year old white female with a past medical history of morbid obesity, CAD s/p stents, HTN, HLD, COPD/?asthma, history of MRSA, OA, diabetes, now here today for evaluation of cough. The patient reports that she has had a productive cough for the past few days. She also reports nausea, vomiting, and diarrhea but states that these have been chronic and intermittent. Patient notes chronic lower extremity edema but states that it is worse today. Patient denies headache, lightheadedness. Denies fever, chills. Denies chest pain, shortness of breath. Denies diarrhea. Allergies: metoprolol, metronidazole PCP: Vinicio Leahy - Current Medication List Current Medications: Active Medications Acetaminophen (Tylenol -) 650 mg PO Q6H PRN PRN Reason: PAIN LEVEL 1-5 Albuterol Sulfate (Ventolin 0.083% Nebulizer Soln -) 1 amp NEB Q4H PRN PRN Reason: SHORT OF BREATH/WHEEZING Albuterol/Ipratropium (Duoneb -) 1 amp NEB RQID [facility] Last Admin: 02/24/19 20:26 Dose: 1 amp Aspirin (Asa -) 81 mg PO DAILY [facility] Last Admin: 02/24/19 09:38 Dose: 81 mg Atorvastatin Calcium (Lipitor -) 20 mg PO HS [facility] Last Admin: 02/24/19 21:57 Dose: 20 mg Calcium Carbonate/Cholecalciferol (Os-Jorge 500+D -) 2 tab PO DAILY [facility] Last Admin: 02/24/19 09:39 Dose: 2 tab Clopidogrel Bisulfate (Plavix -) 75 mg PO DAILY [facility] Last Admin: 02/24/19 09:39 Dose: 75 mg Docusate Sodium (Colace -) 300 mg PO DAILY [facility] Last Admin: 02/24/19 09:39 Dose: 300 mg Gabapentin (Neurontin -) 300 mg PO BID [facility] Last Admin: 02/24/19 21:57 Dose: Not Given Guaifenesin (Robitussin -) 10 ml PO Q6H PRN PRN Reason: COUGH Heparin Sodium (Porcine) (Heparin -) 5,000 unit SQ TID [facility] Last Admin: 02/24/19 21:57 Dose: 5,000 unit Ceftriaxone Sodium 1 gm/ (Dextrose) 50 mls @ 100 mls/hr IVPB DAILY [facility] Last Admin: 02/24/19 10:00 Dose: 100 mls/hr Propofol (Diprivan -) 1,000,000 mcg in 100 mls @ 4.504 mls/hr IVPB TITR [facility]; Protocol Last Admin: 02/24/19 21:58 Dose: 30 mcg/kg/min, 27.025 mls/hr Insulin Aspart (Novolog Vial Sliding Scale -) 1 vial SQ ACHS [facility]; Protocol Last Admin: 02/24/19 22:11 Dose: 2 units Methylprednisolone Sodium Succinate (Solu-Medrol -) 60 mg IVPUSH Q6H-IV [facility] Last Admin: 02/24/19 21:56 Dose: 60 mg Nystatin (Nystop Powder -) 1 applic TP BID [facility] Last Admin: 02/24/19 21:59 Dose: 1 applic Ondansetron HCl (Zofran Injection) 8 mg IVPB Q8H PRN PRN Reason: NAUSEA Pantoprazole Sodium (Protonix -) 20 mg PO DAILY [facility] Last Admin: 02/24/19 09:39 Dose: 20 mg Sodium Zirconium Cyclosilicate (Lokelma) 10 gm PO DAILY [facility] Last Admin: 02/24/19 15:45 Dose: 10 gm - Objective Vital Signs: Vital Signs Temperature 97.6 F 02/24/19 12:00 Pulse Rate 61 02/25/19 00:52 Respiratory Rate 16 02/25/19 00:52 Blood Pressure 127/55 L 02/24/19 22:00 O2 Sat by Pulse Oximetry (%) 97 02/25/19 00:52 Constitutional: Yes: Obese Eyes: Yes: WNL HENT: Yes: Other Neck: Yes: Decreased ROM Cardiovascular: Yes: S1, S2, S4 Respiratory: Yes: Mechanically Ventilated Gastrointestinal: Yes: Abdomen, Obese Genitourinary: No: Anuria Breast(s): Yes: WNL Musculoskeletal: Yes: Joint Stiffness, Joint Swelling, Muscle Weakness Extremities: Yes: Cool Edema: Yes Edema: LLE: 1+, RLE: 1+ Peripheral Pulses WNL: Yes Integumentary: Yes: WNL Neurological: Yes: Unresponsive (on propofol) Psychiatric: Yes: Other Labs: CBC, BMP 02/24/19 10:10 02/24/19 10:10 INR, PTT INR 1.10 (0.83-1.09) H 02/19/19 21:07 - ....Imaging Chest X-ray: Image Reviewed Other: Image Reviewed (telemetry: NSR) Problem List - Problems (1) Diastolic CHF Assessment/Plan: Intubated; Now with elevated BP. Pt has been on losartan in the past; problematic now with elevated BUN/Cr. Consider hydralazine. Repeat ECHO (04/2018 ECHO showed normal LVEF, but evaluation of valves could not be made). Code(s): I50.30 - UNSPECIFIED DIASTOLIC (CONGESTIVE) HEART FAILURE (2) Renal insufficiency Assessment/Plan: for renal US; f/u with nephrology. Code(s): N28.9 - DISORDER OF KIDNEY AND URETER, UNSPECIFIED (3) Sleep apnea Assessment/Plan: On nightly CPAP sleep studies,, if not done already, per pulmonary. Code(s): G47.30 - SLEEP APNEA, UNSPECIFIED (4) Anxiety and depression Code(s): F41.9 - ANXIETY DISORDER, UNSPECIFIED; F32.9 - MAJOR DEPRESSIVE DISORDER, SINGLE EPISODE, UNSPECIFIED (5) HTN (hypertension) Code(s): I10 - ESSENTIAL (PRIMARY) HYPERTENSION Qualifiers: (6) Hyperlipidemia Assessment/Plan: Total cholesterol 116 mg/dL. On atorvastatin Code(s): E78.5 - HYPERLIPIDEMIA, UNSPECIFIED (7) Morbid obesity Assessment/Plan: pt has had this condition for years, with attendant increase in cardiac and other health risks. Code(s): E66.01 - MORBID (SEVERE) OBESITY DUE TO EXCESS CALORIES (8) Pericardial effusion Assessment/Plan: by history (not on 04/26 ECHO report); f/u repeat ECHO Code(s): I31.3 - PERICARDIAL EFFUSION (NONINFLAMMATORY) (9) Sacral decubitus ulcer, stage II Code(s): L89.152 - PRESSURE ULCER OF SACRAL REGION, STAGE 2 (10) Cough Code(s): R05 - COUGH (11) Urinary tract infection Assessment/Plan: On antibiotics. Maintain fluids. Code(s): N39.0 - URINARY TRACT INFECTION, SITE NOT SPECIFIED Qualifiers: Urinary tract infection type: site unspecified Hematuria presence: without hematuria Qualified Code(s): N39.0 - Urinary tract infection, site not specified (12) Acute respiratory failure Assessment/Plan: Now intubated. O2; bronchodilators; antibiotics. Code(s): J96.00 - ACUTE RESPIRATORY FAILURE, UNSP W HYPOXIA OR HYPERCAPNIA (13) Hx of heart artery stent Assessment/Plan: On ASA and Plavix TNI < 0.02 Code(s): Z95.5 - PRESENCE OF CORONARY ANGIOPLASTY IMPLANT AND GRAFT Assessment/Plan CCU time spent: 35 minutes.
[2019-02-25] MEDS: methylPREDNISolone NA SUCC 40 MG/1 ML VIAL IVPUSH SCH ×4 (03:25→23:10)
[2019-02-25] MEDS: HEPARIN NA (PORCINE) 5,000 UNITS/ML 1ML VIAL SQ SCH ×3 (05:04→23:10)
[2019-02-25 06:58] LABS: BASO % 0.1 % (0-2.0); EOS % 0.1 % (0-4.5); HEMOGLOBIN 10.8 GM/dL (10.7-15.3); LYMPH % 5.1 % (8-40); MCHC 33.6 g/dl (32.0-36.0); MEAN CELL VOLUME 86.3 fl (80-96); MEAN PLT VOLUME 8.3 fl (7.5-11.1); MONO % 3.5 % (3.8-10.2); NEUT % 91.2 % (42.8-82.8); PLATELET COUNT 167 K/MM3 (134-434); RDW 16.6 % (11.6-15.6); WHITE BLOOD COUNT 8.5 K/mm3 (4.0-10.0)
[2019-02-25] MEDS: INSULIN SLIDING SCALE (NOVOLOG) 1 VIAL SQ SCH ×4 (07:00→23:11)
[2019-02-25 07:06] LABS: ALBUMIN 2.2 g/dl (3.4-5.0); BILIRUBIN,TOTAL 0.3 mg/dL (0.2-1); BLOOD UREA NITROGEN 66.4 mg/dL (7-18); CALCIUM 8.1 mg/dL (8.5-10.1); CREATININE 2.1 mg/dL (0.55-1.3); MAGNESIUM 2.1 mg/dL (1.8-2.4); PHOSPHOROUS 4.7 mg/dL (2.5-4.9); POTASSIUM 4.8 mmol/L (3.5-5.1); TOT PROT 4.5 g/dl (6.4-8.2)
[2019-02-25] MEDS ORDERED: DEXTROSE 5%-WATER - 50 ML IVPB ONE (08:17)
[2019-02-25] MEDS ORDERED: cefTRIAXone SODIUM 1 GM VIAL ONE (08:17)
[2019-02-25] MEDS: ALBUTEROL SO4 2.5/IPRATROPIUM 0.5 INH SOL 3 ML VIAL.NEB. NEB SCH ×4 (08:35→20:46)
[2019-02-25] MEDS: DOCUSATE SODIUM 100 MG CAPSULE (FP) PO SCH (09:07)
[2019-02-25] MEDS: ASPIRIN 81 MG CHEWABLE TABLETS PO SCH (09:07)
[2019-02-25] MEDS: SODIUM ZIRCONIUM CYCLOSILICATE (LOKELMA) 5 GM PACKET PO SCH (09:08)
[2019-02-25] MEDS: NYSTATIN POWDER 100,000 UNITS/GM - 15 GM TOPICAL POWDER TP SCH ×2 (09:10→23:11)
[2019-02-25] MEDS: GABAPENTIN 300 MG CAPSULE (FP) PO SCH ×2 (09:10→21:52)
[2019-02-25] MEDS: PANTOPRAZOLE 20 MG TABLET (FP) PO SCH (09:11)
[2019-02-25] MEDS: CALCIUM 500MG/VIT-D 200 UNITS COMBO TABLET (FP) PO SCH (09:11)
[2019-02-25] MEDS: CEFTRIAXONE 1 GM in DEXTROSE 5%-WATER - 50 ML IVPB SCH (09:11)
[2019-02-25] MEDS: CLOPIDOGREL BISULFATE 75 MG TABLET (FP) PO SCH (09:11)
[2019-02-25 10:03] LABS: ANISOCYTOSIS 1+; MACROCYTOSIS 1+; PLATELET ESTIMATE NORMAL
--- NOTE | 2019-02-25 10:19 | PN ---
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 - Current Medication List Current Medications: Active Medications Acetaminophen (Tylenol -) 650 mg PO Q6H PRN PRN Reason: PAIN LEVEL 1-5 Albuterol Sulfate (Ventolin 0.083% Nebulizer Soln -) 1 amp NEB Q4H PRN PRN Reason: SHORT OF BREATH/WHEEZING Albuterol/Ipratropium (Duoneb -) 1 amp NEB RQID [facility] Last Admin: 02/25/19 08:35 Dose: 1 amp Aspirin (Asa -) 81 mg PO DAILY [facility] Last Admin: 02/25/19 09:07 Dose: Not Given Atorvastatin Calcium (Lipitor -) 20 mg PO HS [facility] Last Admin: 02/24/19 21:57 Dose: 20 mg Calcium Carbonate/Cholecalciferol (Os-Jorge 500+D -) 2 tab PO DAILY [facility] Last Admin: 02/25/19 09:11 Dose: Not Given Clopidogrel Bisulfate (Plavix -) 75 mg PO DAILY [facility] Last Admin: 02/25/19 09:11 Dose: Not Given Docusate Sodium (Colace -) 300 mg PO DAILY [facility] Last Admin: 02/25/19 09:07 Dose: Not Given Gabapentin (Neurontin -) 300 mg PO BID [facility] Last Admin: 02/25/19 09:10 Dose: Not Given Guaifenesin (Robitussin -) 10 ml PO Q6H PRN PRN Reason: COUGH Heparin Sodium (Porcine) (Heparin -) 5,000 unit SQ TID [facility] Last Admin: 02/25/19 05:04 Dose: 5,000 unit Ceftriaxone Sodium 1 gm/ (Dextrose) 50 mls @ 100 mls/hr IVPB DAILY [facility] Last Admin: 02/25/19 09:11 Dose: 100 mls/hr Propofol (Diprivan -) 1,000,000 mcg in 100 mls @ 4.504 mls/hr IVPB TITR [facility]; Protocol Last Titration: 02/25/19 07:44 Dose: 25 mcg/kg/min, 22.521 mls/hr Insulin Aspart (Novolog Vial Sliding Scale -) 1 vial SQ ACHS [facility]; Protocol Last Admin: 02/25/19 07:00 Dose: 2 units Methylprednisolone Sodium Succinate (Solu-Medrol -) 60 mg IVPUSH Q6H-IV [facility] Last Admin: 02/25/19 09:10 Dose: 60 mg Nystatin (Nystop Powder -) 1 applic TP BID [facility] Last Admin: 02/25/19 09:10 Dose: 1 applic Ondansetron HCl (Zofran Injection) 8 mg IVPB Q8H PRN PRN Reason: NAUSEA Pantoprazole Sodium (Protonix -) 20 mg PO DAILY [facility] Last Admin: 02/25/19 09:11 Dose: Not Given Sodium Zirconium Cyclosilicate (Lokelma) 10 gm PO DAILY [facility] Last Admin: 02/25/19 09:08 Dose: Not Given - Objective Vital Signs: Vital Signs Temperature 98 F 02/25/19 06:00 Pulse Rate 46 L 02/25/19 08:00 Respiratory Rate 16 02/25/19 08:43 Blood Pressure 136/70 02/25/19 08:00 O2 Sat by Pulse Oximetry (%) 97 02/25/19 00:52 Constitutional: Yes: No Distress, Calm Neck: Yes: Supple Cardiovascular: Yes: Regular Rate and Rhythm Respiratory: Yes: Regular, Diminished, Intubated, Mechanically Ventilated, Rhonchi Gastrointestinal: Yes: Normal Bowel Sounds, Soft, Abdomen, Obese Genitourinary: Yes: Cadena Present Edema: Yes Edema: LLE: 2+, RLE: 2+ Integumentary: Yes: Venous Stasis Changes Labs: CBC, BMP 02/25/19 06:08 02/25/19 06:08 INR, PTT INR 1.10 (0.83-1.09) H 02/19/19 21:07 - ....Imaging Chest X-ray: Report Reviewed (Left base pleural effusion and ATX) Assessment/Plan - Problems (1) Diastolic CHF Assessment/Plan: Intubated; Pt has been on losartan in the past; problematic now with elevated BUN/Cr. IV diuresis with monitor diuretic response, renal fxn and electrolytes Repeat ECHO (04/2018 ECHO showed normal LVEF, but evaluation of valves could not be made). Code(s): I50.30 - UNSPECIFIED DIASTOLIC (CONGESTIVE) HEART FAILURE (2) Renal insufficiency Assessment/Plan: Renal US negative for hydronephrosus, resume ARB once acute on CKD and hyperkalemia resolves Code(s): N28.9 - DISORDER OF KIDNEY AND URETER, UNSPECIFIED (3) Sleep apnea Assessment/Plan: On nightly CPAP sleep studies,, if not done already, per pulmonary. Code(s): G47.30 - SLEEP APNEA, UNSPECIFIED (4) Anxiety and depression Code(s): F41.9 - ANXIETY DISORDER, UNSPECIFIED; F32.9 - MAJOR DEPRESSIVE DISORDER, SINGLE EPISODE, UNSPECIFIED (5) HTN (hypertension) Code(s): I10 - ESSENTIAL (PRIMARY) HYPERTENSION Qualifiers: (6) Hyperlipidemia Assessment/Plan: Total cholesterol 116 mg/dL. On atorvastatin Code(s): E78.5 - HYPERLIPIDEMIA, UNSPECIFIED (7) Morbid obesity Assessment/Plan: pt has had this condition for years, with attendant increase in cardiac and other health risks. Code(s): E66.01 - MORBID (SEVERE) OBESITY DUE TO EXCESS CALORIES (8) Pericardial effusion Assessment/Plan: f/u ECHO Code(s): I31.3 - PERICARDIAL EFFUSION (NONINFLAMMATORY) (9) Sacral decubitus ulcer, stage II Code(s): L89.152 - PRESSURE ULCER OF SACRAL REGION, STAGE 2 (10) Cough Code(s): R05 - COUGH (11) Urinary tract infection Assessment/Plan: On antibiotics. Fluids at KVO Code(s): N39.0 - URINARY TRACT INFECTION, SITE NOT SPECIFIED Qualifiers: Urinary tract infection type: site unspecified Hematuria presence: without hematuria Qualified Code(s): N39.0 - Urinary tract infection, site not specified (12) Acute respiratory failure Assessment/Plan: Now intubated. O2; bronchodilators; antibiotics, IV steroids with GI protection Code(s): J96.00 - ACUTE RESPIRATORY FAILURE, UNSP W HYPOXIA OR HYPERCAPNIA (13) Hx of heart artery stent Assessment/Plan: On ASA, Plavix and Lipitor 20 qd TNI < 0.02 Code(s): Z95.5 - PRESENCE OF CORONARY ANGIOPLASTY IMPLANT AND GRAFT Assessment/Plan CCU time spent: 35 minutes.
[2019-02-25] MEDS ORDERED: FUROSEMIDE 40 MG/4 ML INJECTABLE VIAL IVPUSH ONE (10:47)
--- NOTE | 2019-02-25 11:03 | PN ---
Teaching Attending Note Name of Resident: Sherice Fernandez ATTENDING PHYSICIAN STATEMENT I saw and evaluated the patient. I reviewed the resident's note and discussed the case with the resident. I agree with the resident's findings and plan as documented. SUBJECTIVE: Pt seen and examined in the ICU. Remains intubated, sedated. Last ABG showing normalized pH. Diuresed well yesterday. OBJECTIVE: Vital Signs Period Temp Pulse Resp BP Sys/Gottlieb Pulse Ox Last 24 Hr 97.6 F-98 F 46-86 12-18 127-170/55-110 97-97 Intake & Output 02/22/19 02/23/19 02/24/19 02/25/19 23:59 23:59 23:59 23:59 Intake Total 750 1100 574 289 Output Total 584 780 6376 1700 Balance 0 600 -826 -1411 Weight 151.5 kg 146.9 kg Gen: intubated, sedated Heart: RRR Lung: scattered rhonchi Abd: soft, nontender Ext: + edema CBC, BMP 02/25/19 06:08 02/25/19 06:08 Active Medications Acetaminophen (Tylenol -) 650 mg PO Q6H PRN PRN Reason: PAIN LEVEL 1-5 Albuterol Sulfate (Ventolin 0.083% Nebulizer Soln -) 1 amp NEB Q4H PRN PRN Reason: SHORT OF BREATH/WHEEZING Albuterol/Ipratropium (Duoneb -) 1 amp NEB RQID [facility] Last Admin: 02/25/19 08:35 Dose: 1 amp Aspirin (Asa -) 81 mg PO DAILY [facility] Last Admin: 02/25/19 09:07 Dose: Not Given Atorvastatin Calcium (Lipitor -) 20 mg PO HS [facility] Last Admin: 02/24/19 21:57 Dose: 20 mg Calcium Carbonate/Cholecalciferol (Os-Jorge 500+D -) 2 tab PO DAILY [facility] Last Admin: 02/25/19 09:11 Dose: Not Given Clopidogrel Bisulfate (Plavix -) 75 mg PO DAILY [facility] Last Admin: 02/25/19 09:11 Dose: Not Given Docusate Sodium (Colace -) 300 mg PO DAILY [facility] Last Admin: 02/25/19 09:07 Dose: Not Given Gabapentin (Neurontin -) 300 mg PO BID [facility] Last Admin: 02/25/19 09:10 Dose: Not Given Guaifenesin (Robitussin -) 10 ml PO Q6H PRN PRN Reason: COUGH Heparin Sodium (Porcine) (Heparin -) 5,000 unit SQ TID [facility] Last Admin: 02/25/19 05:04 Dose: 5,000 unit Ceftriaxone Sodium 1 gm/ (Dextrose) 50 mls @ 100 mls/hr IVPB DAILY [facility] Last Admin: 02/25/19 09:11 Dose: 100 mls/hr Propofol (Diprivan -) 1,000,000 mcg in 100 mls @ 4.504 mls/hr IVPB TITR [facility]; Protocol Last Titration: 02/25/19 07:44 Dose: 25 mcg/kg/min, 22.521 mls/hr Insulin Aspart (Novolog Vial Sliding Scale -) 1 vial SQ ACHS [facility]; Protocol Last Admin: 02/25/19 07:00 Dose: 2 units Methylprednisolone Sodium Succinate (Solu-Medrol -) 60 mg IVPUSH Q6H-IV [facility] Last Admin: 02/25/19 09:10 Dose: 60 mg Nystatin (Nystop Powder -) 1 applic TP BID [facility] Last Admin: 02/25/19 09:10 Dose: 1 applic Ondansetron HCl (Zofran Injection) 8 mg IVPB Q8H PRN PRN Reason: NAUSEA Pantoprazole Sodium (Protonix -) 20 mg PO DAILY [facility] Last Admin: 02/25/19 09:11 Dose: Not Given Sodium Zirconium Cyclosilicate (Lokelma) 10 gm PO DAILY [facility] Last Admin: 02/25/19 09:08 Dose: Not Given ASSESSMENT AND PLAN: Acute Hypoxic and Hypercapneic Respiratory Failure Acute COPD Exacerbation Acute on Chronic Diastolic Heart Failure UTI r/o Pneumonia CAD DM Morbid Obesity Likely Obstructive Sleep Apnea - continue antibiotics - lasix - monitor urine output, creatinine - daily weights - continue medrol - inhaled bronchodilators - O2 to keep SpO2 >90% - daily sedation vacations to assess mental status - spontaneous breathing trials as tolerated - enteral feeds - DVT/GI prophylaxis critical care time spent in reviewing chart, evaluating patient and formulating plan 35 min Problem List - Problems (1) COPD exacerbation Code(s): J44.1 - CHRONIC OBSTRUCTIVE PULMONARY DISEASE W (ACUTE) EXACERBATION
[2019-02-25] MEDS ORDERED: INSULIN (NOVOLOG) ASPART 100 UNITS/ML 10ML VIAL ONE (12:50)
--- NOTE | 2019-02-25 18:01 | PN ---
Physical Exam: SUBJECTIVE: Patient seen and examined. Intubated, sedated. Started feeds today. Continuing abx. OBJECTIVE: Vital Signs Period Temp Pulse Resp BP Sys/Gottlieb Pulse Ox Last 24 Hr 97.6 F-98.1 F 46-86 11-16 117-142/55-76 97-100 GENERAL: Intubated & sedated HEENT: PERRLA LUNGS: SARAH wheeze noted. Satting well HEART: RRR S1S2 heard no murmurs ABDOMEN: Obese. NTND. + bowel sounds EXTREMITIES: 2+ pulses present. 1+ pitting edema b/l LE Laboratory Results - last 24 hr 02/24/19 02/24/19 02/25/19 18:16 22:08 06:08 WBC 8.5 RBC 3.70 Hgb 10.8 Hct 32.0 L MCV 86.3 MCH 29.0 MCHC 33.6 RDW 16.6 H Plt Count 167 MPV 8.3 Absolute Neuts (auto) 7.8 Neutrophils % 91.2 H Neutrophils % (Manual) 85.9 H Band Neutrophils % 7.1 Lymphocytes % 5.1 L D Lymphocytes % (Manual) 5.0 L D Monocytes % 3.5 L Monocytes % (Manual) 1 L Eosinophils % 0.1 Eosinophils % (Manual) 0.0 Basophils % 0.1 Basophils % (Manual) 0.0 Myelocytes % (Man) 0 Promyelocytes % (Man) 0 Blast Cells % (Manual) 0 Nucleated RBC % 0 Metamyelocytes 1 D Hypochromia 0 Platelet Estimate Normal Polychromasia 0 Poikilocytosis 0 Anisocytosis 1+ Macrocytosis 1+ Sodium Potassium Chloride Carbon Dioxide Anion Gap BUN Creatinine Est GFR (CKD-EPI)AfAm Est GFR (CKD-EPI)NonAf POC Glucometer 186 175 Random Glucose Calcium Phosphorus Magnesium Total Bilirubin AST ALT Alkaline Phosphatase Total Protein Albumin 02/25/19 02/25/19 02/25/19 06:08 12:40 16:57 WBC RBC Hgb Hct MCV MCH MCHC RDW Plt Count MPV Absolute Neuts (auto) Neutrophils % Neutrophils % (Manual) Band Neutrophils % Lymphocytes % Lymphocytes % (Manual) Monocytes % Monocytes % (Manual) Eosinophils % Eosinophils % (Manual) Basophils % Basophils % (Manual) Myelocytes % (Man) Promyelocytes % (Man) Blast Cells % (Manual) Nucleated RBC % Metamyelocytes Hypochromia Platelet Estimate Polychromasia Poikilocytosis Anisocytosis Macrocytosis Sodium 137 Potassium 4.8 Chloride 100 Carbon Dioxide 28 Anion Gap 8 BUN 66.4 H Creatinine 2.1 H Est GFR (CKD-EPI)AfAm 26.58 Est GFR (CKD-EPI)NonAf 22.93 POC Glucometer 228 152 Random Glucose 172 H Calcium 8.1 L Phosphorus 4.7 Magnesium 2.1 Total Bilirubin 0.3 AST 14 L ALT 16 Alkaline Phosphatase 74 Total Protein 4.5 L Albumin 2.2 L Active Medications Generic Name Dose Route Start Last Admin Trade Name Freq PRN Reason Stop Dose Admin Acetaminophen 650 mg 02/23/19 17:14 Tylenol - PO Q6H PRN PAIN LEVEL 1-5 Albuterol Sulfate 1 amp 02/23/19 17:14 Ventolin 0.083% Nebulizer Soln - NEB Q4H PRN SHORT OF BREATH/WHEEZING Albuterol/Ipratropium 1 amp 02/23/19 20:00 02/25/19 16:23 Duoneb - NEB 1 amp RQID [facility] Administration Aspirin 81 mg 02/24/19 10:00 02/25/19 09:07 Asa - PO Not Given DAILY [facility] Atorvastatin Calcium 20 mg 02/23/19 22:00 02/24/19 21:57 Lipitor - PO 20 mg HS [facility] Administration Calcium Carbonate/Cholecalciferol 2 tab 02/24/19 10:00 02/25/19 09:11 Os-Jorge 500+D - PO Not Given DAILY [facility] Clopidogrel Bisulfate 75 mg 02/24/19 10:00 02/25/19 09:11 Plavix - PO Not Given DAILY [facility] Docusate Sodium 300 mg 02/24/19 10:00 02/25/19 09:07 Colace - PO Not Given DAILY [facility] Gabapentin 300 mg 02/23/19 22:00 02/25/19 09:10 Neurontin - PO Not Given BID [facility] Guaifenesin 10 ml 02/23/19 17:14 Robitussin - PO Q6H PRN COUGH Heparin Sodium (Porcine) 5,000 unit 02/23/19 22:00 02/25/19 15:00 Heparin - SQ 5,000 unit TID [facility] Administration Ceftriaxone Sodium 1 gm/ 50 mls @ 100 mls/hr 02/24/19 10:00 02/25/19 09:11 Dextrose IVPB 100 mls/hr DAILY [facility] Administration Propofol 1,000,000 mcg in 100 mls @ 4.504 mls/hr 02/23/19 22:15 02/25/19 07: 44 Diprivan - IVPB 25 mcg/kg/min TITR [facility] 22.521 mls/hr Titration Protocol 5 MCG/KG/MIN Insulin Aspart 1 vial 02/24/19 11:00 02/25/19 12:42 Novolog Vial Sliding Scale - SQ 4 units ACHS [facility] Administration Protocol Methylprednisolone Sodium Succinate 60 mg 02/23/19 21:00 02/25/19 15:00 Solu-Medrol - IVPUSH 60 mg Q6H-IV [facility] Administration Nystatin 1 applic 02/23/19 22:00 02/25/19 09:10 Nystop Powder - TP 1 applic BID [facility] Administration Ondansetron HCl 8 mg 02/23/19 17:14 Zofran Injection IVPB Q8H PRN NAUSEA Pantoprazole Sodium 20 mg 02/24/19 10:00 02/25/19 09:11 Protonix - PO Not Given DAILY [facility] Sodium Zirconium Cyclosilicate 10 gm 02/24/19 14:45 02/25/19 09:08 Lokelma PO Not Given DAILY [facility] ASSESSMENT/PLAN: 73 y.o. F PMH nDM, asthma, morbid obesity, CAD s/p stent placement, HTN, HLD presented 02/19 for acute hypoxic hypercapnic respiratory failure. #ACTOR UNDERSTUDY -intubated, full vent support -sedated, daily sed aparna's #CV -acute on chronic HR w/ preserved EF -Echo 04/2018: normal LVEF-- valves not well visualized -c/w asa, plavix, lipitor daily -EKG 02/19: NSR [id number] -cardio following -holding home htn meds (amlodipine, losartan) -Daily weights -Monitor outputs #Pulm -Intubated on vent; TV 400 FiO2 40% -CXR: widened mediastinum, L base pleural fluid w/ atelectasis, R base atelectasis. Upper lobes clear -COPD -NIKHIL -C/w duonebs, solumedrol, alb neb #GI -OGT placed -started tube feeds today #Renal -SANGITA; trend cr, improving -c/w lasix -Lokelma -renal U/S: no hydro noted of R kidney; L kidney difficult to visualize -follow meade outputs -renal following #Endo -HbA1c 4.5% -ISS -BGMs ACHS #ID -Blood cx's + S. epidermidis; repeat blood cx negative -Urine cx + E. Coli -Hx of + ESBL in blood culture 03/2018 -C/w ceftriaxone for UTI -ID following-- Dr. Doran #FEN -no standing fluids -Kyperkalemia resolved; trend bmp -OGT feeds glucerna #PPX -Heparin SQ -Protonix 20mg daily Visit type - Emergency Visit Emergency Visit: No - New Patient This patient is new to me today: No - Critical Care Critical Care patient: Yes Total Critical Care Time (in minutes): 36 Critical Care Statement: The care of this patient involved high complexity decision making to prevent further life threatening deterioration of the patient 's condition and/or to evaluate & treat vital organ system(s) failure or risk of failure. ATTENDING PHYSICIAN STATEMENT I saw and evaluated the patient. I reviewed the resident's note and discussed the case with the resident. I agree with the resident's findings and plan as documented. SUBJECTIVE: OBJECTIVE: ASSESSMENT AND PLAN:
[2019-02-25] MEDS: PROPOFOL 1,000,000 MCG/100 ML VIAL IVPB SCH ×2 (19:12→23:13)
--- NOTE | 2019-02-25 19:16 | PN ---
Progress Note (short form) - Note Progress Note: no change today and still on vent Vital Signs Period Temp Pulse Resp BP Sys/Gottlieb Pulse Ox Last 24 Hr 97.4 F-98.1 F 46-86 11-17 117-142/55-76 97-100 morbidly obese s1s2 rrr lungs diffuse rhonchi anteriorly abd obese tinea, erythema under abdominal flap and groin chronic stasis dermatitis bilateral lower ext. tr edema sedated on ventilator CBC, BMP 02/25/19 06:08 02/25/19 06:08 ASSESSMENT/PLAN: 73 y.o. F PMH nDM, asthma, morbid obesity, CAD s/p stent placement, HTN, HLD presented 02/19 for acute hypoxic hypercapnic respiratory failure. 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 Upper lobes clear -COPD -NIKHIL -C/w duonebs, solumedrol, alb neb #GI -OGT placed -started tube feeds today #Renal -SANGITA; trend cr, improving -c/w lasix -Lokelma -renal U/S: no hydro noted of R kidney; L kidney difficult to visualize -follow meade outputs -renal following #Endo -HbA1c 4.5% -ISS -BGMs ACHS #ID -Blood cx's + S. epidermidis; repeat blood cx negative -Urine cx + E. Coli -Hx of + ESBL in blood culture 03/2018 -C/w ceftriaxone for UTI -ID following-- Dr. Doran #FEN -no standing fluids -Kyperkalemia resolved; trend bmp -OGT feeds glucerna #PPX -Heparin SQ -Protonix 20mg daily Current Medications Acetaminophen (Tylenol -) 650 mg PO Q6H PRN PRN Reason: PAIN LEVEL 1-5 Albuterol Sulfate (Ventolin 0.083% Nebulizer Soln -) 1 amp NEB Q4H PRN PRN Reason: SHORT OF BREATH/WHEEZING Albuterol/Ipratropium (Duoneb -) 1 amp NEB RQID [facility] Last Admin: 02/25/19 16:23 Dose: 1 amp Aspirin (Asa -) 81 mg PO DAILY [facility] Last Admin: 02/25/19 09:07 Dose: Not Given Atorvastatin Calcium (Lipitor -) 20 mg PO HS [facility] Last Admin: 02/24/19 21:57 Dose: 20 mg Calcium Carbonate/Cholecalciferol (Os-Jorge 500+D -) 2 tab PO DAILY [facility] Last Admin: 02/25/19 09:11 Dose: Not Given Clopidogrel Bisulfate (Plavix -) 75 mg PO DAILY [facility] Last Admin: 02/25/19 09:11 Dose: Not Given Docusate Sodium (Colace -) 300 mg PO DAILY [facility] Last Admin: 02/25/19 09:07 Dose: Not Given Gabapentin (Neurontin -) 300 mg PO BID [facility] Last Admin: 02/25/19 09:10 Dose: Not Given Guaifenesin (Robitussin -) 10 ml PO Q6H PRN PRN Reason: COUGH Heparin Sodium (Porcine) (Heparin -) 5,000 unit SQ TID [facility] Last Admin: 02/25/19 15:00 Dose: 5,000 unit Ceftriaxone Sodium 1 gm/ (Dextrose) 50 mls @ 100 mls/hr IVPB DAILY [facility] Last Admin: 02/25/19 09:11 Dose: 100 mls/hr Propofol (Diprivan -) 1,000,000 mcg in 100 mls @ 4.504 mls/hr IVPB TITR [facility]; Protocol Last Admin: 02/25/19 19:12 Dose: 20 mcg/kg/min, 18.017 mls/hr Insulin Aspart (Novolog Vial Sliding Scale -) 1 vial SQ ACHS [facility]; Protocol Last Admin: 02/25/19 17:15 Dose: 2 units Methylprednisolone Sodium Succinate (Solu-Medrol -) 60 mg IVPUSH Q6H-IV [facility] Last Admin: 02/25/19 15:00 Dose: 60 mg Nystatin (Nystop Powder -) 1 applic TP BID [facility] Last Admin: 02/25/19 09:10 Dose: 1 applic Ondansetron HCl (Zofran Injection) 8 mg IVPB Q8H PRN PRN Reason: NAUSEA Pantoprazole Sodium (Protonix -) 20 mg PO DAILY [facility] Last Admin: 02/25/19 09:11 Dose: Not Given Sodium Zirconium Cyclosilicate (Lokelma) 10 gm PO DAILY [facility] Last Admin: 02/25/19 09:08 Dose: Not Given
--- NOTE | 2019-02-25 20:45 | PN ---
Progress Note (short form) - Note Progress Note: 1. hyperkalemia 2. edema 3. chf 4. cough 5. morbid obesity 6. dm 7. asthma 8. cad 9. acuter resp failure Current Medications Acetaminophen (Tylenol -) 650 mg PO Q6H PRN PRN Reason: PAIN LEVEL 1-5 Albuterol Sulfate (Ventolin 0.083% Nebulizer Soln -) 1 amp NEB Q4H PRN PRN Reason: SHORT OF BREATH/WHEEZING Albuterol/Ipratropium (Duoneb -) 1 amp NEB RQID [facility] Last Admin: 02/25/19 16:23 Dose: 1 amp Aspirin (Asa -) 81 mg PO DAILY [facility] Last Admin: 02/25/19 09:07 Dose: Not Given Atorvastatin Calcium (Lipitor -) 20 mg PO HS [facility] Last Admin: 02/24/19 21:57 Dose: 20 mg Calcium Carbonate/Cholecalciferol (Os-Jorge 500+D -) 2 tab PO DAILY [facility] Last Admin: 02/25/19 09:11 Dose: Not Given Clopidogrel Bisulfate (Plavix -) 75 mg PO DAILY [facility] Last Admin: 02/25/19 09:11 Dose: Not Given Docusate Sodium (Colace -) 300 mg PO DAILY [facility] Last Admin: 02/25/19 09:07 Dose: Not Given Gabapentin (Neurontin -) 300 mg PO BID [facility] Last Admin: 02/25/19 09:10 Dose: Not Given Guaifenesin (Robitussin -) 10 ml PO Q6H PRN PRN Reason: COUGH Heparin Sodium (Porcine) (Heparin -) 5,000 unit SQ TID [facility] Last Admin: 02/25/19 15:00 Dose: 5,000 unit Ceftriaxone Sodium 1 gm/ (Dextrose) 50 mls @ 100 mls/hr IVPB DAILY [facility] Last Admin: 02/25/19 09:11 Dose: 100 mls/hr Propofol (Diprivan -) 1,000,000 mcg in 100 mls @ 4.504 mls/hr IVPB TITR [facility]; Protocol Last Admin: 02/25/19 19:12 Dose: 20 mcg/kg/min, 18.017 mls/hr Insulin Aspart (Novolog Vial Sliding Scale -) 1 vial SQ ACHS [facility]; Protocol Last Admin: 02/25/19 17:15 Dose: 2 units Methylprednisolone Sodium Succinate (Solu-Medrol -) 60 mg IVPUSH Q6H-IV [facility] Last Admin: 02/25/19 15:00 Dose: 60 mg Nystatin (Nystop Powder -) 1 applic TP BID [facility] Last Admin: 02/25/19 09:10 Dose: 1 applic Ondansetron HCl (Zofran Injection) 8 mg IVPB Q8H PRN PRN Reason: NAUSEA Pantoprazole Sodium (Protonix -) 20 mg PO DAILY [facility] Last Admin: 02/25/19 09:11 Dose: Not Given Sodium Zirconium Cyclosilicate (Lokelma) 10 gm PO DAILY [facility] Last Admin: 02/25/19 09:08 Dose: Not Given Last Vital Signs Temp Pulse Resp BP Pulse Ox 97.4 F L 53 L 14 132/59 L 100 02/25/19 18:00 02/25/19 18:00 02/25/19 18:00 02/25/19 18:00 02/25/19 09:00 Lungs vented Heart reg Abd soft CBC, BMP 02/25/19 06:08 02/25/19 06:08 IMP- azotemia ckd Plan- monitor renal function trends
[2019-02-25] MEDS: ATORVASTATIN CA 20 MG TABLET (FP) PO SCH (23:10)
[2019-02-26] MEDS: methylPREDNISolone NA SUCC 40 MG/1 ML VIAL IVPUSH SCH ×4 (03:49→22:20)
[2019-02-26] MEDS: HEPARIN NA (PORCINE) 5,000 UNITS/ML 1ML VIAL SQ SCH ×3 (06:21→22:20)
[2019-02-26] MEDS: PROPOFOL 1,000,000 MCG/100 ML VIAL IVPB SCH (06:26)
[2019-02-26] MEDS: ALBUTEROL SO4 2.5/IPRATROPIUM 0.5 INH SOL 3 ML VIAL.NEB. NEB SCH ×4 (08:18→20:45)
--- NOTE | 2019-02-26 09:35 | PN ---
Physical Exam: SUBJECTIVE: Patient seen and examined. No c/o overnight. Sedation vacation attempted, pt able to follow commands but agitated. Failed CPAP trial, was tachycardic and tachypneic. Pt still with thick bloody secretions. OBJECTIVE: Vital Signs Period Temp Pulse Resp BP Sys/Gottlieb Pulse Ox Last 24 Hr 97.3 F-98.1 F 53-64 8-14 108-139/51-83 Vital Signs Temp 97.5 F L 02/26/19 10:00 Pulse 54 L 02/26/19 12:00 Resp 17 02/26/19 12:00 BP 117/53 L 02/26/19 12:00 Pulse Ox 97 02/26/19 09:43 Intake & Output 02/25/19 02/26/19 02/26/19 23:59 11:59 23:59 Intake Total 340 Output Total 600 700 Balance -260 -700 Intake: IV 240 DIPRIVAN - 1,000,000 mcg 240 In 100 ml @ 5 MCG/KG/MIN 4.504 mls/hr IVPB TITR EFRAIN Rx#:[id number] IVPB 100 Output: Urine 600 700 Meade 600 700 Other: Voiding Method Indwelling Catheter Indwelling Catheter Bowel Movement No # Bowel Movements 1 Body Mass Index (BMI) 59.1 GENERAL: The patient is awake, alert, and agitated, morbidly obese. EYES: PERRL, extraocular movements intact ENT: ETT, OGT- 8/ LUNGS: Distant breath sounds with rhonchi HEART: Regular rate and rhythm, S1, S2 (distant). ABDOMEN: Obese, Soft, nontender, nondistended, normoactive bowel sounds EXTREMITIES: 2+ pulses, warm, well-perfused, Healed RLE scar. NEUROLOGICAL: Agitated off sedation CBC, BMP 02/26/19 10:50 02/26/19 10:50 Laboratory Results - last 24 hr 02/25/19 02/25/19 02/25/19 06:08 12:40 16:57 Neutrophils % (Manual) 85.9 H Band Neutrophils % 7.1 Lymphocytes % (Manual) 5.0 L D Monocytes % (Manual) 1 L Eosinophils % (Manual) 0.0 Basophils % (Manual) 0.0 Myelocytes % (Man) 0 Promyelocytes % (Man) 0 Blast Cells % (Manual) 0 Metamyelocytes 1 D Hypochromia 0 Platelet Estimate Normal Polychromasia 0 Poikilocytosis 0 Anisocytosis 1+ Macrocytosis 1+ POC Glucometer 228 152 02/25/19 23:08 Neutrophils % (Manual) Band Neutrophils % Lymphocytes % (Manual) Monocytes % (Manual) Eosinophils % (Manual) Basophils % (Manual) Myelocytes % (Man) Promyelocytes % (Man) Blast Cells % (Manual) Metamyelocytes Hypochromia Platelet Estimate Polychromasia Poikilocytosis Anisocytosis Macrocytosis POC Glucometer 137 Active Medications Generic Name Dose Route Start Last Admin Trade Name Freq PRN Reason Stop Dose Admin Acetaminophen 650 mg 02/23/19 17:14 Tylenol - PO Q6H PRN PAIN LEVEL 1-5 Albuterol Sulfate 1 amp 02/23/19 17:14 Ventolin 0.083% Nebulizer Soln - NEB Q4H PRN SHORT OF BREATH/WHEEZING Albuterol/Ipratropium 1 amp 02/23/19 20:00 02/26/19 08:18 Duoneb - NEB 1 amp RQID EFRAIN Administration Aspirin 81 mg 02/24/19 10:00 02/25/19 09:07 Asa - PO Not Given DAILY [facility] Atorvastatin Calcium 20 mg 02/23/19 22:00 02/25/19 23:10 Lipitor - PO 20 mg HS EFRAIN Administration Calcium Carbonate/Cholecalciferol 2 tab 02/24/19 10:00 02/25/19 09:11 Os-Jorge 500+D - PO Not Given DAILY [facility] Clopidogrel Bisulfate 75 mg 02/24/19 10:00 02/25/19 09:11 Plavix - PO Not Given DAILY [facility] Docusate Sodium 300 mg 02/24/19 10:00 02/25/19 09:07 Colace - PO Not Given DAILY [facility] Gabapentin 300 mg 02/23/19 22:00 02/25/19 21:52 Neurontin - PO Not Given BID [facility] Guaifenesin 10 ml 02/23/19 17:14 Robitussin - PO Q6H PRN COUGH Heparin Sodium (Porcine) 5,000 unit 02/23/19 22:00 02/26/19 06:21 Heparin - SQ 5,000 unit TID EFRAIN Administration Ceftriaxone Sodium 1 gm/ 50 mls @ 100 mls/hr 02/24/19 10:00 02/25/19 09:11 Dextrose IVPB 100 mls/hr DAILY [facility] Administration Propofol 1,000,000 mcg in 100 mls @ 4.504 mls/hr 02/23/19 22:15 02/26/19 06: 26 Diprivan - IVPB 20 mcg/kg/min TITR EFRAIN 18.017 mls/hr Administration Protocol 5 MCG/KG/MIN Insulin Aspart 1 vial 02/24/19 11:00 02/25/19 23:11 Novolog Vial Sliding Scale - SQ Not Given ACHS EFRAIN Protocol Methylprednisolone Sodium Succinate 60 mg 02/23/19 21:00 02/26/19 03:49 Solu-Medrol - IVPUSH 60 mg Q6H-IV EFRAIN Administration Nystatin 1 applic 02/23/19 22:00 02/25/19 23:11 Nystop Powder - TP 1 applic BID EFRAIN Administration Ondansetron HCl 8 mg 02/23/19 17:14 Zofran Injection IVPB Q8H PRN NAUSEA Pantoprazole Sodium 20 mg 02/24/19 10:00 02/25/19 09:11 Protonix - PO Not Given DAILY [facility] Sodium Zirconium Cyclosilicate 10 gm 02/24/19 14:45 02/25/19 09:08 Lokelma PO Not Given DAILY [facility] Ambulatory Orders Aspirin [ASA -] 81 mg PO DAILY 10/05/13 Calcium 500Mg/Vit-D 200 Units [Os-Jorge 500+D -] 2 tab PO DAILY tab 01/24/18 Docusate Sodium [Colace -] 300 mg PO DAILY 03/30/18 Guaifenesin [Robitussin -] 10 ml PO Q6H PRN cup 04/19/18 Insulin Sliding Scale [Novolog Vial Sliding Scale -] 1 vial SQ ACHS units 04/19 Pantoprazole Sodium [Protonix -] 20 mg PO DAILY tablet.ec 04/19/18 Amlodipine Besylate [Norvasc -] 10 mg PO DAILY #30 tablet 05/26/18 Ammonium Lactate Lotion [Lac-Hydrin 12] 1 applic TP DAILY PRN #1 bottle Bacitracin - [Bacitracin Topical Ointment -] 1 applic TP DAILY #1 tube 05/26/18 Clopidogrel Bisulfate [Plavix -] 75 mg PO DAILY #30 tablet 05/26/18 Furosemide [Lasix -] 40 mg PO DAILY #30 tablet 05/26/18 Gabapentin [Neurontin -] 300 mg PO BID #60 capsule 05/26/18 Guaifenesin Dm [Mucinex Dm -] 2 tablet PO BID tab.er.12h 05/26/18 Losartan Potassium [Cozaar -] 50 mg PO DAILY #30 tablet 05/26/18 Morphine *Immediate Release* [Msir -] 30 mg PO Q4H PRN #90 tab MDD 120mg Morphine *Sr* [Ms Contin -] 45 mg PO BID #60 tablet.sa MDD 90 mg 05/26/18 Nystatin Powder [Nystop Powder -] 1 applic TP DAILY #1 bottle 05/26/18 Simvastatin [Zocor -] 40 mg PO HS #30 tablet 05/26/18 Tiotropium Turner [Spiriva Respimat] 2 puff IH DAILY #1 inhaler 05/26/18 predniSONE [Deltasone] 20 mg PO DAILY #5 tablet 05/26/18 Microbiology 02/21/19 06:38 Blood - Peripheral Venous Blood Culture - Preliminary NO GROWTH OBTAINED AFTER 96 HOURS, INCUBATION TO CONTINUE FOR 1 DAYS. 02/21/19 06:38 Blood - Peripheral Venous Blood Culture - Preliminary NO GROWTH OBTAINED AFTER 96 HOURS, INCUBATION TO CONTINUE FOR 1 DAYS. 02/19/19 21:07 Blood - Peripheral Venous Blood Culture - Final NO GROWTH AFTER 5 DAYS INCUBATION 02/19/19 21:07 Blood - Peripheral Venous Blood Culture - Final Staphylococcus Epidermidis 02/20/19 02:36 Urine - Urine Meade Urine Culture - Final Escherichia Coli ASSESSMENT/PLAN: Pt is a 73 yo F with PMHx of DM, asthma, morbid obesity, CAD s/p stent placement , HTN, HLD presented 02/19 for acute hypoxic hypercapnic respiratory failure, intubated for CO2 narcosis. 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 today, with tachycardia and tachypnea -intubated, full vent support -sedated, daily sed aparna's #CV -acute on chronic HR w/ preserved EF -Echo 04/2018: normal LVEF-- valves not well visualized -c/w asa, plavix, lipitor daily -EKG 02/19: NSR [id number] -cardio following -holding home htn meds (amlodipine, losartan) -Daily weights -Monitor outputs #Pulm -Intubated on vent; /40%/5 -CXR -COPD -NIKHIL -C/w duonebs, solumedrol, alb neb #GI -OGT placed -Cont tube feeds #Renal -SANGITA; trend cr, improving -iv lasix 40 mg stat -Lokelma given -hyperkalemia resolved -renal U/S: no hydro noted of R kidney; L kidney difficult to visualize -follow meade outputs -renal following #Endo -HbA1c 4.5% -ISS -BGMs ACHS #ID -Leucocytosis- mild could be in setting of steroids -E coli UTI -Blood cx's + S. epidermidis; repeat blood cx negative -Urine cx + E. Coli -Hx of + ESBL in blood culture 03/2018 -C/w ceftriaxone for UTI (02/23) -ID following-- Dr. Doran #FEN -no standing fluids -Kyperkalemia resolved; trend bmp -OGT feeds glucerna #PPX -Heparin SQ -Protonix 20mg daily Visit type - Emergency Visit Emergency Visit: Yes ED Registration Date: 02/19/19 Care time: The patient presented to the Emergency Department on the above date and was hospitalized for further evaluation of their emergent condition. - New Patient This patient is new to me today: No - Critical Care Critical Care patient: Yes Total Critical Care Time (in minutes): 35 Critical Care Statement: The care of this patient involved high complexity decision making to prevent further life threatening deterioration of the patient 's condition and/or to evaluate & treat vital organ system(s) failure or risk of failure. - Discharge Referral Referred to [facility] Med [facility].C.: No ATTENDING PHYSICIAN STATEMENT I saw and evaluated the patient. I reviewed the resident's note and discussed the case with the resident. I agree with the resident's findings and plan as documented. SUBJECTIVE: OBJECTIVE: ASSESSMENT AND PLAN:
[2019-02-26] MEDS ORDERED: DEXTROSE 5%-WATER - 50 ML IVPB ONE (09:46)
[2019-02-26] MEDS ORDERED: PT OWN MED DRAWER 7, Y5N ONE (09:46)
[2019-02-26] MEDS ORDERED: cefTRIAXone SODIUM 1 GM VIAL ONE (09:46)
[2019-02-26] MEDS: CLOPIDOGREL BISULFATE 75 MG TABLET (FP) PO SCH (10:15)
[2019-02-26] MEDS ORDERED: FUROSEMIDE 40 MG/4 ML INJECTABLE VIAL IVPUSH ONE (10:15)
[2019-02-26] MEDS: PANTOPRAZOLE 20 MG TABLET (FP) PO SCH (10:15)
[2019-02-26] MEDS: SODIUM ZIRCONIUM CYCLOSILICATE (LOKELMA) 5 GM PACKET PO SCH (10:16)
[2019-02-26] MEDS: GABAPENTIN 300 MG CAPSULE (FP) PO SCH (10:16)
[2019-02-26] MEDS: DOCUSATE SODIUM 100 MG CAPSULE (FP) PO SCH (10:16)
[2019-02-26] MEDS: CALCIUM 500MG/VIT-D 200 UNITS COMBO TABLET (FP) PO SCH (10:16)
[2019-02-26] MEDS: ASPIRIN 81 MG CHEWABLE TABLETS PO SCH (10:16)
[2019-02-26] MEDS: NYSTATIN POWDER 100,000 UNITS/GM - 15 GM TOPICAL POWDER TP SCH ×2 (10:17→22:21)
[2019-02-26] MEDS: CEFTRIAXONE 1 GM in DEXTROSE 5%-WATER - 50 ML IVPB SCH (10:22)
--- NOTE | 2019-02-26 10:59 | PN ---
Teaching Attending Note Name of Resident: Zeynep Valentine ATTENDING PHYSICIAN STATEMENT I saw and evaluated the patient. I reviewed the resident's note and discussed the case with the resident. I agree with the resident's findings and plan as documented. SUBJECTIVE: Pt seen and examined in the ICU. Remains intubated, arousable but agitated off sedation. Tachypneic on CPAP/PS, placed back on assist control. OBJECTIVE: Vital Signs Period Temp Pulse Resp BP Sys/Gottlieb Pulse Ox Last 24 Hr 97.3 F-97.8 F 53-60 8-14 108-139/51-83 97-97 Intake & Output 02/23/19 02/24/19 02/25/19 02/26/19 23:59 23:59 23:59 23:59 Intake Total 1100 574 629 Output Total 500 1400 2300 700 Balance 600 -826 -5261 -700 Weight 151.5 kg 146.9 kg Gen: intubated, sedated Heart: RRR Lung: decreased breath sounds at the bases Abd: soft, nontender Ext: + edema CBC, BMP 02/25/19 06:08 02/25/19 06:08 Active Medications Acetaminophen (Tylenol -) 650 mg PO Q6H PRN PRN Reason: PAIN LEVEL 1-5 Albuterol Sulfate (Ventolin 0.083% Nebulizer Soln -) 1 amp NEB Q4H PRN PRN Reason: SHORT OF BREATH/WHEEZING Albuterol/Ipratropium (Duoneb -) 1 amp NEB RQID [facility] Last Admin: 02/26/19 08:18 Dose: 1 amp Aspirin (Asa -) 81 mg PO DAILY [facility] Last Admin: 02/26/19 10:16 Dose: 81 mg Atorvastatin Calcium (Lipitor -) 20 mg PO HS [facility] Last Admin: 02/25/19 23:10 Dose: 20 mg Calcium Carbonate/Cholecalciferol (Os-Jorge 500+D -) 2 tab PO DAILY [facility] Last Admin: 02/26/19 10:16 Dose: 2 tab Clopidogrel Bisulfate (Plavix -) 75 mg PO DAILY [facility] Last Admin: 02/26/19 10:15 Dose: 75 mg Docusate Sodium (Colace -) 300 mg PO DAILY [facility] Last Admin: 02/26/19 10:16 Dose: Not Given Gabapentin (Neurontin -) 300 mg PO BID [facility] Last Admin: 02/26/19 10:16 Dose: 300 mg Guaifenesin (Robitussin -) 10 ml PO Q6H PRN PRN Reason: COUGH Heparin Sodium (Porcine) (Heparin -) 5,000 unit SQ TID [facility] Last Admin: 02/26/19 06:21 Dose: 5,000 unit Ceftriaxone Sodium 1 gm/ (Dextrose) 50 mls @ 100 mls/hr IVPB DAILY [facility] Last Admin: 02/26/19 10:22 Dose: 100 mls/hr Dexmedetomidine HCl 200 mcg/ (Sodium Chloride) 50 mls @ 7.34 mls/hr IVPB TITR EFRAIN Insulin Aspart (Novolog Vial Sliding Scale -) 1 vial SQ ACHS [facility]; Protocol Last Admin: 02/25/19 23:11 Dose: Not Given Methylprednisolone Sodium Succinate (Solu-Medrol -) 60 mg IVPUSH Q6H-IV [facility] Last Admin: 02/26/19 09:45 Dose: 60 mg Nystatin (Nystop Powder -) 1 applic TP BID [facility] Last Admin: 02/26/19 10:17 Dose: 1 applic Ondansetron HCl (Zofran Injection) 8 mg IVPB Q8H PRN PRN Reason: NAUSEA Pantoprazole Sodium (Protonix -) 20 mg PO DAILY [facility] Last Admin: 02/26/19 10:15 Dose: 20 mg Sodium Zirconium Cyclosilicate (Lokelma) 10 gm PO DAILY [facility] Last Admin: 02/26/19 10:16 Dose: 10 gm ASSESSMENT AND PLAN: Acute Hypoxic and Hypercapneic Respiratory Failure Acute COPD Exacerbation Acute on Chronic Diastolic Heart Failure UTI r/o Pneumonia CAD DM Morbid Obesity Likely Obstructive Sleep Apnea - continue antibiotics - lasix - monitor urine output, creatinine - daily weights - continue medrol - inhaled bronchodilators - O2 to keep SpO2 >90% - daily sedation vacations to assess mental status - spontaneous breathing trials as tolerated - enteral feeds - DVT/GI prophylaxis critical care time spent in reviewing chart, evaluating patient and formulating plan 35 min Problem List - Problems (1) COPD exacerbation Code(s): J44.1 - CHRONIC OBSTRUCTIVE PULMONARY DISEASE W (ACUTE) EXACERBATION
[2019-02-26 11:18] LABS: BASO % 0.1 % (0-2.0); EOS % 1.6 % (0-4.5); HEMATOCRIT 35.1 % (32.4-45.2); HEMOGLOBIN 11.5 GM/dL (10.7-15.3); LYMPH % 2.3 % (8-40); MCH 28.8 pg (25.7-33.7); MCHC 32.7 g/dl (32.0-36.0); MEAN CELL VOLUME 88.1 fl (80-96); MEAN PLT VOLUME 8.3 fl (7.5-11.1); MONO % 3.4 % (3.8-10.2); NEUT % 92.6 % (42.8-82.8); PLATELET COUNT 178 K/MM3 (134-434); RBC 3.98 M/mm3 (3.60-5.2); WHITE BLOOD COUNT 10.5 K/mm3 (4.0-10.0)
[2019-02-26 11:38] LABS: BLOOD UREA NITROGEN 70.2 mg/dL (7-18); CALCIUM 8.5 mg/dL (8.5-10.1); CREATININE 1.9 mg/dL (0.55-1.3); MAGNESIUM 2.4 mg/dL (1.8-2.4); POTASSIUM 4.7 mmol/L (3.5-5.1)
--- NOTE | 2019-02-26 11:40 | PN ---
Progress Note, Physician Chief Complaint: Cardiology for Dr. Simpson History of Present Illness: Remains intubated and sedated on ventilator. Tachypneic on CPAP/PS, placed back on assist control, no events on telemetry. - Current Medication List Current Medications: Active Medications Acetaminophen (Tylenol -) 650 mg PO Q6H PRN PRN Reason: PAIN LEVEL 1-5 Albuterol Sulfate (Ventolin 0.083% Nebulizer Soln -) 1 amp NEB Q4H PRN PRN Reason: SHORT OF BREATH/WHEEZING Albuterol/Ipratropium (Duoneb -) 1 amp NEB RQID [facility] Last Admin: 02/26/19 08:18 Dose: 1 amp Aspirin (Asa -) 81 mg PO DAILY [facility] Last Admin: 02/26/19 10:16 Dose: 81 mg Atorvastatin Calcium (Lipitor -) 20 mg PO HS [facility] Last Admin: 02/25/19 23:10 Dose: 20 mg Calcium Carbonate/Cholecalciferol (Os-Jorge 500+D -) 2 tab PO DAILY [facility] Last Admin: 02/26/19 10:16 Dose: 2 tab Clopidogrel Bisulfate (Plavix -) 75 mg PO DAILY [facility] Last Admin: 02/26/19 10:15 Dose: 75 mg Docusate Sodium (Colace -) 300 mg PO DAILY [facility] Last Admin: 02/26/19 10:16 Dose: Not Given Gabapentin (Neurontin -) 300 mg PO BID [facility] Last Admin: 02/26/19 10:16 Dose: 300 mg Guaifenesin (Robitussin -) 10 ml PO Q6H PRN PRN Reason: COUGH Heparin Sodium (Porcine) (Heparin -) 5,000 unit SQ TID [facility] Last Admin: 02/26/19 06:21 Dose: 5,000 unit Ceftriaxone Sodium 1 gm/ (Dextrose) 50 mls @ 100 mls/hr IVPB DAILY [facility] Last Admin: 02/26/19 10:22 Dose: 100 mls/hr Dexmedetomidine HCl 200 mcg/ (Sodium Chloride) 50 mls @ 7.34 mls/hr IVPB TITR EFRAIN Insulin Aspart (Novolog Vial Sliding Scale -) 1 vial SQ ACHS [facility]; Protocol Last Admin: 02/25/19 23:11 Dose: Not Given Methylprednisolone Sodium Succinate (Solu-Medrol -) 60 mg IVPUSH Q6H-IV [facility] Last Admin: 02/26/19 09:45 Dose: 60 mg Nystatin (Nystop Powder -) 1 applic TP BID [facility] Last Admin: 02/26/19 10:17 Dose: 1 applic Ondansetron HCl (Zofran Injection) 8 mg IVPB Q8H PRN PRN Reason: NAUSEA Pantoprazole Sodium (Protonix -) 20 mg PO DAILY [facility] Last Admin: 02/26/19 10:15 Dose: 20 mg Sodium Zirconium Cyclosilicate (Lokelma) 10 gm PO DAILY [facility] Last Admin: 02/26/19 10:16 Dose: 10 gm - Objective Vital Signs: Vital Signs Temperature 97.7 F 02/26/19 06:00 Pulse Rate 56 L 02/26/19 08:00 Respiratory Rate 11 02/26/19 09:43 Blood Pressure 117/66 02/26/19 08:00 O2 Sat by Pulse Oximetry (%) 97 02/26/19 09:43 Constitutional: Yes: No Distress, Calm Neck: Yes: Supple Cardiovascular: Yes: Regular Rate and Rhythm Respiratory: Yes: Intubated, Mechanically Ventilated, Rhonchi Gastrointestinal: Yes: Normal Bowel Sounds, Soft, Abdomen, Obese Edema: Yes Integumentary: Yes: Venous Stasis Changes Labs: CBC, BMP 02/26/19 10:50 02/26/19 10:50 INR, PTT INR 1.10 (0.83-1.09) H 02/19/19 21:07 - ....Imaging EKG: Report Reviewed (Tele: SR) Assessment/Plan - Problems (1) Diastolic CHF Assessment/Plan: Intubated; Pt has been on losartan in the past; problematic now with elevated BUN/Cr. IV diuresis as needed with monitor diuretic response, renal fxn and electrolytes Repeat ECHO (04/2018 ECHO showed normal LVEF, but evaluation of valves could not be made). Code(s): I50.30 - UNSPECIFIED DIASTOLIC (CONGESTIVE) HEART FAILURE (2) Renal insufficiency Assessment/Plan: Renal US negative for hydronephrosus, resume ARB once acute on CKD and hyperkalemia resolves Code(s): N28.9 - DISORDER OF KIDNEY AND URETER, UNSPECIFIED (3) Sleep apnea Assessment/Plan: On nightly CPAP sleep studies,, if not done already, per pulmonary. Code(s): G47.30 - SLEEP APNEA, UNSPECIFIED (4) Anxiety and depression Code(s): F41.9 - ANXIETY DISORDER, UNSPECIFIED; F32.9 - MAJOR DEPRESSIVE DISORDER, SINGLE EPISODE, UNSPECIFIED (5) HTN (hypertension) Code(s): I10 - ESSENTIAL (PRIMARY) HYPERTENSION Qualifiers: (6) Hyperlipidemia Assessment/Plan: Total cholesterol 116 mg/dL. On atorvastatin Code(s): E78.5 - HYPERLIPIDEMIA, UNSPECIFIED (7) Morbid obesity Assessment/Plan: pt has had this condition for years, with attendant increase in cardiac and other health risks. Code(s): E66.01 - MORBID (SEVERE) OBESITY DUE TO EXCESS CALORIES (8) Pericardial effusion Assessment/Plan: f/u ECHO Code(s): I31.3 - PERICARDIAL EFFUSION (NONINFLAMMATORY) (9) Sacral decubitus ulcer, stage II Code(s): L89.152 - PRESSURE ULCER OF SACRAL REGION, STAGE 2 (10) Cough Code(s): R05 - COUGH (11) Urinary tract infection Assessment/Plan: On antibiotics. Fluids at KVO Code(s): N39.0 - URINARY TRACT INFECTION, SITE NOT SPECIFIED Qualifiers: Urinary tract infection type: site unspecified Hematuria presence: without hematuria Qualified Code(s): N39.0 - Urinary tract infection, site not specified (12) Acute respiratory failure Assessment/Plan: Remains intubated, did not tolerate cpap trial O2; bronchodilators; antibiotics, IV steroids with GI protection, enteral feeds , daily SBT Code(s): J96.00 - ACUTE RESPIRATORY FAILURE, UNSP W HYPOXIA OR HYPERCAPNIA (13) Hx of heart artery stent Assessment/Plan: On ASA, Plavix and Lipitor 20 qd TNI < 0.02 Code(s): Z95.5 - PRESENCE OF CORONARY ANGIOPLASTY IMPLANT AND GRAFT Assessment/Plan CCU time spent: 35 minutes.
[2019-02-26] MEDS: INSULIN SLIDING SCALE (NOVOLOG) 1 VIAL SQ SCH ×3 (11:56→22:31)
--- NOTE | 2019-02-26 12:16 | PN ---
Progress Note (short form) - Note Progress Note: no change today and still on vent , She failed her weaning trial for removal of the Ventilator .There is no change from yesterday . And she is tolerating vent well Vital Signs Period Temp Pulse Resp BP Sys/Gottlieb Pulse Ox Last 24 Hr 97.4 F-98.1 F 46-86 11-17 117-142/55-76 97-100 morbidly obese s1s2 rrr lungs diffuse rhonchi anteriorly abd obese tinea, erythema under abdominal flap and groin chronic stasis dermatitis bilateral lower ext. tr edema sedated on ventilator CBC, BMP 02/25/19 06:08 02/25/19 06:08 ASSESSMENT/PLAN: 73 y.o. F PMH nDM, asthma, morbid obesity, CAD s/p stent placement, HTN, HLD presented 02/19 for acute hypoxic hypercapnic respiratory failure. 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 Upper lobes clear -COPD -NIKHIL -C/w duonebs, solumedrol, alb neb #GI -OGT placed -started tube feeds today #Renal -SANGITA; trend cr, improving -c/w lasix -Lokelma -renal U/S: no hydro noted of R kidney; L kidney difficult to visualize -follow meade outputs -renal following #Endo -HbA1c 4.5% -ISS -BGMs ACHS #ID -Blood cx's + S. epidermidis; repeat blood cx negative -Urine cx + E. Coli -Hx of + ESBL in blood culture 03/2018 -C/w ceftriaxone for UTI -ID following-- Dr. Doran #FEN -no standing fluids -Kyperkalemia resolved; trend bmp -OGT feeds glucerna #PPX -Heparin SQ -Protonix 20mg daily Current Medications Acetaminophen (Tylenol -) 650 mg PO Q6H PRN PRN Reason: PAIN LEVEL 1-5 Albuterol Sulfate (Ventolin 0.083% Nebulizer Soln -) 1 amp NEB Q4H PRN PRN Reason: SHORT OF BREATH/WHEEZING Albuterol/Ipratropium (Duoneb -) 1 amp NEB RQID [facility] Last Admin: 02/25/19 16:23 Dose: 1 amp Aspirin (Asa -) 81 mg PO DAILY [facility] Last Admin: 02/25/19 09:07 Dose: Not Given Atorvastatin Calcium (Lipitor -) 20 mg PO HS [facility] Last Admin: 02/24/19 21:57 Dose: 20 mg Calcium Carbonate/Cholecalciferol (Os-Jorge 500+D -) 2 tab PO DAILY [facility] Last Admin: 02/25/19 09:11 Dose: Not Given Clopidogrel Bisulfate (Plavix -) 75 mg PO DAILY [facility] Last Admin: 02/25/19 09:11 Dose: Not Given Docusate Sodium (Colace -) 300 mg PO DAILY [facility] Last Admin: 02/25/19 09:07 Dose: Not Given Gabapentin (Neurontin -) 300 mg PO BID [facility] Last Admin: 02/25/19 09:10 Dose: Not Given Guaifenesin (Robitussin -) 10 ml PO Q6H PRN PRN Reason: COUGH Heparin Sodium (Porcine) (Heparin -) 5,000 unit SQ TID [facility] Last Admin: 02/25/19 15:00 Dose: 5,000 unit Ceftriaxone Sodium 1 gm/ (Dextrose) 50 mls @ 100 mls/hr IVPB DAILY [facility] Last Admin: 02/25/19 09:11 Dose: 100 mls/hr Propofol (Diprivan -) 1,000,000 mcg in 100 mls @ 4.504 mls/hr IVPB TITR [facility]; Protocol Last Admin: 02/25/19 19:12 Dose: 20 mcg/kg/min, 18.017 mls/hr Insulin Aspart (Novolog Vial Sliding Scale -) 1 vial SQ ACHS [facility]; Protocol Last Admin: 02/25/19 17:15 Dose: 2 units Methylprednisolone Sodium Succinate (Solu-Medrol -) 60 mg IVPUSH Q6H-IV [facility] Last Admin: 02/25/19 15:00 Dose: 60 mg Nystatin (Nystop Powder -) 1 applic TP BID [facility] Last Admin: 02/25/19 09:10 Dose: 1 applic Ondansetron HCl (Zofran Injection) 8 mg IVPB Q8H PRN PRN Reason: NAUSEA Pantoprazole Sodium (Protonix -) 20 mg PO DAILY [facility] Last Admin: 02/25/19 09:11 Dose: Not Given Sodium Zirconium Cyclosilicate (Lokelma) 10 gm PO DAILY [facility] Last Admin: 02/25/19 09:08 Dose: Not Given
[2019-02-26 12:45] LABS: ANISOCYTOSIS 0; MACROCYTOSIS 0; PLATELET ESTIMATE NORMAL
[2019-02-26] MEDS: DEXMEDETOMIDINE HCL 200 MCG in SODIUM CHLORIDE 48 ML IVPB SCH (15:15)
[2019-02-26] MEDS ORDERED: PROPOFOL 1,000,000 MCG/100 ML VIAL IVPB SCH (16:30)
--- NOTE | 2019-02-26 17:21 | PN ---
Progress Note (short form) - Note Progress Note: 1. hyperkalemia 2. edema 3. chf 4. cough 5. morbid obesity 6. dm 7. asthma 8. cad 9. acuter resp failure Current Medications Acetaminophen (Tylenol -) 650 mg PO Q6H PRN PRN Reason: PAIN LEVEL 1-5 Albuterol Sulfate (Ventolin 0.083% Nebulizer Soln -) 1 amp NEB Q4H PRN PRN Reason: SHORT OF BREATH/WHEEZING Albuterol/Ipratropium (Duoneb -) 1 amp NEB RQID [facility] Last Admin: 02/26/19 12:01 Dose: 1 amp Aspirin (Asa -) 81 mg PO DAILY [facility] Last Admin: 02/26/19 10:16 Dose: 81 mg Atorvastatin Calcium (Lipitor -) 20 mg PO HS [facility] Last Admin: 02/25/19 23:10 Dose: 20 mg Calcium Carbonate/Cholecalciferol (Os-Jorge 500+D -) 2 tab PO DAILY [facility] Last Admin: 02/26/19 10:16 Dose: 2 tab Clopidogrel Bisulfate (Plavix -) 75 mg PO DAILY [facility] Last Admin: 02/26/19 10:15 Dose: 75 mg Docusate Sodium (Colace -) 300 mg PO DAILY [facility] Last Admin: 02/26/19 10:16 Dose: Not Given Gabapentin (Neurontin -) 300 mg PO BID [facility] Last Admin: 02/26/19 10:16 Dose: 300 mg Guaifenesin (Robitussin -) 10 ml PO Q6H PRN PRN Reason: COUGH Heparin Sodium (Porcine) (Heparin -) 5,000 unit SQ TID [facility] Last Admin: 02/26/19 13:47 Dose: 5,000 unit Ceftriaxone Sodium 1 gm/ (Dextrose) 50 mls @ 100 mls/hr IVPB DAILY [facility] Last Admin: 02/26/19 10:22 Dose: 100 mls/hr Dexmedetomidine HCl 200 mcg/ (Sodium Chloride) 50 mls @ 7.34 mls/hr IVPB TITR [facility] Last Admin: 02/26/19 15:15 Dose: 0.2 mcg/kg/hr, 7.34 mls/hr Propofol (Diprivan -) 1,000,000 mcg in 100 mls @ 4.41 mls/hr IVPB TITR [facility]; Protocol Insulin Aspart (Novolog Vial Sliding Scale -) 1 vial SQ ACHS [facility]; Protocol Last Admin: 02/26/19 11:56 Dose: 4 units Methylprednisolone Sodium Succinate (Solu-Medrol -) 60 mg IVPUSH Q6H-IV [facility] Last Admin: 02/26/19 15:40 Dose: 60 mg Nystatin (Nystop Powder -) 1 applic TP BID [facility] Last Admin: 02/26/19 10:17 Dose: 1 applic Ondansetron HCl (Zofran Injection) 8 mg IVPB Q8H PRN PRN Reason: NAUSEA Pantoprazole Sodium (Protonix -) 20 mg PO DAILY [facility] Last Admin: 02/26/19 10:15 Dose: 20 mg Sodium Zirconium Cyclosilicate (Lokelma) 10 gm PO DAILY [facility] Last Admin: 02/26/19 10:16 Dose: 10 gm Last Vital Signs Temp Pulse Resp BP Pulse Ox 97.5 F L 57 L 15 117/49 L 96 02/26/19 14:00 02/26/19 14:00 02/26/19 14:00 02/26/19 14:00 02/26/19 12:10 Lungs vented Heart reg Abd soft CBC, BMP 02/26/19 10:50 02/26/19 10:50 CBC, BMP 02/25/19 06:08 02/25/19 06:08 IMP- azotemia trending down ckd resp failure on vent- at risk for samara Plan-
[2019-02-26] MEDS ORDERED: DOCUSATE NA 100 MG/10 ML UNIT-DOSE CUPS PO PRN (19:14)
[2019-02-26] MEDS: ATORVASTATIN CA 20 MG TABLET (FP) PO SCH (22:20)
[2019-02-26] MEDS: GABAPENTIN 250 MG/5 ML ORAL SOLUTION, 470 ML BOTTLE PO SCH (22:20)
[2019-02-27] MEDS: DEXMEDETOMIDINE HCL 200 MCG in SODIUM CHLORIDE 48 ML IVPB SCH (01:35)
[2019-02-27] MEDS: methylPREDNISolone NA SUCC 40 MG/1 ML VIAL IVPUSH SCH ×3 (03:55→17:01)
[2019-02-27] MEDS: HEPARIN NA (PORCINE) 5,000 UNITS/ML 1ML VIAL SQ SCH ×3 (06:23→22:22)
[2019-02-27 06:31] LABS: BASO % 0.2 % (0-2.0); EOS % 0.1 % (0-4.5); HEMATOCRIT 32.1 % (32.4-45.2); HEMOGLOBIN 10.7 GM/dL (10.7-15.3); LYMPH % 3.2 % (8-40); MCH 29.1 pg (25.7-33.7); MCHC 33.3 g/dl (32.0-36.0); MEAN CELL VOLUME 87.4 fl (80-96); MEAN PLT VOLUME 8.6 fl (7.5-11.1); MONO % 2.3 % (3.8-10.2); NEUT % 94.2 % (42.8-82.8); PLATELET COUNT 134 K/MM3 (134-434); RBC 3.67 M/mm3 (3.60-5.2); RDW 16.8 % (11.6-15.6); WHITE BLOOD COUNT 7.9 K/mm3 (4.0-10.0)
[2019-02-27] MEDS: INSULIN SLIDING SCALE (NOVOLOG) 1 VIAL SQ SCH ×5 (06:35→22:38)
[2019-02-27 06:59] LABS: ALBUMIN 2.1 g/dl (3.4-5.0); BILIRUBIN,TOTAL 0.3 mg/dL (0.2-1); BLOOD UREA NITROGEN 70.1 mg/dL (7-18); CALCIUM 7.7 mg/dL (8.5-10.1); CREATININE 1.7 mg/dL (0.55-1.3); MAGNESIUM 2.2 mg/dL (1.8-2.4); PHOSPHOROUS 4.8 mg/dL (2.5-4.9); POTASSIUM 4.8 mmol/L (3.5-5.1); TOT PROT 4.5 g/dl (6.4-8.2)
[2019-02-27] MEDS: ALBUTEROL SO4 2.5/IPRATROPIUM 0.5 INH SOL 3 ML VIAL.NEB. NEB SCH ×4 (08:00→20:30)
[2019-02-27] MEDS ORDERED: cefTRIAXone SODIUM 1 GM VIAL ONE (08:58)
[2019-02-27] MEDS ORDERED: DEXTROSE 5%-WATER - 50 ML IVPB ONE (08:59)
[2019-02-27] MEDS: ASPIRIN 81 MG CHEWABLE TABLETS PO SCH (09:26)
[2019-02-27] MEDS: CEFTRIAXONE 1 GM in DEXTROSE 5%-WATER - 50 ML IVPB SCH (09:26)
[2019-02-27] MEDS: PANTOPRAZOLE 20 MG TABLET (FP) PO SCH (09:27)
[2019-02-27] MEDS: CALCIUM 500MG/VIT-D 200 UNITS COMBO TABLET (FP) PO SCH (09:27)
[2019-02-27] MEDS: SODIUM ZIRCONIUM CYCLOSILICATE (LOKELMA) 5 GM PACKET PO SCH (09:27)
[2019-02-27] MEDS: CLOPIDOGREL BISULFATE 75 MG TABLET (FP) PO SCH (09:27)
[2019-02-27] MEDS: NYSTATIN POWDER 100,000 UNITS/GM - 15 GM TOPICAL POWDER TP SCH ×2 (09:28→22:22)
[2019-02-27] MEDS: GABAPENTIN 250 MG/5 ML ORAL SOLUTION, 470 ML BOTTLE PO SCH ×2 (10:15→22:22)
[2019-02-27] MEDS ORDERED: FUROSEMIDE 40 MG/4 ML INJECTABLE VIAL IVPUSH ONE (10:58)
--- NOTE | 2019-02-27 10:59 | PN ---
Teaching Attending Note Name of Resident: Jonny Rosado ATTENDING PHYSICIAN STATEMENT I saw and evaluated the patient. I reviewed the resident's note and discussed the case with the resident. I agree with the resident's findings and plan as documented. SUBJECTIVE: Pt seen and examined in the ICU. Intubated, sedated on precedex. Tolerated CPAP/ PS and subsequently extubated during rounds. OBJECTIVE: Vital Signs Period Temp Pulse Resp BP Sys/Gottlieb Pulse Ox Last 24 Hr 97.5 F-98.6 F 48-67 12-17 117-168/49-75 93-98 Intake & Output 02/24/19 02/25/19 02/26/19 02/27/19 23:59 23:59 23:59 23:59 Intake Total 574 629 279.7 1030 Output Total 1400 2300 1725 450 Balance -826 -1671 -1445.3 580 Weight 151.5 kg 146.9 kg 147.009 kg 146.284 kg Gen: extubated Heart: RRR Lung: distant breath sounds Abd: soft, nontender Ext: + edema CBC, BMP 02/27/19 05:50 02/27/19 06:00 Active Medications Acetaminophen (Tylenol -) 650 mg PO Q6H PRN PRN Reason: PAIN LEVEL 1-5 Albuterol Sulfate (Ventolin 0.083% Nebulizer Soln -) 1 amp NEB Q4H PRN PRN Reason: SHORT OF BREATH/WHEEZING Albuterol/Ipratropium (Duoneb -) 1 amp NEB RQID [facility] Last Admin: 02/27/19 08:00 Dose: 1 amp Aspirin (Asa -) 81 mg PO DAILY [facility] Last Admin: 02/27/19 09:26 Dose: 81 mg Atorvastatin Calcium (Lipitor -) 20 mg PO HS [facility] Last Admin: 02/26/19 22:20 Dose: 20 mg Calcium Carbonate/Cholecalciferol (Os-Jorge 500+D -) 2 tab PO DAILY [facility] Last Admin: 02/27/19 09:27 Dose: 2 tab Clopidogrel Bisulfate (Plavix -) 75 mg PO DAILY [facility] Last Admin: 02/27/19 09:27 Dose: 75 mg Docusate Sodium (Colace Liquid -) 300 mg PO DAILY PRN PRN Reason: CONSTIPATION Gabapentin (Neurontin Oral Liquid -) 300 mg PO BID [facility] Last Admin: 02/26/19 22:20 Dose: 300 mg Guaifenesin (Robitussin -) 10 ml PO Q6H PRN PRN Reason: COUGH Heparin Sodium (Porcine) (Heparin -) 5,000 unit SQ TID [facility] Last Admin: 02/27/19 06:23 Dose: 5,000 unit Ceftriaxone Sodium 1 gm/ (Dextrose) 50 mls @ 100 mls/hr IVPB DAILY [facility] Last Admin: 02/27/19 09:26 Dose: 100 mls/hr Dexmedetomidine HCl 200 mcg/ (Sodium Chloride) 50 mls @ 7.34 mls/hr IVPB TITR [facility] Last Admin: 02/27/19 01:35 Dose: 0.2 mcg/kg/hr, 7.34 mls/hr Propofol (Diprivan -) 1,000,000 mcg in 100 mls @ 4.41 mls/hr IVPB TITR [facility]; Protocol Last Titration: 02/27/19 06:34 Dose: 10 mcg/kg/min, 8.821 mls/hr Insulin Aspart (Novolog Vial Sliding Scale -) 1 vial SQ ACHS [facility]; Protocol Last Admin: 02/27/19 06:35 Dose: 4 units Methylprednisolone Sodium Succinate (Solu-Medrol -) 60 mg IVPUSH Q6H-IV [facility] Last Admin: 02/27/19 09:26 Dose: 60 mg Nystatin (Nystop Powder -) 1 applic TP BID [facility] Last Admin: 02/27/19 09:28 Dose: 1 applic Ondansetron HCl (Zofran Injection) 8 mg IVPB Q8H PRN PRN Reason: NAUSEA Pantoprazole Sodium (Protonix -) 20 mg PO DAILY [facility] Last Admin: 02/27/19 09:27 Dose: 20 mg Sodium Zirconium Cyclosilicate (Lokelma) 10 gm PO DAILY [facility] Last Admin: 02/27/19 09:27 Dose: 10 gm ASSESSMENT AND PLAN: Acute Hypoxic and Hypercapneic Respiratory Failure Acute COPD Exacerbation Acute on Chronic Diastolic Heart Failure UTI r/o Pneumonia CAD DM Morbid Obesity Likely Obstructive Sleep Apnea - continue antibiotics - lasix today - monitor urine output, creatinine - daily weights - taper medrol - inhaled bronchodilators - O2 to keep SpO2 >90% - pt extubated - enteral feeds - DVT/GI prophylaxis - continue ICU monitoring critical care time spent in reviewing chart, evaluating patient and formulating plan 35 min Problem List - Problems (1) COPD exacerbation Code(s): J44.1 - CHRONIC OBSTRUCTIVE PULMONARY DISEASE W (ACUTE) EXACERBATION
[2019-02-27 11:24] LABS: ANISOCYTOSIS 0; MACROCYTOSIS 0; PLATELET ESTIMATE DECREASED
--- NOTE | 2019-02-27 12:30 | PN ---
Physical Exam: SUBJECTIVE: Patient seen and examined in the morning. No acute events overnight , no events on cardiac monitoring. Patient was lightly sedated and unable to communicate with examiner. OBJECTIVE: Vital Signs Period Temp Pulse Resp BP Sys/Gottlieb Pulse Ox Last 24 Hr 97.5 F-98.6 F 48-67 12-17 117-168/49-75 93-98 GENERAL: The patient is arousable but is lightly sedated with Dexmedetomidine. HEAD: Normal with no signs of trauma. EYES: PERRL, extraocular movements intact, sclera anicteric. NECK: Trachea midline, full range of motion, supple. LUNGS: Breath sounds equal bilaterally. No crackles or wheezes appreciated. HEART: Regular rate and rhythm, S1, S2 without murmur, rub or gallop. ABDOMEN: Obese body habitus. Soft, nontender, nondistended, normoactive bowel sounds. EXTREMITIES: 2+ pulses, warm, well-perfused, no edema. NEUROLOGICAL: Cranial nerves II through XII grossly intact. SKIN: Warm, dry, normal turgor, no rashes or lesions noted Laboratory Results - last 24 hr 02/26/19 02/26/19 02/26/19 10:50 15:46 22:25 WBC RBC Hgb Hct MCV MCH MCHC RDW Plt Count MPV Absolute Neuts (auto) Neutrophils % Neutrophils % (Manual) 91.0 H Band Neutrophils % 0.0 Lymphocytes % Lymphocytes % (Manual) 2.5 L D Monocytes % Monocytes % (Manual) 6 D Eosinophils % Eosinophils % (Manual) 0.8 D Basophils % Basophils % (Manual) 0.0 Myelocytes % (Man) 0 Promyelocytes % (Man) 0 Blast Cells % (Manual) 0 Nucleated RBC % 0 Metamyelocytes 0 D Hypochromia 0 Platelet Estimate Normal Polychromasia 0 Poikilocytosis 0 Anisocytosis 0 Microcytosis 0 Macrocytosis 0 Sodium Potassium Chloride Carbon Dioxide Anion Gap BUN Creatinine Est GFR (CKD-EPI)AfAm Est GFR (CKD-EPI)NonAf POC Glucometer 197 244 Random Glucose Calcium Phosphorus Magnesium Total Bilirubin AST ALT Alkaline Phosphatase Total Protein Albumin 02/27/19 02/27/19 02/27/19 05:50 06:00 06:30 WBC 7.9 RBC 3.67 Hgb 10.7 Hct 32.1 L MCV 87.4 MCH 29.1 MCHC 33.3 RDW 16.8 H Plt Count 134 D MPV 8.6 Absolute Neuts (auto) 7.4 Neutrophils % 94.2 H Neutrophils % (Manual) 93.0 H Band Neutrophils % 1.0 Lymphocytes % 3.2 L D Lymphocytes % (Manual) 2.0 L Monocytes % 2.3 L Monocytes % (Manual) 2 L Eosinophils % 0.1 D Eosinophils % (Manual) 0.0 D Basophils % 0.2 Basophils % (Manual) 0.0 Myelocytes % (Man) 1 D Promyelocytes % (Man) 0 Blast Cells % (Manual) 0 Nucleated RBC % 0 Metamyelocytes 0 Hypochromia 0 Platelet Estimate Decreased Polychromasia 0 Poikilocytosis 1+ Anisocytosis 0 Microcytosis 0 Macrocytosis 0 Sodium 136 Potassium 4.8 Chloride 101 Carbon Dioxide 30 Anion Gap 5 L BUN 70.1 H Creatinine 1.7 H Est GFR (CKD-EPI)AfAm 34.32 Est GFR (CKD-EPI)NonAf 29.61 POC Glucometer 217 Random Glucose 245 H Calcium 7.7 L Phosphorus 4.8 Magnesium 2.2 Total Bilirubin 0.3 AST 8 L ALT 16 Alkaline Phosphatase 78 Total Protein 4.5 L Albumin 2.1 L 02/27/19 11:26 WBC RBC Hgb Hct MCV MCH MCHC RDW Plt Count MPV Absolute Neuts (auto) Neutrophils % Neutrophils % (Manual) Band Neutrophils % Lymphocytes % Lymphocytes % (Manual) Monocytes % Monocytes % (Manual) Eosinophils % Eosinophils % (Manual) Basophils % Basophils % (Manual) Myelocytes % (Man) Promyelocytes % (Man) Blast Cells % (Manual) Nucleated RBC % Metamyelocytes Hypochromia Platelet Estimate Polychromasia Poikilocytosis Anisocytosis Microcytosis Macrocytosis Sodium Potassium Chloride Carbon Dioxide Anion Gap BUN Creatinine Est GFR (CKD-EPI)AfAm Est GFR (CKD-EPI)NonAf POC Glucometer 223 Random Glucose Calcium Phosphorus Magnesium Total Bilirubin AST ALT Alkaline Phosphatase Total Protein Albumin Active Medications Generic Name Dose Route Start Last Admin Trade Name Freq PRN Reason Stop Dose Admin Acetaminophen 650 mg 02/23/19 17:14 Tylenol - PO Q6H PRN PAIN LEVEL 1-5 Albuterol Sulfate 1 amp 02/23/19 17:14 Ventolin 0.083% Nebulizer Soln - NEB Q4H PRN SHORT OF BREATH/WHEEZING Albuterol/Ipratropium 1 amp 02/23/19 20:00 02/27/19 12:04 Duoneb - NEB 1 amp RQID [facility] Administration Aspirin 81 mg 02/24/19 10:00 02/27/19 09:26 Asa - PO 81 mg DAILY [facility] Administration Atorvastatin Calcium 20 mg 02/23/19 22:00 02/26/19 22:20 Lipitor - PO 20 mg HS [facility] Administration Calcium Carbonate/Cholecalciferol 2 tab 02/24/19 10:00 02/27/19 09:27 Os-Jorge 500+D - PO 2 tab DAILY [facility] Administration Clopidogrel Bisulfate 75 mg 02/24/19 10:00 02/27/19 09:27 Plavix - PO 75 mg DAILY [facility] Administration Docusate Sodium 300 mg 02/26/19 19:14 Colace Liquid - PO DAILY PRN CONSTIPATION Gabapentin 300 mg 02/26/19 22:00 02/26/19 22:20 Neurontin Oral Liquid - PO 300 mg BID [facility] Administration Guaifenesin 10 ml 02/23/19 17:14 Robitussin - PO Q6H PRN COUGH Heparin Sodium (Porcine) 5,000 unit 02/23/19 22:00 02/27/19 06:23 Heparin - SQ 5,000 unit TID [facility] Administration Ceftriaxone Sodium 1 gm/ 50 mls @ 100 mls/hr 02/24/19 10:00 02/27/19 09:26 Dextrose IVPB 100 mls/hr DAILY [facility] Administration Dexmedetomidine HCl 200 mcg/ 50 mls @ 7.34 mls/hr 02/26/19 10:45 02/27/19 10: 36 Sodium Chloride IVPB 0 mcg/kg/hr TITR [facility] 0 mls/hr Infusion 0.2 MCG/KG/HR Propofol 1,000,000 mcg in 100 mls @ 4.41 mls/hr 02/26/19 16:30 02/27/19 06:34 Diprivan - IVPB 10 mcg/kg/min TITR [facility] 8.821 mls/hr Titration Protocol 5 MCG/KG/MIN Insulin Aspart 1 vial 02/24/19 11:00 02/27/19 11:40 Novolog Vial Sliding Scale - SQ 4 units ACHS [facility] Administration Protocol Methylprednisolone Sodium Succinate 40 mg 02/27/19 18:00 Solu-Medrol - IVPUSH Q8H-IV [facility] Nystatin 1 applic 02/23/19 22:00 02/27/19 09:28 Nystop Powder - TP 1 applic BID [facility] Administration Ondansetron HCl 8 mg 02/23/19 17:14 Zofran Injection IVPB Q8H PRN NAUSEA Pantoprazole Sodium 20 mg 02/24/19 10:00 02/27/19 09:27 Protonix - PO 20 mg DAILY [facility] Administration Sodium Zirconium Cyclosilicate 10 gm 02/24/19 14:45 02/27/19 09:27 Lokelma PO 10 gm DAILY [facility] Administration ASSESSMENT/PLAN: 73 F PMH of DM, asthma, morbid obesity, CAD s/p stents, CKD who presented to ED with complaints of congestion, wheezing, cough currently being treated for COPD/ CHF exacerbation. Due to worsening respiratory failure and worsening mental status patient was intubated overnight. Neuro Patient is was on Precedex sedation. Was stopped and extubated. Currently mentating well and able to tolerate BiPAP Pulm Acute Hypercapnic Respiratory Failure, Respiratory Acidosis COPD exacerbation -BiPAP -Continue Solumedrol 40 mg IV Q8H -Duonebs -Albuterol Cardiac Acute on Chronic Heart Failure (w/ preserved EF) Hx of CAD and HTN -Holding home amlodipine -Home aspirin 81, plavix 75 mg, lipitor 20 -Daily weights, I&O -Lasix 40 mg IV today. -Chest X-Ray showed worsening. -F/U Echo Endo Hx of Diabetes, Morbid Obesity, Hyperkalemia -Sliding scale insulin UTI SANGITA on CKD Hyperkalemia -Ceftriaxone -[place] Catheter -Hold home losartan -Lokelma. Repeat BMP -Renal U/S Prophylaxis DVT: SQH GI: Home Protonix 20 F: Oral Hydration E: Monitor BMP N: NPO Dispo: ICU monitoring. Visit type - Emergency Visit Emergency Visit: Yes ED Registration Date: 02/19/19 Care time: The patient presented to the Emergency Department on the above date and was hospitalized for further evaluation of their emergent condition. - New Patient This patient is new to me today: No - Critical Care Critical Care patient: Yes Total Critical Care Time (in minutes): 45 Critical Care Statement: The care of this patient involved high complexity decision making to prevent further life threatening deterioration of the patient 's condition and/or to evaluate & treat vital organ system(s) failure or risk of failure. ATTENDING PHYSICIAN STATEMENT I saw and evaluated the patient. I reviewed the resident's note and discussed the case with the resident. I agree with the resident's findings and plan as documented. SUBJECTIVE: OBJECTIVE: ASSESSMENT AND PLAN:
--- NOTE | 2019-02-27 13:53 | PN ---
Progress Note, Physician History of Present Illness: Pt seen and examined at bedside. She is awake and alert. She is now extubated. She remains in the ICU. - Current Medication List Current Medications: Active Medications Acetaminophen (Tylenol -) 650 mg PO Q6H PRN PRN Reason: PAIN LEVEL 1-5 Albuterol Sulfate (Ventolin 0.083% Nebulizer Soln -) 1 amp NEB Q4H PRN PRN Reason: SHORT OF BREATH/WHEEZING Albuterol/Ipratropium (Duoneb -) 1 amp NEB RQID [facility] Last Admin: 02/27/19 12:04 Dose: 1 amp Aspirin (Asa -) 81 mg PO DAILY [facility] Last Admin: 02/27/19 09:26 Dose: 81 mg Atorvastatin Calcium (Lipitor -) 20 mg PO HS [facility] Last Admin: 02/26/19 22:20 Dose: 20 mg Calcium Carbonate/Cholecalciferol (Os-Jorge 500+D -) 2 tab PO DAILY [facility] Last Admin: 02/27/19 09:27 Dose: 2 tab Clopidogrel Bisulfate (Plavix -) 75 mg PO DAILY [facility] Last Admin: 02/27/19 09:27 Dose: 75 mg Docusate Sodium (Colace Liquid -) 300 mg PO DAILY PRN PRN Reason: CONSTIPATION Gabapentin (Neurontin Oral Liquid -) 300 mg PO BID [facility] Last Admin: 02/26/19 22:20 Dose: 300 mg Guaifenesin (Robitussin -) 10 ml PO Q6H PRN PRN Reason: COUGH Heparin Sodium (Porcine) (Heparin -) 5,000 unit SQ TID [facility] Last Admin: 02/27/19 06:23 Dose: 5,000 unit Ceftriaxone Sodium 1 gm/ (Dextrose) 50 mls @ 100 mls/hr IVPB DAILY [facility] Last Admin: 02/27/19 09:26 Dose: 100 mls/hr Dexmedetomidine HCl 200 mcg/ (Sodium Chloride) 50 mls @ 7.34 mls/hr IVPB TITR [facility] Last Infusion: 02/27/19 10:36 Dose: 0 mcg/kg/hr, 0 mls/hr Propofol (Diprivan -) 1,000,000 mcg in 100 mls @ 4.41 mls/hr IVPB TITR [facility]; Protocol Last Titration: 02/27/19 06:34 Dose: 10 mcg/kg/min, 8.821 mls/hr Insulin Aspart (Novolog Vial Sliding Scale -) 1 vial SQ ACHS [facility]; Protocol Last Admin: 02/27/19 11:40 Dose: 4 units Methylprednisolone Sodium Succinate (Solu-Medrol -) 40 mg IVPUSH Q8H-IV [facility] Nystatin (Nystop Powder -) 1 applic TP BID [facility] Last Admin: 02/27/19 09:28 Dose: 1 applic Ondansetron HCl (Zofran Injection) 8 mg IVPB Q8H PRN PRN Reason: NAUSEA Pantoprazole Sodium (Protonix -) 20 mg PO DAILY [facility] Last Admin: 02/27/19 09:27 Dose: 20 mg Sodium Zirconium Cyclosilicate (Lokelma) 10 gm PO DAILY [facility] Last Admin: 02/27/19 09:27 Dose: 10 gm - Objective Vital Signs: Vital Signs Temperature 98.2 F 02/27/19 06:00 Pulse Rate 60 02/27/19 10:43 Respiratory Rate 17 02/27/19 09:00 Blood Pressure 168/75 02/27/19 08:00 O2 Sat by Pulse Oximetry (%) 97 02/27/19 10:43 Constitutional: Yes: Calm Eyes: Yes: Conjunctiva Clear HENT: Yes: Atraumatic Neck: Yes: Supple Cardiovascular: Yes: S1, S2 Respiratory: Yes: On Nasal O2 Gastrointestinal: Yes: Soft Genitourinary: Yes: WNL Musculoskeletal: Yes: WNL Edema: Yes Edema: LLE: 2+, RLE: 2+ Neurological: Yes: Oriented Labs: CBC, BMP 02/27/19 05:50 02/27/19 06:00 INR, PTT INR 1.10 (0.83-1.09) H 02/19/19 21:07 - ....Imaging Chest X-ray: Report Reviewed Problem List - Problems (1) Hyperkalemia Code(s): E87.5 - HYPERKALEMIA (2) CHF (congestive heart failure) Code(s): I50.9 - HEART FAILURE, UNSPECIFIED Qualifiers: Heart failure type: unspecified Heart failure chronicity: unspecified Qualified Code(s): I50.9 - Heart failure, unspecified (3) Renal insufficiency Code(s): N28.9 - DISORDER OF KIDNEY AND URETER, UNSPECIFIED Assessment/Plan Current Medications Generic Name Dose Route Start Last Admin Trade Name Freq PRN Reason Stop Dose Admin Acetaminophen 650 mg 02/23/19 17:14 Tylenol - PO Q6H PRN PAIN LEVEL 1-5 Albuterol Sulfate 1 amp 02/23/19 17:14 Ventolin 0.083% Nebulizer Soln - NEB Q4H PRN SHORT OF BREATH/WHEEZING Albuterol/Ipratropium 1 amp 02/23/19 20:00 02/27/19 12:04 Duoneb - NEB 1 amp RQID [facility] Administration Aspirin 81 mg 02/24/19 10:00 02/27/19 09:26 Asa - PO 81 mg DAILY [facility] Administration Atorvastatin Calcium 20 mg 02/23/19 22:00 02/26/19 22:20 Lipitor - PO 20 mg HS [facility] Administration Calcium Carbonate/Cholecalciferol 2 tab 02/24/19 10:00 02/27/19 09:27 Os-Jorge 500+D - PO 2 tab DAILY [facility] Administration Clopidogrel Bisulfate 75 mg 02/24/19 10:00 02/27/19 09:27 Plavix - PO 75 mg DAILY [facility] Administration Docusate Sodium 300 mg 02/26/19 19:14 Colace Liquid - PO DAILY PRN CONSTIPATION Gabapentin 300 mg 02/26/19 22:00 02/26/19 22:20 Neurontin Oral Liquid - PO 300 mg BID [facility] Administration Guaifenesin 10 ml 02/23/19 17:14 Robitussin - PO Q6H PRN COUGH Heparin Sodium (Porcine) 5,000 unit 02/23/19 22:00 02/27/19 06:23 Heparin - SQ 5,000 unit TID [facility] Administration Ceftriaxone Sodium 1 gm/ 50 mls @ 100 mls/hr 02/24/19 10:00 02/27/19 09:26 Dextrose IVPB 100 mls/hr DAILY [facility] Administration Dexmedetomidine HCl 200 mcg/ 50 mls @ 7.34 mls/hr 02/26/19 10:45 02/27/19 10: 36 Sodium Chloride IVPB 0 mcg/kg/hr TITR [facility] 0 mls/hr Infusion 0.2 MCG/KG/HR Propofol 1,000,000 mcg in 100 mls @ 4.41 mls/hr 02/26/19 16:30 02/27/19 06:34 Diprivan - IVPB 10 mcg/kg/min TITR [facility] 8.821 mls/hr Titration Protocol 5 MCG/KG/MIN Insulin Aspart 1 vial 02/24/19 11:00 02/27/19 11:40 Novolog Vial Sliding Scale - SQ 4 units ACHS [facility] Administration Protocol Methylprednisolone Sodium Succinate 40 mg 02/27/19 18:00 Solu-Medrol - IVPUSH Q8H-IV [facility] Nystatin 1 applic 02/23/19 22:00 02/27/19 09:28 Nystop Powder - TP 1 applic BID [facility] Administration Ondansetron HCl 8 mg 02/23/19 17:14 Zofran Injection IVPB Q8H PRN NAUSEA Pantoprazole Sodium 20 mg 02/24/19 10:00 02/27/19 09:27 Protonix - PO 20 mg DAILY [facility] Administration Sodium Zirconium Cyclosilicate 10 gm 02/24/19 14:45 02/27/19 09:27 Lokelma PO 10 gm DAILY [facility] Administration Impression 1. hyperkalemia 2. edema 3. chf 4. cough 5. morbid obesity 6. dm 7. asthma 8. cad 9. acuter resp failure 10. SANGITA Plan - agree with lasix - d/c lokelma - potassium stable - renal function is improving - keep negative - repeat labs in am - arb and amlodipine on hold
--- NOTE | 2019-02-27 15:18 | CONSULT ---
Admitting History and Physical - Primary Care Physician PCP: Marleni Horner - Admission History of Present Illness: 73 y.o. F PMH DM, asthma, morbid obesity, CAD s/p stent placement, HTN, HLD presented 02/19 for acute hypoxic hypercapnic respiratory failure. Intubated 3 days. Extubated today. This is my first consult for this pt. History Source: Patient, Medical Record Limitations to Obtaining History: Clinical Condition - Past Medical History Cardiovascular: Yes: CAD (s/p cardiac stents, last cath in Mar 2014 showed nonobstructive disease), HTN, Hyperlipdemia Pulmonary: Yes: COPD Gastrointestinal: Yes: Constipation Renal/: Yes: Renal Inusuff ...: No Infectious Disease: Yes: MRSA (h/o MRSA several years ago) Psych: Yes: Anxiety, Panic Musculoskeletal: Yes: Osteoarthritis Endocrine: Yes: Diabetes Mellitus, Other (Morbid Obesity) - Past Surgical History Past Surgical History: Yes: Cholecystectomy, Hysterectomy, Joint Replacement (R knee as above) - Smoking History Smoking history: Never smoked Have you smoked in the past 12 months: No Aproximately how many cigarettes per day: 0 If you are a former smoker, when did you quit?: 15 years ago - Alcohol/Substance Use Hx Alcohol Use: No History of Substance Use: reports: None - Social History ADL: Family Assistance History of Recent Travel: No History - Admission Reason For Visit: CONGESTIVE HEART FAILURE - Diagnostics X-ray: Report Reviewed - General Mental Status: Alert and Oriented, Awake and Alert, Able to Follow Commands Attention: Intact Ability to Follow Directions: Excellent Head/Neck Control: WFL - Hearing Hearing: Normal Speech Evaluation - Communication Primary Language: [place] Communication: Yes: Within Normal Limits Oral Expression Ability: Yes: No Impairment - Speech Production Able to Make Needs Known: Yes: WNL - Speech Characteristics Voice Loudness: Mildly Soft/Quiet Voice Pitch: Yes: Normal Voice Phonatory-based Quality: Yes: Dysphonia (mild) Speech Clarity: < 100% Nasal Resonance: Normal Articulation: Yes: Precise Rate of Speech: Intact - Language/Auditory Comprehension Follows: Yes: 2 Stage Simple Commands - Language/Verbal Expression Able to Respond to Simple Queries: Yes: WNL Able to Communicate Wants and Needs: Yes: WNL Functional Communication Status: Yes: WNL - Swallow Evaluation/Bedside Assessment Current Nutritional Intake: NPO Oral Secretions: Yes: WFL Dentition: Yes: Missing Teeth (only a couple of teeth. dentures at home) Facial Symmetry at Rest: Symmetrical Facial Symmetry on Retraction: Symmetrical Sensation: Normal Against Resistance Opening: Normal Against Resistance Closing: Normal Pucker Lips: Normal Smile: Normal Lingual Movement: Normal, Symmetric Lingual Speed of Movement: Normal Lingual Movement Strgth Against Opposition: Normal Lingual Movement Characteristics: Normal Velopharyngeal Movement: Normal Laryngeal Elevation: WFL Laryngeal Movement: Able to Palpate Rate of Intake: WFL Bolus Size: WFL Labial Seal: WFL Chewing: WFL Oral Prep Time: WFL A-P Transit: WFL Pocketing: None Timing of Swallow: Delayed Coughing/Throat Clear: No Change in Voice: No Recommendations - Speech Evaluation, Impression/Plan Impression: Extubated today. Mildly delayed swallow onset. Aspiration with continuous drinking of thin liquids - Dysphagia Impressions/Plan Dysphagia Impressions: Mild Impairment, Risk of Aspiration *Silent aspiration: cannot be R/O at bedside Dysphagia Treatment Plan: Small Bites, Trial Feedings, Safe Rate, 1/2 tsp. at a time, Elevate HOB during feed - Recommendations Diet Consistency: Dysphagia Minced Medication Administration: Crushed with applesauce Liquids: Thin Liquids (single sips)
--- NOTE | 2019-02-27 15:42 | PN ---
Progress Note (short form) - Note Progress Note: extubated this am, doing quite well Vital Signs Period Temp Pulse Resp BP Sys/Gottlieb Pulse Ox Last 24 Hr 97.5 F-98.6 F 48-67 12-17 127-168/56-75 93-98 CBC, BMP 02/27/19 05:50 02/27/19 06:00 morbidly obese s1s2 rrr lungs clear anteriorly abd obese tinea, erythema under abdominal flap and groin chronic stasis dermatitis bilateral lower ext. tr edema more awake and alert oriented to place and events Active Medications Acetaminophen (Tylenol -) 650 mg PO Q6H PRN PRN Reason: PAIN LEVEL 1-5 Albuterol Sulfate (Ventolin 0.083% Nebulizer Soln -) 1 amp NEB Q4H PRN PRN Reason: SHORT OF BREATH/WHEEZING Albuterol/Ipratropium (Duoneb -) 1 amp NEB RQID [facility] Last Admin: 02/27/19 15:22 Dose: 1 amp Aspirin (Asa -) 81 mg PO DAILY [facility] Last Admin: 02/27/19 09:26 Dose: 81 mg Atorvastatin Calcium (Lipitor -) 20 mg PO HS [facility] Last Admin: 02/26/19 22:20 Dose: 20 mg Calcium Carbonate/Cholecalciferol (Os-Jorge 500+D -) 2 tab PO DAILY [facility] Last Admin: 02/27/19 09:27 Dose: 2 tab Clopidogrel Bisulfate (Plavix -) 75 mg PO DAILY [facility] Last Admin: 02/27/19 09:27 Dose: 75 mg Docusate Sodium (Colace Liquid -) 300 mg PO DAILY PRN PRN Reason: CONSTIPATION Gabapentin (Neurontin Oral Liquid -) 300 mg PO BID [facility] Last Admin: 02/26/19 22:20 Dose: 300 mg Guaifenesin (Robitussin -) 10 ml PO Q6H PRN PRN Reason: COUGH Heparin Sodium (Porcine) (Heparin -) 5,000 unit SQ TID [facility] Last Admin: 02/27/19 06:23 Dose: 5,000 unit Ceftriaxone Sodium 1 gm/ (Dextrose) 50 mls @ 100 mls/hr IVPB DAILY [facility] Last Admin: 02/27/19 09:26 Dose: 100 mls/hr Dexmedetomidine HCl 200 mcg/ (Sodium Chloride) 50 mls @ 7.34 mls/hr IVPB TITR [facility] Last Infusion: 02/27/19 10:36 Dose: 0 mcg/kg/hr, 0 mls/hr Propofol (Diprivan -) 1,000,000 mcg in 100 mls @ 4.41 mls/hr IVPB TITR [facility]; Protocol Last Titration: 02/27/19 06:34 Dose: 10 mcg/kg/min, 8.821 mls/hr Insulin Aspart (Novolog Vial Sliding Scale -) 1 vial SQ ACHS [facility]; Protocol Last Admin: 02/27/19 11:40 Dose: 4 units Methylprednisolone Sodium Succinate (Solu-Medrol -) 40 mg IVPUSH Q8H-IV [facility] Nystatin (Nystop Powder -) 1 applic TP BID [facility] Last Admin: 02/27/19 09:28 Dose: 1 applic Ondansetron HCl (Zofran Injection) 8 mg IVPB Q8H PRN PRN Reason: NAUSEA Pantoprazole Sodium (Protonix -) 20 mg PO DAILY [facility] Last Admin: 02/27/19 09:27 Dose: 20 mg acute respiratory failure due to hypoventilation, NIKHIL UTI CKD-acute on chr. baseline creat~1.2 staph coag neg. anaerobic bottlex1 on blood culture-contaminant acute CHF metabolic encephalopathy dm htn cad morbid obesity BIPAP at night and as tolerated iv diuresis iv steroids riss iv ceftriaxone for couple more days swallow eval noted-ordered diet pt to start tomorrow
--- NOTE | 2019-02-27 16:15 | ECHO ---
Name: MARICRUZ ESPARZA Exam:Adult Echocardiogram Study Date: 02/27/2019 11:54 AM Age: 73 yrs Reason For Study: chf,respiratory failure Height: 62 in Weight: 322 lb BSA: 2.3 m2 MMode/2D Measurements & Calculations IVSd: 1.4 cm Ao root diam: 4.3 cm LVIDd: 4.6 cm LA dimension: 5.1 cm LVIDs: 2.6 cm ACS: 1.5 cm LVPWd: 1.3 cm IVSs: 1.5 cm LVPWs: 1.4 cm EDV(Teich): 97.4 ml ESV(Teich): 25.0 ml LVOT diam: 2.0 cm Doppler Measurements & Calculations MV E max omar: 79.0 cm/sec Ao V2 max: 191.7 cm/sec MV A max omar: 92.1 cm/sec Ao max P.7 mmHg MV E/A: 0.86 Ao V2 mean: 128.5 cm/sec Ao mean P.5 mmHg Ao V2 VTI: 39.8 cm DAVID(I,D): 2.1 cm2 DAVID(V,D): 1.7 cm2 LV V1 max P.5 mmHg SV(LVOT): 82.9 ml LV V1 mean P.0 mmHg LV V1 max: 105.4 cm/sec LV V1 mean: 81.8 cm/sec LV V1 VTI: 26.4 cm Med Peak E' Omar: 5.4 cm/sec Med E/e': 14.7 Lat Peak E' Omar: 5.0 cm/sec Lat E/e': 15.9 Procedure A complete two-dimensional transthoracic echocardiogram was performed (2D, M-mode, Doppler and color flow Doppler). Technically severely limited study due to extremely poor acoustic window. Left Ventricle The left ventricle is normal in size. There is mild concentric left ventricular hypertrophy. Left shan tricular systolic function is normal. Ejection Fraction = 60-65%. No regional wall motion abnormalities noted. Right Ventricle The right ventricle is not well visualized. Atria The left atrium is not well visualized. Right atrium not well visualized. Mitral Valve There is mild mitral annular calcification. There is no mitral regurgitation noted. Tricuspid Valve The tricuspid valve is not well visualized. Aortic Valve The aortic valve is not well visualized. Pulmonic Valve The pulmonic valve is not well visualized. Great Vessels The aortic root is not well visualized. Pericardium/Pleura There is no pericardial effusion. Interpretation Summary Technically severely limited study due to extremely poor acoustic window The left ventricle is normal in size. There is mild concentric left ventricular hypertrophy. Left ventricular systolic function is normal. No regional wall motion abnormalities noted. Ejection Fraction = 60-65%. The right ventricle is not well visualized. The left atrium is not well visualized. Right atrium not well visualized. There is mild mitral annular calcification. Valvular regurgitations could not be accurately assessed due to poor acoustic window There is no pericardial effusion. Darion Rosas MD 02/27/2019 04:14 PM
[2019-02-27] MEDS ORDERED: INSULIN (NOVOLOG) ASPART 100 UNITS/ML 10ML VIAL ONE (16:25)
[2019-02-27] MEDS: ATORVASTATIN CA 20 MG TABLET (FP) PO SCH (22:22)
[2019-02-28] MEDS: methylPREDNISolone NA SUCC 40 MG/1 ML VIAL IVPUSH SCH ×3 (01:45→17:09)
[2019-02-28] MEDS ORDERED: morphine CARPU-JECT 4 MG/1 ML DISP.SYRIN IVPUSH ONE (02:36)
[2019-02-28] MEDS ORDERED: MORPHINE SULFATE 2 MG/ML VIAL IVPUSH PRN (02:38)
[2019-02-28] MEDS: DEXMEDETOMIDINE HCL 200 MCG in SODIUM CHLORIDE 48 ML IVPB SCH (02:43)
[2019-02-28] MEDS ORDERED: morphine SULFATE 4 MG/ML VIAL IVPUSH PRN (03:24)
[2019-02-28] MEDS: HEPARIN NA (PORCINE) 5,000 UNITS/ML 1ML VIAL SQ SCH ×3 (06:10→21:23)
[2019-02-28] MEDS: INSULIN SLIDING SCALE (NOVOLOG) 1 VIAL SQ SCH ×4 (06:16→21:24)
[2019-02-28 06:54] LABS: BASO % 0.1 % (0-2.0); EOS % 1.2 % (0-4.5); HEMATOCRIT 30.5 % (32.4-45.2); HEMOGLOBIN 9.9 GM/dL (10.7-15.3); MCH 28.6 pg (25.7-33.7); MCHC 32.5 g/dl (32.0-36.0); MEAN CELL VOLUME 87.9 fl (80-96); MEAN PLT VOLUME 8.7 fl (7.5-11.1); MONO % 2.7 % (3.8-10.2); PLATELET COUNT 159 K/MM3 (134-434); RBC 3.48 M/mm3 (3.60-5.2); RDW 16.8 % (11.6-15.6); WHITE BLOOD COUNT 12.1 K/mm3 (4.0-10.0)
[2019-02-28 07:10] LABS: ALBUMIN 2.2 g/dl (3.4-5.0); BILIRUBIN,TOTAL 0.4 mg/dL (0.2-1); BLOOD UREA NITROGEN 72.5 mg/dL (7-18); CALCIUM 7.7 mg/dL (8.5-10.1); CREATININE 1.8 mg/dL (0.55-1.3); MAGNESIUM 2.2 mg/dL (1.8-2.4); PHOSPHOROUS 4.3 mg/dL (2.5-4.9); POTASSIUM 4.6 mmol/L (3.5-5.1); TOT PROT 4.6 g/dl (6.4-8.2)
[2019-02-28] MEDS: ALBUTEROL SO4 2.5/IPRATROPIUM 0.5 INH SOL 3 ML VIAL.NEB. NEB SCH ×4 (07:25→20:35)
[2019-02-28] MEDS ORDERED: cefTRIAXone SODIUM 1 GM VIAL ONE (08:41)
[2019-02-28] MEDS ORDERED: DEXTROSE 5%-WATER - 50 ML IVPB ONE (08:42)
--- NOTE | 2019-02-28 09:08 | PN ---
Progress Note, Physician Chief Complaint: Pt. extubated this morning; alert, able to hold brief conversation; changed to nasal cannula. History of Present Illness: The patient is a 73 year old white female with a past medical history of morbid obesity, CAD s/p stents, HTN, HLD, COPD/?asthma, history of MRSA, sleep apnea, OA, diabetes, now here today for evaluation of cough. The patient reports that she has had a productive cough for the past few days. She also reports nausea, vomiting, and diarrhea but states that these have been chronic and intermittent. Patient notes chronic lower extremity edema but states that it is worse today. Patient denies headache, lightheadedness. Denies fever, chills. Denies chest pain, shortness of breath. Denies diarrhea. Allergies: metoprolol, metronidazole PCP: Vinicio Leahy - Current Medication List Current Medications: Active Medications Acetaminophen (Tylenol -) 650 mg PO Q6H PRN PRN Reason: PAIN LEVEL 1-5 Last Admin: 02/27/19 22:19 Dose: 650 mg Albuterol Sulfate (Ventolin 0.083% Nebulizer Soln -) 1 amp NEB Q4H PRN PRN Reason: SHORT OF BREATH/WHEEZING Last Admin: 02/28/19 00:57 Dose: 1 amp Albuterol/Ipratropium (Duoneb -) 1 amp NEB RQID [facility] Last Admin: 02/28/19 07:25 Dose: 1 amp Aspirin (Asa -) 81 mg PO DAILY [facility] Last Admin: 02/27/19 09:26 Dose: 81 mg Atorvastatin Calcium (Lipitor -) 20 mg PO HS [facility] Last Admin: 02/27/19 22:22 Dose: 20 mg Calcium Carbonate/Cholecalciferol (Os-Jorge 500+D -) 2 tab PO DAILY [facility] Last Admin: 02/27/19 09:27 Dose: 2 tab Clopidogrel Bisulfate (Plavix -) 75 mg PO DAILY [facility] Last Admin: 02/27/19 09:27 Dose: 75 mg Docusate Sodium (Colace Liquid -) 300 mg PO BID [facility] Gabapentin (Neurontin Oral Liquid -) 300 mg PO BID [facility] Last Admin: 02/27/19 22:22 Dose: 300 mg Guaifenesin (Robitussin -) 10 ml PO Q6H PRN PRN Reason: COUGH Last Admin: 02/27/19 22:19 Dose: 10 ml Heparin Sodium (Porcine) (Heparin -) 5,000 unit SQ TID [facility] Last Admin: 02/28/19 06:10 Dose: 5,000 unit Ceftriaxone Sodium 1 gm/ (Dextrose) 50 mls @ 100 mls/hr IVPB DAILY [facility] Last Admin: 02/27/19 09:26 Dose: 100 mls/hr Insulin Aspart (Novolog Vial Sliding Scale -) 1 vial SQ ACHS [facility]; Protocol Last Admin: 02/28/19 06:16 Dose: 4 units Methylprednisolone Sodium Succinate (Solu-Medrol -) 40 mg IVPUSH Q8H-IV [facility] Last Admin: 02/28/19 01:45 Dose: 40 mg Morphine Sulfate (Msir -) 30 mg PO Q4H PRN PRN Reason: PAIN LEVEL 6-10 Nystatin (Nystop Powder -) 1 applic TP BID [facility] Last Admin: 02/27/19 22:22 Dose: 1 applic Ondansetron HCl (Zofran Injection) 8 mg IVPB Q8H PRN PRN Reason: NAUSEA Last Admin: 02/27/19 22:59 Dose: 8 mg Pantoprazole Sodium (Protonix -) 20 mg PO DAILY [facility] Last Admin: 02/27/19 09:27 Dose: 20 mg - Objective Vital Signs: Vital Signs Temperature 98.1 F 02/28/19 08:00 Pulse Rate 71 02/28/19 08:00 Respiratory Rate 17 02/28/19 08:00 Blood Pressure 134/55 L 02/28/19 08:00 O2 Sat by Pulse Oximetry (%) 99 02/28/19 08:09 Constitutional: Yes: Anxious, Obese Eyes: Yes: WNL HENT: Yes: WNL Neck: Yes: Decreased ROM Cardiovascular: Yes: S1, S2, S4 Respiratory: Yes: Diminished, On Nasal O2 Gastrointestinal: Yes: Soft, Abdomen, Obese ...Rectal Exam: Yes: Deferred Genitourinary: No: Anuria Breast(s): Yes: WNL Musculoskeletal: Yes: Joint Stiffness, Joint Swelling (particulalry right knee ( chronic)), Muscle Weakness Extremities: Yes: Cool, Other (right hand is small/withered (from )) Edema: Yes Edema: LLE: 1+, RLE: 1+ Peripheral Pulses WNL: Yes Integumentary: Yes: Venous Stasis Changes Neurological: Yes: Alert, Weakness Psychiatric: Yes: Alert Labs: CBC, BMP 02/28/19 05:23 02/28/19 05:23 INR, PTT INR 1.10 (0.83-1.09) H 02/19/19 21:07 - ....Imaging Chest X-ray: Image Reviewed Problem List - Problems (1) Diastolic CHF Assessment/Plan: Now extubated. For repeat ECHO. Code(s): I50.30 - UNSPECIFIED DIASTOLIC (CONGESTIVE) HEART FAILURE Qualifiers: Heart failure chronicity: acute on chronic Qualified Code(s): I50.33 - Acute on chronic diastolic (congestive) heart failure (2) Renal insufficiency Assessment/Plan: Renal US: limited study: no hydronephrosis of right; could not evaluate left kidney; f/u with nephrology. Code(s): N28.9 - DISORDER OF KIDNEY AND URETER, UNSPECIFIED (3) Sleep apnea Assessment/Plan: On nightly CPAP sleep studies,, if not done already, per pulmonary. Code(s): G47.30 - SLEEP APNEA, UNSPECIFIED (4) Anxiety and depression Code(s): F41.9 - ANXIETY DISORDER, UNSPECIFIED; F32.9 - MAJOR DEPRESSIVE DISORDER, SINGLE EPISODE, UNSPECIFIED (5) HTN (hypertension) Code(s): I10 - ESSENTIAL (PRIMARY) HYPERTENSION Qualifiers: Hypertension type: essential hypertension Qualified Code(s): I10 - Essential (primary) hypertension (6) Hyperlipidemia Assessment/Plan: Total cholesterol 116 mg/dL. On atorvastatin Code(s): E78.5 - HYPERLIPIDEMIA, UNSPECIFIED (7) Morbid obesity Assessment/Plan: pt has had this condition for years, with attendant increase in cardiac and other health risks. Code(s): E66.01 - MORBID (SEVERE) OBESITY DUE TO EXCESS CALORIES (8) Pericardial effusion Assessment/Plan: by history (not on 04/26 ECHO report); f/u repeat ECHO Code(s): I31.3 - PERICARDIAL EFFUSION (NONINFLAMMATORY) (9) Sacral decubitus ulcer, stage II Code(s): L89.152 - PRESSURE ULCER OF SACRAL REGION, STAGE 2 (10) Cough Code(s): R05 - COUGH (11) Urinary tract infection Assessment/Plan: On antibiotics. Maintain fluids. Code(s): N39.0 - URINARY TRACT INFECTION, SITE NOT SPECIFIED Qualifiers: Urinary tract infection type: site unspecified Hematuria presence: without hematuria Qualified Code(s): N39.0 - Urinary tract infection, site not specified (12) Acute respiratory failure Assessment/Plan: Now intubated. O2; bronchodilators; antibiotics. Code(s): J96.00 - ACUTE RESPIRATORY FAILURE, UNSP W HYPOXIA OR HYPERCAPNIA Qualifiers: Respiratory failure complication: hypoxia and hypercapnia Qualified Code(s) : J96.01 - Acute respiratory failure with hypoxia; J96.02 - Acute respiratory failure with hypercapnia (13) Hx of heart artery stent Assessment/Plan: On ASA and Plavix TNI < 0.02 Code(s): Z95.5 - PRESENCE OF CORONARY ANGIOPLASTY IMPLANT AND GRAFT Assessment/Plan CCU time spent: 35 minutes.
[2019-02-28 09:41] LABS: ANISOCYTOSIS 1+; MACROCYTOSIS 0; PLATELET ESTIMATE NORMAL
[2019-02-28] MEDS: GABAPENTIN 250 MG/5 ML ORAL SOLUTION, 470 ML BOTTLE PO SCH ×2 (10:13→21:38)
[2019-02-28] MEDS: PANTOPRAZOLE 20 MG TABLET (FP) PO SCH (10:14)
[2019-02-28] MEDS: CEFTRIAXONE 1 GM in DEXTROSE 5%-WATER - 50 ML IVPB SCH (10:14)
[2019-02-28] MEDS: DOCUSATE NA 100 MG/10 ML UNIT-DOSE CUPS PO SCH ×2 (10:14→21:24)
[2019-02-28] MEDS: CALCIUM 500MG/VIT-D 200 UNITS COMBO TABLET (FP) PO SCH (10:14)
[2019-02-28] MEDS: ASPIRIN 81 MG CHEWABLE TABLETS PO SCH (10:14)
[2019-02-28] MEDS: CLOPIDOGREL BISULFATE 75 MG TABLET (FP) PO SCH (10:14)
[2019-02-28] MEDS: NYSTATIN POWDER 100,000 UNITS/GM - 15 GM TOPICAL POWDER TP SCH ×2 (10:15→21:25)
[2019-02-28] MEDS ORDERED: FUROSEMIDE 40 MG/4 ML INJECTABLE VIAL IVPUSH ONE (10:46)
--- NOTE | 2019-02-28 11:04 | PN ---
Teaching Attending Note Name of Resident: Donavon Guerrier ATTENDING PHYSICIAN STATEMENT I saw and evaluated the patient. I reviewed the resident's note and discussed the case with the resident. I agree with the resident's findings and plan as documented. SUBJECTIVE: Pt seen and examined in the ICU. Remains extubated on BiPAP. Mental status improved. OBJECTIVE: Vital Signs Period Temp Pulse Resp BP Sys/Gottlieb Pulse Ox Last 24 Hr 97.8 F-98.7 F 70-104 17-20 109-149/48-92 97-100 Intake & Output 02/25/19 02/26/19 02/27/19 02/28/19 23:59 23:59 23:59 23:59 Intake Total 629 279.7 1395 950 Output Total 2300 1725 1100 550 Balance -1671 -1445.3 295 400 Weight 146.9 kg 147.009 kg 146.284 kg 146.556 kg Gen: mildly tachypneic on BiPAP Heart: RRR Lung: distant breath sounds Abd: soft, nontender Ext: + edema CBC, BMP 02/28/19 05:23 02/28/19 05:23 Active Medications Acetaminophen (Tylenol -) 650 mg PO Q6H PRN PRN Reason: PAIN LEVEL 1-5 Last Admin: 02/27/19 22:19 Dose: 650 mg Albuterol Sulfate (Ventolin 0.083% Nebulizer Soln -) 1 amp NEB Q4H PRN PRN Reason: SHORT OF BREATH/WHEEZING Last Admin: 02/28/19 00:57 Dose: 1 amp Albuterol/Ipratropium (Duoneb -) 1 amp NEB RQID [facility] Last Admin: 02/28/19 07:25 Dose: 1 amp Aspirin (Asa -) 81 mg PO DAILY [facility] Last Admin: 02/28/19 10:14 Dose: 81 mg Atorvastatin Calcium (Lipitor -) 20 mg PO HS [facility] Last Admin: 02/27/19 22:22 Dose: 20 mg Calcium Carbonate/Cholecalciferol (Os-Jorge 500+D -) 2 tab PO DAILY [facility] Last Admin: 02/28/19 10:14 Dose: 2 tab Clopidogrel Bisulfate (Plavix -) 75 mg PO DAILY [facility] Last Admin: 02/28/19 10:14 Dose: 75 mg Docusate Sodium (Colace Liquid -) 300 mg PO BID [facility] Last Admin: 02/28/19 10:14 Dose: 300 mg Gabapentin (Neurontin Oral Liquid -) 300 mg PO BID [facility] Last Admin: 02/28/19 10:13 Dose: 300 mg Guaifenesin (Robitussin -) 10 ml PO Q6H PRN PRN Reason: COUGH Last Admin: 02/27/19 22:19 Dose: 10 ml Heparin Sodium (Porcine) (Heparin -) 5,000 unit SQ TID [facility] Last Admin: 02/28/19 06:10 Dose: 5,000 unit Ceftriaxone Sodium 1 gm/ (Dextrose) 50 mls @ 100 mls/hr IVPB DAILY [facility] Last Admin: 02/28/19 10:14 Dose: 100 mls/hr Insulin Aspart (Novolog Vial Sliding Scale -) 1 vial SQ ACHS [facility]; Protocol Last Admin: 02/28/19 06:16 Dose: 4 units Methylprednisolone Sodium Succinate (Solu-Medrol -) 40 mg IVPUSH Q8H-IV [facility] Last Admin: 02/28/19 10:15 Dose: 40 mg Morphine Sulfate (Msir -) 30 mg PO Q4H PRN PRN Reason: PAIN LEVEL 6-10 Nystatin (Nystop Powder -) 1 applic TP BID [facility] Last Admin: 02/28/19 10:15 Dose: 1 applic Ondansetron HCl (Zofran Injection) 8 mg IVPB Q8H PRN PRN Reason: NAUSEA Last Admin: 02/27/19 22:59 Dose: 8 mg Pantoprazole Sodium (Protonix -) 20 mg PO DAILY [facility] Last Admin: 02/28/19 10:14 Dose: 20 mg ASSESSMENT AND PLAN: Acute Hypoxic and Hypercapneic Respiratory Failure improving Acute COPD Exacerbation Acute on Chronic Diastolic Heart Failure UTI r/o Pneumonia CAD DM Morbid Obesity Likely Obstructive Sleep Apnea - continue antibiotics - lasix today - monitor urine output, creatinine - daily weights - taper medrol - inhaled bronchodilators - O2 to keep SpO2 >90% - PO as tolerated - DVT/GI prophylaxis Problem List - Problems (1) COPD exacerbation Code(s): J44.1 - CHRONIC OBSTRUCTIVE PULMONARY DISEASE W (ACUTE) EXACERBATION
--- NOTE | 2019-02-28 11:22 | PN ---
Physical Exam: SUBJECTIVE: Patient seen and examined pt seen and examined this a.m was extubated yesterday and placed on BIPAP. at time of evaluation was on nasal cannula and tolerating PO OBJECTIVE: Vital Signs Period Temp Pulse Resp BP Sys/Gottlieb Pulse Ox Last 24 Hr 97.8 F-98.7 F 70-104 17-20 109-149/48-92 97-100 GEN: Well appearing, NAD, comfortable. AAOx3, obese female. HEENT: NC/AT, EOMI, PERRLA. No facial asymmetry. Moist mucous membranes. Normal voice. Supple neck w/ FROM. CV: S1/S2, RRR, no m/r/g LUNG: CTAB, no wheezes, crackles, rales, rhonchi. GI: soft, ndnt, +BS, no guarding, no rebound. Neg CVAT b/l. No masses. EXTREMITIES: 2+ distal pulses. chronic stasis dermatitis changes bilateral lower extremities SKIN: warm, dry, normal turgor PSYCH: normal mood and affect NEURO: Moving all extremities Laboratory Results - last 24 hr 02/27/19 02/27/19 02/27/19 05:50 11:26 16:15 WBC RBC Hgb Hct MCV MCH MCHC RDW Plt Count MPV Absolute Neuts (auto) Neutrophils % Neutrophils % (Manual) 93.0 H Band Neutrophils % 1.0 Lymphocytes % Lymphocytes % (Manual) 2.0 L Monocytes % Monocytes % (Manual) 2 L Eosinophils % Eosinophils % (Manual) 0.0 D Basophils % Basophils % (Manual) 0.0 Myelocytes % (Man) 1 D Promyelocytes % (Man) 0 Blast Cells % (Manual) 0 Nucleated RBC % 0 Metamyelocytes 0 Hypochromia 0 Platelet Estimate Decreased Polychromasia 0 Poikilocytosis 1+ Anisocytosis 0 Microcytosis 0 Macrocytosis 0 Sodium Potassium Chloride Carbon Dioxide Anion Gap BUN Creatinine Est GFR (CKD-EPI)AfAm Est GFR (CKD-EPI)NonAf POC Glucometer 223 212 Random Glucose Calcium Phosphorus Magnesium Total Bilirubin AST ALT Alkaline Phosphatase Total Protein Albumin 02/27/19 02/28/19 02/28/19 22:32 05:23 05:23 WBC 12.1 H RBC 3.48 L Hgb 9.9 L Hct 30.5 L MCV 87.9 MCH 28.6 MCHC 32.5 RDW 16.8 H Plt Count 159 MPV 8.7 Absolute Neuts (auto) 11.3 H Neutrophils % 94.0 H Neutrophils % (Manual) 90.3 H Band Neutrophils % 0.0 Lymphocytes % 2.0 L D Lymphocytes % (Manual) 2.9 L D Monocytes % 2.7 L Monocytes % (Manual) 4 D Eosinophils % 1.2 D Eosinophils % (Manual) 0.0 Basophils % 0.1 Basophils % (Manual) 0.0 Myelocytes % (Man) 1 Promyelocytes % (Man) 1 D Blast Cells % (Manual) 0 Nucleated RBC % 0 Metamyelocytes 1 D Hypochromia 0 Platelet Estimate Normal Polychromasia 0 Poikilocytosis 0 Anisocytosis 1+ Microcytosis 1+ Macrocytosis 0 Sodium 137 Potassium 4.6 Chloride 100 Carbon Dioxide 30 Anion Gap 7 L BUN 72.5 H Creatinine 1.8 H Est GFR (CKD-EPI)AfAm 32.03 Est GFR (CKD-EPI)NonAf 27.63 POC Glucometer 266 Random Glucose 223 H Calcium 7.7 L Phosphorus 4.3 Magnesium 2.2 Total Bilirubin 0.4 AST 7 L ALT 14 Alkaline Phosphatase 65 Total Protein 4.6 L Albumin 2.2 L 02/28/19 02/28/19 06:09 11:06 WBC RBC Hgb Hct MCV MCH MCHC RDW Plt Count MPV Absolute Neuts (auto) Neutrophils % Neutrophils % (Manual) Band Neutrophils % Lymphocytes % Lymphocytes % (Manual) Monocytes % Monocytes % (Manual) Eosinophils % Eosinophils % (Manual) Basophils % Basophils % (Manual) Myelocytes % (Man) Promyelocytes % (Man) Blast Cells % (Manual) Nucleated RBC % Metamyelocytes Hypochromia Platelet Estimate Polychromasia Poikilocytosis Anisocytosis Microcytosis Macrocytosis Sodium Potassium Chloride Carbon Dioxide Anion Gap BUN Creatinine Est GFR (CKD-EPI)AfAm Est GFR (CKD-EPI)NonAf POC Glucometer 231 300 Random Glucose Calcium Phosphorus Magnesium Total Bilirubin AST ALT Alkaline Phosphatase Total Protein Albumin Active Medications Generic Name Dose Route Start Last Admin Trade Name Freq PRN Reason Stop Dose Admin Acetaminophen 650 mg 02/23/19 17:14 02/27/19 22:19 Tylenol - PO 650 mg Q6H PRN Administration PAIN LEVEL 1-5 Albuterol Sulfate 1 amp 02/23/19 17:14 02/28/19 00:57 Ventolin 0.083% Nebulizer Soln - NEB 1 amp Q4H PRN Administration SHORT OF BREATH/WHEEZING Albuterol/Ipratropium 1 amp 02/23/19 20:00 02/28/19 11:12 Duoneb - NEB 1 amp RQID [facility] Administration Aspirin 81 mg 02/24/19 10:00 02/28/19 10:14 Asa - PO 81 mg DAILY [facility] Administration Atorvastatin Calcium 20 mg 02/23/19 22:00 02/27/19 22:22 Lipitor - PO 20 mg HS [facility] Administration Calcium Carbonate/Cholecalciferol 2 tab 02/24/19 10:00 02/28/19 10:14 Os-Jorge 500+D - PO 2 tab DAILY [facility] Administration Clopidogrel Bisulfate 75 mg 02/24/19 10:00 02/28/19 10:14 Plavix - PO 75 mg DAILY [facility] Administration Docusate Sodium 300 mg 02/28/19 10:00 02/28/19 10:14 Colace Liquid - PO 300 mg BID [facility] Administration Gabapentin 300 mg 02/26/19 22:00 02/28/19 10:13 Neurontin Oral Liquid - PO 300 mg BID [facility] Administration Guaifenesin 10 ml 02/23/19 17:14 02/27/19 22:19 Robitussin - PO 10 ml Q6H PRN Administration COUGH Heparin Sodium (Porcine) 5,000 unit 02/23/19 22:00 02/28/19 06:10 Heparin - SQ 5,000 unit TID [facility] Administration Ceftriaxone Sodium 1 gm/ 50 mls @ 100 mls/hr 02/24/19 10:00 02/28/19 10:14 Dextrose IVPB 100 mls/hr DAILY [facility] Administration Insulin Aspart 1 vial 02/24/19 11:00 02/28/19 11:08 Novolog Vial Sliding Scale - SQ 6 units ACHS [facility] Administration Protocol Methylprednisolone Sodium Succinate 40 mg 02/27/19 18:00 02/28/19 10:15 Solu-Medrol - IVPUSH 40 mg Q8H-IV [facility] Administration Morphine Sulfate 30 mg 02/28/19 08:54 Msir - PO Q4H PRN PAIN LEVEL 6-10 Nystatin 1 applic 02/23/19 22:00 02/28/19 10:15 Nystop Powder - TP 1 applic BID [facility] Administration Ondansetron HCl 8 mg 02/23/19 17:14 02/27/19 22:59 Zofran Injection IVPB 8 mg Q8H PRN Administration NAUSEA Pantoprazole Sodium 20 mg 02/24/19 10:00 02/28/19 10:14 Protonix - PO 20 mg DAILY [facility] Administration ASSESSMENT/PLAN: 73 y/o F hx of asthma, morbid obesity, CAD , HTN , HLD admitted for acute hypoxic and hypercapnic respiratroy failure NEURO: alert and oriented. extubated CV continue plavix + lipitor+ aspirin Lasix 40 mg IV PULM nightly BIPAP BIPAP as needed during the day, can take breaks as tolerated continue solumedrol, duonebs and albuterol RENAL continue Lasix monitor BUN/Cr ARB and amlodipine held FENGI oral hydration monitor electrolytes dysphagia per swallow eval. give soft foods and thin liquids meds can be given crushed in applesauce ID: -continue ceftriaxone for UTI Visit type - Emergency Visit Emergency Visit: Yes ED Registration Date: 02/19/19 Care time: The patient presented to the Emergency Department on the above date and was hospitalized for further evaluation of their emergent condition. - New Patient This patient is new to me today: No - Critical Care Critical Care patient: No - Discharge Referral Referred to [facility] No ATTENDING PHYSICIAN STATEMENT I saw and evaluated the patient. I reviewed the resident's note and discussed the case with the resident. I agree with the resident's findings and plan as documented. SUBJECTIVE: OBJECTIVE: ASSESSMENT AND PLAN:
--- NOTE | 2019-02-28 14:42 | PN ---
Progress Note, Physician Chief Complaint: Feels better - Current Medication List Current Medications: Active Medications Acetaminophen (Tylenol -) 650 mg PO Q6H PRN PRN Reason: PAIN LEVEL 1-5 Last Admin: 02/27/19 22:19 Dose: 650 mg Albuterol Sulfate (Ventolin 0.083% Nebulizer Soln -) 1 amp NEB Q4H PRN PRN Reason: SHORT OF BREATH/WHEEZING Last Admin: 02/28/19 00:57 Dose: 1 amp Albuterol/Ipratropium (Duoneb -) 1 amp NEB RQID [facility] Last Admin: 02/28/19 11:12 Dose: 1 amp Aspirin (Asa -) 81 mg PO DAILY [facility] Last Admin: 02/28/19 10:14 Dose: 81 mg Atorvastatin Calcium (Lipitor -) 20 mg PO HS [facility] Last Admin: 02/27/19 22:22 Dose: 20 mg Calcium Carbonate/Cholecalciferol (Os-Jorge 500+D -) 2 tab PO DAILY [facility] Last Admin: 02/28/19 10:14 Dose: 2 tab Clopidogrel Bisulfate (Plavix -) 75 mg PO DAILY [facility] Last Admin: 02/28/19 10:14 Dose: 75 mg Docusate Sodium (Colace Liquid -) 300 mg PO BID [facility] Last Admin: 02/28/19 10:14 Dose: 300 mg Gabapentin (Neurontin Oral Liquid -) 300 mg PO BID [facility] Last Admin: 02/28/19 10:13 Dose: 300 mg Guaifenesin (Robitussin -) 10 ml PO Q6H PRN PRN Reason: COUGH Last Admin: 02/27/19 22:19 Dose: 10 ml Heparin Sodium (Porcine) (Heparin -) 5,000 unit SQ TID [facility] Last Admin: 02/28/19 14:04 Dose: 5,000 unit Ceftriaxone Sodium 1 gm/ (Dextrose) 50 mls @ 100 mls/hr IVPB DAILY [facility] Last Admin: 02/28/19 10:14 Dose: 100 mls/hr Insulin Aspart (Novolog Vial Sliding Scale -) 1 vial SQ ACHS [facility]; Protocol Last Admin: 02/28/19 11:08 Dose: 6 units Methylprednisolone Sodium Succinate (Solu-Medrol -) 40 mg IVPUSH Q8H-IV [facility] Last Admin: 02/28/19 10:15 Dose: 40 mg Morphine Sulfate (Msir -) 30 mg PO Q4H PRN PRN Reason: PAIN LEVEL 6-10 Nystatin (Nystop Powder -) 1 applic TP BID [facility] Last Admin: 02/28/19 10:15 Dose: 1 applic Ondansetron HCl (Zofran Injection) 8 mg IVPB Q8H PRN PRN Reason: NAUSEA Last Admin: 02/27/19 22:59 Dose: 8 mg Pantoprazole Sodium (Protonix -) 20 mg PO DAILY [facility] Last Admin: 02/28/19 10:14 Dose: 20 mg - Objective Vital Signs: Vital Signs Temperature 97.7 F 02/28/19 14:00 Pulse Rate 81 02/28/19 14:00 Respiratory Rate 15 02/28/19 14:00 Blood Pressure 132/64 02/28/19 14:00 O2 Sat by Pulse Oximetry (%) 97 02/28/19 12:07 Constitutional: Yes: No Distress Neck: Yes: Supple Cardiovascular: Yes: Regular Rate and Rhythm, S1, S2 Respiratory: Yes: CTA Bilaterally, Other (occasional scattered crackles) Gastrointestinal: Yes: Normal Bowel Sounds, Soft Neurological: Yes: Alert, Oriented. No: Loss of Sensation Labs: CBC, BMP 02/28/19 05:23 02/28/19 05:23 INR, PTT INR 1.10 (0.83-1.09) H 02/19/19 21:07 Problem List - Problems (1) Acute respiratory failure with hypoxia and hypercapnia Assessment/Plan: S/P extubation, respiratory status stable. Code(s): J96.01 - ACUTE RESPIRATORY FAILURE WITH HYPOXIA; J96.02 - ACUTE RESPIRATORY FAILURE WITH HYPERCAPNIA (2) Diabetes mellitus Assessment/Plan: Glucose values elevated but acceptable. Code(s): E11.9 - TYPE 2 DIABETES MELLITUS WITHOUT COMPLICATIONS Qualifiers: Diabetes mellitus type: type 2 Diabetes mellitus detention insulin use: with 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 helper termite use Diabetes mellitus complication status: without complication Qualified Code(s): E11.9 - Type 2 diabetes mellitus without complications; Z79.4 - senior care (current) use of insulin (3) HTN (hypertension) Assessment/Plan: Adequate control. Code(s): I10 - ESSENTIAL (PRIMARY) HYPERTENSION Qualifiers: Hypertension type: essential hypertension
--- NOTE | 2019-02-28 15:59 | PN ---
Progress Note, Physician History of Present Illness: Pt seen and examined at bedside. She is awake and alert. She does have shortness of breath. - Current Medication List Current Medications: Active Medications Acetaminophen (Tylenol -) 650 mg PO Q6H PRN PRN Reason: PAIN LEVEL 1-5 Last Admin: 02/27/19 22:19 Dose: 650 mg Albuterol Sulfate (Ventolin 0.083% Nebulizer Soln -) 1 amp NEB Q4H PRN PRN Reason: SHORT OF BREATH/WHEEZING Last Admin: 02/28/19 00:57 Dose: 1 amp Albuterol/Ipratropium (Duoneb -) 1 amp NEB RQID [facility] Last Admin: 02/28/19 11:12 Dose: 1 amp Aspirin (Asa -) 81 mg PO DAILY [facility] Last Admin: 02/28/19 10:14 Dose: 81 mg Atorvastatin Calcium (Lipitor -) 20 mg PO HS [facility] Last Admin: 02/27/19 22:22 Dose: 20 mg Calcium Carbonate/Cholecalciferol (Os-Jorge 500+D -) 2 tab PO DAILY [facility] Last Admin: 02/28/19 10:14 Dose: 2 tab Clopidogrel Bisulfate (Plavix -) 75 mg PO DAILY [facility] Last Admin: 02/28/19 10:14 Dose: 75 mg Docusate Sodium (Colace Liquid -) 300 mg PO BID [facility] Last Admin: 02/28/19 10:14 Dose: 300 mg Gabapentin (Neurontin Oral Liquid -) 300 mg PO BID [facility] Last Admin: 02/28/19 10:13 Dose: 300 mg Guaifenesin (Robitussin -) 10 ml PO Q6H PRN PRN Reason: COUGH Last Admin: 02/27/19 22:19 Dose: 10 ml Heparin Sodium (Porcine) (Heparin -) 5,000 unit SQ TID [facility] Last Admin: 02/28/19 14:04 Dose: 5,000 unit Ceftriaxone Sodium 1 gm/ (Dextrose) 50 mls @ 100 mls/hr IVPB DAILY [facility] Last Admin: 02/28/19 10:14 Dose: 100 mls/hr Insulin Aspart (Novolog Vial Sliding Scale -) 1 vial SQ ACHS [facility]; Protocol Last Admin: 02/28/19 11:08 Dose: 6 units Methylprednisolone Sodium Succinate (Solu-Medrol -) 40 mg IVPUSH Q8H-IV [facility] Last Admin: 02/28/19 10:15 Dose: 40 mg Morphine Sulfate (Msir -) 30 mg PO Q4H PRN PRN Reason: PAIN LEVEL 6-10 Nystatin (Nystop Powder -) 1 applic TP BID [facility] Last Admin: 02/28/19 10:15 Dose: 1 applic Ondansetron HCl (Zofran Injection) 8 mg IVPB Q8H PRN PRN Reason: NAUSEA Last Admin: 02/27/19 22:59 Dose: 8 mg Pantoprazole Sodium (Protonix -) 20 mg PO DAILY [facility] Last Admin: 02/28/19 10:14 Dose: 20 mg - Objective Vital Signs: Vital Signs Temperature 97.7 F 02/28/19 14:00 Pulse Rate 81 02/28/19 14:00 Respiratory Rate 15 02/28/19 14:00 Blood Pressure 132/64 02/28/19 14:00 O2 Sat by Pulse Oximetry (%) 97 02/28/19 12:07 Constitutional: Yes: Calm Eyes: Yes: Conjunctiva Clear HENT: Yes: Atraumatic Neck: Yes: Supple Cardiovascular: Yes: S1, S2 Respiratory: Yes: On Venti-Mask Gastrointestinal: Yes: Soft Musculoskeletal: Yes: Muscle Weakness Edema: Yes Edema: LLE: 2+, RLE: 2+ Integumentary: Yes: Venous Stasis Changes Neurological: Yes: Oriented Psychiatric: Yes: Oriented Labs: CBC, BMP 02/28/19 05:23 02/28/19 05:23 INR, PTT INR 1.10 (0.83-1.09) H 02/19/19 21:07 - ....Imaging Chest X-ray: Report Reviewed Problem List - Problems (1) Hyperkalemia Code(s): E87.5 - HYPERKALEMIA (2) CHF (congestive heart failure) Code(s): I50.9 - HEART FAILURE, UNSPECIFIED Qualifiers: Heart failure type: unspecified Heart failure chronicity: unspecified Qualified Code(s): I50.9 - Heart failure, unspecified (3) Renal insufficiency Code(s): N28.9 - DISORDER OF KIDNEY AND URETER, UNSPECIFIED Assessment/Plan Current Medications Generic Name Dose Route Start Last Admin Trade Name Freq PRN Reason Stop Dose Admin Acetaminophen 650 mg 02/23/19 17:14 12/23/19 22:19 Tylenol - PO 650 mg Q6H PRN Administration PAIN LEVEL 1-5 Albuterol Sulfate 1 amp 02/23/19 17:14 02/28/19 00:57 Ventolin 0.083% Nebulizer Soln - NEB 1 amp Q4H PRN Administration SHORT OF BREATH/WHEEZING Albuterol/Ipratropium 1 amp 02/23/19 20:00 02/28/19 11:12 Duoneb - NEB 1 amp RQID [facility] Administration Aspirin 81 mg 02/24/19 10:00 02/28/19 10:14 Asa - PO 81 mg DAILY [facility] Administration Atorvastatin Calcium 20 mg 02/23/19 22:00 02/27/19 22:22 Lipitor - PO 20 mg HS [facility] Administration Calcium Carbonate/Cholecalciferol 2 tab 02/24/19 10:00 02/28/19 10:14 Os-Jorge 500+D - PO 2 tab DAILY [facility] Administration Clopidogrel Bisulfate 75 mg 02/24/19 10:00 02/28/19 10:14 Plavix - PO 75 mg DAILY [facility] Administration Docusate Sodium 300 mg 02/28/19 10:00 02/28/19 10:14 Colace Liquid - PO 300 mg BID [facility] Administration Gabapentin 300 mg 02/26/19 22:00 02/28/19 10:13 Neurontin Oral Liquid - PO 300 mg BID [facility] Administration Guaifenesin 10 ml 02/23/19 17:14 02/27/19 22:19 Robitussin - PO 10 ml Q6H PRN Administration COUGH Heparin Sodium (Porcine) 5,000 unit 02/23/19 22:00 02/28/19 14:04 Heparin - SQ 5,000 unit TID [facility] Administration Ceftriaxone Sodium 1 gm/ 50 mls @ 100 mls/hr 02/24/19 10:00 02/28/19 10:14 Dextrose IVPB 100 mls/hr DAILY [facility] Administration Insulin Aspart 1 vial 02/24/19 11:00 02/28/19 11:08 Novolog Vial Sliding Scale - SQ 6 units ACHS [facility] Administration Protocol Methylprednisolone Sodium Succinate 40 mg 02/27/19 18:00 02/28/19 10:15 Solu-Medrol - IVPUSH 40 mg Q8H-IV [facility] Administration Morphine Sulfate 30 mg 02/28/19 08:54 Msir - PO Q4H PRN PAIN LEVEL 6-10 Nystatin 1 applic 02/23/19 22:00 02/28/19 10:15 Nystop Powder - TP 1 applic BID [facility] Administration Ondansetron HCl 8 mg 02/23/19 17:14 02/27/19 22:59 Zofran Injection IVPB 8 mg Q8H PRN Administration NAUSEA Pantoprazole Sodium 20 mg 02/24/19 10:00 02/28/19 10:14 Protonix - PO 20 mg DAILY [facility] Administration Impression 1. hyperkalemia 2. edema 3. chf 4. cough 5. morbid obesity 6. dm 7. asthma 8. cad 9. acuter resp failure 10. SANGITA Plan - cont with lasix - monitor renal function - keep net negative - monitor sodium - arb and amlodipine on hold
[2019-02-28] MEDS: ATORVASTATIN CA 20 MG TABLET (FP) PO SCH (21:23)
[2019-02-28] MEDS ORDERED: PT OWN MED DRAWER 7, Y5N ONE (21:27)
[2019-02-28] MEDS: morphine SULFATE IMMEDIATE RELEASE 30 MG TAB PO PRN (22:03)
[2019-03-01] MEDS: methylPREDNISolone NA SUCC 40 MG/1 ML VIAL IVPUSH SCH ×3 (01:34→17:31)
[2019-03-01] MEDS: morphine SULFATE IMMEDIATE RELEASE 30 MG TAB PO PRN ×4 (01:40→22:56)
[2019-03-01] MEDS: HEPARIN NA (PORCINE) 5,000 UNITS/ML 1ML VIAL SQ SCH ×3 (06:37→21:41)
[2019-03-01] MEDS: INSULIN SLIDING SCALE (NOVOLOG) 1 VIAL SQ SCH ×4 (06:38→21:46)
[2019-03-01 07:23] LABS: ALBUMIN 2.4 g/dl (3.4-5.0); BILIRUBIN,TOTAL 0.5 mg/dL (0.2-1); BLOOD UREA NITROGEN 66.7 mg/dL (7-18); CALCIUM 8.1 mg/dL (8.5-10.1); CREATININE 1.7 mg/dL (0.55-1.3); MAGNESIUM 2.4 mg/dL (1.8-2.4); PHOSPHOROUS 3.8 mg/dL (2.5-4.9)
[2019-03-01 07:27] LABS: BASO % 0.6 % (0-2.0); HEMATOCRIT 33.7 % (32.4-45.2); HEMOGLOBIN 10.9 GM/dL (10.7-15.3); LYMPH % 2.5 % (8-40); MCH 28.7 pg (25.7-33.7); MCHC 32.3 g/dl (32.0-36.0); MEAN CELL VOLUME 88.9 fl (80-96); NEUT % 92.9 % (42.8-82.8); PLATELET COUNT 166 K/MM3 (134-434); RBC 3.79 M/mm3 (3.60-5.2)
[2019-03-01] MEDS: ALBUTEROL SO4 2.5/IPRATROPIUM 0.5 INH SOL 3 ML VIAL.NEB. NEB SCH ×4 (08:25→20:54)
[2019-03-01] MEDS ORDERED: DEXTROSE 5%-WATER - 50 ML IVPB ONE (09:59)
[2019-03-01] MEDS ORDERED: cefTRIAXone SODIUM 1 GM VIAL ONE (09:59)
[2019-03-01] MEDS ORDERED: PT OWN MED DRAWER 7, Y5N ONE (09:59)
--- NOTE | 2019-03-01 10:03 | PN ---
Teaching Attending Note Name of Resident: Donavon Guerrier ATTENDING PHYSICIAN STATEMENT I saw and evaluated the patient. I reviewed the resident's note and discussed the case with the resident. I agree with the resident's findings and plan as documented. SUBJECTIVE: Pt seen and examined in the ICU. Reports some hemoptysis today. Breathing improving. Tolerating PO. OBJECTIVE: Vital Signs Period Temp Pulse Resp BP Sys/Gottlieb Pulse Ox Last 24 Hr 97.6 F-98.0 F 55-81 13-22 132-175/61-103 97-100 Intake & Output 02/26/19 02/27/19 02/28/19 03/01/19 23:59 23:59 23:59 23:59 Intake Total 279.7 1395 1270 135 Output Total 1725 1100 1075 Balance -1445.3 295 195 135 Weight 147.009 kg 146.284 kg 146.556 kg 146.919 kg Gen: NAD at rest Heart: RRR Lung: decreased breath sounds at the bases Abd: soft, nontender Ext: + edema CBC, BMP 03/01/19 05:53 03/01/19 05:53 Active Medications Acetaminophen (Tylenol -) 650 mg PO Q6H PRN PRN Reason: PAIN LEVEL 1-5 Last Admin: 02/27/19 22:19 Dose: 650 mg Albuterol Sulfate (Ventolin 0.083% Nebulizer Soln -) 1 amp NEB Q4H PRN PRN Reason: SHORT OF BREATH/WHEEZING Last Admin: 02/28/19 00:57 Dose: 1 amp Albuterol/Ipratropium (Duoneb -) 1 amp NEB RQID [facility] Last Admin: 02/28/19 20:35 Dose: 1 amp Aspirin (Asa -) 81 mg PO DAILY [facility] Last Admin: 02/28/19 10:14 Dose: 81 mg Atorvastatin Calcium (Lipitor -) 20 mg PO HS [facility] Last Admin: 02/28/19 21:23 Dose: 20 mg Calcium Carbonate/Cholecalciferol (Os-Jorge 500+D -) 2 tab PO DAILY [facility] Last Admin: 02/28/19 10:14 Dose: 2 tab Clopidogrel Bisulfate (Plavix -) 75 mg PO DAILY [facility] Last Admin: 02/28/19 10:14 Dose: 75 mg Docusate Sodium (Colace Liquid -) 300 mg PO BID [facility] Last Admin: 02/28/19 21:24 Dose: 300 mg Gabapentin (Neurontin Oral Liquid -) 300 mg PO BID [facility] Last Admin: 02/28/19 21:38 Dose: 300 mg Guaifenesin (Robitussin -) 10 ml PO Q6H PRN PRN Reason: COUGH Last Admin: 02/27/19 22:19 Dose: 10 ml Heparin Sodium (Porcine) (Heparin -) 5,000 unit SQ TID [facility] Last Admin: 03/01/19 06:37 Dose: 5,000 unit Ceftriaxone Sodium 1 gm/ (Dextrose) 50 mls @ 100 mls/hr IVPB DAILY [facility] Last Admin: 02/28/19 10:14 Dose: 100 mls/hr Insulin Aspart (Novolog Vial Sliding Scale -) 1 vial SQ ACHS [facility]; Protocol Last Admin: 03/01/19 06:38 Dose: 4 units Methylprednisolone Sodium Succinate (Solu-Medrol -) 40 mg IVPUSH Q8H-IV [facility] Last Admin: 03/01/19 01:34 Dose: 40 mg Morphine Sulfate (Msir -) 30 mg PO Q4H PRN PRN Reason: PAIN LEVEL 6-10 Last Admin: 03/01/19 08:34 Dose: 30 mg Nystatin (Nystop Powder -) 1 applic TP BID [facility] Last Admin: 02/28/19 21:25 Dose: 1 applic Ondansetron HCl (Zofran Injection) 8 mg IVPB Q8H PRN PRN Reason: NAUSEA Last Admin: 02/27/19 22:59 Dose: 8 mg Pantoprazole Sodium (Protonix -) 20 mg PO DAILY [facility] Last Admin: 02/28/19 10:14 Dose: 20 mg ASSESSMENT AND PLAN: Acute Hypoxic and Hypercapneic Respiratory Failure improving Acute COPD Exacerbation Acute on Chronic Diastolic Heart Failure UTI r/o Pneumonia CAD DM Morbid Obesity Likely Obstructive Sleep Apnea - continue antibiotics - continue lasix - monitor urine output, creatinine - daily weights - taper medrol - inhaled bronchodilators - O2 to keep SpO2 >90% - PO as tolerated - DVT/GI prophylaxis - can monitor on telemetry Problem List - Problems (1) COPD exacerbation Code(s): J44.1 - CHRONIC OBSTRUCTIVE PULMONARY DISEASE W (ACUTE) EXACERBATION
[2019-03-01] MEDS: ASPIRIN 81 MG CHEWABLE TABLETS PO SCH (10:07)
[2019-03-01] MEDS: CALCIUM 500MG/VIT-D 200 UNITS COMBO TABLET (FP) PO SCH (10:07)
[2019-03-01] MEDS: CLOPIDOGREL BISULFATE 75 MG TABLET (FP) PO SCH (10:08)
[2019-03-01] MEDS: PANTOPRAZOLE 20 MG TABLET (FP) PO SCH (10:09)
[2019-03-01] MEDS: CEFTRIAXONE 1 GM in DEXTROSE 5%-WATER - 50 ML IVPB SCH (10:10)
[2019-03-01] MEDS: DOCUSATE NA 100 MG/10 ML UNIT-DOSE CUPS PO SCH ×2 (10:13→21:40)
[2019-03-01] MEDS ORDERED: FUROSEMIDE 40 MG/4 ML INJECTABLE VIAL IVPUSH ONE ×2 (10:18→18:00)
[2019-03-01 10:26] LABS: ANISOCYTOSIS 0; MACROCYTOSIS 0; PLATELET ESTIMATE NORMAL
[2019-03-01] MEDS: NYSTATIN POWDER 100,000 UNITS/GM - 15 GM TOPICAL POWDER TP SCH ×2 (10:36→21:43)
[2019-03-01] MEDS: GABAPENTIN 300 MG CAPSULE (FP) PO SCH ×2 (10:48→21:42)
--- NOTE | 2019-03-01 10:59 | PN ---
Physical Exam: SUBJECTIVE: Patient seen and examined much improved this a.m feeding herself complained of one episode of hemoptysis this a.m otherwise feeling better. OBJECTIVE: Vital Signs Period Temp Pulse Resp BP Sys/Gottlieb Pulse Ox Last 24 Hr 97.6 F-98.0 F 55-81 13-22 132-175/61-103 97-100 GEN: NAD HEENT: NC/AT, EOMI, PERRLA. No facial asymmetry. Moist mucous membranes. Normal voice. CV: S1/S2, RRR, no m/r/g LUNG: faint rhonchi on lung exam. GI: soft, ndnt, +BS, no guarding, no rebound. EXTREMITIES: 2+ distal pulses. pedal pitting edema. chronic stasis dermatitis changes SKIN: warm, dry, normal turgor PSYCH: normal mood and affect NEURO: Moving all extremities Laboratory Results - last 24 hr 02/28/19 02/28/19 02/28/19 11:06 17:12 21:15 WBC RBC Hgb Hct MCV MCH MCHC RDW Plt Count MPV Absolute Neuts (auto) Neutrophils % Neutrophils % (Manual) Band Neutrophils % Lymphocytes % Lymphocytes % (Manual) Monocytes % Monocytes % (Manual) Eosinophils % Eosinophils % (Manual) Basophils % Basophils % (Manual) Myelocytes % (Man) Promyelocytes % (Man) Blast Cells % (Manual) Nucleated RBC % Metamyelocytes Hypochromia Platelet Estimate Platelet Comment Polychromasia Poikilocytosis Basophilic Stippling Anisocytosis Microcytosis Macrocytosis Sodium Potassium Chloride Carbon Dioxide Anion Gap BUN Creatinine Est GFR (CKD-EPI)AfAm Est GFR (CKD-EPI)NonAf POC Glucometer 300 280 306 Random Glucose Calcium Phosphorus Magnesium Total Bilirubin AST ALT Alkaline Phosphatase Total Protein Albumin 03/01/19 03/01/19 03/01/19 05:53 05:53 05:54 WBC 14.0 H RBC 3.79 Hgb 10.9 Hct 33.7 MCV 88.9 MCH 28.7 MCHC 32.3 RDW 17.0 H Plt Count 166 MPV 9.0 Absolute Neuts (auto) 13.0 H Neutrophils % 92.9 H Neutrophils % (Manual) 90.0 H Band Neutrophils % 0.0 Lymphocytes % 2.5 L D Lymphocytes % (Manual) 2.0 L D Monocytes % 4.0 Monocytes % (Manual) 2 L Eosinophils % 0.0 D Eosinophils % (Manual) 0.0 Basophils % 0.6 D Basophils % (Manual) 0.0 Myelocytes % (Man) 3 H D Promyelocytes % (Man) 0 D Blast Cells % (Manual) 0 Nucleated RBC % 0 Metamyelocytes 3 H D Hypochromia 0 Platelet Estimate Normal Platelet Comment Present Polychromasia 0 Poikilocytosis 0 Basophilic Stippling 1+ Anisocytosis 0 Microcytosis 0 Macrocytosis 0 Sodium 135 L Potassium 5.0 Chloride 97 L Carbon Dioxide 31 Anion Gap 7 L BUN 66.7 H Creatinine 1.7 H Est GFR (CKD-EPI)AfAm 34.32 Est GFR (CKD-EPI)NonAf 29.61 POC Glucometer 232 Random Glucose 230 H Calcium 8.1 L Phosphorus 3.8 Magnesium 2.4 Total Bilirubin 0.5 AST 8 L ALT 17 Alkaline Phosphatase 68 Total Protein 5.0 L Albumin 2.4 L Active Medications Generic Name Dose Route Start Last Admin Trade Name Freq PRN Reason Stop Dose Admin Acetaminophen 650 mg 02/23/19 17:14 02/27/19 22:19 Tylenol - PO 650 mg Q6H PRN Administration PAIN LEVEL 1-5 Albuterol Sulfate 1 amp 02/23/19 17:14 02/28/19 00:57 Ventolin 0.083% Nebulizer Soln - NEB 1 amp Q4H PRN Administration SHORT OF BREATH/WHEEZING Albuterol/Ipratropium 1 amp 02/23/19 20:00 02/28/19 20:35 Duoneb - NEB 1 amp RQID [facility] Administration Aspirin 81 mg 02/24/19 10:00 03/01/19 10:07 Asa - PO 81 mg DAILY [facility] Administration Atorvastatin Calcium 20 mg 02/23/19 22:00 02/28/19 21:23 Lipitor - PO 20 mg HS [facility] Administration Calcium Carbonate/Cholecalciferol 2 tab 02/24/19 10:00 03/01/19 10:07 Os-Jorge 500+D - PO 2 tab DAILY [facility] Administration Clopidogrel Bisulfate 75 mg 02/24/19 10:00 03/01/19 10:08 Plavix - PO 75 mg DAILY [facility] Administration Docusate Sodium 300 mg 02/28/19 10:00 03/01/19 10:13 Colace Liquid - PO Not Given BID [facility] Gabapentin 300 mg 03/01/19 10:45 03/01/19 10:48 Neurontin - PO 300 mg BID [facility] Administration Guaifenesin 10 ml 02/23/19 17:14 02/27/19 22:19 Robitussin - PO 10 ml Q6H PRN Administration COUGH Heparin Sodium (Porcine) 5,000 unit 02/23/19 22:00 03/01/19 06:37 Heparin - SQ 5,000 unit TID [facility] Administration Ceftriaxone Sodium 1 gm/ 50 mls @ 100 mls/hr 02/24/19 10:00 03/01/19 10:10 Dextrose IVPB 100 mls/hr DAILY [facility] Administration Insulin Aspart 1 vial 02/24/19 11:00 03/01/19 06:38 Novolog Vial Sliding Scale - SQ 4 units ACHS [facility] Administration Protocol Methylprednisolone Sodium Succinate 40 mg 02/27/19 18:00 03/01/19 10:10 Solu-Medrol - IVPUSH 40 mg Q8H-IV [facility] Administration Morphine Sulfate 30 mg 02/28/19 08:54 03/01/19 08:34 Msir - PO 30 mg Q4H PRN Administration PAIN LEVEL 6-10 Nystatin 1 applic 02/23/19 22:00 03/01/19 10:36 Nystop Powder - TP 1 applic BID [facility] Administration Ondansetron HCl 8 mg 02/23/19 17:14 02/27/19 22:59 Zofran Injection IVPB 8 mg Q8H PRN Administration NAUSEA Pantoprazole Sodium 20 mg 02/24/19 10:00 03/01/19 10:09 Protonix - PO 20 mg DAILY [facility] Administration ASSESSMENT/PLAN: 73 y/o F hx of asthma, morbid obesity, CAD , HTN , HLD admitted for acute hypoxic and hypercapnic respiratroy failure NEURO: alert and oriented CV: amlodipine and ARB held Continue aspirin, plavix and lipitor lasix today (40mg) IV PULM Albuterol and duonebs keep o2 sat above 90 pt can be transferred to telemetry for continued monitoring CXR shows improvement in pleural changes complained of one episode of hemoptysis this a.m monitor. RENAL cont with lasix - monitor renal function - keep net negative - monitor sodium - arb and amlodipine on hold FENGI oral hydration monitor electrolytes tolerating soft foods and thin liquids PO protonix ENDO sliding scale insulin for diabetes ID ceftriaxone for UTI DVT PPX:heparin SQ LINES/TUBES/DRAINS: Visit type - Emergency Visit Emergency Visit: Yes ED Registration Date: 02/19/19 Care time: The patient presented to the Emergency Department on the above date and was hospitalized for further evaluation of their emergent condition. - New Patient This patient is new to me today: No - Critical Care Critical Care patient: No - Discharge Referral Referred to [facility] Med P.C.: No ATTENDING PHYSICIAN STATEMENT I saw and evaluated the patient. I reviewed the resident's note and discussed the case with the resident. I agree with the resident's findings and plan as documented. SUBJECTIVE: OBJECTIVE: ASSESSMENT AND PLAN:
--- NOTE | 2019-03-01 13:45 | PN ---
Progress Note, Physician Chief Complaint: Feels better, out of the ICU. - Current Medication List Current Medications: Active Medications Acetaminophen (Tylenol -) 650 mg PO Q6H PRN PRN Reason: PAIN LEVEL 1-5 Last Admin: 02/27/19 22:19 Dose: 650 mg Albuterol Sulfate (Ventolin 0.083% Nebulizer Soln -) 1 amp NEB Q4H PRN PRN Reason: SHORT OF BREATH/WHEEZING Last Admin: 02/28/19 00:57 Dose: 1 amp Albuterol/Ipratropium (Duoneb -) 1 amp NEB RQID [facility] Last Admin: 03/01/19 12:15 Dose: Not Given Aspirin (Asa -) 81 mg PO DAILY [facility] Last Admin: 03/01/19 10:07 Dose: 81 mg Atorvastatin Calcium (Lipitor -) 20 mg PO HS [facility] Last Admin: 02/28/19 21:23 Dose: 20 mg Calcium Carbonate/Cholecalciferol (Os-Jorge 500+D -) 2 tab PO DAILY [facility] Last Admin: 03/01/19 10:07 Dose: 2 tab Clopidogrel Bisulfate (Plavix -) 75 mg PO DAILY [facility] Last Admin: 03/01/19 10:08 Dose: 75 mg Docusate Sodium (Colace Liquid -) 300 mg PO BID [facility] Last Admin: 03/01/19 10:13 Dose: Not Given Gabapentin (Neurontin -) 300 mg PO BID [facility] Last Admin: 03/01/19 10:48 Dose: 300 mg Guaifenesin (Robitussin -) 10 ml PO Q6H PRN PRN Reason: COUGH Last Admin: 02/27/19 22:19 Dose: 10 ml Heparin Sodium (Porcine) (Heparin -) 5,000 unit SQ TID [facility] Last Admin: 03/01/19 06:37 Dose: 5,000 unit Ceftriaxone Sodium 1 gm/ (Dextrose) 50 mls @ 100 mls/hr IVPB DAILY [facility] Last Admin: 03/01/19 10:10 Dose: 100 mls/hr Insulin Aspart (Novolog Vial Sliding Scale -) 1 vial SQ ACHS [facility]; Protocol Last Admin: 03/01/19 11:32 Dose: 6 units Methylprednisolone Sodium Succinate (Solu-Medrol -) 40 mg IVPUSH Q8H-IV [facility] Last Admin: 03/01/19 10:10 Dose: 40 mg Morphine Sulfate (Msir -) 30 mg PO Q4H PRN PRN Reason: PAIN LEVEL 6-10 Last Admin: 03/01/19 08:34 Dose: 30 mg Nystatin (Nystop Powder -) 1 applic TP BID [facility] Last Admin: 03/01/19 10:36 Dose: 1 applic Ondansetron HCl (Zofran Injection) 8 mg IVPB Q8H PRN PRN Reason: NAUSEA Last Admin: 02/27/19 22:59 Dose: 8 mg Pantoprazole Sodium (Protonix -) 20 mg PO DAILY [facility] Last Admin: 03/01/19 10:09 Dose: 20 mg - Objective Vital Signs: Vital Signs Temperature 98.9 F 03/01/19 12:00 Pulse Rate 65 03/01/19 12:00 Respiratory Rate 16 03/01/19 12:00 Blood Pressure 158/113 H 03/01/19 12:00 O2 Sat by Pulse Oximetry (%) 97 03/01/19 08:51 Constitutional: Yes: No Distress, [place] Neck: Yes: Supple Cardiovascular: Yes: Regular Rate and Rhythm, S1, S2 Respiratory: Yes: Regular, CTA Bilaterally Gastrointestinal: Yes: Normal Bowel Sounds, Soft Neurological: Yes: Alert, Oriented Labs: CBC, BMP 03/01/19 05:53 03/01/19 05:53 INR, PTT INR 1.10 (0.83-1.09) H 02/19/19 21:07 Problem List - Problems (1) Acute respiratory failure with hypoxia and hypercapnia Assessment/Plan: Improving Code(s): J96.01 - ACUTE RESPIRATORY FAILURE WITH HYPOXIA; J96.02 - ACUTE RESPIRATORY FAILURE WITH HYPERCAPNIA (2) Diabetes mellitus Assessment/Plan: Glucose values elevated but acceptable. Code(s): E11.9 - TYPE 2 DIABETES MELLITUS WITHOUT COMPLICATIONS Qualifiers: Diabetes mellitus type: type 2 Diabetes mellitus long chain beamer insulin use: with long chain beamer use Diabetes mellitus complication status: without complication Qualified Code(s): E11.9 - Type 2 diabetes mellitus without complications; Z79.4 - 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 helper (current) use of insulin (3) HTN (hypertension) Code(s): I10 - ESSENTIAL (PRIMARY) HYPERTENSION Qualifiers: Hypertension type: essential hypertension Qualified Code(s): I10 - Essential (primary) hypertension
--- NOTE | 2019-03-01 13:57 | PN ---
Progress Note, Physician History of Present Illness: Pt seen and examined at bedside. SHe is awake and alert. She feels that her breathing is improving. She is refusing to remove meade. - Current Medication List Current Medications: Active Medications Acetaminophen (Tylenol -) 650 mg PO Q6H PRN PRN Reason: PAIN LEVEL 1-5 Last Admin: 02/27/19 22:19 Dose: 650 mg Albuterol Sulfate (Ventolin 0.083% Nebulizer Soln -) 1 amp NEB Q4H PRN PRN Reason: SHORT OF BREATH/WHEEZING Last Admin: 02/28/19 00:57 Dose: 1 amp Albuterol/Ipratropium (Duoneb -) 1 amp NEB RQID [facility] Last Admin: 03/01/19 12:15 Dose: Not Given Aspirin (Asa -) 81 mg PO DAILY [facility] Last Admin: 03/01/19 10:07 Dose: 81 mg Atorvastatin Calcium (Lipitor -) 20 mg PO HS [facility] Last Admin: 02/28/19 21:23 Dose: 20 mg Calcium Carbonate/Cholecalciferol (Os-Jorge 500+D -) 2 tab PO DAILY [facility] Last Admin: 03/01/19 10:07 Dose: 2 tab Clopidogrel Bisulfate (Plavix -) 75 mg PO DAILY [facility] Last Admin: 03/01/19 10:08 Dose: 75 mg Docusate Sodium (Colace Liquid -) 300 mg PO BID [facility] Last Admin: 03/01/19 10:13 Dose: Not Given Gabapentin (Neurontin -) 300 mg PO BID [facility] Last Admin: 03/01/19 10:48 Dose: 300 mg Guaifenesin (Robitussin -) 10 ml PO Q6H PRN PRN Reason: COUGH Last Admin: 02/27/19 22:19 Dose: 10 ml Heparin Sodium (Porcine) (Heparin -) 5,000 unit SQ TID [facility] Last Admin: 03/01/19 06:37 Dose: 5,000 unit Ceftriaxone Sodium 1 gm/ (Dextrose) 50 mls @ 100 mls/hr IVPB DAILY [facility] Last Admin: 03/01/19 10:10 Dose: 100 mls/hr Insulin Aspart (Novolog Vial Sliding Scale -) 1 vial SQ ACHS [facility]; Protocol Last Admin: 03/01/19 11:32 Dose: 6 units Methylprednisolone Sodium Succinate (Solu-Medrol -) 40 mg IVPUSH Q8H-IV [facility] Last Admin: 03/01/19 10:10 Dose: 40 mg Morphine Sulfate (Msir -) 30 mg PO Q4H PRN PRN Reason: PAIN LEVEL 6-10 Last Admin: 03/01/19 08:34 Dose: 30 mg Nystatin (Nystop Powder -) 1 applic TP BID [facility] Last Admin: 03/01/19 10:36 Dose: 1 applic Ondansetron HCl (Zofran Injection) 8 mg IVPB Q8H PRN PRN Reason: NAUSEA Last Admin: 02/27/19 22:59 Dose: 8 mg Pantoprazole Sodium (Protonix -) 20 mg PO DAILY [facility] Last Admin: 03/01/19 10:09 Dose: 20 mg - Objective Vital Signs: Vital Signs Temperature 98.9 F 03/01/19 12:00 Pulse Rate 65 03/01/19 12:00 Respiratory Rate 16 03/01/19 12:00 Blood Pressure 158/113 H 03/01/19 12:00 O2 Sat by Pulse Oximetry (%) 97 03/01/19 08:51 Constitutional: Yes: Calm Eyes: Yes: Conjunctiva Clear HENT: Yes: Atraumatic Neck: Yes: Supple Cardiovascular: Yes: S1, S2 Respiratory: Yes: CTA Bilaterally, On Nasal O2 Gastrointestinal: Yes: Soft Genitourinary: Yes: Meade Present Musculoskeletal: Yes: WNL Edema: Yes Edema: LLE: 2+, RLE: 2+ Neurological: Yes: Oriented Psychiatric: Yes: Oriented Labs: CBC, BMP 03/01/19 05:53 03/01/19 05:53 INR, PTT INR 1.10 (0.83-1.09) H 02/19/19 21:07 Problem List - Problems (1) Hyperkalemia Code(s): E87.5 - HYPERKALEMIA (2) CHF (congestive heart failure) Code(s): I50.9 - HEART FAILURE, UNSPECIFIED Qualifiers: Heart failure type: unspecified Heart failure chronicity: unspecified Qualified Code(s): I50.9 - Heart failure, unspecified (3) Renal insufficiency Code(s): N28.9 - DISORDER OF KIDNEY AND URETER, UNSPECIFIED Assessment/Plan Current Medications Generic Name Dose Route Start Last Admin Trade Name Freq PRN Reason Stop Dose Admin Acetaminophen 650 mg 02/23/19 17:14 02/27/19 22:19 Tylenol - PO 650 mg Q6H PRN Administration PAIN LEVEL 1-5 Albuterol Sulfate 1 amp 02/23/19 17:14 02/28/19 00:57 Ventolin 0.083% Nebulizer Soln - NEB 1 amp Q4H PRN Administration SHORT OF BREATH/WHEEZING Albuterol/Ipratropium 1 amp 02/23/19 20:00 03/01/19 12:15 Duoneb - NEB Not Given RQID [facility] Aspirin 81 mg 02/24/19 10:00 03/01/19 10:07 Asa - PO 81 mg DAILY [facility] Administration Atorvastatin Calcium 20 mg 02/23/19 22:00 02/28/19 21:23 Lipitor - PO 20 mg HS [facility] Administration Calcium Carbonate/Cholecalciferol 2 tab 02/24/19 10:00 03/01/19 10:07 Os-Jorge 500+D - PO 2 tab DAILY [facility] Administration Clopidogrel Bisulfate 75 mg 02/24/19 10:00 03/01/19 10:08 Plavix - PO 75 mg DAILY [facility] Administration Docusate Sodium 300 mg 02/28/19 10:00 03/01/19 10:13 Colace Liquid - PO Not Given BID [facility] Gabapentin 300 mg 03/01/19 10:45 03/01/19 10:48 Neurontin - PO 300 mg BID [facility] Administration Guaifenesin 10 ml 02/23/19 17:14 02/27/19 22:19 Robitussin - PO 10 ml Q6H PRN Administration COUGH Heparin Sodium (Porcine) 5,000 unit 02/23/19 22:00 03/01/19 13:52 Heparin - SQ 5,000 unit TID [facility] Administration Ceftriaxone Sodium 1 gm/ 50 mls @ 100 mls/hr 02/24/19 10:00 03/01/19 10:10 Dextrose IVPB 100 mls/hr DAILY [facility] Administration Insulin Aspart 1 vial 02/24/19 11:00 03/01/19 11:32 Novolog Vial Sliding Scale - SQ 6 units ACHS [facility] Administration Protocol Methylprednisolone Sodium Succinate 40 mg 02/27/19 18:00 03/01/19 10:10 Solu-Medrol - IVPUSH 40 mg Q8H-IV [facility] Administration Morphine Sulfate 30 mg 02/28/19 08:54 03/01/19 08:34 Msir - PO 30 mg Q4H PRN Administration PAIN LEVEL 6-10 Nystatin 1 applic 02/23/19 22:00 03/01/19 10:36 Nystop Powder - TP 1 applic BID [facility] Administration Ondansetron HCl 8 mg 02/23/19 17:14 02/27/19 22:59 Zofran Injection IVPB 8 mg Q8H PRN Administration NAUSEA Pantoprazole Sodium 20 mg 02/24/19 10:00 03/01/19 10:09 Protonix - PO 20 mg DAILY [facility] Administration Impression 1. hyperkalemia 2. edema 3. chf 4. cough 5. morbid obesity 6. dm 7. asthma 8. cad 9. acuter resp failure 10. SANGITA Plan - cont lasix, will give additional dose - d/c halina in am, she is refusing to take it out - monitor volume status - monitor sodium - arb and amlodipine on hold
[2019-03-01] MEDS: ATORVASTATIN CA 20 MG TABLET (FP) PO SCH (21:42)
[2019-03-02] MEDS: methylPREDNISolone NA SUCC 40 MG/1 ML VIAL IVPUSH SCH ×3 (02:00→22:16)
[2019-03-02] MEDS: morphine SULFATE IMMEDIATE RELEASE 30 MG TAB PO PRN ×2 (06:16→22:19)
[2019-03-02] MEDS: INSULIN SLIDING SCALE (NOVOLOG) 1 VIAL SQ SCH ×4 (06:16→22:17)
[2019-03-02] MEDS: HEPARIN NA (PORCINE) 5,000 UNITS/ML 1ML VIAL SQ SCH ×3 (06:16→22:16)
[2019-03-02 07:03] LABS: ALBUMIN 2.3 g/dl (3.4-5.0); BILIRUBIN,TOTAL 0.4 mg/dL (0.2-1); BLOOD UREA NITROGEN 63.4 mg/dL (7-18); CALCIUM 8.3 mg/dL (8.5-10.1); CREATININE 1.5 mg/dL (0.55-1.3); TOT PROT 4.7 g/dl (6.4-8.2)
[2019-03-02] MEDS ORDERED: guaiFENesin 200 MG/10 ML 10 ML UNIT-DOSE CUPS PO PRN (07:56)
[2019-03-02] MEDS ORDERED: ACETAMINOPHEN 325 MG TABLET (FP) PO PRN (07:56)
[2019-03-02] MEDS ORDERED: ALBUTEROL SO4 0.083% IH SOL 2.5 MG/3 ML VIAL.NEB. NEB PRN (07:56)
[2019-03-02] MEDS ORDERED: ONDANSETRON 4 MG/2 ML VIAL IVPB PRN (07:56)
--- NOTE | 2019-03-02 08:47 | PN ---
Progress Note, Physician Chief Complaint: s/p respiratory failure - Current Medication List Current Medications: Active Medications Acetaminophen (Tylenol -) 650 mg PO Q6H PRN PRN Reason: PAIN LEVEL 1-5 Albuterol Sulfate (Ventolin 0.083% Nebulizer Soln -) 1 amp NEB Q4H PRN PRN Reason: SHORT OF BREATH/WHEEZING Albuterol/Ipratropium (Duoneb -) 1 amp NEB RQID [facility] Aspirin (Asa -) 81 mg PO DAILY [facility] Atorvastatin Calcium (Lipitor -) 20 mg PO HS [facility] Calcium Carbonate/Cholecalciferol (Os-Jorge 500+D -) 2 tab PO DAILY [facility] Clopidogrel Bisulfate (Plavix -) 75 mg PO DAILY [facility] Docusate Sodium (Colace Liquid -) 300 mg PO BID [facility] Gabapentin (Neurontin -) 300 mg PO BID [facility] Last Admin: 03/01/19 21:42 Dose: 300 mg Guaifenesin (Robitussin -) 10 ml PO Q6H PRN PRN Reason: COUGH Heparin Sodium (Porcine) (Heparin -) 5,000 unit SQ TID [facility] Ceftriaxone Sodium 1 gm/ (Dextrose) 50 mls @ 100 mls/hr IVPB DAILY [facility] Insulin Aspart (Novolog Vial Sliding Scale -) 1 vial SQ ACHS [facility]; Protocol Methylprednisolone Sodium Succinate (Solu-Medrol -) 40 mg IVPUSH Q12H [facility] Morphine Sulfate (Msir -) 30 mg PO Q4H PRN PRN Reason: PAIN LEVEL 6-10 Nystatin (Nystop Powder -) 1 applic TP BID [facility] Ondansetron HCl (Zofran Injection) 8 mg IVPB Q8H PRN PRN Reason: NAUSEA Pantoprazole Sodium (Protonix -) 20 mg PO DAILY [facility] - Objective Vital Signs: Vital Signs Temperature 97.7 F 03/02/19 06:00 Pulse Rate 57 L 03/02/19 06:00 Respiratory Rate 18 03/02/19 06:00 Blood Pressure 136/65 03/02/19 06:00 O2 Sat by Pulse Oximetry (%) 90 L 03/01/19 22:00 Constitutional: Yes: Calm, Obese Eyes: Yes: Conjunctiva Clear HENT: Yes: Normocephalic Neck: Yes: Trachea Midline Cardiovascular: Yes: Regular Rate and Rhythm Respiratory: Yes: CTA Bilaterally Gastrointestinal: Yes: Normal Bowel Sounds, Abdomen, Obese Musculoskeletal: Yes: Back Pain, Joint Stiffness, Other (atrophic right arm) Edema: LLE: 1+, RLE: 1+ Neurological: Yes: WNL Labs: CBC, BMP 03/01/19 05:53 03/02/19 05:20 INR, PTT INR 1.10 (0.83-1.09) H 02/19/19 21:07 - ....Imaging Chest X-ray: Report Reviewed Problem List - Problems (1) Acute respiratory failure Code(s): J96.00 - ACUTE RESPIRATORY FAILURE, UNSP W HYPOXIA OR HYPERCAPNIA Qualifiers: Respiratory failure complication: hypoxia and hypercapnia Qualified Code(s) : J96.01 - Acute respiratory failure with hypoxia; J96.02 - Acute respiratory failure with hypercapnia (2) Anxiety and depression Code(s): F41.9 - ANXIETY DISORDER, UNSPECIFIED; F32.9 - MAJOR DEPRESSIVE DISORDER, SINGLE EPISODE, UNSPECIFIED (3) CHF (congestive heart failure) Code(s): I50.9 - HEART FAILURE, UNSPECIFIED Qualifiers: Heart failure type: unspecified Heart failure chronicity: unspecified Qualified Code(s): I50.9 - Heart failure, unspecified (4) Diastolic CHF Code(s): I50.30 - UNSPECIFIED DIASTOLIC (CONGESTIVE) HEART FAILURE Qualifiers: Heart failure chronicity: acute on chronic Qualified Code(s): I50.33 - Acute on chronic diastolic (congestive) heart failure (5) Hx of heart artery stent Code(s): Z95.5 - PRESENCE OF CORONARY ANGIOPLASTY IMPLANT AND GRAFT (6) Renal insufficiency Code(s): N28.9 - DISORDER OF KIDNEY AND URETER, UNSPECIFIED (7) SANGITA (acute kidney injury) Code(s): N17.9 - ACUTE KIDNEY FAILURE, UNSPECIFIED (8) CAD (coronary artery disease) Code(s): I25.10 - ATHSCL HEART DISEASE OF [place] CORONARY ARTERY W/O ANG PCTRS Qualifiers: Coronary Disease-Associated Artery/Lesion type: [place] artery Associated angina: without angina (9) COPD exacerbation Code(s): J44.1 - CHRONIC OBSTRUCTIVE PULMONARY DISEASE W (ACUTE) EXACERBATION (10) HTN (hypertension) Code(s): I10 - ESSENTIAL (PRIMARY) HYPERTENSION Qualifiers: Hypertension type: essential hypertension Qualified Code(s): I10 - Essential (primary) hypertension (11) Hypothyroid Code(s): E03.9 - HYPOTHYROIDISM, UNSPECIFIED (12) Morbid obesity Code(s): E66.01 - MORBID (SEVERE) OBESITY DUE TO EXCESS CALORIES (13) Urinary tract infection Code(s): N39.0 - URINARY TRACT INFECTION, SITE NOT SPECIFIED Qualifiers: Urinary tract infection type: site unspecified Hematuria presence: without hematuria Qualified Code(s): N39.0 - Urinary tract infection, site not specified Assessment/Plan taper steroids should finish iv ceftriaxone today dc meade PT eval plan is str and pt awaiting pulm and renal input regarding dc
[2019-03-02] MEDS: ALBUTEROL SO4 2.5/IPRATROPIUM 0.5 INH SOL 3 ML VIAL.NEB. NEB SCH ×4 (09:11→20:49)
[2019-03-02] MEDS ORDERED: CEFTRIAXONE 1 GM in DEXTROSE 5%-WATER - 50 ML IVPB SCH (10:00)
[2019-03-02] MEDS ORDERED: methylPREDNISolone NA SUCC 40 MG/1 ML VIAL IVPUSH SCH (10:00)
--- NOTE | 2019-03-02 10:13 | PN ---
Progress Note (short form) - Note Progress Note: Awake and alert. Reports breathing is better. Still with some congested cough but improving. No hemoptysis. Intake & Output 02/27/19 02/28/19 03/01/19 03/02/19 23:59 23:59 23:59 23:59 Intake Total 1395 1270 395 280 Output Total 1100 1075 2600 500 Balance 295 195 -2205 -220 Weight 322 lb 8 oz 323 lb 1.6 oz 323 lb 14.4 oz 324 lb 14.4 oz Last Vital Signs Temp Pulse Resp BP Pulse Ox 97.7 F 57 L 18 136/65 90 L 03/02/19 06:00 03/02/19 06:00 03/02/19 06:00 03/02/19 06:00 03/01/19 22:00 Active Medications Acetaminophen (Tylenol -) 650 mg PO Q6H PRN PRN Reason: PAIN LEVEL 1-5 Albuterol Sulfate (Ventolin 0.083% Nebulizer Soln -) 1 amp NEB Q4H PRN PRN Reason: SHORT OF BREATH/WHEEZING Albuterol/Ipratropium (Duoneb -) 1 amp NEB RQID [facility] Last Admin: 03/02/19 09:11 Dose: 1 amp Aspirin (Asa -) 81 mg PO DAILY [facility] Atorvastatin Calcium (Lipitor -) 20 mg PO HS [facility] Calcium Carbonate/Cholecalciferol (Os-Ojrge 500+D -) 2 tab PO DAILY [facility] Clopidogrel Bisulfate (Plavix -) 75 mg PO DAILY [facility] Docusate Sodium (Colace Liquid -) 300 mg PO BID [facility] Gabapentin (Neurontin -) 300 mg PO BID [facility] Last Admin: 03/01/19 21:42 Dose: 300 mg Guaifenesin (Robitussin -) 10 ml PO Q6H PRN PRN Reason: COUGH Heparin Sodium (Porcine) (Heparin -) 5,000 unit SQ TID [facility] Ceftriaxone Sodium 1 gm/ (Dextrose) 50 mls @ 100 mls/hr IVPB DAILY [facility] Insulin Aspart (Novolog Vial Sliding Scale -) 1 vial SQ ACHS [facility]; Protocol Methylprednisolone Sodium Succinate (Solu-Medrol -) 40 mg IVPUSH BID [facility] Morphine Sulfate (Msir -) 30 mg PO Q4H PRN PRN Reason: PAIN LEVEL 6-10 Nystatin (Nystop Powder -) 1 applic TP BID [facility] Ondansetron HCl (Zofran Injection) 8 mg IVPB Q8H PRN PRN Reason: NAUSEA Pantoprazole Sodium (Protonix -) 20 mg PO DAILY [facility] Gen: NAD at rest Heart: RRR Lung: scattered rhonchi, decreased breath sounds at the bases, no wheeze Abd: soft, nontender Ext: + edema Laboratory Results - last 24 hr 03/01/19 03/01/19 03/01/19 05:53 10:55 16:49 Neutrophils % (Manual) 90.0 H Band Neutrophils % 0.0 Lymphocytes % (Manual) 2.0 L D Monocytes % (Manual) 2 L Eosinophils % (Manual) 0.0 Basophils % (Manual) 0.0 Myelocytes % (Man) 3 H D Promyelocytes % (Man) 0 D Blast Cells % (Manual) 0 Nucleated RBC % 0 Metamyelocytes 3 H D Hypochromia 0 Platelet Estimate Normal Platelet Comment Present Polychromasia 0 Poikilocytosis 0 Basophilic Stippling 1+ Anisocytosis 0 Microcytosis 0 Macrocytosis 0 Sodium Potassium Chloride Carbon Dioxide Anion Gap BUN Creatinine Est GFR (CKD-EPI)AfAm Est GFR (CKD-EPI)NonAf POC Glucometer 268 296 Random Glucose Calcium Total Bilirubin AST ALT Alkaline Phosphatase Total Protein Albumin 03/01/19 03/02/19 03/02/19 21:38 05:20 05:51 Neutrophils % (Manual) Band Neutrophils % Lymphocytes % (Manual) Monocytes % (Manual) Eosinophils % (Manual) Basophils % (Manual) Myelocytes % (Man) Promyelocytes % (Man) Blast Cells % (Manual) Nucleated RBC % Metamyelocytes Hypochromia Platelet Estimate Platelet Comment Polychromasia Poikilocytosis Basophilic Stippling Anisocytosis Microcytosis Macrocytosis Sodium 136 Potassium 5.0 Chloride 99 Carbon Dioxide 32 Anion Gap 4 L BUN 63.4 H Creatinine 1.5 H Est GFR (CKD-EPI)AfAm 39.92 Est GFR (CKD-EPI)NonAf 34.45 POC Glucometer 325 252 Random Glucose 233 H Calcium 8.3 L Total Bilirubin 0.4 AST 8 L ALT 17 Alkaline Phosphatase 68 Total Protein 4.7 L Albumin 2.3 L ASSESSMENT AND PLAN: Acute Hypoxic and Hypercapneic Respiratory Failure improving Acute COPD Exacerbation Acute on Chronic Diastolic Heart Failure UTI r/o Pneumonia CAD DM Morbid Obesity Likely Obstructive Sleep Apnea - continue antibiotics - continue lasix - monitor urine output, creatinine - daily weights - taper medrol - inhaled bronchodilators - O2 to keep SpO2 >90% - PO as tolerated - DVT/GI prophylaxis - can monitor on telemetry Problem List - Problems (1) COPD exacerbation Code(s): J44.1 - CHRONIC OBSTRUCTIVE PULMONARY DISEASE W (ACUTE) EXACERBATION ASSESSMENT AND PLAN: Acute Hypoxic and Hypercapneic Respiratory Failure improving Acute COPD Exacerbation Acute on Chronic Diastolic Heart Failure UTI Suspected Pneumonia CAD DM Morbid Obesity Likely Obstructive Sleep Apnea - Noted Medrol taper: can likely change to Prednisone in the next 24 to 48 hours - ABX - daily weights - inhaled bronchodilators - O2 to keep SpO2 >90% - PO as tolerated - DVT/GI prophylaxis - Will need formal sleep testing after discharge Dr Juarez
[2019-03-02] MEDS ORDERED: DEXTROSE 5%-WATER - 50 ML IVPB ONE (10:23)
[2019-03-02] MEDS ORDERED: cefTRIAXone SODIUM 1 GM VIAL ONE (10:23)
[2019-03-02] MEDS: DOCUSATE NA 100 MG/10 ML UNIT-DOSE CUPS PO SCH ×2 (10:41→22:18)
[2019-03-02] MEDS: CALCIUM 500MG/VIT-D 200 UNITS COMBO TABLET (FP) PO SCH (10:42)
[2019-03-02] MEDS: GABAPENTIN 300 MG CAPSULE (FP) PO SCH ×2 (10:42→22:18)
[2019-03-02] MEDS: ASPIRIN 81 MG CHEWABLE TABLETS PO SCH (10:42)
[2019-03-02] MEDS: PANTOPRAZOLE 20 MG TABLET (FP) PO SCH (10:42)
[2019-03-02] MEDS: CLOPIDOGREL BISULFATE 75 MG TABLET (FP) PO SCH (10:42)
--- NOTE | 2019-03-02 11:18 | PN ---
Progress Note, RADIO RECORDER - Note Progress Note: Selected Entries 03/01/19 03/01/19 03/01/19 02:00 06:00 08:00 Breakfast Lunch Supper Temperature 97.9 F 97.9 F 97.8 F 03/01/19 03/01/19 03/01/19 09:54 10:00 12:00 Breakfast 100% 100% Lunch Supper Temperature 98.9 F 03/01/19 03/01/19 03/01/19 13:56 17:00 18:54 Breakfast Lunch 75% Supper 100% Temperature 98.6 F 97.9 F 03/01/19 03/02/19 03/02/19 21:00 02:00 06:00 Breakfast Lunch Supper Temperature 98 F 97.6 F 97.7 F 03/02/19 11:07 Breakfast 100% Lunch Supper Temperature Laboratory Tests 02/26/19 02/27/19 02/28/19 10:50 05:50 05:23 WBC 10.5 H 7.9 12.1 H 03/01/19 05:53 WBC 14.0 H Overtly tolerating diet. Request family bring in dentures to upgrade diet. Trial reg, chopped diet. 3 oz water test (-). Dysphonic. Silent aspiration can not be r/o at bedside.
[2019-03-02] MEDS: NYSTATIN POWDER 100,000 UNITS/GM - 15 GM TOPICAL POWDER TP SCH ×2 (11:35→22:24)
[2019-03-02] MEDS ORDERED: PT OWN MED DRAWER 7, Y5N ONE (12:01)
[2019-03-02 16:09] VITALS: BMI 59.2
--- NOTE | 2019-03-02 16:33 | PN ---
Progress Note, Physician History of Present Illness: Pt seen and examined at bedside. She refused meade to be removed. - Current Medication List Current Medications: Active Medications Acetaminophen (Tylenol -) 650 mg PO Q6H PRN PRN Reason: PAIN LEVEL 1-5 Albuterol Sulfate (Ventolin 0.083% Nebulizer Soln -) 1 amp NEB Q4H PRN PRN Reason: SHORT OF BREATH/WHEEZING Albuterol/Ipratropium (Duoneb -) 1 amp NEB RQID [facility] Last Admin: 03/02/19 12:00 Dose: 1 amp Aspirin (Asa -) 81 mg PO DAILY [facility] Last Admin: 03/02/19 10:42 Dose: 81 mg Atorvastatin Calcium (Lipitor -) 20 mg PO HS [facility] Calcium Carbonate/Cholecalciferol (Os-Jorge 500+D -) 2 tab PO DAILY [facility] Last Admin: 03/02/19 10:42 Dose: 2 tab Clopidogrel Bisulfate (Plavix -) 75 mg PO DAILY [facility] Last Admin: 03/02/19 10:42 Dose: 75 mg Docusate Sodium (Colace Liquid -) 300 mg PO BID [facility] Last Admin: 03/02/19 10:41 Dose: 300 mg Gabapentin (Neurontin -) 300 mg PO BID [facility] Last Admin: 03/02/19 10:42 Dose: 300 mg Guaifenesin (Robitussin -) 10 ml PO Q6H PRN PRN Reason: COUGH Heparin Sodium (Porcine) (Heparin -) 5,000 unit SQ TID [facility] Last Admin: 03/02/19 14:17 Dose: 5,000 unit Ceftriaxone Sodium 1 gm/ (Dextrose) 50 mls @ 100 mls/hr IVPB DAILY [facility] Last Admin: 03/02/19 10:41 Dose: 100 mls/hr Insulin Aspart (Novolog Vial Sliding Scale -) 1 vial SQ ACHS [facility]; Protocol Last Admin: 03/02/19 12:15 Dose: 4 units Methylprednisolone Sodium Succinate (Solu-Medrol -) 40 mg IVPUSH BID [facility] Last Admin: 03/02/19 10:41 Dose: 40 mg Morphine Sulfate (Msir -) 30 mg PO Q4H PRN PRN Reason: PAIN LEVEL 6-10 Nystatin (Nystop Powder -) 1 applic TP BID [facility] Last Admin: 03/02/19 11:35 Dose: 1 applic Ondansetron HCl (Zofran Injection) 8 mg IVPB Q8H PRN PRN Reason: NAUSEA Pantoprazole Sodium (Protonix -) 20 mg PO DAILY [facility] Last Admin: 03/02/19 10:42 Dose: 20 mg - Objective Vital Signs: Vital Signs Temperature 98.4 F 03/02/19 14:35 Pulse Rate 69 03/02/19 14:35 Respiratory Rate 18 03/02/19 14:35 Blood Pressure 142/79 03/02/19 14:35 O2 Sat by Pulse Oximetry (%) 90 L 03/01/19 22:00 Constitutional: Yes: Calm Eyes: Yes: Conjunctiva Clear HENT: Yes: Atraumatic Neck: Yes: Supple Cardiovascular: Yes: S1, S2 Respiratory: Yes: CTA Bilaterally Gastrointestinal: Yes: Soft Genitourinary: Yes: Meade Present Musculoskeletal: Yes: WNL Edema: Yes Edema: LLE: 2+, RLE: 2+ Neurological: Yes: Oriented Psychiatric: Yes: Oriented Labs: CBC, BMP 03/01/19 05:53 03/02/19 05:20 INR, PTT INR 1.10 (0.83-1.09) H 02/19/19 21:07 Problem List - Problems (1) Hyperkalemia Code(s): E87.5 - HYPERKALEMIA (2) CHF (congestive heart failure) Code(s): I50.9 - HEART FAILURE, UNSPECIFIED Qualifiers: Heart failure type: unspecified Heart failure chronicity: unspecified Qualified Code(s): I50.9 - Heart failure, unspecified (3) Renal insufficiency Code(s): N28.9 - DISORDER OF KIDNEY AND URETER, UNSPECIFIED Assessment/Plan Current Medications Generic Name Dose Route Start Last Admin Trade Name Freq PRN Reason Stop Dose Admin Acetaminophen 650 mg 03/02/19 07:56 Tylenol - PO Q6H PRN PAIN LEVEL 1-5 Albuterol Sulfate 1 amp 03/02/19 07:56 Ventolin 0.083% Nebulizer Soln - NEB Q4H PRN SHORT OF BREATH/WHEEZING Albuterol/Ipratropium 1 amp 03/02/19 08:00 03/02/19 12:00 Duoneb - NEB 1 amp RQID [facility] Administration Aspirin 81 mg 03/02/19 10:00 03/02/19 10:42 Asa - PO 81 mg DAILY [facility] Administration Atorvastatin Calcium 20 mg 03/02/19 22:00 Lipitor - PO HS [facility] Calcium Carbonate/Cholecalciferol 2 tab 03/02/19 10:00 03/02/19 10:42 Os-Jorge 500+D - PO 2 tab DAILY [facility] Administration Clopidogrel Bisulfate 75 mg 03/02/19 10:00 03/02/19 10:42 Plavix - PO 75 mg DAILY [facility] Administration Docusate Sodium 300 mg 03/02/19 10:00 03/02/19 10:41 Colace Liquid - PO 300 mg BID [facility] Administration Gabapentin 300 mg 03/01/19 10:45 03/02/19 10:42 Neurontin - PO 300 mg BID [facility] Administration Guaifenesin 10 ml 03/02/19 07:56 Robitussin - PO Q6H PRN COUGH Heparin Sodium (Porcine) 5,000 unit 03/02/19 14:00 03/02/19 14:17 Heparin - SQ 5,000 unit TID [facility] Administration Ceftriaxone Sodium 1 gm/ 50 mls @ 100 mls/hr 03/02/19 10:00 03/02/19 10:41 Dextrose IVPB 100 mls/hr DAILY [facility] Administration Insulin Aspart 1 vial 03/02/19 11:00 03/02/19 12:15 Novolog Vial Sliding Scale - SQ 4 units ACHS [facility] Administration Protocol Methylprednisolone Sodium Succinate 40 mg 03/02/19 08:45 03/02/19 10:41 Solu-Medrol - IVPUSH 40 mg BID [facility] Administration Morphine Sulfate 30 mg 03/02/19 07:56 Msir - PO Q4H PRN PAIN LEVEL 6-10 Nystatin 1 applic 03/02/19 10:00 03/02/19 11:35 Nystop Powder - TP 1 applic BID [facility] Administration Ondansetron HCl 8 mg 03/02/19 07:56 Zofran Injection IVPB Q8H PRN NAUSEA Pantoprazole Sodium 20 mg 03/02/19 10:00 03/02/19 10:42 Protonix - PO 20 mg DAILY [facility] Administration Impression 1. hyperkalemia 2. edema 3. chf 4. cough 5. morbid obesity 6. dm 7. asthma 8. cad 9. acuter resp failure 10. SANGITA Plan - cont lasix - monitor renal function - d/c meade cath - monitor volume status - monitor sodium - arb and amlodipine on hold
[2019-03-02] MEDS: FUROSEMIDE 40 MG/4 ML INJECTABLE VIAL IVPUSH SCH (17:31)
[2019-03-02] MEDS: ATORVASTATIN CA 20 MG TABLET (FP) PO SCH (22:18)
[2019-03-03] MEDS: INSULIN SLIDING SCALE (NOVOLOG) 1 VIAL SQ SCH ×4 (06:23→22:29)
[2019-03-03] MEDS: HEPARIN NA (PORCINE) 5,000 UNITS/ML 1ML VIAL SQ SCH ×3 (06:23→22:30)
[2019-03-03] MEDS: FUROSEMIDE 40 MG/4 ML INJECTABLE VIAL IVPUSH SCH ×2 (06:27→16:06)
[2019-03-03 07:28] LABS: ALBUMIN 2.1 g/dl (3.4-5.0); BILIRUBIN,TOTAL 0.4 mg/dL (0.2-1); BLOOD UREA NITROGEN 66.6 mg/dL (7-18); CREATININE 1.5 mg/dL (0.55-1.3); POTASSIUM 4.9 mmol/L (3.5-5.1); TOT PROT 4.3 g/dl (6.4-8.2)
[2019-03-03] MEDS: ALBUTEROL SO4 2.5/IPRATROPIUM 0.5 INH SOL 3 ML VIAL.NEB. NEB SCH ×4 (07:44→20:55)
--- NOTE | 2019-03-03 09:09 | PN ---
Progress Note (short form) - Note Progress Note: 03/01/19 05:53 03/03/19 05:45 Vital Signs Period Temp Pulse Resp BP Sys/Gottlieb Pulse Ox Last 24 Hr 97.3 F-98.4 F 56-80 18-20 112-143/54-84 93-95 morbidly obese s1s2 rrr lungs clear anteriorly abd obese tr edema awake but somnolent-states she did not sleep well acute respiratory failure due to hypoventilation, NIKHIL UTI CKD-acute on chr. baseline creat~1.2 staph coag neg. anaerobic bottlex1 on blood culture-contaminant acute CHF metabolic encephalopathy dm htn cad morbid obesity switch to oral steroids iv diuresis while inpatient riss iv ceftriaxone dc today completed 7 days for uti cont pt if maintains mentation/respiratory status will dc to snf tomorrow Problem List - Problems (1) Acute respiratory failure Code(s): J96.00 - ACUTE RESPIRATORY FAILURE, UNSP W HYPOXIA OR HYPERCAPNIA Qualifiers: Respiratory failure complication: hypoxia and hypercapnia Qualified Code(s) : J96.01 - Acute respiratory failure with hypoxia; J96.02 - Acute respiratory failure with hypercapnia (2) Anxiety and depression Code(s): F41.9 - ANXIETY DISORDER, UNSPECIFIED; F32.9 - MAJOR DEPRESSIVE DISORDER, SINGLE EPISODE, UNSPECIFIED (3) CHF (congestive heart failure) Code(s): I50.9 - HEART FAILURE, UNSPECIFIED Qualifiers: Heart failure type: unspecified Heart failure chronicity: unspecified Qualified Code(s): I50.9 - Heart failure, unspecified (4) Diastolic CHF Code(s): I50.30 - UNSPECIFIED DIASTOLIC (CONGESTIVE) HEART FAILURE Qualifiers: Heart failure chronicity: acute on chronic Qualified Code(s): I50.33 - Acute on chronic diastolic (congestive) heart failure (5) Hx of heart artery stent Code(s): Z95.5 - PRESENCE OF CORONARY ANGIOPLASTY IMPLANT AND GRAFT (6) Renal insufficiency Code(s): N28.9 - DISORDER OF KIDNEY AND URETER, UNSPECIFIED (7) SANGITA (acute kidney injury) Code(s): N17.9 - ACUTE KIDNEY FAILURE, UNSPECIFIED (8) CAD (coronary artery disease) Code(s): I25.10 - ATHSCL HEART DISEASE OF [place] CORONARY ARTERY W/O ANG PCTRS Qualifiers: Coronary Disease-Associated Artery/Lesion type: [place] artery Associated angina: without angina (9) COPD exacerbation Code(s): J44.1 - CHRONIC OBSTRUCTIVE PULMONARY DISEASE W (ACUTE) EXACERBATION (10) HTN (hypertension) Code(s): I10 - ESSENTIAL (PRIMARY) HYPERTENSION Qualifiers: Hypertension type: essential hypertension Qualified Code(s): I10 - Essential (primary) hypertension (11) Hypothyroid Code(s): E03.9 - HYPOTHYROIDISM, UNSPECIFIED (12) Morbid obesity Code(s): E66.01 - MORBID (SEVERE) OBESITY DUE TO EXCESS CALORIES (13) Urinary tract infection Code(s): N39.0 - URINARY TRACT INFECTION, SITE NOT SPECIFIED Qualifiers: Urinary tract infection type: site unspecified Hematuria presence: without hematuria Qualified Code(s): N39.0 - Urinary tract infection, site not specified
[2019-03-03] MEDS: NYSTATIN POWDER 100,000 UNITS/GM - 15 GM TOPICAL POWDER TP SCH ×2 (10:00→22:43)
--- NOTE | 2019-03-03 10:58 | PN ---
Progress Note, Physician History of Present Illness: PULMONARY ALERT,FEELING BETTER,COMFORTABLE,-RESP DISTRESS - Current Medication List Current Medications: Active Medications Acetaminophen (Tylenol -) 650 mg PO Q6H PRN PRN Reason: PAIN LEVEL 1-5 Albuterol Sulfate (Ventolin 0.083% Nebulizer Soln -) 1 amp NEB Q4H PRN PRN Reason: SHORT OF BREATH/WHEEZING Albuterol/Ipratropium (Duoneb -) 1 amp NEB RQID [facility] Last Admin: 03/03/19 07:44 Dose: 1 amp Aspirin (Asa -) 81 mg PO DAILY [facility] Last Admin: 03/02/19 10:42 Dose: 81 mg Atorvastatin Calcium (Lipitor -) 20 mg PO HS [facility] Last Admin: 03/02/19 22:18 Dose: 20 mg Calcium Carbonate/Cholecalciferol (Os-Jorge 500+D -) 2 tab PO DAILY [facility] Last Admin: 03/02/19 10:42 Dose: 2 tab Clopidogrel Bisulfate (Plavix -) 75 mg PO DAILY [facility] Last Admin: 03/02/19 10:42 Dose: 75 mg Docusate Sodium (Colace Liquid -) 300 mg PO BID [facility] Last Admin: 03/02/19 22:18 Dose: 300 mg Furosemide (Lasix Injection -) 40 mg IVPUSH BID@0600,1400 [facility] Last Admin: 03/03/19 06:27 Dose: 40 mg Gabapentin (Neurontin -) 300 mg PO BID [facility] Last Admin: 03/02/19 22:18 Dose: 300 mg Guaifenesin (Robitussin -) 10 ml PO Q6H PRN PRN Reason: COUGH Heparin Sodium (Porcine) (Heparin -) 5,000 unit SQ TID [facility] Last Admin: 03/03/19 06:23 Dose: 5,000 unit Insulin Aspart (Novolog Vial Sliding Scale -) 1 vial SQ ACHS [facility]; Protocol Last Admin: 03/03/19 06:23 Dose: 6 units Morphine Sulfate (Msir -) 30 mg PO Q4H PRN PRN Reason: PAIN LEVEL 6-10 Last Admin: 03/02/19 22:19 Dose: 30 mg Nystatin (Nystop Powder -) 1 applic TP BID [facility] Last Admin: 03/02/19 22:24 Dose: 1 applic Pantoprazole Sodium (Protonix -) 20 mg PO DAILY [facility] Last Admin: 03/02/19 10:42 Dose: 20 mg Prednisone (Deltasone -) 40 mg PO DAILY [facility] - Objective Vital Signs: Vital Signs Temperature 98 F 03/03/19 05:00 Pulse Rate 56 L 03/03/19 05:00 Respiratory Rate 18 03/03/19 05:00 Blood Pressure 136/63 03/03/19 05:00 O2 Sat by Pulse Oximetry (%) 93 L 03/03/19 07:43 Constitutional: Yes: Well Nourished, Obese Eyes: Yes: WNL HENT: Yes: WNL Neck: Yes: WNL Cardiovascular: Yes: Regular Rate and Rhythm, S1, S2 Respiratory: Yes: Diminished Gastrointestinal: Yes: Normal Bowel Sounds, Soft Extremities: Yes: WNL Edema: Yes Labs: CBC, BMP 03/03/19 05:45 INR, PTT INR 1.10 (0.83-1.09) H 02/19/19 21:07 Problem List - Problems (1) Acute respiratory failure Code(s): J96.00 - ACUTE RESPIRATORY FAILURE, UNSP W HYPOXIA OR HYPERCAPNIA Qualifiers: Respiratory failure complication: hypoxia and hypercapnia Qualified Code(s) : J96.01 - Acute respiratory failure with hypoxia; J96.02 - Acute respiratory failure with hypercapnia (2) CHF (congestive heart failure) Code(s): I50.9 - HEART FAILURE, UNSPECIFIED Qualifiers: Heart failure type: unspecified Heart failure chronicity: unspecified Qualified Code(s): I50.9 - Heart failure, unspecified (3) Hx of heart artery stent Code(s): Z95.5 - PRESENCE OF CORONARY ANGIOPLASTY IMPLANT AND GRAFT (4) Acute respiratory failure with hypoxia and hypercapnia Code(s): J96.01 - ACUTE RESPIRATORY FAILURE WITH HYPOXIA; J96.02 - ACUTE RESPIRATORY FAILURE WITH HYPERCAPNIA (5) [id number] kidney injury Code(s): N17.9 - ACUTE KIDNEY FAILURE, UNSPECIFIED; N18.9 - CHRONIC KIDNEY DISEASE, UNSPECIFIED (6) CAD (coronary artery disease) Code(s): I25.10 - ATHSCL HEART DISEASE OF [place] CORONARY ARTERY W/O ANG PCTRS Qualifiers: Coronary Disease-Associated Artery/Lesion type: [place] artery Associated angina: without angina (7) COPD exacerbation Code(s): J44.1 - CHRONIC OBSTRUCTIVE PULMONARY DISEASE W (ACUTE) EXACERBATION (8) Diabetes mellitus Code(s): E11.9 - TYPE 2 DIABETES MELLITUS WITHOUT COMPLICATIONS Qualifiers: Diabetes mellitus type: type 2 Diabetes mellitus chcf insulin use: with 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 Diabetes mellitus complication status: without complication Qualified Code(s): E11.9 - Type 2 diabetes mellitus without complications; 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.4 - 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 (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) use of insulin Assessment/Plan ASSESSMENT AND PLAN: Acute Hypoxic and Hypercapneic Respiratory Failure improving Acute COPD Exacerbation Acute on Chronic Diastolic Heart Failure UTI r/o Pneumonia CAD DM Morbid Obesity Likely Obstructive Sleep Apnea - continue antibiotics - continue lasix - monitor urine output, creatinine - daily weights - taper medrol - inhaled bronchodilators - O2 to keep SpO2 >90% - PO as tolerated - DVT/GI prophylaxis - can monitor on telemetry Problem List - Problems (1) COPD exacerbation Code(s): J44.1 - CHRONIC OBSTRUCTIVE PULMONARY DISEASE W (ACUTE) EXACERBATION ASSESSMENT AND PLAN: Acute Hypoxic and Hypercapneic Respiratory Failure improving Acute COPD Exacerbation improving Acute on Chronic Diastolic Heart Failure UTI Suspected Pneumonia CAD DM Morbid Obesity Likely Obstructive Sleep Apnea - Prednisone - ABX - daily weights - inhaled bronchodilators - O2 to keep SpO2 >90% - PO as tolerated - DVT/GI prophylaxis - Will need formal sleep testing after discharge DR PIERSON
--- NOTE | 2019-03-03 11:56 | PN ---
Progress Note, [employer] - Note Progress Note: Selected Entries 03/02/19 03/02/19 03/02/19 02:00 06:00 10:00 Lunch Supper Temperature 97.6 F 97.7 F 98 F 03/02/19 03/02/19 03/02/19 13:02 14:35 17:00 Lunch 100% Supper Temperature 98.4 F 98.2 F 03/02/19 03/02/19 03/02/19 19:30 21:00 22:00 Lunch Supper 100% 100% Temperature 97.8 F 03/03/19 03/03/19 01:50 05:00 Lunch Supper Temperature 97.3 F L 98 F Laboratory Tests 02/28/19 03/01/19 05:23 05:53 WBC 12.1 H 14.0 H Pt upgraded to soft diet. She reports that she is tolerating reg food well that her faMILY HAS BROUGHT. sHE ENJOYED A HAMBURGER LAST NIGHT. Few teeth but feelsd she chews well.
[2019-03-03] MEDS: CLOPIDOGREL BISULFATE 75 MG TABLET (FP) PO SCH (12:25)
[2019-03-03] MEDS: CALCIUM 500MG/VIT-D 200 UNITS COMBO TABLET (FP) PO SCH (12:25)
[2019-03-03] MEDS: GABAPENTIN 300 MG CAPSULE (FP) PO SCH ×2 (12:25→22:30)
[2019-03-03] MEDS: DOCUSATE NA 100 MG/10 ML UNIT-DOSE CUPS PO SCH ×2 (12:25→22:30)
[2019-03-03] MEDS: ASPIRIN 81 MG CHEWABLE TABLETS PO SCH (12:25)
[2019-03-03] MEDS: predniSONE 20 MG TABLET (UD) PO SCH (12:26)
[2019-03-03] MEDS: PANTOPRAZOLE 20 MG TABLET (FP) PO SCH (12:26)
[2019-03-03] MEDS ORDERED: PT OWN MED DRAWER 7, Y5N ONE (12:50)
[2019-03-03] MEDS: morphine SULFATE IMMEDIATE RELEASE 30 MG TAB PO PRN ×2 (12:52→22:31)
--- NOTE | 2019-03-03 16:07 | PN ---
Progress Note, Physician History of Present Illness: Pt seen and examined at bedside. She is awake and alert. She feels that her shortness of breath is improved. She denies chest pain or palpitations. Cadena was removed. - Current Medication List Current Medications: Active Medications Acetaminophen (Tylenol -) 650 mg PO Q6H PRN PRN Reason: PAIN LEVEL 1-5 Albuterol Sulfate (Ventolin 0.083% Nebulizer Soln -) 1 amp NEB Q4H PRN PRN Reason: SHORT OF BREATH/WHEEZING Albuterol/Ipratropium (Duoneb -) 1 amp NEB RQID [facility] Last Admin: 03/03/19 12:24 Dose: 1 amp Aspirin (Asa -) 81 mg PO DAILY [facility] Last Admin: 03/03/19 12:25 Dose: 81 mg Atorvastatin Calcium (Lipitor -) 20 mg PO HS [facility] Last Admin: 03/02/19 22:18 Dose: 20 mg Calcium Carbonate/Cholecalciferol (Os-Jorge 500+D -) 2 tab PO DAILY [facility] Last Admin: 03/03/19 12:25 Dose: 2 tab Clopidogrel Bisulfate (Plavix -) 75 mg PO DAILY [facility] Last Admin: 03/03/19 12:25 Dose: 75 mg Docusate Sodium (Colace Liquid -) 300 mg PO BID [facility] Last Admin: 03/03/19 12:25 Dose: 300 mg Furosemide (Lasix Injection -) 40 mg IVPUSH BID@0600,1400 [facility] Last Admin: 03/03/19 06:27 Dose: 40 mg Gabapentin (Neurontin -) 300 mg PO BID [facility] Last Admin: 03/03/19 12:25 Dose: 300 mg Guaifenesin (Robitussin -) 10 ml PO Q6H PRN PRN Reason: COUGH Heparin Sodium (Porcine) (Heparin -) 5,000 unit SQ TID [facility] Last Admin: 03/03/19 06:23 Dose: 5,000 unit Insulin Aspart (Novolog Vial Sliding Scale -) 1 vial SQ ACHS [facility]; Protocol Last Admin: 03/03/19 12:54 Dose: 4 units Morphine Sulfate (Msir -) 30 mg PO Q4H PRN PRN Reason: PAIN LEVEL 6-10 Last Admin: 03/03/19 12:52 Dose: 30 mg Nystatin (Nystop Powder -) 1 applic TP BID [facility] Last Admin: 03/02/19 22:24 Dose: 1 applic Pantoprazole Sodium (Protonix -) 20 mg PO DAILY [facility] Last Admin: 03/03/19 12:26 Dose: 20 mg Prednisone (Deltasone -) 40 mg PO DAILY [facility] Last Admin: 03/03/19 12:26 Dose: 40 mg - Objective Vital Signs: Vital Signs Temperature 98 F 03/03/19 05:00 Pulse Rate 82 03/03/19 09:00 Respiratory Rate 18 03/03/19 09:00 Blood Pressure 118/74 03/03/19 09:00 O2 Sat by Pulse Oximetry (%) 93 L 03/03/19 09:00 Constitutional: Yes: Calm Eyes: Yes: Conjunctiva Clear HENT: Yes: Atraumatic Cardiovascular: Yes: S1, S2 Respiratory: Yes: On Nasal O2 Gastrointestinal: Yes: Soft, Abdomen, Obese Genitourinary: Yes: Incontinence Musculoskeletal: Yes: WNL Edema: Yes Edema: LLE: 2+, RLE: 2+ Neurological: Yes: Oriented Psychiatric: Yes: Oriented Labs: CBC, BMP 03/01/19 05:53 03/03/19 05:45 INR, PTT INR 1.10 (0.83-1.09) H 02/19/19 21:07 Problem List - Problems (1) Hyperkalemia Code(s): E87.5 - HYPERKALEMIA (2) CHF (congestive heart failure) Code(s): I50.9 - HEART FAILURE, UNSPECIFIED Qualifiers: Heart failure type: unspecified Heart failure chronicity: unspecified Qualified Code(s): I50.9 - Heart failure, unspecified (3) Renal insufficiency Code(s): N28.9 - DISORDER OF KIDNEY AND URETER, UNSPECIFIED Assessment/Plan Current Medications Generic Name Dose Route Start Last Admin Trade Name Freq PRN Reason Stop Dose Admin Acetaminophen 650 mg 03/02/19 07:56 Tylenol - PO Q6H PRN PAIN LEVEL 1-5 Albuterol Sulfate 1 amp 03/02/19 07:56 Ventolin 0.083% Nebulizer Soln - NEB Q4H PRN SHORT OF BREATH/WHEEZING Albuterol/Ipratropium 1 amp 03/02/19 08:00 03/03/19 12:24 Duoneb - NEB 1 amp RQID [facility] Administration Aspirin 81 mg 03/02/19 10:00 03/03/19 12:25 Asa - PO 81 mg DAILY [facility] Administration Atorvastatin Calcium 20 mg 03/02/19 22:00 03/02/19 22:18 Lipitor - PO 20 mg HS [facility] Administration Calcium Carbonate/Cholecalciferol 2 tab 03/02/19 10:00 03/03/19 12:25 Os-Jorge 500+D - PO 2 tab DAILY [facility] Administration Clopidogrel Bisulfate 75 mg 03/02/19 10:00 03/03/19 12:25 Plavix - PO 75 mg DAILY [facility] Administration Docusate Sodium 300 mg 03/02/19 10:00 03/03/19 12:25 Colace Liquid - PO 300 mg BID [facility] Administration Furosemide 40 mg 03/02/19 16:33 03/03/19 06:27 Lasix Injection - IVPUSH 40 mg BID@0600,1400 [facility] Administration Gabapentin 300 mg 03/01/19 10:45 03/03/19 12:25 Neurontin - PO 300 mg BID [facility] Administration Guaifenesin 10 ml 03/02/19 07:56 Robitussin - PO Q6H PRN COUGH Heparin Sodium (Porcine) 5,000 unit 03/02/19 14:00 03/03/19 06:23 Heparin - SQ 5,000 unit TID [facility] Administration Insulin Aspart 1 vial 03/02/19 11:00 03/03/19 12:54 Novolog Vial Sliding Scale - SQ 4 units ACHS [facility] Administration Protocol Morphine Sulfate 30 mg 03/02/19 07:56 03/03/19 12:52 Msir - PO 30 mg Q4H PRN Administration PAIN LEVEL 6-10 Nystatin 1 applic 03/02/19 10:00 03/02/19 22:24 Nystop Powder - TP 1 applic BID [facility] Administration Pantoprazole Sodium 20 mg 03/02/19 10:00 03/03/19 12:26 Protonix - PO 20 mg DAILY [facility] Administration Prednisone 40 mg 03/03/19 10:00 03/03/19 12:26 Deltasone - PO 40 mg DAILY [facility] Administration Impression 1. hyperkalemia 2. edema 3. chf 4. cough 5. morbid obesity 6. dm 7. asthma 8. cad 9. acuter resp failure 10. SANGITA Plan - cont IV lasix for now - increase lasix to 40 mg po bid on discharge - discussed fluid intake and low sodium diet with patient and her family at length today - arb on hold as potassium is on high side - will need outpt follow up - recommend weight loss
--- NOTE | 2019-03-03 21:29 | PN ---
Progress Note, Physician Chief Complaint: Pt. A&Ox3; able to converse without strain, though gets SOB even trying to change position in bed. History of Present Illness: The patient is a 73 year old white female with a past medical history of morbid obesity, CAD s/p stents, HTN, HLD, COPD/?asthma, history of MRSA, sleep apnea, OA, diabetes, now here today for evaluation of cough. The patient reports that she has had a productive cough for the past few days. She also reports nausea, vomiting, and diarrhea but states that these have been chronic and intermittent. Patient notes chronic lower extremity edema but states that it is worse today. Patient denies headache, lightheadedness. Denies fever, chills. Denies chest pain, shortness of breath. Denies diarrhea. Allergies: metoprolol, metronidazole PCP: Vinicio Leahy - Current Medication List Current Medications: Active Medications Acetaminophen (Tylenol -) 650 mg PO Q6H PRN PRN Reason: PAIN LEVEL 1-5 Albuterol Sulfate (Ventolin 0.083% Nebulizer Soln -) 1 amp NEB Q4H PRN PRN Reason: SHORT OF BREATH/WHEEZING Albuterol/Ipratropium (Duoneb -) 1 amp NEB RQID [facility] Last Admin: 03/03/19 16:48 Dose: 1 amp Aspirin (Asa -) 81 mg PO DAILY [facility] Last Admin: 03/03/19 12:25 Dose: 81 mg Atorvastatin Calcium (Lipitor -) 20 mg PO HS [facility] Last Admin: 03/02/19 22:18 Dose: 20 mg Calcium Carbonate/Cholecalciferol (Os-Jorge 500+D -) 2 tab PO DAILY [facility] Last Admin: 03/03/19 12:25 Dose: 2 tab Clopidogrel Bisulfate (Plavix -) 75 mg PO DAILY [facility] Last Admin: 03/03/19 12:25 Dose: 75 mg Docusate Sodium (Colace Liquid -) 300 mg PO BID [facility] Last Admin: 03/03/19 12:25 Dose: 300 mg Furosemide (Lasix Injection -) 40 mg IVPUSH BID@0600,1400 [facility] Last Admin: 03/03/19 16:06 Dose: 40 mg Gabapentin (Neurontin -) 300 mg PO BID [facility] Last Admin: 03/03/19 12:25 Dose: 300 mg Guaifenesin (Robitussin -) 10 ml PO Q6H PRN PRN Reason: COUGH Heparin Sodium (Porcine) (Heparin -) 5,000 unit SQ TID [facility] Last Admin: 03/03/19 16:06 Dose: 5,000 unit Insulin Aspart (Novolog Vial Sliding Scale -) 1 vial SQ ACHS [facility]; Protocol Last Admin: 03/03/19 17:58 Dose: 2 units Morphine Sulfate (Msir -) 30 mg PO Q4H PRN PRN Reason: PAIN LEVEL 6-10 Last Admin: 03/03/19 12:52 Dose: 30 mg Nystatin (Nystop Powder -) 1 applic TP BID [facility] Last Admin: 03/03/19 10:00 Dose: 1 applic Pantoprazole Sodium (Protonix -) 20 mg PO DAILY [facility] Last Admin: 03/03/19 12:26 Dose: 20 mg Prednisone (Deltasone -) 40 mg PO DAILY [facility] Last Admin: 03/03/19 12:26 Dose: 40 mg - Objective Vital Signs: Vital Signs Temperature 98.0 F 03/03/19 17:00 Pulse Rate 81 03/03/19 17:00 Respiratory Rate 20 03/03/19 17:00 Blood Pressure 123/75 03/03/19 17:00 O2 Sat by Pulse Oximetry (%) 94 L 03/03/19 16:49 Constitutional: Yes: Calm Eyes: Yes: WNL HENT: Yes: WNL Neck: Yes: WNL Cardiovascular: Yes: S1, S2, S4 Respiratory: Yes: Diminished Gastrointestinal: Yes: Soft, Abdomen, Obese ...Rectal Exam: Yes: Deferred Genitourinary: No: Anuria Musculoskeletal: Yes: Joint Stiffness, Joint Swelling, Muscle Weakness Extremities: Yes: Cool, Other (right hand withered, small (from )) Edema: Yes Edema: LLE: 1+, RLE: 1+ Peripheral Pulses WNL: Yes Integumentary: Yes: Venous Stasis Changes Neurological: Yes: Alert, Oriented, Weakness Psychiatric: Yes: Alert, Oriented Labs: CBC, BMP 03/01/19 05:53 03/03/19 05:45 INR, PTT INR 1.10 (0.83-1.09) H 02/19/19 21:07 - ....Imaging Chest X-ray: Image Reviewed EKG: Image Reviewed Problem List - Problems (1) Diastolic CHF Assessment/Plan: ECHO: extremely limited views: normal LVEF; mild LVH; normal LV size; no pericardial effusion; valves could not be assesses. CXR: biltarerl pleural effusions persist. On furosemide IV 40 mg bid. Consider adding lisinopril (CHF; HTN; DM); f/u BUn/Cr, Is and Os, electrolytes closely. Code(s): I50.30 - UNSPECIFIED DIASTOLIC (CONGESTIVE) HEART FAILURE Qualifiers: Heart failure chronicity: acute on chronic Qualified Code(s): I50.33 - Acute on chronic diastolic (congestive) heart failure (2) Renal insufficiency Assessment/Plan: Renal US: limited study: no hydronephrosis of right; could not evaluate left kidney; f/u with nephrology. Code(s): N28.9 - DISORDER OF KIDNEY AND URETER, UNSPECIFIED (3) Sleep apnea Assessment/Plan: On nightly CPAP sleep studies,, if not done already, per pulmonary. Code(s): G47.30 - SLEEP APNEA, UNSPECIFIED (4) Anxiety and depression Code(s): F41.9 - ANXIETY DISORDER, UNSPECIFIED; F32.9 - MAJOR DEPRESSIVE DISORDER, SINGLE EPISODE, UNSPECIFIED (5) HTN (hypertension) Code(s): I10 - ESSENTIAL (PRIMARY) HYPERTENSION Qualifiers: Hypertension type: essential hypertension Qualified Code(s): I10 - Essential (primary) hypertension (6) Hyperlipidemia Code(s): E78.5 - HYPERLIPIDEMIA, UNSPECIFIED (7) Morbid obesity Code(s): E66.01 - MORBID (SEVERE) OBESITY DUE TO EXCESS CALORIES (8) Pericardial effusion Code(s): I31.3 - PERICARDIAL EFFUSION (NONINFLAMMATORY) (9) Sacral decubitus ulcer, stage II Code(s): L89.152 - PRESSURE ULCER OF SACRAL REGION, STAGE 2 (10) Cough Code(s): R05 - COUGH (11) Urinary tract infection Assessment/Plan: On antibiotics. Maintain fluids. Code(s): N39.0 - URINARY TRACT INFECTION, SITE NOT SPECIFIED Qualifiers: Urinary tract infection type: site unspecified Hematuria presence: without hematuria Qualified Code(s): N39.0 - Urinary tract infection, site not specified (12) Acute respiratory failure Code(s): J96.00 - ACUTE RESPIRATORY FAILURE, UNSP W HYPOXIA OR HYPERCAPNIA Qualifiers: Respiratory failure complication: hypoxia and hypercapnia Qualified Code(s) : J96.01 - Acute respiratory failure with hypoxia; J96.02 - Acute respiratory failure with hypercapnia (13) Hx of heart artery stent Code(s): Z95.5 - PRESENCE OF CORONARY ANGIOPLASTY IMPLANT AND GRAFT
[2019-03-03] MEDS: ATORVASTATIN CA 20 MG TABLET (FP) PO SCH (22:30)
[2019-03-04] MEDS: HEPARIN NA (PORCINE) 5,000 UNITS/ML 1ML VIAL SQ SCH (06:45)
[2019-03-04] MEDS: INSULIN SLIDING SCALE (NOVOLOG) 1 VIAL SQ SCH (06:45)
[2019-03-04] MEDS: FUROSEMIDE 40 MG/4 ML INJECTABLE VIAL IVPUSH SCH (06:45)
[2019-03-04 07:30] LABS: ALBUMIN 2.3 g/dl (3.4-5.0); BILIRUBIN,TOTAL 0.5 mg/dL (0.2-1); BLOOD UREA NITROGEN 71.1 mg/dL (7-18); CALCIUM 8.2 mg/dL (8.5-10.1); CREATININE 1.6 mg/dL (0.55-1.3); POTASSIUM 4.5 mmol/L (3.5-5.1); TOT PROT 4.6 g/dl (6.4-8.2)
--- NOTE | 2019-03-04 08:07 | PN ---
Progress Note, Physician Chief Complaint: Pt. A&Ox3; no chest pain or dyspnea. History of Present Illness: The patient is a 73 year old white female with a past medical history of morbid obesity, CAD s/p stents, HTN, HLD, COPD/?asthma, history of MRSA, sleep apnea, OA, diabetes, now here today for evaluation of cough. The patient reports that she has had a productive cough for the past few days. She also reports nausea, vomiting, and diarrhea but states that these have been chronic and intermittent. Patient notes chronic lower extremity edema but states that it is worse today. Patient denies headache, lightheadedness. Denies fever, chills. Denies chest pain, shortness of breath. Denies diarrhea. Allergies: metoprolol, metronidazole PCP: Vinicio Leahy - Current Medication List Current Medications: Active Medications Acetaminophen (Tylenol -) 650 mg PO Q6H PRN PRN Reason: PAIN LEVEL 1-5 Albuterol Sulfate (Ventolin 0.083% Nebulizer Soln -) 1 amp NEB Q4H PRN PRN Reason: SHORT OF BREATH/WHEEZING Albuterol/Ipratropium (Duoneb -) 1 amp NEB RQID [facility] Last Admin: 03/03/19 20:55 Dose: 1 amp Aspirin (Asa -) 81 mg PO DAILY [facility] Last Admin: 03/03/19 12:25 Dose: 81 mg Atorvastatin Calcium (Lipitor -) 20 mg PO HS [facility] Last Admin: 03/03/19 22:30 Dose: 20 mg Calcium Carbonate/Cholecalciferol (Os-Jorge 500+D -) 2 tab PO DAILY [facility] Last Admin: 03/03/19 12:25 Dose: 2 tab Clopidogrel Bisulfate (Plavix -) 75 mg PO DAILY [facility] Last Admin: 03/03/19 12:25 Dose: 75 mg Docusate Sodium (Colace Liquid -) 300 mg PO BID [facility] Last Admin: 03/03/19 22:30 Dose: 300 mg Furosemide (Lasix Injection -) 40 mg IVPUSH BID@0600,1400 [facility] Last Admin: 03/04/19 06:45 Dose: 40 mg Gabapentin (Neurontin -) 300 mg PO BID [facility] Last Admin: 03/03/19 22:30 Dose: 300 mg Guaifenesin (Robitussin -) 10 ml PO Q6H PRN PRN Reason: COUGH Heparin Sodium (Porcine) (Heparin -) 5,000 unit SQ TID [facility] Last Admin: 03/04/19 06:45 Dose: 5,000 unit Insulin Aspart (Novolog Vial Sliding Scale -) 1 vial SQ ACHS [facility]; Protocol Last Admin: 03/04/19 06:45 Dose: 2 units Morphine Sulfate (Msir -) 30 mg PO Q4H PRN PRN Reason: PAIN LEVEL 6-10 Last Admin: 03/03/19 22:31 Dose: 30 mg Nystatin (Nystop Powder -) 1 applic TP BID [facility] Last Admin: 03/03/19 22:43 Dose: 1 applic Pantoprazole Sodium (Protonix -) 20 mg PO DAILY [facility] Last Admin: 03/03/19 12:26 Dose: 20 mg Prednisone (Deltasone -) 40 mg PO DAILY [facility] Last Admin: 03/03/19 12: Dose: 40 mg - Objective Vital Signs: Vital Signs Temperature 97.3 F L 03/04/19 05:00 Pulse Rate 81 03/04/19 05:00 Respiratory Rate 18 03/04/19 05:00 Blood Pressure 125/54 L 03/04/19 05:00 O2 Sat by Pulse Oximetry (%) 95 03/04/19 04:32 Constitutional: Yes: No Distress, Calm, Obese Eyes: Yes: WNL HENT: Yes: WNL Neck: Yes: Decreased ROM Cardiovascular: Yes: S1, S2, S4 Respiratory: Yes: Regular, Diminished, On Nasal O2 Gastrointestinal: Yes: Abdomen, Obese ...Rectal Exam: Yes: Deferred Genitourinary: No: Anuria Breast(s): Yes: WNL Musculoskeletal: Yes: Joint Stiffness, Muscle Weakness, Other (decresaed ROM LEs chronic; right hand small from ) Extremities: Yes: Cool, Other (chronic enlargement of right knee) Edema: Yes Edema: LLE: 1+, RLE: 1+ Peripheral Pulses WNL: Yes Integumentary: Yes: Venous Stasis Changes Neurological: Yes: Alert, Oriented, Weakness Labs: CBC, BMP 03/01/19 05:53 03/04/19 05:55 INR, PTT INR 1.10 (0.83-1.09) H 02/19/19 21:07 - ....Imaging Other: Image Reviewed (telemetry: NSR; occasional PVCs) Problem List - Problems (1) Diastolic CHF Code(s): I50.30 - UNSPECIFIED DIASTOLIC (CONGESTIVE) HEART FAILURE Qualifiers: Heart failure chronicity: acute on chronic Qualified Code(s): I50.33 - Acute on chronic diastolic (congestive) heart failure (2) Renal insufficiency Assessment/Plan: Renal US: limited study: no hydronephrosis of right; could not evaluate left kidney; f/u with nephrology. Code(s): N28.9 - DISORDER OF KIDNEY AND URETER, UNSPECIFIED (3) Sleep apnea Assessment/Plan: On nightly CPAP sleep studies,, if not done already, per pulmonary. Code(s): G47.30 - SLEEP APNEA, UNSPECIFIED (4) Anxiety and depression Code(s): F41.9 - ANXIETY DISORDER, UNSPECIFIED; F32.9 - MAJOR DEPRESSIVE DISORDER, SINGLE EPISODE, UNSPECIFIED (5) HTN (hypertension) Code(s): I10 - ESSENTIAL (PRIMARY) HYPERTENSION Qualifiers: Hypertension type: essential hypertension Qualified Code(s): I10 - Essential (primary) hypertension (6) Hyperlipidemia Assessment/Plan: Total cholesterol 116 mg/dL. On atorvastatin Code(s): E78.5 - HYPERLIPIDEMIA, UNSPECIFIED (7) Pericardial effusion Assessment/Plan: by history; not noted on 04/26 or 02/23 ECHOs. Code(s): I31.3 - PERICARDIAL EFFUSION (NONINFLAMMATORY) (8) Sacral decubitus ulcer, stage II Code(s): L89.152 - PRESSURE ULCER OF SACRAL REGION, STAGE 2 (9) Cough Code(s): R05 - COUGH (10) Hx of heart artery stent Assessment/Plan: On ASA and Plavix TNI < 0.02 Code(s): Z95.5 - PRESENCE OF CORONARY ANGIOPLASTY IMPLANT AND GRAFT (11) [place] cardiac risk >20% in next 10 years Assessment/Plan: stress Persantine MIBI 01/2015: no ischemia On statin. Morbid obesity remains a central cause of pt's high risk for cardiopulmonary events. Code(s): Z91.89 - OTH PERSONAL RISK FACTORS, NOT ELSEWHERE CLASSIFIED (12) Respiratory failure Assessment/Plan: O2, bronchodilators, and steroids per greenhouse worker. Code(s): J96.90 - RESPIRATORY FAILURE, UNSP, UNSP W HYPOXIA OR HYPERCAPNIA
--- NOTE | 2019-03-04 08:18 | PN ---
Progress Note, Physician Chief Complaint: Pt. A&Ox3; feeling better; not SOB. History of Present Illness: The patient is a 73 year old white female with a past medical history of morbid obesity, CAD s/p stents, HTN, HLD, COPD/?asthma, history of MRSA, sleep apnea, OA, diabetes, now here today for evaluation of cough. The patient reports that she has had a productive cough for the past few days. She also reports nausea, vomiting, and diarrhea but states that these have been chronic and intermittent. Patient notes chronic lower extremity edema but states that it is worse today. Patient denies headache, lightheadedness. Denies fever, chills. Denies chest pain, shortness of breath. Denies diarrhea. Allergies: metoprolol, metronidazole PCP: Vinicio Leahy - Current Medication List Current Medications: Active Medications Acetaminophen (Tylenol -) 650 mg PO Q6H PRN PRN Reason: PAIN LEVEL 1-5 Albuterol Sulfate (Ventolin 0.083% Nebulizer Soln -) 1 amp NEB Q4H PRN PRN Reason: SHORT OF BREATH/WHEEZING Albuterol/Ipratropium (Duoneb -) 1 amp NEB RQID [facility] Last Admin: 03/03/19 20:55 Dose: 1 amp Aspirin (Asa -) 81 mg PO DAILY [facility] Last Admin: 03/03/19 12:25 Dose: 81 mg Atorvastatin Calcium (Lipitor -) 20 mg PO HS [facility] Last Admin: 03/03/19 22:30 Dose: 20 mg Calcium Carbonate/Cholecalciferol (Os-Jorge 500+D -) 2 tab PO DAILY [facility] Last Admin: 03/03/19 12:25 Dose: 2 tab Clopidogrel Bisulfate (Plavix -) 75 mg PO DAILY [facility] Last Admin: 03/03/19 12:25 Dose: 75 mg Docusate Sodium (Colace Liquid -) 300 mg PO BID [facility] Last Admin: 03/03/19 22:30 Dose: 300 mg Furosemide (Lasix Injection -) 40 mg IVPUSH BID@0600,1400 [facility] Last Admin: 03/04/19 06:45 Dose: 40 mg Gabapentin (Neurontin -) 300 mg PO BID [facility] Last Admin: 03/03/19 22:30 Dose: 300 mg Guaifenesin (Robitussin -) 10 ml PO Q6H PRN PRN Reason: COUGH Heparin Sodium (Porcine) (Heparin -) 5,000 unit SQ TID [facility] Last Admin: 03/04/19 06:45 Dose: 5,000 unit Insulin Aspart (Novolog Vial Sliding Scale -) 1 vial SQ ACHS [facility]; Protocol Last Admin: 03/04/19 06:45 Dose: 2 units Morphine Sulfate (Msir -) 30 mg PO Q4H PRN PRN Reason: PAIN LEVEL 6-10 Last Admin: 03/03/19 22:31 Dose: 30 mg Nystatin (Nystop Powder -) 1 applic TP BID [facility] Last Admin: 03/03/19 22:43 Dose: 1 applic Pantoprazole Sodium (Protonix -) 20 mg PO DAILY [facility] Last Admin: 03/03/19 12:26 Dose: 20 mg Prednisone (Deltasone -) 40 mg PO DAILY [facility] Last Admin: 03/03/19 12:26 Dose: 40 mg - Objective Vital Signs: Vital Signs Temperature 97.3 F L 03/04/19 05:00 Pulse Rate 81 03/04/19 05:00 Respiratory Rate 18 03/04/19 05:00 Blood Pressure 125/54 L 03/04/19 05:00 O2 Sat by Pulse Oximetry (%) 95 03/04/19 04:32 Constitutional: Yes: No Distress, Obese Eyes: Yes: WNL HENT: Yes: WNL Neck: Yes: Decreased ROM Cardiovascular: Yes: S1, S2, S4 Respiratory: Yes: Diminished, Tachypnea Gastrointestinal: Yes: Soft, Abdomen, Obese ...Rectal Exam: Yes: Deferred Genitourinary: No: Anuria Breast(s): Yes: WNL Musculoskeletal: Yes: Joint Stiffness, Joint Swelling, Muscle Weakness Extremities: Yes: Cool, Other (small, withered right hand since ) Edema: Yes Edema: LLE: Trace, RLE: Trace Peripheral Pulses WNL: Yes Integumentary: Yes: Venous Stasis Changes Neurological: Yes: Alert, Oriented, Weakness Psychiatric: Yes: Alert, Oriented Labs: CBC, BMP 03/01/19 05:53 03/04/19 05:55 INR, PTT INR 1.10 (0.83-1.09) H 02/19/19 21:07 - ....Imaging Other: Image Reviewed (telemetry: NSR) Problem List - Problems (1) Diastolic CHF Assessment/Plan: ECHO: extremely limited views: normal LVEF; mild LVH; normal LV size; no pericardial effusion; valves could not be assesses. CXR: biltarerl pleural effusions persist. On furosemide IV 40 mg bid. Consider restarting losartan (CHF; HTN; DM) if renal function improves; presently held due to hyperkalemia. Code(s): I50.30 - UNSPECIFIED DIASTOLIC (CONGESTIVE) HEART FAILURE Qualifiers: Heart failure chronicity: acute on chronic Qualified Code(s): I50.33 - Acute on chronic diastolic (congestive) heart failure (2) Sleep apnea Code(s): G47.30 - SLEEP APNEA, UNSPECIFIED (3) Anxiety and depression Code(s): F41.9 - ANXIETY DISORDER, UNSPECIFIED; F32.9 - MAJOR DEPRESSIVE DISORDER, SINGLE EPISODE, UNSPECIFIED (4) HTN (hypertension) Code(s): I10 - ESSENTIAL (PRIMARY) HYPERTENSION Qualifiers: Hypertension type: essential hypertension Qualified Code(s): I10 - Essential (primary) hypertension (5) Hyperlipidemia Code(s): E78.5 - HYPERLIPIDEMIA, UNSPECIFIED (6) Sacral decubitus ulcer, stage II Code(s): L89.152 - PRESSURE ULCER OF SACRAL REGION, STAGE 2 (7) Cough Code(s): R05 - COUGH (8) Hx of heart artery stent Code(s): Z95.5 - PRESENCE OF CORONARY ANGIOPLASTY IMPLANT AND GRAFT (9) [place] cardiac risk >20% in next 10 years Assessment/Plan: stress Persantine MIBI 01/2015: no ischemia On statin. Hx coronary stent ?prior to 2014. Morbid obesity remains a central cause of pt's high risk for cardiopulmonary events. Pt says she wants to "lose all this weight", and says speaking with a inspector floor sub assembly would be helpful. Code(s): Z91.89 - OTH PERSONAL RISK FACTORS, NOT ELSEWHERE CLASSIFIED (10) Respiratory failure Assessment/Plan: O2, bronchodilators, and steroids per perioperative manager. Code(s): J96.90 - RESPIRATORY FAILURE, UNSP, UNSP W HYPOXIA OR HYPERCAPNIA
[2019-03-04] MEDS: ALBUTEROL SO4 2.5/IPRATROPIUM 0.5 INH SOL 3 ML VIAL.NEB. NEB SCH ×2 (08:22→11:45)
--- NOTE | 2019-03-04 08:28 | PN ---
Progress Note, Physician Chief Complaint: Pt. A&Ox3; no chest pain or dyspnea. History of Present Illness: The patient is a 73 year old white female with a past medical history of morbid obesity, CAD s/p stents, HTN, HLD, COPD/?asthma, history of MRSA, sleep apnea, OA, diabetes, now here today for evaluation of cough. The patient reports that she has had a productive cough for the past few days. She also reports nausea, vomiting, and diarrhea but states that these have been chronic and intermittent. Patient notes chronic lower extremity edema but states that it is worse today. Patient denies headache, lightheadedness. Denies fever, chills. Denies chest pain, shortness of breath. Denies diarrhea. Allergies: metoprolol, metronidazole PCP: Vinicio Leahy - Current Medication List Current Medications: Active Medications Acetaminophen (Tylenol -) 650 mg PO Q6H PRN PRN Reason: PAIN LEVEL 1-5 Albuterol Sulfate (Ventolin 0.083% Nebulizer Soln -) 1 amp NEB Q4H PRN PRN Reason: SHORT OF BREATH/WHEEZING Albuterol/Ipratropium (Duoneb -) 1 amp NEB RQID [facility] Last Admin: 03/04/19 08:22 Dose: 1 amp Aspirin (Asa -) 81 mg PO DAILY [facility] Last Admin: 03/03/19 12:25 Dose: 81 mg Atorvastatin Calcium (Lipitor -) 20 mg PO HS [facility] Last Admin: 03/03/19 22:30 Dose: 20 mg Calcium Carbonate/Cholecalciferol (Os-Jorge 500+D -) 2 tab PO DAILY [facility] Last Admin: 03/03/19 12:25 Dose: 2 tab Clopidogrel Bisulfate (Plavix -) 75 mg PO DAILY [facility] Last Admin: 03/03/19 12:25 Dose: 75 mg Docusate Sodium (Colace Liquid -) 300 mg PO BID [facility] Last Admin: 03/03/19 22:30 Dose: 300 mg Furosemide (Lasix Injection -) 40 mg IVPUSH BID@0600,1400 [facility] Last Admin: 03/04/19 06:45 Dose: 40 mg Gabapentin (Neurontin -) 300 mg PO BID [facility] Last Admin: 03/03/19 22:30 Dose: 300 mg Guaifenesin (Robitussin -) 10 ml PO Q6H PRN PRN Reason: COUGH Heparin Sodium (Porcine) (Heparin -) 5,000 unit SQ TID [facility] Last Admin: 03/04/19 06:45 Dose: 5,000 unit Insulin Aspart (Novolog Vial Sliding Scale -) 1 vial SQ ACHS [facility]; Protocol Last Admin: 03/04/19 06:45 Dose: 2 units Morphine Sulfate (Msir -) 30 mg PO Q4H PRN PRN Reason: PAIN LEVEL 6-10 Last Admin: 03/03/19 22:31 Dose: 30 mg Nystatin (Nystop Powder -) 1 applic TP BID [facility] Last Admin: 03/03/19 22:43 Dose: 1 applic Pantoprazole Sodium (Protonix -) 20 mg PO DAILY [facility] Last Admin: 03/03/19 12:26 Dose: 20 mg Prednisone (Deltasone -) 40 mg PO DAILY [facility] Last Admin: 03/03/19 12:26 Dose: 40 mg - Objective Vital Signs: Vital Signs Temperature 97.3 F L 03/04/19 05:00 Pulse Rate 81 03/04/19 05:00 Respiratory Rate 18 03/04/19 05:00 Blood Pressure 125/54 L 03/04/19 05:00 O2 Sat by Pulse Oximetry (%) 95 03/04/19 04:32 Constitutional: Yes: No Distress Eyes: Yes: WNL HENT: Yes: WNL Neck: Yes: WNL Cardiovascular: Yes: S1, S2, S4 Respiratory: Yes: Regular, On Nasal O2. No: Wheezes Gastrointestinal: Yes: Soft, Abdomen, Obese ...Rectal Exam: Yes: Deferred Genitourinary: No: Anuria Breast(s): Yes: WNL Musculoskeletal: Yes: Muscle Weakness Extremities: Yes: Cool, Other Edema: Yes Edema: LLE: Trace, RLE: Trace Peripheral Pulses WNL: Yes Integumentary: Yes: Venous Stasis Changes Neurological: Yes: Alert, Oriented, Weakness Psychiatric: Yes: Alert, Oriented Labs: CBC, BMP 03/01/19 05:53 03/04/19 05:55 INR, PTT INR 1.10 (0.83-1.09) H 02/19/19 21:07 Problem List - Problems (1) Diastolic CHF Assessment/Plan: ECHO: extremely limited views: normal LVEF; mild LVH; normal LV size; no pericardial effusion; valves could not be assesses. CXR: biltarerl pleural effusions persist. On furosemide IV 40 mg bid. Consider restarting losartan (CHF; HTN; DM) if renal function improves; presently held due to hyperkalemia. Code(s): I50.30 - UNSPECIFIED DIASTOLIC (CONGESTIVE) HEART FAILURE Qualifiers: Heart failure chronicity: acute on chronic Qualified Code(s): I50.33 - Acute on chronic diastolic (congestive) heart failure (2) Sleep apnea Assessment/Plan: On nightly CPAP sleep studies,, if not done already, per pulmonary. Code(s): G47.30 - SLEEP APNEA, UNSPECIFIED (3) Anxiety and depression Code(s): F41.9 - ANXIETY DISORDER, UNSPECIFIED; F32.9 - MAJOR DEPRESSIVE DISORDER, SINGLE EPISODE, UNSPECIFIED (4) HTN (hypertension) Code(s): I10 - ESSENTIAL (PRIMARY) HYPERTENSION Qualifiers: Hypertension type: essential hypertension Qualified Code(s): I10 - Essential (primary) hypertension (5) Hyperlipidemia Assessment/Plan: Total cholesterol 116 mg/dL. On atorvastatin Code(s): E78.5 - HYPERLIPIDEMIA, UNSPECIFIED (6) Sacral decubitus ulcer, stage II Code(s): L89.152 - PRESSURE ULCER OF SACRAL REGION, STAGE 2 (7) Cough Code(s): R05 - COUGH (8) Hx of heart artery stent Assessment/Plan: On ASA and Plavix TNI < 0.02 Code(s): Z95.5 - PRESENCE OF CORONARY ANGIOPLASTY IMPLANT AND GRAFT (9) [place] cardiac risk >20% in next 10 years Assessment/Plan: stress Persantine MIBI 01/2015: no ischemia On statin. Hx coronary stent ?prior to 2014. Morbid obesity remains a central cause of pt's high risk for cardiopulmonary events. Pt says she wants to "lose all this weight", and says speaking with a electronic communications technician would be helpful. Code(s): Z91.89 - OTH PERSONAL RISK FACTORS, NOT ELSEWHERE CLASSIFIED (10) Respiratory failure Assessment/Plan: O2, bronchodilators, and steroids (now PO) per motor and generator assembler. Code(s): J96.90 - RESPIRATORY FAILURE, UNSP, UNSP W HYPOXIA OR HYPERCAPNIA (11) UTI (urinary tract infection) Assessment/Plan: completed antibiotic course Code(s): N39.0 - URINARY TRACT INFECTION, SITE NOT SPECIFIED
[2019-03-04 09:37] VITALS: BP 159/83; PULSE 78; TEMP 97.8
[2019-03-04] MEDS ORDERED: AMOXICILLIN 500 MG CAPSULE (FP) PO SCH (10:00)
--- NOTE | 2019-03-04 10:03 | DS ---
Physical Examination Vital Signs: Vital Signs Temperature 97.8 F 03/04/19 09:00 Pulse Rate 78 03/04/19 09:00 Respiratory Rate 22 H 03/04/19 09:00 Blood Pressure 159/83 03/04/19 09:00 O2 Sat by Pulse Oximetry (%) 95 03/04/19 04:32 Constitutional: Yes: No Distress, Calm, Obese Eyes: Yes: Conjunctiva Clear HENT: Yes: Normocephalic Neck: Yes: Trachea Midline Cardiovascular: Yes: Regular Rate and Rhythm Respiratory: Yes: CTA Bilaterally Gastrointestinal: Yes: Normal Bowel Sounds, Soft, Abdomen, Obese Musculoskeletal: Yes: Joint Stiffness, Muscle Weakness Extremities: Yes: Deformity (right arm) Integumentary: Yes: Other Neurological: Yes: WNL Psychiatric: Yes: WNL Labs: CBC, BMP 03/01/19 05:53 03/04/19 05:55 Discharge Summary Problems reviewed: Yes Reason For Visit: CONGESTIVE HEART FAILURE Current Active Problems Anxiety and depression (Acute) Bacteremia (Acute) CHF (congestive heart failure) (Acute) Chronic infection of prosthetic knee (Acute) Diastolic CHF (Acute) [place] cardiac risk >20% in next 10 years (Acute) Hx of heart artery stent (Acute) Hyperkalemia (Acute) Respiratory failure (Acute) Sleep apnea (Acute) UTI (urinary tract infection) (Acute) Hospital Course: 73 yo lady morbidly obese, h/o NIDDM, NIKHIL, CAD admitted for lethargy developed acute respiratory failure due to hypoventilation, NIKHIL-was mechanically ventilated for 3 days also was treated for UTI with iv ceftriaxone was in CKD-acute on chr. baseline creat~1.2-resolved now had staph coag neg. anaerobic bottlex1 on blood culture-contaminant acute CHF responded well to iv diuresis metabolic encephalopathy resolved after improved oxygenation she is stable to dc to STR and ultimately home counselled extensively to loose weight to avoid recurrent respiratory failure and other comorbidities switch to oral steroids with slow taper continue oral diuresis riss while on steroids she has been on oral amoxicillin 500 mg po bid to supress chronic right knee infection and intermittnet drainage from fistula-will continue it lifelong cont pt Plan of Treatment: slow steroid taper to dc Condition: Stable - Instructions Referrals: Vinicio Leahy MD [Primary Care Provider] - Disposition: [facility] FACILITY - Home Medications Comprehensive Discharge Medication List: Ambulatory Orders Aspirin [ASA -] 81 mg PO DAILY 10/05/13 Calcium 500Mg/Vit-D 200 Units [Os-Jorge 500+D -] 2 tab PO DAILY tab 01/24/18 Guaifenesin [Robitussin -] 10 ml PO Q6H PRN cup 04/19/18 Pantoprazole Sodium [Protonix -] 20 mg PO DAILY tablet.ec 04/19/18 Ammonium Lactate Lotion [Lac-Hydrin 12] 1 applic TP DAILY PRN #1 bottle Clopidogrel Bisulfate [Plavix -] 75 mg PO DAILY #30 tablet 05/26/18 Nystatin Powder [Nystop Powder -] 1 applic TP DAILY #1 bottle 05/26/18 Simvastatin [Zocor -] 40 mg PO HS #30 tablet 05/26/18 Albuterol 0.083% Nebulizer Carmen [Ventolin 0.083% Nebulizer Soln -] 1 amp NEB Q4H PRN amp 03/04/19 Albuterol 2.5/Ipratropium 0.5 [Duoneb -] 1 amp NEB RQID amp 03/04/19 Amoxicillin - [Amoxicillin 500mg Capsule -] 500 mg PO BID capsule 03/04/19 Docusate Liquid [Colace Liquid -] 300 mg PO BID ud 03/04/19 Furosemide [Lasix -] 40 mg PO BID #60 tablet 03/04/19 Gabapentin [Neurontin -] 300 mg PO BID capsule 03/04/19 Heparin - 5,000 unit SQ BID vial 03/04/19 Insulin Sliding Scale [Novolog Vial Sliding Scale -] 1 vial SQ ACHS units 03/04 Morphine *Immediate Release* [Msir -] 30 mg PO Q4H PRN #60 tab MDD 120mg predniSONE [Deltasone -] 40 mg PO DAILY tablet 03/04/19 Prescription Drug Monitoring Program (I-STOP) results: I-STOP not reviewed
[2019-03-04] MEDS: ASPIRIN 81 MG CHEWABLE TABLETS PO SCH (10:42)
[2019-03-04] MEDS: CALCIUM 500MG/VIT-D 200 UNITS COMBO TABLET (FP) PO SCH (10:42)
[2019-03-04] MEDS: PANTOPRAZOLE 20 MG TABLET (FP) PO SCH (10:42)
[2019-03-04] MEDS: NYSTATIN POWDER 100,000 UNITS/GM - 15 GM TOPICAL POWDER TP SCH (10:42)
[2019-03-04] MEDS: predniSONE 20 MG TABLET (UD) PO SCH (10:42)
[2019-03-04] MEDS: CLOPIDOGREL BISULFATE 75 MG TABLET (FP) PO SCH (10:43)
[2019-03-04] MEDS: GABAPENTIN 300 MG CAPSULE (FP) PO SCH (10:43)
[2019-03-04] MEDS: DOCUSATE NA 100 MG/10 ML UNIT-DOSE CUPS PO SCH (10:43)
[2019-03-04] MEDS: morphine SULFATE IMMEDIATE RELEASE 30 MG TAB PO PRN (10:49)
--- NOTE | 2019-03-04 10:57 | PN ---
Progress Note, Physician History of Present Illness: pulmonary alert,comfortable,-resp distress,[facility] - Current Medication List Current Medications: Active Medications Acetaminophen (Tylenol -) 650 mg PO Q6H PRN PRN Reason: PAIN LEVEL 1-5 Albuterol Sulfate (Ventolin 0.083% Nebulizer Soln -) 1 amp NEB Q4H PRN PRN Reason: SHORT OF BREATH/WHEEZING Albuterol/Ipratropium (Duoneb -) 1 amp NEB RQID [facility] Last Admin: 03/04/19 08:22 Dose: 1 amp Amoxicillin (Amoxicillin -) 500 mg PO BID [facility] Last Admin: 03/04/19 10:42 Dose: 500 mg Aspirin (Asa -) 81 mg PO DAILY [facility] Last Admin: 03/04/19 10:42 Dose: 81 mg Atorvastatin Calcium (Lipitor -) 20 mg PO HS [facility] Last Admin: 03/03/19 22:30 Dose: 20 mg Calcium Carbonate/Cholecalciferol (Os-Jorge 500+D -) 2 tab PO DAILY [facility] Last Admin: 03/04/19 10:42 Dose: 2 tab Clopidogrel Bisulfate (Plavix -) 75 mg PO DAILY [facility] Last Admin: 03/04/19 10:43 Dose: 75 mg Docusate Sodium (Colace Liquid -) 300 mg PO BID [facility] Last Admin: 03/04/19 10:43 Dose: Not Given Furosemide (Lasix Injection -) 40 mg IVPUSH BID@0600,1400 [facility] Last Admin: 03/04/19 06:45 Dose: 40 mg Gabapentin (Neurontin -) 300 mg PO BID [facility] Last Admin: 03/04/19 10:43 Dose: 300 mg Guaifenesin (Robitussin -) 10 ml PO Q6H PRN PRN Reason: COUGH Heparin Sodium (Porcine) (Heparin -) 5,000 unit SQ TID [facility] Last Admin: 03/04/19 06:45 Dose: 5,000 unit Insulin Aspart (Novolog Vial Sliding Scale -) 1 vial SQ ACHS [facility]; Protocol Last Admin: 03/04/19 06:45 Dose: 2 units Morphine Sulfate (Msir -) 30 mg PO Q4H PRN PRN Reason: PAIN LEVEL 6-10 Last Admin: 03/04/19 10:49 Dose: 30 mg Nystatin (Nystop Powder -) 1 applic TP BID [facility] Last Admin: 03/04/19 10:42 Dose: 1 applic Pantoprazole Sodium (Protonix -) 20 mg PO DAILY [facility] Last Admin: 03/04/19 10:42 Dose: 20 mg Prednisone (Deltasone -) 40 mg PO DAILY [facility] Last Admin: 03/04/19 10:42 Dose: 40 mg - Objective Vital Signs: Vital Signs Temperature 97.8 F 03/04/19 09:00 Pulse Rate 78 03/04/19 09:00 Respiratory Rate 22 H 03/04/19 09:00 Blood Pressure 159/83 03/04/19 09:00 O2 Sat by Pulse Oximetry (%) 95 03/04/19 04:32 Constitutional: Yes: Calm, Obese Eyes: Yes: WNL HENT: Yes: WNL Neck: Yes: WNL Cardiovascular: Yes: Regular Rate and Rhythm, S1, S2 Respiratory: Yes: Diminished Gastrointestinal: Yes: Normal Bowel Sounds, Soft Extremities: Yes: WNL Edema: Yes Labs: CBC, BMP 03/04/19 05:55 INR, PTT INR 1.10 (0.83-1.09) H 02/19/19 21:07 Problem List - Problems (1) Acute respiratory failure Code(s): J96.00 - ACUTE RESPIRATORY FAILURE, UNSP W HYPOXIA OR HYPERCAPNIA Qualifiers: Respiratory failure complication: hypoxia and hypercapnia Qualified Code(s) : J96.01 - Acute respiratory failure with hypoxia; J96.02 - Acute respiratory failure with hypercapnia (2) CHF (congestive heart failure) Code(s): I50.9 - HEART FAILURE, UNSPECIFIED Qualifiers: Heart failure type: unspecified Heart failure chronicity: unspecified Qualified Code(s): I50.9 - Heart failure, unspecified (3) Hx of heart artery stent Code(s): Z95.5 - PRESENCE OF CORONARY ANGIOPLASTY IMPLANT AND GRAFT (4) Acute respiratory failure with hypoxia and hypercapnia Code(s): J96.01 - ACUTE RESPIRATORY FAILURE WITH HYPOXIA; J96.02 - ACUTE RESPIRATORY FAILURE WITH HYPERCAPNIA (5) [id number] kidney injury Code(s): N17.9 - ACUTE KIDNEY FAILURE, UNSPECIFIED; N18.9 - CHRONIC KIDNEY DISEASE, UNSPECIFIED (6) CAD (coronary artery disease) Code(s): I25.10 - ATHSCL HEART DISEASE OF [place] CORONARY ARTERY W/O ANG PCTRS Qualifiers: Coronary Disease-Associated Artery/Lesion type: [place] artery Associated angina: without angina (7) COPD exacerbation Code(s): J44.1 - CHRONIC OBSTRUCTIVE PULMONARY DISEASE W (ACUTE) EXACERBATION (8) Diabetes mellitus Code(s): E11.9 - TYPE 2 DIABETES MELLITUS WITHOUT COMPLICATIONS Qualifiers: Diabetes mellitus type: type 2 Diabetes mellitus usp insulin use: with long chain beamer use Diabetes mellitus complication status: without complication Qualified Code(s): E11.9 - Type 2 diabetes mellitus without complications; Z79.4 - chinese teacher (current) use of insulin Assessment/Plan ASSESSMENT AND PLAN: Acute Hypoxic and Hypercapneic Respiratory Failure improved Acute COPD Exacerbation improved Acute on Chronic Diastolic Heart Failure improved UTI r/o Pneumonia CAD DM Morbid Obesity Likely Obstructive Sleep Apnea - antibiotics po - lasix - Prednisone - inhaled bronchodilators - O2 to keep SpO2 >90% - DVT/GI prophylaxis Problem List - Problems (1) COPD exacerbation Code(s): J44.1 - CHRONIC OBSTRUCTIVE PULMONARY DISEASE W (ACUTE) EXACERBATION DR PIERSON
--- NOTE | 2019-03-04 13:03 | PN ---
Progress Note (short form) - Note Progress Note: Chief Complaint: Events noted, notes reviewed, dyspnea persists but improving, denies any chest pain, paroxysmal atrial fibrillation persists with periods of rapid ventricular response/but improved rate control History of Present Illness: Seen and examined on telemetry. Events noted, notes reviewed, dyspnea persists but improving, denies any chest pain, paroxysmal atrial fibrillation persists with periods of rapid ventricular response/but improved rate control Medications: Current Medications Albuterol/Ipratropium (Duoneb -) 1 amp NEB Q4H PRN PRN Reason: SHORTNESS OF BREATH Atorvastatin Calcium (Lipitor -) 20 mg PO HS [facility] Last Admin: 03/03/19 21:32 Dose: 20 mg Clopidogrel Bisulfate (Plavix -) 75 mg PO DAILY [facility] Last Admin: 03/04/19 09:41 Dose: 75 mg Diltiazem HCl (Cardizem Cd -) 240 mg PO DAILY [facility] Last Admin: 03/04/19 09:41 Dose: 240 mg Eplerenone (Eplerenone) 25 mg PO DAILY@0800 [facility] Last Admin: 03/04/19 09:41 Dose: 25 mg Losartan Potassium (Cozaar -) 25 mg PO DAILY [facility] Last Admin: 03/04/19 09:41 Dose: 25 mg Pantoprazole Sodium (Protonix -) 40 mg PO BID [facility] Last Admin: 03/04/19 09:41 Dose: 40 mg Rivaroxaban (Xarelto) 20 mg PO [facility] Last Admin: 03/03/19 21:32 Dose: 20 mg Sotalol HCl (Betapace -) 80 mg PO BID [facility] Last Admin: 03/04/19 09:41 Dose: 80 mg Review of Systems - Review of Systems Constitutional: no symptoms reported Respiratory: reports Cough denies Sputum Production Cardiovascular: as noted above Gastrointestinal: denies Nausea, Vomiting, Diarrhea, Constipation or Abdominal Pain Genitourinary: no symptoms reported Musculoskeletal: no symptoms reported Endocrine: no symptoms reported Vital Signs: Last Vital Signs Temp Pulse Resp BP Pulse Ox 97.7 F 96 H 20 105/66 93 L 03/04/19 08:58 03/04/19 08:58 03/04/19 08:58 03/04/19 08:58 03/04/19 09:00 Intake & Output 03/01/19 03/02/19 03/03/19 03/04/19 23:59 23:59 23:59 23:59 Intake Total 810 700 430 Output Total 3150 1750 Balance -2340 -1050 430 Weight 191 lb 3.2 oz 188 lb 188 lb 4 oz Neck: Supple Negative JVD Respiratory: Bilateral Scattered Rhonchi Diminished Breath Sounds at the Bases Cardiovascular: S1 S2 Irregularly Irregular Gastrointestinal: Soft Benign Normal Bowel Sounds Ext: Trace Edema Labs: CBC, BMP 03/04/19 05:40 03/04/19 05:40 INR, PTT INR 2.18 (0.83-1.09) H 02/28/19 06:40 Assessment/Plan ASSESSMENT: 1. Recurrent paroxysmal atrial fibrillation [id number] score of 6 on chronic A/ C with Xarelto, post failed cardioversion on antiarrhythmic therapy 2. CAD post WI/PCI/stent angina pectoris 3. Diastolic LV dysfunction with acute on chronic class I NYHA classification LV failure, clinically resolving 4. HTN/HCVD 5. DM 6. Hypercholesterolemia 7. History of subclavian artery stenting 8. COPD with acute exacerbation 9. Obstructive sleep apnea 10. CKD PLAN: 1. Continue Sotolol with caution and close monitoring of QTc interval 2. Continue Cardizem CD and administer at 180 mg twice daily 3. Continue Cozaar with caution and close monitoring of renal function 4. Continue Xarelto and Plavix with caution 5. Continue Lipitor 6. Continue Eplerenone with caution and close monitoring of renal function 7. Emphasized to the patient importance of cpap compliance for maintenance of SR 8. Bronchodilators as per the primary team 9. Additional cardiovascular evaluation as outpatient including MPI study 10. If arrhythmia/PAF persists plan to proceed with outpatient referral for PVI- RFA as outlined Ny Berrios M.D. PLAN:
== END 2019-03-04 12:26 | DRG 291 ==
LOC: JER 19:22 → JERBED 23:16 → J7W 02-20 03:11 → J4S 02-23 16:19 → J2W 02-23 16:40 → JICU 02-24 02:40 → J4W 03-01 12:25
PROVIDERS: ADMIT Internal Medicine; ATTEND Internal Medicine
PROC: 5A1945Z Respiratory Ventilation, 24-96 Consecutive Hours (ICD-10-PCS; principal; 2019-02-24)
PROC: 0BH17EZ Insertion of Endotracheal Airway into Trachea, Via Natural or Artificial Opening (ICD-10-PCS; 2019-02-24)
DX: I13.0 Hypertensive heart and chronic kidney disease with heart failure and stage 1 through stage 4 chronic kidney disease, or unspecified chronic kidney disease (principal); I50.33 Acute on chronic diastolic (congestive) heart failure; G92 Toxic encephalopathy; J96.02 Acute respiratory failure with hypercapnia; J96.01 Acute respiratory failure with hypoxia; J44.1 Chronic obstructive pulmonary disease with (acute) exacerbation; N17.9 Acute kidney failure, unspecified; Z68.44 Body mass index [BMI] 60.0-69.9, adult; N39.0 Urinary tract infection, site not specified; E87.2 Acidosis; E66.01 Morbid (severe) obesity due to excess calories; E11.9 Type 2 diabetes mellitus without complications; I25.10 Atherosclerotic heart disease of native coronary artery without angina pectoris; L89.152 Pressure ulcer of sacral region, stage 2; F41.8 Other specified anxiety disorders; E87.5 Hyperkalemia; G47.33 Obstructive sleep apnea (adult) (pediatric); E78.5 Hyperlipidemia, unspecified; Z98.61 Coronary angioplasty status; D72.829 Elevated white blood cell count, unspecified; B96.20 Unspecified Escherichia coli [E. coli] as the cause of diseases classified elsewhere; N18.9 Chronic kidney disease, unspecified; K21.9 Gastro-esophageal reflux disease without esophagitis; K59.00 Constipation, unspecified
CPT/HCPCS: 31500; 36415; 36600; 71045-TC-FY; 76775-TC; 80048; 80051; 80053; 80061; 81003; 82550; 82565; 82803; 82962; 83036; 83721; 83735; 83880; 84100; 84443; 84484; 85025; 85027; 85610; 85730; 87040; 87086; 87186; 87804; 93005; 93010; 93306-TC; 94002; 94640; 94660; 97116-GP; 99285-25; J1644; J7030

== ENCOUNTER 2019-03-08 07:44 | Emergency (ER) | payer OTHER ==
--- NOTE | 2019-03-08 08:05 | PDOC ---
History of Present Illness - General Stated Complaint: SOB Time Seen by Provider: 03/08/19 08:05 - History of Present Illness Initial Comments: HPI: 73F cough x 1 week clear lungs scattered eccyhmosies on limbs contracted RUE 3+ bilateral edema with venous stasis changes 03/08/19 08:05 víctor [phone] Discussed case with Nurse Jaci labored breathing bp high 140/90 (was 164/98 over the night) appeared sob oxygen saturation was normal, 97% prednisone 40mg on morphine 30mg last night full code duonebs qid antibiotics amoxicillin 03/08/19 08:24 CBC WBC 13.2 K/mm3 (4.0-10.0) H 03/08/19 08:54 RBC 4.18 M/mm3 (3.60-5.2) 03/08/19 08:54 Hgb 12.0 GM/dL (10.7-15.3) 03/08/19 08:54 Hct 37.3 % (32.4-45.2) 03/08/19 08:54 MCV 89.1 fl (80-96) 03/08/19 08:54 MCH 28.6 pg (25.7-33.7) 03/08/19 08:54 MCHC 32.1 g/dl (32.0-36.0) 03/08/19 08:54 RDW 17.6 % (11.6-15.6) H 03/08/19 08:54 Plt Count 216 K/MM3 (134-434) D 03/08/19 08:54 MPV 9.5 fl (7.5-11.1) 03/08/19 08:54 Absolute Neuts (auto) 10.8 K/mm3 (1.5-8.0) H 03/08/19 08:54 Neutrophils % 81.7 % (42.8-82.8) 03/08/19 08:54 Lymphocytes % 9.4 % (8-40) D 03/08/19 08:54 Monocytes % 5.0 % (3.8-10.2) 03/08/19 08:54 Eosinophils % 3.1 % (0-4.5) D 03/08/19 08:54 Basophils % 0.8 % (0-2.0) 03/08/19 08:54 Nucleated RBC % 0 % (0-0) 03/08/19 08:54 Mild leukocytosis CMP Sodium 142 mmol/L (136-145) 03/08/19 08:54 Potassium 3.9 mmol/L (3.5-5.1) 03/08/19 08:54 Chloride 99 mmol/L (98-107) 03/08/19 08:54 Carbon Dioxide 38 mmol/L (21-32) H 03/08/19 08:54 Anion Gap 5 MMOL/L (8-16) L 03/08/19 08:54 BUN 68.7 mg/dL (7-18) H 03/08/19 08:54 Creatinine 1.3 mg/dL (0.55-1.3) 03/08/19 08:54 Est GFR (CKD-EPI)AfAm 47.46 03/08/19 08:54 Est GFR (CKD-EPI)NonAf 40.95 03/08/19 08:54 Random Glucose 170 mg/dL (74-106) H 03/08/19 08:54 Calcium 8.7 mg/dL (8.5-10.1) 03/08/19 08:54 Total Bilirubin 0.9 mg/dL (0.2-1) 03/08/19 08:54 AST 8 U/L (15-37) L 03/08/19 08:54 ALT 22 U/L (13-61) 03/08/19 08:54 Alkaline Phosphatase 87 U/L (45-117) 03/08/19 08:54 Troponin I < 0.02 ng/ml (0.00-0.05) 03/08/19 08:54 B-Natriuretic Peptide 2611.8 pg/ml (5-125) H 03/08/19 08:54 Total Protein 5.6 g/dl (6.4-8.2) L 03/08/19 08:54 Albumin 2.7 g/dl (3.4-5.0) L 03/08/19 08:54 Electrolytes unremarkabl Tpn undetectable BNP elevated Discussed case with Nurse Beatty regarding patient's return to [facility] 03/08/19 12:04 Past History - Past Medical History Allergies/Adverse Reactions: Allergies Allergy/AdvReac Type Severity Reaction Status Date / Time metoprolol Allergy Verified 03/08/19 08:17 metronidazole Allergy Verified 03/08/19 08:17 Home Medications: Ambulatory Orders Aspirin [ASA -] 81 mg PO DAILY 10/05/13 Calcium 500Mg/Vit-D 200 Units [Os-Jorge 500+D -] 2 tab PO DAILY tab 01/24/18 Guaifenesin [Robitussin -] 10 ml PO Q6H PRN cup 04/19/18 Pantoprazole Sodium [Protonix -] 20 mg PO DAILY tablet.ec 04/19/18 Ammonium Lactate Lotion [Lac-Hydrin 12] 1 applic TP DAILY PRN #1 bottle Clopidogrel Bisulfate [Plavix -] 75 mg PO DAILY #30 tablet 05/26/18 Nystatin Powder [Nystop Powder -] 1 applic TP DAILY #1 bottle 05/26/18 Simvastatin [Zocor -] 40 mg PO HS #30 tablet 05/26/18 Albuterol 0.083% Nebulizer Carmen [Ventolin 0.083% Nebulizer Soln -] 1 amp NEB Q4H PRN amp 03/04/19 Albuterol 2.5/Ipratropium 0.5 [Duoneb -] 1 amp NEB RQID amp 03/04/19 Amoxicillin - [Amoxicillin 500mg Capsule -] 500 mg PO BID capsule 03/04/19 Docusate Liquid [Colace Liquid -] 300 mg PO BID ud 03/04/19 Furosemide [Lasix -] 40 mg PO BID #60 tablet 03/04/19 Gabapentin [Neurontin -] 300 mg PO BID capsule 03/04/19 Heparin - 5,000 unit SQ BID vial 03/04/19 Insulin Sliding Scale [Novolog Vial Sliding Scale -] 1 vial SQ ACHS units 03/04 Morphine *Immediate Release* [Msir -] 30 mg PO Q4H PRN #60 tab MDD 120mg predniSONE [Deltasone -] 40 mg PO DAILY tablet 03/04/19 Anemia: No Asthma: No Cancer: Yes (Uterine Cancer) Cardiac Disorders: Yes (CARDIAC STENT X2) CVA: No COPD: No CHF: No Dementia: No Diabetes: Yes GI Disorders: No Disorders: No HTN: Yes Hypercholesterolemia: Yes Liver Disease: No Seizures: No Thyroid Disease: No - Surgical History Abdominal Surgery: No Appendectomy: No Cardiac Surgery: Yes (STENTS 5 yrs ago) Cholecystectomy: Yes Lung Surgery: No Neurologic Surgery: No Orthopedic Surgery: Yes (knee replacement 2005 - knee surgeries following that ) - Immunization History Immunization Up to Date: Yes - Psycho Social/Smoking Cessation Hx Smoking Status: No Smoking History: Never smoked Have you smoked in the past 12 months: No Number of Cigarettes Smoked Daily: 0 If you are a former smoker, when did you quit?: 15 years ago Cigars Per Day: 0 'Breaking Loose' booklet given: 03/15/14 Hx Alcohol Use: No Drug/Substance Use Hx: No Substance Use Type: None Hx Substance Use Treatment: No ED Treatment Course - LABORATORY CBC & Chemistry Diagram: 03/08/19 08:54 03/08/19 08:54 Discharge - Discharge Information Problems reviewed: Yes Clinical Impression/Diagnosis: Hypercarbia Condition: Improved Disposition: HOME - Follow up/Referral Referrals: Vinicio Leahy MD [Primary Care Provider] - - Patient Discharge Instructions Patient Printed Discharge Instructions: DI for Continuous Positive Airway Pressure Additional Instructions: You came into the emergency department. Lab work showed that you were retaining carbon dioxide which is likely due to not being on CPAP at night., Xray, and EKG did not indicate acute pathology. YOU MUST SLEEP WITH CPAP EVERY NIGHT. Continue taking home medications as prescribed by your physician. Follow up with your primary care physician within 72 hours. Call and make an appointment to further evaluate your symptoms. Your workup is not complete until you do so. Immediate medical attention is required if you have: any chest pain, palpitations, shortness of breath, severe headaches, changes in vision, episodes of fainting, focal numbness or weakness, any severe abdominal pain, any black tarry stool, or any new or concerning symptoms. If you think you are having an emergency, call for emergency medical services or present to the emergency department right away. - Post Discharge Activity
[2019-03-08 09:08] VITALS: BMI 60.4
[2019-03-08 09:13] LABS: BASO % 0.8 % (0-2.0); EOS % 3.1 % (0-4.5); HEMATOCRIT 37.3 % (32.4-45.2); LYMPH % 9.4 % (8-40); MCH 28.6 pg (25.7-33.7); MCHC 32.1 g/dl (32.0-36.0); MEAN CELL VOLUME 89.1 fl (80-96); MEAN PLT VOLUME 9.5 fl (7.5-11.1); NEUT % 81.7 % (42.8-82.8); PLATELET COUNT 216 K/MM3 (134-434); RBC 4.18 M/mm3 (3.60-5.2); RDW 17.6 % (11.6-15.6); WHITE BLOOD COUNT 13.2 K/mm3 (4.0-10.0)
[2019-03-08 09:18] LABS: VENOUS PO2 < 49 mmHg (28-48)
[2019-03-08 09:19] LABS: VENOUS PC02 78.8 mmHg (38-52)
[2019-03-08 09:36] LABS: ALBUMIN 2.7 g/dl (3.4-5.0); BILIRUBIN,TOTAL 0.9 mg/dL (0.2-1); BLOOD UREA NITROGEN 68.7 mg/dL (7-18); CALCIUM 8.7 mg/dL (8.5-10.1); CREATININE 1.3 mg/dL (0.55-1.3); N-TERMINAL BNP 2611.8 pg/ml (5-125); POTASSIUM 3.9 mmol/L (3.5-5.1); TOT PROT 5.6 g/dl (6.4-8.2)
[2019-03-08 09:50] LABS: INR 0.9 (0.83-1.09); PROTHROMBIN TIME (PATIENT) 10.6 SEC (9.7-13.0)
[2019-03-08 11:13] LABS: ARTERIAL BLD GAS O2 SATURATION 93.2 % (95-98); ARTERIAL BLOOD GAS BASE EXCESS 8.3 meq/l (-2-2); ARTERIAL BLOOD GAS PO2 68.2 mmHg (80-100); ARTERIAL BLOOD GAS pH 7.43 (7.35-7.45); CARBOXYHEMOGLOBIN 1.5 % (0-2)
--- NOTE | 2019-03-08 11:16 | PDOC ---
Documentation entered by Hailey Macias SCRIBE, acting as scribe for Ailyn Mancuso MD. Ailyn Mancuso MD: This documentation has been prepared by the scribe, Hailey Macias SCRIBE, under my direction and personally reviewed by me in its entirety. I confirm that the documentation accurately reflects all work, treatment, procedures, and medical decision making performed by me. Attending Attestation - Resident Resident Name: Iris Tineo - HPI HPI: 03/08/19 09:43 The patient is a 73 year old female with a past medical history significant for Sleep apnea, DM, HTN and HLD who presents to the emergency department via EMS for shortness of breath and altered mental status. The patient was noted to be typenic while sleeping by the halfway staff. When the patient woke up, she was noted to be altered. The patient was sent to the ER for further management. Patient denies any complaint. - Physicial Exam PE: 03/08/19 10:40 GENERAL: Awake, alert, and fully oriented, in no acute distress LUNGS: Breath sounds equal, clear to auscultation bilaterally. HEART: Regular rate and rhythm, normal S1 and S2, no murmurs, rubs or gallops ABDOMEN: +morbidly obese, nontender. EXTREMITIES: +erythema and scaling from the knees to the ankle, chronic as per patient. NEUROLOGICAL: Alert, oriented, cranial nerves grossly intact. - Medical Decision Making 03/08/19 11:04 pt presents to the Ed after sent in from [place] for altered mental status. patient is alert and oriented x 3 in the ED. She reports that she was not given her C pap that she uses for sleep apnea. Labs show elevated CO2 on VBG. Will place on BIPAP and recheck PCO2. 03/08/19 11:14
[2019-03-08 13:41] VITALS: BP 127/84; PULSE 82; TEMP 98.1
--- NOTE | 2019-03-09 11:52 | EKG ---
Test Reason : Blood Pressure : / mmHG Vent. Rate : 059 BPM Atrial Rate : 059 BPM P-R Int : 190 ms QRS Dur : 068 ms QT Int : 392 ms P-R-T Axes : 059 037 052 degrees QTc Int : 388 ms SINUS BRADYCARDIA SEPTAL INFARCT (CITED ON OR BEFORE 29-MAR-2018) ABNORMAL ECG WHEN COMPARED WITH ECG OF 19-FEB-2019 22:05, ST NOW DEPRESSED IN ANTERIOR LEADS NONSPECIFIC T WAVE ABNORMALITY NOW EVIDENT IN ANTERIOR LEADS Confirmed by IVELISSE CARRASCO MD ([id number]) on 03/09/2019 11:52:03 AM Referred By: Confirmed By:IVELISSE CARRASCO MD
== END 2019-03-08 13:35 | disposition home or self-care (01) ==
LOC: JER 07:44
DX: R06.89 Other abnormalities of breathing (principal); E78.00 Pure hypercholesterolemia, unspecified; I10 Essential (primary) hypertension; E11.9 Type 2 diabetes mellitus without complications; Z95.5 Presence of coronary angioplasty implant and graft
CPT/HCPCS: 36415; 36600; 71045-TC-FY; 80053; 82375; 82803; 83050; 83880; 84484; 85025; 85610; 93005; 93010; 99284-25

== ENCOUNTER 2019-04-14 17:43 | Inpatient (IN) | payer OTHER ==
--- NOTE | 2019-04-14 18:33 | PDOC ---
History of Present Illness - General Chief Complaint: Seizure Stated Complaint: SEIZURE Time Seen by Provider: 04/14/19 18:32 - History of Present Illness Initial Comments: 04/14/19 18:33 HPI: 73 y/o F with hx of DM, asthma, morbid obesity, NIKHIL on CPAP at night, CAD s/p stents sent by [facility] for evaluation of left arm tremors that started today. She states she didnt get any sleep last night and was not using her CPAP. This morning when she got up, she noted to have new left arm tremor with intention and at rest. She denies fever, chills, chest pain, SOB, numbness , tingling, weakness, confusion, abd pain, n/v, head trauma, syncope. Family at bedside states she has been sleepy all day and sleeping during conversation. PMHx: as noted above ROS: as noted SHx: Denies tobacco use; no alcohol use; no rec drugs Allergies: NKDA ROS: GENERAL/CONSTITUTIONAL: No fever or chills. No weakness. HEAD, EYES, EARS, NOSE AND THROAT: No change in vision. No ear pain or discharge. No sore throat. CARDIOVASCULAR: No chest pain or shortness of breath RESPIRATORY: No cough, wheezing, or hemoptysis. GASTROINTESTINAL: No nausea, vomiting, diarrhea or constipation. GENITOURINARY: No dysuria, frequency, or change in urination. MUSCULOSKELETAL: No joint or muscle swelling or pain. No neck or back pain. SKIN: No rash NEUROLOGIC: No headache, vertigo, loss of consciousness, or change in strength/ sensation. ENDOCRINE: No increased thirst. No abnormal weight change HEMATOLOGIC/LYMPHATIC: No anemia, easy bleeding, or history of blood clots. ALLERGIC/IMMUNOLOGIC: No hives or skin allergy. PE: GENERAL: awake and fully oriented with intermittently falling asleep during exam HEAD: No signs of trauma, normocephalic, atraumatic EYES: EOMI, sclera anicteric, conjunctiva clear ENT: Auricles normal inspection, hearing grossly normal, nares patent, oropharynx clear without exudates. Moist mucosa NECK: Normal ROM, no lymphadenopathy LUNGS: No increased work of breathing, symmetrical chest rise, clear to auscultation bilaterally, no wheezes, crackles or rhonchi HEART: Regular rate, regular rhythm, normal S1 and S2, no murmur, peripheral pulses 2+ and equal bilaterally. ABDOMEN: morbid obesity, soft, nondistended, nontender, normoactive bowel sounds. No guarding, no rebound. No masses. 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, BL LE with lymph edema skin changes NEUROLOGICAL: limited by patient participation and falling asleep during exam, left arm with sporadic tremor on intention SKIN: Warm, Dry, normal turgor, no rashes or lesions noted Past History - Past Medical History Allergies/Adverse Reactions: Allergies Allergy/AdvReac Type Severity Reaction Status Date / Time metoprolol Allergy Verified 04/14/19 18:04 metronidazole Allergy Verified 04/14/19 18:04 Home Medications: Ambulatory Orders Aspirin [ASA -] 81 mg PO DAILY 10/05/13 Calcium 500Mg/Vit-D 200 Units [Os-Jorge 500+D -] 2 tab PO DAILY tab 01/24/18 Guaifenesin [Robitussin -] 10 ml PO Q6H PRN cup 04/19/18 Pantoprazole Sodium [Protonix -] 20 mg PO DAILY tablet.ec 04/19/18 Ammonium Lactate Lotion [Lac-Hydrin 12] 1 applic TP DAILY PRN #1 bottle Clopidogrel Bisulfate [Plavix -] 75 mg PO DAILY #30 tablet 05/26/18 Nystatin Powder [Nystop Powder -] 1 applic TP DAILY #1 bottle 05/26/18 Simvastatin [Zocor -] 40 mg PO HS #30 tablet 05/26/18 Albuterol 0.083% Nebulizer Carmen [Ventolin 0.083% Nebulizer Soln -] 1 amp NEB Q4H PRN amp 03/04/19 Albuterol 2.5/Ipratropium 0.5 [Duoneb -] 1 amp NEB RQID amp 03/04/19 Amoxicillin - [Amoxicillin 500mg Capsule -] 500 mg PO BID capsule 03/04/19 Docusate Liquid [Colace Liquid -] 300 mg PO BID ud 03/04/19 Furosemide [Lasix -] 40 mg PO BID #60 tablet 03/04/19 Gabapentin [Neurontin -] 300 mg PO BID capsule 03/04/19 Heparin - 5,000 unit SQ BID vial 03/04/19 Insulin Sliding Scale [Novolog Vial Sliding Scale -] 1 vial SQ ACHS units 03/04 Morphine *Immediate Release* [Msir -] 30 mg PO Q4H PRN #60 tab MDD 120mg predniSONE [Deltasone -] 40 mg PO DAILY tablet 03/04/19 Anemia: No Asthma: No Cancer: Yes (Uterine Cancer) Cardiac Disorders: Yes (CARDIAC STENT X2) CVA: No COPD: No CHF: No Dementia: No Diabetes: Yes GI Disorders: No Disorders: No HTN: Yes Hypercholesterolemia: Yes Liver Disease: No Seizures: No Thyroid Disease: No - Surgical History Abdominal Surgery: No Appendectomy: No Cardiac Surgery: Yes (STENTS 5 yrs ago) Cholecystectomy: Yes Lung Surgery: No Neurologic Surgery: No Orthopedic Surgery: Yes (knee replacement 2005 - knee surgeries following that ) - Immunization History Immunization Up to Date: Yes - Psycho Social/Smoking Cessation Hx Smoking Status: No Smoking History: Never smoked Have you smoked in the past 12 months: No Number of Cigarettes Smoked Daily: 0 If you are a former smoker, when did you quit?: 15 years ago Cigars Per Day: 0 'Breaking Loose' booklet given: 03/15/14 Hx Alcohol Use: No Drug/Substance Use Hx: No Substance Use Type: None Hx Substance Use Treatment: No *Physical Exam - Vital Signs Last Vital Signs Temp Pulse Resp BP Pulse Ox 97.9 F 69 18 120/57 L 100 04/14/19 18:00 04/14/19 18:00 04/14/19 18:00 04/14/19 18:00 04/14/19 18:00 ED Treatment Course - LABORATORY CBC & Chemistry Diagram: 04/14/19 19:20 04/14/19 19:20 Medical Decision Making - Medical Decision Making 04/14/19 19:52 73 y/o F with hx of DM, asthma, morbid obesity, NIKHIL on CPAP at night, CAD s/p stents sent by [facility] for evaluation of left arm tremors that started today after a night of inability to sleep and no CPAP use. VSS, AF. PE with morbid obesity, falling asleep during exam. Will workup for intracranial, infectious, cardiac, electrolyte, respiratory etiologies -cbc, cmp, coags, cardiac, abg, ua, ekg, cxr, ct head 04/14/19 20:50 CT head with no acute pathology 04/14/19 20:50 Laboratory Tests 04/14/19 04/14/19 19:20 19:20 WBC 12.2 H Creatinine 2.2 H AST 318 H ALT 304 H Alkaline Phosphatase 400 H elevated WBC which is baseline SANGITA; will give 500cc elevated transminases consulted Dr khan for concern for new onset seizure; will see patient tomorrow and workup will admit for new onset seizure, sangita, elevated transminases Discharge - Discharge Information Problems reviewed: Yes Clinical Impression/Diagnosis: SANGITA (acute kidney injury), Elevated transaminase level, Partial seizure - Admission Yes - Follow up/Referral Referrals: Vinicio Leahy MD [Primary Care Provider] - - Patient Discharge Instructions - Post Discharge Activity
--- NOTE | 2019-04-14 18:44 | PDOC ---
Attending Attestation - Resident Resident Name: Deepa Garcia - ED Attending Attestation I have performed the following: I have examined & evaluated the patient, The case was reviewed & discussed with the resident, I agree w/resident's findings & plan - HPI HPI: 04/14/19 20:48 see resident hpi - Physicial Exam PE: 04/14/19 20:48 see resident exam - Medical Decision Making 04/14/19 20:48 73-year-old female currently in rehab with history of morbid obesity complaining of waking up with intention tremor to the left upper extremity CT scan of the brain showed no acute abnormality Patient is otherwise at baseline, tremor disappears at rest Due to focality Case discussed with neurology, patient will be admitted for further evaluation Coincidentally patient did have an elevation of her liver panel, she has no fever, no vomiting and no abdominal tenderness or pain We will discussed with admitting team
[2019-04-14 19:52] LABS: BASO % 0.6 % (0-2.0); EOS % 0.1 % (0-4.5); HEMATOCRIT 30.9 % (32.4-45.2); HEMOGLOBIN 10.1 GM/dL (10.7-15.3); LYMPH % 3.6 % (8-40); MCH 29.7 pg (25.7-33.7); MCHC 32.7 g/dl (32.0-36.0); MEAN CELL VOLUME 90.7 fl (80-96); MEAN PLT VOLUME 9.5 fl (7.5-11.1); MONO % 3.2 % (3.8-10.2); NEUT % 92.5 % (42.8-82.8); PLATELET COUNT 151 K/MM3 (134-434); RDW 16.4 % (11.6-15.6); WHITE BLOOD COUNT 12.2 K/mm3 (4.0-10.0)
[2019-04-14 20:11] LABS: INR 1.02 (0.83-1.09)
[2019-04-14 20:17] LABS: ARTERIAL BLD GAS O2 SATURATION 97.1 % (95-98); ARTERIAL BLOOD GAS BASE EXCESS 4.9 meq/l (-2-2); ARTERIAL BLOOD GAS PCO2 50.7 mmHg (35-45); ARTERIAL BLOOD GAS PO2 162 mmHg (80-100); ARTERIAL BLOOD GAS pH 7.39 (7.35-7.45)
[2019-04-14 20:20] LABS: ALBUMIN 2.3 g/dl (3.4-5.0); ALK PHOS 400 U/L (45-117); ANION GAP 7 MMOL/L (8-16); BILIRUBIN,TOTAL 1.1 mg/dL (0.2-1); BLOOD UREA NITROGEN 76.9 mg/dL (7-18); CALCIUM 7.8 mg/dL (8.5-10.1); CHLORIDE 103 mmol/L (98-107); CO2 30 mmol/L (21-32); CREATININE 2.2 mg/dL (0.55-1.3); GLUCOSE,RANDOM 182 mg/dL (74-106); POTASSIUM 4.5 mmol/L (3.5-5.1); SGOT/AST 318 U/L (15-37); SGPT/ALT 304 U/L (13-61); SODIUM 140 mmol/L (136-145); TOT PROT 4.6 g/dl (6.4-8.2)
[2019-04-14] MEDS ORDERED: SODIUM CHLORIDE 500 ML IV STA (20:36)
--- NOTE | 2019-04-14 21:42 | HP ---
Admitting History and Physical - Primary Care Physician PCP: Ilan Durham ([facility] ) - Admission Chief Complaint: Left Hand Tremors, Left Forearm Tremors, Weakness History of Present Illness: This is a 73 y/o woman from [facility] with a PMHx of DM, Asthma, Morbid Obesity, NIKHIL (on CPAP at night), CAD s/p Stents. Who presents to the ED for evaluation of left arm tremors that started today. Patient reports that she didn't get any sleep last night and was not using her CPAP. She reports this morning when she woke up, she began having new left arm tremors with intention and at rest. Patient denies fever, chills, chest pain, SOB, numbness, tingling, weakness, confusion, AP, N/V, head trauma, syncope. Patient's family who were at bedside reports she has been sleepy all day and sleeping during conversation. History Source: Transfer Record Limitations to Obtaining History: Clinical Condition - Past Medical History Cardiovascular: Yes: CAD (s/p cardiac stents, last cath in Mar 2014 showed nonobstructive disease), HTN, Hyperlipdemia Pulmonary: Yes: COPD Gastrointestinal: Yes: Constipation Renal/: Yes: Renal Inusuff Infectious Disease: Yes: MRSA (h/o MRSA several years ago) Psych: Yes: Anxiety, Panic Musculoskeletal: Yes: Osteoarthritis Endocrine: Yes: Diabetes Mellitus, Other (Morbid Obesity) - Past Surgical History Past Surgical History: Yes: Cholecystectomy, Hysterectomy, Joint Replacement (R knee as above) - Smoking History Smoking history: Never smoked Have you smoked in the past 12 months: No Aproximately how many cigarettes per day: 0 If you are a former smoker, when did you quit?: 15 years ago - Alcohol/Substance Use Hx Alcohol Use: No History of Substance Use: reports: None - Social History Usual Living Arrangement: Yes: Long-Term ADL: Support Services History of Recent Travel: No Home Medications - Allergies Allergies/Adverse Reactions: Allergies Allergy/AdvReac Type Severity Reaction Status Date / Time metoprolol Allergy Verified 04/14/19 18:04 metronidazole Allergy Verified 04/14/19 18:04 - Home Medications Home Medications: Ambulatory Orders Aspirin [ASA -] 81 mg PO DAILY 10/05/13 Calcium 500Mg/Vit-D 200 Units [Os-Jorge 500+D -] 2 tab PO DAILY tab 01/24/18 Guaifenesin [Robitussin -] 10 ml PO Q6H PRN cup 04/19/18 Pantoprazole Sodium [Protonix -] 20 mg PO DAILY tablet.ec 04/19/18 Ammonium Lactate Lotion [Lac-Hydrin 12] 1 applic TP DAILY PRN #1 bottle Clopidogrel Bisulfate [Plavix -] 75 mg PO DAILY #30 tablet 05/26/18 Nystatin Powder [Nystop Powder -] 1 applic TP DAILY #1 bottle 05/26/18 Simvastatin [Zocor -] 40 mg PO HS #30 tablet 05/26/18 Albuterol 0.083% Nebulizer Carmen [Ventolin 0.083% Nebulizer Soln -] 1 amp NEB Q4H PRN amp 03/04/19 Albuterol 2.5/Ipratropium 0.5 [Duoneb -] 1 amp NEB RQID amp 03/04/19 Amoxicillin - [Amoxicillin 500mg Capsule -] 500 mg PO BID capsule 03/04/19 Docusate Liquid [Colace Liquid -] 300 mg PO BID ud 03/04/19 Furosemide [Lasix -] 40 mg PO BID #60 tablet 03/04/19 Gabapentin [Neurontin -] 300 mg PO BID capsule 03/04/19 Heparin - 5,000 unit SQ BID vial 03/04/19 Insulin Sliding Scale [Novolog Vial Sliding Scale -] 1 vial SQ ACHS units 03/04 Morphine *Immediate Release* [Msir -] 30 mg PO Q4H PRN #60 tab MDD 120mg predniSONE [Deltasone -] 40 mg PO DAILY tablet 03/04/19 Family Medical History Family History: Unable to Obtain Review of Systems - Review of Systems Constitutional: reports: No Symptoms Eyes: reports: No Symptoms HENT: reports: No Symptoms Neck: reports: No Symptoms Cardiovascular: reports: No Symptoms Respiratory: reports: No Symptoms Gastrointestinal: reports: No Symptoms Genitourinary: reports: No Symptoms Breasts: reports: No Symptoms Reported Musculoskeletal: reports: Back Pain, Extremity Pain, Muscle Pain Integumentary: reports: No Symptoms Neurological: reports: Tremors (left hand) Endocrine: reports: No Symptoms Hematology/Lymphatic: reports: No Symptoms Psychiatric: reports: No Symptoms Pain Intensity: 6 Physical Examination Vital Signs: Vital Signs Temperature 97.9 F 04/14/19 18:00 Pulse Rate 69 04/14/19 18:00 Respiratory Rate 18 04/14/19 18:00 Blood Pressure 120/57 L 04/14/19 18:00 O2 Sat by Pulse Oximetry (%) 100 04/14/19 18:00 Constitutional: Yes: Well Nourished, Anxious, Obese (morbidly) Eyes: Yes: WNL, Conjunctiva Clear, EOM Intact, PERRL HENT: Yes: WNL, Atraumatic, Normocephalic Neck: Yes: WNL, Supple, Trachea Midline Cardiovascular: Yes: Regular Rate and Rhythm, S1, S2 Respiratory: Yes: Diminished, On Nasal O2, Rhonchi Gastrointestinal: Yes: WNL, Normal Bowel Sounds, Soft, Abdomen, Obese ...Rectal Exam: Yes: Deferred Renal/: Yes: Incontinence Breast(s): Yes: WNL Musculoskeletal: Yes: Back Pain, Muscle Pain Edema: Yes Edema: LLE: 2+, RLE: 2+ Peripheral Pulses WNL: Yes Neurological: Yes: Alert, Oriented, Tremors (left hand) Psychiatric: Yes: WNL, Alert, Oriented Labs: CBC, BMP 04/14/19 19:20 04/14/19 19:20 Laboratory Results - last 24 hr 04/14/19 04/14/19 04/14/19 19:20 19:20 19:20 WBC RBC Hgb Hct MCV MCH MCHC RDW Plt Count MPV Absolute Neuts (auto) Total Counted Neutrophils % Neutrophils % (Manual) Band Neutrophils % Lymphocytes % Lymphocytes % (Manual) Monocytes % Monocytes % (Manual) Eosinophils % Basophils % Nucleated RBC % Differential Comment Platelet Estimate Platelet Comment Polychromasia Basophilic Stippling Macrocytosis PT with INR 12.00 INR 1.02 PTT (Actin FS) 39.0 H Anticoagulation Therapy No Result Required. Puncture Site No Result Required. ABG pH 7.39 ABG pCO2 at Pt Temp 50.7 H ABG pO2 at Pt Temp 162 H ABG HCO3 29.8 H ABG O2 Sat (Measured) 97.1 ABG O2 Content 8.6 ABG Base Excess 4.9 H Sergey Test No Result Required. Carboxyhemoglobin 1.3 Methemoglobin 3.4 H O2 Delivery Device No Result Required. Oxygen Flow Rate No Result Required. Vent Mode No Result Required. Vent Rate No Result Required. Mechanical Rate No Result Required. Pressure Support Vent No Result Required. Sodium Potassium Chloride Carbon Dioxide Anion Gap BUN Creatinine Est GFR (CKD-EPI)AfAm Est GFR (CKD-EPI)NonAf Random Glucose Calcium Total Bilirubin AST ALT Alkaline Phosphatase Creatine Kinase Troponin I Total Protein Albumin Urine Color Urine Appearance Urine pH Ur Specific Gardner Urine Protein Urine Glucose (UA) Urine Ketones Urine Blood Urine Nitrite Urine Bilirubin Urine Urobilinogen Ur Leukocyte Esterase Urine WBC (Auto) Urine RBC (Auto) Urine Casts (Auto) U Epithel Cells (Auto) Urine Bacteria (Auto) 04/14/19 04/14/19 04/14/19 19:20 19:20 21:50 WBC 12.2 H RBC 3.40 L Hgb 10.1 L Hct 30.9 L D MCV 90.7 MCH 29.7 MCHC 32.7 RDW 16.4 H Plt Count 151 D MPV 9.5 Absolute Neuts (auto) 11.3 H Total Counted 100 Neutrophils % 92.5 H Neutrophils % (Manual) 90.0 H Band Neutrophils % 3.0 Lymphocytes % 3.6 L D Lymphocytes % (Manual) 3.0 L D Monocytes % 3.2 L Monocytes % (Manual) 3 L Eosinophils % 0.1 D Basophils % 0.6 Nucleated RBC % 0 Differential Comment Man diff performed Platelet Estimate Adequate Platelet Comment Slide scanned. Polychromasia 1+ Basophilic Stippling Few Macrocytosis 1+ PT with INR INR PTT (Actin FS) Anticoagulation Therapy Puncture Site ABG pH ABG pCO2 at Pt Temp ABG pO2 at Pt Temp ABG HCO3 ABG O2 Sat (Measured) ABG O2 Content ABG Base Excess Sergey Test Carboxyhemoglobin Methemoglobin O2 Delivery Device Oxygen Flow Rate Vent Mode Vent Rate Mechanical Rate Pressure Support Vent Sodium 140 Potassium 4.5 Chloride 103 Carbon Dioxide 30 Anion Gap 7 L BUN 76.9 H Creatinine 2.2 H Est GFR (CKD-EPI)AfAm 25.13 Est GFR (CKD-EPI)NonAf 21.68 Random Glucose 182 H Calcium 7.8 L Total Bilirubin 1.1 H AST 318 H ALT 304 H Alkaline Phosphatase 400 H Creatine Kinase 8 L Troponin I < 0.02 Total Protein 4.6 L Albumin 2.3 L Urine Color Dk yellow Urine Appearance Clear Urine pH 5.0 Ur Specific Gardner 1.015 Urine Protein Trace Urine Glucose (UA) Negative Urine Ketones Negative Urine Blood 2+ H Urine Nitrite Negative Urine Bilirubin 1+ H Urine Urobilinogen 1.0 Ur Leukocyte Esterase Negative Urine WBC (Auto) 2 Urine RBC (Auto) 8 Urine Casts (Auto) 3 U Epithel Cells (Auto) 1.8 Urine Bacteria (Auto) 113.0 Intake & Output 04/12/19 04/13/19 04/14/19 04/15/19 23:59 23:59 23:59 23:59 Weight 126.552 kg Current Medications Generic Name Dose Route Start Last Admin Trade Name Freq PRN Reason Stop Dose Admin Albuterol/Ipratropium 1 amp 04/15/19 08:00 Duoneb - NEB RQID EFRAIN Aspirin 81 mg 04/15/19 10:00 Asa - PO DAILY [facility] Calcium Carbonate/Cholecalciferol 2 tab 04/15/19 10:00 Os-Jorge 500+D - PO DAILY EFRAIN Clopidogrel Bisulfate 75 mg 04/15/19 10:00 Plavix - PO DAILY [facility] Gabapentin 300 mg 04/15/19 10:00 Neurontin - PO BID [facility] Heparin Sodium (Porcine) 5,000 unit 04/14/19 22:00 04/15/19 00:40 Heparin - SQ 5,000 unit BID [facility] Administration Morphine Sulfate 30 mg 04/15/19 05:59 Msir - PO Q6H PRN PAIN LEVEL 7 - 10 Pantoprazole Sodium 20 mg 04/15/19 10:00 Protonix - PO DAILY [facility] Imaging - Results Chest X-ray: Image Reviewed Cat Scan: Report Reviewed, Image Reviewed EKG: Image Reviewed Assessment/Plan This is a 73 y/o woman from [facility] with a PMHx of DM, Asthma, Morbid Obesity, NIKHIL (on CPAP at night), CAD s/p Stents. Admitted to Non-Cardiac Tele for [place] Partial Seizures for further evaluation of their emergent condition. Plan: Admit Head CT- no ICH Appreciate Neurology consult Seizure Precautions Fall Precautions Monitor CBC, BMP Monitor vitals Continue home meds BGMs ISS Duonebs prn CPAP HS O2 Appreciate Pulmonology consult FEN- Replete lytes prn, NPO DVT ppx- OOB, SCDs, Heparin SQ Dispo: Requires Inpatient Care Visit type - Emergency Visit Emergency Visit: Yes ED Registration Date: 04/14/19 Care time: The patient presented to the Emergency Department on the above date and was hospitalized for further evaluation of their emergent condition. - New Patient This patient is new to me today: Yes Date on this admission: 04/14/19 - Critical Care Critical Care patient: No
[2019-04-14 22:37] LABS: EPI CELLS 1.8 /HPF (0-5/HPF); HYALINE CASTS 3 /lpf (0-8); URINE APPEARANCE CLEAR; URINE BILIRUBIN 1+ (NEGATIVE); URINE COLOR DK YELLOW; URINE GLUCOSE (UA) NEGATIVE (NEGATIVE); URINE KETONE NEGATIVE (NEGATIVE); URINE LEUK ESTERASE NEGATIVE (NEGATIVE); URINE NITRITE NEGATIVE (NEGATIVE); URINE PROTEIN TRACE (NEGATIVE); URINE RBC 8 /hpf (0-4); URINE WBC 2 /hpf (0-5)
[2019-04-14 22:49] LABS: MACROCYTOSIS 1+; PLATELET ESTIMATE ADEQUATE
[2019-04-14] MEDS ORDERED: morphine SULFATE IMMEDIATE RELEASE 30 MG TAB PO ONE (23:15)
[2019-04-15 00:36] LABS: CARBOXYHEMOGLOBIN 1.3 % (0-2)
[2019-04-15] MEDS ORDERED: morphine SULFATE IMMEDIATE RELEASE 30 MG TAB ONE ×2 (00:37→12:32)
[2019-04-15] MEDS ORDERED: HEPARIN NA (PORCINE) 5,000 UNITS/ML 1ML VIAL ONE (00:37)
[2019-04-15] MEDS: HEPARIN NA (PORCINE) 5,000 UNITS/ML 1ML VIAL SQ SCH ×3 (00:40→22:33)
[2019-04-15] MEDS: morphine SULFATE IMMEDIATE RELEASE 30 MG TAB PO PRN ×2 (06:05→12:39)
[2019-04-15 06:17] LABS: BASO % 0.8 % (0-2.0); EOS % 0.7 % (0-4.5); HEMATOCRIT 33.1 % (32.4-45.2); HEMOGLOBIN 10.9 GM/dL (10.7-15.3); LYMPH % 8.5 % (8-40); MCH 29.7 pg (25.7-33.7); MEAN PLT VOLUME 9.6 fl (7.5-11.1); MONO % 4.8 % (3.8-10.2); NEUT % 85.2 % (42.8-82.8); PLATELET COUNT 165 K/MM3 (134-434); RBC 3.67 M/mm3 (3.60-5.2); RDW 16.8 % (11.6-15.6)
[2019-04-15 06:42] LABS: CALCIUM 7.9 mg/dL (8.5-10.1); CREATININE 2.3 mg/dL (0.55-1.3); POTASSIUM 4.4 mmol/L (3.5-5.1)
[2019-04-15] MEDS: ALBUTEROL SO4 2.5/IPRATROPIUM 0.5 INH SOL 3 ML VIAL.NEB. NEB SCH ×4 (08:17→20:13)
[2019-04-15 08:25] LABS: IRON SERUM 39 ug/dL (50-175); TOTAL IRON BINDING CAPACITY 214 ug/dL (250-450)
[2019-04-15] MEDS: ASPIRIN 81 MG CHEWABLE TABLETS PO SCH (10:29)
[2019-04-15] MEDS: CLOPIDOGREL BISULFATE 75 MG TABLET (FP) PO SCH (10:29)
[2019-04-15] MEDS: GABAPENTIN 300 MG CAPSULE PO SCH ×2 (10:29→22:33)
[2019-04-15] MEDS: PANTOPRAZOLE 20 MG TABLET PO SCH (10:29)
[2019-04-15] MEDS: CALCIUM 500MG/VIT-D 200 UNITS COMBO TABLET (FP) PO SCH (10:29)
[2019-04-15] MEDS ORDERED: ALBUTEROL SO4 2.5/IPRATROPIUM 0.5 INH SOL 3 ML VIAL.NEB. NEB ONE ×3 (12:32→20:14)
--- NOTE | 2019-04-15 12:57 | PN ---
Progress Note (short form) - Note Progress Note: She is comfortable has no more pain no shortness of breath no seizure-like activity she is hungry no diarrhea no nausea vomiting. Vital Signs Period Temp Pulse Resp BP Sys/Gottlieb Pulse Ox Last 24 Hr 97.6 F-98.0 F 69-81 18-20 120-131/57-76 100-100 Review of system Head no headache no dizziness Ear nose throat no epistaxis Cardiovascular no chest pain Pulmonary no wheezing no coughing GI no abdominal pain Endocrine no history of diabetes hypothyroidism Neuro no history of stroke Dermatology no history of stroke Locomotor no history of joint pain Rest of review of systems are negative Physical exam Patient is comfortable HEENT normal Neck supple no JVD Lungs clear no wheezing Abdomen nontender no organomegaly bowel sounds normal Extremities no edema no cyanosis normal pulses Neurologically he is alert awake oriented, nonfocal Skin no rash noted CAT scan of the head done in the ER is normal. This is a 73 y/o woman from [facility] with a PMHx of DM, Asthma, Morbid Obesity, NIKHIL (on CPAP at night), CAD s/p Stents. Admitted to Non-Cardiac Tele for Newonset Partial Seizures for further evaluation of their emergent condition. Plan: Admit Appreciate Neurology consult Seizure Precautions Fall Precautions Monitor CBC, BMP Monitor vitals Continue home meds BGMs ISS Duonebs prn CPAP HS O2 Appreciate Pulmonology consult FEN- Replete lytes prn, NPO DVT ppx- OOB, SCDs, Heparin SQ
--- NOTE | 2019-04-15 14:30 | EKG ---
Test Reason : Blood Pressure : / mmHG Vent. Rate : 076 BPM Atrial Rate : 076 BPM P-R Int : 210 ms QRS Dur : 070 ms QT Int : 380 ms P-R-T Axes : 000 040 087 degrees QTc Int : 427 ms SINUS RHYTHM WITH 1ST DEGREE A-V BLOCK WITH PREMATURE ATRIAL COMPLEXES LOW VOLTAGE QRS SEPTAL INFARCT (CITED ON OR BEFORE 29-MAR-2018) ABNORMAL ECG Confirmed by MD PILO, WILBERT ([id number]) on 04/15/2019 2:30:10 PM Referred By: Confirmed By:WILBERT DAIGLE MD
--- NOTE | 2019-04-15 14:36 | CON.GI ---
Consult Consult Specialty:: GI covering for Dr Morley Reason for Consultation:: ask to see patient because of moderate elevation of liver enzymes - History of Present Illness History of Present Illness: 73 y/o woman from [facility] with a PMHx of DM, Asthma, Morbid Obesity, NIKHIL (on CPAP at night), CAD s/p Stents. Who presents to the ED for evaluation of left arm tremors that started today. Patient reports that she didn't get any sleep last night and was not using her CPAP. She reports this morning when she woke up, she began having new left arm tremors with intention and at rest. Patient denies fever, chills, chest pain, SOB, numbness, tingling, weakness, confusion, AP, N/V, head trauma, syncope. Patient's family who were at bedside reports she has been sleepy all day and sleeping during conversation. Today denies any seizure like activity and is very hungry, tolerated diet well - Past Medical History Cardio/Vascular: Yes: CAD (s/p cardiac stents, last cath in Mar 2014 showed nonobstructive disease), HTN, Hyperlipdemia Pulmonary: Yes: COPD Gastrointestinal: Yes: Constipation Renal/: Yes: Renal Inusuff Infectious Disease: Yes: MRSA (h/o MRSA several years ago) Psych: Yes: Anxiety, Panic Musculoskeletal: Yes: Osteoarthritis Endocrine: Yes: Diabetes Mellitus, Other (Morbid Obesity) - Past Surgical History Past Surgical History: Yes: Cholecystectomy, Hysterectomy, Joint Replacement (R knee as above) - Alcohol/Substance Use Hx Alcohol Use: No History of Substance Use: reports: None - Smoking History Smoking history: Never smoked Have you smoked in the past 12 months: No Aproximately how many cigarettes per day: 0 If you are a former smoker, when did you quit?: 15 years ago - Social History ADL: Support Services History of Recent Travel: No Home Medications - Allergies Allergies/Adverse Reactions: Allergies Allergy/AdvReac Type Severity Reaction Status Date / Time metoprolol Allergy Verified 04/14/19 18:04 metronidazole Allergy Verified 04/14/19 18:04 - Home Medications Home Medications: Ambulatory Orders Aspirin [ASA -] 81 mg PO DAILY 10/05/13 Calcium 500Mg/Vit-D 200 Units [Os-Jorge 500+D -] 2 tab PO DAILY tab 01/24/18 Guaifenesin [Robitussin -] 10 ml PO Q6H PRN cup 04/19/18 Pantoprazole Sodium [Protonix -] 20 mg PO DAILY tablet.ec 04/19/18 Ammonium Lactate Lotion [Lac-Hydrin 12] 1 applic TP DAILY PRN #1 bottle Clopidogrel Bisulfate [Plavix -] 75 mg PO DAILY #30 tablet 05/26/18 Nystatin Powder [Nystop Powder -] 1 applic TP DAILY #1 bottle 05/26/18 Simvastatin [Zocor -] 40 mg PO HS #30 tablet 05/26/18 Albuterol 0.083% Nebulizer Acrmen [Ventolin 0.083% Nebulizer Soln -] 1 amp NEB Q4H PRN amp 03/04/19 Albuterol 2.5/Ipratropium 0.5 [Duoneb -] 1 amp NEB RQID amp 03/04/19 Amoxicillin - [Amoxicillin 500mg Capsule -] 500 mg PO BID capsule 03/04/19 Docusate Liquid [Colace Liquid -] 300 mg PO BID ud 03/04/19 Furosemide [Lasix -] 40 mg PO BID #60 tablet 03/04/19 Gabapentin [Neurontin -] 300 mg PO BID capsule 03/04/19 Heparin - 5,000 unit SQ BID vial 03/04/19 Insulin Sliding Scale [Novolog Vial Sliding Scale -] 1 vial SQ ACHS units 03/04 Morphine *Immediate Release* [Msir -] 30 mg PO Q4H PRN #60 tab MDD 120mg predniSONE [Deltasone -] 40 mg PO DAILY tablet 03/04/19 Physical Exam-GI Vital Signs: Vital Signs Temperature 97.9 F 04/15/19 10:30 Pulse Rate 78 04/15/19 10:30 Respiratory Rate 20 04/15/19 10:30 Blood Pressure 129/76 04/15/19 10:30 O2 Sat by Pulse Oximetry (%) 100 04/15/19 10:30 Constitutional: Yes: Well Nourished HENT: Yes: Atraumatic Cardiovascular: Yes: Regular Rate and Rhythm Respiratory: Yes: CTA Bilaterally ...Palpate: Yes: Soft. No: Firm/Rigid, Guarding, Hepatomegaly, Mass, Pulsatile Mass, Splenomegaly, Tenderness, Tenderness, Epigastium Labs: CBC, BMP 04/15/19 05:40 04/15/19 05:40 INR, PTT INR 1.02 (0.83-1.09) 04/14/19 19:20 Hepatic Panel Total Bilirubin 1.1 mg/dL (0.2-1) H 04/14/19 19:20 AST 318 U/L (15-37) H 04/14/19 19:20 ALT 304 U/L (13-61) H 04/14/19 19:20 Alkaline Phosphatase 400 U/L (45-117) H 04/14/19 19:20 Albumin 2.3 g/dl (3.4-5.0) L 04/14/19 19:20 Active Medications Generic Name Dose Route Start Last Admin Trade Name Freq PRN Reason Stop Dose Admin Albuterol/Ipratropium 1 amp 04/15/19 08:00 04/15/19 16:15 Duoneb - NEB 1 amp RQID EFRAIN Administration Aspirin 81 mg 04/15/19 10:00 04/15/19 10:29 Asa - PO 81 mg DAILY EFRANI Administration Calcium Carbonate/Cholecalciferol 2 tab 04/15/19 10:00 04/15/19 10:29 Os-Jorge 500+D - PO 2 tab DAILY EFRAIN Administration Clopidogrel Bisulfate 75 mg 04/15/19 10:00 04/15/19 10:29 Plavix - PO 75 mg DAILY EFRAIN Administration Gabapentin 300 mg 04/15/19 10:00 04/15/19 10:29 Neurontin - PO 300 mg BID EFRAIN Administration Heparin Sodium (Porcine) 5,000 unit 04/14/19 22:00 04/15/19 10:29 Heparin - SQ 5,000 unit BID EFRAIN Administration Morphine Sulfate 30 mg 04/15/19 05:59 04/15/19 12:39 Msir - PO 30 mg Q6H PRN Administration PAIN LEVEL 7 - 10 Pantoprazole Sodium 20 mg 04/15/19 10:00 04/15/19 10:29 Protonix - PO 20 mg DAILY EFRAIN Administration Problem List - Problems (1) Hepatocellular injury Assessment/Plan: r/o secondary to Lipitor and Gabapentin R> decrease gabapentin dose if possible when restarting Lipitor decrease to 20mg and may add Zetia abdominal ultrasound if ot done yet Hepatitis profile Code(s): K76.9 - LIVER DISEASE, UNSPECIFIED
--- NOTE | 2019-04-15 16:16 | CON.PULM ---
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 Who presented to the ED for evaluation of left arm tremors that started today. Patient reports that she didn't get any sleep last night and was not using her CPAP. She reports this morning when she woke up, she began having new left arm tremors with intention and at rest. Patient denies fever, chills, chest pain, SOB, numbness, tingling, weakness, confusion, AP, N/V, head trauma, syncope. 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 No: AFIB Pulmonary: Yes: Asthma, COPD, Sleep Apnea Gastrointestinal: Yes: Constipation Renal/: Yes: Renal Inusuff Infectious Disease: Yes: MRSA (h/o MRSA several years ago) Psych: Yes: Anxiety, Panic Musculoskeletal: Yes: Osteoarthritis Endocrine: Yes: Diabetes Mellitus, Other (Morbid Obesity) - Past Surgical History Past Surgical History: Yes: Cholecystectomy, Hysterectomy, Joint Replacement (R knee as above) - Alcohol/Substance Use Hx Alcohol Use: No History of Substance Use: reports: None - Smoking History Smoking history: Never smoked Have you smoked in the past 12 months: No Aproximately how many cigarettes per day: 0 If you are a former smoker, when did you quit?: 15 years ago - Social History ADL: Support Services History of Recent Travel: No Home Medications - Allergies Allergies/Adverse Reactions: Allergies Allergy/AdvReac Type Severity Reaction Status Date / Time metoprolol Allergy Verified 04/14/19 18:04 metronidazole Allergy Verified 04/14/19 18:04 - Home Medications Home Medications: Ambulatory Orders Aspirin [ASA -] 81 mg PO DAILY 10/05/13 Calcium 500Mg/Vit-D 200 Units [Os-Jorge 500+D -] 2 tab PO DAILY tab 01/24/18 Guaifenesin [Robitussin -] 10 ml PO Q6H PRN cup 04/19/18 Pantoprazole Sodium [Protonix -] 20 mg PO DAILY tablet.ec 04/19/18 Ammonium Lactate Lotion [Lac-Hydrin 12] 1 applic TP DAILY PRN #1 bottle Clopidogrel Bisulfate [Plavix -] 75 mg PO DAILY #30 tablet 05/26/18 Nystatin Powder [Nystop Powder -] 1 applic TP DAILY #1 bottle 05/26/18 Simvastatin [Zocor -] 40 mg PO HS #30 tablet 05/26/18 Albuterol 0.083% Nebulizer Carmen [Ventolin 0.083% Nebulizer Soln -] 1 amp NEB Q4H PRN amp 03/04/19 Albuterol 2.5/Ipratropium 0.5 [Duoneb -] 1 amp NEB RQID amp 03/04/19 Amoxicillin - [Amoxicillin 500mg Capsule -] 500 mg PO BID capsule 03/04/19 Docusate Liquid [Colace Liquid -] 300 mg PO BID ud 03/04/19 Furosemide [Lasix -] 40 mg PO BID #60 tablet 03/04/19 Gabapentin [Neurontin -] 300 mg PO BID capsule 03/04/19 Heparin - 5,000 unit SQ BID vial 03/04/19 Insulin Sliding Scale [Novolog Vial Sliding Scale -] 1 vial SQ ACHS units 03/04 Morphine *Immediate Release* [Msir -] 30 mg PO Q4H PRN #60 tab MDD 120mg predniSONE [Deltasone -] 40 mg PO DAILY tablet 03/04/19 Family Medical History Family History: Unremarkable Review of Systems - Review of Systems Constitutional: denies: Fever Eyes: denies: Blurred Vision HENT: denies: Difficult Swallowing Neck: denies: Decreased ROM Cardiovascular: denies: Chest Pain Respiratory: reports: SOB on Exertion. denies: Hemoptysis, Wheezing Gastrointestinal: denies: Abdominal Pain Genitourinary: denies: Burning Breasts: reports: No Symptoms Reported Neurological: reports: Tremors (left arm) Psychiatric: reports: No Symptoms Physical Exam Vital Sings: Vital Signs Temperature 97.9 F 04/15/19 10:30 Pulse Rate 78 04/15/19 10:30 Respiratory Rate 20 04/15/19 10:30 Blood Pressure 129/76 04/15/19 10:30 O2 Sat by Pulse Oximetry (%) 100 04/15/19 10:30 Constitutional: Yes: Calm Eyes: Yes: EOM Intact HENT: Yes: Normocephalic Neck: Yes: Trachea Midline Cardiovascular: Yes: Regular Rate and Rhythm, S1, S2 Respiratory: Yes: CTA Bilaterally Gastrointestinal: Yes: Normal Bowel Sounds, Abdomen, Obese Extremities: Yes: Other (right upper ext atrophy) Integumentary: Yes: WNL Neurological: Yes: Alert Psychiatric: Yes: Alert Labs: CBC, BMP 04/15/19 05:40 04/15/19 05:40 ABG Results ABG pH 7.39 (7.35-7.45) 04/14/19 19:20 ABG pCO2 at Pt Temp 50.7 mmHg (35-45) H 04/14/19 19:20 ABG pO2 at Pt Temp 162 mmHg (80-100) H 04/14/19 19:20 ABG HCO3 29.8 mmol/L (22-27) H 04/14/19 19:20 ABG O2 Sat (Measured) 97.1 % (95-98) 04/14/19 19:20 ABG O2 Content 8.6 % vol 04/14/19 19:20 ABG Base Excess 4.9 meq/l (-2-2) H 04/14/19 19:20 rest reviewed Imaging - Results Chest X-ray: Report Reviewed, Image Reviewed Cat Scan: Report Reviewed EKG: Report Reviewed Problem List - Problems (1) SANGITA (acute kidney injury) Code(s): N17.9 - ACUTE KIDNEY FAILURE, UNSPECIFIED (2) Hepatocellular injury Code(s): K76.9 - LIVER DISEASE, UNSPECIFIED (3) Anxiety and depression Code(s): F41.9 - ANXIETY DISORDER, UNSPECIFIED; F32.9 - MAJOR DEPRESSIVE DISORDER, SINGLE EPISODE, UNSPECIFIED (4) CAD (coronary artery disease) Code(s): I25.10 - ATHSCL HEART DISEASE OF [place] CORONARY ARTERY W/O ANG PCTRS Qualifiers: Coronary Disease-Associated Artery/Lesion type: [place] dee-ni' artery Associated angina: without angina (5) CHF (congestive heart failure) Code(s): I50.9 - HEART FAILURE, UNSPECIFIED Qualifiers: Heart failure type: unspecified Heart failure chronicity: unspecified Qualified Code(s): I50.9 - Heart failure, unspecified (6) Hx of heart artery stent Code(s): Z95.5 - PRESENCE OF CORONARY ANGIOPLASTY IMPLANT AND GRAFT (7) Sleep apnea Code(s): G47.30 - SLEEP APNEA, UNSPECIFIED Assessment/Plan LEFT ARM TREMOR ETIOLOGY ? OSAS ON NIPPV COPD/ASTHMA DM M.OBESITY PCI STENTS WOULD CONTINUE PAP HS AND PRN O2/BRONCHODILATORS NEEDED PANCULTURE WILL FOLLOW THANK YOU Oswaldo JENKINS MD
--- NOTE | 2019-04-15 18:24 | CON.NEURO ---
Consult Consult Specialty:: Michele Referred by:: ER - History of Present Illness History of Present Illness: 73-year-old right-handed female patient with multiple medical problems including coronary artery disease status post stent, osteoarthritis, peripheral vascular disease, hypertension questionable presents to the hospital with a sudden onset according to the patient yesterday of left more than right arm tremors. Emergency room called me CAT scan of the head revealed no evidence for acute pathology there is no evidence of Parkinson's disease before. No recent travel no head trauma patient unfortunately had some difficulty with the right knee and she was skilled nursing. The patient came to the emergency room patient's was with high creatinine. I saw the patient in the emergency room patient is on isolation awaiting bed - History Source History Provided By: Patient Limitations to Obtaining History: No Limitations - Past Medical History YOUTH ADVOCATE: No: Alzheimer's Cardio/Vascular: Yes: CAD (s/p cardiac stents, last cath in Mar 2014 showed nonobstructive disease), HTN, Hyperlipdemia Pulmonary: Yes: COPD Gastrointestinal: Yes: Constipation Renal/: Yes: Renal Inusuff Infectious Disease: Yes: MRSA (h/o MRSA several years ago) Psych: Yes: Anxiety, Panic Musculoskeletal: Yes: Osteoarthritis Endocrine: Yes: Diabetes Mellitus, Other (Morbid Obesity) - Past Surgical History Past Surgical History: Yes: Cholecystectomy, Hysterectomy, Joint Replacement (R knee as above) - Alcohol/Substance Use Hx Alcohol Use: No History of Substance Use: reports: None - Smoking History Smoking history: Never smoked Have you smoked in the past 12 months: No Aproximately how many cigarettes per day: 0 If you are a former smoker, when did you quit?: 15 years ago - Social History ADL: Support Services History of Recent Travel: No Home Medications - Allergies Allergies/Adverse Reactions: Allergies Allergy/AdvReac Type Severity Reaction Status Date / Time metoprolol Allergy Verified 04/14/19 18:04 metronidazole Allergy Verified 04/14/19 18:04 - Home Medications Home Medications: Ambulatory Orders Aspirin [ASA -] 81 mg PO DAILY 10/05/13 Calcium 500Mg/Vit-D 200 Units [Os-Jorge 500+D -] 2 tab PO DAILY tab 01/24/18 Guaifenesin [Robitussin -] 10 ml PO Q6H PRN cup 04/19/18 Pantoprazole Sodium [Protonix -] 20 mg PO DAILY tablet.ec 04/19/18 Ammonium Lactate Lotion [Lac-Hydrin 12] 1 applic TP DAILY PRN #1 bottle Clopidogrel Bisulfate [Plavix -] 75 mg PO DAILY #30 tablet 05/26/18 Nystatin Powder [Nystop Powder -] 1 applic TP DAILY #1 bottle 05/26/18 Simvastatin [Zocor -] 40 mg PO HS #30 tablet 05/26/18 Albuterol 0.083% Nebulizer Carmen [Ventolin 0.083% Nebulizer Soln -] 1 amp NEB Q4H PRN amp 03/04/19 Albuterol 2.5/Ipratropium 0.5 [Duoneb -] 1 amp NEB RQID amp 03/04/19 Amoxicillin - [Amoxicillin 500mg Capsule -] 500 mg PO BID capsule 03/04/19 Docusate Liquid [Colace Liquid -] 300 mg PO BID ud 03/04/19 Furosemide [Lasix -] 40 mg PO BID #60 tablet 03/04/19 Gabapentin [Neurontin -] 300 mg PO BID capsule 03/04/19 Heparin - 5,000 unit SQ BID vial 03/04/19 Insulin Sliding Scale [Novolog Vial Sliding Scale -] 1 vial SQ ACHS units 03/04 Morphine *Immediate Release* [Msir -] 30 mg PO Q4H PRN #60 tab MDD 120mg predniSONE [Deltasone -] 40 mg PO DAILY tablet 03/04/19 Family Medical History Family History: Unable to Obtain Review of Systems - Review of Systems Constitutional: reports: No Symptoms Eyes: reports: No Symptoms Neurological: reports: Headache, Incoordination, Numbness, Parasthesia, Pre- Existing Deficit Physical Exam-Neuro Vital Signs: Vital Signs Temperature 98.2 F 04/15/19 16:39 Pulse Rate 78 04/15/19 16:39 Respiratory Rate 18 04/15/19 16:39 Blood Pressure 120/56 L 04/15/19 16:39 O2 Sat by Pulse Oximetry (%) 98 04/15/19 16:39 Constitutional: Yes: Well Nourished Neck: Yes: WNL Cardiovascular: Yes: WNL Labs: CBC, BMP 04/15/19 05:40 04/15/19 05:40 INR, PTT INR 1.02 (0.83-1.09) 04/14/19 19:20 - Neuro Exam Level Of Consciousness: Yes: Oriented to Person, Oriented to Place, Oriented to Time Eyes: Yes: PERRLA Speech: WNL Dominant Hand: Left Cranial Nerves II-XII Intact: Yes Gag: Present DTR's: 0 Left Bicep, 0 Right Bicep, 0 Left Tricep, 0 Right Tricep Response to light touch: Abnormal Response to pain prick: Abnormal Response to temperature: Abnormal Movement Disorders: Myoclonus Motor Strength: 1/5: Right Arm, 3/5: Left Leg, Right Leg, Left Arm Gait: Deferred Imaging - Results Cat Scan: Image Reviewed Problem List - Problems (1) Tremors of nervous system Code(s): R25.1 - TREMOR, UNSPECIFIED Assessment/Plan these tremors are classic for myoclonic jerks probably associated with the acute and top of chronic renal failure together with elevated transaminases. These are not Parkinson's disease these are more coarse than essential tremors 1. Klonopin 0.5 mg twice daily. 2. Follow-up with nephrology. 3. DVT prophylaxis. 4. No need for EEG. Jose Bautista M.D., MSc [facility] [address] [place] [address] Office
[2019-04-15] MEDS ORDERED: clonazePAM 0.5 MG TABLET PO PRN (18:25)
[2019-04-15] MEDS ORDERED: clonazePAM 0.5 MG TABLET ONE (18:54)
[2019-04-16 00:55] VITALS: BMI 51.0
[2019-04-16] MEDS: morphine SULFATE IMMEDIATE RELEASE 30 MG TAB PO PRN ×3 (04:39→16:48)
[2019-04-16] MEDS: ALBUTEROL SO4 2.5/IPRATROPIUM 0.5 INH SOL 3 ML VIAL.NEB. NEB SCH ×4 (07:48→20:08)
[2019-04-16] MEDS: ASPIRIN 81 MG CHEWABLE TABLETS PO SCH (10:35)
[2019-04-16] MEDS: GABAPENTIN 300 MG CAPSULE PO SCH ×2 (10:35→21:20)
[2019-04-16] MEDS: HEPARIN NA (PORCINE) 5,000 UNITS/ML 1ML VIAL SQ SCH ×2 (10:35→21:20)
[2019-04-16] MEDS: CLOPIDOGREL BISULFATE 75 MG TABLET (FP) PO SCH (10:35)
[2019-04-16] MEDS: PANTOPRAZOLE 20 MG TABLET PO SCH (10:35)
[2019-04-16] MEDS: CALCIUM 500MG/VIT-D 200 UNITS COMBO TABLET (FP) PO SCH (10:35)
--- NOTE | 2019-04-16 11:24 | PN ---
Progress Note (short form) - Note Progress Note: PULMONARY VSS/AFEBRILE APPEARS IMPROVED THIS AM LESS LEFT UPPER EXT MYOCLONIC JERKS Constitutional: Yes: Calm Eyes: Yes: EOM Intact HENT: Yes: Normocephalic Neck: Yes: Trachea Midline Cardiovascular: Yes: Regular Rate and Rhythm, S1, S2 Respiratory: Yes: CTA Bilaterally Gastrointestinal: Yes: Normal Bowel Sounds, Abdomen, Obese Extremities: Yes: Other (right upper ext atrophy) Integumentary: Yes: WNL Neurological: Yes: Alert Psychiatric: Yes: Alert Labs: NOTED TRANSAMINITIS BUN 74/CR 2.3 REST OF LABS REVIEWED Imaging - Results Chest X-ray: Report Reviewed, Image Reviewed Cat Scan: Report Reviewed EKG: Report Reviewed Problem List - Problems (1) SANGITA (acute kidney injury) Code(s): N17.9 - ACUTE KIDNEY FAILURE, UNSPECIFIED (2) Hepatocellular injury Code(s): K76.9 - LIVER DISEASE, UNSPECIFIED (3) Anxiety and depression Code(s): F41.9 - ANXIETY DISORDER, UNSPECIFIED; F32.9 - MAJOR DEPRESSIVE DISORDER, SINGLE EPISODE, UNSPECIFIED (4) CAD (coronary artery disease) Code(s): I25.10 - ATHSCL HEART DISEASE OF [place] CORONARY ARTERY W/O ANG PCTRS Qualifiers: Coronary Disease-Associated Artery/Lesion type: [place] artery Associated angina: without angina (5) CHF (congestive heart failure) Code(s): I50.9 - HEART FAILURE, UNSPECIFIED Qualifiers: Heart failure type: unspecified Heart failure chronicity: unspecified Qualified Code(s): I50.9 - Heart failure, unspecified (6) Hx of heart artery stent Code(s): Z95.5 - PRESENCE OF CORONARY ANGIOPLASTY IMPLANT AND GRAFT (7) Sleep apnea Code(s): G47.30 - SLEEP APNEA, UNSPECIFIED LEFT ARM MYOCLONIC JERKS BELIEVED TO BE DUE TO TRANSAMINITIS/RENAL INSUFFICIENCY OSAS ON NIPPV COPD/ASTHMA DM M.OBESITY PCI STENTS CONTINUE CURRENT TREATMENT PLAN Oswaldo JENKINS MD Problem List - Problems (1) SANGITA (acute kidney injury) Code(s): N17.9 - ACUTE KIDNEY FAILURE, UNSPECIFIED (2) Hepatocellular injury Code(s): K76.9 - LIVER DISEASE, UNSPECIFIED (3) Anxiety and depression Code(s): F41.9 - ANXIETY DISORDER, UNSPECIFIED; F32.9 - MAJOR DEPRESSIVE DISORDER, SINGLE EPISODE, UNSPECIFIED (4) CAD (coronary artery disease) Code(s): I25.10 - ATHSCL HEART DISEASE OF [place] CORONARY ARTERY W/O ANG PCTRS Qualifiers: Coronary Disease-Associated Artery/Lesion type: [place] artery Associated angina: without angina (5) CHF (congestive heart failure) Code(s): I50.9 - HEART FAILURE, UNSPECIFIED Qualifiers: Heart failure type: unspecified Heart failure chronicity: unspecified Qualified Code(s): I50.9 - Heart failure, unspecified (6) Hx of heart artery stent Code(s): Z95.5 - PRESENCE OF CORONARY ANGIOPLASTY IMPLANT AND GRAFT (7) Sleep apnea Code(s): G47.30 - SLEEP APNEA, UNSPECIFIED
--- NOTE | 2019-04-16 14:35 | PN.GI ---
GI Progress Note Subjective: no nausea and vomiting, still with tremors,CMP not done today - Objective Vital Signs: Vital Signs Temperature 98.2 F 04/16/19 10:00 Pulse Rate 94 H 04/16/19 10:00 Respiratory Rate 18 04/16/19 10:00 Blood Pressure 98/62 04/16/19 10:00 O2 Sat by Pulse Oximetry (%) 98 04/16/19 10:00 Constitutional: Obese Eyes: Yes: Conjunctiva Clear HENT: Yes: Atraumatic Neck: Yes: Supple Cardiovascular: Yes: Regular Rate and Rhythm Respiratory: Yes: CTA Bilaterally ...Palpate: Yes: Soft. No: Firm/Rigid, Guarding, Hepatomegaly, Mass, Pulsatile Mass, Splenomegaly Labs: CBC, BMP 04/15/19 05:40 04/15/19 05:40 INR, PTT INR 1.02 (0.83-1.09) 04/14/19 19:20 Problem List - Problems (1) Hepatocellular injury Assessment/Plan: most likely secondary to hepato drug toxicity R> abd ultrasound CMP in am Dr Morley will assume care in am Code(s): K76.9 - LIVER DISEASE, UNSPECIFIED
[2019-04-16] MEDS ORDERED: clonazePAM 0.5 MG TABLET PO PRN (15:08)
--- NOTE | 2019-04-16 15:10 | PN ---
Progress Note, Physician History of Present Illness: vents noted chart review at seen on the floor On isolation Still the left arm with tremors better slightly On clonazepam Seen by GI - Current Medication List Current Medications: Active Medications Albuterol/Ipratropium (Duoneb -) 1 amp NEB RQID [facility] Last Admin: 04/16/19 11:26 Dose: 1 amp Aspirin (Asa -) 81 mg PO DAILY [facility] Last Admin: 04/16/19 10:35 Dose: 81 mg Calcium Carbonate/Cholecalciferol (Os-Jorge 500+D -) 2 tab PO DAILY [facility] Last Admin: 04/16/19 10:35 Dose: 2 tab Clonazepam (Klonopin -) 0.5 mg PO BID PRN PRN Reason: ANXIETY Clopidogrel Bisulfate (Plavix -) 75 mg PO DAILY [facility] Last Admin: 04/16/19 10:35 Dose: 75 mg Gabapentin (Neurontin -) 300 mg PO BID [facility] Last Admin: 04/16/19 10:35 Dose: 300 mg Heparin Sodium (Porcine) (Heparin -) 5,000 unit SQ BID [facility] Last Admin: 04/16/19 10:35 Dose: 5,000 unit Morphine Sulfate (Msir -) 30 mg PO Q6H PRN PRN Reason: PAIN LEVEL 7 - 10 Last Admin: 04/16/19 10:42 Dose: 30 mg Pantoprazole Sodium (Protonix -) 20 mg PO DAILY [facility] Last Admin: 04/16/19 10:35 Dose: 20 mg - Objective Vital Signs: Vital Signs Temperature 99 F 04/16/19 14:41 Pulse Rate 145 H 04/16/19 14:41 Respiratory Rate 22 H 04/16/19 14:41 Blood Pressure 115/67 04/16/19 14:41 O2 Sat by Pulse Oximetry (%) 98 04/16/19 10:00 Constitutional: Yes: Well Nourished Eyes: Yes: WNL HENT: Yes: WNL Neurological: Yes: Alert, Oriented, Babinski positive ...Motor Strength: WNL Labs: CBC, BMP 04/15/19 05:40 04/15/19 05:40 INR, PTT INR 1.02 (0.83-1.09) 04/14/19 19:20 Problem List - Problems (1) Tremors of nervous system Assessment/Plan: . Increase Klonopin 0.5 mg twice daily. 2. Follow-up with gastroenterology. 3. DVT prophylaxis. 4. No need for EEG Code(s): R25.1 - TREMOR, UNSPECIFIED
--- NOTE | 2019-04-16 15:38 | PN ---
Progress Note (short form) - Note Progress Note: She is comfortable has no more pain no shortness of breath no seizure-like activity she is hungry no diarrhea no nausea vomiting. seen by vignesh and she is better Vital Signs Period Temp Pulse Resp BP Sys/Gottlieb Pulse Ox Last 24 Hr 97.6 F-98.0 F 69-81 18-20 120-131/57-76 100-100 Review of system Head no headache no dizziness Ear nose throat no epistaxis Cardiovascular no chest pain Pulmonary no wheezing no coughing GI no abdominal pain Endocrine no history of diabetes hypothyroidism Neuro no history of stroke Dermatology no history of stroke Locomotor no history of joint pain Rest of review of systems are negative Physical exam Patient is comfortable HEENT normal Neck supple no JVD Lungs clear no wheezing Abdomen nontender no organomegaly bowel sounds normal Extremities no edema no cyanosis normal pulses Neurologically he is alert awake oriented, nonfocal Skin no rash noted CAT scan of the head done in the ER is normal. This is a 73 y/o woman from [facility] with a PMHx of DM, Asthma, Morbid Obesity, NIKHIL (on CPAP at night), CAD s/p Stents. Admitted to Non-Cardiac Tele for [place] Partial Seizures for further evaluation of their emergent condition. Plan: Appreciate Neurology consult and inc [facility] to bid Seizure Precautions Fall Precautions Monitor CBC, BMP Monitor vitals Continue home meds BGMs ISS Duonebs prn CPAP HS O2 FEN- Replete lytes prn, NPO DVT ppx- OOB, SCDs, Heparin SQ
[2019-04-17 08:04] LABS: ALBUMIN 2.2 g/dl (3.4-5.0); BILIRUBIN,TOTAL 0.8 mg/dL (0.2-1); BLOOD UREA NITROGEN 72.4 mg/dL (7-18); CALCIUM 7.9 mg/dL (8.5-10.1); CREATININE 1.8 mg/dL (0.55-1.3); POTASSIUM 4.5 mmol/L (3.5-5.1); TOT PROT 4.4 g/dl (6.4-8.2)
[2019-04-17] MEDS: ALBUTEROL SO4 2.5/IPRATROPIUM 0.5 INH SOL 3 ML VIAL.NEB. NEB SCH ×4 (08:14→20:03)
--- NOTE | 2019-04-17 08:49 | PN ---
Progress Note (short form) - Note Progress Note: CBC, BMP 04/15/19 05:40 04/17/19 07:10 Vital Signs Period Temp Pulse Resp BP Sys/Gottlieb Pulse Ox Last 24 Hr 97.9 F-99 F 72-145 18-22 93-129/51-87 98-100 Active Medications Albuterol/Ipratropium (Duoneb -) 1 amp NEB RQID [facility] Last Admin: 04/17/19 08:14 Dose: 1 amp Amoxicillin (Amoxicillin -) 500 mg PO BID [facility] Aspirin (Asa -) 81 mg PO DAILY [facility] Last Admin: 04/16/19 10:35 Dose: 81 mg Calcium Carbonate/Cholecalciferol (Os-Jorge 500+D -) 2 tab PO DAILY [facility] Last Admin: 04/16/19 10:35 Dose: 2 tab Clonazepam (Klonopin -) 0.5 mg PO BID PRN PRN Reason: ANXIETY Clopidogrel Bisulfate (Plavix -) 75 mg PO DAILY [facility] Last Admin: 04/16/19 10:35 Dose: 75 mg Gabapentin (Neurontin -) 300 mg PO BID [facility] Last Admin: 04/16/19 21:20 Dose: 300 mg Heparin Sodium (Porcine) (Heparin -) 5,000 unit SQ BID [facility] Last Admin: 04/16/19 21:20 Dose: 5,000 unit Lactic Acid (Lac-Hydrin 12) 1 applic TP DAILY PRN PRN Reason: xerosis Morphine Sulfate (Msir -) 30 mg PO Q6H PRN PRN Reason: PAIN LEVEL 7 - 10 Last Admin: 04/16/19 16:48 Dose: 30 mg Nystatin (Nystop Powder -) 1 applic TP DAILY [facility] Pantoprazole Sodium (Protonix -) 20 mg PO DAILY [facility] Last Admin: 04/16/19 10:35 Dose: 20 mg s1s2 rrr lungs scattered rhonchi bilaterally, clears upon cough abd obese, non tender no edema awake alert oriented x3 myoclonic jerks and resting tremor noted in left arm (right arm is atrophic) 73 yo lady with PMH of CAD, HTN, Morbid obesity, NIKHIL, NIDDM admitted from [place] for myoclonic jerks-of note similar episodes have been happening during previous hospitalizations-always improved upon medical stabilization this episode may have been due to resp decompensation due to not using BIPAP for a day labs are better, vitals are stable awaiting liver us lasix held-may rsume at a later stage depending on clinical condition cont BIPAP PT eval dc planing to mt tomorrow
[2019-04-17] MEDS: HEPARIN NA (PORCINE) 5,000 UNITS/ML 1ML VIAL SQ SCH ×2 (09:27→21:36)
[2019-04-17] MEDS: CLOPIDOGREL BISULFATE 75 MG TABLET (FP) PO SCH (09:27)
[2019-04-17] MEDS: ASPIRIN 81 MG CHEWABLE TABLETS PO SCH (09:28)
[2019-04-17] MEDS: GABAPENTIN 300 MG CAPSULE PO SCH ×2 (09:28→21:36)
[2019-04-17 10:06] LABS: IMMUNOGLOBULIN D < 1.28 mg/dL (<14.11)
--- NOTE | 2019-04-17 12:05 | PN ---
Progress Note, Physician History of Present Illness: pulmonary alert,c/o cough,-sob,+ tremors - Current Medication List Current Medications: Active Medications Albuterol/Ipratropium (Duoneb -) 1 amp NEB RQID [facility] Last Admin: 04/17/19 08:14 Dose: 1 amp Amoxicillin (Amoxicillin -) 500 mg PO BID [facility] Aspirin (Asa -) 81 mg PO DAILY [facility] Last Admin: 04/17/19 09:28 Dose: 81 mg Calcium Carbonate/Cholecalciferol (Os-Jorge 500+D -) 2 tab PO DAILY [facility] Last Admin: 04/16/19 10:35 Dose: 2 tab Clonazepam (Klonopin -) 0.5 mg PO BID PRN PRN Reason: ANXIETY Clopidogrel Bisulfate (Plavix -) 75 mg PO DAILY [facility] Last Admin: 04/17/19 09:27 Dose: 75 mg Gabapentin (Neurontin -) 300 mg PO BID [facility] Last Admin: 04/17/19 09:28 Dose: 300 mg Heparin Sodium (Porcine) (Heparin -) 5,000 unit SQ BID [facility] Last Admin: 04/17/19 09:27 Dose: 5,000 unit Lactic Acid (Lac-Hydrin 12) 1 applic TP DAILY PRN PRN Reason: xerosis Morphine Sulfate (Msir -) 15 mg PO Q6H PRN PRN Reason: PAIN LEVEL 7 - 10 Nystatin (Nystop Powder -) 1 applic TP DAILY [facility] Pantoprazole Sodium (Protonix -) 20 mg PO DAILY [facility] Last Admin: 04/16/19 10:35 Dose: 20 mg - Objective Vital Signs: Vital Signs Temperature 98.8 F 04/17/19 09:25 Pulse Rate 82 04/17/19 09:25 Respiratory Rate 19 04/17/19 09:25 Blood Pressure 126/48 L 04/17/19 09:25 O2 Sat by Pulse Oximetry (%) 100 04/17/19 05:55 Constitutional: Yes: Calm, Obese Eyes: Yes: WNL HENT: Yes: WNL Neck: Yes: WNL Cardiovascular: Yes: Regular Rate and Rhythm, S1, S2 Respiratory: Yes: Rhonchi (scattered mono rhonchi) Gastrointestinal: Yes: Normal Bowel Sounds, Soft, Abdomen, Obese Extremities: Yes: Erythema Edema: Yes Neurological: Yes: Tremors Labs: CBC, BMP 04/17/19 07:10 Laboratory Tests 04/17/19 07:10 Sodium 140 Potassium 4.5 Chloride 105 Carbon Dioxide 29 Anion Gap 6 L BUN 72.4 H Creatinine 1.8 H Problem List - Problems (1) Tremors of nervous system Code(s): R25.1 - TREMOR, UNSPECIFIED (2) Vvtfe-lb-cpzqylc kidney injury Code(s): N17.9 - ACUTE KIDNEY FAILURE, UNSPECIFIED; N18.9 - CHRONIC KIDNEY DISEASE, UNSPECIFIED Assessment/Plan Problem List - Problems (1) SANGITA (acute kidney injury) Code(s): N17.9 - ACUTE KIDNEY FAILURE, UNSPECIFIED (2) Hepatocellular injury Code(s): K76.9 - LIVER DISEASE, UNSPECIFIED (3) Anxiety and depression Code(s): F41.9 - ANXIETY DISORDER, UNSPECIFIED; F32.9 - MAJOR DEPRESSIVE DISORDER, SINGLE EPISODE, UNSPECIFIED (4) CAD (coronary artery disease) Code(s): I25.10 - ATHSCL HEART DISEASE OF [place] CORONARY ARTERY W/O ANG PCTRS Qualifiers: Coronary Disease-Associated Artery/Lesion type: [place] artery Associated angina: without angina (5) CHF (congestive heart failure) Code(s): I50.9 - HEART FAILURE, UNSPECIFIED Qualifiers: Heart failure type: unspecified Heart failure chronicity: unspecified Qualified Code(s): I50.9 - Heart failure, unspecified (6) Hx of heart artery stent Code(s): Z95.5 - PRESENCE OF CORONARY ANGIOPLASTY IMPLANT AND GRAFT (7) Sleep apnea Code(s): G47.30 - SLEEP APNEA, UNSPECIFIED Assessment/Plan LEFT ARM TREMOR ETIOLOGY ? OSAS ON NIPPV COPD/ASTHMA DM M.OBESITY PCI STENTS COUGH ACUTE ON CHRONIC RENAL FAILURE WOULD CONTINUE PAP HS AND PRN O2 BRONCHODILATORS MONITOR LYTES,RENAL FUNCTION DR PIERSON
[2019-04-17] MEDS: CALCIUM 500MG/VIT-D 200 UNITS COMBO TABLET (FP) PO SCH (12:35)
[2019-04-17] MEDS: AMOXICILLIN 500 MG CAPSULE (FP) PO SCH ×2 (12:35→21:36)
[2019-04-17] MEDS: PANTOPRAZOLE 20 MG TABLET PO SCH (12:35)
[2019-04-17] MEDS: AMMONIUM LACTATE 12% LOTION 225 GM BOTTLE TP PRN (12:36)
[2019-04-17] MEDS: NYSTATIN POWDER 100,000 UNITS/GM - 15 GM TOPICAL POWDER TP SCH (12:37)
[2019-04-17 23:09] LABS: HEP B CORE AB, TOT Negative (Negative)
[2019-04-17] MEDS: morphine SULFATE IMMEDIATE RELEASE 30 MG TAB PO PRN (23:24)
[2019-04-18 04:10] LABS: FIBROSIS SCORE. 0.71 (0.00-0.21); HCV ALPHA 2 MACRO CHART 220 mg/dL (110-276); NECRO.INFLAM ACT.SCORE 0.93 (0.00-0.17); NECROINFLAM. ACTIVITY GRADE A3-Severe activity (.)
[2019-04-18] MEDS: ALBUTEROL SO4 2.5/IPRATROPIUM 0.5 INH SOL 3 ML VIAL.NEB. NEB SCH ×2 (08:30→12:18)
--- NOTE | 2019-04-18 08:42 | DS ---
Physical Examination Vital Signs: Vital Signs Temperature 97.9 F 04/18/19 06:00 Pulse Rate 79 04/18/19 06:00 Respiratory Rate 20 04/18/19 06:00 Blood Pressure 102/43 L 04/18/19 06:00 O2 Sat by Pulse Oximetry (%) 98 04/18/19 00:08 Constitutional: Yes: Calm, Obese Eyes: Yes: EOM Intact HENT: Yes: Normocephalic Neck: Yes: Trachea Midline Cardiovascular: Yes: Regular Rate and Rhythm Respiratory: Yes: Rhonchi (scattered rhonchi-clears with cough) Gastrointestinal: Yes: Normal Bowel Sounds, Abdomen, Obese Musculoskeletal: Yes: Other (right arm atrophy) Edema: No Peripheral Pulses WNL: Yes Integumentary: Yes: Other (bruising from venipuncture and iv sites on arms) Neurological: Yes: WNL, Other (slight tremor in right hand better than upon admission) Psychiatric: Yes: WNL Labs: CBC, BMP 04/15/19 05:40 04/17/19 07:10 Discharge Summary Problems reviewed: Yes Reason For Visit: ACUTE KIDNEY ONJURY,TRANSAMINASEMIA,FOCAL SEIZURE Current Active Problems SANGITA (acute kidney injury) (Acute) Elevated transaminase level (Acute) Hepatocellular injury (Acute) Partial seizure (Acute) Tremors of nervous system (Acute) Hospital Course: 73 yo lady with PMH of CAD, HTN, Morbid obesity, NIKHIL, NIDDM admitted [place] for myoclonic jerks-of note similar episodes have been happening during previous hospitalizations-always improved upon medical stabilization this episode may have been due to resp decompensation due to not using BIPAP for a day also noted elevated lfts likey due to ceftriaxone use-hepatitis panel was ok, liver US showed cholecystectomy and fatty liver also renal function was elevated-lasix held-may resume at a lower dose and monitor renal function cont BIPAP every night and as needed PT eval/chest pt labs are better, vitals are stable may return to snf Condition: Guarded - Instructions Diet, Activity, Other Instructions: monitor liver function and renal function in 1 week Referrals: Vinicio Leahy MD [Primary Care Provider] - Disposition: HALF-WAY FACILITY - Home Medications Comprehensive Discharge Medication List: Ambulatory Orders Aspirin [ASA -] 81 mg PO DAILY 10/05/13 Calcium 500Mg/Vit-D 200 Units [Os-Jorge 500+D -] 2 tab PO DAILY tab 01/24/18 Guaifenesin [Robitussin -] 10 ml PO Q6H PRN cup 04/19/18 Pantoprazole Sodium [Protonix -] 20 mg PO DAILY tablet.ec 04/19/18 Ammonium Lactate Lotion [Lac-Hydrin 12] 1 applic TP DAILY PRN #1 bottle Clopidogrel Bisulfate [Plavix -] 75 mg PO DAILY #30 tablet 05/26/18 Nystatin Powder [Nystop Powder -] 1 applic TP DAILY #1 bottle 05/26/18 Simvastatin [Zocor -] 40 mg PO HS #30 tablet 05/26/18 Albuterol 0.083% Nebulizer Carmen [Ventolin 0.083% Nebulizer Soln -] 1 amp NEB Q4H PRN amp 03/04/19 Albuterol 2.5/Ipratropium 0.5 [Duoneb -] 1 amp NEB RQID amp 03/04/19 Amoxicillin - [Amoxicillin 500mg Capsule -] 500 mg PO BID capsule 03/04/19 Docusate Liquid [Colace Liquid -] 300 mg PO BID ud 03/04/19 Gabapentin [Neurontin -] 300 mg PO BID capsule 03/04/19 Heparin - 5,000 unit SQ BID vial 03/04/19 Furosemide [Lasix -] 40 mg PO DAILY #30 tablet 04/18/19 Heparin - 5,000 unit SQ BID vial 04/18/19 Morphine *Immediate Release* [Msir -] 15 mg PO Q6H PRN 7 Days #30 tab MDD 4 01/25 clonazePAM [Klonopin -] 0.5 mg PO BID PRN #30 tablet MDD 2 04/18/19
[2019-04-18] MEDS ORDERED: PT OWN MED DRAWER 7, Y5N ONE (09:30)
[2019-04-18 10:00] VITALS: BP 129/60; PULSE 80; TEMP 98.9
[2019-04-18] MEDS: GABAPENTIN 300 MG CAPSULE PO SCH (10:00)
[2019-04-18] MEDS: ASPIRIN 81 MG CHEWABLE TABLETS PO SCH (10:00)
[2019-04-18] MEDS: CALCIUM 500MG/VIT-D 200 UNITS COMBO TABLET (FP) PO SCH (10:00)
[2019-04-18] MEDS: PANTOPRAZOLE 20 MG TABLET PO SCH (10:00)
[2019-04-18] MEDS: CLOPIDOGREL BISULFATE 75 MG TABLET (FP) PO SCH (10:00)
[2019-04-18] MEDS: HEPARIN NA (PORCINE) 5,000 UNITS/ML 1ML VIAL SQ SCH (10:00)
[2019-04-18] MEDS: AMOXICILLIN 500 MG CAPSULE (FP) PO SCH (10:01)
[2019-04-18] MEDS: AMMONIUM LACTATE 12% LOTION 225 GM BOTTLE TP PRN (10:01)
[2019-04-18] MEDS: NYSTATIN POWDER 100,000 UNITS/GM - 15 GM TOPICAL POWDER TP SCH (10:01)
[2019-04-18] MEDS: morphine SULFATE IMMEDIATE RELEASE 30 MG TAB PO PRN (10:14)
--- NOTE | 2019-04-18 10:40 | PN ---
Progress Note, Physician History of Present Illness: events noted Chart reviwed Alert Awake oriented - Current Medication List Current Medications: Active Medications Albuterol/Ipratropium (Duoneb -) 1 amp NEB RQID [facility] Last Admin: 04/17/19 20:03 Dose: 1 amp Amoxicillin (Amoxicillin -) 500 mg PO BID [facility] Last Admin: 04/18/19 10:01 Dose: 500 mg Aspirin (Asa -) 81 mg PO DAILY [facility] Last Admin: 04/18/19 10:00 Dose: 81 mg Calcium Carbonate/Cholecalciferol (Os-Jorge 500+D -) 2 tab PO DAILY [facility] Last Admin: 04/18/19 10:00 Dose: 2 tab Clonazepam (Klonopin -) 0.5 mg PO BID PRN PRN Reason: ANXIETY Clopidogrel Bisulfate (Plavix -) 75 mg PO DAILY [facility] Last Admin: 04/18/19 10:00 Dose: 75 mg Gabapentin (Neurontin -) 300 mg PO BID [facility] Last Admin: 04/18/19 10:00 Dose: 300 mg Heparin Sodium (Porcine) (Heparin -) 5,000 unit SQ BID [facility] Last Admin: 04/18/19 10:00 Dose: 5,000 unit Lactic Acid (Lac-Hydrin 12) 1 applic TP DAILY PRN PRN Reason: xerosis Last Admin: 04/18/19 10:01 Dose: 1 applic Morphine Sulfate (Msir -) 15 mg PO Q6H PRN PRN Reason: PAIN LEVEL 7 - 10 Last Admin: 04/18/19 10:14 Dose: 15 mg Nystatin (Nystop Powder -) 1 applic TP DAILY [facility] Last Admin: 04/18/19 10:01 Dose: 1 applic Pantoprazole Sodium (Protonix -) 20 mg PO DAILY [facility] Last Admin: 04/18/19 10:00 Dose: 20 mg - Objective Vital Signs: Vital Signs Temperature 98.9 F 04/18/19 09:59 Pulse Rate 80 04/18/19 09:59 Respiratory Rate 19 04/18/19 09:59 Blood Pressure 129/60 04/18/19 09:59 O2 Sat by Pulse Oximetry (%) 98 04/18/19 00:08 Constitutional: Yes: Well Nourished Eyes: Yes: WNL HENT: Yes: WNL Neurological: Yes: Alert, Oriented, Babinski negative ...Motor Strength: WNL Labs: CBC, BMP 04/15/19 05:40 04/17/19 07:10 INR, PTT INR 1.02 (0.83-1.09) 04/14/19 19:20 Problem List - Problems (1) Tremors of nervous system Assessment/Plan: Klopnpin PT Fall precautions DC planning Code(s): R25.1 - TREMOR, UNSPECIFIED
== END 2019-04-18 13:53 | DRG 92 ==
LOC: JER 17:43 → JERBED 20:53 → J4S 04-15 21:13
PROVIDERS: ADMIT Internal Medicine; ATTEND Internal Medicine
PROC: 5A09357 Assistance with Respiratory Ventilation, Less than 24 Consecutive Hours, Continuous Positive Airway Pressure (ICD-10-PCS; principal; 2019-04-16)
DX: R25.1 Tremor, unspecified (principal); N17.9 Acute kidney failure, unspecified; I13.0 Hypertensive heart and chronic kidney disease with heart failure and stage 1 through stage 4 chronic kidney disease, or unspecified chronic kidney disease; Z68.43 Body mass index [BMI] 50.0-59.9, adult; E66.01 Morbid (severe) obesity due to excess calories; G47.33 Obstructive sleep apnea (adult) (pediatric); E11.51 Type 2 diabetes mellitus with diabetic peripheral angiopathy without gangrene; I25.10 Atherosclerotic heart disease of native coronary artery without angina pectoris; J45.909 Unspecified asthma, uncomplicated; Z79.4 Long term (current) use of insulin; K76.9 Liver disease, unspecified; F41.9 Anxiety disorder, unspecified; F32.9 Major depressive disorder, single episode, unspecified; I50.9 Heart failure, unspecified; E11.22 Type 2 diabetes mellitus with diabetic chronic kidney disease; N18.9 Chronic kidney disease, unspecified; K76.0 Fatty (change of) liver, not elsewhere classified
CPT/HCPCS: 36415; 36600; 70450-TC; 71045-TC-FY; 76705-TC; 80048; 80053; 81003; 82172; 82375; 82550; 82784; 82785; 82803; 82962; 82977; 83010; 83050; 83540; 83550; 83883; 84460; 84484; 85025; 85610; 85730; 86704; 86706; 86707; 86708; 86709; 87340; 87350; 93005; 93010; 94640; 94660; 99285-25; J1644